=== PATIENT | female | born 1965 | race Caucasian/White ===

== ENCOUNTER 2021-08-14 08:08 | Outpatient (CLI) | payer BC, SELFPAY ==
[2021-08-14 10:27] LABS: Chloride* 104 mmol/L (96-114); Sodium* 139 mmol/L (135-149)
[2021-08-14 10:28] LABS: Potassium* 4.2 mmol/L (3.6-5.1)
[2021-08-14 10:30] LABS: Alanine Aminotransferase* 24 U/L (4-35); Blood Urea Nitrogen* 32 mg/dL (7-30); Carbon Dioxide* 23 mmol/L (20-32); Cholesterol* 204 mg/dL (90-199); Estimated Glomerular Filt Rate 65.71; Glucose* 102 mg/dL (60-115)
[2021-08-14 10:31] LABS: Calcium* 9.5 mg/dL (8.4-10.6); HDL Cholesterol* 102 mg/dL (>=50); LDL Cholesterol Calculated 61 mg/dL (<100); Triglycerides* 206 mg/dL (40-149)
== END 2021-08-14 08:09 | disposition home or self-care (01) ==
PROVIDERS: PCP Family Medicine; Visit Provider Family Medicine
DX: I10 Essential (primary) hypertension (principal); E78.5 Hyperlipidemia, unspecified; E03.9 Hypothyroidism, unspecified; F41.9 Anxiety disorder, unspecified; E05.00 Thyrotoxicosis with diffuse goiter without thyrotoxic crisis or storm; Z11.3 Encounter for screening for infections with a predominantly sexual mode of transmission
CPT/HCPCS: 80048; 80061; 84443; 84460; 87624

== ENCOUNTER 2021-11-05 11:05 | Outpatient (CLI) | payer BC, SELFPAY ==
--- NOTE | 2021-11-05 11:30 | CRLHL7_ITS ---
For Patients: As a result of the Century Cures Act, medical imaging exams and procedure reports are released immediately into your electronic medical record. You may view this report before your referring provider. If you have questions, please contact your health care provider. BILATERAL SCREENING MAMMOGRAM WITH COMPUTER-AIDED DETECTION TECHNIQUE: CC and MLO views were obtained. These mammographic images have been obtained using full-field digital technique. These mammographic images were interpreted with the benefit of computer-aided detection. COMPARISON FILM: 10/24/20, 11/04/17, 06/10/16. FINDINGS: There are scattered areas of fibroglandular density IMPRESSION: There is no radiographic evidence for malignancy. ASSESSMENT: BI-RADS Category 1: Negative RECOMMENDATION: Routine screening mammogram in 1 year. A lay language report of this examination will be provided to the patient. Andres Nguyen M.D. Diagnostic Radiologist [email or web address] GARCIA/Dictated by: Andres Nguyen MD @ 11/05/2021 11:55:00 AM (Electronically Signed)
== END 2021-11-05 11:06 | disposition home or self-care (01) ==
PROVIDERS: PCP Family Medicine; Visit Provider Family Medicine
DX: Z12.31 Encounter for screening mammogram for malignant neoplasm of breast (principal)
CPT/HCPCS: 77063; 77067

== ENCOUNTER 2022-05-09 08:45 | Emergency (ER) | payer BC, SELFPAY ==
[2022-05-09 09:03] VITALS: BP 157/80; PULSE 61; RESP 18; TEMP 36.6; O2SAT 93; BMI 25.4
--- NOTE | 2022-05-09 09:47 | ED.GENADULT ---
HPI - General Adult General Time Seen by Provider: 09:47 Date Seen: 05/09/22 Chief complaint: Extremity Pain/Injury, Upper Stated complaint: numbness in r. arm Time Seen by Provider: 05/09/22 09:19 Source: patient Mode of arrival: ambulatory Limitations: no limitations History of Present Illness HPI narrative: Belkis is a 56-year-old female past medical history includes chronic lower back pain, anxiety, Graves disease, presents emerged department by private car with right arm tingling. Patient states over last few days she has had some dull ache on the right side of her neck that radiates down her right arm, she has some numbness and paresthesias to the ring and little finger, she feels like when she pours at cup of coffee he feels heavy, she denies any real weakness, denies any real pain. No recent injuries to her neck, she has seen a chiropractor in the past. He does has not been feeling well, she denies any chest pain, shortness of breath, nausea vomiting, no trouble swallowing, no trouble with speech, denies any headache. Related Data Home Medications Medication Instructions Recorded Confirmed acetaminophen 500 mg oral powder 500 mg PO Q6H PRN 04/15/22 04/15/22 packet (Tylenol Extra Strength) hydrocodone 5 mg-acetaminophen 325 1 tab PO BID PRN 04/15/22 04/15/22 mg tablet Previous Rx's Medication Instructions Recorded amlodipine 5 mg tablet 5 mg PO QDAY #90 tabs 08/14/21 levothyroxine 100 mcg tablet 100 mcg PO DAILY #90 tabs 01/23/22 atorvastatin 20 mg tablet 20 mg PO QHS #90 tabs 02/07/22 azithromycin 250 mg tablet See Rx Instructions PO .COMPLEX #6 04/15/22 (Zithromax Z-Selvin) tabs benzonatate 200 mg capsule 200 mg PO TID PRN cough #30 caps 04/15/22 methylprednisolone 4 mg tablets in 4 mg PO DAILY #21 ea 05/09/22 a dose pack (Medrol (Selvin)) Allergies Allergy/AdvReac Type Severity Reaction Status Date / Time No Known Drug Allergies Allergy Verified 04/15/22 08:44 Review of Systems Status of ROS: Reports: 10 or more systems reviewed and unremarkable except as noted in History and below [facility] Medical History Anxiety ?F41.9 - Anxiety disorder, unspecified (ICD-10) Chronic low back pain ?M54.50 - Low back pain, unspecified (ICD-10) ?G89.29 - Other chronic pain (ICD-10) Graves' disease ?E05.00 - Thyrotoxicosis with diffuse goiter without thyrotoxic crisis or storm (ICD-10) Health care directive on file (11/30/20) ?Z78.9 - Other specified health status (ICD-10) Hidradenitis suppurativa ?L73.2 - Hidradenitis suppurativa (ICD-10) Hyperlipidemia ?E78.5 - Hyperlipidemia, unspecified (ICD-10) Hypothyroidism ?E03.9 - Hypothyroidism, unspecified (ICD-10) Insomnia ?G47.00 - Insomnia, unspecified (ICD-10) Long QT syndrome (08/02/09) ?I45.81 - Long QT syndrome (ICD-10) 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 - Polyp of vocal cord and larynx (ICD-10) Surgical History (Updated 04/15/22 @ 15:46 by Andres Trimble MD) History of ankle surgery (03/2018) ?Z98.890 - Other specified postprocedural states (ICD-10) History of reduction mammoplasty (2001) ?Z98.890 - Other specified postprocedural states (ICD-10) Family History (Updated 08/14/21 @ 09:53 by Andres Trimble MD) Paternal Grandmother Breast cancer Social History 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 Muscle skeletal: Abduct to 180? the right shoulder, no pain with internal external rotation, no pain with empty can or Neer's Normal motor function to the median, ulnar, radial and anterior interosseous nerve distribution, CMS intact. Neuro: Alert awake and oriented x3, no focal deficit Heart: Normal sinus rhythm S1-S2 Lungs: Clear to auscultation bilaterally Const: Vital Signs, click to edit/add: Vital Signs - 24 hr 05/09/22 09:03 Temperature 97.9 F Pulse Rate [Right Pulse Oximeter] 61 Respiratory Rate 18 Blood Pressure [Ri ght Upper Arm] 157/80 H Pulse Oximetry 93 Oxygen Delivery Me thod Room Air Course Course Hospital Course: 9:00 AM: AIDET performed, exam seems more related to cervical pathology, atypical presentation for ACS, will obtain EKG, CBC, BMP and troponin level. IM dose Decadron 10 mg and Toradol 50 mg for her pain. Will obtain CT cervical spine without contrast. No focal deficits on exam. Differential diagnosis include but not limited to arthritis, fracture, spinal stenosis, sprain and strain, radiculopathy, atypical but considered CAD/mi, peripheral vascular disease, thrombosis. Reevaluation(s) Reevaluation #1: CT cervical spine without contrast: Impression: 1. No acute osseous abnormality. Multilevel cervical spondylosis with cervical kyphotic curvature. 2. Mild spinal canal stenosis at C5-6 and C6-7. 3. Severe right neural foramen stenosis at C4-5, moderate bilateral neural foramen narrowing at C5-6, and severe bilateral neural foramen narrowing at C6-7. Labs showed mild leukocytosis, BMP within normal limits, troponin was negative, ECG showed a normal sinus rhythm with a nonspecific T-wave abnormality, bpm a 78, no acute changes compared to previous. CT did showed severe right neural foraminal stenosis at C4-5 moderate bilateral neural foramina narrowing at C5-C6 and severe bilateral neural foramina narrowing at C6-C7 which would explain her symptoms. Patient will need to follow-up with primary care provider again and then referral to [facility] orthopedic spine. She is feeling better after above care given Time: 12:09 Vital Signs Vital signs: Initial Vital Signs Temperature 97.9 F 05/09/22 09:03 Temperature Source Temporal Artery Scan 05/09/22 09:03 Pulse Rate 61 05/09/22 09:03 Respiratory Rate 18 05/09/22 09:03 Blood Pressure 157/80 H 05/09/22 09:03 Blood Pressure Mean 105 05/09/22 09:03 Blood Pressure Position Sitting 05/09/22 09:03 Pulse Oximetry 93 05/09/22 09:03 Oxygen Delivery Method Room Air 05/09/22 09:03 Vital Signs Temperature 97.9 F 05/09/22 09:03 Pulse Rate 61 05/09/22 09:03 Respiratory Rate 18 05/09/22 09:03 Blood Pressure 157/80 H 05/09/22 09:03 Pulse Oximetry 93 05/09/22 09:03 Oxygen Delivery Method Room Air 05/09/22 09:03 Temperature 97.9 F 05/09/22 09:03 Pulse Rate 61 05/09/22 09:03 Respiratory Rate 18 05/09/22 09:03 Blood Pressure 157/80 H 05/09/22 09:03 Pulse Oximetry 93 05/09/22 09:03 Oxygen Delivery Method Room Air 05/09/22 09:03 Medical Decision Making Lab Data Labs: Lab Results 05/09/22 05/09/22 Range/Units 09:46 10:05 WBC 13.26 H (4.50-11.00) K/uL RBC 4.17 (4.00-5.20) m/uL Hgb 12.5 (12.0-16.0) gm/dL Hct 37.8 (33.0-51.0) % MCV 91 (80-100) fL MCH 30 (26-34) pg MCHC 33 (32-36) gm/dL RDW Coeff of Josselyn 13.0 (11.5-15.5) % Plt Count 440 (140-440) K/uL Neut % (Auto) 83.2 H (42.0-72.0) % Lymph % (Auto) 9.2 L (20-44) % Pitkin % (Auto) 6.3 (0.0-11.0) % Eos % (Auto) 0.7 (0.0-7.0) % Baso % (Auto) 0.1 (0.0-3.0) % Neut # (Auto) 11.00 H (1.7-7.0) K/uL Lymph # (Auto) 1.20 (0.90-2.90) K/uL Pitkin # (Auto) 0.80 (0.00-0.90) K/UL Eos # (Auto) 0.10 (0.00-0.50) K/uL Baso # (Auto) 0.00 (0.00-0.30) K/uL Sodium 138 (135-149) mmol/L Potassium 4.0 (3.6-5.1) mmol/L Chloride 103 (96-114) mmol/L Carbon Dioxide 27 (20-32) mmol/L BUN 8 (7-30) mg/dL Creatinine 0.7 (0.5-1.5) mg/dL Estimated Creat Clear 85.19 Estimated GFR 100 ml/min Glucose 111 (60-115) mg/dL Calcium 8.8 (8.4-10.6) mg/dL POC Troponin I 0.00 L (0.01-0.04) ng/ml Discharge Plan Discharge Clinical Impression: Foraminal stenosis of cervical region Patient Disposition: Home, Self-Care Condition: Improved Instructions: Cervical Spinal Stenosis (ED) Additional Instructions: Continue your current medications for your chronic lower back pain, will add Medrol Dosepak and to take as prescribed. Follow-up with primary care provider in the next 7-10 days consideration for MR cervical spine, and then referral for possible spine injections, through a pain clinic. Return if worsened symptoms. Activity Level: No Restrictions Discharge Diet: Regular Prescriptions: New methylprednisolone [Medrol (Selvin)] 4 mg tablets,dose pack 4 mg PO DAILY Qty: 21 0RF No Action amlodipine 5 mg tablet 5 mg PO QDAY Qty: 90 3RF hydrocodone-acetaminophen 5-325 mg tablet 1 tab PO BID PRN Tylenol Extra Strength 500 mg powder in packet 500 mg PO Q6H PRN azithromycin [Zithromax Z-Selvin] 250 mg tablet See Rx Instructions PO .COMPLEX Qty: 6 0RF Rx Instructions: For 250 mg dose pack: take 500 mg today (day 1), then 250 mg for 4 days (days 2-5) PO benzonatate 200 mg capsule 200 mg PO TID PRN (Reason: cough) Qty: 30 0RF levothyroxine 100 mcg tablet 100 mcg PO DAILY Qty: 90 1RF atorvastatin 20 mg tablet 20 mg PO QHS Qty: 90 1RF Follow Up/Referrals: Andres Trimble MD [Primary Care Provider] - Stand Alone Forms: [employer] Info Instructions
--- NOTE | 2022-05-09 09:49 | CRLHL7_ITS ---
For Patients: As a result of the Century Cures Act, medical imaging exams and procedure reports are released immediately into your electronic medical record. You may view this report before your referring provider. If you have questions, please contact your health care provider. Indication: right radicular pain. Technique: Noncontrast axial CT of the cervical spine with coronal and sagittal reformats are provided. Comparison: No prior studies available for comparison at this institution. Findings: There is degenerative reversal of normal cervical lordosis. No fractures. No prevertebral or paraspinal edema. No aggressive osseous lesions. The craniocervical junction is unremarkable. Degenerative changes in the it anterior atlantoaxial articulation. Anterior osteophytic spurring at C3-4 through C6-7. Severe interspace narrowing at C5-6 and C6-7. Rightward deviation of the nasal septum with septal spur. Incidental bone island in the right T1 lamina C1-2: No spinal canal stenosis C2-3: Advanced left facet arthrosis. No significant spinal canal stenosis or neural foramen narrowing. C3-4: Grade 1 anterolisthesis. Moderate facet arthrosis. No significant spinal canal stenosis or neural foramen narrowing. C4-5: Grade 1 anterolisthesis. Advanced right and mild left facet arthrosis and right uncovertebral joint hypertrophy. Severe right neural foramen narrowing. No significant spinal canal stenosis or left neural foramen narrowing. C5-6: Severe interspace narrowing. Disc osteophyte complex. Mild spinal canal stenosis. Moderate bilateral neural foramen narrowing due to uncovertebral joint hypertrophy. C6-7: Severe interspace narrowing. Disc osteophyte complex results in mild spinal canal stenosis. Severe neural foramen narrowing bilaterally due to uncovertebral joint hypertrophy. C7-T1: Advanced left and mild right facet arthrosis. No significant spinal canal stenosis or neural foramen narrowing. Impression: 1. No acute osseous abnormality. Multilevel cervical spondylosis with cervical kyphotic curvature. 2. Mild spinal canal stenosis at C5-6 and C6-7. 3. Severe right neural foramen stenosis at C4-5, moderate bilateral neural foramen narrowing at C5-6, and severe bilateral neural foramen narrowing at C6-7. Please note that all CT scans at this facility use dose modulation, iterative reconstruction, and/or weight-based dosing when appropriate to reduce radiation dose to as low as reasonably achievable. Dictated by Andres Marley MD @ 05/09/2022 12:02:41 PM (Electronically Signed)
[2022-05-09] MEDS: dexAMETHasone 10 MG/ML inj IM (10:05)
[2022-05-09] MEDS: KETOROLAC 30 MG/ML inj 15 MG IM (10:05)
[2022-05-09 10:26] LABS: Basophils Percent Auto 0.1 % (0.0-3.0); Eosinophils Percent Auto 0.7 % (0.0-7.0); Hematocrit 37.8 % (33.0-51.0); Hemoglobin* 12.5 gm/dL (12.0-16.0); Immature Granulocytes Pct Auto 0.5 %; Lymphocytes Percent Auto 9.2 % (20-44); Mean Corpuscular HGB Conc 33 gm/dL (32-36); Mean Corpuscular Hemoglobin 30 pg (26-34); Mean Corpuscular Volume 91 fL (80-100); Monocytes Percent Auto 6.3 % (0.0-11.0); Neutrophils Percent Auto 83.2 % (42.0-72.0); Platelet Count* 440 K/uL (140-440); Red Blood Count 4.17 m/uL (4.00-5.20); White Blood Count* 13.26 K/uL (4.50-11.00)
[2022-05-09 10:30] LABS: Chloride* 103 mmol/L (96-114)
[2022-05-09 10:31] LABS: Sodium* 138 mmol/L (135-149)
[2022-05-09 10:33] LABS: Creatinine* 0.7 mg/dL (0.5-1.5); Est. Creatinine Clearance* 85.19; Estimated Glomerular Filt Rate 100 ml/min
[2022-05-09 10:34] LABS: Blood Urea Nitrogen* 8 mg/dL (7-30); Calcium* 8.8 mg/dL (8.4-10.6); Carbon Dioxide* 27 mmol/L (20-32); Glucose* 111 mg/dL (60-115)
[2022-05-09 10:36] LABS: Slide Review Reflex No
[2022-05-09 12:24] VITALS: BP 157/80; PULSE 61; RESP 18; TEMP 36.6
== END 2022-05-09 12:25 | disposition home or self-care (01) ==
PROVIDERS: Emergency Provider Student in an Organized Health Care Education/Training Program; PCP Family Medicine
DX: M48.02 Spinal stenosis, cervical region (principal)
CPT/HCPCS: 36415; 72125; 80048; 84484; 85025; 93005; 96372; 99283; 99284; J1100; J1885

== ENCOUNTER 2022-05-27 09:02 | Emergency (ER) | payer BC, SELFPAY ==
[2022-05-27] VITALS (17 sets, daily range): BP systolic 115–134; BP diastolic 58–69; PULSE 64–81; RESP 20; TEMP 36.3; O2SAT 88–95; BMI 25.8
--- NOTE | 2022-05-27 09:29 | ED_ITS ---
HPI - Chest Pain General Time Seen by Provider: 09:29 Date Seen: 05/27/22 Chief Complaint: Chest Pain Stated Complaint: R side pain, difficulty breathing Time Seen by Provider: 05/27/22 09:29 Source: patient, RN notes reviewed and old records reviewed Mode of arrival: ambulatory Limitations: no limitations History of Present Illness HPI narrative: Neelima is a very pleasant 56-year-old female who has a history of chronic back and neck pain, recent physical therapy for cervical issues and right upper extremity spasm and weakness who comes to the emergency room for right-sided chest pain. Patient notes that she awoke with this right-sided chest pain 1 week ago. She cannot recall any specific injury to the area but thought it might be related to her neck problems. She notes that it seems to be much worse in the morning and it hurts when she is trying to take a deep breath. She notes that hurts more to lie flat. She has had an intermittent dry nonproductive cough since being diagnosed with and treated for bronchitis approximately a month and a half ago. She was treated with Tessalon Perles as well as an antibiotic but feels that she never really fully recovered. She denies any fever or chills. She is a smoker. She has been using pain medication meant for her neck for her chest discomfort. This seems to help somewhat. Related Data Home Medications Medication Instructions Recorded Confirmed acetaminophen 500 mg oral powder 500 mg PO Q6H PRN 04/15/22 05/13/22 packet (Tylenol Extra Strength) hydrocodone 5 mg-acetaminophen 325 1 tab PO BID PRN 04/15/22 05/13/22 mg tablet Previous Rx's Medication Instructions Recorded amlodipine 5 mg tablet 5 mg PO QDAY #90 tabs 08/14/21 levothyroxine 100 mcg tablet 100 mcg PO DAILY #90 tabs 01/23/22 atorvastatin 20 mg tablet 20 mg PO QHS #90 tabs 02/07/22 methylprednisolone 4 mg tablets in 4 mg PO DAILY #21 ea 05/09/22 a dose pack (Medrol (Selvin)) tizanidine 2 mg tablet 2 mg PO Q8H PRN muscle spasticity 05/13/22 #20 tabs hydrocodone 5 mg-acetaminophen 325 1 tab PO Q6H PRN pain #30 tabs 05/27/22 mg tablet levofloxacin 500 mg tablet 500 mg PO DAILY 7 days #7 tabs 05/27/22 Allergies Allergy/AdvReac Type Severity Reaction Status Date / Time No Known Drug Allergies Allergy Verified 05/13/22 08:05 Review of Systems Status of ROS Reports: 10 or more systems reviewed and unremarkable except as noted in History and below Const Denies: fever, chills or change in weight Eyes Denies: change in vision ENMT Denies: throat pain, neck pain, throat swelling or difficulty swallowing Cardio Reports: chest pain and shortness of breath with exertion; Denies: palpitations, edema, swelling of feet/ankles or lightheadedness Resp Reports: shortness of breath and cough; Denies: wheezing GI Denies: abdominal pain, nausea, vomiting, diarrhea or difficulty swallowing Denies: painful urination or urinary frequency Musculo Denies: neck pain Integ/Breast Denies: rash Neuro Denies: headache, numbness in extremities or weakness in extremities Allergy/Immuno Denies: throat swelling or wheezing PFSH PFSH Medical History Anxiety ?F41.9 - Anxiety disorder, unspecified (ICD-10) Chronic low back pain ?M54.50 - Low back pain, unspecified (ICD-10) ?G89.29 - Other chronic pain (ICD-10) Graves' disease ?E05.00 - Thyrotoxicosis with diffuse goiter without thyrotoxic crisis or storm (ICD-10) Health care directive on file (11/30/20) ?Z78.9 - Other specified health status (ICD-10) Hidradenitis suppurativa ?L73.2 - Hidradenitis suppurativa (ICD-10) Hyperlipidemia ?E78.5 - Hyperlipidemia, unspecified (ICD-10) Hypothyroidism ?E03.9 - Hypothyroidism, unspecified (ICD-10) Insomnia ?G47.00 - Insomnia, unspecified (ICD-10) Long QT syndrome (08/02/09) ?I45.81 - Long QT syndrome (ICD-10) 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 - Polyp of vocal cord and larynx (ICD-10) Surgical History History of ankle surgery (03/2018) ?Z98.890 - Other specified postprocedural states (ICD-10) History of reduction mammoplasty (2002) ?Z98.890 - Other specified postprocedural states (ICD-10) Family History Paternal Grandmother Breast cancer Social History 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: , 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, 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, 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, 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 Smoking Status: Current every day smoker What tobacco products do you use: cigarettes Do you use any of these nicotine containing products: None Second hand tobacco smoke exposure: No How often do you have a drink containing alcohol: monthly or less How many standard drinks containing alcohol do you have on a typical day: 1 or 2 How often do you have six or more drinks on one occasion: Never AUDIT-C Alcohol total score: 1 Non-prescribed substance use: denies use Little interest or pleasure in doing things: not at all Feeling down, depressed, or hopeless: not at all service: No Exam Narrative Exam Narrative: Alert and oriented. Talkative and nontoxic in appearance. Neck is supple without lymphadenopathy. Heart with regular rate and rhythm without murmur or rub. Lungs show decreased breath sounds on the right. No crackles or wheezing. Abdomen shows tenderness in the ribcage floating ribs on the right. Really no pain over epigastrium. She has discomfort with palpation on the right CVA. Nose rashes or lesions here. Bowel sounds are present. Lower extremities without edema or calf tenderness. Const Vital Signs, click to edit/add: Vital Signs - 24 hr 05/27/22 09:16 05/27/22 09:30 05/27/22 09:32 Temperature 97.4 F L Pulse Rate 74 73 Pulse Rate [Pulse Oximeter] 81 Respiratory Rate 20 Blood Pressure 122/58 L Blood Pressure [Right Upper Arm] 134/69 Pulse Oximetry 92 92 92 Oxygen Delivery Method Room Air 05/27/22 09:45 05/27/22 10:00 05/27/22 10:02 Temperature Pulse Rate 72 71 73 Pulse Rate [Pulse Oximeter] Respiratory Rate Blood Pressure 129/62 Blood Pressure [Right Upper Arm] Pulse Oximetry 93 94 94 Oxygen Delivery Method 05/27/22 10:15 05/27/22 10:44 05/27/22 10:45 Temperature Pulse Rate 71 71 69 Pulse Rate [Pulse Oximeter] Respiratory Rate Blood Pressure Blood Pressure [Right Upper Arm] Pulse Oximetry 95 94 95 Oxygen Delivery Method 05/27/22 11:00 05/27/22 11:01 05/27/22 11:15 Temperature Pulse Rate 66 65 65 Pulse Rate [Pulse Oximeter] Respiratory Rate Blood Pressure 128/60 Blood Pressure [Right Upper Arm] Pulse Oximetry 92 93 90 Oxygen Delivery Method 05/27/22 11:30 05/27/22 11:32 05/27/22 11:45 Temperature Pulse Rate 65 65 64 Pulse Rate [Pulse Oximeter] Respiratory Rate Blood Pressure 115/59 L Blood Pressure [Right Upper Arm] Pulse Oximetry 90 91 88 Oxygen Delivery Method 05/27/22 12:00 05/27/22 12:01 Temperature Pulse Rate 73 71 Pulse Rate [Pulse Oximeter] Respiratory Rate Blood Pressure 134/68 Blood Pressure [Right Upper Arm] Pulse Oximetry 93 92 Oxygen Delivery Method Documenting provider has reviewed patient's vital signs: yes Course Course Hospital Course: Differential diagnosis includes but is not limited to acute coronary syndrome, pneumonia, pleurisy, chest wall pain/costochondritis, PE, pneumothorax. Will place IV and draw labs to include CBC, troponin, comprehensive, CRP. Will also get EKG and chest x-ray. Patient receptive to the use of Toradol at this time. Given pleuritic nature of the pain as well as he reassuring EKG, I do not think that this is acute coronary syndrome. Reevaluation(s) Reevaluation #1: Chest x-ray with pleural effusion which is consistent with decreased breath sounds on that side. Patient receptive to CT with IV contrast at this time. Vital Signs Vital signs: Initial Vital Signs Temperature 97.4 F L 05/27/22 09:16 Temperature Source Temporal Artery Scan 05/27/22 09:16 Pulse Rate 81 05/27/22 09:16 Pulse Rhythm Regular 05/27/22 09:16 Respiratory Rate 20 05/27/22 09:16 Blood Pressure 134/69 05/27/22 09:16 Blood Pressure Mean 90 05/27/22 09:16 Blood Pressure Position Supine 05/27/22 09:16 Pulse Oximetry 92 05/27/22 09:16 Oxygen Delivery Method Room Air 05/27/22 09:16 Vital Signs Temperature 97.4 F L 05/27/22 09:16 Pulse Rate 81 05/27/22 09:16 Respiratory Rate 20 05/27/22 09:16 Blood Pressure 134/69 05/27/22 09:16 Pulse Oximetry 92 05/27/22 09:16 Oxygen Delivery Method Room Air 05/27/22 09:16 Temperature 97.4 F L 05/27/22 09:16 Pulse Rate 71 05/27/22 12:01 Respiratory Rate 20 05/27/22 09:16 Blood Pressure 134/68 05/27/22 12:01 Pulse Oximetry 92 05/27/22 12:01 Oxygen Delivery Method Room Air 05/27/22 09:16 MDM - Chest Pain MDM Narrative Medical decision making narrative: 1. Lung mass-pleural effusion likely causing pleuritic chest pain in this patient. Head given elevated white count and fluid will treat with antibiotic Levaquin. Patient does have a history of prolonged QT but no evidence of that on the CT today. I think that this is likely superior treatment than Zithromax or Augmentin. I did discuss history of QT with the patient and she is not aware of this diagnosis. 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 While we are treating for infection, I did discuss with Belkis the possibility that this is lung cancer. I will contact her primary doctor Nai so that she can get a referral. His office will call her with further instructions. O2 sats appropriate at this time. Will give patient refill of her Vicodin 5/325 1- 2 tabs p.o. q.6 hours p.r.n. number 30 sent to her pharmacy. 2. History of prolonged QT-normal QT today on EKG. 3. Disposition-home at this time. Seek medical attention or return to the emergency room for worsening symptoms. Medical Records Data Attestation: I reviewed the patient's medical records. Lab Data Attestation: I reviewed the patient's lab results. Labs: Lab Results 05/27/22 05/27/22 Range/Units 09:41 09:57 WBC 19.42 H (4.50-11.00) K/uL RBC 3.50 L (4.00-5.20) m/uL Hgb 10.1 L (12.0-16.0) gm/dL Hct 30.9 L (33.0-51.0) % MCV 88 (80-100) fL MCH 29 (26-34) pg MCHC 33 (32-36) gm/dL RDW Coeff of Josselyn 13.7 (11.5-15.5) % Plt Count 473 H (140-440) K/uL Neut % (Auto) 87.3 H (42.0-72.0) % Lymph % (Auto) 6.2 L (20-44) % Dunn % (Auto) 5.3 (0.0-11.0) % Eos % (Auto) 0.4 (0.0-7.0) % Baso % (Auto) 0.1 (0.0-3.0) % Neut # (Auto) 17.00 H (1.7-7.0) K/uL Lymph # (Auto) 1.20 (0.90-2.90) K/uL Dunn # (Auto) 1.00 H (0.00-0.90) K/UL Eos # (Auto) 0.10 (0.00-0.50) K/uL Baso # (Auto) 0.00 (0.00-0.30) K/uL Sodium 131 L (135-149) mmol/L Potassium 3.2 L (3.6-5.1) mmol/L Chloride 94 L (96-114) mmol/L Carbon Dioxide 32 (20-32) mmol/L BUN 10 (7-30) mg/dL Creatinine 0.7 (0.5-1.5) mg/dL Estimated Creat Clear 85.19 Estimated GFR 100 ml/min Glucose 120 H (60-115) mg/dL Calcium 8.1 L (8.4-10.6) mg/dL Total Bilirubin 0.5 (0.1-1.5) mg/dL Direct Bilirubin 0.4 (0.0-0.5) mg/dL AST 23 (12-35) U/L ALT 16 (4-35) U/L Alkaline Phosphatase 232 H (40-150) U/L C-Reactive Protein 39.9 H (0.5-1.0) mg/dL Total Protein 6.8 (6.0-8.3) g/dL Albumin 3.3 (3.3-5.0) g/dL POC Troponin I 0.00 L (0.01-0.04) ng/ml Imaging Data Chest x-ray: Attestation: I have reviewed the pertinent imaging results. My impression: Right-sided pleural effusion Radiologist's impression: Cardiovascular and mediastinum: Heart size and vasculature are normal in caliber and appearance. Lungs and pleural space: Small right pleural effusion with consolidation in the inferior aspect of the right hemithorax consistent with atelectasis or pneumonia. Left lung clear. Bones and soft tissues: No acute findings. CT scan - chest: Attestation: I have reviewed the pertinent imaging results. My impression: Large right-sided pleural effusion Radiologist's impression: he thoracic inlet and thyroid gland are unremarkable. The thoracic aorta is nonaneurysmal. There is no central filling defect to suggest pulmonary embolism. There is bulky subcarinal and right hilar pulmonary mass lesions with encasement of the right lower lobe bronchi measuring 6.7 x 5.3 centimeters in greatest axial dimension on series 2, image 47. there are additional enlarged right paratracheal lymph nodes the most prominent seen on series 2, image 29 measuring 1.2 centimeters. There is mild to moderate central bronchial thickening. There is dense postobstructive consolidation of the right lower lobe and inferior upper lobes with associated right-sided pleural effusion. There is minimal left basilar atelectasis and demonstration of a small pneumatocele. There is no evidence of pulmonary mass or suspicious pulmonary nodule. The partially visualized upper abdominal viscera are within normal limits. The thoracic vertebral body heights remain intact alignment without significant degenerative change or acute osseous abnormality. Impression: Demonstration of a bulky subcarinal and right hilar mass measuring 6.7 centimeters in greatest dimension with encasement of the right bronchovascular structures and occlusion of the right lower lobe bronchus with dense postobstructive infiltrate and atelectasis. Moderate right-sided pleural effusion. Recommend follow-up with bronchoscopy and tissue sampling for definitive characterization of presumed bronchogenic malignancy. No evidence of pulmonary embolus. ECG Data Attestation: I personally reviewed and interpreted this ECG as follows: ECG interpretation date: 05/27/22 Interpretation: EKG by my read shows normal sinus rhythm at a rate of 76. No acute ST or T-wave changes are noted. QT is normal at 452 milliseconds. Discharge Plan Discharge Clinical Impression: Lung mass, Chest pain Patient Disposition: Home, Self-Care Condition: Unchanged Additional Instructions: Start antibiotic called Levaquin today. Hydrocodone/acetaminophen may be used for pain as needed. Await phone call from Dr. Trimble office. Return to the emergency room as needed. Prescriptions: New levofloxacin 500 mg tablet 500 mg PO DAILY 7 Days Qty: 7 0RF hydrocodone-acetaminophen 5-325 mg tablet 1 tab PO Q6H PRN (Reason: pain) Qty: 30 0RF Rx Instructions: 1-2 tabs every 6 hours as needed for discomfort. Please do not take extra acetaminophen. No Action tizanidine 2 mg tablet 2 mg PO Q8H PRN (Reason: muscle spasticity) Qty: 20 0RF amlodipine 5 mg tablet 5 mg PO QDAY Qty: 90 3RF hydrocodone-acetaminophen 5-325 mg tablet 1 tab PO BID PRN Tylenol Extra Strength 500 mg powder in packet 500 mg PO Q6H PRN methylprednisolone [Medrol (Selvin)] 4 mg tablets,dose pack 4 mg PO DAILY Qty: 21 0RF levothyroxine 100 mcg tablet 100 mcg PO DAILY Qty: 90 1RF atorvastatin 20 mg tablet 20 mg PO QHS Qty: 90 1RF Follow Up/Referrals: Andres Trimble MD [Primary Care Provider] - Stand Alone Forms: [employer] Info Instructions
--- NOTE | 2022-05-27 09:44 | CRLHL7_ITS ---
For Patients: As a result of the Century Cures Act, medical imaging exams and procedure reports are released immediately into your electronic medical record. You may view this report before your referring provider. If you have questions, please contact your health care provider. Indication: Cough and right-sided chest pain Technique: Chest 1 view Comparison: None Findings/Impression: Cardiovascular and mediastinum: Heart size and vasculature are normal in caliber and appearance. Lungs and pleural space: Small right pleural effusion with consolidation in the inferior aspect of the right hemithorax consistent with atelectasis or pneumonia. Left lung clear. Bones and soft tissues: No acute findings. Dictated by Aris Trujillo MD @ 05/27/2022 10:30:04 AM (Electronically Signed)
--- OUTSIDE RECORDS SUMMARY | 2022-05-27 09:48 | XMS_ITS | Continuity of Care Document ---
Author Name Unknown Organization [facility] Address [address] [place] [id number] Care Team Providers Care [employer] [address] [address] Name Role Phone [facility] Unavailable Unav ailable Procedures Procedure Date INJECT SACROILIAC JOINT Inj for sacroiliac jt anesth Inj for sacroiliac jt anesth INJ FORAMEN EPIDURAL L/S INJ FORAMEN EPIDURAL L/S Inj for sacroiliac jt anesth Advance Directives Directive Yes / No Effective Date File Name No Information Encounters Encounter Description Practice Location Reason(s) For Visit Diagnoses Date Provider Providers Copied on Encounter [facility], [address] [place] [address], [id number], [facility] No Information [facility]. [address] [place] [address], [id number], . tel:[phone] Referring Provider: Renetta Bush, [address] [place] [address], [id number]. tel:[phone] [facility], [address] [place] [address], [id number], [facility] No Information [facility]. [address] [place] [address], [id number], . tel:[phone] Referring Provider: Renetta Bush, [address] [place] [address], [id number]. tel:[phone] [facility], [address], [place], [id number], [facility] [place] No Information [facility]. [address], [place], [id number], . tel:[phone] Referring Provider: Beth Vick, [address] [place], [address]. tel:[phone] [facility], [address], [place], [id number], [facility] [place] No Information [facility]. [address], [place], [id number], . tel:[phone] Referring Provider: Miles Jiménez, [address] [place] [address], [id number]. tel:[phone] Family History Family Member Type Diagnosis Age At Onset No Information Payers Payer name Insurance type Covered republican ID Authoriza ticarlton(s) No Information Social History Type Description Quantity Date Captured Comments Sex Female Smoking Status No Information Chief Complaint And Reason For Visit No Information Reason For Referral Reason For Referral No Information Plan Of Treatment Date Type Action Status No Information History Of Present Illness Encounter Date Complaint History Of Prese nt Illness No Information Functional Status Date Functional Assessmen t No Information Instructions Date Instruction Additional Infor mation No Information Assessments Type Assessment Date No Information Patient Care Teams Name Effective Dates (start - stop) Status Members No Information
--- OUTSIDE RECORDS SUMMARY | 2022-05-27 09:48 | XMS_ITS | Continuity of Care Document ---
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 [address] [place] [address], [id number], [place]. tel:[phone] Referring Provider: Miles Rey, [address] [facility] [address], [place], [address]. tel:[phone] [facility], [address] [place] [address], [id number], tel:[phone] [facility] No Information 2 [facility]. [address] [place] [address], [id number], . tel:[phone] Referring Provider: Liam Blakely, [address] [place], [address]. tel:[phone] [facility], [address] [place] [address], [id number], tel:[phone] [facility] No Information 2 [facility]. [address] [place] [address], [id number], . tel:[phone] Referring Provider: Renetta Bush, [address] [place], [address]. tel:[phone] [facility], [address] [place] [address], [id number], tel:[phone] [facility] No Information 0 [facility]. [address] [place] [address], [id number], . tel:[phone] Referring Provider: Liam Blakely, [address] [place], [address]. tel:[phone] Family History Family Member Type Diagnosis Age At Onset No Information Payers Payer name Insurance type Covered alliance party ID Authordereka ticarlton(s) [employer] Ariel Garnica BL [id number] Social History Type Description Quantity Date Captured [...]
--- OUTSIDE RECORDS SUMMARY | 2022-05-27 09:49 | XMS_ITS | Continuity of Care Document ---
Author Name Unknown Organization [facility] Address [address] [facility] 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 Name Role Phone Andres Thomason Unavailable Unavailable Allergies, Adverse Reactions, Alerts Substance Reaction Status Criticality No Known Allergies Active No Inform ation Medications Medication Instructions Dosage Effective Dates (start - stop) Status Comments hydrocodone 5 mg-acetaminophen 325 mg tablet take 1 tablet by oral route every 8-12 hours as needed for chronic pain; max 3/day - Active to fill 05/15, to start 05/20 benzonatate 200 mg capsule take 1 capsule by oral route 3 times every day as needed for cough 200 MG - Active atorvastatin 20 mg tablet take 1 tablet by oral route every day 20 MG - Active Tirosint 100 mcg capsule take 1 capsule by oral route every day 100 MCG - Active Tylenol Extra Strength 500 mg tablet take 2 tablet by oral route every 4 - 6 hours as needed not to exceed 8 tablets per 24hrs 1000 MG - Active hydrocodone 5 mg-acetaminophen 325 mg tablet take 1 tablet by oral route every 8-12 hours as needed for chronic pain; max 3/day - No Longer Active Fill when able Procedures Procedure Date Foll-up eval q3mo opiod tx OFFICE VISIT, EST TELEMEDICINE Foll-up eval q3mo opiod tx OFFICE/OUTPATIENT VISIT, EST Drug Urine Toxology With Chromatography Drug test def 8-14 classes Injection Sacroiliac Left Foll-up eval q3mo opiod tx OFFICE VISIT, EST TELEMEDICINE Foll-up eval q3mo opiod tx OFFICE VISIT, EST TELEMEDICINE Drug Urine Toxology With Chromatography Drug test def 8-14 classes Foll-up eval q3mo opiod tx OFFICE/OUTPATIENT VISIT, EST Foll-up eval q3mo opiod tx OFFICE VISIT, EST TELEMEDICINE Injection Sacroiliac Left Foll-up eval q3mo opiod tx OFFICE VISIT, EST TELEMEDICINE Drug Urine Toxology With Chromatography Drug test def 8-14 classes INJ TRIGGER POINT, 1/2 MUSCL Foll-up eval q3mo opiod tx OFFICE/OUTPATIENT VISIT, EST Kenalog Triamcinolone acetonide inj Foll-up eval q3mo opiod tx OFFICE VISIT, EST TELEMEDICINE Foll-up eval q3mo opiod tx OFFICE VISIT, EST TELEMEDICINE Injection Sacroiliac Left Foll-up eval q3mo opiod tx OFFICE VISIT, EST TELEMEDICINE Foll-up eval q3mo opiod tx OFFICE VISIT, EST TELEMEDICINE Drug test def 8-14 classes Drug Urine Toxology With Chromatography INJ TRIGGER POINT, 1/2 MUSCL Kenalog Triamcinolone acetonide inj PT-FOCUSED HLTH RISK ASSMT Foll-up eval q3mo opiod tx OFFICE/OUTPATIENT VISIT, EST Foll-up eval q3mo opiod tx OFFICE VISIT, EST TELEMEDICINE Foll-up eval q3mo opiod tx OFFICE VISIT, EST TELEMEDICINE Foll-up eval q3mo opiod tx OFFICE VISIT, EST TELEMEDICINE Injection Sacroiliac Left Foll-up eval q3mo opiod tx OFFICE VISIT, EST TELEMEDICINE Foll-up eval q3mo opiod tx OFFICE VISIT, EST TELEMEDICINE Foll-up eval q3mo opiod tx OFFICE VISIT, EST TELEMEDICINE INJ TRIGGER POINT, /2 MUSCL Kenalog Triamcinolone acetonide inj Foll-up eval q3mo opiod tx OFFICE VISIT, EST TELEMEDICINE Foll-up eval q3mo opiod tx OFFICE VISIT, EST TELEMEDICINE OFFICE VISIT, EST TELEMEDICINE Foll-up eval q3mo opiod tx OFFICE VISIT, EST TELEMEDICINE Foll-up eval q3mo opiod tx OFFICE VISIT, EST TELEMEDICINE Foll-up eval q3mo opiod tx Injection Sacroiliac Left OFFICE VISIT, EST TELEMEDICINE Foll-up eval q3mo opiod tx OFFICE VISIT, EST TELEMEDICINE Foll-up eval q3mo opiod tx OFFICE VISIT, EST TELEMEDICINE Foll-up eval q3mo opiod tx Drug Urine Toxology With Chromatography Kenalog Triamcinolone acetonide inj INJ TRIGGER POINT, 1/2 MUSCL Foll-up eval q3mo opiod tx OFFICE/OUTPATIENT VISIT, EST Foll-up eval q3mo opiod tx OFFICE VISIT, EST TELEMEDICINE 20 INJ FORAMEN EPIDURAL L/S BILATERAL OFFICE VISIT, EST TELEMEDICINE Foll-up eval q3mo opiod tx OFFICE VISIT, EST TELEMEDICINE 20 Foll-up eval q3mo opiod tx OFFICE VISIT, EST TELEMEDICINE 20 Foll-up eval q3mo opiod tx INJ TRIGGER POINT, 02/18 [facility] Foll-up eval q3mo opiod tx OFFICE/OUTPATIENT VISIT, EST INJ FORAMEN EPIDURAL L/S BILATERAL OFFICE VISIT, EST TELEMEDICINE 20 Foll-up eval q3mo opiod tx Foll-up eval q3mo opiod tx OFFICE VISIT, EST TELEMEDICINE 20 Foll-up eval q3mo opiod tx OFFICE VISIT, EST TELEMEDICINE 20 Injection Sacroiliac Left Foll-up eval q3mo opiod tx OFFICE VISIT, EST TELEMEDICINE 20 Foll-up eval q3mo opiod tx OFFICE VISIT, EST TELEMEDICINE Drug Urine Toxology With Chromatography PT-FOCUSED HLTH RISK ASSAK OFFICE/OUTPATIENT VISIT, NEW Advance Directives Directive Yes / No Effective Date File Name No Information Encounters Encounter Description Practice Location Reason(s) For Visit Diagnoses Date Provider Providers Copied on Encounter OFFICE VISIT, EST TELEMEDICINE [facility], [address] [facility] [place], [id number] , [place] tel:[phone] [facility] [place] low back pain (chief complaint) Spinal stenosis, lumbar regionSacroilii tisMyalgia, other siteRadiculopat hy, lumbar regionLong term (current) use of opiate analgesicChroni c pain syndrome Apr- 3 Jenny Campos. [address] [place] [address], [id number], [place]. tel:[phone] Referring Provider: Miles Jiménez, [address] [place] [address], [id number]. tel:[phone] OFFICE/OUTPAT IENT VISIT, [facility], [address] [place] [address], [id number] , [place] [phone] [facility] low back pain (chief complaint) SacroiliitisSpi nal stenosis, lumbar regionRadiculop athy, lumbar regionMyalgia, other siteLong term (current) use of opiate analgesic Apr-0 3 Kelsey Arrington. [address] [place] [address], [id number], [place]. tel:[phone] Referring Provider: Miles Jiménez, [address] [place] [address], [id number]. tel:[phone] [facility], [address] [place] [address], [id number] , [place] [phone] [facility] No Information 3 Kelsey Arrington. [address] [place] [address], [id number], [place]. tel:[phone] [facility], [address] [place] [address], [id number] , [place] tel:[phone] [facility] Sacroiliitis, not elsewhere classified 3 Krissy Aquino. [address] [facility] [address], [place], [id number], [place]. tel:[phone] Referring Provider: Miles Jiménez, [address] [place] [address], [address]. tel:[phone] OFFICE VISIT, EST TELEMEDICINE [facility], [address] [place] [address], [id number] , [place] tel:[phone] [facility] low back pain (chief complaint) SacroiliitisSpi nal stenosis, lumbar regionRadiculop athy, lumbar regionMyalgia, other siteLong term (current) use of opiate analgesic 0 3 Colehina Arrington. [address] [place] [address], [id number], [place]. tel:[phone] OFFICE VISIT, EST TELEMEDICINE [facility], [address] [place] [address], [id number] , [place] tel:[phone] [facility] low back pain (chief complaint) SacroiliitisSpi nal stenosis, lumbar regionRadiculop athy, lumbar regionMyalgia, other siteLong term (current) use of opiate analgesic 2 Colehina Arrington. [address] [place] [address], [id number], [place]. tel:[phone] [facility], [address] [place] [address], [id number] , [place] [phone] [facility] No Information 2 Cole Murphy. [address] [place] [address], [id number], [place]. tel:[phone] Referring Provider: Miles Jiménez, [address] [place] [address], [id number]. tel:[phone] OFFICE/OUTPAT IENT VISIT, [facility], [address] [place] [address], [id number] , [place] tel:[phone] [facility] low back pain (chief complaint) SacroiliitisSpi nal stenosis, lumbar regionRadiculop athy, lumbar regionMyalgia, other siteLong term (current) use of opiate analgesicEncoun ter for therapeutic drug level monitoring 2 Cole Murphy. [address] [place] [address], [id number], [place]. tel:[phone] Referring Provider: Miles Jiménez, [address] [place] [address], [address]. tel:[phone] OFFICE VISIT, EST TELEMEDICINE [facility], [address] [place] [address], [id number] , [place] [phone] [facility] low back pain (chief complaint) SacroiliitisSpi nal stenosis, lumbar regionRadiculop athy, lumbar regionMyalgia, other siteLong term (current) use of opiate analgesic Oct-3 2 Cole Murphy. [address] [place] [address] [address], [place], [id number], [place]. tel:[phone] [facility], [address] [place] [address], [id number] , [place] tel:[phone] [facility] Sacroiliitis, not elsewhere classified Sep-3 2 Reddy Wheeler. [address] [place] [address], [id number], [place]. tel:[phone] Referring Provider: Miles Jiménez, [address] [place] [address], [address]. tel:[phone] OFFICE VISIT, EST TELEMEDICINE [facility], [address] [place] [address], [id number] , [place] [phone] [facility] low back pain (chief complaint) SacroiliitisSpi nal stenosis, lumbar regionRadiculop athy, lumbar regionMyalgia, other siteLong term (current) use of opiate analgesic Sep-2 2 Kelsey Arrington. [address] [place] [address], [id number], [place]. tel:[phone] Referring Provider: Miles Jiménez, [address] [place] [address], [address]. tel:[phone] [facility], [address] [place] [address], [id number] , [place] tel:[phone] [facility] No Information 2 Colehina Arrington. [address] [place] [address] 11 [facility] [address], [place], [id number], [place]. tel:[phone] Referring Provider: Miles Jiménez, [address] [place] [address], [id number]. [phone] OFFICE/OUTPAT IENT VISIT, EST [facility], [address] [place] [address], [id number] , [place] tel:[phone] [facility] low back pain (chief complaint) SacroiliitisSpi nal stenosis, lumbar regionRadiculop athy, lumbar regionMyalgia, other siteLong term (current) use of opiate analgesic 2 Kelsey Arrington. [address] [facility] [address], [place], [id number], [place]. [phone] Referring Provider: Miles Jiménez, [address] [place] [address], [address]. [phone] OFFICE VISIT, [facility] TELEMEDICINE [facility], [address] [place] [address], [id number] , [place] tel:[phone] [facility] Back Pain (chief complaint) SacroiliitisSpi nal stenosis, lumbar regionRadiculop athy, lumbar regionMyalgia, other siteLong term (current) use of opiate analgesic 2 Colehina Arrington. [address] [place] [address] [address], [place], [id number], [place]. tel:[phone] OFFICE VISIT, [facility] TELEMEDICINE [facility], [address] [place] [address], [id number] , [place] tel:[phone] [facility] Back Pain (chief complaint) SacroiliitisSpi nal stenosis, lumbar regionRadiculop athy, lumbar regionMyalgia, other siteLong term (current) use of opiate analgesic 2 Kelsey Arrington. [address] [place] [address] [address], [place], [id number], [place]. tel:[phone] [facility], [address] [place] [address], [id number] , [place] tel:[phone] [facility] Sacroiliitis, not elsewhere classified 2 Eleazar Jackson. [address] [place] [address], [id number], [place]. tel:[phone] Referring Provider: Miles Jiménez, [address] [place] [address], [address]. tel:[phone] OFFICE VISIT, [facility] TELEMEDICINE [facility], [address] [place] [address], [id number] , [place] tel:[phone] [facility] Back Pain (chief complaint) SacroiliitisSpi nal stenosis, lumbar regionRadiculop athy, lumbar regionMyalgia, other siteLong term (current) use of opiate analgesic James-0 2 Cole Murphy. [address] [place] [address] [address], [place], [id number], [place]. tel:[phone] Referring Provider: Miles Jiménez, [address] [place] [address], [address]. tel:[phone] OFFICE VISIT, [facility], [address] [place] [address], [id number] , [place] tel:[phone] [facility] Back Pain (chief complaint) SacroiliitisSpi nal stenosis, lumbar regionRadiculop athy, lumbar regionMyalgia, other siteLong term (current) use of opiate analgesic June-0 2 Colekayla Arrington. [address] [place] [address] [address], [place], [id number], [place]. tel:[phone] [facility], [address] [place] [address], [id number] , [place] [phone] [facility] No Information Apr- 2 Cole Murphy. [address] [place] [address] [address], [place], [id number], [place]. tel:[phone] OFFICE/OUTPAT IENT VISIT, [facility], [address] [place] [address], [id number] , [place] tel:[phone] [facility] Back Pain (chief complaint) Myalgia, other siteSacroiliiti sSpinal stenosis, lumbar regionRadiculop athy, lumbar regionLong term (current) use of opiate analgesicEncoun ter for screening for other disorderEncdaniel [facility] er for therapeutic drug level monitoring 2 Colehina Arrington. [address] [facility] [address], [id number], [place]. tel:[phone] Referring Provider: Miles Jiménez, [address] [place] [address], [address]. tel:[phone] OFFICE VISIT, EST TELEMEDICINE [facility], [address] [place] [address], [id number] , [place] [phone] [facility] [place] No Information 2 Cole Murphy. [address] [place] [address], [id number], [place]. tel:[phone] Referring Provider: Miles Jiménez, [address] [place] [address], [address]. tel:[phone] OFFICE VISIT, EST TELEMEDICINE [facility], [address] [place] [address], [id number] , [place] [phone] [facility] Back Pain (chief complaint) Radiculopathy, lumbar regionSacroilii tisSpinal stenosis, lumbar regionMyalgia, other siteLong term (current) use of opiate analgesic 2 Cole Murphy. [address] [place] [address], [id number], [place]. tel:[phone] OFFICE VISIT, EST TELEMEDICINE [facility], [address] [place] [address], [id number] , [place] [phone] [facility] Back Pain (chief complaint) Radiculopathy, lumbar regionSacroilii tisSpinal stenosis, lumbar regionMyalgia, other siteLong term (current) use of opiate analgesic 1 Cole Murphy. [address] [place] [address], [id number], [place]. tel:[phone] [facility], [address] [place] [address], [id number] , [place] tel:[phone] [facility] Sacroiliitis Dec-0 3-202 1 Eleazar Jackson. [address] [place] [address], [id number], [place]. tel:[phone] Referring Provider: Miles Jiménez, [address] [place] [address], [address]. tel:[phone] OFFICE VISIT, EST TELEMEDICINE [facility], [address] [place] [address], [id number] , [place] tel:[phone] [facility] Back Pain (chief complaint) Radiculopathy, lumbar regionSpinal stenosis, lumbar regionSacroilii tisMyalgia, other siteLong term (current) use of opiate analgesic Dec-0 2- 1 Kelsey Arrington. [address] [place] [address], [id number], [place]. tel:[phone] Referring Provider: Miles Jiménez, [address] [place] [address], [address]. tel:[phone] OFFICE VISIT, EST TELEMEDICINE [facility], [address] [place] [address], [id number] , [place] tel:[phone] [facility] Back Pain (chief complaint) Radiculopathy, lumbar regionSpinal stenosis, lumbar regionSacroilii tisMyalgia, other siteLong term (current) use of opiate analgesic Nov-0 3-202 1 Kelsey Arrington. [address] [place] [address], [id number], [place]. tel:[phone] OFFICE VISIT, EST TELEMEDICINE [facility], [address] [place] [address], [id number] , [place] tel:[phone] [facility] Back Pain (chief complaint) Myalgia, other siteSacroiliiti sRadiculopathy, lumbar regionSpinal stenosis, lumbar regionLong term (current) use of opiate analgesic Oct-0 4-202 1 Cole Murphy. [address] [place] [address], [id number], [place]. tel:[phone] Referring Provider: Miles Jiménez, [address] [place] [address], [address]. tel:[phone] [facility], [address] [place] [address], [id number] , [place] tel:[phone] [facility] Myalgia, other site Sep-1 0- 1 Cole Murphy. [address] [place] [address] [address], [place], [id number], [place]. tel:[phone] Referring Provider: Miles Jiménez, [address] [place] [address], [address]. tel:[phone] OFFICE VISIT, EST TELEMEDICINE [facility], [address] [place] [address], [id number] , [place] [phone] [facility] Back Pain (chief complaint) SacroiliitisRad iculopathy, lumbar regionSpinal stenosis, lumbar regionLong term (current) use of opiate analgesicMyalgi a, other site Sep-0 3 1 Cole Murphy. [address] [place] [address] [address], [place], [id number], [place]. tel:[phone] Referring Provider: Miles Jiménez, [address] [place] [address], [address]. tel:[phone] OFFICE VISIT, EST TELEMEDICINE [facility], [address] [place] [address], [id number] , [place] [phone] [facility] Back Pain (chief complaint) SacroiliitisRad iculopathy, lumbar regionSpinal stenosis, lumbar regionLong term (current) use of opiate analgesicMyalgi a, other site Aug-0 1 Cole Murphy. [address] [place] [address] [address], [place], [id number], [place]. tel:[phone] Referring Provider: Miles Jiménez, [address] [place] [address], [address]. tel:[phone] OFFICE VISIT, EST TELEMEDICINE [facility], [address] [place] [address], [id number] , [place] tel:[phone] [facility] Back Pain (chief complaint) SacroiliitisRad iculopathy, lumbar regionSpinal stenosis, lumbar regionLong term (current) use of opiate analgesicMyalgi a, other site 1 Kelsey Arrington. [address] [facility] [address], [place], [id number], [place]. [phone] Referring Provider: Miles Jiménez, [address] [place] [address], [address]. [phone] OFFICE VISIT, EST TELEMEDICINE [facility], [address] [place] [address], [id number] , [place] tel:[phone] [facility] Back Pain (chief complaint) SacroiliitisRad iculopathy, lumbar regionSpinal stenosis, lumbar regionLong term (current) use of opiate analgesicMyalgi a, other site 1 Kelsey Arrington. [address] [place] [address] [address], [place], [id number], [place]. [phone] Referring Provider: Miles Jiménez, [address] [place] [address], [address]. [phone] OFFICE VISIT, EST TELEMEDICINE [facility], [address] [place] [address], [id number] , [place] tel:[phone] [facility] Back Pain (chief complaint) SacroiliitisRad iculopathy, lumbar regionSpinal stenosis, lumbar regionLong term (current) use of opiate analgesicMyalgi a, other site 1 Kelsey Arrington. [address] [place] [address] [address], [place], [id number], [place]. tel:[phone] Referring Provider: Miles Jiménez, [address] [place] [address], [address]. tel:[phone] [facility], [address] [place] [address], [id number] , [place] tel:[phone] [facility] Sacroiliitis Apr-2 1 Eleazar Jackson. [address] [place] [address], [id number], [place]. tel:[phone] Referring Provider: Miles Jiménez, [address] [place] [address], [address]. tel:[phone] OFFICE VISIT, [facility] TELEMEDICINE [facility], [address] [place] [address], [id number] , [place] tel:[phone] [facility] Back Pain (chief complaint) Radiculopathy, lumbar regionSpinal stenosis, lumbar regionLong term (current) use of opiate analgesicMyalgi a, other siteSacroiliiti s 0 1 Kelsey Arrington. [address] [place] [address] [address], [place], [id number], [place]. tel:[phone] Referring Provider: Miles Jiménez, [address] [place] [address], [address]. tel:[phone] OFFICE VISIT, EST [facility], [address] [place] [address], [id number] , [place] tel:[phone] [facility] Back Pain (chief complaint) Radiculopathy, lumbar regionSpinal stenosis, lumbar regionLong term (current) use of opiate analgesicMyalgi a, other siteSacroiliiti s 1 Kelsey Arrington. [address] [place] [address] [address], [place], [id number], [place]. tel:[phone] Referring Provider: Miles Jiménez, [address] [place] [address], [address]. tel:[phone] OFFICE VISIT, EST TELEMEDICINE [facility], [address] [place] [address], [id number] , [place] tel:[phone] [facility] Back Pain (chief complaint) Radiculopathy, lumbar regionSpinal stenosis, lumbar regionLong term (current) use of opiate analgesicSacroi liitisMyalgia, other site Fe0 1 Kelsey Arrington. [address] [place] [address] [address], [place], [id number], [place]. tel:[phone] Referring Provider: Miles Jiménez, [address] [place] [address], [address]. [phone] [facility], [address] [place] [address], [id number] , [place] tel:[phone] [facility] No Information 1 Kelsey Arrington. [address] [place] [address] [address] [place], [id number], [place]. [phone] OFFICE/OUTPAT IENT VISIT, [facility], [address] [place] [address], [id number] , [place] tel:[phone] [facility] Back Pain (chief complaint) Radiculopathy, lumbar regionSpinal stenosis, lumbar regionLong term (current) use of opiate analgesicSacroi liitisMyalgia, other site 1 Cole Murphy. [address] [place] [address], [id number], [place]. [phone] Referring Provider: Miles Jiménez, [address] [place] [address], [address]. [phone] OFFICE VISIT, [facility] TELEMEDICINE [facility], [address] [place] [address], [id number] , [place] tel:[phone] [facility] Back Pain (chief complaint) Radiculopathy, lumbar regionSpinal stenosis, lumbar regionLong term (current) use of opiate analgesicSacroi liitisMyalgia, other site 0 Cole Murphy. [address] [place] [address] [address], [id number], [place]. tel:[phone] Referring Provider: Miles Jiménez, [address] [place] [address], [id number]. tel:[phone] [facility], [address] [place] [address], [id number] , [place] [phone] [facility] Radiculopathy, lumbar region 0 Reddy Wheeler. [address] [place] [address], [id number], [place]. tel:[phone] Referring Provider: Miles Jiménez, [address] [place] [address], [address]. tel:[phone] OFFICE VISIT, [facility], [address] [place] [address], [id number] , [place] tel:[phone] [facility] Back Pain (chief complaint) Radiculopathy, lumbar regionSpinal stenosis, lumbar regionLong term (current) use of opiate analgesicSacroi liitisMyalgia, other site 0 Cole Murphy. [address] [place] [address] [address], [id number], [place]. tel:[phone] Referring Provider: Miles Jiménez, [address] [place] [address], [address]. tel:[phone] OFFICE VISIT, [facility], [address] [place] [address], [id number] , [place] tel:[phone] [facility] Back Pain (chief complaint) Radiculopathy, lumbar regionSpinal stenosis, lumbar regionLong term (current) use of opiate analgesicSacroi liitisMyalgia, other site 0 Cole Murphy. [address] [place] [address] [address], [id number], [place]. tel:[phone] Referring Provider: Miles Jiménez, [address] [place] [address], [address]. tel:[phone] OFFICE VISIT, EST [facility], [address] [place] [address], [id number] , [place] tel:[phone] [facility] Back Pain (chief complaint) Radiculopathy, lumbar regionSpinal stenosis, lumbar regionLong term (current) use of opiate analgesicSacroi liitisMyalgia, other site 0 Cole Murphy. [facility] [address], [place], [id number], [place]. tel:[phone] Referring Provider: Miles Jiménez, [address] [place] [address], [id number]. tel:[phone] OFFICE/OUTPAT IENT VISIT, [facility], [address] [place] [address], [id number] , [place] [phone] [facility] Back Pain (chief complaint) Radiculopathy, lumbar regionSpinal stenosis, lumbar regionLong term (current) use of opiate analgesicSacroi liitisMyalgia, other site 0 Cole Murphy. [address] [place] [address] [address], [id number], [place]. tel:[phone] Referring Provider: Miles Jiménez, [address] [place] [address], [address]. tel:[phone] [facility], [address] [place] [address], [id number] , [place] tel:[phone] [facility] Radiculopathy, lumbar region 0 Nava Campos. [address] [place] [address], [id number], [place]. tel:[phone] Referring Provider: Miles Jiménez, [address] [place] [address], [address]. tel:[phone] OFFICE VISIT, EST TELEMEDICINE [facility], [address] [place] [address], [id number] , [place] [phone] [facility] Back Pain (chief complaint) Radiculopathy, lumbar regionSpinal stenosis, lumbar regionLong term (current) use of opiate analgesicSacroi liitis 0 Colehina Arrington. [address] [place] [address] [address], [place], [place], [id number], [place]. tel:[phone] Referring Provider: Miles Jiménez, [address] [place] [address], [address]. tel:[phone] [facility], [address] [place] [address], [id number] , [place] tel:[phone] [facility] Radiculopathy, lumbar region Jul- 0 Kelsey Arrington. [address] [place] [address] [address], [id number], [place]. tel:[phone] OFFICE VISIT, EST TELEMEDICINE [facility], [address] [place] [address], [id number] , [place] [phone] [facility] Back Pain (chief complaint) Radiculopathy, lumbar regionSpinal stenosis, lumbar regionLong term (current) use of opiate analgesicSacroi liitis Jul- 0 Kelsey Arrington. [address] [facility] [address], [id number], [place]. tel:[phone] Referring Provider: Miles Jiménez, [address] [place] [address], [address]. tel:[phone] OFFICE VISIT, EST TELEMEDICINE [facility], [address] [place] [address], [id number] , [place] tel:[phone] [facility] Back Pain (chief complaint) Low back painChronic pain syndromeRadicul opathy, lumbar regionSpinal stenosis, lumbar regionLong term (current) use of opiate analgesic 0 Colehina Arrington. [address] [place] [address] [address], [id number], [place]. tel:[phone] [facility], [address] [place] [address], [id number] , [place] [phone] [facility] Low back pain 0 Live Aquino. [address] [place] [address], [id number], [place]. tel:[phone] Referring Provider: Miles Jiménez, [address] [place] [address], [address]. tel:[phone] OFFICE VISIT, EST TELEMEDICINE [facility], [address] [place] [address], [id number] , [place] tel:[phone] [facility] Back Pain (chief complaint) Chronic pain syndromeRadicul opathy, lumbar regionSpinal stenosis, lumbar regionLong term (current) use of opiate analgesic Apr-1 0-202 0 Colehina Arrington. [address] [facility] [address], [id number], [place]. tel:[phone] Referring Provider: Miles Jiménez, [address] [place] [address], [address]. tel:[phone] OFFICE VISIT, [facility], [address] [place] [address], [id number] , [place] tel:[phone] [facility] Back Pain (chief complaint) Chronic pain syndromeRadicul opathy, lumbar regionSpinal stenosis, lumbar regionLong term (current) use of opiate analgesicLow back pain Apr-1 0 Colehina Arrington. [address] [facility] [address], [id number], [place]. tel:[phone] Referring Provider: Miles Jiménez, [address] [place] [address], [address]. tel:[phone] OFFICE/OUTPAT IENT VISIT, [facility], [address] [place] [address], [id number] , [place] tel:[phone] [facility] Back Pain (chief complaint) Chronic pain syndromeOther intervertebral disc degeneration, lumbar regionRadiculop athy, lumbar regionSpinal stenosis, lumbar regionEncounter for therapeutic drug level monitoringLong term (current) use of opiate analgesic Mar-0 6- 0 Kelsey Arrington. [address] [facility] 11 [facility] [address], [id number], [place]. tel:[phone] Referring Provider: Abdifatah Henry, [facility] [address] [place], [address]. tel:[phone] Family History Family Member Type Diagnosis Age At Onset No Information Payers Payer name Insurance type Covered democrat ID Authordereka richmond(s) Ariel Cross Ariel Garnica DALE [id number] Social History Type Description Quantity Date Captured Comments Alcohol Use Details No Caffeine Use Details Unknown Tobacco Use Status Occasional cigarette smoker Smoking Status Light tobacco smoker Sex Female Chief Complaint And Reason For Visit From encounter dated '05/15/2022 10:32'. low back pain (chief complaint). Description: Severity level is 3. Duration: chronic. The problem is stable. It occurs persistently. Location of pain is lower back. Symptoms are aggravated by daily activities and overuse. Symptoms are relieved by pain meds/drugs and rest. Reason For Referral Reason For Referral No Information Plan Of Treatment Date Type Action Status Goal STRADDLE BUGGY OPERATOR Scanned. Due on due Goal Creatinine. Due on due Goal ALT (SGPT). Due on due Goal Order Annual PT. Due on due Goal CIGARETTE AND FILTER CHIEF INSPECTOR Paperwork. Due on due Goal OARS. Due on due Goal UDT. Due on due Goal Update Social History. Due o n due Goal AST (SGOT). Due on due Goal PHQ-9. Due on du e Goal Lipid panel. Due on due Goal CT-Colonography. Due on due Goal Hepatitis C screening. Due o n due Goal Review Allergy List. Due on due Goal Medication Recon ciliation. Due on due Goal Weight. Due on d ue Goal HPV. Due on due Goal FIT. Due on due Goal Unhealthy drug u se screening. Due on due Goal Zoster vaccine (1st). Due on due Goal Height. Due on d ue Goal Tobacco Use. Due on due Goal FIT-DNA. Due on due Goal Unhealthy drug u se screening. Due on due Goal Lipid panel. Due on due Goal CT-Colonography. Due on due Goal PHQ-9. Due on du e Goal Zoster vaccine (). Due on due Goal Height. Due on d ue Goal Update Social History. Due o n due Goal Medication Recon ciliation. Due on due Goal FIT. Due on due Goal Creatinine. Due on due Goal UDT. Due on due Goal STRADDLE BUGGY OPERATOR Scanned. Due on due Goal ALT (SGPT). Due on due Goal AST (SGOT). Due on due Goal Order Annual PT. Due on due Goal OARS. Due on due Goal CIGARETTE AND FILTER CHIEF INSPECTOR Paperwork. Due on due Goal Review Allergy List. Due on due Goal FIT-DNA. Due on due Goal Weight. Due on d ue Goal HPV. Due on due Goal Tobacco Use. Due on due Goal Hepatitis C screening. Due o n due Goal STRADDLE BUGGY OPERATOR Scanned. Due on due Goal AST (SGOT). Due on due Goal UDT. Due on due Goal OARS. Due on due Goal CIGARETTE AND FILTER CHIEF INSPECTOR Paperwork. Due on due Goal Creatinine. Due on due Goal Medication Recon ciliation. Due on due Goal Review Allergy List. Due on due Goal PHQ-9. Due on du e Goal FIT. Due on due Goal FIT-DNA. Due on due Goal Hepatitis C screening. Due o n due Goal Tobacco Use. Due on due Goal Weight. Due on d ue Goal Order Annual PT. Due on due Goal ALT (SGPT). Due on due Goal CT-Colonography. Due on due Goal HPV. Due on due Goal Update Social History. Due o n due Goal Zoster vaccine (1st). Due on due Goal Lipid panel. Due on due Goal Unhealthy drug u se screening. Due on due Goal Height. Due on d ue Goal Creatinine. Due on due Goal Zoster vaccine (1st). Due on due Goal Medication Recon ciliation. Due on due Goal Order Annual PT. Due on due Goal UDT. Due on due Goal Lipid panel. Due on 023 due Goal PHQ-9. Due on du e Goal FIT. Due on due Goal HPV. Due on due Goal Height. Due on d ue Goal Weight. Due on d ue Goal CT-Colonography. Due on due Goal STRADDLE BUGGY OPERATOR Scanned. Due on 023 due Goal OARS. Due on due Goal Update Social History. Due o n due Goal Review Allergy List. Due on due Goal Unhealthy drug u se screening. Due on due Goal Tobacco Use. Due on 023 due Goal FIT-DNA. Due on due Goal Hepatitis C screening. Due o n due Goal ALT (SGPT). Due on due Goal AST (SGOT). Due on due Goal CIGARETTE AND FILTER CHIEF INSPECTOR Paperwork. Due on due Goal Lipid panel. Due on due Goal PHQ-9. Due on du e Goal Medication Recon ciliation. Due on due Goal Unhealthy drug u se screening. Due on due Goal CT-Colonography. Due on due Goal FIT. Due on due Goal CIGARETTE AND FILTER CHIEF INSPECTOR Paperwork. Due on due Goal Creatinine. Due on due Goal UDT. Due on due Goal STRADDLE BUGGY OPERATOR Scanned. Due on due Goal Order Annual PT. Due on due Goal AST (SGOT). Due on due Goal ALT (SGPT). Due on due Goal OARS. Due on due Goal Hepatitis C screening. Due o n due Goal Tobacco Use. Due on due Goal Weight. Due on d ue Goal Review Allergy List. Due on due Goal Update Social History. Due o n due Goal FIT-DNA. Due on due Goal Zoster vaccine (1st). Due on due Goal HPV. Due on due Goal Height. Due on d ue Goal OARS. Due on due Goal ALT (SGPT). Due on due Goal Unhealthy drug u se screening. Due on due Goal Zoster vaccine (1st). Due on due Goal AST (SGOT). Due on due Goal Order Annual PT. Due on due Goal STRADDLE BUGGY OPERATOR Scanned. Due on due Goal UDT. Due on due Goal Creatinine. Due on due Goal CIGARETTE AND FILTER CHIEF INSPECTOR Paperwork. Due on due Goal Weight. Due on d ue Goal FIT-DNA. Due on due Goal Lipid panel. Due on due Goal PHQ-9. Due on du e Goal Tobacco Use. Due on due Goal Review Allergy List. Due on due Goal HPV. Due on due Goal Hepatitis C screening. Due o n due Goal CT-Colonography. Due on due Goal Height. Due on d ue Goal Update Social History. Due o n due Goal FIT. Due on due Goal Medication Recon ciliation. Due on due Goal Hepatitis C screening. Due o n due Goal HPV. Due on due Goal Height. Due on d ue Goal Zoster vaccine (1st). Due on due Goal CT-Colonography. Due on due Goal PHQ-9. Due on du e Goal Tobacco Use. Due on due Goal Medication Recon ciliation. Due on due Goal Review Allergy List. Due on due Goal FIT-DNA. Due on due Goal FIT. Due on due Goal Unhealthy drug u se screening. Due on due Goal Lipid panel. Due on due Goal AST (SGOT). Due on due Goal STRADDLE BUGGY OPERATOR Scanned. Due on due Goal UDT. Due on due Goal Order Annual PT. Due on due Goal OARS. Due on due Goal Creatinine. Due on due Goal ALT (SGPT). Due on due Goal CIGARETTE AND FILTER CHIEF INSPECTOR Paperwork. Due on due Goal Weight. Due on d ue Goal Update Social History. Due o n due Goal Review Allergy List. Due on due Goal Tobacco Use. Due on due Goal Hepatitis C screening. Due o n due Goal CT-Colonography. Due on due Goal STRADDLE BUGGY OPERATOR Scanned. Due on due Goal UDT. Due on due Goal FIT-DNA. Due on due Goal Weight. Due on d ue Goal FIT. Due on due Goal HPV. Due on due Goal Lipid panel. Due on due Goal Update Social History. Due o n due Goal Creatinine. Due on due Goal CIGARETTE AND FILTER CHIEF INSPECTOR Paperwork. Due on due Goal ALT (SGPT). Due on due Goal Order Annual PT. Due on due Goal Zoster vaccine (1st). Due on due Goal PHQ-9. Due on du e Goal OARS. Due on due Goal AST (SGOT). Due on due Goal Height. Due on d ue Goal Unhealthy drug u se screening. Due on due Goal Medication Recon ciliation. Due on due Goal AST (SGOT). Due on due Goal Creatinine. Due on due Goal UDT. Due on due Goal Unhealthy drug u se screening. Due on due Goal Hepatitis C screening. Due o n due Goal Tobacco Use. Due on due Goal FIT. Due on due Goal Update Social History. Due o n due Goal PHQ-9. Due on du e Goal Medication Recon ciliation. Due on due Goal ALT (SGPT). Due on due Goal Order Annual PT. Due on due Goal CIGARETTE AND FILTER CHIEF INSPECTOR Paperwork. Due on due Goal STRADDLE BUGGY OPERATOR Scanned. Due on due Goal OARS. Due on due Goal HPV. Due on due Goal Height. Due on d ue Goal Zoster vaccine (1st). Due on due Goal Review Allergy List. Due on due Goal Lipid panel. Due on due Goal FIT-DNA. Due on due Goal CT-Colonography. Due on due Goal Weight. Due on d ue Goal STRADDLE BUGGY OPERATOR Scanned. Due on due Goal Order Annual PT. Due on due Goal AST (SGOT). Due on due Goal CIGARETTE AND FILTER CHIEF INSPECTOR Paperwork. Due on due Goal Creatinine. Due on due Goal ALT (SGPT). Due on due Goal UDT. Due on due Goal OARS. Due on due Goal FIT-DNA. Due on due Goal Lipid panel. Due on due Goal Unhealthy drug u se screening. Due on due Goal HPV. Due on due Goal Hepatitis C screening. Due o n due Goal Zoster vaccine (1st). Due on due Goal Medication Recon ciliation. Due on due Goal PHQ-9. Due on du e Goal Update Social History. Due o n due Goal CT-Colonography. Due on due Goal Review Allergy List. Due on due Goal Tobacco Use. Due on due Goal Height. Due on d ue Goal FIT. Due on due Goal Weight. Due on d ue Goal STRADDLE BUGGY OPERATOR Scanned. Due on due Goal AST (SGOT). Due on due Goal Weight. Due on d ue Goal Medication Recon ciliation. Due on due Goal FIT. Due on due Goal PHQ-9. Due on du e Goal Unhealthy drug u se screening. Due on due Goal Review Allergy List. Due on due Goal Lipid panel. Due on due Goal FIT-DNA. Due on due Goal Update Social History. Due o n due Goal Tobacco Use. Due on due Goal Zoster vaccine (1st). Due on due Goal HPV. Due on due Goal Hepatitis C screening. Due o n due Goal Height. Due on d ue Goal CT-Colonography. Due on due Goal OARS. Due on due Goal ALT (SGPT). Due on due Goal CIGARETTE AND FILTER CHIEF INSPECTOR Paperwork. Due on due Goal Order Annual PT. Due on due Goal UDT. Due on due Goal Creatinine. Due on due Goal OARS. Due on due Goal AST (SGOT). Due on due Goal UDT. Due on due Goal ALT (SGPT). Due on due Goal Creatinine. Due on due Goal STRADDLE BUGGY OPERATOR Scanned. Due on due Goal Order Annual PT. Due on due Goal CIGARETTE AND FILTER CHIEF INSPECTOR Paperwork. Due on due Goal Review Allergy List. Due on due Goal Unhealthy drug u se screening. Due on due Goal Medication Recon ciliation. Due on due Goal Tobacco Use. Due on due Goal HPV. Due on due Goal PHQ-9. Due on du e Goal Height. Due on d ue Goal Weight. Due on d ue Goal Hepatitis C screening. Due o n due Goal Zoster vaccine (). Due on due Goal Lipid panel. Due on due Goal FIT. Due on due Goal FIT-DNA. Due on due Goal CT-Colonography. Due on due Goal Update Social History. Due o n due Goal AST (SGOT). Due on due Goal PHQ-9. Due on du e Goal FIT-DNA. Due on due Goal Height. Due on d ue Goal Weight. Due on d ue Goal CIGARETTE AND FILTER CHIEF INSPECTOR Paperwork. Due on due Goal Order Annual PT. Due on due Goal OARS. Due on due Goal STRADDLE BUGGY OPERATOR Scanned. Due on due Goal UDT. Due on due Goal Creatinine. Due on due Goal ALT (SGPT). Due on due Goal Zoster vaccine (). Due on due Goal Unhealthy drug u se screening. Due on due Goal Lipid panel. Due on due Goal CT-Colonography. Due on due Goal FIT. Due on due Goal HPV. Due on due Goal Review Allergy List. Due on due Goal Update Social History. Due o n due Goal Tobacco Use. Due on 022 due Goal Medication Recon ciliation. Due on due Goal Hepatitis C screening. Due o n due Goal Hepatitis C screening. Due o n due Goal FIT-DNA. Due on due Goal HPV. Due on due Goal Zoster vaccine (1st). Due on due Goal AST (SGOT). Due on due Goal Order Annual PT. Due on due Goal STRADDLE BUGGY OPERATOR Scanned. Due on 022 due Goal ALT (SGPT). Due on due Goal Creatinine. Due on due Goal UDT. Due on due Goal CIGARETTE AND FILTER CHIEF INSPECTOR Paperwork. Due on due Goal OARS. Due on due Goal Update Social History. Due o n due Goal Review Allergy List. Due on due Goal Unhealthy drug u se screening. Due on due Goal FIT. Due on due Goal Height. Due on d ue Goal Lipid panel. Due on due Goal Weight. Due on d ue Goal PHQ-9. Due on du e Goal CT-Colonography. Due on due Goal Medication Recon ciliation. Due on due Goal Tobacco Use. Due on due Goal CIGARETTE AND FILTER CHIEF INSPECTOR Paperwork. Due on due Goal Hepatitis C screening. Due o n due Goal Weight. Due on d ue Goal Lipid panel. Due on due Goal Update Social History. Due o n due Goal Review Allergy List. Due on due Goal Creatinine. Due on due Goal STRADDLE BUGGY OPERATOR Scanned. Due on due Goal UDT. Due on due Goal Order Annual PT. Due on due Goal ALT (SGPT). Due on due Goal AST (SGOT). Due on due Goal OARS. Due on due Goal CT-Colonography. Due on due Goal Zoster vaccine (1st). Due on due Goal Unhealthy drug u se screening. Due on due Goal FIT-DNA. Due on due Goal PHQ-9. Due on du e Goal Tobacco Use. Due on due Goal Height. Due on d ue Goal HPV. Due on due Goal FIT. Due on due Goal Medication Recon ciliation. Due on due Goal Creatinine. Due on due Goal CIGARETTE AND FILTER CHIEF INSPECTOR Paperwork. Due on due Goal STRADDLE BUGGY OPERATOR Scanned. Due on due Goal Order Annual PT. Due on due Goal OARS. Due on due Goal AST (SGOT). Due on due Goal ALT (SGPT). Due on due Goal UDT. Due on due Goal Update Social History. Due o n due Goal Tobacco Use. Due on due Goal Medication Recon ciliation. Due on due Goal Weight. Due on d ue Goal Review Allergy List. Due on due Goal Height. Due on d ue Goal PHQ-9. Due on du e Goal Order Annual PT. Due on due Goal Medication Recon ciliation. Due on due Goal Weight. Due on d ue Goal Review Allergy List. Due on due Goal Height. Due on d ue Goal PHQ-9. Due on du e Goal OARS. Due on due Goal AST (SGOT). Due on due Goal ALT (SGPT). Due on due Goal UDT. Due on due Goal Update Social History. Due o n due Goal Tobacco Use. Due on due Goal Creatinine. Due on due Goal CIGARETTE AND FILTER CHIEF INSPECTOR Paperwork. Due on due Goal STRADDLE BUGGY OPERATOR Scanned. Due on due Goal ALT (SGPT). Due on due Goal UDT. Due on due Goal Update Social History. Due o n due Goal Tobacco Use. Due on due Goal Medication Recon ciliation. Due on due Goal Weight. Due on d ue Goal Review Allergy List. Due on due Goal Height. Due on d ue Goal PHQ-9. Due on du e Goal Creatinine. Due on due Goal CIGARETTE AND FILTER CHIEF INSPECTOR Paperwork. Due on due Goal STRADDLE BUGGY OPERATOR Scanned. Due on due Goal Order Annual PT. Due on due Goal OARS. Due on due Goal AST (SGOT). Due on due Goal ALT (SGPT). Due on due Goal UDT. Due on due Goal Update Social History. Due o n due Goal Tobacco Use. Due on due Goal Medication Recon ciliation. Due on due Goal Weight. Due on d ue Goal Review Allergy List. Due on due Goal Height. Due on d ue Goal PHQ-9. Due on du e Goal Creatinine. Due on due Goal CIGARETTE AND FILTER CHIEF INSPECTOR Paperwork. Due on due Goal STRADDLE BUGGY OPERATOR Scanned. Due on due Goal Order Annual PT. Due on due Goal OARS. Due on due Goal AST (SGOT). Due on due Goal Creatinine. Due on due Goal CIGARETTE AND FILTER CHIEF INSPECTOR Paperwork. Due on due Goal STRADDLE BUGGY OPERATOR Scanned. Due on due Goal Order Annual PT. Due on due Goal OARS. Due on due Goal AST (SGOT). Due on due Goal ALT (SGPT). Due on due Goal UDT. Due on due Goal Update Social History. Due o n due Goal Tobacco Use. Due on due Goal Medication Recon ciliation. Due on due Goal Weight. Due on d ue Goal Review Allergy List. Due on due Goal Height. Due on d ue Goal PHQ-9. Due on du e Goal ALT (SGPT). Due on due Goal UDT. Due on due Goal Update Social History. Due o n due Goal Tobacco Use. Due on due Goal Medication Recon ciliation. Due on due Goal Weight. Due on d ue Goal Review Allergy List. Due on due Goal Height. Due on d ue Goal PHQ-9. Due on du e Goal OARS. Due on due Goal AST (SGOT). Due on due Goal Creatinine. Due on due Goal CIGARETTE AND FILTER CHIEF INSPECTOR Paperwork. Due on due Goal STRADDLE BUGGY OPERATOR Scanned. Due on due Goal Order Annual PT. Due on due Goal Creatinine. Due on due Goal CIGARETTE AND FILTER CHIEF INSPECTOR Paperwork. Due on due Goal STRADDLE BUGGY OPERATOR Scanned. Due on due Goal Order Annual PT. Due on due Goal OARS. Due on due Goal AST (SGOT). Due on due Goal ALT (SGPT). Due on due Goal UDT. Due on due Goal Update Social History. Due o n due Goal Tobacco Use. Due on due Goal Medication Recon ciliation. Due on due Goal Weight. Due on d ue Goal Review Allergy List. Due on due Goal Height. Due on d ue Goal PHQ-9. Due on du e Goal AST (SGOT). Due on due Goal ALT (SGPT). Due on due Goal UDT. Due on due Goal Update Social History. Due o n due Goal Tobacco Use. Due on due Goal Medication Recon ciliation. Due on due Goal Weight. Due on d ue Goal Review Allergy List. Due on due Goal Height. Due on d ue Goal PHQ-9. Due on du e Goal OARS. Due on due Goal Order Annual PT. Due on due Goal STRADDLE BUGGY OPERATOR Scanned. Due on due Goal CIGARETTE AND FILTER CHIEF INSPECTOR Paperwork. Due on due Goal Creatinine. Due on due Goal Order Annual PT. Due on due Goal OARS. Due on due Goal AST (SGOT). Due on due Goal ALT (SGPT). Due on due Goal UDT. Due on due Goal Update Social History. Due o n due Goal Tobacco Use. Due on due Goal Medication Recon ciliation. Due on due Goal Weight. Due on d ue Goal Creatinine. Due on due Goal CIGARETTE AND FILTER CHIEF INSPECTOR Paperwork. Due on due Goal STRADDLE BUGGY OPERATOR Scanned. Due on due Goal Review Allergy List. Due on due Goal Height. Due on d ue Goal PHQ-9. Due on du e Goal ALT (SGPT). Due on due Goal UDT. Due on due Goal Update Social History. Due o n due Goal Tobacco Use. Due on due Goal Medication Recon ciliation. Due on due Goal Weight. Due on d ue Goal Review Allergy List. Due on due Goal Height. Due on d ue Goal PHQ-9. Due on du e Goal Order Annual PT. Due on due Goal OARS. Due on due Goal AST (SGOT). Due on due Goal Creatinine. Due on due Goal CIGARETTE AND FILTER CHIEF INSPECTOR Paperwork. Due on due Goal STRADDLE BUGGY OPERATOR Scanned. Due on due Goal ALT (SGPT). Due on due Goal UDT. Due on due Goal Update Social History. Due o n due Goal Tobacco Use. Due on due Goal Medication Recon ciliation. Due on due Goal Weight. Due on d ue Goal Review Allergy List. Due on due Goal Height. Due on d ue Goal PHQ-9. Due on du e Goal Creatinine. Due on due Goal CIGARETTE AND FILTER CHIEF INSPECTOR Paperwork. Due on due Goal STRADDLE BUGGY OPERATOR Scanned. Due on due Goal Order Annual PT. Due on due Goal OARS. Due on due Goal AST (SGOT). Due on due Goal Creatinine. Due on due Goal CIGARETTE AND FILTER CHIEF INSPECTOR Paperwork. Due on due Goal STRADDLE BUGGY OPERATOR Scanned. Due on due Goal Order Annual PT. Due on due Goal OARS. Due on due Goal AST (SGOT). Due on due Goal ALT (SGPT). Due on due Goal UDT. Due on due Goal Update Social History. Due o n due Goal Tobacco Use. Due on due Goal Medication Recon ciliation. Due on due Goal Weight. Due on d ue Goal Review Allergy List. Due on due Goal Height. Due on d ue Goal PHQ-9. Due on du e Goal PHQ-9. Due on du e Goal Height. Due on d ue Goal Review Allergy List. Due on due Goal Weight. Due on d ue Goal Medication Recon ciliation. Due on due Goal Tobacco Use. Due on due Goal Update Social History. Due o n due Goal UDT. Due on due Goal ALT (SGPT). Due on due Goal AST (SGOT). Due on due Goal OARS. Due on due Goal Order Annual PT. Due on due Goal STRADDLE BUGGY OPERATOR Scanned. Due on due Goal CIGARETTE AND FILTER CHIEF INSPECTOR Paperwork. Due on due Goal Creatinine. Due on due Goal PHQ-9. Due on du e Goal ALT (SGPT). Due on due Goal UDT. Due on due Goal Creatinine. Due on due Goal CIGARETTE AND FILTER CHIEF INSPECTOR Paperwork. Due on due Goal STRADDLE BUGGY OPERATOR Scanned. Due on due Goal Order Annual PT. Due on due Goal OARS. Due on due Goal AST (SGOT). Due on due Goal Update Social History. Due o n due Goal Tobacco Use. Due on due Goal Medication Recon ciliation. Due on due Goal Weight. Due on d ue Goal Review Allergy List. Due on due Goal Height. Due on d ue Appointment Belkis Manjarrez BOOKED Future Order: Lab Order Drug Tara t Def 22+ Classes (G0483), Ordered on: Ordered History Of Present Illness Encounter Date Complaint History Of Prese nt Illness Comments: Belkis i s present here today for follow up and medication refill for ongoing low back pain. States pain has been stable since last OV. S/p repeat LEFT SI joint injections 04/05/[address] Rey which has provided about 70% pain relief. Interested in a repeat injection in the future. States her right SI joint occasional flares, about 3-4 times per years. She would like to hold off on a right sided SI joint injection for now. Reports current medication regimen provides 50-60% pain relief. Denies any side effects with current medication. Medications continue to provide pain relief and allows the patient to do everyday tasks. No other concerns today. low back pain Severity level i s 3. Duration: chronic. The problem is stable. It occurs persistently. Location of pain is lower back. Symptoms are aggravated by daily activities and overuse. Symptoms are relieved by pain meds/drugs and rest. low back pain Severity level i s 5. Duration: chronic. The problem is stable. It occurs persistently. The client describes the pain as an ache. Symptoms are aggravated by ascending stairs, bending, descending stairs, lifting, twisting and housework. Symptoms are relieved by massage, pain meds/drugs, physical therapy, stretching and rest. Comments: Belkis richardson resents for follow up and medication refill. Patient c/o chronic low back pain. Pain has been stable overall since last visit. Denies recent flares or new concerns.S/p repeat LEFT SI joint injections 04/05/[address] Rey. Currently reports greater than 70% pain relief. States she feels the medication soak in more and is gaining more relief.Notes she is currently recovering from bronchitis.Of note, work continues to be busy with travel.Medication provides 60% relief and allows for increased functionality per patient intake. Presents with surplus of prescribed medication. Denies side effects from current medication regimen. No other concerns today. Comments: Belkis richardson resents for a virtual follow up and medication refill. Patient c/o chronic low back pain. Pain has been stable overall since last visit. Repeat LEFT SI joint injections ordered on 01/14/2022. She plans to schedule soon. States she has been busy traveling for work and does not currently have time to complete the injection. Hopes to complete when she comes in for her next follow up.Medication provides 50-60% relief and allows for increased functionality per patient intake. Presents on track with prescribed medication. Denies side effects from current medication regimen. Inquires about a slight increase for when she is traveling. No other concerns today. low back pain Severity level i s 3. Duration: chronic. The problem is stable. It occurs persistently. Location of pain is lower back. low back pain Severity level i s 3. Duration: chronic. The problem is stable. It occurs persistently. Location of pain is lower back. Comments: Belkis richardson resents for a virtual follow up and medication refill. Patient c/o chronic low back pain. Pain has been stable since last visit. Repeat LEFT SI joint injections ordered on 01/14/2022. She plans to schedule soon. Medication provides 50-60% relief and allows for increased functionality per patient intake. Denies side effects from current medication regimen. No other concerns today. low back pain Severity level i s 8. Duration: chronic. The problem is stable. It occurs persistently. The client describes the pain as an ache and sharp. Symptoms are aggravated by ascending stairs, bending, descending stairs, lifting and prolonged positioning. Symptoms are relieved by heat, ice, pain meds/drugs, stretching and changing positions. Comments: Belkis bee s a 56 y/o woman here for follow up consult and medication refill regarding chronic low back pain. S/p SI joint injection 11/16/[address] Blakely provided >75% relief; plans to repeat procedure as needed. Pain has been stable since M[place] and pain level averages 8/10.Reports that she will have to travel to [place] in January for work; notes that she will also have to travel back to [place] for work as well.Current medication regimen of Kiowa 5-325mg provides 50-60% pain relief for increased functionality. Denies side effects from current medication regimen. No other concerns today. low back pain Severity level i s 4. Duration: chronic. The problem is stable. It occurs persistently. Location of pain is lower back. The client describes the pain as an ache. Comments: Belkis bee s here for a virtual follow-up and medication management. States her pain has been stable since her M[place]. Notes her pain has been more bothersome with her recent travel. Continues to find benefit with medication regimen.S/p SI joint injection 11/16/[address] Blakely provided >75% relief, though she still experienced discomfort on her recent long flight.Continues to use her Kiowa sparingly which she notices an appreciable benefit. Denies SE. No other concerns. low back pain Severity level i s 4. Duration: chronic. The problem is stable. It occurs persistently. Location of pain is lower back. The client describes the pain as an ache. Comments: Belkis bee s here for a virtual follow-up and medication management. States her pain has been fluctuating since her M[place]. Notes her pain has been more bothersome with her recent travel. Continues to find benefit with medication regimen. She is hopeful to complete her SI joint injections prior to her 12 hours flight on 11/17. Found mild benefit with TPI at previous OV. Continues to use her Kiowa sparingly which she notices an appreciable benefit. Denies SE. No other concerns. low back pain Severity level i s 8. Duration: chronic. The problem is changing in character. It occurs intermittently. Location of pain is lower back. Pain is radiated to the back. The client describes the pain as burning and diffuse. Symptoms are aggravated by ascending stairs, descending stairs and walking. Symptoms are relieved by pain meds/drugs and rest. Comments: Belkis bee s here for follow-up, medication management and trigger point injections. 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 These have darryl her good relief in the past. Notes that her SI joint relief is still ongoing from injections completed on August 02, 2021 at the [facility]. She is requesting to repeat injections late October as she is nervous for her 10 hour flight for a work related trip to [place]. Continues to use her Kiowa sparingly which she notices an appreciable benefit.Patient is not accompanied today. No other concerns. Comments: Belkis richardson resents for virtual follow-up and medication management. Presents with chronic back pain. She reports that her pain today is stable. Previous TPI's and SI joint injection provided greater than 70% relief for over three months. Continues to report functional improvements with the injections. S/p SI joint injection scheduled 08/01/[address] Bush. Reports significantly less relief than previous injections. Would like to repeat with Dr. Jose next time. States she is feeling tired this morning d/t recently returning from a trip. Reports traveling aggravates her pain. Requests to repeat TPIs next week.She reports greater than 50% relief with her medication regimen. Denies any side effects. Presents on track with prescribed medication. Continues to take her Kiowa sparingly. This helps her maintain her lowest effective dose. Request a refill. Patient is not accompanied today. No other concerns. Back Pain Severity level i s 4. Duration: chronic. The problem is stable. It occurs persistently. The client describes the pain as an ache, numbness and sharp. Symptoms are aggravated by ascending stairs, bending, descending stairs, lifting, prolonged positioning and housework. Symptoms are relieved by heat, ice, pain meds/drugs, stretching and changing positions. Back Pain Severity level i s 4. Duration: chronic. The problem is stable. It occurs persistently. Location of pain is left lower back and left leg. The client describes the pain as an ache and sharp. Symptoms are aggravated by ascending stairs, bending, descending stairs, lifting and prolonged positioning. Symptoms are relieved by heat, ice, pain meds/drugs, stretching and changing positions. Comments: Belkis richardson resents for virtual follow-up and medication management. Presents with chronic back pain. She reports that her pain today is stable. Previous TPI's and SI joint injection provided greater than 70% relief for over three months. She also notices functional improvements with the injections. S/p SI joint injection scheduled 08/01/[address] Bush. Reports significantly less relief than previous injections. Expresses disappointment. Would like to repeat with Dr. Jose next time. Reports she has been more active recently.Of note, she is traveling to [place] soon.She reports greater than 50% relief with her medication regimen. Denies any side effects. Presents on track with prescribed medication. Continues to take her Kiowa sparingly. This helps her maintain her lowest effective dose. Request a refill. Patient is not accompanied today. No other concerns. Comments: Belkis bee s here for follow-up, trigger point injections and medication management. Presents with chronic back pain. She reports that her pain today is stable. Previous TPI's and SI joint injection provided greater than 70% relief for over three months. She also notices functional improvements with the injections. SI joint injection scheduled 08/01/[address] Bush. Reports she is excited for the procedure.She reports greater than 50% relief with her medication regimen. Denies any side effects. Presents on track with prescribed medication. Continues to take her Kiowa sparingly. This helps her maintain her lowest effective dose. This also explains her surplus today. Request a refill. Patient is not accompanied today. No other concerns. Back Pain Severity level i s 4. Duration: chronic. The problem is stable. It occurs persistently. The client describes the pain as an ache, numbness and sharp. Symptoms are aggravated by bending, lifting and prolonged positioning. Symptoms are relieved by heat, ice and stretching. Comments: Belkis i s here for follow-up, trigger point injections and medication management. She reports greater than 50% relief with her medication regimen. Denies any side effects.She reports that her pain today is stable. Previous TPI's and SI joint injection provided greater than 70% relief for over three months. She also notices functional improvements with the injections. SI joint injection pending scheduling; ordered at previous OV.Continues to take her Kiowa sparingly. This helps her maintain her lowest effective dose. This also explains her surplus today. Request a refill. Patient is not accompanied today. No other concerns. Back Pain Severity level i s 4. Duration: chronic. The problem is stable. It occurs persistently. Location of pain is lower back and legs. The client describes the pain as an ache and sharp. Symptoms are aggravated by ascending stairs, bending, descending stairs, lifting and prolonged positioning. Symptoms are relieved by heat, ice, pain meds/drugs, stretching and changing positions. Back Pain Severity level i s 2. Duration: chronic. The problem is fluctuating. It occurs persistently. The patient describes the pain as an ache and sharp. Symptoms are aggravated by bending, lifting and prolonged positioning. Symptoms are relieved by heat, pain meds/drugs, stretching and changing positions. Back Pain (comments) Belkis is her e for follow-up, trigger point injections and medication management.she reports greater than 50% relief with her medication regimen. Denies any side effects.She reports that her pain today is worsening. Note that this is due to recently traveling back from [place] to [place]. She spent the winter in [place]. Her worst complaint is her left side pain. She requests repeat TPI's as well as a repeat left SI joint injection. Previous TPI's and SI joint injection provided greater than 70% relief for over three months. She also notices functional improvements with the injections.Continues to take her Kiowa sparingly. This helps her maintain her lowest effective dose. This also explains her surplus today. Request a refill.Patient is not accompanied today. No other concerns. Back Pain Severity level i s 5. Duration: chronic. The problem is stable. It occurs persistently. Location of pain is lower back, left leg and.The patient describes the pain as an ache and sharp. Symptoms are aggravated by ascending stairs, bending, descending stairs, lifting and prolonged positioning. Symptoms are relieved by heat, ice, pain meds/drugs, stretching and changing positions. Back Pain (comments) Belkis is charla mooney with us today via [employer] Virtual Visit for follow up and medication refill. She is followed for lower back and SI joint pain. Reports overall pain has been stable since last OV. Notes she continues to benefit from Kiowa and requests a refill. Of note, she has been able to enjoy her time in [place]. Reports current medication regimen provides 50-60% pain relief and allows for increased functionality. Denies side effects from current medication regimen. No other concerns today. Back Pain Severity level i s 4. Duration: chronic. The problem is stable. It occurs persistently. Location of pain is lower back.The patient describes the pain as an ache and sharp. Symptoms are aggravated by ascending stairs, bending, descending stairs, lifting and prolonged positioning. Symptoms are relieved by heat, pain meds/drugs, stretching and changing positions. Back Pain (comments) Belkis is charla mooney with us today via [facility] for follow up and medication refill. Low back pain has persisted. Details improved pain following 01/19/21 SI joint injection. States pain has been aggravated d/t prolonged positioning during her car ride to [place]. Pain has slowly been returning to baseline. Notes she continues to benefit from Kiowa and requests a refill. Reports current medication regimen provides 50-60% pain relief and allows for increased functionality. Denies side effects from current medication regimen. No other concerns today. Back Pain (comments) Belkis is charla jesica with us today via [facility] Visit for follow up and medication refill. Low back pain persists this month, but medication does help to some extent. She looks forward to lumbar EVELIN scheduled for later today. Of note, patient plans to travel to [place] for 3 months starting on 02/02. She looks forward to being in the warm weather so she can be more active. She inquires about how to fill her medications while she is in [place]. Reports current medication regimen provides 50-60% pain relief and allows for increased functionality. Denies side effects from current medication regimen. No other concerns today. Back Pain Severity level i s 4. Duration: chronic. The problem is stable. It occurs persistently. Location of pain is lower back and left leg.The patient describes the pain as an ache and sharp. Symptoms are aggravated by bending, lifting and prolonged positioning. Symptoms are relieved by pain meds/drugs, stretching and changing positions. Back Pain (comments) Belkis is charla mooney with us today via [facility] Visit for follow up and medication refill. Low back pain persists this month, but medication does help to some extent. Notes low back pain has been controlled. Pain has been overall stable and denies new chronic pain concerns. Most of today's OV was spent discussing insurance denial of L SI joint injection. Discussed appeal process. Patient plans to go down south in January for 3 months and would like to have to injection before she leaves.Reports current medication regimen provides 50-60% pain relief and allows for increased functionality. Denies side effects from current medication regimen. No other concerns today. Back Pain Severity level i s 4. Duration: chronic. The problem is stable. It occurs persistently. Location of pain is lower back and L leg.The patient describes the pain as an ache, numbness and sharp. Symptoms are aggravated by prolonged positioning. Symptoms are relieved by heat, ice, pain meds/drugs, stretching and changing positions. Back Pain Duration: chroni c. The problem is stable. It occurs persistently. Location of pain is lower back and legs.The patient describes the pain as an ache, burning, numbness and sharp. Symptoms are aggravated by bending, lifting, standing, twisting and walking. Symptoms are relieved by pain meds/drugs and rest. Back Pain (comments) Belkis is charla mooney with us today via [facility] Visit for follow up and medication refill. Low back pain persists this month, but medication does help to some extent. Notes low back pain has been controlled. States the TPIs performed at last OV provided significant relief. Details increased numbness in her legs, but states it is not painful. Patient would like to hold off on an EMG. Of note, patient [place] 3 [place]. Reports current medication regimen provides 50-60% pain relief and allows for increased functionality. Denies side effects from current medication regimen. No other concerns today. Back Pain (comments) Belkis is charla mooney with us today via [facility] Virtual Visit for follow up and medication refill. Low back pain persists this month, but medication does help to some extent. Reports SI joint pain has been flaring again. She plans to come to clinic next week for repeat TPIs. Reports current medication regimen provides 50-60% pain relief and allows for increased functionality. Denies side effects from current medication regimen.No other concerns today. Back Pain Duration: chroni c. The problem is stable. It occurs persistently. Location of pain is lower back.The patient describes the pain as an ache, burning and sharp. Symptoms are aggravated by ascending stairs, bending, descending stairs, lifting, standing, twisting and walking. Symptoms are relieved by pain meds/drugs and rest. Back Pain (comments) Belkis is charla mooney with us today via [facility] Virtual Visit for follow up and medication refill. Low back pain persists this month, but medication does help to some extent. Reports stable SI joint pain with less flare ups since SI joint injection in May.Reports current medication regimen provides 50-60% pain relief and allows for increased functionality. Denies side effects from current medication regimen.No other concerns today. Back Pain Severity level i s 4. Duration: chronic. The problem is stable. It occurs persistently. Location of pain is lower back.The patient describes the pain as an ache and sharp. Symptoms are aggravated by bending, lifting and prolonged positioning. Symptoms are relieved by heat, ice, pain meds/drugs and changing positions. Back Pain (comments) Belkis is her e for follow-up and medication refills. Ongoing back pain persists, tolerable with medication. Pain has been relatively stable with occasional flares. Notes her SI joint pain remains stable since SI joint injection on 06/09/20. The current medication regimen continues to provide significant relief and she requests a refill. Reports current medication regimen provides at least 50% pain relief. Denies side effects from current medication regimen. No other concerns today. Back Pain Duration: chroni c. Symptoms are aggravated by ascending stairs, bending, changing positions, descending stairs, lifting, standing and walking. Symptoms are relieved by heat, ice, lying down, pain meds/drugs and rest. Back Pain Severity level i s 5. Duration: chronic. The problem is stable. It occurs persistently. Location of pain is lower back and legs.The patient describes the pain as an ache and sharp. Symptoms are aggravated by ascending stairs, bending, changing positions, descending stairs, lifting, standing and walking. Symptoms are relieved by heat, ice, lying down, pain meds/drugs and rest. Back Pain (comments) Belkis is her e for follow-up and medication refills. Ongoing low back pain persists, tolerable with medication. Pain has been relatively stable. Notes her Left Leg is bothersome at some times. She is interested in TPIs next month. She requests a refill of her current medication regimen as it allows her to complete her ADLs. Reports current medication regimen provides at least 50% pain relief. Denies side effects from current medication regimen. No other concerns today. Back Pain Severity level i s 7. Duration: chronic. The problem is stable. It occurs persistently. Location of pain is lower back and legs.The patient describes the pain as an ache, burning and sharp. Symptoms are aggravated by ascending stairs, bending, changing positions, descending stairs, lifting, standing and walking. Symptoms are relieved by heat, ice, lying down, pain meds/drugs and rest. Back Pain (comments) Belkis is her e for follow-up and medication refills. She returns with L sided low back pain which has been slightly worse. She just started experiencing relief from L SI joint injection with Dr. Bush. She notes since the injections she has severe burning pain down her left leg. She would like to continue with the current medication regimen as it allows her to complete her ADLs. Reports current medication regimen provides at least 50% pain relief. Denies side effects from current medication regimen. No other concerns today. Back Pain Duration: chroni c. The problem is stable. It occurs persistently. Location of pain is lower back and legs.The patient describes the pain as an ache, burning and sharp. Symptoms are aggravated by ascending stairs, bending, changing positions, lifting, standing, twisting and walking. Symptoms are relieved by heat, ice, lying down, pain meds/drugs and rest. Back Pain (comments) Belkis is her e for virtual follow-up and medication refills. Ongoing low back pain persists, tolerable with medication. Pain today is worsening. States her low back pain is intolerable on most days. The slight increase in her medications has been helpful, however, she knows she is ready for her cortisone injections. Repeat SI joint injections is scheduled for 06/09/[address] Bush. Reports current medication regimen provides >50% pain relief. Denies side effects from current medication regimen. Patient is not accompanied on the virtual visit. No other concerns today. Back Pain (comments) Belkis is her e for follow-up and medication refills. Ongoing low back pain persists, tolerable with medication. Pain has been stable. She notes her low back pain will occasionally radiate down her leg. She inquires about repeating L SI joint injection. She requests a refill of her current medication regimen as it allows her to complete her ADLs. Reports current medication regimen provides at least 50% pain relief. Denies side effects from current medication regimen. No other concerns today. Back Pain Severity level i s 6. Duration: chronic. The problem is stable. It occurs persistently. Location of pain is lower back.The patient describes the pain as an ache, burning and sharp. Symptoms are aggravated by bending, lifting and housework. Symptoms are relieved by heat and changing positions. Back Pain Duration: chroni c. The problem is stable. It occurs persistently. Location of pain is lower back and legs.The patient describes the pain as an ache, burning and sharp. Symptoms are relieved by heat, ice, lying down, pain meds/drugs, rest and changing positions. Back Pain (comments) Belkis is her e for follow-up and medication refills. She presents with low back pain, which is worse on her L side. Pain has been stable. TPIs administered last OV continue to provide significant relief. She will take her medication sparingly depending on her work schedule. Requests a small increase in her medication dose as she is in more pain while at work.Reports current medication regimen provides at least 50% pain relief. Denies side effects from current medication regimen. No other concerns today. Back Pain Duration: chroni c. The problem is stable. It occurs persistently. The patient describes the pain as an ache, burning and sharp. Symptoms are aggravated by ascending stairs, changing positions, descending stairs, lifting and standing. Symptoms are relieved by heat, ice, lying down, pain meds/drugs and rest. Back Pain (comments) Belkis is her e for follow-up and medication refills. Ongoing low back pain persists, tolerable with medication. Pain has been fluctuating Requests repeat TPIs today as they provide significant relief in the past. L5-S1 EVELIN completed on 01/18 continues to provide relief. She would like to continue with the current medication regimen as it allows her to complete her ADLs. Reports current medication regimen provides at least 50% pain relief. Denies side effects from current medication regimen. No other concerns today. Back Pain Severity level i s 4. Duration: chronic. The problem is stable. It occurs persistently. Location of pain is lower back.The patient describes the pain as an ache. Symptoms are aggravated by ascending stairs, bending, descending stairs, lifting, lying/rest, sitting, standing, twisting, walking, housework and prolonged positioning. Symptoms are relieved by heat, ice, lying down, massage, pain meds/drugs, stretching, rest, sitting, chiropractic, standing and walking. Back Pain (comments) Belkis is charla ting with us today via [facility] Virtual Visit for following up and medication refill. Low back pain persists this month but tolerable with medication. She reports significant relief from L5 - S1 EVELIN on 01/19/20. However she continues to have muscle tightness and requests TPI.Reports current medication regimen provides 60-70% pain relief and allows for increased functionality. Denies side effects from current medication regimen.No other concerns today. Back Pain Severity level i s 6. Duration: chronic. The problem is stable. It occurs persistently. Location of pain is lower back.The patient describes the pain as an ache and sharp. Symptoms are aggravated by bending, lifting, running, standing, twisting and walking. Symptoms are relieved by heat, ice, lying down, pain meds/drugs, rest and changing positions. Back Pain (comments) Belkis is her e for follow-up and medication refills. Ongoing back pain persists, tolerable with medication. Pain has been fluctuating. She would like to move forward with an insurance appeal for an LESI as it was recently denied. She would like to continue with the current medication regimen as it allows her to complete her ADLs and work without limitations. Reports current medication regimen provides 50% pain relief. Denies side effects from current medication regimen. No other concerns today. Back Pain Severity level i s 3. Duration: chronic. The problem is stable. It occurs persistently. Location of pain is lower back and left greater than right.The patient describes the pain as an ache, numbness and sharp. Symptoms are aggravated by bending, running, standing, twisting, walking, prolonged positioning and housework. Symptoms are relieved by heat, ice, lying down, pain meds/drugs, rest and changing positions. Back Pain (comments) Belkis is her e for follow-up and medication refills. She presents with low back pain which is worse on the L side. Notes her low back pain will occasionally repeat down L leg. She inquires about repeat LESI as this gave her 50% pain relief in the past. She would like to continue with current medication regimen as it allows her to complete her ADLS and work without limitations.Reports current medication regimen provides 50% pain relief. Denies side effects from current medication regimen. No other concerns today. Back Pain Severity level i s 4. Duration: chronic. The problem is stable. It occurs persistently. Location of pain is lower back, left greater than right and L leg. Symptoms are aggravated by ascending stairs, bending, descending stairs, lifting, lying/rest, sitting, twisting, walking and prolonged positioning. Symptoms are relieved by pain meds/drugs, stretching, rest, sitting and changing positions. Back Pain (comments) Belkis is her e for virtual follow-up and medication refills. She presents with low back pain which is worse on the on L side. Previous SI joint injection was very beneficial. Her pain has remained stable with occasional flares. The current medication regimen allows her to complete her ADLs and work. Of note, she had a recent dental procedure. Reports current medication regimen provides 70% pain relief. Denies side effects from current medication regimen. No other concerns today. Back Pain Duration: chroni c. The problem is stable. It occurs persistently. Location of pain is lower back.The patient describes the pain as an ache and sharp. Symptoms are aggravated by bending, lifting and housework. Symptoms are relieved by pain meds/drugs, stretching, sitting and changing positions. Back Pain (comments) Belkis is her e for follow-up and medication refills. She presents with low back and lower extremity pain. S/p BL L5-S1 EVELIN on 09/05 was more beneficial than previous SI joint injection and is still providing relief. She is interested in TPIs today.Reports current medication regimen provides 75% pain relief. Denies side effects from current medication regimen. No other concerns today. Back Pain (comments) Patient is here for follow-up and medication refills. Patient c/o L lower back pain and occasional L leg and R lower back pain. Her pain is stable and tolerable with medication. She is excited for the BL LESI injection on 09/07.Reports current medication regimen provides >50% pain relief. Denies side effects from current medication regimen. No other concerns today. Back Pain Severity level i s 5. Duration: chronic. The problem is stable. It occurs persistently. Location of pain is lower back, L leg and.The patient describes the pain as an ache and sharp. Symptoms are aggravated by bending, standing, twisting, walking, prolonged positioning and housework. Symptoms are relieved by heat, ice, lying down, pain meds/drugs, stretching, rest, sitting and changing positions. Back Pain (comments) Belkis is her e today for follow up and medication management. Reports >50% relief with their current regimen and denies any side effects.Reports lumbar pain has improved since last month. She attributes this to receiving her routine left SI injection on 07/02/[address] Mancini. These always provide significant relief for approximately 90 days. Notes that she continues to have issues with walking long distances and prolonged standing. States her left side is going out on her. She remains open to all options to help reduce her pain.Patient is not accompanied today and has no other questions or concerns. Back Pain Severity level i s 5. Duration: chronic. The problem is stable. It occurs persistently. Location of pain is lower back. Pain is radiated to the LLE.The patient describes the pain as an ache and sharp. Symptoms are aggravated by bending, lifting and housework. Symptoms are relieved by heat, ice, pain meds/drugs, rest and changing positions. Back Pain Severity level i s 10. Duration: chronic. The problem is worsening. It occurs persistently. Location of pain is lower back. Pain is radiated to the left leg.The patient describes the pain as an ache. Symptoms are aggravated by ascending stairs, bending, descending stairs, lifting, lying/rest, sitting, standing, twisting, walking, prolonged positioning and housework. Symptoms are relieved by lying down, pain meds/drugs, stretching, rest and sitting. Back Pain (comments) Belkis is charla ting with us today via [facility] Virtual Visit for following up and medication refill. Low back and left leg pain persists this month, tolerable with medication. Reports no complications with Left Sacroiliac Joint Injection performed this morning. She will monitor pain levels for residential relief.Reports current medication regimen provides 50% pain relief and allows for increased functionality. Denies side effects from current medication regimen.No other concerns today. Back Pain (comments) Belkis return s for follow up regarding back pain. Prescribed medications offer 60-70% pain relief. Denies SE.Reports her pain continues to worsen without being able to pursue repeat L SI injection. She wishes to schedule this as soon as possible.No further questions or concerns. Back Pain Severity level i s 7. Duration: chronic. The problem is worsening. It occurs persistently. The patient describes the pain as an ache. Symptoms are aggravated by bending, lifting, lying/rest, sitting, standing, twisting, housework and prolonged positioning. Symptoms are relieved by heat, ice, pain meds/drugs, stretching, sitting, changing positions, standing and walking. Back Pain Severity level i s 5. Duration: chronic. The problem is stable. It occurs persistently. Location of pain is lower back. Symptoms are aggravated by ascending stairs, bending, descending stairs, lifting, lying/rest, sitting, standing, twisting, walking and prolonged positioning. Symptoms are relieved by heat, ice, lying down, physical therapy, sitting, changing positions, standing, stretching and walking. Back Pain (comments) Belkis is her e today for a followup after initial consult for persistent back pain. She reports her pain today is stable managed with medications and intermittent SI joint injections. Dr. Henry is requesting [facility] takeover patient's pain management regimen. She would like order placed for L SI joint injection today.Patient is not accompanied today and has no further questions or other concerns. Back Pain (comments) Belkis is her e for an initial consult, referred by Dr. Henry for pain specialist review of patient's current treatment plan. Her pain began gradually several years ago without inciting event or injury. Pain occurs in left low back radiating down her left posterior thigh. 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 She carries a backpack about 50lbs and a suitcase during travel days which exacerbates her symptoms. Underwent PT several times over the years with benefit. Continues home exercises which are helpful. Also receives regular SI joint injections with Dr. Henry with significant relief. For medications, she takes hydrocodone twice daily which allows her to work and partake in ADLS. Back Pain Onset: gradual w ithout injury. Severity level is 6. Duration: chronic. It occurs persistently. Location of pain is lower back and left greater than right. Pain is radiated to the left thigh.The patient describes the pain as an ache and numbness. Symptoms are aggravated by ascending stairs, bending, descending stairs, lifting, lying/rest, sitting, standing and twisting. Symptoms are relieved by heat, ice, lying down, pain meds/drugs, stretching, sitting and walking. Functional Status Date Functional Assessmen t No Information Instructions Date Instruction Additional Infor evan No Information Assessments Type Assessment Date assessment Spinal stenosis, lumbar region M impression Chronic low back rosangela n, stable since last OV. Lumbar MRI report 04/05/2019 from [facility] reviewed and showed:1. L5-S1 advanced disc degeneration with severe left foraminal stenosis.2. L4-5 2mm spondylolisthesis with mild central canal stenosis, facet arthopathy and moderate denerative disc disease.3. L3-4 moderate degenerative disc disease assessment Sacroiliitis impression Chronic bilateral SI joint pain (L>R), stable since last OV. Reports 80% relief. S/p repeat LEFT SI joint injections 04/05/[address] Rey. Currently reports greater than 70% pain relief. assessment Myalgia, other site impression Ongoing muscle spasms. TPIs have been beneficial in the past. assessment Radiculopathy, lumbar region Apr impression Chronic low back rosangela n, stable since last OV. Notes cold weather aggravates her pain. Notes of occasional radiating sx down LLE. Underwent PT in the past and continues home exercises with benefit. Denies recent flares or new concerns.BL L5-S1 TFESI on 01/19/[address] Jose provided more than 50% relief assessment raftsman (current) use of opiat e analgesic impression Patient presents wit h low back and L>R LE pain. Current regimen relieves 60% of the pain, does not cause significant side effects, and increases the patient's daily activity level. Patient is currently prescribed 15 MME per day. Patient has been managing medications appropriately, and is not confused or oversedated during our office visit. Most recent UDT was appropriate. Appropriate to continue with opioid therapy assessment Chronic pain syndrome impression This is my first [facility] luation of this patient, whose care is routinely managed by my colleague Jason SOLANO. Previous clinic notes reviewed.Belkis is a 56yo female that presents to the clinic for chronic low back and bilateral SI joint pain. Mental Status Date Cognitive Assessment Orientation - [place] ed to time, place, person, situation. Patient Care Teams Name Effective Dates (start - stop) Status Members No Information
--- NOTE | 2022-05-27 10:06 | CRLHL7_ITS ---
For Patients: As a result of the Century Cures Act, medical imaging exams and procedure reports are released immediately into your electronic medical record. You may view this report before your referring provider. If you have questions, please contact your health care provider. Indication: Right-sided pleural effusion Technique: Volumetric multidetector CT images of the chest were obtained after the administration of IV contrast. 75 cc Isovue 370 low osmolar intravenous contrast Comparison: None available. Findings: The thoracic inlet and thyroid gland are unremarkable. The thoracic aorta is nonaneurysmal. There is no central filling defect to suggest pulmonary embolism. There is bulky subcarinal and right hilar pulmonary mass lesions with encasement of the right lower lobe bronchi measuring 6.7 x 5.3 centimeters in greatest axial dimension on series 2, image 47. there are additional enlarged right paratracheal lymph nodes the most prominent seen on series 2, image 29 measuring 1.2 centimeters. There is mild to moderate central bronchial thickening. There is dense postobstructive consolidation of the right lower lobe and inferior upper lobes with associated right-sided pleural effusion. There is minimal left basilar atelectasis and demonstration of a small pneumatocele. There is no evidence of pulmonary mass or suspicious pulmonary nodule. The partially visualized upper abdominal viscera are within normal limits. The thoracic vertebral body heights remain intact alignment without significant degenerative change or acute osseous abnormality. Impression: Demonstration of a bulky subcarinal and right hilar mass measuring 6.7 centimeters in greatest dimension with encasement of the right bronchovascular structures and occlusion of the right lower lobe bronchus with dense postobstructive infiltrate and atelectasis. Moderate right-sided pleural effusion. Recommend follow-up with bronchoscopy and tissue sampling for definitive characterization of presumed bronchogenic malignancy. No evidence of pulmonary embolus. Please note that all CT scans at this facility use dose modulation, iterative reconstruction, and/or weight-based dosing when appropriate to reduce radiation dose to as low as reasonably achievable. Dictated by Keith Campos MD @ 05/27/2022 11:36:27 AM (Electronically Signed)
[2022-05-27 10:20] LABS: Basophils Percent Auto 0.1 % (0.0-3.0); Eosinophils Percent Auto 0.4 % (0.0-7.0); Hematocrit 30.9 % (33.0-51.0); Hemoglobin* 10.1 gm/dL (12.0-16.0); Immature Granulocytes Pct Auto 0.7 %; Lymphocytes Percent Auto 6.2 % (20-44); Mean Corpuscular HGB Conc 33 gm/dL (32-36); Mean Corpuscular Hemoglobin 29 pg (26-34); Mean Corpuscular Volume 88 fL (80-100); Monocytes Percent Auto 5.3 % (0.0-11.0); Neutrophils Percent Auto 87.3 % (42.0-72.0); Platelet Count* 473 K/uL (140-440); RDW Coefficient of Variation % 13.7 % (11.5-15.5); White Blood Count* 19.42 K/uL (4.50-11.00)
[2022-05-27 10:22] LABS: Slide Review Reflex No
[2022-05-27 10:27] LABS: Albumin* 3.3 g/dL (3.3-5.0); Chloride* 94 mmol/L (96-114)
[2022-05-27 10:28] LABS: Potassium* 3.2 mmol/L (3.6-5.1); Sodium* 131 mmol/L (135-149)
[2022-05-27 10:30] LABS: Creatinine* 0.7 mg/dL (0.5-1.5); Est. Creatinine Clearance* 85.19; Estimated Glomerular Filt Rate 100 ml/min
[2022-05-27 10:31] LABS: Alanine Aminotransferase* 16 U/L (4-35); Alkaline Phosphatase* 232 U/L (40-150); Aspartate Amino Transferase* 23 U/L (12-35); Bilirubin Direct* 0.4 mg/dL (0.0-0.5); Bilirubin Total* 0.5 mg/dL (0.1-1.5); Blood Urea Nitrogen* 10 mg/dL (7-30); Calcium* 8.1 mg/dL (8.4-10.6); Carbon Dioxide* 32 mmol/L (20-32); Glucose* 120 mg/dL (60-115); Total Protein* 6.8 g/dL (6.0-8.3)
[2022-05-27 11:01] LABS: C Reactive Protein* 39.9 mg/dL (0.5-1.0)
== END 2022-05-27 12:16 | disposition home or self-care (01) ==
PROVIDERS: Emergency Provider Family Medicine; PCP Family Medicine
DX: R07.9 Chest pain, unspecified (principal); J98.4 Other disorders of lung
CPT/HCPCS: 36415; 71045; 71260; 80048; 80076; 84484; 85025; 86140; 93005; 99284; 99285; Q9967

== ENCOUNTER 2022-05-31 08:45 | Outpatient (RCR) | payer BC, SELFPAY | END 2022-08-05 09:28 | disposition home or self-care (01) | PROVIDERS: PCP Family Medicine; Visit Provider Internal Medicine | DX: M48.02 Spinal stenosis, cervical region (principal); M79.601 Pain in right arm; Z74.09 Other reduced mobility; R53.1 Weakness; Z51.89 Encounter for other specified aftercare | CPT/HCPCS: 97012; 97110; 97112; 97162; 97530 ==

== ENCOUNTER 2022-06-13 15:41 | Outpatient (CLI) | payer BC, SELFPAY ==
--- OUTSIDE RECORDS SUMMARY | 2022-06-13 15:43 | XMS_ITS | Continuity of Care Document ---
Author Name Unknown Organization [facility] enter Address [address] [place] [phone] Phone Care Team Providers Care Blast Setter Name Role Phone [facility] Unavailable Unava ilable Procedures Procedure Date INJECT SACROILIAC JOINT Inj for sacroiliac jt anesth Inj for sacroiliac jt anesth INJ FORAMEN EPIDURAL L/S INJ FORAMEN EPIDURAL L/S Advance Directives Directive Yes / No Effective Date File Name No Information Encounters Encounter Description Practice Location Reason(s) For Visit Diagnoses Date Provider Providers Copied on Encounter [facility], [address] [place] [address], [id number], tel:[phone] [facility] No Information 3 [facility]. [address] [place] [address], [id number], [place]. tel:[phone] Referring Provider: Miles Rey, [address] [facility] [address], [place], [address]. tel:[phone] [facility], [address] [place] [address], [id number], tel:[phone] [facility] No Information 2 [facility]. [address] [place] [address], [id number], . tel:[phone] Referring Provider: Liam Blakely [address], [place], [address]. tel:[phone] [facility], [address] [place] [address], [id number], tel:[phone] [facility] No Information - 2 [facility]. [address] [place] [address], [id number], . tel:[phone] Referring Provider: Renetta Bush, [address] [place], [address]. tel:[phone] [facility], [address] [place] [address], [id number], tel:[phone] [facility] No Information 0 [facility]. [address] [place] [address], [id number], . tel:[phone] Referring Provider: Liam Blakely [address], [place], [address]. tel:[phone] Family History Family Member Type Diagnosis Age At Onset No Information Payers Payer name Insurance type Covered democrat ID Authordereka ticarlton(s) [employer] Ariel Garnica [id number] Social History Type Description Quantity Date [...]
--- OUTSIDE RECORDS SUMMARY | 2022-06-13 15:43 | XMS_ITS | Continuity of Care Document ---
Author Name Unknown Organization [facility] Address [address] [place] [id number] Care Team Providers Care Home Economics Expert Name Role Phone [facility] Unavailable Unav ailable Procedures Procedure Date INJECT SACROILIAC JOINT Inj for sacroiliac jt anesth Inj for sacroiliac jt anesth INJ FORAMEN EPIDURAL L/S INJ FORAMEN EPIDURAL L/S Inj for sacroiliac jt anesth Advance Directives Directive Yes / No Effective Date File Name No Information Encounters Encounter Description Practice Location Reason(s) For Visit Diagnoses Date Provider Providers Copied on Encounter [facility], [address] [place] [address], [id number], [facility] No Information [facility]. [address] [place] [address], [id number], . tel:[phone] Referring Provider: Renetta Bush, [address] [place] [address], [id number]. tel:[phone] [facility], [address] [place] [address], [id number], [facility] No Information [facility]. [address] [place] [address], [id number], . tel:[phone] Referring Provider: Renetta Bush, [address] [place] [address], [id number]. tel:[phone] [facility], [address] [place], [place], [id number], [facility] No Information [facility]. [address] [place], [place], [id number], . tel:[phone] Referring Provider: Beth Vick, [address] [place], [address]. tel:[phone] [facility], [address] [place], [place], [id number], [facility] No Information [facility]. [address] [place], [place], [id number], . tel:[phone] Referring Provider: Miles Jiménez, [address] [place] [address], [id number]. tel:[phone] Family History Family Member Type Diagnosis Age At Onset No Information Payers Payer name Insurance type Covered libertarian ID Authoriza ticarlton(s) No Information Social History [...]
--- OUTSIDE RECORDS SUMMARY | 2022-06-13 15:44 | XMS_ITS | Continuity of Care Document ---
Author Name Unknown Organization [facility] Address [address] [facility] [place] [address] Phone Care Team Providers Care Strip Catcher Name Role Phone Andres Thomason Unavailable Unavailable [...] q3mo opiod tx OFFICE/OUTPATIENT VISIT, EST Drug test def 8-14 classes Drug Urine Toxology With Chromatography Injection Sacroiliac Left Foll-up eval q3mo opiod [...] 8-14 classes INJ TRIGGER POINT, 1/2 MUSCL Kenalog Triamcinolone [...] q3mo opiod tx INJ TRIGGER POINT, 02/18 [facility] Foll-up eval q3mo opiod tx OFFICE/OUTPATIENT VISIT, [...] Urine Toxology With Chromatography PT-FOCUSED HLTH RISK ASSOR OFFICE/OUTPATIENT VISIT, NEW Advance Directives Directive Yes / No Effective Date File Name No Information Encounters Encounter Description Practice Location Reason(s) For Visit Diagnoses Date Provider Providers Copied on Encounter OFFICE VISIT, EST TELEMEDICINE [facility], [address] [facility] [place], [id number] , [place] tel:[phone] [facility] [place] low back pain (chief complaint) Spinal stenosis, lumbar regionSacroilii tisMyalgia, other siteRadiculopat hy, lumbar regionLong term (current) use of opiate analgesicChroni c pain syndrome Apr- 3 Jenny Campos. [address] [place] [address], [id number], [place]. tel:[phone] Referring Provider: Miles Jiménez, [address] [place] [address], [address]. tel:[phone] OFFICE/OUTPAT IENT VISIT, [facility], [address] [place] [address], [id number] , [place] [phone] [facility] low back pain (chief complaint) SacroiliitisSpi nal stenosis, lumbar regionRadiculop athy, lumbar regionMyalgia, other siteLong term (current) use of opiate analgesic Apr-0 3 Kelsey Arrington. [address] [place] [address], [id number], [place]. tel:[phone] Referring Provider: Miles Jiménez, [address] [place] [address], [id number]. tel:[phone] [facility], [address] [place] [address], [id number] , [place] [phone] [facility] No Information 3 Kelsey Arrington. [address] [place] [address], [id number], [place]. tel:[phone] [facility], [address] [place] [address], [id number] , [place] tel:[phone] [facility] Sacroiliitis, not elsewhere classified 3 Krissy Aquino. [address] [facility], [facility] [address], [place], [id number], [place]. tel:[phone] Referring Provider: Miles Jiménez, [address] [place] [address], [address]. tel:[phone] OFFICE VISIT, EST TELEMEDICINE [facility], [address] [place] [address], [id number] , [place] tel:[phone] [facility] low back pain (chief complaint) SacroiliitisSpi nal stenosis, lumbar regionRadiculop athy, lumbar regionMyalgia, other siteLong term (current) use of opiate analgesic 0 3 Colehina Arrington. [address] [place] [address], [id number], [place]. tel:[phone] OFFICE VISIT, EST TELEMEDICINE [facility], [address] [place] [address], [id number] , [place] tel:[phone] [facility] low back pain (chief complaint) SacroiliitisSpi nal stenosis, lumbar regionRadiculop athy, lumbar regionMyalgia, other siteLong term (current) use of opiate analgesic 2 Colehina Arrington. [address] [place] [address], [id number], [place]. tel:[phone] [facility], [address] [place] [address], [id number] , [place] [phone] [facility] No Information 2 Cole Murphy. [address] [place] [address], [id number], [place]. tel:[phone] Referring Provider: Miles Jiménez, [address] [place] [address], [id number]. tel:[phone] OFFICE/OUTPAT IENT VISIT, [facility], [address] [place] [address], [id number] , [place] tel:[phone] [facility] low back pain (chief complaint) SacroiliitisSpi nal stenosis, lumbar regionRadiculop athy, lumbar regionMyalgia, other siteLong term (current) use of opiate analgesicEncoun ter for therapeutic drug level monitoring 2 Cole Murphy. [address] [place] [address], [id number], [place]. tel:[phone] Referring Provider: Miles Jiménez, [address] [place] [address], [id number]. tel:[phone] OFFICE VISIT, EST TELEMEDICINE [facility], [address] [place] [address], [id number] , [place] [phone] [facility] low back pain (chief complaint) SacroiliitisSpi nal stenosis, lumbar regionRadiculop athy, lumbar regionMyalgia, other siteLong term (current) use of opiate analgesic Oct-3 2 Cole Murphy. [address] [facility] [address], [place], [id number], [place]. tel:[phone] [facility], [address] [place] [address], [id number] , [place] [phone] [facility] Sacroiliitis, not elsewhere classified Sep-3 2 Reddy Martinis. [facility], [address] [facility] [address], [place], [address], [place]. tel:[phone] Referring Provider: Miles Jiménez, [address] [place] [address], [id number]. tel:[phone] OFFICE VISIT, EST TELEMEDICINE [facility], [address] [place] [address], [id number] , [place] [phone] [facility] low back pain (chief complaint) SacroiliitisSpi nal stenosis, lumbar regionRadiculop athy, lumbar regionMyalgia, other siteLong term (current) use of opiate analgesic Sep-2 2 Kelsey Arrington. [address] [place] [address] [address], [place], [id number], [place]. tel:[phone] Referring Provider: Miles Jiménez, [address] [place] [address], [id number]. tel:[phone] [facility], [address] [place] [address], [id number] , [place] tel:[phone] [facility] No Information 2 Colehina Arrington. [address] [facility] [address], [place], [id number], [place]. tel:[phone] Referring Provider: Miles Jiménez, [address] [place] [address], [address]. [phone] OFFICE/OUTPAT IENT VISIT, EST [facility], [address] [place] [address], [id number] , [place] tel:[phone] [facility] low back pain (chief complaint) SacroiliitisSpi nal stenosis, lumbar regionRadiculop athy, lumbar regionMyalgia, other siteLong term (current) use of opiate analgesic 2 Colehina Arrington. [address] [place] [address] Rd [address], [place], [id number], [place]. [phone] Referring Provider: Miles Jiménez, [address] [place] [address], [id number]. [phone] OFFICE VISIT, [facility] TELEMEDICINE [facility], [address] [place] [address], [id number] , [place] tel:[phone] [facility] Back Pain (chief complaint) SacroiliitisSpi nal stenosis, lumbar regionRadiculop athy, lumbar regionMyalgia, other siteLong term (current) use of opiate analgesic 2 Colekayla Arrington. [address] [place] [address] [address], [place], [id number], [place]. [phone] OFFICE VISIT, [facility] TELEMEDICINE [facility], [address] [place] [address], [id number] , [place] tel:[phone] [facility] Back Pain (chief complaint) SacroiliitisSpi nal stenosis, lumbar regionRadiculop athy, lumbar regionMyalgia, other siteLong term (current) use of opiate analgesic 2 Colekayla Arrington. [address] [place] [address] [address], [place], [id number], [place]. tel:[phone] [facility], [address] [place] [address], [id number] , [place] tel:[phone] [facility] Sacroiliitis, not elsewhere classified 2 Eleazar Jackson. [address] [place] [address], [id number], [place]. tel:[phone] Referring Provider: Miles Jiménez, [address] [place] [address], [id number]. tel:[phone] OFFICE VISIT, [facility] TELEMEDICINE [facility], [address] [place] [address], [id number] , [place] tel:[phone] [facility] Back Pain (chief complaint) SacroiliitisSpi nal stenosis, lumbar regionRadiculop athy, lumbar regionMyalgia, other siteLong term (current) use of opiate analgesic James-0 2 Cole Murphy. [address] [place] [address], [id number], [place]. tel:[phone] Referring Provider: Miles Jiménez, [address] [place] [address], [id number]. tel:[phone] OFFICE VISIT, [facility], [address] [place] [address], [id number] , [place] tel:[phone] [facility] Back Pain (chief complaint) SacroiliitisSpi nal stenosis, lumbar regionRadiculop athy, lumbar regionMyalgia, other siteLong term (current) use of opiate analgesic June-0 2 Cole Murphy. [address] [place] [address] [address], [place], [id number], [place]. tel:[phone] [facility], [address] [place] [address], [id number] , [place] [phone] [facility] No Information 2 Cole Murphy. [address] [place] [address] [address], [place], [id number], [place]. tel:[phone] OFFICE/OUTPAT IENT VISIT, [facility], [address] [place] [address], [id number] , [place] tel:[phone] [facility] Back Pain (chief complaint) Myalgia, other siteSacroiliiti sSpinal stenosis, lumbar regionRadiculop athy, lumbar regionLong term (current) use of opiate analgesicEncoun ter for screening for other disorderEncount er for therapeutic drug level monitoring 2 Colehina Arrington. [address] [facility] [address], [id number], [place]. tel:[phone] Referring Provider: Miles Jiménez, [address] [place] [address], [id number]. tel:[phone] OFFICE VISIT, EST TELEMEDICINE [facility], [address] [place] [address], [id number] , [place] [phone] [facility] [place] No Information 2 Colehina Arrington. [address] [place] [address], [id number], [place]. tel:[phone] Referring Provider: Miles Jiménez, [address] [place] [address], [address]. tel:[phone] OFFICE VISIT, EST TELEMEDICINE [facility], [address] [place] [address], [id number] , [place] [phone] [facility] Back Pain (chief complaint) Radiculopathy, lumbar regionSacroilii tisSpinal stenosis, lumbar regionMyalgia, other siteLong term (current) use of opiate analgesic 2 Coleihna Arrington. [address] [facility] [address], [id number], [place]. tel:[phone] OFFICE VISIT, EST TELEMEDICINE [facility], [address] [place] [address], [id number] , [place] tel:[phone] [facility] Back Pain (chief complaint) Radiculopathy, lumbar regionSacroilii tisSpinal stenosis, lumbar regionMyalgia, other siteLong term (current) use of opiate analgesic 1 Colehina Arrington. [address] [place] [address] [facility] [address], [place], [id number], [place]. tel:[phone] [facility], [address] [place] [address], [id number] , [place] tel:[phone] [facility] Sacroiliitis Dec-0 3-202 1 Eleazar Jackson. [address] [place] [address], [id number], [place]. tel:[phone] Referring Provider: Miles Jiménez, [address] [place] [address], [address]. tel:[phone] OFFICE VISIT, EST TELEMEDICINE [facility], [address] [place] [address], [id number] , [place] tel:[phone] [facility] Back Pain (chief complaint) Radiculopathy, lumbar regionSpinal stenosis, lumbar regionSacroilii tisMyalgia, other siteLong term (current) use of opiate analgesic Dec-0 2-202 1 Kelsey Arrington. [address] [place] [address], [id number], [place]. tel:[phone] Referring Provider: Miles Jiménez, [address] [place] [address], [address]. tel:[phone] OFFICE VISIT, EST TELEMEDICINE [facility], [address] [place] [address], [id number] , [place] tel:[phone] [facility] Back Pain (chief complaint) Radiculopathy, lumbar regionSpinal stenosis, lumbar regionSacroilii tisMyalgia, other siteLong term (current) use of opiate analgesic Nov-0 3-202 1 Kelsey Arrington. [address] [place] [address] [address], [place], [id number], [place]. tel:[phone] OFFICE VISIT, EST TELEMEDICINE [facility], [address] [place] [address], [id number] , [place] [phone] [facility] Back Pain (chief complaint) Myalgia, other siteSacroiliiti sRadiculopathy, lumbar regionSpinal stenosis, lumbar regionLong term (current) use of opiate analgesic Oct-0 4-202 1 Kelsey Arrington. [address] [place] [address] [address], [place], [id number], [place]. tel:[phone] Referring Provider: Miles Jiménez, [address] [place] [address], [address]. tel:[phone] [facility], [address] [place] [address], [id number] , [place] [phone] [facility] Myalgia, other site Sep-1 0-202 1 Colekayla Arrington. [address] [place] [address], [id number], [place]. tel:[phone] Referring Provider: Miles Jiménez, [address] [place] [address], [address]. tel:[phone] OFFICE VISIT, EST TELEMEDICINE [facility], [address] [place] [address], [id number] , [place] tel:[phone] [facility] Back Pain (chief complaint) SacroiliitisRad iculopathy, lumbar regionSpinal stenosis, lumbar regionLong term (current) use of opiate analgesicMyalgi a, other site Sep-0 3- 1 Cole Murphy. [address] [place] [address], [id number], [place]. tel:[phone] Referring Provider: Miles Jiménez, [address] [place] [address], [address]. tel:[phone] OFFICE VISIT, EST TELEMEDICINE [facility], [address] [place] [address], [id number] , [place] [phone] [facility] Back Pain (chief complaint) SacroiliitisRad iculopathy, lumbar regionSpinal stenosis, lumbar regionLong term (current) use of opiate analgesicMyalgi a, other site Aug-0 1 Cole Murphy. [address] [place] [address], [id number], [place]. tel:[phone] Referring Provider: Miles Jiménez, [address] [place] [address], [address]. tel:[phone] OFFICE VISIT, EST TELEMEDICINE [facility], [address] [place] [address], [id number] , [place] tel:[phone] [facility] Back Pain (chief complaint) SacroiliitisRad iculopathy, lumbar regionSpinal stenosis, lumbar regionLong term (current) use of opiate analgesicMyalgi a, other site 1 Colekayla Arrington. [address] [facility] [address], [place], [id number], [place]. tel:[phone] Referring Provider: Miles Jiménez, [address] [place] [address], [address]. [phone] OFFICE VISIT, EST TELEMEDICINE [facility], [address] [place] [address], [id number] , [place] [phone] [facility] Back Pain (chief complaint) SacroiliitisRad iculopathy, lumbar regionSpinal stenosis, lumbar regionLong term (current) use of opiate analgesicMyalgi a, other site 1 Kelsey Arrington. [address] [place] [address], [id number], [place]. tel:[phone] Referring Provider: Miles Jiménez, [address] [place] [address], [address]. tel:[phone] OFFICE VISIT, EST TELEMEDICINE [facility], [address] [place] [address], [id number] , [place] [phone] [facility] Back Pain (chief complaint) SacroiliitisRad iculopathy, lumbar regionSpinal stenosis, lumbar regionLong term (current) use of opiate analgesicMyalgi a, other site 1 Kelsey Arrington. [address] [place] [address] [address], [place], [id number], [place]. tel:[phone] Referring Provider: Miles Jiménez, [address] [place] [address], [address]. tel:[phone] [facility], [address] [place] [address], [id number] , [place] [phone] [facility] Sacroiliitis Apr-2 1 Eleazar Jackson. [address] [place] [address], [id number], [place]. tel:[phone] Referring Provider: Miles Jiménez, [address] [place] [address], [address]. tel:[phone] OFFICE VISIT, EST TELEMEDICINE [facility], [address] [place] [address], [id number] , [place] [phone] [facility] Back Pain (chief complaint) Radiculopathy, lumbar regionSpinal stenosis, lumbar regionLong term (current) use of opiate analgesicMyalgi a, other siteSacroiliiti s 1 Kelsey Arrington. [address] [place] [address] [address], [place], [id number], [place]. tel:[phone] Referring Provider: Miles Jiménez, [address] [place] [address], [address]. tel:[phone] OFFICE VISIT, EST [facility], [address] [place] [address], [id number] , [place] tel:[phone] [facility] Back Pain (chief complaint) Radiculopathy, lumbar regionSpinal stenosis, lumbar regionLong term (current) use of opiate analgesicMyalgi a, other siteSacroiliiti s 1 Kelsey Arrington. [address] [place] [address] [address], [place], [id number], [place]. tel:[phone] Referring Provider: Miles Jiménez, [address] [place] [address], [id number]. tel:[phone] OFFICE VISIT, EST TELEMEDICINE [facility], [address] [place] [address], [id number] , [place] tel:[phone] [facility] Back Pain (chief complaint) Radiculopathy, lumbar regionSpinal stenosis, lumbar regionLong term (current) use of opiate analgesicSacroi liitisMyalgia, other site Fe 1 Kelsey Arrington. [address] [place] [address] [address], [place], [id number], [place]. tel:[phone] Referring Provider: Miles Jiménez, [address] [place] [address], [address]. [phone] [facility], [address] [place] [address], [id number] , [place] tel:[phone] [facility] [place] No Information 1 Kelsey Arrington. [address] [place] [address], [place], [id number], [place]. [phone] OFFICE/OUTPAT IENT VISIT, [facility], [address] [place] [address], [id number] , [place] tel:[phone] [facility] Back Pain (chief complaint) Radiculopathy, lumbar regionSpinal stenosis, lumbar regionLong term (current) use of opiate analgesicSacroi liitisMyalgia, other site 1 Kelsey Arrington. [address] [place] [address], [id number], [place]. [phone] Referring Provider: Miles Jiménez, [address] [place] [address], [address]. [phone] OFFICE VISIT, [facility] TELEMEDICINE [facility], [address] [place] [address], [id number] , [place] tel:[phone] [facility] Back Pain (chief complaint) Radiculopathy, lumbar regionSpinal stenosis, lumbar regionLong term (current) use of opiate analgesicSacroi liitisMyalgia, other site 0 Cole Murphy. [address] [place] [address] [address], [place], [id number], [place]. tel:[phone] Referring Provider: Miles Jiménez, [address] [place] [address], [address]. tel:[phone] [facility], [address] [place] [address], [id number] , [place] [phone] [facility] Radiculopathy, lumbar region 0 Reddy Wheeler. [facility], [address], [place], [address], [place]. tel:[phone] Referring Provider: Miles Jiménez, [address] [place] [address], [address]. tel:[phone] OFFICE VISIT, EST TELEMEDICINE [facility], [address] [place] [address], [id number] , [place] [phone] [facility] Back Pain (chief complaint) Radiculopathy, lumbar regionSpinal stenosis, lumbar regionLong term (current) use of opiate analgesicSacroi liitisMyalgia, other site 0 Cole Murphy. [address] [place] [address] 11 [address], [place], [id number], [place]. tel:[phone] Referring Provider: Miles Jiménez, [address] [place] [address], [address]. tel:[phone] OFFICE VISIT, EST TELEMEDICINE [facility], [address] [place] [address], [id number] , [place] [phone] [facility] Back Pain (chief complaint) Radiculopathy, lumbar regionSpinal stenosis, lumbar regionLong term (current) use of opiate analgesicSacroi liitisMyalgia, other site 0 Cole Murphy. [address] [place] [address] [address], [place], [id number], [place]. tel:[phone] Referring Provider: Miles Jiménez, [address] [place] [address], [address]. tel:[phone] OFFICE VISIT, EST TELEMEDICINE [facility], [address] [place] [address], [id number] , [place] tel:[phone] [facility] Back Pain (chief complaint) Radiculopathy, lumbar regionSpinal stenosis, lumbar regionLong term (current) use of opiate analgesicSacroi liitisMyalgia, other site 0 Cole Murphy. [address] [facility] [address], [place], [place], [id number], [place]. tel:[phone] Referring Provider: Miles Jiménez, [address] [place] [address], [address]. tel:[phone] OFFICE/OUTPAT IENT VISIT, [facility], [address] [place] [address], [id number] , [place] [phone] [facility] Back Pain (chief complaint) Radiculopathy, lumbar regionSpinal stenosis, lumbar regionLong term (current) use of opiate analgesicSacroi liitisMyalgia, other site 0 Cole Murphy. [address] [place] [address] [address], [place], [id number], [place]. tel:[phone] Referring Provider: Miles Jiménez, [address] [place] [address], [id number]. tel:[phone] [facility], [address] [place] [address], [id number] , [place] [phone] [facility] Radiculopathy, lumbar region 0 Vick Beth. [address] [place] [address], [id number], [place]. tel:[phone] Referring Provider: Miles Jiménez, [address] [place] [address], [id number]. tel:[phone] OFFICE VISIT, EST TELEMEDICINE [facility], [address] [place] [address], [id number] , [place] [phone] [facility] Back Pain (chief complaint) Radiculopathy, lumbar regionSpinal stenosis, lumbar regionLong term (current) use of opiate analgesicSacroi liitis 0 Cole Murphy. [address] [place] [address] [address], [place], [id number], [place]. tel:[phone] Referring Provider: Miles Jiménez, [address] [place] [address], [id number]. tel:[phone] [facility], [address] [place] [address], [id number] , [place] tel:[phone] [facility] Radiculopathy, lumbar region 0 Kelsey Arrington. [address], [place], [id number], [place]. tel:[phone] OFFICE VISIT, EST TELEMEDICINE [facility], [address] [place] [address], [id number] , [place] tel:[phone] [facility] Back Pain (chief complaint) Radiculopathy, lumbar regionSpinal stenosis, lumbar regionLong term (current) use of opiate analgesicSacroi liitis Jul- 0 Kelsey Arrington. [address], [place], [place], [id number], [place]. tel:[phone] Referring Provider: Miles Jiménez, [address] [place] [address], [id number]. tel:[phone] OFFICE VISIT, EST TELEMEDICINE [facility], [address] [place] [address], [id number] , [place] tel:[phone] [facility] Back Pain (chief complaint) Low back painChronic pain syndromeRadicul opathy, lumbar regionSpinal stenosis, lumbar regionLong term (current) use of opiate analgesic 0 Kelsey Arrington. [address], [place], [id number], [place]. tel:[phone] [facility], [address] [place] [address], [id number] , [place] tel:[phone] [facility] Low back pain 0 Live Aquino. [address] [place] [address], [id number], [place]. tel:[phone] Referring Provider: Miles Jiménez, [address] [place] [address], [id number]. tel:[phone] OFFICE VISIT, EST TELEMEDICINE [facility], [address] [place] [address], [id number] , [place] tel:[phone] [facility] Back Pain (chief complaint) Chronic pain syndromeRadicul opathy, lumbar regionSpinal stenosis, lumbar regionLong term (current) use of opiate analgesic Apr-1 0-202 0 Cole Murphy. [address] [facility] [address], [id number], [place]. tel:[phone] Referring Provider: Miles Jiménez, [address] [place] [address], [id number]. tel:[phone] OFFICE VISIT, [facility], [address] [place] [address], [id number] , [place] tel:[phone] [facility] Back Pain (chief complaint) Chronic pain syndromeRadicul opathy, lumbar regionSpinal stenosis, lumbar regionLong term (current) use of opiate analgesicLow back pain Apr-02 25- 0 Kelsey Arrington. [address] [facility] [address], [id number], [place]. tel:[phone] Referring Provider: Miles Jiménez, [address] [place] [address], [id number]. tel:[phone] OFFICE/OUTPAT IENT VISIT, [facility], [address] [place] [address], [id number] , [place] tel:[phone] [facility] Back Pain (chief complaint) Chronic pain syndromeOther intervertebral disc degeneration, lumbar regionRadiculop athy, lumbar regionSpinal stenosis, lumbar regionEncounter for therapeutic drug level monitoringLong term (current) use of opiate analgesic Apr-0 6- 0 Colehina Arrington. [address] [facility] [address], [id number], [place]. tel:[phone] Referring Provider: Abdifatah Henry, [facility] [address] [place], [address]. tel:[phone] Family History Family Member Type Diagnosis Age At Onset No Information Payers Payer name Insurance type Covered green party ID Authordereka ticarlton(s) [employer] Ariel Garnica DALE [id number] Social History Type Description Quantity Date [...] Of Treatment Date Type Action Status Goal Creatinine. Due on due Goal ALT (SGPT). Due on due Goal Order Annual PT. Due on due Goal IMAGING ASSISTANT Paperwork. Due on due Goal OARS. Due on due Goal UDT. Due on due Goal ENTRY LEVEL ASSISTANT MANAGER Scanned. Due on due Goal AST (SGOT). Due on due Goal PHQ-9. Due on du e Goal Update Social History. Due o n due Goal HPV. Due on due Goal Lipid panel. Due on [address]-Colonography. Due on due Goal Hepatitis C screening. Due o n due Goal Review Allergy List. Due on due Goal Medication Recon ciliation. Due on due Goal Weight. Due on d ue Goal FIT. Due on due Goal Unhealthy drug u se screening. Due on due Goal Zoster vaccine (1st). Due on due Goal Height. Due on d ue Goal Tobacco Use. Due on due Goal FIT-DNA. Due on due Goal Medication Recon ciliation. Due on due Goal Height. Due on d ue Goal Update Social History. Due o n due Goal FIT. Due on due Goal Creatinine. Due on due Goal UDT. Due on due Goal ENTRY LEVEL ASSISTANT MANAGER Scanned. Due on due Goal ALT (SGPT). Due on due Goal AST (SGOT). Due on due Goal Order Annual PT. Due on due Goal OARS. Due on due Goal IMAGING ASSISTANT Paperwork. Due on due Goal Review Allergy List. Due on due Goal FIT-DNA. Due on due Goal Weight. Due on d ue Goal HPV. Due on due Goal Tobacco Use. Due on due Goal Hepatitis C screening. Due o n due Goal Unhealthy drug u se screening. Due on due Goal Lipid panel. Due on due Goal CT-Colonography. Due on due Goal PHQ-9. Due on du e Goal Zoster vaccine (1st). Due on due Goal ENTRY LEVEL ASSISTANT MANAGER Scanned. Due on due Goal AST (SGOT). Due on due Goal UDT. Due on due Goal OARS. Due on due Goal Order Annual PT. Due on due Goal ALT (SGPT). Due on due Goal IMAGING ASSISTANT Paperwork. Due on due Goal Creatinine. Due [...] ue Goal CT-Colonography. Due on due Goal HPV. Due on due Goal Update Social History. Due o n due Goal Zoster vaccine (1st). Due on due Goal Lipid panel. Due on due Goal Unhealthy drug u se screening. Due on due Goal Height. Due on d ue Goal ALT (SGPT). Due on due Goal AST (SGOT). Due on due Goal IMAGING ASSISTANT Paperwork. Due on due Goal ENTRY LEVEL ASSISTANT MANAGER Scanned. Due on due Goal OARS. Due [...] ue Goal CT-Colonography. Due on due Goal Update Social History. Due o n due Goal Review Allergy List. Due on due Goal Unhealthy drug u se screening. Due on due Goal Tobacco Use. Due on due Goal FIT-DNA. Due on due Goal Hepatitis C screening. Due o n due Goal Zoster vaccine (1st). Due on due Goal Medication Recon ciliation. Due on due Goal IMAGING ASSISTANT Paperwork. Due on due Goal PHQ-9. Due on du e Goal Medication Recon ciliation. Due on due Goal Creatinine. Due on due Goal UDT. Due on due Goal ENTRY LEVEL ASSISTANT MANAGER Scanned. Due on due Goal Order Annual [...] due Goal FIT. Due on due Goal OARS. Due on due Goal PHQ-9. Due on du e Goal Tobacco Use. Due on due Goal ALT (SGPT). Due on due Goal AST (SGOT). Due on due Goal Order Annual PT. Due on due Goal ENTRY LEVEL ASSISTANT MANAGER Scanned. Due on due Goal UDT. Due on due Goal Creatinine. Due on due Goal IMAGING ASSISTANT Paperwork. Due on due Goal Weight. Due [...] Goal AST (SGOT). Due on due Goal HPV. Due on due Goal Height. Due on d ue Goal ENTRY LEVEL ASSISTANT MANAGER Scanned. Due on due Goal UDT. Due on due Goal Order Annual PT. Due on due Goal OARS. Due on due Goal Creatinine. Due on due Goal ALT (SGPT). Due on due Goal IMAGING ASSISTANT Paperwork. Due on due Goal Weight. Due on d ue Goal Update Social History. Due o n due Goal Review Allergy List. Due on due Goal FIT-DNA. Due on due Goal FIT. Due on due Goal Hepatitis C screening. Due o n due Goal Zoster vaccine (). Due on due Goal CT-Colonography. Due on due Goal PHQ-9. Due on du e Goal Tobacco Use. Due on due Goal Medication Recon ciliation. Due on due Goal Unhealthy drug u se screening. Due on due Goal Lipid panel. Due on due Goal ENTRY LEVEL ASSISTANT MANAGER Scanned. Due on due Goal Tobacco Use. Due on due Goal Hepatitis C screening. Due o n due Goal UDT. Due on due Goal Creatinine. Due on due Goal IMAGING ASSISTANT Paperwork. Due on due Goal ALT (SGPT). Due on due Goal Order Annual PT. Due on due Goal OARS. Due on due Goal AST (SGOT). Due on due Goal Height. Due on d ue Goal Unhealthy drug u se screening. Due on due Goal Medication Recon ciliation. Due on due Goal Review Allergy List. Due on due Goal CT-Colonography. Due on due Goal FIT-DNA. Due on due Goal Weight. Due on d ue Goal FIT. Due on due Goal HPV. Due on due Goal Lipid panel. Due on due Goal Update Social History. Due o n due Goal Zoster vaccine (1st). Due on due Goal PHQ-9. Due on du e Goal ALT (SGPT). Due on due Goal HPV. Due on due Goal Height. Due on d ue Goal Order Annual PT. Due on due Goal IMAGING ASSISTANT Paperwork. Due on due Goal ENTRY LEVEL ASSISTANT MANAGER Scanned. Due on due Goal OARS. Due [...] Medication Recon ciliation. Due on due Goal Zoster vaccine (). Due on due Goal Review Allergy List. Due on due Goal Lipid panel. Due on due Goal FIT-DNA. Due on due Goal CT-Colonography. Due on due Goal Weight. Due on d ue Goal Height. Due on d ue Goal CT-Colonography. Due on due Goal Review Allergy List. Due on due Goal FIT. Due on due Goal Weight. Due on d ue Goal Unhealthy drug u se screening. Due on due Goal ENTRY LEVEL ASSISTANT MANAGER Scanned. Due on due Goal Order Annual PT. Due on due Goal AST (SGOT). Due on due Goal IMAGING ASSISTANT Paperwork. Due on due Goal Creatinine. Due on due Goal ALT (SGPT). Due on due Goal UDT. Due on due Goal OARS. Due on due Goal FIT-DNA. Due on due Goal Lipid panel. Due on due Goal Tobacco Use. Due on due Goal HPV. Due on due Goal Hepatitis C screening. Due o n due Goal Zoster vaccine (). Due on due Goal Medication Recon ciliation. [...] Use. Due on due Goal Zoster vaccine (). Due on due Goal HPV. Due on due Goal Hepatitis C screening. Due o n due Goal Height. Due on d ue Goal CT-Colonography. Due on due Goal ENTRY LEVEL ASSISTANT MANAGER Scanned. Due on due Goal AST (SGOT). Due on due Goal Weight. Due on d ue Goal Medication Recon ciliation. Due on due Goal OARS. Due on due Goal ALT (SGPT). Due on due Goal IMAGING ASSISTANT Paperwork. Due on due Goal Order Annual PT. Due on due Goal UDT. Due on due Goal Creatinine. Due on due Goal OARS. Due on due Goal FIT. Due on due Goal FIT-DNA. Due on due Goal AST (SGOT). Due on due Goal UDT. Due on due Goal ALT (SGPT). Due on due Goal Creatinine. Due on due Goal ENTRY LEVEL ASSISTANT MANAGER Scanned. Due on due Goal Order Annual PT. Due on due Goal IMAGING ASSISTANT Paperwork. Due on due Goal Review Allergy [...] due Goal UDT. Due on due Goal AST (SGOT). Due on due Goal PHQ-9. Due on du e Goal FIT-DNA. Due on due Goal Height. Due on d ue Goal Weight. Due on d ue Goal Creatinine. Due on due Goal ALT (SGPT). Due on due Goal IMAGING ASSISTANT Paperwork. Due on due Goal Order Annual PT. Due on due Goal OARS. Due on due Goal ENTRY LEVEL ASSISTANT MANAGER Scanned. Due on due Goal Zoster vaccine (). [...] C screening. Due o n due Goal AST (SGOT). Due on due Goal Order Annual PT. Due on due Goal ENTRY LEVEL ASSISTANT MANAGER Scanned. Due on due Goal ALT (SGPT). Due on due Goal Creatinine. Due on due Goal UDT. Due on due Goal IMAGING ASSISTANT Paperwork. Due on due Goal OARS. Due on due Goal Update Social History. Due o n due Goal Review Allergy List. Due on due Goal FIT-DNA. Due on due Goal HPV. Due on due Goal Unhealthy drug u se screening. Due on due Goal FIT. Due on due Goal Height. Due on d ue Goal Lipid panel. Due on due Goal Weight. Due on d ue Goal PHQ-9. Due on du e Goal CT-Colonography. Due on due Goal Hepatitis C screening. Due o n due Goal Zoster vaccine (1st). Due on due Goal Medication Recon ciliation. Due on due Goal Tobacco Use. Due on due Goal OARS. Due on due Goal Update Social History. Due o n due Goal Review Allergy List. Due on due Goal CT-Colonography. Due on due Goal IMAGING ASSISTANT Paperwork. Due on due Goal Creatinine. Due on due Goal ENTRY LEVEL ASSISTANT MANAGER Scanned. Due on due Goal UDT. Due on due Goal Order Annual PT. Due on due Goal ALT (SGPT). Due on due Goal AST (SGOT). Due on due Goal Zoster vaccine (). [...] Goal Lipid panel. Due on due Goal ALT (SGPT). Due on due Goal UDT. Due on due Goal Update Social History. Due o n due Goal Tobacco Use. Due on due Goal Medication Recon ciliation. Due on due Goal Creatinine. Due on due Goal IMAGING ASSISTANT Paperwork. Due on due Goal ENTRY LEVEL ASSISTANT MANAGER Scanned. Due on due Goal Order Annual [...] e Goal Creatinine. Due on due Goal IMAGING ASSISTANT Paperwork. Due on due Goal ENTRY LEVEL ASSISTANT MANAGER Scanned. Due on due Goal Order Annual PT. Due on due Goal OARS. Due on due Goal AST (SGOT). Due on due Goal ALT (SGPT). Due on due Goal UDT. Due on due Goal Update Social History. Due o n due Goal Tobacco Use. Due on due Goal ALT (SGPT). Due [...] e Goal Creatinine. Due on due Goal IMAGING ASSISTANT Paperwork. Due on due Goal ENTRY LEVEL ASSISTANT MANAGER Scanned. Due on due Goal Order Annual PT. Due on due Goal OARS. Due on due Goal AST (SGOT). Due on due Goal Medication Recon ciliation. Due on due Goal Weight. Due on d ue Goal Review Allergy List. Due on due Goal Height. Due on d ue Goal PHQ-9. Due on du e Goal Creatinine. Due on due Goal IMAGING ASSISTANT Paperwork. Due on due Goal ENTRY LEVEL ASSISTANT MANAGER Scanned. Due on due Goal Order Annual PT. Due on due Goal OARS. Due on due Goal AST (SGOT). Due on due Goal ALT (SGPT). Due on due Goal UDT. Due on due Goal Update Social History. Due o n due Goal Tobacco Use. Due on due Goal Creatinine. Due on due Goal IMAGING ASSISTANT Paperwork. Due on due Goal ENTRY LEVEL ASSISTANT MANAGER Scanned. Due on due Goal Order Annual [...] e Goal Creatinine. Due on due Goal IMAGING ASSISTANT Paperwork. Due on due Goal ENTRY LEVEL ASSISTANT MANAGER Scanned. Due on due Goal Order Annual [...] ue Goal Creatinine. Due on due Goal IMAGING ASSISTANT Paperwork. Due on due Goal ENTRY LEVEL ASSISTANT MANAGER Scanned. Due on due Goal Order Annual PT. Due on due Goal OARS. Due on due Goal AST (SGOT). Due on due Goal AST (SGOT). Due [...] Order Annual PT. Due on due Goal ENTRY LEVEL ASSISTANT MANAGER Scanned. Due on due Goal IMAGING ASSISTANT Paperwork. Due on due Goal Creatinine. Due [...] due Goal Creatinine. Due on due Goal IMAGING ASSISTANT Paperwork. Due on due Goal ENTRY LEVEL ASSISTANT MANAGER Scanned. Due on due Goal Order Annual PT. Due on due Goal OARS. Due on due Goal AST (SGOT). Due on due Goal PHQ-9. Due on du e Goal Creatinine. Due on due Goal IMAGING ASSISTANT Paperwork. Due on due Goal ENTRY LEVEL ASSISTANT MANAGER Scanned. Due on due Goal Order Annual [...] e Goal Creatinine. Due on due Goal IMAGING ASSISTANT Paperwork. Due on due Goal ENTRY LEVEL ASSISTANT MANAGER Scanned. Due on due Goal Order Annual PT. Due on due Goal OARS. Due on due Goal AST (SGOT). Due on due Goal ALT (SGPT). Due on due Goal UDT. Due on due Goal Update Social History. Due o n due Goal Update Social History. Due o n due Goal Tobacco Use. Due on due Goal Creatinine. Due on due Goal IMAGING ASSISTANT Paperwork. Due on due Goal ENTRY LEVEL ASSISTANT MANAGER Scanned. Due on due Goal Order Annual PT. Due on due Goal OARS. Due on due Goal AST (SGOT). Due on due Goal ALT (SGPT). Due on due Goal UDT. Due on due Goal Medication Recon ciliation. [...] Order Annual PT. Due on due Goal ENTRY LEVEL ASSISTANT MANAGER Scanned. Due on due Goal IMAGING ASSISTANT Paperwork. Due on due Goal Creatinine. Due on due Goal PHQ-9. Due on du e Goal Creatinine. Due on due Goal IMAGING ASSISTANT Paperwork. Due on due Goal ENTRY LEVEL ASSISTANT MANAGER Scanned. Due on due Goal Order Annual [...] she is traveling. No other concerns today. Comments: Belkis richardson [...] that she will have to travel to [place] in January for work; notes that she will also have to travel back to [place] for work as well.Current medication regimen of [place] 5-325mg provides 50-60% pain relief for increased [...] her recent long flight.Continues to use her [place] sparingly which she notices an appreciable benefit. Denies SE. No other concerns. Comments: Belkis bee s here for a [...] at previous OV. Continues to use her [place] sparingly which she notices an appreciable benefit. Denies SE. No other concerns. low back pain Severity level i s 4. Duration: chronic. The problem is stable. It occurs persistently. Location of pain is lower back. The client describes the pain as an ache. Comments: Belkis bee s here for follow-up, medication management and trigger point injections. 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 These have darryl her good relief in the past. Notes that her SI joint relief is still ongoing from injections completed on August 02, 2021 at the [facility]. She is requesting to repeat injections late October as she is nervous for her 10 hour flight for a work related trip to [place]. Continues to use her [place] sparingly which she notices an appreciable benefit.Patient is not accompanied today. No other concerns. low back pain Severity level i s 8. Duration: chronic. The problem is changing in character. It occurs intermittently. Location of pain is lower back. Pain is radiated to the back. The client describes the pain as burning and diffuse. Symptoms are aggravated by ascending stairs, descending stairs and walking. Symptoms are relieved by pain meds/drugs and rest. Comments: Belkis richardson resents for virtual follow-up [...] with prescribed medication. Continues to take her [place] sparingly. This helps her maintain her lowest [...] active recently.Of note, she is traveling to [place] soon.She reports greater than 50% relief with her medication regimen. Denies any side effects. Presents on track with prescribed medication. Continues to take her [place] sparingly. This helps her maintain her lowest [...] with prescribed medication. Continues to take her [place] sparingly. This helps her maintain her lowest effective dose. This also explains her surplus today. Request a refill. Patient is not accompanied today. No other concerns. Comments: Belkis i s here for follow-up, [...] ordered at previous OV.Continues to take her [place] sparingly. This helps her maintain her lowest [...] is due to recently traveling back from [place] to [place]. She spent the winter in [place]. Her worst complaint is her left side pain. She requests repeat TPI's as well as a repeat left SI joint injection. Previous TPI's and SI joint injection provided greater than 70% relief for over three months. She also notices functional improvements with the injections.Continues to take her [place] sparingly. This helps her maintain her lowest effective dose. This also explains her surplus today. Request a refill.Patient is not accompanied today. No other concerns. Back Pain Severity level i s 2. Duration: chronic. The problem is fluctuating. It occurs persistently. The patient describes the pain as an ache and sharp. Symptoms are aggravated by bending, lifting and prolonged positioning. Symptoms are relieved by heat, pain meds/drugs, stretching and changing positions. Back Pain Severity level i s 5. [...] positions. Back Pain (comments) Belkis is charla ting with us today via [facility] for follow up and medication refill. She is followed for lower back and SI joint pain. Reports overall pain has been stable since last OV. Notes she continues to benefit from [place] and requests a refill. Of note, she has been able to enjoy her time in [place]. Reports current medication regimen provides 50-60% pain [...] prolonged positioning during her car ride to [place]. Pain has slowly been returning to baseline. Notes she continues to benefit from [place] and requests a refill. Reports current medication [...] positions. Back Pain (comments) Belkis is charla jesica with us today via [facility] for follow up and medication refill. Low back pain persists this month, but medication does help to some extent. She looks forward to lumbar EVELIN scheduled for later today. Of note, patient plans to travel to [place] for 3 months starting on 02/02. She looks forward to being in the warm weather so she can be more active. She inquires about how to fill her medications while she is in [place]. Reports current medication regimen provides 50-60% pain [...] visit. No other concerns today. Back Pain Duration: [...] by heat and changing positions. Back Pain (comments) Belkis [...] meds/drugs, rest and changing positions. Back Pain Duration: chroni [...] positions. Back Pain Severity level i s 3. [...] rest, sitting and changing positions. Back Pain Duration: chroni [...] morning. She will monitor pain levels for mcfp relief.Reports current medication regimen provides 50% pain [...] changing positions, standing and walking. Back Pain (comments) Belkis is her e today for a followup after initial consult for persistent back pain. She reports her pain today is stable managed with medications and intermittent SI joint injections. Dr. Henry is requesting [facility] takeover patient's pain management regimen. She would like order placed for L SI joint injection today.Patient is not accompanied today and has no further questions or other concerns. Back Pain Severity level i s 5. Duration: chronic. The problem is stable. It occurs persistently. Location of pain is lower back. Symptoms are aggravated by ascending stairs, bending, descending stairs, lifting, lying/rest, sitting, standing, twisting, walking and prolonged positioning. Symptoms are relieved by heat, ice, lying down, physical therapy, sitting, changing positions, standing, stretching and walking. Back Pain Onset: gradual w ithout injury. [...] down, pain meds/drugs, stretching, sitting and walking. Back Pain (comments) Belkis is [...] her to work and partake in [employer]. Functional Status Date Functional Assessmen t No [...] Jose provided more than 50% relief assessment assisted (current) use of opiat e analgesic impression [...] Mental Status Date Cognitive Assessment Orientation - [place] ed to time, place, person, situation. Patient Care Teams Name Effective Dates (start - stop) Status Members No Information
--- NOTE | 2022-06-13 16:00 | CRLHL7_ITS ---
For Patients: As a result of the Century Cures Act, medical imaging exams and procedure reports are released immediately into your electronic medical record. You may view this report before your referring provider. If you have questions, please contact your health care provider. INDICATION: Loss of function of right hand. History of lung cancer. TECHNIQUE: Multiplanar multisequence MR imaging acquired through the brain prior to and following intravenous contrast. COMPARISON: None. FINDINGS: Numerous (greater than 20) heterogeneously enhancing lesions in the cerebral and cerebellar hemispheres, compatible with widespread metastatic disease. The largest lesions demonstrate heterogeneous internal susceptibility likely secondary to blood products. Several lesions demonstrate diffusion restriction. Dominant lesion centered within the left postcentral gyrus measuring 3.2 x 3.0 cm (TR/AP) associated with moderately extensive perilesional edema. Additional notable lesions measuring 2.6 x 2.5 mm (AP/TR) within the anterior left occipital lobe and 1.4 cm within the anterolateral left frontal lobe associated with [id number] parenchymal edema. Mass effect results in local sulcal effacement as well as 2 mm rightward midline shift. The ventricles are not enlarged for patient age. No hydrocephalus. Scattered FLAIR hyperintensities in the supratentorial white matter, typical for mild chronic microvascular ischemic changes. The major arterial flow voids of the skullbase are preserved. The globes are symmetric. The paranasal sinuses are well aerated. Trace bilateral mastoid effusions. IMPRESSION: Numerous (greater than 20) heterogeneously enhancing metastatic lesions within the cerebral and cerebellar hemispheres. Dominant 3.2 cm lesion centered within the left postcentral gyrus is associated with moderately extensive perilesional edema and trace rightward midline shift. Several lesions demonstrate diffusion restriction as well as internal blood products. Dictated by Eusebio Torres MD @ 06/14/2022 2:49:16 PM (Electronically Signed)
--- NOTE | 2022-06-13 17:00 | CRLHL7_ITS ---
For Patients: As a result of the Century Cures Act, medical imaging exams and procedure reports are released immediately into your electronic medical record. You may view this report before your referring provider. If you have questions, please contact your health care provider. INDICATION: Malignant neoplasm of lung TECHNIQUE: Following IV injection of FDG with uptake of 54 minutes, noncontrast CT scan followed by a PET scan were acquired along the length of body from the head to the upper thighs. Noncontrast CT was used for anatomic localization and photon attenuation correction of the PET-CT scan. - Blood glucose level: 110. - FDG dose (mCi): 12.8. COMPARISON: CT 05/27/2022. FINDINGS: Head/Neck: Small cervical lymph nodes without significant tracer uptake, nonspecific. - Chest: Confluent subcarinal and right hilar mass which surrounds the right lower lobe bronchus associated postobstructive atelectasis. This mass measures approximately 6 x 7 cm with SUV max 28.7. There is a small right pleural effusion with areas of hypermetabolic activity, SUV max 11.9. - Background liver parenchyma with SUV mean of 3.2. 1 cm hypermetabolic right adrenal nodule with SUV max 11.5. Portacaval 1.7 cm lymph node with SUV max 23.2. There is a 1 cm left para-aortic/leslie-renal lymph node on image 156 with SUV max 25.0. There is a 5 cm left lower pole mass with intense tracer uptake, SUV max 26.6. Exophytic 1.5 cm mass in the right kidney with SUV max 18.3 and a similar mass posterior medially in the right kidney with SUV max 8.7. Additional inferolateral right exophytic mass with SUV max 28.8. - Musculoskeletal: No abnormal tracer uptake. - CT findings: Right perihilar mass, atelectasis, and small right pleural effusion as described above. Mild atherosclerotic calcification of the aorta. Colonic diverticulosis without evidence of acute diverticulitis. IMPRESSION : 1. Confluent mass in the right hilum and subcarinal region surrounding and occluding the right lower lobe bronchus concerning for malignancy. There is associated small right pleural effusion with hypermetabolic activity. 2. Large left lower pole hypermetabolic mass is concerning for malignancy, either additional primary or metastasis. Alternatively this may be the primary tumor with lung and mediastinal metastasis. 3. Left periaortic and portacaval lymph nodes concerning for metastasis. 4. Right adrenal hypermetabolic nodule concerning for metastasis. 5. Additional exophytic masses in bilateral kidneys are indeterminate, though suspicious for additional sites of metastatic disease. Dictated by Haseeb Aragon MD @ 06/14/2022 2:04:14 PM (Electronically Signed)
== END 2022-06-13 15:42 | disposition home or self-care (01) ==
LOC: MRI 15:42
PROVIDERS: PCP Family Medicine; Visit Provider Family Medicine
DX: C34.90 Malignant neoplasm of unspecified part of unspecified bronchus or lung (principal); E27.9 Disorder of adrenal gland, unspecified; J90 Pleural effusion, not elsewhere classified; N28.89 Other specified disorders of kidney and ureter; M54.12 Radiculopathy, cervical region; R29.898 Other symptoms and signs involving the musculoskeletal system; G93.9 Disorder of brain, unspecified
CPT/HCPCS: 70553; 78815; A9552; A9575

== ENCOUNTER 2022-09-30 09:24 | Outpatient (CLI) | payer BC, SELFPAY ==
--- OUTSIDE RECORDS SUMMARY | 2022-09-30 09:28 | XMS_ITS | Continuity of Care Document ---
Author Name Unknown Organization [facility] Address [address] [facility] [place] [address] Phone Care Team Providers Care Court Administrator Name Role Phone Murphy Chi Unavailable Unavailable Allergies, Adverse Reactions, Alerts Substance Reaction Status Criticality No Known Allergies Active No Inform ation Medications Medication Instructions Dosage Effective Dates (start - stop) Status Comments hydrocodone 5 mg-acetaminophen 325 mg tablet take 1 tablet by oral route every 8-12 hours as needed for chronic pain; max 6/day - Active amlodipine 5 mg tablet take 1 tablet by oral route every day 5 MG - Active atorvastatin 20 mg tablet take 1 tablet by oral route every day 20 MG - Active dexamethasone 6 mg tablet take 1 tablet by oral route every day 6 MG - Active levetiracetam 500 mg tablet take 1 tablet by oral route 2 times every day 500 MG - Active memantine 10 mg tablet take 1 tablet by oral route 2 times every day 10 MG - Active ondansetron 4 mg disintegrating tablet take 1 tablet by oral route every [address] on top of the tongue where they will dissolve, then swallow 4 MG - Active prochlorperazine maleate 10 mg tablet take 1 tablet by oral route 3 times every day 10 MG - Active levothyroxine 100 mcg capsule take 1 capsule by oral route every day 100 MCG - Active benzonatate 200 mg capsule take 1 capsule [...] hours as needed for chronic pain; max 6/day - No Longer Active Procedures Procedure Date OFFICE VISIT, EST TELEMEDICINE OFFICE VISIT, EST TELEMEDICINE OFFICE/OUTPATIENT VISIT, EST Drug Urine Toxology With Chromatography Drug test def 22+ classes OFFICE VISIT, EST TELEMEDICINE Foll-up eval q3mo opiod tx Foll-up eval [...] Urine Toxology With Chromatography INJ TRIGGER POINT, /2 MUSCL Kenalog Triamcinolone acetonide inj PT-FOCUSED HLTH [...] q3mo opiod tx OFFICE VISIT, EST TELEMEDICINE Oct-04-20 21 INJ TRIGGER POINT, 1/2 MUSCL Kenalog Triamcinolone acetonide inj Foll-up eval [...] Kenalog Triamcinolone acetonide inj INJ TRIGGER POINT, 02/18 MUSCL Foll-up eval q3mo opiod tx OFFICE/OUTPATIENT VISIT, EST Foll-up eval q3mo opiod tx OFFICE VISIT, EST TELEMEDICINE INJ FORAMEN EPIDURAL L/S BILATERAL OFFICE VISIT, EST TELEMEDICINE Foll-up eval q3mo opiod tx OFFICE VISIT, EST TELEMEDICINE Foll-up eval q3mo opiod tx OFFICE VISIT, EST TELEMEDICINE Foll-up eval q3mo opiod tx INJ TRIGGER POINT, 02/18 MUSCL Foll-up eval q3mo opiod tx OFFICE/OUTPATIENT VISIT, EST INJ FORAMEN EPIDURAL L/S BILATERAL OFFICE VISIT, EST TELEMEDICINE Foll-up eval q3mo opiod tx Foll-up eval q3mo opiod tx OFFICE VISIT, EST TELEMEDICINE Foll-up eval q3mo opiod tx OFFICE VISIT, EST TELEMEDICINE Injection Sacroiliac Left Foll-up eval q3mo opiod tx OFFICE VISIT, EST TELEMEDICINE Foll-up eval q3mo opiod tx OFFICE VISIT, EST TELEMEDICINE Drug Urine Toxology With Chromatography PT-FOCUSED HLTH RISK ASSMT OFFICE/OUTPATIENT VISIT, NEW Advance Directives Directive Yes / No Effective Date File Name No Information Encounters Encounter Description Practice Location Reason(s) For Visit Diagnoses Date Provider Providers Copied on Encounter OFFICE VISIT, EST TELEMEDICINE [facility], [address] [place], [place], [id number] , [place] tel: [phone] [facility] Neck Pain (chief complaint) Malignant neoplasm of pleuraChronic pain syndromeSacroilii tisSpinal stenosis, lumbar regionRadiculopat hy, lumbar regionMyalgia, other siteLong term (current) use of opiate analgesic 3 Kelsey Arrington. [address] [place] [address] 11 [facility] 100, [place], [id number] , [place]. tel:[phone] Referring Provider: Miles Jiménez, [address] [place], [address]. tel:[phone] OFFICE VISIT, EST TELEMEDICINE [facility], [address] [place], [place], [id number] , [place] [phone] [facility] Neck Pain (chief complaint) Chronic pain syndromeSacroilii tisSpinal stenosis, lumbar regionRadiculopat hy, lumbar regionMyalgia, other siteLong term (current) use of opiate analgesicMalignan t neoplasm of pleura 3 Kelsey Arrington. [address] [facility] [address], [place], [id number] , [place]. [phone] Referring Provider: Miles Jiménez, [address] [place] [address], [address]. tel:[phone] OFFICE/OUTPAT IENT VISIT, EST [facility], [address] [place] [address], [id number] , [place] tel:[phone] [facility] low back pain (chief complaint) Chronic pain syndromeSacroilii tisSpinal stenosis, lumbar regionRadiculopat hy, lumbar regionMyalgia, other siteLong term (current) use of opiate analgesicMalignan t neoplasm of pleuraEncounter for therapeutic drug level monitoring 3 Kelsey Arrington. [address] [place] [address] 100, [place], [place], [id number] , [place]. tel:[phone] Referring Provider: Miles Jiménez, [address] [place] [address], [address]. [phone] [facility], [address] [place] [address], [id number] , [place] tel:[phone] [facility] No Information 3 Colehina Arrington. [address] [place] [address] 100, [place], [place], [id number] , [place]. tel:[phone] OFFICE VISIT, EST TELEMEDICINE [facility], [address] [place] [address], [id number] , [place] tel:[phone] [facility] low back pain (chief complaint) Chronic pain syndromeSacroilii tisSpinal stenosis, lumbar regionRadiculopat hy, lumbar regionMyalgia, other siteLong term (current) use of opiate analgesic Apr-2 3 Kelsey Arrington. [address] [place] [address] 100, [place], [place], [id number] , [place]. tel:[phone] Referring Provider: Miles Jiménez, [address] [place] [address], [address]. tel:[phone] OFFICE VISIT, EST TELEMEDICINE [facility], [address] [place] [address], [id number] , [place] tel:[phone] [facility] low back pain (chief complaint) Spinal stenosis, lumbar regionSacroiliiti sMyalgia, other siteRadiculopathy , lumbar regionLong term (current) use of opiate analgesicChronic pain syndrome Apr- 3 Jenny Campos. [address] [place] [address], [id number] , [place]. tel:[phone] Referring Provider: Miles Jiménez, [address] [place] [address], [address]. tel:[phone] OFFICE/OUTPAT IENT VISIT, EST [facility], [address] [place] [address], [id number] , [place] tel:[phone] [facility] low back pain (chief complaint) SacroiliitisSpina l stenosis, lumbar regionRadiculopat hy, lumbar regionMyalgia, other siteLong term (current) use of opiate analgesic Apr-0 3 Kelsey Arrington. [address] [place] [address] [address], [place], [place], [id number] , [place]. tel: [phone] Referring Provider: Miles Jiménez, [address] [place] [address], [address]. tel:[phone] [facility], [address] [place] [address], [id number] , [place] tel: [phone] [facility] No Information 3 Kelsey Arrington. [address] [place] [address] [address], [place], [place], [id number] , [place]. tel:[phone] [facility], [address] [place] [address], [id number] , [place] tel:[phone] [facility] Sacroiliitis, not elsewhere classified 3 Krissy Aquino. [address] [place] [address], [id number] , [place]. tel:[phone] Referring Provider: Miles Jiménez, [address] [place] [address], [address]. tel:[phone] OFFICE VISIT, EST TELEMEDICINE [facility], [address] [place], [place], [id number] , [place] [phone] [facility] low back pain (chief complaint) SacroiliitisSpina l stenosis, lumbar regionRadiculopat hy, lumbar regionMyalgia, other siteLong term (current) use of opiate analgesic 0 3 Colehina Arrington. [address] [place] [address] 100, [place], [place], [id number] , [place]. tel:[phone] OFFICE VISIT, [facility], [address] [place], [place], [id number] , [place] tel:[phone] [facility] low back pain (chief complaint) SacroiliitisSpina l stenosis, lumbar regionRadiculopat hy, lumbar regionMyalgia, other siteLong term (current) use of opiate analgesic 2 Kelsey Arrington. [address] [place] [address] 100, [place], [id number] , [place]. [phone] [facility], [address] [place] [address], [id number] , [place] tel:[phone] [facility] No Information 2 Kelsey Arrington. [address] [place] [address] 11 [facility] 100, [place], [place], [id number] , [place]. [phone] Referring Provider: Miles Jiménez, [address] [place], [address]. tel:[phone] OFFICE/OUTPAT IENT VISIT, [facility], [address] [place] [address], [id number] , [place] tel:[phone] [facility] low back pain (chief complaint) SacroiliitisSpina l stenosis, lumbar regionRadiculopat hy, lumbar regionMyalgia, other siteLong term (current) use of opiate analgesicEncounte r for therapeutic drug level monitoring 2 Kelsey Arrington. [address] [place] [address] [address], [place], [id number] , [place]. tel:[phone] Referring Provider: Miles Jiménez, [address] [place] [address], [address]. [phone] OFFICE VISIT, EST TELEMEDICINE [facility], [address] [place] [address], [id number] , [place] tel: [phone] [facility] low back pain (chief complaint) SacroiliitisSpina l stenosis, lumbar regionRadiculopat hy, lumbar regionMyalgia, other siteLong term (current) use of opiate analgesic Oct-3 2 Kelsey Arrington. [address] [place] [address] [address], [place], [place], [id number] , [place]. tel:[phone] [facility], [address] [place] [address], [id number] , [place] tel:[phone] [facility] Sacroiliitis, not elsewhere classified Sep-3 0- 2 Blakely Liam. [facility], [address] [facility] [address], [place], [address], [place]. tel: [phone] Referring Provider: Miles Jiménez, [address] [place] [address], [address]. tel:[phone] OFFICE VISIT, EST TELEMEDICINE [facility], [address] [place] [address], [id number] , [place] tel:[phone] [facility] low back pain (chief complaint) SacroiliitisSpina l stenosis, lumbar regionRadiculopat hy, lumbar regionMyalgia, other siteLong term (current) use of opiate analgesic Sep-2 2 Kelsey Arrington. [address] [place] [address] [address], [place], [id number] , [place]. tel:[phone] Referring Provider: Miles Jiménez, [address] [place] [address], [address]. [phone] [facility], [address] [place] [address], [id number] , [place] tel:[phone] [facility] No Information 2 Kelsey Arrington. [address] [place] [address] [address], [place], [place], [id number] , [place]. tel:[phone] Referring Provider: Miles Jiménez, [address] [place] [address], [address]. [phone] OFFICE/OUTPAT IENT VISIT, [facility], [address] [place] [address], [id number] , [place] tel:[phone] [facility] low back pain (chief complaint) SacroiliitisSpina l stenosis, lumbar regionRadiculopat hy, lumbar regionMyalgia, other siteLong term (current) use of opiate analgesic 2 Kelsey Arrington. [address] [place] [address] [address], [place], [place], [id number] , [place]. tel:[phone] Referring Provider: Miles Jiménez, [address] [place] [address], [address]. [phone] OFFICE VISIT, [facility] TELEMEDICINE [facility], [address] [place] [address], [id number] , [place] tel:[phone] [facility] Back Pain (chief complaint) SacroiliitisSpina l stenosis, lumbar regionRadiculopat hy, lumbar regionMyalgia, other siteLong term (current) use of opiate analgesic 2 Kelsey Arrington. [address] [place] [address] [address], [place], [place], [id number] , [place]. tel: [phone] OFFICE VISIT, [facility] TELEMEDICINE [facility], [address] [place] [address], [id number] , [place] tel:[phone] [facility] Back Pain (chief complaint) SacroiliitisSpina l stenosis, lumbar regionRadiculopat hy, lumbar regionMyalgia, other siteLong term (current) use of opiate analgesic 2 Kelsey Arrington. [address] [place] [address] [address], [place], [id number] , [place]. tel:[phone] [facility], [address] [place] [address], [id number] , [place] tel:[phone] [facility] Sacroiliitis, not elsewhere classified 2 Eleazar Jackson. [address] [place], [place], [id number] , [place]. tel:[phone] Referring Provider: Miles Jiménez, [address] [place] [address], [address]. [phone] OFFICE VISIT, EST TELEMEDICINE [facility], [address] [place] [address], [id number] , [place] tel:[phone] [facility] Back Pain (chief complaint) SacroiliitisSpina l stenosis, lumbar regionRadiculopat hy, lumbar regionMyalgia, other siteLong term (current) use of opiate analgesic 2 Kelsey Arrington. [address] [place] [address] [address], [place], [id number] , [place]. tel:[phone] Referring Provider: Miles Jiménez, [address] [place] [address], [address]. [phone] OFFICE VISIT, EST TELEMEDICINE [facility], [address] [place] [address], [id number] , [place] tel:[phone] [facility] Back Pain (chief complaint) SacroiliitisSpina l stenosis, lumbar regionRadiculopat hy, lumbar regionMyalgia, other siteLong term (current) use of opiate analgesic 2 Kelsey Arrington. [address] [place] [address] [address], [place], [id number] , [place]. tel: [phone] [facility], [address] [place] [address], [id number] , [place] tel: [phone] [facility] No Information 2 Kelsey Arrington. [address] [facility] [address], [place], [id number] , [place]. tel: [phone] OFFICE/OUTPAT IENT VISIT, [facility], [address] [place] [address], [id number] , [place] tel: [phone] [facility] Back Pain (chief complaint) Myalgia, other siteSacroiliitisS lester stenosis, lumbar regionRadiculopat hy, lumbar regionLong term (current) use of opiate analgesicEncounte r for screening for other disorderEncounter for therapeutic drug level monitoring 2 Colehina Arrington. [address] [place] [address] [address], [place], [place], [id number] , [place]. tel: [phone] Referring Provider: Miles Jiménez, [address] [place] [address], [address]. [phone] OFFICE VISIT, [facility], [address] [place] [address], [id number] , [place] tel: [phone] [facility] No Information 2 Cole Murphy. [address] [place] [address] [address], [place], [place], [id number] , [place]. tel:[phone] Referring Provider: Miles Jiménez, [address] [place] [address], [address]. [phone] OFFICE VISIT, [facility], [address] [place] [address], [id number] , [place] tel: [phone] [facility] Back Pain (chief complaint) Radiculopathy, lumbar regionSacroiliiti sSpinal stenosis, lumbar regionMyalgia, other siteLong term (current) use of opiate analgesic 2 Cole Murphy. [address] [place] [address] [address], [facility] [place], [id number] , [place]. tel: [phone] OFFICE VISIT, EST TELEMEDICINE [facility], [address] [place] [address], [id number] , [place] tel: [phone] [facility] Back Pain (chief complaint) Radiculopathy, lumbar regionSacroiliiti sSpinal stenosis, lumbar regionMyalgia, other siteLong term (current) use of opiate analgesic Dec-2 1 Colehina Arrington. [address] [place] [address] [address], [place], [place], [id number] , [place]. tel: [phone] [facility], [address] [place] [address], [id number] , [place] tel: [phone] [facility] Sacroiliitis Dec-0 1 Eleazar Jackson. [address] [place] [address], [id number] , [place]. tel: [phone] Referring Provider: Miles Jiménez, [address] [place] [address], [address]. tel:[phone] OFFICE VISIT, EST TELEMEDICINE [facility], [address] [place] [address], [id number] , [place] tel: [phone] [facility] Back Pain (chief complaint) Radiculopathy, lumbar regionSpinal stenosis, lumbar regionSacroiliiti sMyalgia, other siteLong term (current) use of opiate analgesic Dec-0 1 Cole Murphy. [address] [place] [address] 11 [facility] 100, [place], [place], [id number] , [place]. tel: [phone] Referring Provider: Miles Jiménez, [address] [place] [address], [address]. tel:[phone] OFFICE VISIT, EST TELEMEDICINE [facility], [address] [place] [address], [id number] , [place] tel: [phone] [facility] Back Pain (chief complaint) Radiculopathy, lumbar regionSpinal stenosis, lumbar regionSacroiliiti sMyalgia, other siteLong term (current) use of opiate analgesic Nov-0 1 Colehina Arrington. [address] [place] [address] [address], [place], [place], [id number] , [place]. tel: [phone] OFFICE VISIT, EST TELEMEDICINE [facility], [address] [place] [address], [id number] , [place] tel:[phone] [facility] Back Pain (chief complaint) Myalgia, other siteSacroiliitisR adiculopathy, lumbar regionSpinal stenosis, lumbar regionLong term (current) use of opiate analgesic Oct-0 1 Kelsey Arrington. [address] [place] [address] [address], [place], [place], [id number] , [place]. tel:[phone] Referring Provider: Miles Jiménez, [address] [place] [address], [address]. [phone] [facility], [address] [place] [address], [id number] , [place] tel:[phone] [facility] Myalgia, other site Sep-1 1 Kelsey Arrington. [address] [place] [address] [address], [place], [place], [id number] , [place]. tel:[phone] Referring Provider: Miles Jiménez, [address] [place] [address], [address]. tel:[phone] OFFICE VISIT, EST TELEMEDICINE [facility], [address] [place] [address], [id number] , [place] tel:[phone] [facility] Back Pain (chief complaint) SacroiliitisRadic ulopathy, lumbar regionSpinal stenosis, lumbar regionLong term (current) use of opiate analgesicMyalgia, other site Sep-0 1 Cole Murphy. [address] [place] [address] [address], [place], [place], [id number] , [place]. tel:[phone] Referring Provider: Miles Jiménez, [address] [place] [address], [address]. tel:[phone] OFFICE VISIT, EST TELEMEDICINE [facility], [address] [place] [address], [id number] , [place] tel:[phone] [facility] Back Pain (chief complaint) SacroiliitisRadic ulopathy, lumbar regionSpinal stenosis, lumbar regionLong term (current) use of opiate analgesicMyalgia, other site 1 Kelsey Arrington. [address] [place] [address] [address], [place], [place], [id number] , [place]. tel:[phone] Referring Provider: Miles Jiménez, [address] [place] [address], [address]. [phone] OFFICE VISIT, EST TELEMEDICINE [facility], [address] [place] [address], [id number] , [place] tel:[phone] [facility] Back Pain (chief complaint) SacroiliitisRadic ulopathy, lumbar regionSpinal stenosis, lumbar regionLong term (current) use of opiate analgesicMyalgia, other site 1 Kelsey Arrington. [address] [place] [address] [address], [place], [place], [id number] , [place]. tel:[phone] Referring Provider: Miles Jiménez, [address] [place] [address], [address]. [phone] OFFICE VISIT, EST TELEMEDICINE [facility], [address] [place] [address], [id number] , [place] tel:[phone] [facility] Back Pain (chief complaint) SacroiliitisRadic ulopathy, lumbar regionSpinal stenosis, lumbar regionLong term (current) use of opiate analgesicMyalgia, other site 1 Kelsey Arrington. [address] [place] [address] [address], [place], [place], [id number] , [place]. tel:[phone] Referring Provider: Miles Jiménez, [address] [place] [address], [address]. [phone] OFFICE VISIT, EST TELEMEDICINE [facility], [address] [place] [address], [id number] , [place] tel:[phone] [facility] Back Pain (chief complaint) SacroiliitisRadic ulopathy, lumbar regionSpinal stenosis, lumbar regionLong term (current) use of opiate analgesicMyalgia, other site 1 Kelsey Arrington. [address] [place] [address] [address], [place], [place], [id number] , [place]. [phone] Referring Provider: Miles Jiménez, [address] [place] [address], [address]. tel:[phone] [facility], [address] [place] [address], [id number] , [place] [phone] [facility] Sacroiliitis Apr-2 1 Eleazar Jackson. [address] [place] [address], [id number] , [place]. [phone] Referring Provider: Miles Jimnéez, [address] [place] [address], [address]. tel:[phone] OFFICE VISIT, EST TELEMEDICINE [facility], [address] [place] [address], [id number] , [place] tel:[phone] [facility] Back Pain (chief complaint) Radiculopathy, lumbar regionSpinal stenosis, lumbar regionLong term (current) use of opiate analgesicMyalgia, other siteSacroiliitis Apr-0 1 Kelsey Arrington. [address] [place] [address] [address], [place], [place], [id number] , [place]. tel:[phone] Referring Provider: Miles Jiménez, [address] [place] [address], [address]. tel:[phone] OFFICE VISIT, EST TELEMEDICINE [facility], [address] [place] [address], [id number] , [place] [phone] [facility] Back Pain (chief complaint) Radiculopathy, lumbar regionSpinal stenosis, lumbar regionLong term (current) use of opiate analgesicMyalgia, other siteSacroiliitis Apr-0 1 Kelsey Arrington. [address] [place] [address] [address], [place], [place], [id number] , [place]. [phone] Referring Provider: Miles Jiménez, [address] [place] [address], [address]. tel:[phone] OFFICE VISIT, EST TELEMEDICINE [facility], [address] [place], [place], [id number] , [place] tel: [phone] [facility] Back Pain (chief complaint) Radiculopathy, lumbar regionSpinal stenosis, lumbar regionLong term (current) use of opiate analgesicSacroili itisMyalgia, other site 1 Kelsey Arrington. [address] [facility] [address], [place], [place], [id number] , [place]. tel: [phone] Referring Provider: Miles Jiménez, [address] [place] [address], [address]. tel:[phone] [facility], [address] [place] [address], [id number] , [place] tel: [phone] [facility] No Information 1 Kelsey Arrington. [facility] [address], [place], [place], [id number] , [place]. tel: [phone] OFFICE/OUTPAT IENT VISIT, EST [facility], [address] [place] [address], [id number] , [place] tel: [phone] [facility] Back Pain (chief complaint) Radiculopathy, lumbar regionSpinal stenosis, lumbar regionLong term (current) use of opiate analgesicSacroili itisMyalgia, other site 1 Kelsey Arrington. [facility] [address], [place], [place], [id number] , [place]. tel: [phone] Referring Provider: Miles Jiménez, [address] [place] [address], [address]. tel:[phone] OFFICE VISIT, EST TELEMEDICINE [facility], [address] [place] [address], [id number] , [place] tel: [phone] [facility] Back Pain (chief complaint) Radiculopathy, lumbar regionSpinal stenosis, lumbar regionLong term (current) use of opiate analgesicSacroili itisMyalgia, other site 0 Cole Murphy. [address] [place] [address] [address], [place], [place], [id number] , [place]. [phone] Referring Provider: Miles Jiménez, [address] [place] [address], [address]. tel:[phone] [facility], [address] [place] [address], [id number] , [place] tel:[phone] [facility] Radiculopathy, lumbar region 0 Reddy Wheeler. [facility], [address], [place], [address], [place]. tel:[phone] Referring Provider: Miles Jiménez, [address] [place] [address], [address]. tel:[phone] OFFICE VISIT, EST TELEMEDICINE [facility], [address] [place] [address], [id number] , [place] [phone] [facility] Back Pain (chief complaint) Radiculopathy, lumbar regionSpinal stenosis, lumbar regionLong term (current) use of opiate analgesicSacroili itisMyalgia, other site 0 Kelsey Arrington. [address] [place] [address] [address], [place], [place], [id number] , [place]. [phone] Referring Provider: Miles Jiménez, [address] [place] [address], [address]. tel:[phone] OFFICE VISIT, EST TELEMEDICINE [facility], [address] [place] [address], [id number] , [place] [phone] [facility] Back Pain (chief complaint) Radiculopathy, lumbar regionSpinal stenosis, lumbar regionLong term (current) use of opiate analgesicSacroili itisMyalgia, other site 0 Kelsey Arrington. [address] [place] [address] [address], [place], [place], [id number] , [place]. tel:[phone] Referring Provider: Miles Jiménez, [address] [place] [address], [address]. tel:[phone] OFFICE VISIT, EST TELEMEDICINE [facility], [address] [place] [address], [id number] , [place] tel:[phone] [facility] Back Pain (chief complaint) Radiculopathy, lumbar regionSpinal stenosis, lumbar regionLong term (current) use of opiate analgesicSacroili itisMyalgia, other site Oct- 0 Kelsey Arrington. [address] [place] [address] [address], [place], [place], [id number] , [place]. tel:[phone] Referring Provider: Miles Jiménez, [address] [place] [address], [address]. [phone] OFFICE/OUTPAT IENT VISIT, [facility], [address] [place] [address], [id number] , [place] tel:[phone] [facility] Back Pain (chief complaint) Radiculopathy, lumbar regionSpinal stenosis, lumbar regionLong term (current) use of opiate analgesicSacroili itisMyalgia, other site 0 Kelsey Hayesel. [address] [place] [address] [address], [place], [place], [id number] , [place]. [phone] Referring Provider: Miles Jiménez, [address] [place] [address], [address]. [phone] [facility], [address] [place] [address], [id number] , [place] tel:[phone] [facility] Radiculopathy, lumbar region Aug- 0 Nava Campos. [address] [place] [address], [id number] , [place]. [phone] Referring Provider: Miles Jiménez, [address] [place] [address], [address]. [phone] OFFICE VISIT, EST TELEMEDICINE [facility], [address] [place] [address], [id number] , [place] [phone] [facility] Back Pain (chief complaint) Radiculopathy, lumbar regionSpinal stenosis, lumbar regionLong term (current) use of opiate analgesicSacroili itis 0 Cole Murphy. [address] [place] [address] [address], [place], [place], [id number] , [place]. tel: [phone] Referring Provider: Miles Jiménez, [address] [place] [address], [address]. tel:[phone] [facility], [address] [place] [address], [id number] , [place] tel: [phone] [facility] Radiculopathy, lumbar region 0 Cole Murphy. [address] [place] [address] [address], [place], [place], [id number] , [place]. tel: [phone] OFFICE VISIT, EST TELEMEDICINE [facility], [address] [place] [address], [id number] , [place] tel: [phone] [facility] Back Pain (chief complaint) Radiculopathy, lumbar regionSpinal stenosis, lumbar regionLong term (current) use of opiate analgesicSacroili itis 0 Cole Murphy. [address] [place] [address] [address], [place], [place], [id number] , [place]. tel: [phone] Referring Provider: Miles Jiménez, [address] [place] [address], [address]. tel:[phone] OFFICE VISIT, EST TELEMEDICINE [facility], [address] [place] [address], [id number] , [place] tel: [phone] [facility] Back Pain (chief complaint) Low back painChronic pain syndromeRadiculop athy, lumbar regionSpinal stenosis, lumbar regionLong term (current) use of opiate analgesic 0 Colehina Arrington. [address] [place] [address] [address], [place], [place], [id number] , [place]. tel: [phone] [facility], [address] [place] [address], [id number] , [place] tel:[phone] [facility] Low back pain June- 0 Will Miles. [address] [place] [address], [id number] , [place]. [phone] Referring Provider: Miles Jiménez, [address] [place] [address], [address]. tel:[phone] OFFICE VISIT, EST TELEMEDICINE [facility], [address] [place] [address], [id number] , [place] [phone] [facility] Back Pain (chief complaint) Chronic pain syndromeRadiculop athy, lumbar regionSpinal stenosis, lumbar regionLong term (current) use of opiate analgesic Apr- 0- 0 Kelsey Arrington. [address] [place] [address] [address], [place], [place], [id number] , [place]. [phone] Referring Provider: Miles Jiménez, [address] [place] [address], [address]. tel:[phone] OFFICE VISIT, EST [facility], [address] [place] [address], [id number] , [place] [phone] [facility] Back Pain (chief complaint) Chronic pain syndromeRadiculop athy, lumbar regionSpinal stenosis, lumbar regionLong term (current) use of opiate analgesicLow back pain Apr- 0 Kelsey Arrington. [address] [place] [address] [address], [place], [place], [id number] , [place]. [phone] Referring Provider: Miles Jiménez, [address] [place] [address], [address]. tel:[phone] OFFICE/OUTPAT IENT VISIT, [facility], [address] [place] [address], [id number] , [place] [phone] [facility] Back Pain (chief complaint) Chronic pain syndromeOther intervertebral disc degeneration, lumbar regionRadiculopat hy, lumbar regionSpinal stenosis, lumbar regionEncounter for therapeutic drug level monitoringLong term (current) use of opiate analgesic Apr-0 - 0 Colekayla Arrington. [address], [place], [id number] , [place]. [phone] Referring Provider: Abdifatah Henry, [facility] [address], [place], [address]. tel:[phone] Family History Family Member Type Diagnosis Age At Onset No Information Payers Payer name Insurance type Covered republican ID Authoriza tion(s) Ariel Garnica [id number] Social History Type Description Quantity Date Captured Comments Alcohol Use Details No Caffeine Use Details Unknown Tobacco Use Status Occasional cigarette smoker Smoking Status Light tobacco smoker Sex Female Chief Complaint And Reason For Visit From encounter dated '09/13/2022 10:45'. Neck Pain (chief complaint). Description: The severity of the problem is 6/10. Duration: chronic. The problem has not changed. The frequency of pain is constant. Reason For Referral Reason For Referral No Information Plan Of Treatment Date Type Action Status Goal Tobacco Use. Due on 023 due Goal Zoster vaccine (1st). Due on due Goal Update Social History. Due o n due Goal Order Annual PT. Due on due Goal HPV. Due on due Goal CT-Colonography. Due on due Goal Lipid panel. Due on 023 due Goal Review Allergy List. Due on due Goal Hepatitis C screening. Due o n due Goal Medication Recon ciliation. Due on due Goal PHQ-9. Due on du e Goal Unhealthy drug u se screening. Due on due Goal ALT (SGPT). Due on due Goal FIT. Due on due Goal Creatinine. Due on due Goal SPECIAL PROCEDURES NURSE Scanned. 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 Due on due Goal OARS. Due on due Goal AST (SGOT). Due on due Goal UDT. Due on due Goal Weight. Due on d ue Goal FIT-DNA. Due on due Goal Height. Due on d ue Goal UDT. Due on due Goal AST (SGOT). Due on due Goal Unhealthy drug u se screening. Due on due Goal Update Social History. Due o n due Goal Review Allergy List. Due on due Goal Creatinine. Due on due Goal PHQ-9. Due on du e Goal Zoster vaccine (1st). Due on due Goal Medication Recon ciliation. Due on due Goal FIT-DNA. 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 Due on due Goal SPECIAL PROCEDURES NURSE Scanned. Due on due Goal OARS. Due on due Goal HPV. Due on due Goal Height. Due on d ue Goal ALT (SGPT). Due on due Goal Hepatitis C screening. Due o n due Goal Lipid panel. Due on due Goal Order Annual PT. Due on due Goal Tobacco Use. Due on due Goal FIT. Due on due Goal CT-Colonography. Due on due Goal Weight. Due on d ue Goal PHQ-9. Due on du e Goal Lipid panel. Due on due Goal FIT. Due on due Goal Height. Due on d ue Goal SPECIAL PROCEDURES NURSE Scanned. Due on due Goal Medication Recon ciliation. Due on due Goal Unhealthy drug u se screening. Due on due Goal Weight. Due on d ue Goal Creatinine. Due on due Goal AST (SGOT). Due on due Goal Order Annual PT. Due on due Goal Zoster vaccine (1st). Due on due Goal Review Allergy List. Due on due Goal Tobacco Use. Due on due Goal HPV. Due on due Goal Update Social History. Due o n due Goal CT-Colonography. Due on due Goal UDT. Due on due Goal OARS. Due on due Goal ALT (SGPT). Due on due Goal Hepatitis C screening. Due o n due Goal KNITTED GARMENT FINISHER Paperwork. Due on due Goal FIT-DNA. Due on due Goal Order Annual PT. Due on due Goal OARS. Due on due Goal ALT (SGPT). Due on due Goal Lipid panel. Due on 023 due Goal Zoster vaccine (1st). 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 Due on due Goal HPV. Due on due Goal UDT. Due on due Goal AST (SGOT). Due on due Goal Creatinine. Due on due Goal Medication Recon ciliation. Due on due Goal SPECIAL PROCEDURES NURSE Scanned. Due on 023 due Goal Height. Due on d ue Goal FIT. Due on due Goal Weight. Due on d ue Goal Update Social History. Due o n due Goal Hepatitis C screening. Due o n due Goal FIT-DNA. Due on due Goal Tobacco Use. Due on due Goal Unhealthy drug u se screening. Due on due Goal PHQ-9. Due on du e Goal CT-Colonography. Due on due Goal Review Allergy List. Due on due Goal Review Allergy List. Due on due Goal FIT. Due on due Goal Weight. Due on d ue Goal Creatinine. Due on due Goal PHQ-9. Due on du e Goal Medication Recon ciliation. Due on due Goal Unhealthy drug u se screening. Due on due Goal OARS. Due on due Goal FIT-DNA. 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 Due on due Goal Update Social History. Due o n due Goal ALT (SGPT). Due on due Goal AST (SGOT). Due on due Goal UDT. Due on due Goal Hepatitis C screening. Due o n due Goal CT-Colonography. Due on due Goal Order Annual PT. Due on due Goal HPV. Due on due Goal Tobacco Use. Due on due Goal Height. Due on d ue Goal Zoster vaccine (1st). Due on due Goal Lipid panel. Due on due Goal SPECIAL PROCEDURES NURSE Scanned. Due on due Goal UDT. Due on due Goal Order Annual PT. Due on due Goal ALT (SGPT). Due on due Goal OARS. Due on due Goal SPECIAL PROCEDURES NURSE Scanned. Due on due Goal Creatinine. 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 Due on due Goal Weight. Due on d ue Goal FIT. Due on due Goal PHQ-9. Due on du e Goal AST (SGOT). Due on due Goal Review Allergy List. Due on due Goal Hepatitis C screening. Due o n due Goal Height. Due on d ue Goal Update Social History. Due o n due Goal Medication Recon ciliation. Due on due Goal FIT-DNA. Due on due Goal Zoster vaccine (1st). Due on due Goal Tobacco Use. Due on due Goal CT-Colonography. Due on due Goal Lipid panel. Due on due Goal HPV. Due on due Goal Unhealthy drug u se screening. Due on due Goal Order Annual PT. Due on due Goal Height. Due on d ue Goal Tobacco Use. Due on due Goal Medication Recon ciliation. Due on due Goal UDT. Due on due Goal ALT (SGPT). Due on due Goal Creatinine. Due on due Goal SPECIAL PROCEDURES NURSE Scanned. Due on due Goal AST (SGOT). Due on due Goal Zoster vaccine (1st). Due on due Goal PHQ-9. Due on du e Goal Lipid panel. Due on due Goal CT-Colonography. Due on due Goal Hepatitis C screening. Due o n due Goal Review Allergy List. Due on due Goal FIT. Due on due Goal OARS. Due on due Goal Unhealthy drug u se screening. Due on due Goal Weight. Due on d ue Goal KNITTED GARMENT FINISHER Paperwork. Due on due Goal FIT-DNA. Due on due Goal Update Social History. Due o n due Goal HPV. Due on due Goal FIT-DNA. Due on due Goal UDT. Due on due Goal Weight. Due on d ue Goal Tobacco Use. Due on due Goal Review Allergy List. Due on due Goal Creatinine. Due on due Goal Hepatitis C screening. Due o n due Goal SPECIAL PROCEDURES NURSE Scanned. Due on due Goal Medication Recon ciliation. Due on due Goal FIT. Due on due Goal PHQ-9. Due on du e Goal ALT (SGPT). Due on due Goal AST (SGOT). Due on due Goal Order Annual PT. Due on due Goal OARS. 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 Due on due Goal HPV. Due on due Goal CT-Colonography. Due on due Goal Zoster vaccine (1st). Due on due Goal Height. Due on d ue Goal Update Social History. Due o n due Goal Unhealthy drug u se screening. Due on due Goal Lipid panel. Due on due Goal ALT (SGPT). 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 Due on due Goal AST (SGOT). Due on due Goal UDT. Due on due Goal Medication Recon ciliation. Due on due Goal Review Allergy List. Due on due Goal PHQ-9. Due on du e Goal FIT. Due on due Goal FIT-DNA. Due on due Goal OARS. Due on due Goal Hepatitis C screening. Due o n due Goal Tobacco Use. Due on 023 due Goal Weight. Due on d ue Goal Order Annual PT. Due on due Goal Update Social History. Due o n due Goal Creatinine. Due on due Goal HPV. Due on due Goal Zoster vaccine (1st). Due on due Goal Lipid panel. Due on 023 due Goal Unhealthy drug u se screening. Due on due Goal Height. Due on d ue Goal CT-Colonography. Due on due Goal SPECIAL PROCEDURES NURSE Scanned. Due on 023 due Goal HPV. Due on due Goal Height. Due on d ue Goal Weight. Due on d ue Goal Creatinine. Due on due Goal CT-Colonography. Due on due Goal Update Social History. Due o n due Goal Order Annual PT. Due on due Goal Review Allergy List. Due on due Goal Unhealthy drug u se screening. Due on due Goal Tobacco Use. Due on due Goal FIT-DNA. Due on due Goal Hepatitis C screening. Due o n due Goal Medication Recon ciliation. Due on due Goal Zoster vaccine (1st). Due on due Goal UDT. Due on due Goal Lipid panel. Due on due Goal ALT (SGPT). Due on due Goal AST (SGOT). 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 Due on due Goal PHQ-9. Due on du e Goal SPECIAL PROCEDURES NURSE Scanned. Due on due Goal OARS. Due on due Goal FIT. Due on due Goal FIT-DNA. Due on due Goal AST (SGOT). Due on due Goal ALT (SGPT). Due on due Goal Creatinine. Due on due Goal OARS. 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 Due on due Goal Weight. Due on d ue Goal UDT. Due on due Goal Zoster vaccine (1st). Due on due Goal SPECIAL PROCEDURES NURSE Scanned. Due on due Goal Lipid panel. Due on due Goal Unhealthy drug u se screening. Due on due Goal Order Annual PT. Due on due Goal FIT. Due on due Goal PHQ-9. Due on du e Goal Medication Recon ciliation. Due on due Goal HPV. Due on due Goal Review Allergy List. Due on due Goal Update Social History. Due o n due Goal Height. Due on d ue Goal CT-Colonography. Due on due Goal Hepatitis C screening. Due o n due Goal Tobacco Use. Due on due Goal Medication Recon ciliation. Due on due Goal PHQ-9. Due on du e Goal Tobacco Use. Due on due Goal Hepatitis C screening. Due o n due Goal CT-Colonography. Due on due Goal Height. Due on d ue Goal FIT. Due on due Goal Review Allergy List. Due on due Goal HPV. Due on due Goal FIT-DNA. Due on due Goal Lipid panel. Due on due Goal Unhealthy drug u se screening. Due on due Goal Zoster vaccine (1st). Due on due Goal Weight. Due on d ue Goal OARS. Due on due Goal AST (SGOT). Due on due Goal ALT (SGPT). Due on due Goal Order Annual PT. Due on due Goal SPECIAL PROCEDURES NURSE Scanned. Due on due Goal UDT. Due on due Goal Creatinine. Due on due Goal Update Social History. Due o n due Goal KNITTED GARMENT FINISHER Paperwork. Due on due Goal OARS. Due on due Goal Order Annual PT. Due on due Goal Tobacco Use. Due on due Goal Unhealthy drug u se screening. Due on due Goal FIT. Due on due Goal Medication Recon ciliation. Due on due Goal Hepatitis C screening. Due o n due Goal CT-Colonography. Due on due Goal HPV. Due on due Goal Review Allergy List. Due on due Goal Zoster vaccine (1st). Due on due Goal FIT-DNA. Due on due Goal PHQ-9. Due on du e Goal UDT. Due on due Goal Lipid panel. Due on due Goal AST (SGOT). Due on due Goal Update Social History. Due o n due Goal Height. Due on d ue Goal SPECIAL PROCEDURES NURSE Scanned. Due on due Goal Weight. Due on d ue Goal ALT (SGPT). Due on due Goal Creatinine. 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 Due on due Goal Medication Recon ciliation. Due on due Goal Update Social History. Due o n due Goal Unhealthy drug u se screening. Due on due Goal SPECIAL PROCEDURES NURSE Scanned. Due on due Goal OARS. Due on due Goal ALT (SGPT). Due on due Goal Order Annual PT. Due on due Goal PHQ-9. Due on du e Goal Tobacco Use. Due on due Goal Creatinine. Due on due Goal FIT. Due on due Goal Hepatitis C screening. Due o n due Goal UDT. 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 Due on due Goal AST (SGOT). Due on due Goal HPV. Due on due Goal Lipid panel. Due on due Goal Height. Due on d ue Goal Zoster vaccine (1st). Due on due Goal Weight. Due on d ue Goal CT-Colonography. Due on due Goal Review Allergy List. Due on due Goal FIT-DNA. Due on due Goal Creatinine. Due on due Goal FIT-DNA. Due on due Goal UDT. Due on due Goal ALT (SGPT). Due on due Goal Order Annual PT. 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 Due on due Goal SPECIAL PROCEDURES NURSE Scanned. Due on due Goal OARS. Due on due Goal Lipid panel. Due on due Goal AST (SGOT). Due on due Goal HPV. Due on due Goal Height. Due on d ue Goal Medication Recon ciliation. Due on due Goal Zoster vaccine (1st). Due on due Goal Review Allergy List. Due on due Goal Hepatitis C screening. Due o n due Goal CT-Colonography. Due on due Goal Tobacco Use. Due on due Goal Update Social History. Due o n due Goal PHQ-9. Due on du e Goal Unhealthy drug u se screening. Due on due Goal FIT. Due on due Goal Weight. Due on d ue Goal Zoster vaccine (). 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 Due on due Goal Medication Recon ciliation. Due on due Goal Creatinine. Due on due Goal PHQ-9. Due on du e Goal Update Social History. Due o n due Goal ALT (SGPT). Due on due Goal UDT. Due on due Goal OARS. Due on due Goal CT-Colonography. Due on due Goal Review Allergy List. Due on due Goal Order Annual PT. Due on due Goal Weight. Due on d ue Goal Unhealthy drug u se screening. Due on due Goal HPV. Due on due Goal AST (SGOT). Due on due Goal Hepatitis C screening. Due o n due Goal FIT-DNA. Due on due Goal Lipid panel. Due on due Goal SPECIAL PROCEDURES NURSE Scanned. Due on due Goal Tobacco Use. Due on due Goal Height. Due on d ue Goal FIT. Due on due Goal OARS. Due on due Goal Weight. Due on d ue Goal ALT (SGPT). Due on due Goal Medication Recon ciliation. Due on due Goal Hepatitis C screening. Due o n due Goal HPV. Due on due Goal AST (SGOT). 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 Due on due Goal PHQ-9. Due on du e Goal Unhealthy drug u se screening. Due on due Goal Review Allergy List. Due on due Goal Order Annual PT. Due on due Goal Lipid panel. Due on due Goal Tobacco Use. Due on due Goal UDT. Due on due Goal Creatinine. Due on due Goal Zoster vaccine (). Due on due Goal SPECIAL PROCEDURES NURSE Scanned. Due on due Goal Height. Due on d ue Goal Update Social History. Due o n due Goal FIT. Due on due Goal CT-Colonography. Due on due Goal FIT-DNA. Due on due Goal Creatinine. Due on due Goal SPECIAL PROCEDURES NURSE Scanned. Due on due Goal OARS. Due on due Goal Order Annual PT. Due on due Goal FIT-DNA. 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 Due on due Goal AST (SGOT). Due on due Goal UDT. Due on due Goal PHQ-9. Due on du e Goal ALT (SGPT). Due on due Goal Height. Due on d ue Goal Weight. Due on d ue Goal Update Social History. Due o n due Goal Hepatitis C screening. Due o n due Goal Zoster vaccine (). Due on due Goal HPV. Due on due Goal FIT. Due on due Goal Lipid panel. Due [...] due Goal HPV. Due on due Goal OARS. Due on due Goal Update Social History. Due o n due Goal SPECIAL PROCEDURES NURSE Scanned. Due on due Goal UDT. Due on due Goal Order Annual PT. Due on due Goal Review Allergy List. Due on due Goal Creatinine. Due on due Goal ALT (SGPT). 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 Due on due Goal AST (SGOT). Due on due Goal Hepatitis C screening. Due o n due Goal PHQ-9. Due on du e Goal FIT-DNA. Due on due Goal Height. Due on d ue Goal Unhealthy drug u se screening. Due on due Goal Lipid panel. Due on due Goal CT-Colonography. Due on due Goal Weight. Due on d ue Goal Zoster vaccine (1st). Due on due Goal Update Social History. Due o n due Goal Review Allergy List. Due on due Goal Unhealthy drug u se screening. Due on due Goal FIT. Due on due Goal Height. Due on d ue Goal AST (SGOT). Due on due Goal Lipid panel. Due on due Goal Order Annual PT. Due on due Goal Weight. Due on d ue Goal SPECIAL PROCEDURES NURSE Scanned. Due on due Goal ALT (SGPT). Due on due Goal PHQ-9. Due on du e Goal CT-Colonography. Due on due Goal Creatinine. Due on due Goal Hepatitis C screening. Due o n due Goal UDT. 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 Due on due Goal Zoster vaccine (1st). Due on due Goal Medication Recon ciliation. Due on due Goal Tobacco Use. Due on due Goal FIT-DNA. Due on due Goal HPV. Due on due Goal OARS. Due on due Goal Medication Recon ciliation. Due on due Goal SPECIAL PROCEDURES NURSE Scanned. Due on due Goal PHQ-9. Due on du e Goal Update Social History. Due o n due Goal Weight. Due on d ue Goal ALT (SGPT). Due on due Goal OARS. Due on due Goal UDT. Due on due Goal AST (SGOT). Due on due Goal Order Annual PT. Due on due Goal Height. Due on d ue Goal Review Allergy List. Due on due Goal Tobacco Use. Due on due Goal Creatinine. 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 Due on due Goal AST (SGOT). Due on due Goal OARS. Due on due Goal Tobacco Use. Due on due Goal Medication Recon ciliation. Due on due Goal Height. Due on d ue Goal SPECIAL PROCEDURES NURSE Scanned. Due on due Goal Weight. Due on d ue Goal PHQ-9. Due on du e Goal Update Social History. Due o n due Goal Creatinine. Due on due Goal UDT. Due on due Goal ALT (SGPT). Due on due Goal Review Allergy List. 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 Due on due Goal Order Annual PT. Due on due Goal SPECIAL PROCEDURES NURSE Scanned. 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 Due on due Goal Height. Due on d ue Goal OARS. Due on due Goal Tobacco Use. Due on due Goal Update Social History. Due o n due Goal AST (SGOT). Due on due Goal Weight. Due on d ue Goal UDT. Due on due Goal Creatinine. Due on due Goal Medication Recon ciliation. Due on due Goal PHQ-9. Due on du e Goal Review Allergy List. Due on due Goal Order Annual PT. Due on due Goal ALT (SGPT). Due on due Goal Weight. Due on d ue Goal Creatinine. Due on due Goal AST (SGOT). 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 Due on due Goal UDT. Due on due Goal Review Allergy List. Due on due Goal Update Social History. Due o n due Goal Order Annual PT. Due on due Goal Tobacco Use. Due on due Goal Medication Recon ciliation. Due on due Goal ALT (SGPT). Due on due Goal PHQ-9. Due on du e Goal Height. Due on d ue Goal SPECIAL PROCEDURES NURSE Scanned. Due on due Goal OARS. Due on due Goal Height. Due on d ue Goal PHQ-9. Due on du e Goal KNITTED GARMENT FINISHER Paperwork. Due on due Goal Order Annual PT. Due on due Goal Tobacco Use. Due on due Goal Update Social History. Due o n due Goal OARS. Due on due Goal Weight. Due on d ue Goal SPECIAL PROCEDURES NURSE Scanned. Due on due Goal Medication Recon ciliation. Due on due Goal UDT. Due on due Goal ALT (SGPT). Due on due Goal Review Allergy List. Due on due Goal Creatinine. Due on due Goal AST (SGOT). Due on due Goal OARS. Due on due Goal UDT. 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 Due on due Goal Order Annual PT. Due on due Goal SPECIAL PROCEDURES NURSE Scanned. Due on due Goal Medication Recon ciliation. Due on due Goal Height. Due on d ue Goal Weight. Due on d ue Goal Tobacco Use. Due on due Goal Update Social History. Due o n due Goal PHQ-9. Due on du e Goal Review Allergy List. Due on due Goal Creatinine. Due on due Goal AST (SGOT). Due on due Goal ALT (SGPT). Due on due Goal Tobacco Use. Due on due Goal ALT (SGPT). Due on due Goal Creatinine. Due on due Goal OARS. Due on due Goal AST (SGOT). Due on due Goal Medication Recon ciliation. Due on due Goal UDT. Due on due Goal Order Annual PT. Due on due Goal SPECIAL PROCEDURES NURSE Scanned. Due on due Goal Weight. Due on d ue Goal Update Social History. Due o n due Goal KNITTED GARMENT FINISHER Paperwork. Due on due Goal PHQ-9. Due on du e Goal Height. Due on d ue Goal Review Allergy List. Due on due Goal Height. Due on d ue Goal Tobacco Use. Due on due Goal Update Social History. Due o n due Goal PHQ-9. Due on du e Goal AST (SGOT). Due on due Goal Review Allergy List. Due on due Goal OARS. Due on due Goal UDT. Due on due Goal Medication Recon ciliation. Due on due Goal Order Annual PT. Due on due Goal ALT (SGPT). Due on due Goal Weight. Due on d ue Goal SPECIAL PROCEDURES NURSE Scanned. 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 Due on due Goal Creatinine. 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 Due on due Goal Update Social History. Due o n due Goal UDT. Due on due Goal ALT (SGPT). Due on due Goal Medication Recon ciliation. Due on due Goal PHQ-9. Due on du e Goal Review Allergy List. Due on due Goal Creatinine. Due on due Goal Height. Due on d ue Goal Tobacco Use. Due on due Goal AST (SGOT). Due on due Goal SPECIAL PROCEDURES NURSE Scanned. Due on due Goal Order Annual PT. Due on due Goal Weight. Due on d ue Goal OARS. Due on due Goal ALT (SGPT). Due on due Goal Tobacco Use. Due on due Goal OARS. Due on due Goal Order Annual PT. Due on due Goal SPECIAL PROCEDURES NURSE Scanned. Due on due Goal Creatinine. 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 Due on due Goal Height. Due on d ue Goal UDT. Due on due Goal Weight. Due on d ue Goal Review Allergy List. Due on due Goal AST (SGOT). Due on due Goal PHQ-9. Due on du e Goal Medication Recon ciliation. Due on due Goal Update Social History. Due o n due Goal Weight. Due on d ue Goal Order Annual PT. Due on due Goal OARS. Due on due Goal Update Social History. Due o n due Goal ALT (SGPT). Due on due Goal PHQ-9. Due on du e Goal UDT. Due on due Goal Review Allergy List. 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 Due on due Goal SPECIAL PROCEDURES NURSE Scanned. Due on due Goal Medication Recon ciliation. Due on due Goal Creatinine. Due on due Goal Tobacco Use. Due on due Goal Height. Due on d ue Goal AST (SGOT). Due on due Goal AST (SGOT). Due on due Goal Creatinine. 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 Due on due Goal OARS. Due on due Goal Order Annual PT. Due on due Goal ALT (SGPT). Due on due Goal SPECIAL PROCEDURES NURSE Scanned. Due on due Goal Weight. Due on d ue Goal Medication Recon ciliation. Due on due Goal UDT. Due on due Goal Tobacco Use. Due on due Goal Update Social History. Due o n due Goal Height. Due on d ue Goal PHQ-9. Due on du e Goal Review Allergy List. Due on due Goal OARS. Due on due Goal UDT. Due on due Goal PHQ-9. Due on du e Goal Update Social History. Due o n due Goal Height. Due on d ue Goal ALT (SGPT). Due on due Goal Medication Recon ciliation. Due on due Goal Weight. Due on d ue Goal SPECIAL PROCEDURES NURSE Scanned. Due on due Goal AST (SGOT). 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 Due on due Goal Creatinine. Due on due Goal Tobacco Use. Due on due Goal Review Allergy List. Due on due Goal Order Annual PT. Due on due Goal OARS. Due on due Goal Height. Due on d ue Goal PHQ-9. Due on du e Goal AST (SGOT). Due on due Goal ALT (SGPT). Due on due Goal Medication Recon ciliation. Due on due Goal UDT. Due on due Goal Weight. Due on d ue Goal Review Allergy List. Due on due Goal Update Social History. Due o n due Goal Creatinine. Due on due Goal Tobacco Use. 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 Due on due Goal SPECIAL PROCEDURES NURSE Scanned. Due on due Goal Order Annual PT. Due on due Appointment Belkis Manjarrez BOOKED Future Order: Lab Order Drug Tara t Def 22+ Classes (G0483), Ordered on: Ordered History Of Present Illness Encounter Date Complaint History Of Prese nt Illness Comments: Belkis richardson resents virtually today for follow up and medication refill for ongoing low back pain. States lower back pain has been stable since her MADONNA. The patient's most recent symptom is that over the course of the past few days her hearing has greatly diminished. She is hopeful to receive TPIs in the near future and resume her SI joint injections. This will be on hold until she finishes her chemotherapy. She continues with chemotherapy treatment for her lung cancer, but reports she is struggling with brain fog r/t this. Last treatment completed 2 days ago. Despite this she has remained active and goes on daily walks. Reports current medication regimen provides 50-60% pain relief. Denies any side effects with current medication. Medications continue to provide pain relief and allows the patient to do everyday tasks. No other concerns today. Neck Pain The severity of the problem is 6/10. Duration: chronic. The problem has not changed. The frequency of pain is constant. Neck Pain The severity of the problem is moderate. Duration: chronic. The problem has not changed. Location of pain is lower back. Pertinent negatives include bladder incontinence. Comments: Belkis richardson resents virtually today for follow up and medication refill for ongoing low back pain. States lower back pain has been stable since her MADONNA. She continues with chemotherapy treatment for her lung cancer, but reports she is struggling with brain fog r/t this. Last treatment completed 2 days ago. Despite this she has remained active and goes on daily walks. Reports current medication regimen provides 50-60% pain relief. Denies any side effects with current medication. Medications continue to provide pain relief and allows the patient to do everyday tasks. No other concerns today. low back pain Severity level i s 5. Duration: chronic. The problem is fluctuating. It occurs persistently. The client describes the pain as an ache and sharp. Symptoms are aggravated by lifting and prolonged positioning. Symptoms are relieved by heat, ice, pain meds/drugs, stretching, walking and changing positions. Comments: Belkis bee s present today for follow up and medication refill for ongoing low back pain. States pain has been fluctuating since her MADONNA. She had a biopsy done and it revealed that she has stage 4 lung and brain cancer. She has finished a round of radiation therapy and has recently started her chemotherapy. Despite this she has remained active but has subsequently required increased pain medications, noting she has been taking about 6 tablets per day.She was previously getting TPI and SI joint injections with benefit but she is no longer able to pursue injections based on her risk of infection while on chemotherapy.Reports current medication regimen provides 50-60% pain relief. Denies any side effects with current medication. Medications continue to provide pain relief and allows the patient to do everyday tasks. No other concerns today. low back pain Severity level i s 4. Duration: chronic. The problem is stable. It occurs persistently. Location of pain is lower back. Comments: nic is present today for a virtual follow up and medication refill for ongoing low back pain. States pain has been stable since last.Primary concern today of possible lung cancer. She will be having biopsy in the near future. Reports current medication regimen provides 50-60% pain relief. Denies any side effects with current medication. Medications continue to provide pain relief and allows the patient to do everyday tasks. No other concerns today. Comments: Belkis cristal s present here today for follow up [...] of pain is lower back. Comments: Belkis p resents for a virtual follow up and [...] that she will have to travel to [place] in January for work; notes that she will also have to travel back to [place] for work as well.Current medication regimen of Riverton 5-325mg provides 50-60% pain relief for increased [...] her recent long flight.Continues to use her [place] sparingly which she notices an appreciable benefit. [...] at previous OV. Continues to use her [place] sparingly which she notices an appreciable benefit. [...] completed on August 02, 2021 at the [facility]. She is requesting to repeat injections late October as she is nervous for her 10 hour flight for a work related trip to [place]. Continues to use her [place] sparingly which she notices an appreciable benefit.Patient [...] with prescribed medication. Continues to take her River[place] sparingly. This helps her maintain her lowest [...] active recently.Of note, she is traveling to [place] soon.She reports greater than 50% relief with her medication regimen. Denies any side effects. Presents on track with prescribed medication. Continues to take her [place] sparingly. This helps her maintain her lowest [...] by heat, ice and stretching. Comments: Belkis bee s here for follow-up, [...] with prescribed medication. Continues to take her River[place] sparingly. This helps her maintain her lowest [...] ordered at previous OV.Continues to take her River[place] sparingly. This helps her maintain her lowest [...] is due to recently traveling back from [place] to [place]. She spent the winter in [place]. Her worst complaint is her left side pain. She requests repeat TPI's as well as a repeat left SI joint injection. Previous TPI's and SI joint injection provided greater than 70% relief for over three months. She also notices functional improvements with the injections.Continues to take her River[place] sparingly. This helps her maintain her lowest [...] OV. Notes she continues to benefit from Riverton and requests a refill. Of note, she has been able to enjoy her time in [place]. Reports current medication regimen provides 50-60% pain [...] prolonged positioning during her car ride to [place]. Pain has slowly been returning to baseline. Notes she continues to benefit from River[place] and requests a refill. Reports current medication [...] Of note, patient plans to travel to [place] for 3 months starting on 02/02. She looks forward to being in the warm weather so she can be more active. She inquires about how to fill her medications while she is in [place]. Reports current medication regimen provides 50-60% pain [...] and rest. Back Pain (comments) Belkis is charlaemma mooney with us today via [facility] Virtual Visit for follow up and medication [...] concerns today. Back Pain (comments) Belkis is charlaemma mooney with us today via [facility] Virtual [...] rest. Back Pain (comments) Belkis is charla alvarog with us today via [facility] Virtual Visit [...] visit. No other concerns today. Back Pain Severity [...] morning. She will monitor pain levels for usp relief.Reports current medication regimen provides 50% pain [...] SI joint injections. Dr. Henry is requesting [facility] takeover patient's pain management regimen. She would [...] mation No Information Assessments Type Assessment Date assessment Malignant neoplasm of pleura Aug impression Patient was recently diagnosed with stage 4 lung cancer. She has completed a course of radiation therapy and continues with chemotherapy. Last treatment completed 08/14/22. Currently established with [facility] and [facility]. assessment Chronic pain syndrome 3 impression Belkis is a 56yo femal e that presents to the clinic for chronic low back and bilateral SI joint pain assessment Sacroiliitis impression Chronic bilateral SI joint pain (L>R), stable since last OV. Reports 80% relief. S/p repeat LEFT SI joint injections 04/05/[address] Rey. Currently reports greater than 70% pain relief assessment Spinal stenosis, lumbar region J impression Chronic low back rosangela n, stable since last OV. Lumbar MRI report 04/05/2019 from [facility] reviewed and showed:1. L5-S1 advanced disc degeneration with severe left foraminal stenosis.2. L4-5 2mm spondylolisthesis with mild central canal stenosis, facet arthopathy and moderate denerative disc disease.3. L3-4 moderate degenerative disc disease assessment Radiculopathy, lumbar region Aug impression Chronic low back rosangela n, stable since last OV. Notes cold weather aggravates her pain. Notes of occasional radiating sx down LLE. Underwent PT in the past and continues home exercises with benefit. Denies recent flares or new concerns.BL L5-S1 TFESI on 01/19/[address] Jose provided more than 50% relief assessment Myalgia, other site impression Ongoing muscle spasms. TPIs have been beneficial in the past. 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 Current regimen relieves 50-60% of the pain, does not cause significant side effects, and increases the patient's daily activity level. Patient is currently prescribed 30 MME per day. Patient has been managing medications appropriately, and is not confused or oversedated during our office visit. Most recent UDT 07/18/22 returned (+) for oxycodone metabolites but this was prescribed by her oncologist and is appropriate. Appropriate to continue with opioid therapy Mental Status Date Cognitive Assessment Orientation - [place] ed to time, place, person, situation. Patient Care Teams Name Effective Dates (start - stop) Status Members No Information
--- OUTSIDE RECORDS SUMMARY | 2022-09-30 09:28 | XMS_ITS | Continuity of Care Document ---
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 Professor Of Art Name Role Phone [facility] Unavailable Unava ilable Procedures Procedure Date INJECT SACROILIAC JOINT Inj for sacroiliac jt anesth Inj for sacroiliac jt anesth INJ FORAMEN EPIDURAL L/S INJ FORAMEN EPIDURAL L/S Advance Directives Directive Yes / No Effective Date File Name No Information Encounters Encounter Description Practice Location Reason(s) For Visit Diagnoses Date Provider Providers Copied on Encounter [facility], [address] [place] [address], [id number], tel:[phone] [place] [address] No Information 3 [facility]. [address] [place] [address], [id number], [place]. tel:[phone] Referring Provider: Miles Rey, [address] [place], [address] . tel:[phone] [facility], [address] [place] [address], [id number], tel:[phone] [place] [address] No Information 2 [facility]. [address] [place] [address], [id number], . tel:[phone] Referring Provider: Liam Blakely [employer] [address] [facility] [address], [place], [address]. tel:[phone] [facility], [address] [place] [address], [id number], tel:[phone] [facility] No Information 2 [facility]. [address] [place] [address], [id number], . tel:[phone] Referring Provider: Renetta Bush, [address] [facility], [place], [address] . tel:[phone] [facility], [address] [place] [address], [id number], tel:[phone] [facility] No Information 0 [facility]. [address] [place] [address], [id number], . tel:[phone] Referring Provider: Liam Blakely [employer] [address] [employer] [facility] [address], [place], [address]. tel:[phone] Family History Family Member Type Diagnosis Age At Onset No Information Payers Payer name Insurance type Covered libertarian ID Authordereka ticarlton(s) [employer] Ariel Garnica BL [id number] Social History Type Description Quantity Date Captured Comments Sex Female Smoking Status No Information Chief Complaint And Reason For Visit No Information Reason For Referral Reason For Referral No Information History Of Present Illness Encounter Date Complaint History Of Prese nt Illness No Information Functional Status Date Functional Assessmen t No Information Instructions Date Instruction Additional Infor mation No Information Assessments Type Assessment Date No Information Patient Care Teams Name Effective Dates (start - stop) Status Members No Information
--- OUTSIDE RECORDS SUMMARY | 2022-09-30 09:28 | XMS_ITS | Continuity of Care Document ---
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 Name Role Phone [facility] Unavailable Unav ailable Procedures Procedure Date INJECT SACROILIAC JOINT Inj for sacroiliac jt anesth Inj for sacroiliac jt anesth INJ FORAMEN EPIDURAL L/S INJ FORAMEN EPIDURAL L/S Inj for sacroiliac jt anesth Advance Directives Directive Yes / No Effective Date File Name No Information Encounters Encounter Description Practice Location Reason(s) For Visit Diagnoses Date Provider Providers Copied on Encounter [facility], [address] [place] [address], [id number], [facility] No Information [facility]. [address] [place] [address], [id number], . tel:[phone] Referring Provider: Renetta Bush, [address] [place] [address], [id number]. tel:[phone] [facility], [address] [place] [address], [id number], [facility] No Information [facility]. [address] [place] [address], [id number], . tel:[phone] Referring Provider: Renetta Bush, [address] [place] [address], [id number]. tel:[phone] [facility], [address] [place], [place], [id number], [facility] No Information [facility]. [address] [place], [place], [id number], . tel:[phone] Referring Provider: Beth Vick, [address] [place], [address]. tel:[phone] [facility], [address] [place], [place], [id number], [facility] No Information [facility]. [address] [place], [place], [id number], . tel:[phone] Referring Provider: iMles Jiménez, [address] [place], [address]. tel:[phone] Family History Family Member Type Diagnosis Age At Onset No Information Payers Payer name Insurance type Covered green party ID Authoriza ticarlton(s) No Information Social History [...]
--- NOTE | 2022-09-30 10:00 | CRLHL7_ITS ---
For Patients: As a result of the 21st Century Cures Act, medical imaging exams and procedure reports are released immediately into your electronic medical record. You may view this report before your referring provider. If you have questions, please contact your health care provider. Indication: Lung cancer Technique: Postcontrast CT chest, abdomen and pelvis. 74 cc Isovue 370 intravenous contrast. Please note that all CT scans at this facility use dose modulation, iterative reconstruction, and/or weight-based dosing when appropriate to reduce radiation dose to as low as reasonably achievable. Comparison: CT 05/27/2022. CT PET 06/13/2022 Findings: In the chest, decreased size of the adenopathy in the subcarinal space, now measuring 3.3 x 1.6 cm compared to 3.4 x 2.5 cm. Decreased size of the right infrahilar mass posteriorly, now measuring 1.8 x 1.6 cm, previously measuring approximately 4.3 cm. Improved aeration of the right lower lobe with residual soft tissue fullness along the right lower lobe bronchovascular tree. Decreased size of right paratracheal lymph node now measuring 12 millimeters compared to 14 millimeters on the prior study. Other mediastinal lymph nodes have also decreased in size along the right paratracheal region. Left hilum appears normal. No axillary adenopathy. Right pleural effusion has resolved. Residual reticular densities throughout the aerated right lower lobe extending to the pleura. A small area of air bronchograms noted at the right posterior lateral lung base. Linear subsegmental atelectasis or scar is present within the left lower lobe. No fracture is present. There is no destructive osseous lesion. In the abdomen, there is a subtle focus of decreased attenuation within the inferior liver measuring 8 millimeters, series 11, image 58. A small focus of fat deposition is present adjacent to the falciform ligament. The gallbladder is nondistended. No calcified gallstones. No biliary obstruction. The pancreas is normal. Normal spleen. Left adrenal gland is unremarkable. Decreased size of the right adrenal nodule which is barely perceptible on the current study. Decreased size of the suspicious mass within the lower pole of the left kidney now measuring approximately 2 cm compared to approximately 4.5 cm on the prior exam. Right kidney normal. Decreased size and conspicuity of portal caval lymph node which is now barely perceptible. Atherosclerotic changes. No aneurysm. No hiatal hernia. The stomach appears normal. Normal small bowel. No bowel obstruction. Decreased size of the previously noted lymph node in the left periaortic space. In the pelvis, the bladder is normal. Normal uterus and adnexa. Sigmoid diverticulosis. No diverticulitis. No bowel obstruction or free air. No free fluid or abscess. Appendix is normal. No enlarged pelvic or inguinal lymph nodes. Decreased density beneath the skin within the vulvar region. Stable adjacent sebaceous cyst. Degenerative disc disease L5-S1. Facet degeneration lower lumbar spine with grade 1 degenerative spondylolisthesis of L4 on L5. Impression: Decreased right lower lobe/right posterior perihilar mass and decreased subcarinal conglomerate adenopathy. Marked improved aeration of the right lower lobe with residual areas of atelectasis. Persistent soft tissue thickening along the bronchovascular tree at the right lower lobe. Decreased adenopathy in the mediastinum and resolution of previously noted right pleural effusion. Decreased size/conspicuity of lymph nodes in the portacaval space and left periaortic space. Decreased size of a suspicious mass within the lower pole of the left kidney. Also decreased size of suspicious right adrenal nodule. Subtle 8 millimeter low-density focus within the inferior liver not definitively present on the prior exam and suspicious for metastatic focus. MRI of the liver with and without contrast may be useful for further evaluation. Please note that all CT scans at this facility use dose modulation, iterative reconstruction, and/or weight-based dosing when appropriate to reduce radiation dose to as low as reasonably achievable. Dictated by Andres Nguyen MD @ 10/02/2022 9:50:04 AM (Electronically Signed)
--- NOTE | 2022-09-30 10:15 | CRLHL7_ITS ---
For Patients: As a result of the Century Cures Act, medical imaging exams and procedure reports are released immediately into your electronic medical record. You may view this report before your referring provider. If you have questions, please contact your health care provider. Indication: History of lung cancer and intracranial metastases. Technique: Noncontrast sagittal T1, axial FLAIR, T2 turbo spine echo, and diffusion weighted images. Supplemental post contrast T1 weighted axial and coronal sequences are provided after administration of 15 mL gadolinium-based IV contrast. Comparison: MRI brain dated 06/13/2022. Findings: The large majority of the previously described numerous enhancing intracranial metastases are no longer seen and the discernible lesions demonstrate significant interval decrease in size. For reference: - Significant interval decrease in size of the dominant lesion centered on the left post central gyrus, which measures 1.0 x 1.7 cm (series 13, image 176), previously 3.2 x 3.0 cm. - Significant interval decrease in size of the anterior left occipital lobe lesion which measures approximately 1.0 cm (series 13, image 127), previously 2.6 x 2.5 cm. Corresponding decrease in surrounding edema with minimal residual T2/FLAIR signal about the above lesions. Resolution of previously described midline shift. T1 hyperintensity and blooming associated with residual metastases consistent with subacute blood products. No suspicious calvarial lesion. Scattered paranasal sinus mucosal thickening and new bilateral mastoid effusions. Impression: 1. Numerous enhancing previously described metastatic lesions are no longer seen on this exam consistent with treatment response. 2. Residual lesions in the left postcentral gyrus and left anterior occipital lobe significantly decreased in size as above. 3. Corresponding interval decrease in edema and mass effect. 4. Scattered paranasal sinus mucosal thickening and bilateral mastoid effusions. Dictated by Miles Marie MD @ 09/30/2022 3:39:46 PM (Electronically Signed)
== END 2022-09-30 09:25 | disposition home or self-care (01) ==
LOC: CT 09:25
PROVIDERS: PCP Family Medicine; Visit Provider Clinical Nurse Specialist
DX: C34.90 Malignant neoplasm of unspecified part of unspecified bronchus or lung (principal); I50.9 Heart failure, unspecified; Z51.11 Encounter for antineoplastic chemotherapy; Z51.12 Encounter for antineoplastic immunotherapy
CPT/HCPCS: 70553; 71260; 74177; A9575; Q9967

== ENCOUNTER 2022-10-30 11:16 | Outpatient (CLI) | payer BC, SELFPAY ==
--- OUTSIDE RECORDS SUMMARY | 2022-10-30 11:20 | XMS_ITS | Continuity of Care Document ---
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 Name Role Phone [facility] Unavailable Unav ailable Procedures Procedure Date INJECT SACROILIAC JOINT Inj for sacroiliac jt anesth Inj for sacroiliac jt anesth INJ FORAMEN EPIDURAL L/S INJ FORAMEN EPIDURAL L/S Inj for sacroiliac jt anesth Advance Directives Directive Yes / No Effective Date File Name No Information Encounters Encounter Description Practice Location Reason(s) For Visit Diagnoses Date Provider Providers Copied on Encounter [facility], [address] [place] [address], [id number], [facility] No Information [facility]. [address] [place] [address], [id number], . tel:[phone] Referring Provider: Renetta Bush, [address] [place] [address], [id number]. tel:[phone] [facility], [address] [place] [address], [id number], [facility] No Information [facility]. [address] [place] [address], [id number], . tel:[phone] Referring Provider: Renetta Bush, [address] [place] [address], [id number]. tel:[phone] [facility], [address] [place], [place], [id number], [facility] [place] No Information [facility]. [address] [place], [place], [id number], . tel:[phone] Referring Provider: Beth Vick, [address] [place], [address]. tel:[phone] [facility], [address] [place], [place], [id number], [facility] No Information [facility]. [address] [place], [place], [id number], . tel:[phone] Referring Provider: Miles Jiménez, [address] [place], [address]. tel:[phone] Family History Family Member Type Diagnosis Age At Onset No Information Payers Payer name Insurance type Covered alliance party ID Authoriza ticarlton(s) No Information Social [...]
--- OUTSIDE RECORDS SUMMARY | 2022-10-30 11:20 | XMS_ITS | Continuity of Care Document ---
Author Name Unknown Organization [facility] enter Address [address] [place] [address] Phone Care Team Providers Care Director Workers Compensation Name Role Phone [facility] Unavailable Unava ilable Procedures Procedure Date INJECT SACROILIAC JOINT Inj for sacroiliac jt anesth Inj for sacroiliac jt anesth INJ FORAMEN EPIDURAL L/S INJ FORAMEN EPIDURAL L/S Advance Directives Directive Yes / No Effective Date File Name No Information Encounters Encounter Description Practice Location Reason(s) For Visit Diagnoses Date Provider Providers Copied on Encounter [facility], [address] [place] [address], [id number], tel:[phone] [place] [address] No Information 3 [facility]. [address] [place] [address], [id number], [place]. tel:[phone] Referring Provider: Miles Rey, [address] [place], [address] . tel:[phone] [facility], [address] [place] [address], [id number], tel:[phone] [place] [address] No Information 2 [facility]. [address] [place] [address], [id number], . tel:[phone] Referring Provider: Liam Blakely [address] [facility] [address], [place], [address]. tel:[phone] [facility], [address] [place] [address], [id number], tel:[phone] [facility] No Information 2 [facility]. [address] [place] [address], [id number], . tel:[phone] Referring Provider: Renetta Bush, [address] [facility], [place], [address] . tel:[phone] [facility], [address] [place] [address], [id number], tel:[phone] [facility] No Information 0 [facility]. [address] [place] [address], [id number], . tel:[phone] Referring Provider: Liam Blakely Triggit [address] [employer] [address] [facility] [address], [place], [address]. tel:[phone] Family History Family Member Type Diagnosis Age At Onset No Information Payers Payer name Insurance type Covered constitution party ID Authordereka ticarlton(s) [employer] Ariel Garnica BL [id number] Social History Type Description Quantity Date [...]
--- OUTSIDE RECORDS SUMMARY | 2022-10-30 11:21 | XMS_ITS | Continuity of Care Document ---
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 Name Role Phone Murphy Chi Unavailable Unavailable Allergies, Adverse Reactions, Alerts Substance Reaction Status Criticality No Known Allergies Active No Inform ation Medications Medication Instructions Dosage Effective Dates (start - stop) Status Comments oxycodone 5 mg tablet take 1 - 2 Tablet by ORAL route three times daily as needed, max 3/day - Active levothyroxine 100 mcg capsule take 1 capsule by oral route every day 100 MCG - Active prochlorperazine maleate 10 mg tablet take 1 tablet by oral route 3 times every day 10 MG - Active ondansetron 4 mg disintegrating tablet take 1 tablet by oral route every [address] on top of the tongue where they will dissolve, then swallow 4 MG - Active memantine 10 mg tablet take 1 tablet by oral route 2 times every day 10 MG - Active levetiracetam 500 mg tablet take 1 tablet by oral route 2 times every day 500 MG - Active dexamethasone 6 mg tablet take 1 tablet by oral route every day 6 MG - Active atorvastatin 20 mg tablet take 1 tablet by oral route every day 20 MG - Active amlodipine 5 mg tablet take 1 tablet by oral route every day 5 MG - Active clonazepam 0.5 mg disintegrating tablet Dissolve 1 tablet (0.5 mg total) in the mouth 2 (two) times a day as needed for seizures (Please take for seizure lasting greater than 1 minute). - Active ibuprofen 200 mg tablet Take 200 mg by m outh 4 (four) times a day as needed. - Active prochlorperazine 25 mg rectal suppository Insert 10 mg into the rectum every 12 (twelve) hours as needed for nausea or vomiting. - Active benzonatate 200 mg capsule take [...] tablets per 24hrs 1000 MG - Active Procedures Procedure Date OFFICE/OUTPATIENT VISIT, EST Drug Urine Toxology With Chromatography Drug test def 8-14 classes OFFICE VISIT, EST TELEMEDICINE OFFICE VISIT, EST [...] test def 8-14 classes INJ TRIGGER POINT, /2 MUSCL Kenalog Triamcinolone [...] eval q3mo opiod tx INJ TRIGGER POINT, 1/2 MUSCL Foll-up eval [...] Diagnoses Date Provider Providers Copied on Encounter OFFICE/OUTPAT IENT VISIT, EST [facility], [address], [place], [id number] , [place] tel:[phone] [facility] [place] Neck Pain (chief complaint) Malignant neoplasm of pleuraChronic pain syndromeSacroilii tisSpinal stenosis, lumbar regionRadiculopat hy, lumbar regionMyalgia, other siteLong term (current) use of opiate analgesicEncounte r for therapeutic drug level monitoring 3 Kelsey Arrington. [facility], [place], [id number] , [place]. [phone] Referring Provider: Miles Jiménez, [address] [place], [address]. tel:[phone] [facility], [address], [place], [id number] , [place] tel:[phone] [facility] No Information 3 Kelsey Arrington. [address] [place] [address] 100, [place], [place], [id number] , [place]. tel:[phone] OFFICE VISIT, EST TELEMEDICINE [facility], [address] [place] [address], [id number] , [place] tel:[phone] [facility] Neck Pain (chief complaint) Malignant neoplasm of pleuraChronic pain syndromeSacroilii tisSpinal stenosis, lumbar regionRadiculopat hy, lumbar regionMyalgia, other siteLong term (current) use of opiate analgesic 3 Kelsey Arrington. [address] [place] [address] [address], [place], [place], [id number] , [place]. [phone] Referring Provider: Miles Jiménez, [address] [place] [address], [address]. tel:[phone] OFFICE VISIT, [facility], [address] [place] [address], [id number] , [place] [phone] [facility] Neck Pain (chief complaint) Chronic pain syndromeSacroilii tisSpinal stenosis, lumbar regionRadiculopat hy, lumbar regionMyalgia, other siteLong term (current) use of opiate analgesicMalignan t neoplasm of pleura 3 Colehina Arrington. [address] [place] [address] 100, [place], [place], [id number] , [place]. [phone] Referring Provider: Miles Jiménez, [address] [place] [address], [address]. tel:[phone] OFFICE/OUTPAT IENT VISIT, [facility], [address] [place] [address], [id number] , [place] [phone] [facility] low back pain (chief complaint) Chronic pain syndromeSacroilii tisSpinal stenosis, lumbar regionRadiculopat hy, lumbar regionMyalgia, other siteLong term (current) use of opiate analgesicMalignan t neoplasm of pleuraEncounter for therapeutic drug level monitoring 3 Kelsye Arrington. [address] [place] [address] [address], [place], [place], [id number] , [place]. tel:[phone] Referring Provider: Miles Jiménez, [address] [place] [address], [address]. tel:[phone] [facility], [address] [place] [address], [id number] , [place] tel:[phone] [facility] [place] No Information 3 Kelsey Arrington. [address] [place] [address] [address], [place], [place], [id number] , [place]. tel:[phone] OFFICE VISIT, EST TELEMEDICINE [facility], [address] [place] [address], [id number] , [place] tel: [phone] [facility] low back pain (chief complaint) Chronic pain syndromeSacroilii tisSpinal stenosis, lumbar regionRadiculopat hy, lumbar regionMyalgia, other siteLong term (current) use of opiate analgesic May- 3 Kelsey Arrington. [address] [place] [address] [address], [place], [place], [id number] , [place]. tel: [phone] Referring Provider: Miles Jiménez, [address] [place] [address], [address]. tel:[phone] OFFICE VISIT, EST TELEMEDICINE [facility], [address] [place] [address], [id number] , [place] tel: [phone] [facility] low back pain (chief complaint) Spinal stenosis, lumbar regionSacroiliiti sMyalgia, other siteRadiculopathy , lumbar regionLong term (current) use of opiate analgesicChronic pain syndrome Apr- 3 Jenny Campos. [address] [place] [address], [id number] , [place]. tel:[phone] Referring Provider: Miles Jiménez, [address] [place] [address], [address]. tel:[phone] OFFICE/OUTPAT IENT VISIT, EST [facility], [address] [place] [address], [id number] , [place] tel:[phone] [facility] low back pain (chief complaint) SacroiliitisSpina l stenosis, lumbar regionRadiculopat hy, lumbar regionMyalgia, other siteLong term (current) use of opiate analgesic 3 Cole Murphy. [address] [place] [address] [address], [facility], [place], [id number] , [place]. tel:[phone] Referring Provider: Miles Jiménez, [address] [place] [address], [address]. tel:[phone] [facility], [address] [place] [address], [id number] , [place] tel:[phone] [facility] No Information 3 Kelsey Arrington. [address] [place] [address] [address], [place], [id number] , [place]. tel:[phone] [facility], [address] [place] [address], [id number] , [place] tel:[phone] [facility] [place] Sacroiliitis, not elsewhere classified 3 Krissy Aquino. [address] [place] [address], [id number] , [place]. tel:[phone] Referring Provider: Miles Jiménez, [address] [place] [address], [address]. tel:[phone] OFFICE VISIT, EST TELEMEDICINE [facility], [address] [place] [address], [id number] , [place] tel:[phone] [facility] low back pain (chief complaint) SacroiliitisSpina l stenosis, lumbar regionRadiculopat hy, lumbar regionMyalgia, other siteLong term (current) use of opiate analgesic 3 Cole Murphy. [address] [place] [address] [address], [facility], [place], [id number] , [place]. tel:[phone] OFFICE VISIT, [facility] TELEMEDICINE [facility], [address] [place] [address], [id number] , [place] tel: [phone] [facility] low back pain (chief complaint) SacroiliitisSpina l stenosis, lumbar regionRadiculopat hy, lumbar regionMyalgia, other siteLong term (current) use of opiate analgesic 2 Kelsey Arrington. [address] [place] [address] [address], [place], [id number] , [place]. tel: [phone] [facility], [address] [place] [address], [id number] , [place] tel: [phone] [facility] No Information 2 Kelsey Arrington. [address] [place] [address] [address], [place], [id number] , [place]. tel: [phone] Referring Provider: Miles Jiménez, [address] [place] [address], [address]. [phone] OFFICE/OUTPAT IENT VISIT, [facility], [address] [place] [address], [id number] , [place] tel:[phone] [facility] low back pain (chief complaint) SacroiliitisSpina l stenosis, lumbar regionRadiculopat hy, lumbar regionMyalgia, other siteLong term (current) use of opiate analgesicEncounte r for therapeutic drug level monitoring 2 Colehina Arrington. [address] [place] [address] [address], [place], [place], [id number] , [place]. tel:[phone] Referring Provider: Miles Jiménez, [address] [place] [address], [address]. tel:[phone] OFFICE VISIT, [facility], [address] [place] [address], [id number] , [place] [phone] [facility] low back pain (chief complaint) SacroiliitisSpina l stenosis, lumbar regionRadiculopat hy, lumbar regionMyalgia, other siteLong term (current) use of opiate analgesic Nov-3 2 Cole Murphy. [address] [place] [address] [address], [place], [id number] , [place]. tel:[phone] [facility], [address] [place] [address], [id number] , [place] tel:[phone] [facility] [place] Sacroiliitis, not elsewhere classified Sep-3 2 Reddy Wheeler. [facility], [address], [place], [address], [place]. tel:[phone] Referring Provider: Miles Jiménez, [address] [place] [address], [address]. [phone] OFFICE VISIT, EST TELEMEDICINE [facility], [address] [place] [address], [id number] , [place] tel:[phone] [facility] low back pain (chief complaint) SacroiliitisSpina l stenosis, lumbar regionRadiculopat hy, lumbar regionMyalgia, other siteLong term (current) use of opiate analgesic Sep-2 2 Cole Murphy. [address] [place] [address] [address], [place], [id number] , [place]. tel:[phone] Referring Provider: Miles Jiménez, [address] [place] [address], [address]. [phone] [facility], [address] [place] [address], [id number] , [place] tel:[phone] [facility] No Information 2 Cole Murphy. [address] [place] [address] [address], [place], [id number] , [place]. [phone] Referring Provider: Miles Jiménez, [address] [place] [address], [address]. [phone] OFFICE/OUTPAT IENT VISIT, EST [facility], [address] [place] [address], [id number] , [place] tel: [phone] [facility] [place] low back pain (chief complaint) SacroiliitisSpina l stenosis, lumbar regionRadiculopat hy, lumbar regionMyalgia, other siteLong term (current) use of opiate analgesic 2 Kelsey Arrington. [address] [place] [address] [address], [place], [place], [id number] , [place]. tel: [phone] Referring Provider: Miles Jiménez, [address] [place] [address], [address]. tel:[phone] OFFICE VISIT, EST TELEMEDICINE [facility], [address] [place] [address], [id number] , [place] tel: [phone] [facility] Back Pain (chief complaint) SacroiliitisSpina l stenosis, lumbar regionRadiculopat hy, lumbar regionMyalgia, other siteLong term (current) use of opiate analgesic 2 Kelsey Arrington. [address] [place] [address] [address], [place], [place], [id number] , [place]. tel: [phone] OFFICE VISIT, EST TELEMEDICINE [facility], [address] [place] [address], [id number] , [place] tel: [phone] [facility] Back Pain (chief complaint) SacroiliitisSpina l stenosis, lumbar regionRadiculopat hy, lumbar regionMyalgia, other siteLong term (current) use of opiate analgesic 2 Kelsey Arrington. [address] [place] [address] [address], [place], [id number] , [place]. tel: [phone] [facility], [address] [place] [address], [id number] , [place] tel: [phone] [facility] [place] Sacroiliitis, not elsewhere classified 2 Eleazar Jackson. [address] [place], [place], [id number] , [place]. tel: [phone] Referring Provider: Miles Jiménez, [address] [place] [address], [address]. tel:[phone] OFFICE VISIT, EST TELEMEDICINE [facility], [address], [place], [id number] , [place] tel:[phone] [facility] Back Pain (chief complaint) SacroiliitisSpina l stenosis, lumbar regionRadiculopat hy, lumbar regionMyalgia, other siteLong term (current) use of opiate analgesic 2 Colehina Arrington. [address] [place] [address] [address], [place], [id number] , [place]. tel:[phone] Referring Provider: Miles Jiménez, [address] [place] [address], [address]. tel:[phone] OFFICE VISIT, [facility] TELEMEDICINE [facility], [address] [place] [address], [id number] , [place] [phone] [facility] Back Pain (chief complaint) SacroiliitisSpina l stenosis, lumbar regionRadiculopat hy, lumbar regionMyalgia, other siteLong term (current) use of opiate analgesic 0 2 Cole Murphy. [address] [place] [address] [address], [place], [id number] , [place]. tel:[phone] [facility], [address] [place] [address], [id number] , [place] tel:[phone] [facility] No Information 2 Cole Murphy. [address] [place] [address] [address], [place], [id number] , [place]. tel:[phone] OFFICE/OUTPAT IENT VISIT, EST [facility], [address] [place] [address], [id number] , [place] tel:[phone] [facility] Back Pain (chief complaint) Myalgia, other siteSacroiliitisS lester stenosis, lumbar regionRadiculopat hy, lumbar regionLong term (current) use of opiate analgesicEncounte r for screening for other disorderEncounter for therapeutic drug level monitoring 2 Colehina Arrington. [address] [place] [address] [address], [place], [place], [id number] , [place]. tel: [phone] Referring Provider: Miles Jiménez, [address] [place] [address], [address]. tel:[phone] OFFICE VISIT, EST TELEMEDICINE [facility], [address] [place] [address], [id number] , [place] tel: [phone] [facility] [place] No Information 2 Kelsey Arrington. [address] [place] [address] [address], [place], [id number] , [place]. tel: [phone] Referring Provider: Miles Jiménez, [address] [place] [address], [address]. tel:[phone] OFFICE VISIT, EST TELEMEDICINE [facility], [address] [place] [address], [id number] , [place] tel: [phone] [facility] Back Pain (chief complaint) Radiculopathy, lumbar regionSacroiliiti sSpinal stenosis, lumbar regionMyalgia, other siteLong term (current) use of opiate analgesic 2 Cole Murphy. [address] [place] [address] [address], [place], [place], [id number] , [place]. tel: [phone] OFFICE VISIT, EST TELEMEDICINE [facility], [address] [place] [address], [id number] , [place] tel: [phone] [facility] Back Pain (chief complaint) Radiculopathy, lumbar regionSacroiliiti sSpinal stenosis, lumbar regionMyalgia, other siteLong term (current) use of opiate analgesic Jan- 1 Kelsey Arrington. [address] [place] [address] [address], [place], [place], [id number] , [place]. tel: [phone] [facility], [address] [place] [address], [id number] , [place] tel: [phone] [facility] Sacroiliitis Jan- 1 Eleazar Jackson. [address] [place] [address], [id number] , [place]. [phone] Referring Provider: Miles Jiménez, [address] [place] [address], [address]. tel:[phone] OFFICE VISIT, [facility] TELEMEDICINE [facility], [address] [place] [address], [id number] , [place] [phone] [facility] Back Pain (chief complaint) Radiculopathy, lumbar regionSpinal stenosis, lumbar regionSacroiliiti sMyalgia, other siteLong term (current) use of opiate analgesic Dec-0 2-202 1 Kelsey Arrington. [address] [place] [address] [address], [place], [place], [id number] , [place]. [phone] Referring Provider: Miles Jiménez, [address] [place] [address], [address]. tel:[phone] OFFICE VISIT, [facility], [address] [place] [address], [id number] , [place] tel:[phone] [facility] Back Pain (chief complaint) Radiculopathy, lumbar regionSpinal stenosis, lumbar regionSacroiliiti sMyalgia, other siteLong term (current) use of opiate analgesic Nov-0 3- 1 Colekayla Arrington. [address] [place] [address] [address], [place], [place], [id number] , [place]. tel:[phone] OFFICE VISIT, [facility], [address] [place] [address], [id number] , [place] tel:[phone] [facility] Back Pain (chief complaint) Myalgia, other siteSacroiliitisR adiculopathy, lumbar regionSpinal stenosis, lumbar regionLong term (current) use of opiate analgesic Oct-0 - 1 Cole Murphy. [address] [place] [address] [address], [place], [place], [id number] , [place]. [phone] Referring Provider: Miles Jiménez, [address] [place] [address], [address]. tel:[phone] [facility], [address] [place] [address], [id number] , [place] tel: [phone] [facility] [place] Myalgia, other site Sep-1 0- 1 Cole Murphy. [address] [place] [address] [address], [place], [place], [id number] , [place]. tel: [phone] Referring Provider: Miles Jiménez, [address] [place] [address], [address]. tel:[phone] OFFICE VISIT, EST TELEMEDICINE [facility], [address] [place] [address], [id number] , [place] tel: [phone] [facility] [place] Back Pain (chief complaint) SacroiliitisRadic ulopathy, lumbar regionSpinal stenosis, lumbar regionLong term (current) use of opiate analgesicMyalgia, other site Sep-0 1 Kelsey Arrington. [address] [place] [address] [address], [place], [id number] , [place]. tel: [phone] Referring Provider: Miles Jiménez, [address] [place] [address], [address]. tel:[phone] OFFICE VISIT, EST TELEMEDICINE [facility], [address] [place] [address], [id number] , [place] tel: [phone] [facility] Back Pain (chief complaint) SacroiliitisRadic ulopathy, lumbar regionSpinal stenosis, lumbar regionLong term (current) use of opiate analgesicMyalgia, other site Aug-0 1 Kelsey Arrington. [address] [place] [address] [address], [place], [place], [id number] , [place]. tel:[phone] Referring Provider: Miles Jiménez, [address] [place] [address], [address]. tel:[phone] OFFICE VISIT, EST TELEMEDICINE [facility], [address] [place] [address], [id number] , [place] tel: [phone] [facility] [place] Back Pain (chief complaint) SacroiliitisRadic ulopathy, lumbar regionSpinal stenosis, lumbar regionLong term (current) use of opiate analgesicMyalgia, other site 1 Kelsey Arrington. [address] [place] [address] [address], [place], [place], [id number] , [place]. tel:[phone] Referring Provider: Miles Jiménez, [address] [place] [address], [address]. [phone] OFFICE VISIT, EST TELEMEDICINE [facility], [address] [place] [address], [id number] , [place] tel:[phone] [facility] Back Pain (chief complaint) SacroiliitisRadic ulopathy, lumbar regionSpinal stenosis, lumbar regionLong term (current) use of opiate analgesicMyalgia, other site 1 Colehina Arrington. [address] [place] [address] [address], [place], [place], [id number] , [place]. tel:[phone] Referring Provider: Miles Jiménez, [address] [place] [address], [address]. tel:[phone] OFFICE VISIT, EST TELEMEDICINE [facility], [address] [place] [address], [id number] , [place] tel:[phone] [facility] Back Pain (chief complaint) SacroiliitisRadic ulopathy, lumbar regionSpinal stenosis, lumbar regionLong term (current) use of opiate analgesicMyalgia, other site 1 Colehina Arrington. [address] [place] [address] [address], [place], [place], [id number] , [place]. tel:[phone] Referring Provider: Miles Jiménez, [address] [place] [address], [address]. [phone] [facility], [address] [place] [address], [id number] , [place] tel:[phone] [facility] Sacroiliitis Apr-2 1 Eleazar Jackson. [address] [place] [address], [id number] , [place]. tel:[phone] Referring Provider: Miles Jiménez, [address] [place] [address], [address]. [phone] OFFICE VISIT, EST TELEMEDICINE [facility], [address] [place] [address], [id number] , [place] tel:[phone] [facility] Back Pain (chief complaint) Radiculopathy, lumbar regionSpinal stenosis, lumbar regionLong term (current) use of opiate analgesicMyalgia, other siteSacroiliitis 1 Cole Murphy. [address] [place] [address] [address], [place], [place], [id number] , [place]. [phone] Referring Provider: Miles Jiménez, [address] [place] [address], [address]. [phone] OFFICE VISIT, EST [facility], [address] [place] [address], [id number] , [place] tel:[phone] [facility] Back Pain (chief complaint) Radiculopathy, lumbar regionSpinal stenosis, lumbar regionLong term (current) use of opiate analgesicMyalgia, other siteSacroiliitis 1 Cole Murphy. [address] [place] [address] [address], [place], [place], [id number] , [place]. tel:[phone] Referring Provider: Miles Jiménez, [address] [place] [address], [address]. [phone] OFFICE VISIT, [facility], [address] [place] [address], [id number] , [place] [phone] [facility] Back Pain (chief complaint) Radiculopathy, lumbar regionSpinal stenosis, lumbar regionLong term (current) use of opiate analgesicSacroili itisMyalgia, other site Fe 1 Cole Murphy. [address] [place] [address] [address], [place], [place], [id number] , [place]. tel:[phone] Referring Provider: Miles Jiménez, [address] [place] [address], [address]. tel:[phone] [facility] [facility], [address] [place] [address], [id number] , [place] tel: [phone] [facility] [place] No Information 1 Colehina Arrington. [address] [place] [address] [address], [place], [place], [id number] , [place]. tel: [phone] OFFICE/OUTPAT IENT VISIT, [facility], [address] [place] [address], [id number] , [place] tel: [phone] [facility] Back Pain (chief complaint) Radiculopathy, lumbar regionSpinal stenosis, lumbar regionLong term (current) use of opiate analgesicSacroili itisMyalgia, other site 1 Cole Murphy. [address] [place] [address] [address], [place], [place], [id number] , [place]. tel: [phone] Referring Provider: Miles Jiménez, [address] [place] [address], [address]. tel:[phone] OFFICE VISIT, [facility] TELEMEDICINE [facility], [address] [place] [address], [id number] , [place] tel: [phone] [facility] Back Pain (chief complaint) Radiculopathy, lumbar regionSpinal stenosis, lumbar regionLong term (current) use of opiate analgesicSacroili itisMyalgia, other site 0 Cole Murphy. [address] [place] [address] [address], [place], [place], [id number] , [place]. tel: [phone] Referring Provider: Miles Jiménez, [address] [place] [address], [address]. [phone] [facility], [address] [place] [address], [id number] , [place] tel:[phone] [facility] Radiculopathy, lumbar region 0 Reddy Wheeler. [facility], [address], [place], [address], [place]. tel:[phone] Referring Provider: Miles Jiménez, [address] [place] [address], [address]. [phone] OFFICE VISIT, [facility], [address] [place] [address], [id number] , [place] tel:[phone] [facility] Back Pain (chief complaint) Radiculopathy, lumbar regionSpinal stenosis, lumbar regionLong term (current) use of opiate analgesicSacroili itisMyalgia, other site 0 Colehina Arrington. [address] [place] [address] [address], [place], [place], [id number] , [place]. tel:[phone] Referring Provider: Miles Jiménez, [address] [place] [address], [address]. [phone] OFFICE VISIT, [facility], [address] [place] [address], [id number] , [place] tel:[phone] [facility] Back Pain (chief complaint) Radiculopathy, lumbar regionSpinal stenosis, lumbar regionLong term (current) use of opiate analgesicSacroili itisMyalgia, other site 0 Cole Murphy. [address] [place] [address] [address], [place], [place], [id number] , [place]. tel:[phone] Referring Provider: Miles Jiménez, [address] [place] [address], [address]. [phone] OFFICE VISIT, [facility], [address] [place] [address], [id number] , [place] [phone] [facility] Back Pain (chief complaint) Radiculopathy, lumbar regionSpinal stenosis, lumbar regionLong term (current) use of opiate analgesicSacroili itisMyalgia, other site 0 Cole Murphy. [address] [place] [address] [address], [place], [place], [id number] , [place]. [phone] Referring Provider: Miles Jiménez, [address] [place] [address], [address]. tel:[phone] OFFICE/OUTPAT IENT VISIT, [facility], [address] [place] [address], [id number] , [place] tel:[phone] [facility] Back Pain (chief complaint) Radiculopathy, lumbar regionSpinal stenosis, lumbar regionLong term (current) use of opiate analgesicSacroili itisMyalgia, other site 0 Colehina Arrington. [address] [place] [address] [address], [place], [place], [id number] , [place]. [phone] Referring Provider: Miles Jiménez, [address] [place] [address], [address]. tel:[phone] [facility], [address] [place] [address], [id number] , [place] tel:[phone] [facility] Radiculopathy, lumbar region 0 Nava Campos. [address] [place] [address], [id number] , [place]. [phone] Referring Provider: Miles Jiménez, [address] [place] [address], [address]. tel:[phone] OFFICE VISIT, [facility] TELEMEDICINE [facility], [address] [place] [address], [id number] , [place] [phone] [facility] Back Pain (chief complaint) Radiculopathy, lumbar regionSpinal stenosis, lumbar regionLong term (current) use of opiate analgesicSacroili itis 0 Kelsey Arrington. [address] [place] [address] [address], [place], [place], [id number] , [place]. [phone] Referring Provider: Miles Jiménez, [address] [place] [address], [address]. tel:[phone] [facility], [address] [place] [address], [id number] , [place] tel: [phone] [facility] [place] Radiculopathy, lumbar region 0 Kelsey Arrington. [address] [place] [address] [address], [place], [place], [id number] , [place]. tel: [phone] OFFICE VISIT, EST TELEMEDICINE [facility], [address] [place] [address], [id number] , [place] tel: [phone] [facility] [place] Back Pain (chief complaint) Radiculopathy, lumbar regionSpinal stenosis, lumbar regionLong term (current) use of opiate analgesicSacroili itis 0 Kelsey Arrington. [facility] [facility] [address], [place], [place], [id number] , [place]. tel: [phone] Referring Provider: Miles Jiménez, [address] [place] [address], [address]. tel:[phone] OFFICE VISIT, EST TELEMEDICINE [facility], [address] [place] [address], [id number] , [place] tel: [phone] [facility] Back Pain (chief complaint) Low back painChronic pain syndromeRadiculop athy, lumbar regionSpinal stenosis, lumbar regionLong term (current) use of opiate analgesic 0 Kelsey Arrington. [address] [place] [address] [address], [facility] [place] [place], [id number] , [place]. tel: [phone] [facility], [address] [place] [address], [id number] , [place] tel: [phone] [facility] Low back pain 0 Live Aquino. [address] [place] [address], [id number] , [place]. tel: [phone] Referring Provider: Miles Jiménez, [address] [place] [address], [address]. [phone] OFFICE VISIT, EST TELEMEDICINE [facility], [address] [place] [address], [id number] , [place] tel: [phone] [facility] [place] Back Pain (chief complaint) Chronic pain syndromeRadiculop athy, lumbar regionSpinal stenosis, lumbar regionLong term (current) use of opiate analgesic Apr-1 0-202 0 Kelsey Arrington. [address] [place] [address] [address], [place], [place], [id number] , [place]. tel:[phone] Referring Provider: Miles Jiménez, [address] [place] [address], [address]. tel:[phone] OFFICE VISIT, [facility], [address] [place] [address], [id number] , [place] [phone] [facility] Back Pain (chief complaint) Chronic pain syndromeRadiculop athy, lumbar regionSpinal stenosis, lumbar regionLong term (current) use of opiate analgesicLow back pain Mar-1 - 0 Kelsey Arrington. [address] [place] [address] [address], [place], [place], [id number] , [place]. tel:[phone] Referring Provider: Miles Jiménez, [address] [place] [address], [address]. tel:[phone] OFFICE/OUTPAT IENT VISIT, [facility], [address] [place] [address], [id number] , [place] tel:[phone] [facility] Back Pain (chief complaint) Chronic pain syndromeOther intervertebral disc degeneration, lumbar regionRadiculopat hy, lumbar regionSpinal stenosis, lumbar regionEncounter for therapeutic drug level monitoringLong term (current) use of opiate analgesic Apr-0 - 0 Kelsey Arrington. [address] [place] [address] [address], [place], [place], [id number] , [place]. tel:[phone] Referring Provider: Abdifatah Henry, [facility] [address] , [place], [address]. tel:[phone] Family History Family Member Type Diagnosis Age At Onset No Information Payers Payer name Insurance type Covered democrat ID Authoriza ticarlton(s) [employer] Cross Ariel Garnica BL [id number] Social History Type Description Quantity Date Captured Comments Alcohol Use Details Unknown Caffeine Use Details Unknown Tobacco Use Status Smoking Status No Information Sex Female Chief Complaint And Reason For Visit From encounter dated 10/16/2022 09:00'. Neck Pain (chief complaint). Description: The severity of the problem is moderate. Duration: chronic. The status of the symptoms are fluctuating. The frequency of pain is intermittent. Aggravating factors include climbing stairs, lifting, prolonged sitting and walking. Relieving factors include heating pad, ice, narcotic analgesics, stretching and changing positions. Pertinent negatives include bladder incontinence. Reason For Referral Reason For Referral No Information Plan Of Treatment Date Type Action Status Goal OARS. Due on due Goal Order Annual PT. Due on due Goal BOAT CREW DECK HAND Paperwork. Due on due Goal PHQ-9. Due on du e Goal UDT. Due on due Goal Height. Due on d ue Goal Zoster vaccine (1st). Due on due Goal FIT. Due on due Goal Creatinine. Due on [address]-Colonography. Due on due Goal Tobacco Use. Due on 023 due Goal Weight. Due on d ue Goal Medication Recon ciliation. Due on due Goal Hepatitis C screening. Due o n due Goal ALT (SGPT). Due on due Goal FIT-DNA. Due on due Goal Unhealthy drug u se screening. Due on due Goal Update Social History. Due o n due Goal PLATER HELPER Scanned. Due on due Goal Review Allergy List. Due on due Goal HPV. Due on due Goal AST (SGOT). Due on due Goal Lipid panel. Due on due Goal OARS. Due on due Goal Hepatitis C screening. Due o n due Goal Unhealthy drug u se screening. Due on due Goal Creatinine. Due on due Goal Height. Due on d ue Goal Tobacco Use. Due on due Goal Review Allergy List. Due on due Goal CT-Colonography. Due on due Goal BOAT CREW DECK HAND Paperwork. Due on due Goal AST (SGOT). [...] Goal Lipid panel. Due on due Goal PLATER HELPER Scanned. Due on due Goal UDT. Due on due Goal Weight. Due on d ue Goal Medication Recon ciliation. Due on due Goal Creatinine. Due on due Goal PLATER HELPER Scanned. Due on due Goal BOAT CREW DECK HAND Paperwork. Due on due Goal OARS. Due on due Goal AST (SGOT). Due on due Goal UDT. Due on due Goal Tobacco Use. Due on due Goal Order Annual PT. Due on due Goal HPV. Due on due Goal CT-Colonography. Due on due Goal Lipid panel. Due on due Goal Review Allergy List. [...] Zoster vaccine (). Due on due Goal Update Social History. [...] due Goal FIT-DNA. Due on due Goal BOAT CREW DECK HAND Paperwork. Due on due Goal PLATER HELPER Scanned. Due on due Goal OARS. Due on due Goal HPV. Due on due Goal Height. Due on d ue Goal ALT (SGPT). Due on due Goal Hepatitis C screening. Due o n due Goal Lipid panel. Due on 023 due Goal Order Annual PT. Due on due Goal Tobacco Use. Due on 023 due Goal FIT. Due on due Goal CT-Colonography. Due on due Goal Weight. Due on d ue Goal OARS. Due on due Goal ALT (SGPT). Due on due Goal Hepatitis C screening. Due o n due Goal BOAT CREW DECK HAND Paperwork. Due on due Goal FIT-DNA. Due on due Goal PHQ-9. Due on du e Goal Tobacco Use. Due on due Goal HPV. Due on due Goal Update Social History. Due o n due Goal CT-Colonography. Due on due Goal UDT. Due on due Goal Lipid panel. Due on due Goal FIT. Due on due Goal Height. Due on d ue Goal PLATER HELPER Scanned. Due on due Goal Medication Recon ciliation. Due on due Goal Unhealthy drug u se screening. Due on due Goal Weight. Due on d ue Goal Creatinine. Due on due Goal AST (SGOT). Due on due Goal Order Annual PT. Due on due Goal Zoster vaccine (). Due on due Goal Review Allergy List. Due on due Goal Lipid panel. Due on due Goal Zoster vaccine (1st). Due on due Goal Creatinine. Due on due Goal Medication Recon ciliation. Due on due Goal PLATER HELPER Scanned. Due on due Goal Height. Due on d ue Goal UDT. Due on due Goal Order Annual PT. Due on due Goal BOAT CREW DECK HAND Paperwork. Due on due Goal HPV. Due [...] Goal Tobacco Use. Due on due Goal PLATER HELPER Scanned. Due on due Goal Review Allergy List. Due on due Goal FIT. Due on due Goal Weight. Due on d ue Goal Creatinine. Due on due Goal PHQ-9. Due on du e Goal Medication Recon ciliation. Due on due Goal Unhealthy drug u se screening. Due on due Goal OARS. Due on due Goal FIT-DNA. Due on due Goal BOAT CREW DECK HAND Paperwork. Due on due Goal Update Social [...] Goal Lipid panel. Due on due Goal PLATER HELPER Scanned. Due on due Goal UDT. Due on due Goal OARS. Due on due Goal Order Annual PT. Due on due Goal ALT (SGPT). Due on due Goal Creatinine. Due on due Goal BOAT CREW DECK HAND Paperwork. Due on due Goal PHQ-9. Due [...] ue Goal FIT-DNA. Due on due Goal Zoster vaccine (1st). Due on due Goal FIT. Due on due Goal UDT. Due on due Goal ALT (SGPT). Due on due Goal PLATER HELPER Scanned. Due on due Goal AST (SGOT). [...] Zoster vaccine (1st). Due on due Goal Order Annual PT. Due on due Goal Medication Recon ciliation. Due on due Goal Weight. Due on d ue Goal BOAT CREW DECK HAND Paperwork. Due on due Goal FIT-DNA. Due [...] C screening. Due o n due Goal PLATER HELPER Scanned. Due on due Goal Medication Recon ciliation. Due on due Goal FIT. Due on due Goal PHQ-9. Due on du e Goal ALT (SGPT). Due on due Goal AST (SGOT). Due on due Goal Order Annual PT. Due on due Goal OARS. Due on due Goal BOAT CREW DECK HAND Paperwork. Due on due Goal Zoster vaccine (1st). Due on due Goal Height. Due on d ue Goal Update Social History. Due o n due Goal Unhealthy drug u se screening. Due on due Goal Lipid panel. Due on 023 due Goal HPV. Due on due Goal CT-Colonography. Due on due Goal ALT (SGPT). Due on due Goal BOAT CREW DECK HAND Paperwork. Due on due Goal AST (SGOT). [...] ue Goal CT-Colonography. Due on due Goal PLATER HELPER Scanned. Due on due Goal Lipid panel. Due on due Goal ALT (SGPT). Due on due Goal AST (SGOT). Due on due Goal BOAT CREW DECK HAND Paperwork. Due on due Goal PHQ-9. Due on du e Goal PLATER HELPER Scanned. Due on due Goal OARS. Due [...] Zoster vaccine (). Due on due Goal UDT. Due on due Goal OARS. Due on due Goal BOAT CREW DECK HAND Paperwork. Due on due Goal Weight. Due on d ue Goal FIT-DNA. Due on due Goal Creatinine. Due on due Goal UDT. Due on due Goal Zoster vaccine (). Due on due Goal PLATER HELPER Scanned. Due on due Goal Lipid panel. [...] Order Annual PT. Due on due Goal PLATER HELPER Scanned. Due on due Goal UDT. Due on due Goal Creatinine. Due on due Goal Update Social History. Due o n due Goal BOAT CREW DECK HAND Paperwork. Due on due Goal Medication Recon [...] screening. Due on due Goal Zoster vaccine (). Due on due Goal OARS. Due on due Goal Unhealthy drug u se screening. Due on due Goal FIT. Due on due Goal Medication Recon ciliation. Due on due Goal Hepatitis C screening. Due o n due Goal CT-Colonography. Due on due Goal HPV. Due on due Goal Review Allergy List. Due on due Goal Zoster vaccine (). Due on due Goal FIT-DNA. Due on due Goal PHQ-9. Due on du e Goal UDT. Due on due Goal Lipid panel. Due on due Goal AST (SGOT). Due on due Goal Update Social History. Due o n due Goal Height. Due on d ue Goal PLATER HELPER Scanned. Due on due Goal Weight. Due on d ue Goal ALT (SGPT). Due on due Goal Creatinine. Due on due Goal BOAT CREW DECK HAND Paperwork. Due on due Goal Order Annual PT. Due on due Goal Tobacco Use. Due on due Goal Medication Recon ciliation. Due on due Goal Update Social History. Due o n due Goal Unhealthy drug u se screening. Due on due Goal PLATER HELPER Scanned. Due on due Goal OARS. Due on due Goal PHQ-9. Due on du e Goal Tobacco Use. Due on due Goal Creatinine. Due on due Goal FIT. Due on due Goal Hepatitis C screening. Due o n due Goal UDT. Due on due Goal BOAT CREW DECK HAND Paperwork. Due on due Goal ALT (SGPT). [...] Order Annual PT. Due on due Goal BOAT CREW DECK HAND Paperwork. Due on due Goal PLATER HELPER Scanned. Due on due Goal OARS. Due [...] ue Goal HPV. Due on due Goal CT-Colonography. Due on due Goal FIT-DNA. Due on due Goal Lipid panel. Due on due Goal PLATER HELPER Scanned. Due on due Goal Tobacco Use. Due on due Goal Height. Due on d ue Goal FIT. Due on due Goal Order Annual PT. Due on due Goal Weight. Due on d ue Goal Unhealthy drug u se screening. Due on due Goal HPV. Due on due Goal AST (SGOT). Due on due Goal Hepatitis C screening. Due o n due Goal Zoster vaccine (). Due on due Goal BOAT CREW DECK HAND Paperwork. Due on due Goal Medication Recon [...] Zoster vaccine (1st). Due on due Goal PLATER HELPER Scanned. Due on due Goal Height. Due on d ue Goal OARS. Due on due Goal Weight. Due on d ue Goal ALT (SGPT). Due on due Goal Medication Recon ciliation. Due on due Goal BOAT CREW DECK HAND Paperwork. Due on due Goal PHQ-9. Due on du e Goal Unhealthy drug u se screening. Due on due Goal FIT-DNA. Due on due Goal Update Social History. Due o n due Goal FIT. Due on due Goal CT-Colonography. Due on due Goal AST (SGOT). Due on due Goal UDT. Due on due Goal PHQ-9. Due on du e Goal ALT (SGPT). Due on due Goal Height. Due on d ue Goal Weight. Due on d ue Goal Creatinine. Due on due Goal PLATER HELPER Scanned. Due on due Goal OARS. Due on due Goal Order Annual PT. Due on due Goal FIT-DNA. Due on due Goal BOAT CREW DECK HAND Paperwork. Due on due Goal Zoster vaccine [...] Goal ALT (SGPT). Due on due Goal BOAT CREW DECK HAND Paperwork. Due on due Goal OARS. Due on due Goal Update Social History. Due o n due Goal PLATER HELPER Scanned. Due on due Goal UDT. Due [...] due Goal HPV. Due on due Goal Weight. Due on [...] Goal Weight. Due on d ue Goal PLATER HELPER Scanned. Due on due Goal ALT (SGPT). Due on due Goal PHQ-9. Due on du e Goal CT-Colonography. Due on due Goal Creatinine. Due on due Goal Hepatitis C screening. Due o n due Goal UDT. Due on due Goal BOAT CREW DECK HAND Paperwork. Due on due Goal Zoster vaccine [...] due Goal Creatinine. Due on due Goal BOAT CREW DECK HAND Paperwork. Due on due Goal Medication Recon ciliation. Due on due Goal PLATER HELPER Scanned. Due on due Goal PHQ-9. Due on du e Goal Update Social History. Due o n due Goal Weight. Due on d ue Goal ALT (SGPT). Due on due Goal OARS. Due on due Goal UDT. Due on due Goal AST (SGOT). Due on due Goal Tobacco Use. Due on due Goal Medication Recon ciliation. Due on due Goal Height. Due on d ue Goal PLATER HELPER Scanned. Due on due Goal Creatinine. Due on due Goal UDT. Due on due Goal ALT (SGPT). Due on due Goal Review Allergy List. Due on due Goal BOAT CREW DECK HAND Paperwork. Due on due Goal Order Annual [...] Goal ALT (SGPT). Due on due Goal PLATER HELPER Scanned. Due on due Goal BOAT CREW DECK HAND Paperwork. Due on due Goal Height. Due on d ue Goal OARS. Due on due Goal Tobacco Use. Due on due Goal Update Social History. Due o n due Goal AST (SGOT). Due on due Goal Weight. Due on d ue Goal UDT. Due on due Goal Medication Recon ciliation. Due on due Goal ALT (SGPT). Due on due Goal PHQ-9. Due on du e Goal Height. Due on d ue Goal PLATER HELPER Scanned. Due on due Goal OARS. Due on due Goal Weight. Due on d ue Goal Creatinine. Due on due Goal AST (SGOT). Due on due Goal BOAT CREW DECK HAND Paperwork. Due on due Goal UDT. Due on due Goal Review Allergy List. Due on due Goal Update Social History. Due o n due Goal Order Annual PT. Due on due Goal Tobacco Use. Due on due Goal Height. Due on d ue Goal PHQ-9. Due on du e Goal BOAT CREW DECK HAND Paperwork. Due on due Goal Order Annual PT. Due on due Goal Tobacco Use. Due on due Goal Update Social History. Due o n due Goal OARS. Due on due Goal Weight. Due on d ue Goal PLATER HELPER Scanned. Due on due Goal Medication Recon ciliation. Due on due Goal UDT. Due on due Goal ALT (SGPT). Due on due Goal Review Allergy List. Due on due Goal Creatinine. Due on due Goal AST (SGOT). Due on due Goal BOAT CREW DECK HAND Paperwork. Due on due Goal Order Annual PT. Due on due Goal PLATER HELPER Scanned. Due on due Goal Creatinine. Due [...] Order Annual PT. Due on due Goal PLATER HELPER Scanned. Due on due Goal Weight. Due on d ue Goal Update Social History. Due o n due Goal BOAT CREW DECK HAND Paperwork. Due on due Goal Tobacco Use. Due on due Goal ALT (SGPT). Due on due Goal Creatinine. Due on due Goal Height. Due on d ue Goal Review Allergy List. Due on due Goal PHQ-9. Due on du e Goal BOAT CREW DECK HAND Paperwork. Due on due Goal Creatinine. Due on due Goal Weight. Due on [...] Order Annual PT. Due on due Goal PLATER HELPER Scanned. Due on due Goal Order Annual PT. Due on due Goal Weight. Due on d ue Goal OARS. Due on due Goal Creatinine. Due on due Goal Height. Due on d ue Goal Tobacco Use. Due on due Goal AST (SGOT). Due on due Goal PLATER HELPER Scanned. Due on due Goal BOAT CREW DECK HAND Paperwork. Due on due Goal Update Social History. Due o n due Goal UDT. Due on due Goal ALT (SGPT). Due on due Goal Medication Recon ciliation. Due on due Goal PHQ-9. Due on du e Goal Review Allergy List. Due on due Goal Order Annual PT. Due on due Goal PLATER HELPER Scanned. Due on due Goal Creatinine. Due on due Goal BOAT CREW DECK HAND Paperwork. Due on due Goal OARS. Due [...] Review Allergy List. Due on due Goal BOAT CREW DECK HAND Paperwork. Due on due Goal PLATER HELPER Scanned. Due on due Goal Medication Recon ciliation. Due on due Goal Creatinine. Due on due Goal Tobacco Use. Due on due Goal Height. Due on d ue Goal AST (SGOT). Due on due Goal ALT (SGPT). Due on due Goal PLATER HELPER Scanned. Due on due Goal AST (SGOT). Due on due Goal Creatinine. Due on due Goal BOAT CREW DECK HAND Paperwork. Due on due Goal OARS. Due [...] Goal Tobacco Use. Due on due Goal Order Annual PT. Due on due Goal Review Allergy List. Due on due Goal Tobacco Use. Due on due Goal Creatinine. Due on due Goal BOAT CREW DECK HAND Paperwork. Due on due Goal AST (SGOT). Due on due Goal PLATER HELPER Scanned. Due on due Goal Weight. Due on d ue Goal Medication Recon ciliation. Due on due Goal ALT (SGPT). Due on due Goal Height. Due on d ue Goal Update Social History. Due o n due Goal PHQ-9. Due on du e Goal UDT. Due on due Goal OARS. Due on due Goal Update Social History. Due o n due Goal Creatinine. Due on due Goal Tobacco Use. Due on due Goal BOAT CREW DECK HAND Paperwork. Due on due Goal PLATER HELPER Scanned. Due on due Goal Order Annual [...] d ue Goal PHQ-9. Due on du emma Appointment Belkis Manjarrez BOOKED Future Order: Lab Order Drug Tara t Def 22+ Classes (G0483), Ordered on: Ordered History Of Present Illness Encounter Date Complaint History Of Prese nt Illness Neck Pain The severity of the problem is moderate. Duration: chronic. The status of the symptoms are fluctuating. The frequency of pain is intermittent. Aggravating factors include climbing stairs, lifting, prolonged sitting and walking. Relieving factors include heating pad, ice, narcotic analgesics, stretching and changing positions. Pertinent negatives include bladder incontinence. Comments: Belkis richardson resents in clinic today for follow up and medication refill for ongoing low back pain. States lower back pain has been fluctuating since her MADONNA, level is 8/10.The patient's most recent symptom is that over the course of the past few weeks her hearing has greatly diminished. She believes it's related to her cancer because of how quickly it's deteriotating. Completed a course of antibiotics for this with no benefit. Notes she has an ENT appointment tomorrow.She is hopeful to receive TPIs in the near future and resume her SI joint injections. This will be on hold until she finishes her chemotherapy. She continues with chemotherapy treatment for her lung cancer and completed a full body and brain scan last week. Results showed her tumors have shrunk ~50% which she is happy about. Continues to complete infusions every 15 days. Through all of this she has remained active and goes on daily walks. Reports current medication regimen provides 50-60% pain relief. Inquires if she can start a different medication for the pain. Denies any side effects with current medication. No other concerns today. Comments: Belkis dylan resents virtually today for follow up and [...] tasks. No other concerns today. Comments: Belkis i s present here today [...] of pain is lower back. Comments: Belkis cristal s a 56 y/o woman here for follow up consult and medication refill regarding chronic low back pain. S/p SI joint injection 11/16/[address] Blakely provided >75% relief; plans to repeat procedure as needed. Pain has been stable since MADONNA and pain level averages 8/10.Reports that she will have to travel to [place] in January for work; notes that she will also have to travel back to [place] for work as well.Current medication regimen of Mandeville 5-325mg provides 50-60% pain relief for increased [...] ice, pain meds/drugs, stretching and changing positions. low back pain Severity level i s 4. Duration: chronic. The problem is stable. It occurs persistently. Location of pain is lower back. The client describes the pain as an ache. Comments: Belkis i s here for a virtual follow-up and medication management. States her pain has been stable since her MADONNA. Notes her pain has been more bothersome with her recent travel. Continues to find benefit with medication regimen.S/p SI joint injection 11/16/[address] Blakely provided >75% relief, though she still experienced discomfort on her recent long flight.Continues to use her Mandeville sparingly which she notices an appreciable benefit. Denies SE. No other concerns. low back pain Severity level i s 4. Duration: chronic. The problem is stable. It occurs persistently. Location of pain is lower back. The client describes the pain as an ache. Comments: Belkis i s here for a virtual follow-up and [...] at previous OV. Continues to use her Mandeville sparingly which she notices an appreciable benefit. [...] completed on August 02, 2021 at the [facility]. She is requesting to repeat injections late October as she is nervous for her 10 hour flight for a work related trip to [place]. Continues to use her Mandeville sparingly which she notices an appreciable benefit.Patient [...] with prescribed medication. Continues to take her Mandeville sparingly. This helps her maintain her lowest [...] active recently.Of note, she is traveling to [place] soon.She reports greater than 50% relief with her medication regimen. Denies any side effects. Presents on track with prescribed medication. Continues to take her Mandeville sparingly. This helps her maintain her lowest [...] with prescribed medication. Continues to take her Mandeville sparingly. This helps her maintain her lowest [...] ordered at previous OV.Continues to take her Mandeville sparingly. This helps her maintain her lowest [...] is due to recently traveling back from [place] to [place]. She spent the winter in [place]. Her worst complaint is her left side pain. She requests repeat TPI's as well as a repeat left SI joint injection. Previous TPI's and SI joint injection provided greater than 70% relief for over three months. She also notices functional improvements with the injections.Continues to take her Mandeville sparingly. This helps her maintain her lowest [...] OV. Notes she continues to benefit from Mandeville and requests a refill. Of note, she has been able to enjoy her time in [place]. Reports current medication regimen provides 50-60% pain [...] prolonged positioning during her car ride to [place]. Pain has slowly been returning to baseline. Notes she continues to benefit from Mandeville and requests a refill. Reports current medication [...] changing positions. Back Pain (comments) Belkis is charlaemma mooney with us today via [facility] Visit for follow up and medication refill. Low back pain persists this month, but medication does help to some extent. She looks forward to lumbar EVELIN scheduled for later today. Of note, patient plans to travel to [place] for 3 months starting on 02/02. She looks forward to being in the warm weather so she can be more active. She inquires about how to fill her medications while she is in [place]. Reports current medication regimen provides 50-60% pain [...] is charla mooney with us today via [employer] Virtual Visit for follow up and medication [...] is charla mooney with us today via [employer] Virtual Visit for follow up and medication [...] sitting and changing positions. Back Pain (comments) Patient is here for [...] morning. She will monitor pain levels for prison relief.Reports current medication regimen provides 50% pain relief and allows for increased functionality. Denies side effects from current medication regimen.No other concerns today. Back Pain Severity level i s 10. [...] meds/drugs, stretching, rest and sitting. Back Pain Severity level i s 7. Duration: chronic. The problem is worsening. It occurs persistently. The patient describes the pain as an ache. Symptoms are aggravated by bending, lifting, lying/rest, sitting, standing, twisting, housework and prolonged positioning. Symptoms are relieved by heat, ice, pain meds/drugs, stretching, sitting, changing positions, standing and walking. Back Pain (comments) Belkis return s for [...] SI joint injections. Dr. Henry is requesting [facility] takeover patient's pain management regimen. She would like order placed for L SI joint injection today.Patient is not accompanied today and has no further questions or other concerns. Back Pain Onset: gradual w ithout injury. [...] Assessment Date assessment Malignant neoplasm of pleura Sep impression Patient was recently diagnosed with stage 4 lung cancer. She has completed a course of radiation therapy and continues with chemotherapy. Last treatment completed 08/14/22. Last body scan showed ~50% reduction of her tumors. Currently established with [facility] and Mike assessment Chronic pain syndrome impression Belkis is a 56yo femal e that presents to the clinic for chronic low back and bilateral SI joint pain assessment Sacroiliitis impression Chronic bilateral SI joint pain (L>R), fluctuating since last OV. Reports 80% relief. S/p repeat LEFT SI joint injections 04/05/[address] Rey. Currently reports greater than 70% pain relief assessment Spinal stenosis, lumbar region A impression Chronic low back rosangela n, fluctuating since last OV. Lumbar MRI report 04/05/2019 from [facility] reviewed and showed:1. L5-S1 advanced disc degeneration with severe left foraminal stenosis.2. L4-5 2mm spondylolisthesis with mild central canal stenosis, facet arthopathy and moderate denerative disc disease.3. L3-4 moderate degenerative disc disease assessment Radiculopathy, lumbar region Sep impression Chronic low back rosangela n, fluctuating since last OV. Notes cold weather aggravates her pain. Notes of occasional radiating sx down LLE. Underwent PT in the past and continues home exercises with benefit. Denies recent flares or new concerns.BL L5-S1 TFESI on 01/19/[address] Jose provided more than 50% relief assessment Myalgia, other site impression Ongoing muscle spasms. TPIs have been beneficial in the past. assessment penitentiary (current) use of opiat e analgesic impression Patient presents wit h low back and L>R LE pain. Current regimen relieves 50-60% of the pain, does not cause significant side effects, and increases the patient's daily activity level. Requests to trial oxycodone today.Patient is currently prescribed 22.5 MME per day. Patient has been managing medications appropriately, and is not confused or oversedated during our office visit. Most recent UDT 07/18/22 returned (+) for oxycodone metabolites but this was prescribed by her oncologist and is appropriate. Appropriate to continue with opioid therapy assessment Encounter for therapeutic drug l evel monitoring Mental Status Date Cognitive Assessment Orientation - [place] ed to time, place, person, situation.Normal Orientation Patient Care Teams Name Effective Dates (start - stop) Status Members No Information
== END 2022-10-30 11:17 | disposition home or self-care (01) ==
PROVIDERS: PCP Family Medicine; Visit Provider Family Medicine
DX: I10 Essential (primary) hypertension (principal); E78.2 Mixed hyperlipidemia; E03.9 Hypothyroidism, unspecified
CPT/HCPCS: 80048; 80061

== ENCOUNTER 2022-11-27 08:55 | Outpatient (CLI) | payer BC, SELFPAY ==
--- OUTSIDE RECORDS SUMMARY | 2022-11-27 08:58 | XMS_ITS | Continuity of Care Document ---
Author Name Unknown Organization [facility] Address [address] [place] [id number] Care Team Providers Care Bedspread Seamer Name Role Phone [facility] Unavailable Unav ailable Procedures Procedure Date INJECT SACROILIAC JOINT Inj for sacroiliac jt anesth Inj for sacroiliac jt anesth INJ FORAMEN EPIDURAL L/S INJ FORAMEN EPIDURAL L/S Inj for sacroiliac jt anesth Advance Directives Directive Yes / No Effective Date File Name No Information Encounters Encounter Description Practice Location Reason(s) For Visit Diagnoses Date Provider Providers Copied on Encounter [facility], [address] [place] [address], [id number], [facility] No Information [facility]. [address] [place] [address], [id number], . tel:[phone] Referring Provider: Renetta Bush, [address] [place] [address], [id number]. tel:[phone] [facility], [address] [place] [address], [id number], [facility] No Information [facility]. [address] [place] [address], [id number], . tel:[phone] Referring Provider: Renetta Bush, [address] [place] [address], [id number]. tel:[phone] [facility], [address] [place], [place], [id number], [facility] No Information [facility]. [address] [place], [place], [id number], . tel:[phone] Referring Provider: Beth Vick, [address] [place], [address]. tel:[phone] [facility], [address], [place], [id number], [facility] No Information [facility]. [address] [place], [place], [id number], . tel:[phone] Referring Provider: Miles Jiménez, [address] [place], [address]. tel:[phone] Family History Family Member Type Diagnosis Age At Onset No Information Payers Payer name Insurance type Covered constitution party ID Authoriza ticarlton(s) No Information Social [...]
--- OUTSIDE RECORDS SUMMARY | 2022-11-27 08:58 | XMS_ITS | Continuity of Care Document ---
Author Name Unknown Organization [facility] enter Address [address] [place] [id number] Phone Care Team Providers Care Neck Band Operator Name Role Phone [facility] Unavailable Unava ilable Procedures Procedure Date INJECT SACROILIAC JOINT Inj for sacroiliac jt anesth Inj for sacroiliac jt anesth INJ FORAMEN EPIDURAL L/S INJ FORAMEN EPIDURAL L/S Advance Directives Directive Yes / No Effective Date File Name No Information Encounters Encounter Description Practice Location Reason(s) For Visit Diagnoses Date Provider Providers Copied on Encounter [facility], [address] [place] [address], [id number], tel:[phone] [place] [address] No Information 3 [facility]. [address] [place] [address], [id number], [place]. tel:[phone] Referring Provider: Miles Rey, [address] [place], [address] . tel:[phone] [facility], [address] [place] [address], [id number], tel:[phone] [place] [address] No Information 2 [facility]. [address] [place] [address], [id number], . tel:[phone] Referring Provider: Liam Blakely [employer] [address] [employer] [facility] [address], [place], [address]. tel:[phone] [facility], [address] [place] [address], [id number], tel:[phone] [facility] No Information 2 [facility]. [address] [place] [address], [id number], . tel:[phone] Referring Provider: Renetta Bush, [address] [facility], [place], [address] . tel:[phone] [facility], [address] [place] [address], [id number], tel:[phone] [facility] No Information 0 [facility]. [address] [place] [address], [id number], . tel:[phone] Referring Provider: Liam Blakely [employer] [address] [facility] [address], [place], [address]. tel:[phone] Family History Family Member Type Diagnosis Age At Onset No Information Payers Payer name Insurance type Covered republican ID Authordereka ticarlton(s) [employer] Ariel Garnica BL [id number] Social History Type Description Quantity Date [...]
--- OUTSIDE RECORDS SUMMARY | 2022-11-27 08:59 | XMS_ITS | Continuity of Care Document ---
Author Name Unknown Organization [facility] Address [address] [facility] [place] [address] Phone Care Team Providers Care Director Smb Sales Name Role Phone Murphy Chi Unavailable Unavailable [...] 1000 MG - Active Procedures Procedure Date OFFICE VISIT, EST TELEMEDICINE OFFICE/OUTPATIENT VISIT, EST [...] q3mo opiod tx OFFICE VISIT, EST TELEMEDICINE 21 Injection Sacroiliac Left Foll-up eval q3mo opiod tx OFFICE VISIT, EST TELEMEDICINE Foll-up eval q3mo opiod tx OFFICE VISIT, EST TELEMEDICINE 21 Foll-up eval q3mo opiod tx OFFICE VISIT, EST TELEMEDICINE INJ TRIGGER POINT, 1/ MUSCL Kenalog Triamcinolone acetonide inj Foll-up eval [...] Kenalog Triamcinolone acetonide inj INJ TRIGGER POINT, / MUSCL Foll-up eval q3mo opiod tx OFFICE/OUTPATIENT [...] Provider Providers Copied on Encounter OFFICE VISIT, [facility], [address] [place] [address], [id number] , [place] tel:[phone] [facility] [place] Neck Pain (chief complaint) Malignant neoplasm of pleuraChronic pain syndromeSacroilii tisSpinal stenosis, lumbar regionRadiculopat hy, lumbar regionMyalgia, other siteLong term (current) use of opiate analgesic 3 Kelsey Arrington. [address], [facility] [place], [id number] , [place]. tel:[phone] Referring Provider: Miles Jiménze, [address] [place], [address]. tel:[phone] OFFICE/OUTPAT IENT VISIT, [facility], [address] [place] [address], [id number] , [place] tel:[phone] [facility] Neck Pain (chief complaint) Malignant neoplasm of pleuraChronic pain syndromeSacroilii tisSpinal stenosis, lumbar regionRadiculopat hy, lumbar regionMyalgia, other siteLong term (current) use of opiate analgesicEncounte r for therapeutic drug level monitoring 3 Kelsey Arrington. [address] [place] [address] 100, [place], [place], [id number] , [place]. tel:[phone] Referring Provider: Miles Jiménez, [address] [place] [address], [address]. [phone] [facility], [address] [place] [address], [id number] , [place] tel:[phone] [facility] No Information 3 Kelsey Arrington. [address] [place] [address] 100, [place], [place], [id number] , [place]. tel:[phone] OFFICE VISIT, EST TELEMEDICINE [facility], [address] [place] [address], [id number] , [place] tel:[phone] [facility] Neck Pain (chief complaint) Malignant neoplasm of pleuraChronic pain syndromeSacroilii tisSpinal stenosis, lumbar regionRadiculopat hy, lumbar regionMyalgia, other siteLong term (current) use of opiate analgesic 3 Kelsey Arrington. [address] [place] [address] 100, [place], [place], [id number] , [place]. tel:[phone] Referring Provider: Miles Jiménez, [address] [place] [address], [address]. [phone] OFFICE VISIT, EST TELEMEDICINE [facility], [address] [place] [address], [id number] , [place] [phone] [facility] Neck Pain (chief complaint) Chronic pain syndromeSacroilii tisSpinal stenosis, lumbar regionRadiculopat hy, lumbar regionMyalgia, other siteLong term (current) use of opiate analgesicMalignan t neoplasm of pleura 3 Colekayla Arrington. [address] [facility] [address], [place], [id number] , [place]. tel:[phone] Referring Provider: Miles Jiménez, [address] [place] [address], [address]. tel:[phone] OFFICE/OUTPAT IENT VISIT, EST [facility], [address] [place] [address], [id number] , [place] tel:[phone] [facility] low back pain (chief complaint) Chronic pain syndromeSacroilii tisSpinal stenosis, lumbar regionRadiculopat hy, lumbar regionMyalgia, other siteLong term (current) use of opiate analgesicMalignan t neoplasm of pleuraEncounter for therapeutic drug level monitoring 0 3 Kelsey Arrington. [address] [place] [address] [address], [place], [id number] , [place]. [phone] Referring Provider: Miles Jiménez, [address] [place] [address], [address]. tel:[phone] [facility], [address] [place] [address], [id number] , [place] tel:[phone] [facility] No Information 3 Colehina Arrington. [address] [place] [address] [address], [place], [id number] , [place]. tel:[phone] OFFICE VISIT, EST TELEMEDICINE [facility], [address] [place] [address], [id number] , [place] tel:[phone] [facility] low back pain (chief complaint) Chronic pain syndromeSacroilii tisSpinal stenosis, lumbar regionRadiculopat hy, lumbar regionMyalgia, other siteLong term (current) use of opiate analgesic Apr-2 3 Kelsey Arrington. [address] [place] [address] [address], [place], [id number] , [place]. tel:[phone] Referring Provider: Miles Jiménez, [address] [place] [address], [address]. [phone] OFFICE VISIT, [facility] TELEMEDICINE [facility], [address] [place] [address], [id number] , [place] tel: [phone] [facility] low back pain (chief complaint) Spinal stenosis, lumbar regionSacroiliiti sMyalgia, other siteRadiculopathy , lumbar regionLong term (current) use of opiate analgesicChronic pain syndrome Apr-2 3 Jenny Campos. [address] [place] [address], [id number] , [place]. tel:[phone] Referring Provider: Miles Jiménez, [address] [place] [address], [address]. [phone] OFFICE/OUTPAT IENT VISIT, [facility], [address] [place] [address], [id number] , [place] tel:[phone] [facility] low back pain (chief complaint) SacroiliitisSpina l stenosis, lumbar regionRadiculopat hy, lumbar regionMyalgia, other siteLong term (current) use of opiate analgesic Apr-0 3 Kelsey Arrington. [address] [place] [address] [address], [place], [place], [id number] , [place]. tel:[phone] Referring Provider: Miles Jiménez, [address] [place] [address], [address]. tel:[phone] [facility], [address] [place] [address], [id number] , [place] tel:[phone] [facility] No Information Apr-0 3 Kelsey Arrington. [address] [place] [address] [address], [place], [place], [id number] , [place]. tel:[phone] [facility], [address] [place] [address], [id number] , [place] tel:[phone] [facility] Sacroiliitis, not elsewhere classified 3 Krissy Aquino. [address] [place] [address], [id number] , [place]. tel:[phone] Referring Provider: Miles Jiménez, [address] [place] [address], [address]. [phone] OFFICE VISIT, [facility] TELEMEDICINE [facility], [address] [place] [address], [id number] , [place] tel: [phone] [facility] low back pain (chief complaint) SacroiliitisSpina l stenosis, lumbar regionRadiculopat hy, lumbar regionMyalgia, other siteLong term (current) use of opiate analgesic 3 Kelsye Arrington. [address] [place] [address] [address], [place], [place], [id number] , [place]. tel:[phone] OFFICE VISIT, [facility] TELEMEDICINE [facility], [address] [place] [address], [id number] , [place] tel:[phone] [facility] low back pain (chief complaint) SacroiliitisSpina l stenosis, lumbar regionRadiculopat hy, lumbar regionMyalgia, other siteLong term (current) use of opiate analgesic 2 Colekayla Arrington. [address] [place] [address] [address], [place], [place], [id number] , [place]. tel:[phone] [facility], [address] [place] [address], [id number] , [place] tel:[phone] [facility] No Information 2 Colehina Arrington. [address] [place] [address] [address], [place], [place], [id number] , [place]. tel:[phone] Referring Provider: Miles Jiménez, [address] [place] [address], [address]. tel:[phone] OFFICE/OUTPAT IENT VISIT, [facility], [address] [place] [address], [id number] , [place] tel:[phone] [facility] low back pain (chief complaint) SacroiliitisSpina l stenosis, lumbar regionRadiculopat hy, lumbar regionMyalgia, other siteLong term (current) use of opiate analgesicOhiohealth Doctors Hospitale for therapeutic drug level monitoring Dec- 2 Kelsey Arrington. [address] [place] [address] [address], [place], [place], [id number] , [place]. [phone] Referring Provider: Miles Jiménez, [address] [place] [address], [address]. tel:[phone] OFFICE VISIT, EST TELEMEDICINE [facility], [address] [place] [address], [id number] , [place] [phone] [facility] low back pain (chief complaint) SacroiliitisSpina l stenosis, lumbar regionRadiculopat hy, lumbar regionMyalgia, other siteLong term (current) use of opiate analgesic Oct-3 2 Kelsey Arrington. [address] [place] [address] [address], [place], [place], [id number] , [place]. [phone] [facility], [address] [place] [address], [id number] , [place] [phone] [facility] Sacroiliitis, not elsewhere classified Sep-3 2 Reddy Wheeler. [facility], [address], [place], [address], [place]. [phone] Referring Provider: Miles Jiménez, [address] [place] [address], [address]. tel:[phone] OFFICE VISIT, EST TELEMEDICINE [facility], [address] [place] [address], [id number] , [place] [phone] [facility] low back pain (chief complaint) SacroiliitisSpina l stenosis, lumbar regionRadiculopat hy, lumbar regionMyalgia, other siteLong term (current) use of opiate analgesic Sep-2 2 Kelsey Arrington. [address] [place] [address] [address], [place], [place], [id number] , [place]. tel:[phone] Referring Provider: Miles Jiménez, [address] [place] [address], [address]. tel:[phone] [facility], [address] [place] [address], [id number] , [place] tel: [phone] [facility] No Information 2 Kelsey Arrington. [address] [place] [address] [address], [place], [place], [id number] , [place]. tel: [phone] Referring Provider: Miles Jiménez, [address] [place] [address], [address]. tel:[phone] OFFICE/OUTPAT IENT VISIT, [facility], [address] [place] [address], [id number] , [place] tel: [phone] [facility] low back pain (chief complaint) SacroiliitisSpina l stenosis, lumbar regionRadiculopat hy, lumbar regionMyalgia, other siteLong term (current) use of opiate analgesic 2 Kelsey Arrington. [address] [place] [address] [address], [place], [place], [id number] , [place]. tel: [phone] Referring Provider: Miles Jiménez, [address] [place] [address], [address]. tel:[phone] OFFICE VISIT, [facility] TELEMEDICINE [facility], [address] [place] [address], [id number] , [place] tel: [phone] [facility] Back Pain (chief complaint) SacroiliitisSpina l stenosis, lumbar regionRadiculopat hy, lumbar regionMyalgia, other siteLong term (current) use of opiate analgesic 2 Colehina Arrington. [address] [place] [address] [address], [place], [place], [id number] , [place]. tel: [phone] OFFICE VISIT, EST TELEMEDICINE [facility], [address] [place] [address], [id number] , [place] tel: [phone] [facility] Back Pain (chief complaint) SacroiliitisSpina l stenosis, lumbar regionRadiculopat hy, lumbar regionMyalgia, other siteLong term (current) use of opiate analgesic 2 Kelsey Arrington. [address] [place] [address] [address], [place] , [place], [id number] , [place]. tel: [phone] [facility], [address] [place] [address], [id number] , [place] tel: [phone] [facility] Sacroiliitis, not elsewhere classified 2 Eleazar aJckson. [address] [place] [address], [id number] , [place]. tel: [phone] Referring Provider: Miles Jiménez, [address] [place] [address], [address]. tel:[phone] OFFICE VISIT, EST TELEMEDICINE [facility], [address] [place] [address], [id number] , [place] tel: [phone] [facility] Back Pain (chief complaint) SacroiliitisSpina l stenosis, lumbar regionRadiculopat hy, lumbar regionMyalgia, other siteLong term (current) use of opiate analgesic 2 Kelsey Arrington. [address] [place] [address] [address] [address], [place], [place], [id number] , [place]. tel: [phone] Referring Provider: Miles Jiménez, [address] [place] [address], [address]. tel:[phone] OFFICE VISIT, EST TELEMEDICINE [facility], [address] [place] [address], [id number] , [place] tel: [phone] [facility] Back Pain (chief complaint) SacroiliitisSpina l stenosis, lumbar regionRadiculopat hy, lumbar regionMyalgia, other siteLong term (current) use of opiate analgesic 2 Kelsey Arrington. [address] [place] [address] [address], [place], [place], [id number] , [place]. tel: [phone] [facility], [address] [place] [address], [id number] , [place] tel:[phone] [facility] [place] No Information 2 Kelsey Arrington. [address] [facility] [address], [place], [id number] , [place]. tel:[phone] OFFICE/OUTPAT IENT VISIT, [facility], [address] [place] [address], [id number] , [place] tel: [phone] [facility] Back Pain (chief complaint) Myalgia, other siteSacroiliitisS lester stenosis, lumbar regionRadiculopat hy, lumbar regionLong term (current) use of opiate analgesicEncounte r for screening for other disorderEncounter for therapeutic drug level monitoring 2 Colehina Arrington. [address] [place] [address], [place], [id number] , [place]. tel: [phone] Referring Provider: Miles Jiménez, [address] [place] [address], [address]. [phone] OFFICE VISIT, [facility], [address] [place] [address], [id number] , [place] tel:[phone] [facility] [place] No Information 2 Kelsey Arrington. [address] [place] [address] 100, [place], [id number] , [place]. tel:[phone] Referring Provider: Miles Jiménez, [address] [place] [address], [address]. [phone] OFFICE VISIT, [facility], [address] [place] [address], [id number] , [place] tel:[phone] [facility] [place] Back Pain (chief complaint) Radiculopathy, lumbar regionSacroiliiti sSpinal stenosis, lumbar regionMyalgia, other siteLong term (current) use of opiate analgesic 2 Colehina Arrington. [address] [place] [address] [address] [facility] [address], [place], [id number] , [place]. tel: [phone] OFFICE VISIT, EST TELEMEDICINE [facility], [address] [place] [address], [id number] , [place] tel:[phone] [facility] [place] Back Pain (chief complaint) Radiculopathy, lumbar regionSacroiliiti sSpinal stenosis, lumbar regionMyalgia, other siteLong term (current) use of opiate analgesic Dec-2 - 1 Kelsey Arrington. [address] [facility] [address], [place], [place], [id number] , [place]. tel:[phone] [facility], [address] [place] [address], [id number] , [place] tel:[phone] [facility] [place] Sacroiliitis Dec-0 1 Eleazar Jackson. [address] [place] [address], [id number] , [place]. tel:[phone] Referring Provider: Miles Jiménez, [address] [place] [address], [address]. [phone] OFFICE VISIT, EST TELEMEDICINE [facility], [address] [place] [address], [id number] , [place] tel:[phone] [facility] Back Pain (chief complaint) Radiculopathy, lumbar regionSpinal stenosis, lumbar regionSacroiliiti sMyalgia, other siteLong term (current) use of opiate analgesic Dec-0 2- 1 Kelsey Arrington. [address] [place] [address] [address], [place], [place], [id number] , [place]. tel:[phone] Referring Provider: Miles Jiménez, [address] [place] [address], [address]. tel:[phone] OFFICE VISIT, EST TELEMEDICINE [facility], [address] [place] [address], [id number] , [place] [phone] [facility] Back Pain (chief complaint) Radiculopathy, lumbar regionSpinal stenosis, lumbar regionSacroiliiti sMyalgia, other siteLong term (current) use of opiate analgesic Nov-0 3- 1 Kelsey Arrington. [address], [place], [place], [id number] , [place]. tel:[phone] OFFICE VISIT, EST TELEMEDICINE [facility], [address] [place] [address], [id number] , [place] tel: [phone] [facility] Back Pain (chief complaint) Myalgia, other siteSacroiliitisR adiculopathy, lumbar regionSpinal stenosis, lumbar regionLong term (current) use of opiate analgesic Oct-0 - 1 Cole Murphy. [address] [place] [address] [address], [place], [place], [id number] , [place]. tel:[phone] Referring Provider: Miles Jiménez, [address] [place] [address], [address]. tel:[phone] [facility], [address] [place] [address], [id number] , [place] tel: [phone] [facility] Myalgia, other site Sep-1 0- 1 Cole Murphy. [address] [place] [address] [address], [place], [place], [id number] , [place]. tel:[phone] Referring Provider: Miles Jiménez, [address] [place] [address], [address]. [phone] OFFICE VISIT, EST TELEMEDICINE [facility], [address] [place] [address], [id number] , [place] tel:[phone] [facility] Back Pain (chief complaint) SacroiliitisRadic ulopathy, lumbar regionSpinal stenosis, lumbar regionLong term (current) use of opiate analgesicMyalgia, other site Sep-0 3- 1 Cole Murphy. [address] [place] [address] [address], [place], [place], [id number] , [place]. tel:[phone] Referring Provider: Miles Jiménez, [address] [place] [address], [address]. [phone] OFFICE VISIT, EST TELEMEDICINE [facility], [address] [place] [address], [id number] , [place] tel: [phone] [facility] Back Pain (chief complaint) SacroiliitisRadic ulopathy, lumbar regionSpinal stenosis, lumbar regionLong term (current) use of opiate analgesicMyalgia, other site 1 Colehina Arrington. [address] [place] [address] [address], [place], [place], [id number] , [place]. tel: [phone] Referring Provider: Miles Jiménez, [address] [place] [address], [address]. tel:[phone] OFFICE VISIT, EST TELEMEDICINE [facility], [address] [place] [address], [id number] , [place] tel: [phone] [facility] Back Pain (chief complaint) SacroiliitisRadic ulopathy, lumbar regionSpinal stenosis, lumbar regionLong term (current) use of opiate analgesicMyalgia, other site 1 Kelsey Arrington. [address] [place] [address] [address], [place], [place], [id number] , [place]. tel: [phone] Referring Provider: Miles Jiménez, [address] [place] [address], [address]. tel:[phone] OFFICE VISIT, EST TELEMEDICINE [facility], [address] [place] [address], [id number] , [place] tel: [phone] [facility] Back Pain (chief complaint) SacroiliitisRadic ulopathy, lumbar regionSpinal stenosis, lumbar regionLong term (current) use of opiate analgesicMyalgia, other site 1 Cole Murphy. [address] [place] [address] [address], [place], [place], [id number] , [place]. tel: [phone] Referring Provider: Miles Jiménez, [address] [place] [address], [address]. tel:[phone] OFFICE VISIT, EST TELEMEDICINE [facility], [address] [place] [address], [id number] , [place] tel:[phone] [facility] Back Pain (chief complaint) SacroiliitisRadic ulopathy, lumbar regionSpinal stenosis, lumbar regionLong term (current) use of opiate analgesicMyalgia, other site June-0 1 Kelsey Arrington. [address] [place] [address] [address], [place], [place], [id number] , [place]. tel:[phone] Referring Provider: Miles Jiménez, [address] [place] [address], [address]. [phone] [facility], [address] [place] [address], [id number] , [place] tel:[phone] [facility] Sacroiliitis Apr-2 1 Eleazar Jackson. [address] [place] [address], [id number] , [place]. tel:[phone] Referring Provider: Miles Jiménez, [address] [place] [address], [address]. [phone] OFFICE VISIT, EST TELEMEDICINE [facility], [address] [place] [address], [id number] , [place] tel:[phone] [facility] Back Pain (chief complaint) Radiculopathy, lumbar regionSpinal stenosis, lumbar regionLong term (current) use of opiate analgesicMyalgia, other siteSacroiliitis May-0 1 Kelsey Arrington. [address] [place] [address] [address], [place], [place], [id number] , [place]. tel:[phone] Referring Provider: Miles Jiménez, [address] [place] [address], [address]. tel:[phone] OFFICE VISIT, EST TELEMEDICINE [facility], [address] [place] [address], [id number] , [place] tel:[phone] [facility] Back Pain (chief complaint) Radiculopathy, lumbar regionSpinal stenosis, lumbar regionLong term (current) use of opiate analgesicMyalgia, other siteSacroiliitis Apr-0 1 Kelsey Arrington. [address] [place] [address] [address], [place], [place], [id number] , [place]. tel:[phone] Referring Provider: Miles Jiménez, [address] [place] [address], [address]. [phone] OFFICE VISIT, EST TELEMEDICINE [facility] [facility], [address] [place] [address], [id number] , [place] tel: [phone] [facility] Back Pain (chief complaint) Radiculopathy, lumbar regionSpinal stenosis, lumbar regionLong term (current) use of opiate analgesicSacroili itisMyalgia, other site 1 Kelsey Arrington. [address] [place] [address] [address], [place], [place], [id number] , [place]. tel:[phone] Referring Provider: Miles Jiménez, [address] [place] [address], [address]. [phone] [facility], [address] [place] [address], [id number] , [place] tel:[phone] [facility] No Information 1 Kelsey Arrington. [address] [place] [address] [address], [place], [place], [id number] , [place]. tel:[phone] OFFICE/OUTPAT IENT VISIT, [facility], [address] [place] [address], [id number] , [place] tel: [phone] [facility] Back Pain (chief complaint) Radiculopathy, lumbar regionSpinal stenosis, lumbar regionLong term (current) use of opiate analgesicSacroili itisMyalgia, other site 1 Kelsey Arrington. [address] [place] [address] [address], [place], [place], [id number] , [place]. tel:[phone] Referring Provider: Miles Jiménez, [address] [place] [address], [address]. [phone] OFFICE VISIT, EST TELEMEDICINE [facility], [address] [place] [address], [id number] , [place] tel:[phone] [facility] Back Pain (chief complaint) Radiculopathy, lumbar regionSpinal stenosis, lumbar regionLong term (current) use of opiate analgesicSacroili itisMyalgia, other site 0 Cole Murphy. [address] [place] [address] [address], [place], [id number] , [place]. [phone] Referring Provider: Miles Jiménez, [address] [place] [address], [address]. tel:[phone] [facility], [address] [place] [address], [id number] , [place] [phone] [facility] Radiculopathy, lumbar region 0 Reddy Wheeler. [facility], [address] [facility] [address], [place], [address], [place]. [phone] Referring Provider: Miles Jiménez, [address] [place] [address], [address]. tel:[phone] OFFICE VISIT, EST TELEMEDICINE [facility], [address] [place] [address], [id number] , [place] [phone] [facility] Back Pain (chief complaint) Radiculopathy, lumbar regionSpinal stenosis, lumbar regionLong term (current) use of opiate analgesicSacroili itisMyalgia, other site 0 Kelsey Arrington. [address] [place] [address] [address], [place], [id number] , [place]. [phone] Referring Provider: Miles Jiménez, [address] [place] [address], [address]. tel:[phone] OFFICE VISIT, EST TELEMEDICINE [facility], [address] [place] [address], [id number] , [place] [phone] [facility] Back Pain (chief complaint) Radiculopathy, lumbar regionSpinal stenosis, lumbar regionLong term (current) use of opiate analgesicSacroili itisMyalgia, other site 0 Kelsey Arrington. [address] [place] [address] [address], [place], [place], [id number] , [place]. tel:[phone] Referring Provider: Miles Jiménez, [address] [place] [address], [address]. [phone] OFFICE VISIT, [facility] TELEMEDICINE [facility], [address] [place] [address], [id number] , [place] tel:[phone] [facility] Back Pain (chief complaint) Radiculopathy, lumbar regionSpinal stenosis, lumbar regionLong term (current) use of opiate analgesicSacroili itisMyalgia, other site Sep- 0 Cole Murphy. [address] [place] [address] [address], [place], [place], [id number] , [place]. tel:[phone] Referring Provider: Miles Jiménez, [address] [place] [address], [address]. [phone] OFFICE/OUTPAT IENT VISIT, [facility], [address] [place] [address], [id number] , [place] tel:[phone] [facility] Back Pain (chief complaint) Radiculopathy, lumbar regionSpinal stenosis, lumbar regionLong term (current) use of opiate analgesicSacroili itisMyalgia, other site Sep- 0 Cole Murphy. [address] [place] [address] [address], [place], [place], [id number] , [place]. tel:[phone] Referring Provider: Miles Jiménez, [address] [place] [address], [address]. tel:[phone] [facility], [address] [place] [address], [id number] , [place] [phone] [facility] [place] Radiculopathy, lumbar region Aug- 0 Nava Campos. [address] [place] [address], [id number] , [place]. tel:[phone] Referring Provider: Miles Jiménez, [address] [place] [address], [address]. [phone] OFFICE VISIT, EST TELEMEDICINE [facility], [address] [place] [address], [id number] , [place] tel: [phone] [facility] [place] Back Pain (chief complaint) Radiculopathy, lumbar regionSpinal stenosis, lumbar regionLong term (current) use of opiate analgesicSacroili itis 0 Kelsey Arrington. [address] [place] [address] [address], [place], [place], [id number] , [place]. tel:[phone] Referring Provider: Miles Jiménez, [address] [place] [address], [address]. tel:[phone] [facility], [address] [place] [address], [id number] , [place] tel:[phone] [facility] [place] Radiculopathy, lumbar region James- 0 Kelsey Arrington. [address] [place] [address] [address], [place], [place], [id number] , [place]. tel: [phone] OFFICE VISIT, EST TELEMEDICINE [facility], [address] [place] [address], [id number] , [place] tel: [phone] [facility] [place] Back Pain (chief complaint) Radiculopathy, lumbar regionSpinal stenosis, lumbar regionLong term (current) use of opiate analgesicSacroili itis 0 Kelsey Arrington. [address] [place] [address] [address], [place], [place], [id number] , [place]. tel:[phone] Referring Provider: Miles Jiménez, [address] [place] [address], [address]. tel:[phone] OFFICE VISIT, EST TELEMEDICINE [facility], [address] [place] [address], [id number] , [place] tel:[phone] [facility] Back Pain (chief complaint) Low back painChronic pain syndromeRadiculop athy, lumbar regionSpinal stenosis, lumbar regionLong term (current) use of opiate analgesic 0 Kelsey Arrington. [address] [place] [address] [address], [place], [place], [id number] , [place]. tel:[phone] [facility], [address] [place] [address], [id number] , [place] tel: [phone] [facility] Low back pain 0 Will Miles. [address] [place] [address], [id number] , [place]. tel:[phone] Referring Provider: Miles Jiménez, [address] [place] [address], [address]. tel:[phone] OFFICE VISIT, EST TELEMEDICINE [facility], [address] [place] [address], [id number] , [place] tel:[phone] [facility] Back Pain (chief complaint) Chronic pain syndromeRadiculop athy, lumbar regionSpinal stenosis, lumbar regionLong term (current) use of opiate analgesic May- 0- 0 Kelsey Arrington. [address] [place] [address] [address], [place], [place], [id number] , [place]. tel:[phone] Referring Provider: Miles Jiménez, [address] [place] [address], [address]. [phone] OFFICE VISIT, [facility], [address] [place] [address], [id number] , [place] tel:[phone] [facility] Back Pain (chief complaint) Chronic pain syndromeRadiculop athy, lumbar regionSpinal stenosis, lumbar regionLong term (current) use of opiate analgesicLow back pain 0 Kelsey Arrington. [facility], [place], [place], [id number] , [place]. tel:[phone] Referring Provider: Miles Jiménez, [address] [place] [address], [address]. tel:[phone] OFFICE/OUTPAT IENT VISIT, [facility], [address] [place] [address], [id number] , [place] tel:[phone] [facility] Back Pain (chief complaint) Chronic pain syndromeOther intervertebral disc degeneration, lumbar regionRadiculopat hy, lumbar regionSpinal stenosis, lumbar regionEncounter for therapeutic drug level monitoringLong term (current) use of opiate analgesic Apr-0 0 Kelsey Arrington. [address], [place], [id number] , [place]. tel:[phone] Referring Provider: Abdifatah Henry, [facility] [address], [place], [address]. tel:[phone] Family History Family Member Type Diagnosis Age At Onset No Information Payers Payer name Insurance type Covered republican ID Authoriza ticarlton(s) Blue Cross Ariel Garnica BL [id number] Social History Type Description Quantity Date Captured Comments Alcohol Use Details Unknown Caffeine Use Details Unknown Tobacco Use Status Smoking Status No Information Sex Female Chief Complaint And Reason For Visit From encounter dated 11/15/2022 08:26'. Neck Pain (chief complaint). Description: The severity of the problem is mild. Duration: chronic. The problem has not changed. The frequency of pain is constant. Location of pain is lower left back. Pertinent negatives include bladder incontinence. Reason For Referral Reason For Referral No Information Plan Of Treatment Date Type Action Status Goal Review Allergy List. Due on due Goal HPV. Due on due Goal Lipid panel. Due on due Goal Creatinine. Due on due Goal ALT (SGPT). Due on due Goal OARS. Due on due Goal Order Annual PT. Due on due Goal HEAVY TRUCK DRIVER Paperwork. Due on due Goal UDT. Due on due Goal SPRING ASSEMBLER SUPERVISOR Scanned. Due on due Goal AST (SGOT). [...] e Goal OARS. Due on due Goal Weight. Due on d ue Goal Medication Recon ciliation. Due on due Goal Creatinine. Due on due Goal HEAVY TRUCK DRIVER Paperwork. Due on due Goal AST (SGOT). Due on due Goal ALT (SGPT). Due on due Goal Order Annual PT. Due on due Goal SPRING ASSEMBLER SUPERVISOR Scanned. Due on due Goal UDT. Due on due Goal Hepatitis C screening. Due o n due Goal Unhealthy drug u se screening. Due on due Goal Height. Due on d ue Goal Tobacco Use. Due on due Goal Review Allergy List. Due on due Goal CT-Colonography. Due on due Goal PHQ-9. Due on du e Goal FIT-DNA. Due on due Goal Zoster vaccine (1st). Due on due Goal Update Social History. Due o n due Goal HPV. Due on due Goal FIT. Due on due Goal Lipid panel. Due on due Goal SPRING ASSEMBLER SUPERVISOR Scanned. Due on due Goal HPV. Due on due Goal HEAVY TRUCK DRIVER Paperwork. Due on due Goal OARS. Due on due Goal AST (SGOT). Due on due Goal ALT (SGPT). Due on due Goal UDT. Due on due Goal Creatinine. Due on due Goal Order Annual PT. Due on due Goal Weight. Due on d ue Goal FIT-DNA. Due on due Goal PHQ-9. Due on du e Goal CT-Colonography. Due on due Goal Lipid [...] Order Annual PT. Due on due Goal Unhealthy drug u [...] Goal Height. Due on d ue Goal Hepatitis C screening. Due o n due Goal Lipid panel. Due on due Goal Tobacco Use. Due on due Goal FIT. Due on due Goal UDT. Due on due Goal AST (SGOT). Due on due Goal Creatinine. Due on due Goal HEAVY TRUCK DRIVER Paperwork. Due on due Goal SPRING ASSEMBLER SUPERVISOR Scanned. Due on due Goal OARS. Due on due Goal OARS. Due on due Goal Unhealthy drug u se screening. Due on due Goal Weight. Due on d ue Goal ALT (SGPT). Due on due Goal AST (SGOT). Due on due Goal Order Annual PT. Due on due Goal HEAVY TRUCK DRIVER Paperwork. Due on due Goal UDT. Due on due Goal SPRING ASSEMBLER SUPERVISOR Scanned. Due on due Goal Creatinine. Due on due Goal Review Allergy List. Due on due Goal Zoster vaccine (1st). Due on due Goal Hepatitis C screening. Due o n due Goal FIT-DNA. Due on due Goal PHQ-9. Due on du e Goal Tobacco Use. Due on due Goal HPV. Due on due Goal Update Social History. Due o n due Goal CT-Colonography. Due on due Goal Lipid panel. Due on 023 due Goal FIT. Due on due Goal Height. Due on d ue Goal Medication Recon ciliation. Due on due Goal Unhealthy drug u se screening. Due on due Goal Update Social History. Due o n due Goal PHQ-9. Due on du e Goal Zoster vaccine (1st). Due on due Goal OARS. Due on due Goal ALT (SGPT). Due on due Goal Creatinine. Due on due Goal SPRING ASSEMBLER SUPERVISOR Scanned. Due on due Goal UDT. Due on due Goal Order Annual PT. Due on due Goal HEAVY TRUCK DRIVER Paperwork. Due on due Goal AST (SGOT). Due on due Goal Lipid panel. Due on due Goal FIT-DNA. Due on due Goal Tobacco Use. Due on due Goal Medication Recon ciliation. Due on due Goal CT-Colonography. Due on due Goal Review Allergy List. Due on due Goal Hepatitis C screening. Due o n due Goal Height. Due on d ue Goal HPV. Due on due Goal FIT. Due on due Goal Weight. Due on d ue Goal HEAVY TRUCK DRIVER Paperwork. Due on due Goal Creatinine. Due on due Goal Order Annual PT. Due on due Goal ALT (SGPT). Due on due Goal UDT. Due on due Goal SPRING ASSEMBLER SUPERVISOR Scanned. Due on 023 due Goal OARS. [...] ue Goal FIT. Due on due Goal FIT-DNA. Due on due Goal CT-Colonography. Due on due Goal Hepatitis C screening. Due o n due Goal Update Social History. Due o n due Goal Review Allergy List. Due on due Goal Tobacco Use. Due on due Goal SPRING ASSEMBLER SUPERVISOR Scanned. Due on due Goal Review Allergy List. Due on due Goal Zoster vaccine (1st). Due on due Goal Creatinine. Due on due Goal HEAVY TRUCK DRIVER Paperwork. Due on due Goal Order Annual PT. Due on due Goal ALT (SGPT). Due on due Goal OARS. Due on due Goal UDT. Due on due Goal AST (SGOT). Due on due Goal FIT. Due on due Goal Tobacco Use. Due on due Goal CT-Colonography. Due on due Goal FIT-DNA. Due on due Goal Lipid panel. Due on due Goal HPV. Due on due Goal Unhealthy drug u se screening. Due on due Goal Weight. Due on d ue Goal PHQ-9. Due on du e Goal Hepatitis C screening. Due o n due Goal Height. Due on d ue Goal Update Social History. Due o n due Goal Medication Recon ciliation. Due on due Goal Creatinine. Due on due Goal ALT (SGPT). Due on due Goal Order Annual PT. Due on due Goal HEAVY TRUCK DRIVER Paperwork. Due on due Goal OARS. Due on due Goal UDT. Due on due Goal SPRING ASSEMBLER SUPERVISOR Scanned. Due on due Goal Update Social History. [...] due Goal UDT. Due on due Goal SPRING ASSEMBLER SUPERVISOR Scanned. Due on due Goal ALT (SGPT). Due on due Goal AST (SGOT). Due on due Goal Order Annual PT. Due on due Goal OARS. Due on due Goal HEAVY TRUCK DRIVER Paperwork. Due on due Goal Review Allergy [...] Zoster vaccine (1st). Due on due Goal SPRING ASSEMBLER SUPERVISOR Scanned. Due on due Goal AST (SGOT). Due on due Goal UDT. Due on due Goal OARS. Due on due Goal Order Annual PT. Due on due Goal ALT (SGPT). Due on due Goal HEAVY TRUCK DRIVER Paperwork. Due on due Goal Creatinine. Due [...] (SGPT). Due on due Goal Zoster vaccine (1st). Due on due Goal Medication Recon ciliation. Due on due Goal AST (SGOT). Due on due Goal HEAVY TRUCK DRIVER Paperwork. Due on due Goal SPRING ASSEMBLER SUPERVISOR Scanned. Due on due Goal OARS. Due [...] on due Goal Tobacco Use. Due on 022 due Goal HEAVY TRUCK DRIVER Paperwork. Due on due Goal Creatinine. Due on due Goal UDT. Due on due Goal SPRING ASSEMBLER SUPERVISOR Scanned. Due on due Goal Order Annual [...] Order Annual PT. Due on due Goal SPRING ASSEMBLER SUPERVISOR Scanned. Due on due Goal UDT. Due on due Goal Creatinine. Due on due Goal HEAVY TRUCK DRIVER Paperwork. Due on due Goal Weight. Due [...] Goal AST (SGOT). Due on due Goal SPRING ASSEMBLER SUPERVISOR Scanned. Due on due Goal Height. Due on d ue Goal UDT. Due on due Goal Order Annual PT. Due on due Goal OARS. Due on due Goal Creatinine. Due on due Goal ALT (SGPT). Due on due Goal HEAVY TRUCK DRIVER Paperwork. Due on due Goal Weight. Due [...] Goal Lipid panel. Due on due Goal SPRING ASSEMBLER SUPERVISOR Scanned. Due on due Goal Tobacco Use. Due on due Goal Hepatitis C screening. Due o n due Goal UDT. Due on due Goal Creatinine. Due on due Goal HEAVY TRUCK DRIVER Paperwork. Due on due Goal ALT (SGPT). [...] Order Annual PT. Due on due Goal HEAVY TRUCK DRIVER Paperwork. Due on due Goal SPRING ASSEMBLER SUPERVISOR Scanned. Due on due Goal OARS. Due [...] Goal Weight. Due on d ue Goal SPRING ASSEMBLER SUPERVISOR Scanned. Due on due Goal Order Annual PT. Due on due Goal AST (SGOT). Due on due Goal HEAVY TRUCK DRIVER Paperwork. Due on due Goal Creatinine. Due [...] Social History. Due o n due Goal SPRING ASSEMBLER SUPERVISOR Scanned. Due on due Goal AST (SGOT). [...] Goal ALT (SGPT). Due on due Goal HEAVY TRUCK DRIVER Paperwork. Due on due Goal Order Annual PT. Due on due Goal UDT. Due on due Goal Creatinine. Due on due Goal OARS. Due on due Goal AST (SGOT). Due on due Goal FIT-DNA. Due on due Goal UDT. Due on due Goal ALT (SGPT). Due on due Goal Creatinine. Due on due Goal SPRING ASSEMBLER SUPERVISOR Scanned. Due on due Goal Order Annual PT. Due on due Goal HEAVY TRUCK DRIVER Paperwork. Due on due Goal Review Allergy [...] Goal ALT (SGPT). Due on due Goal HEAVY TRUCK DRIVER Paperwork. Due on due Goal Order Annual PT. Due on due Goal OARS. Due on due Goal SPRING ASSEMBLER SUPERVISOR Scanned. Due on due Goal Medication Recon [...] Order Annual PT. Due on due Goal SPRING ASSEMBLER SUPERVISOR Scanned. Due on due Goal ALT (SGPT). Due on due Goal Creatinine. Due on due Goal UDT. Due on due Goal HEAVY TRUCK DRIVER Paperwork. Due on due Goal OARS. Due on due Goal Update Social History. Due o n due Goal Review Allergy List. Due on due Goal HEAVY TRUCK DRIVER Paperwork. Due on due Goal Update Social History. Due o n due Goal Review Allergy List. Due on due Goal Creatinine. Due on due Goal SPRING ASSEMBLER SUPERVISOR Scanned. Due on due Goal UDT. Due [...] e Goal Creatinine. Due on due Goal HEAVY TRUCK DRIVER Paperwork. Due on due Goal SPRING ASSEMBLER SUPERVISOR Scanned. Due on due Goal Order Annual PT. Due on due Goal OARS. Due on due Goal AST (SGOT). Due on due Goal Medication Recon ciliation. Due on due Goal Weight. Due on d ue Goal Creatinine. Due on due Goal HEAVY TRUCK DRIVER Paperwork. Due on due Goal SPRING ASSEMBLER SUPERVISOR Scanned. Due on due Goal Order Annual [...] e Goal Creatinine. Due on due Goal HEAVY TRUCK DRIVER Paperwork. Due on due Goal SPRING ASSEMBLER SUPERVISOR Scanned. Due on due Goal Order Annual [...] e Goal Creatinine. Due on due Goal HEAVY TRUCK DRIVER Paperwork. Due on due Goal SPRING ASSEMBLER SUPERVISOR Scanned. Due on due Goal Order Annual PT. Due on due Goal OARS. Due on due Goal AST (SGOT). Due on due Goal Creatinine. Due on due Goal HEAVY TRUCK DRIVER Paperwork. Due on due Goal SPRING ASSEMBLER SUPERVISOR Scanned. Due on due Goal Order Annual [...] e Goal Creatinine. Due on due Goal HEAVY TRUCK DRIVER Paperwork. Due on due Goal SPRING ASSEMBLER SUPERVISOR Scanned. Due on due Goal Order Annual PT. Due on due Goal OARS. Due on due Goal AST (SGOT). Due on due Goal Creatinine. Due on due Goal HEAVY TRUCK DRIVER Paperwork. Due on due Goal SPRING ASSEMBLER SUPERVISOR Scanned. Due on due Goal Order Annual [...] Order Annual PT. Due on due Goal SPRING ASSEMBLER SUPERVISOR Scanned. Due on due Goal HEAVY TRUCK DRIVER Paperwork. Due on due Goal Creatinine. Due [...] e Goal Creatinine. Due on due Goal HEAVY TRUCK DRIVER Paperwork. Due on due Goal SPRING ASSEMBLER SUPERVISOR Scanned. Due on due Goal Order Annual [...] e Goal Creatinine. Due on due Goal HEAVY TRUCK DRIVER Paperwork. Due on due Goal SPRING ASSEMBLER SUPERVISOR Scanned. Due on due Goal Order Annual [...] e Goal Creatinine. Due on due Goal HEAVY TRUCK DRIVER Paperwork. Due on due Goal SPRING ASSEMBLER SUPERVISOR Scanned. Due on due Goal Order Annual PT. Due on due Goal OARS. Due on due Goal AST (SGOT). Due on due Goal Creatinine. Due on due Goal HEAVY TRUCK DRIVER Paperwork. Due on due Goal SPRING ASSEMBLER SUPERVISOR Scanned. Due on due Goal Order Annual PT. Due on due Goal OARS. Due on due Goal AST (SGOT). Due on due Goal ALT (SGPT). Due on due Goal Weight. Due on d ue Goal Review Allergy List. Due on due Goal Height. Due on d ue Goal PHQ-9. Due on du e Goal UDT. Due on due Goal Update [...] Order Annual PT. Due on due Goal SPRING ASSEMBLER SUPERVISOR Scanned. Due on due Goal HEAVY TRUCK DRIVER Paperwork. Due on due Goal Creatinine. Due [...] ue Goal Creatinine. Due on due Goal HEAVY TRUCK DRIVER Paperwork. Due on due Goal SPRING ASSEMBLER SUPERVISOR Scanned. Due on due Goal Order Annual PT. Due on due Goal OARS. Due on due Goal AST (SGOT). Due on due Appointment Belkis Manjarrez BOOKED Appointment Belkis Manjarrez #2 1522 Left Repeat Repeat Sacroiliac Join BOOKED Future Order: Lab Order Drug Tara t Def 22+ Classes (G0483), Ordered on: Ordered History Of Present Illness Encounter Date Complaint History Of Prese nt Illness Neck Pain The severity of the problem is mild. Duration: chronic. The problem has not changed. The frequency of pain is constant. Location of pain is lower left back. Pertinent negatives include bladder incontinence. Comments: Belkis richardson resents virtually today for follow up and medication refill for ongoing low back pain. States lower back pain has been stable overall and at a level 4/10.She followed up with an ENT yesterday and had tubes put in her ear to hopefully help with her hearing loss. Also completed an infusion and blood draw which went well. Her current plan is to continue with infusions every 21 days and complete scans on her brain and lungs in 6 weeks to monitor the size of her tumors. May need to start another round of chemotherapy if they have not shrunk.Patient requests to repeat her SI joint injections before she may need to start chemotherapy again. Approved with oncologist since off chemotherapy for now. Would like to schedule for the same day as her next IOV.Reports current medication regimen provides 50-60% pain relief. Denies any side effects with current medication. No other concerns today. Neck Pain The [...] medication. No other concerns today. Comments: Belkis richardson resents virtually today for [...] changed. The frequency of pain is constant. Comments: Belkis richardson resents virtually today for [...] lower back. Pertinent negatives include bladder incontinence. low back pain Severity level i s [...] that she will have to travel to [place] in January for work; notes that she will also have to travel back to [place] for work as well.Current medication regimen of [place] 5-325mg provides 50-60% pain relief for increased [...] her pain has been stable since her AMDONNA. Notes her pain has been more bothersome with her recent travel. Continues to find benefit with medication regimen.S/p SI joint injection 11/16/[address] Blakely provided >75% relief, though she still experienced discomfort on her recent long flight.Continues to use her [place] sparingly which she notices an appreciable benefit. [...] at previous OV. Continues to use her [place] sparingly which she notices an appreciable benefit. [...] completed on August 02, 2021 at the [facility]. She is requesting to repeat injections late October as she is nervous for her 10 hour flight for a work related trip to [place]. Continues to use her [place] sparingly which she notices an appreciable benefit.Patient [...] with prescribed medication. Continues to take her [place] sparingly. This helps her maintain her lowest [...] active recently.Of note, she is traveling to [place] soon.She reports greater than 50% relief with her medication regimen. Denies any side effects. Presents on track with prescribed medication. Continues to take her [place] sparingly. This helps her maintain her lowest [...] with prescribed medication. Continues to take her [place] sparingly. This helps her maintain her lowest [...] and changing positions. Comments: Belkis bee s here for follow-up, [...] ordered at previous OV.Continues to take her [place] sparingly. This helps her maintain her lowest [...] is due to recently traveling back from [place] to [place]. She spent the winter in [place]. Her worst complaint is her left side pain. She requests repeat TPI's as well as a repeat left SI joint injection. Previous TPI's and SI joint injection provided greater than 70% relief for over three months. She also notices functional improvements with the injections.Continues to take her [place] sparingly. This helps her maintain her lowest [...] stretching and changing positions. Back Pain (comments) Blekis is charla ting with us today via [employer] [facility] for follow up and medication refill. She is followed for lower back and SI joint pain. Reports overall pain has been stable since last OV. Notes she continues to benefit from [place] and requests a refill. Of note, she has been able to enjoy her time in [place]. Reports current medication regimen provides 50-60% pain [...] prolonged positioning during her car ride to [place]. Pain has slowly been returning to baseline. Notes she continues to benefit from [place] and requests a refill. Reports current medication [...] Of note, patient plans to travel to [place] for 3 months starting on 02/02. She looks forward to being in the warm weather so she can be more active. She inquires about how to fill her medications while she is in [place]. Reports current medication regimen provides 50-60% pain [...] is charlaemma mooney with us today via [employer] [facility] Visit for follow up and medication [...] today. Back Pain (comments) Belkis is charla alvarog with us today via [employer] [facility] Visit for follow up and medication [...] today. Back Pain (comments) Belkis is charla ting [...] sitting, chiropractic, standing and walking. Back Pain Severity level i s 6. [...] extremity pain. S/p BL L5-S1 EVELIN on 7/20 was more beneficial than previous SI joint [...] morning. She will monitor pain levels for supervisor intermediates relief.Reports current medication regimen provides 50% pain [...] rest and sitting. Back Pain (comments) Belkis return s for [...] SI joint injections. Dr. Henry is requesting [facility] takeover patient's pain management regimen. 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 She has completed a course of radiation therapy and continues with chemotherapy. Last treatment completed 08/14/22. Last body scan showed ~50% reduction of her tumors. Current regimen includes infusions every 21 days and brain/lung scans every 6 weeks. Currently established with [facility] and Mike assessment Chronic pain syndrome impression Belkis is a 57yo femal e that presents for chronic low back and bilateral SI joint pain assessment Sacroiliitis impression Chronic bilateral SI joint pain (L>R), stable since last OV. requests to repeat her SI joint injections before she may need to start chemotherapy again. Approved with oncologist since off chemotherapy for now.Forwarded/Pertinent History: S/p repeat LEFT SI joint injections 04/05/[address] Rey. assessment Spinal stenosis, lumbar region S impression Chronic low back rosangela n, stable since last OV. Forwarded/Pertinent History:Lumbar MRI report 04/05/2019 from [facility] reviewed and showed:1. L5-S1 advanced disc degeneration with severe left foraminal stenosis.2. L4-5 2mm spondylolisthesis with mild central canal stenosis, facet arthopathy and moderate denerative disc disease.3. L3-4 moderate degenerative disc disease assessment Radiculopathy, lumbar region Oct impression Chronic low back rosangela n, stable [...] have been beneficial in the past. assessment supervisor intermediates (current) use of opiat e analgesic impression Patient presents wit h low back and L>R LE pain. Current regimen relieves 50-60% of the pain, does not cause significant side effects, and increases the patient's daily activity level. Presents on track.Patient is currently prescribed 22.5 MME per day. Patient has been managing medications appropriately, and is not confused or oversedated during our office visit. Most recent UDT 10/16/22 reviewed and consistent with current medication regimen. Appropriate to continue with opioid therapy Mental Status Date Cognitive Assessment Orientation - [place] ed to time, place, person, situation. Patient Care Teams Name Effective Dates (start - stop) Status Members No Information
--- NOTE | 2022-11-27 09:15 | CRLHL7_ITS ---
For Patients: As a result of the Cures Act, medical imaging exams and procedure reports are released immediately into your electronic medical record. You may view this report before your referring provider. If you have questions, please contact your health care provider. BILATERAL SCREENING MAMMOGRAM WITH COMPUTER-AIDED DETECTION AND TOMOSYNTHESIS TECHNIQUE: CC and MLO views were obtained. These mammographic images have been obtained using full-field digital technique. These mammographic images were interpreted with the benefit of computer-aided detection. Breast tomosynthesis was used in this interpretation. COMPARISON FILM: 11/05/21, 10/24/20, 11/04/17. FINDINGS: There are scattered areas of fibroglandular density. IMPRESSION: There is no radiographic evidence for malignancy. ASSESSMENT: BI-RADS Category 1: Negative RECOMMENDATION: Routine screening mammogram in 1 year. A lay language report of this examination will be provided to the patient. ANDRES PAULA M.D. Diagnostic Radiologist [email or web address] MARTHA/iris Transcribed: 11/28/2022, 6:[address]/Dictated by: Andres Paula MD @ 11/28/2022 1:20:00 PM (Electronically Signed)
== END 2022-11-27 08:56 | disposition home or self-care (01) ==
LOC: MAMMO 08:56
PROVIDERS: PCP Family Medicine; Visit Provider Family Medicine
DX: Z12.31 Encounter for screening mammogram for malignant neoplasm of breast (principal)
CPT/HCPCS: 77063; 77067

== ENCOUNTER 2022-12-04 09:00 | Outpatient (RCR) | payer BC, SELFPAY ==
--- NOTE | 2022-06-26 15:08 | URNOTE ---
Request received for authorization for Carboplatin (J9045), Etoposide (J9181), Fosaprepitant (J1453), Aloxi (Palonosetron (J2469), Neulasta (J2506), Atezolizumab (J9022). Prior authorization is approved from 07/08/2022 to 11/11/22 by Maggie WHITING as pt carries [facility]. Ref# [id number]: Carboplatin (J9045) 750mg every 21 days, 6 treatments/ 90 units Etoposide (J9181) 180mg every 21days on day 1,2,3, 18 treatments/ 324 units. Fosaprepitant (J1453) PA not required Aloxi (Palonosetron) (J2469) PA not required Neulasta (J2506) 6mg every 21days, 6 treatments/ 72 units. Atezolizumab (J9022) 1200mg every 21 days, 6 treatments/ 720 units.
--- NOTE | 2022-07-02 09:04 | ONC.NURNOTE ---
Tobacco Cessation: Belkis has been actiively decreasing # ciagarettes per day- currently reports 3-4 cigarettes/ day Seeking resources for tobacco cessation [facility] handouts given patient to review and plans to contact Dr Trimble for discussion of additional prescription to support OTC nicotine replacement options- aware of oral options
--- NOTE | 2022-07-02 09:07 | ONC.NURNOTE ---
Discussed referrals to dietitian and [employer] teacher social service referral placed will follow up on MNT at time of cycle 2 curently appetite is impacted by taste changes from XRT to brain, and has questions about supporting self with diet during chemotherapy directed to handout in binder and will review again after C#1
--- NOTE | 2022-07-02 09:10 | ONC.NURNOTE ---
New Chemo teaching with Belkis and - greater than 60 minutes Reviewed possible side effects of carbo, etoposide and atezulizamab discussed option of OnPro- which patient Belkis prefers reviewed after hours ph#'s changes that require a call to [facility] or ER visit if after hours- including fever, change in breathing, diarrhea, rash, change in activity tolerance, uncontrolled N/V reviewed handouts in patient binder questions addressed from and Belkis questions about port addressed, and they were able to examine the port a cath model Belkis has concerns about diet and nutrition- to continue to discuss and may place referral after 1 st cycle Belkis with questions about support for tobacco cessation- see NN consents and ELIA reviewed and signed
[2022-07-08 09:06] LABS: Eosinophils Absolute Auto 0.01 K/uL (0.00-0.50); Eosinophils Percent Auto 0.1 % (0.0-7.0); Hematocrit 34.5 % (33.0-51.0); Hemoglobin* 11.2 gm/dL (12.0-16.0); Immature Granulocytes Abs Auto 0.09 K/uL (0.00-0.30); Immature Granulocytes Pct Auto 1.1 %; Lymphocytes Percent Auto 3.7 % (20-44); Mean Corpuscular HGB Conc 33 gm/dL (32-36); Mean Corpuscular Hemoglobin 29 pg (26-34); Mean Corpuscular Volume 89 fL (80-100); Monocytes Percent Auto 4.4 % (0.0-11.0); Neutrophils Percent Auto 90.7 % (42.0-72.0); Platelet Count* 171 K/uL (140-440); RDW Coefficient of Variation % 17.5 % (11.5-15.5); Red Blood Count 3.88 m/uL (4.00-5.20); White Blood Count* 8.38 K/uL (4.50-11.00)
[2022-07-08 09:08] LABS: Slide Review Reflex No
[2022-07-08 09:23] LABS: Albumin* 3.9 g/dL (3.3-5.0); Chloride* 103 mmol/L (96-114); Potassium* 4.2 mmol/L (3.6-5.1); Sodium* 136 mmol/L (135-149)
[2022-07-08 09:26] LABS: Alanine Aminotransferase* 24 U/L (4-35); Alkaline Phosphatase* 76 U/L (40-150); Aspartate Amino Transferase* 22 U/L (12-35); Bilirubin Total* 0.4 mg/dL (0.1-1.5); Blood Urea Nitrogen* 32 mg/dL (7-30); Carbon Dioxide* 26 mmol/L (20-32); Creatinine* 0.6 mg/dL (0.5-1.5); Est. Creatinine Clearance* 99.39; Estimated Glomerular Filt Rate 104 ml/min; Glucose* 113 mg/dL (60-115); Total Protein* 6.1 g/dL (6.0-8.3)
[2022-07-08 09:27] LABS: Calcium* 8.6 mg/dL (8.4-10.6)
[2022-07-08 10:01] LABS: Thyroid Stimulating Hormone* < 0.015 uIU/mL (0.270-4.20)
--- NOTE | 2022-07-08 10:46 | ONC.PROVNOTE ---
[facility] Provider Note Clinic Note Narrative: QT/QTc prolongation Ms. Manjarrez follows at our clinic for medical management of metastatic lung cancer. Today she is receiving cycle 1 day 1 of carboplatin and etoposide. Her antiemetic regimen for home is to include olanzapine and ondansetron, as well as prochlorperazine. Infusion day antiemetics for day 1 include emend, aloxi and dexamethasone. Ms. Manjarrez is noted to have a hx of QT prolongation. EKG 05/27/22 QT/QTc 404/454 ms. Normal sinus rhythm. Plan - olanzapine 2.5-5mg q hs x 4 days, starting with evening after chemotherapy. Hold for sedation. DO not take with other sedating medications. - aloxi has less risk for QT prolongation. 1st home going drug is prochlorperazine for breakthrough nausea. Ondansetron is 2nd choice if prochlorperazine ineffective. Dose is 4mg, not 8. Discussed with Ms. Manjarrez and her .
[2022-07-08] MEDS: dexAMETHasone 10 MG in 0.9 % SODIUM CHLORIDE 100 ml 100 ML 420 MG IVPB (10:58)
[2022-07-08] MEDS: PALONOSETRON 0.25 MG/5 ML inj IV (10:58)
[2022-07-08] MEDS: FOSAPREPITANT 150 MG inj 150 MG in 0.9 % SODIUM CHLORIDE 250 ml 250 ML 780 MG IVPB (11:16)
[2022-07-09 08:07] VITALS: BP 159/79; PULSE 70; RESP 16; TEMP 37; O2SAT 95
[2022-07-09] MEDS: SODIUM CHLORIDE 0.9 % (FLUSH) 10 ML SYRINGE IVF (09:42)
[2022-07-09] MEDS: HEPARIN 500 UNIT/5 ML SYRINGE IVF (09:42)
[2022-07-10 08:22] VITALS: BP 125/69; PULSE 61; RESP 16; TEMP 36.6; O2SAT 95
[2022-07-10] MEDS: HEPARIN 500 UNIT/5 ML SYRINGE IVF (11:42)
[2022-07-10] MEDS: SODIUM CHLORIDE 0.9 % (FLUSH) 10 ML SYRINGE IVF (11:42)
[2022-07-10 11:52] LABS: Cortisol, Serum 3.6 ug/dL
[2022-07-10 12:15] LABS: Total T3 79 ng/dL (80-200)
[2022-07-10 23:10] LABS: Total T4, Thyroxine 9.05 ug/dL (4.50-11.70)
[2022-07-11 08:27] VITALS: BP 137/56; PULSE 60; RESP 16; TEMP 35.7; O2SAT 96
[2022-07-11] MEDS: PEGFILGRASTIM 6 MG/0.6 ML SYRINGE SUBCUT (09:03)
[2022-07-11] MEDS: SODIUM CHLORIDE 0.9 % (FLUSH) 10 ML SYRINGE IVF (09:07)
[2022-07-11] MEDS: HEPARIN 500 UNIT/5 ML SYRINGE IVF (09:07)
--- NOTE | 2022-07-11 15:43 | ONC.NURNOTE ---
Thyroid labs reviewed by Dr. Driver, per Dr. Driver she would like to hold the Tecentriq for cycle [address] Trimble review pt's thyroid labs and advise pt regarding thyroid medication. Pt will consult with Neisha prior to cycle 2, to determine if labs are improved. Labs faxed to Dr. Trimble and message left for him to review and help manage pt's care.
--- NOTE | 2022-07-12 09:49 | PC.NURSE ---
Addendum entered by Alanis Acosta RN 07/12/22 09:57: Also of note, Dr. Trimble is planning to repeat labs in 6-8 weeks. Original Note: Received a call from Dr. Trimble's nurse stating that MD reviewed labs and will instruct pt to decrease her Synthroid to 75 mcg daily. PCP RN will call pt directly with instructions.
--- NOTE | 2022-07-23 11:35 | ONC.NURNOTE ---
Addendum entered by Marci Castro RN 07/26/22 10:20: Patient in office today, and rash is improved per patient. She has not been using eugenia hose, and what remains of the rash is just present where the socks would lie. She was at a shoe shop and they suggested using different socks that have cotton in them and are for sensitive skin. Patient informed that this would be good to use, better this than nothing. Ankles about 2+ and shins to knees are 1+. Patient has an appointment with Dr. hutson on Friday for more recommendations or suggestion to see PCP. Original Note: Patient called and states that she has a rash present under where her eugenia hose are on her bilateral legs. She has been wearing them from about 5pm-8am, and washing them daily. Swelling is roughly the same as it has been, and does not seem to fluxuate throughout the day. The rash is not painful or itchy and is just where the socks are positioned. Patient instructed to continue doing as she has and to possibly try some powder on her legs prior to putting the socks on tonight to see if that helps. Patient will call if becomes painful/itchy, or increase in swelling.
[2022-07-26 10:14] LABS: Basophils Percent Auto 1.3 % (0.0-3.0); Hematocrit 24.6 % (33.0-51.0); Immature Granulocytes Pct Auto 26.8 %; Lymphocytes Percent Auto 9.1 % (20-44); Mean Corpuscular HGB Conc 33 gm/dL (32-36); Mean Corpuscular Hemoglobin 29 pg (26-34); Mean Corpuscular Volume 90 fL (80-100); Monocytes Percent Auto 7.3 % (0.0-11.0); Neutrophils Percent Auto 55.5 % (42.0-72.0); Platelet Count* 163 K/uL (140-440); RDW Coefficient of Variation % 18.7 % (11.5-15.5); Red Blood Count 2.74 m/uL (4.00-5.20)
[2022-07-26] MEDS: HEPARIN 500 UNIT/5 ML SYRINGE IVF (10:23)
[2022-07-26] MEDS: SODIUM CHLORIDE 0.9 % (FLUSH) 10 ML SYRINGE IVF (10:23)
[2022-07-26 10:27] LABS: Albumin* 3.7 g/dL (3.3-5.0); Chloride* 104 mmol/L (96-114)
[2022-07-26 10:28] LABS: Potassium* 3.2 mmol/L (3.6-5.1); Sodium* 140 mmol/L (135-149)
[2022-07-26 10:30] LABS: Alkaline Phosphatase* 98 U/L (40-150); Aspartate Amino Transferase* 34 U/L (12-35); Bilirubin Total* 0.2 mg/dL (0.1-1.5); Blood Urea Nitrogen* 15 mg/dL (7-30); Carbon Dioxide* 31 mmol/L (20-32); Creatinine* 0.6 mg/dL (0.5-1.5); Est. Creatinine Clearance* 99.39; Estimated Glomerular Filt Rate 104 ml/min; Total Protein* 6.1 g/dL (6.0-8.3)
[2022-07-26 10:31] LABS: Alanine Aminotransferase* 24 U/L (4-35); Calcium* 8.1 mg/dL (8.4-10.6); Glucose* 113 mg/dL (60-115)
[2022-07-26 10:44] LABS: Slide Review Reflex Yes; White Blood Count* 28.31 K/uL (4.50-11.00)
[2022-07-26 10:45] LABS: Slide Review Acceptable Review (Acceptable)
--- NOTE | 2022-07-26 14:18 | ONC.NURNOTE ---
Noted hg reviewed with Tootie Mccurdy APRN and called to Belkis Belkis reports walking 5 miles/day \denies palpitations or SOB when asked she does report some constipation and has noticed some bright red blood with stool approx every other day instructed to stay well hydrated and to be careful with activity come to ER if starts to feel symptomatic or notes increase in blood with BM's
[2022-07-28 11:47] LABS: Cortisol, Serum 11.2 ug/dL
[2022-07-29] MEDS: PALONOSETRON 0.25 MG/5 ML inj IV (10:29)
[2022-07-29] MEDS: dexAMETHasone 10 MG in 0.9 % SODIUM CHLORIDE 100 ml 100 ML 420 MG IVPB (10:29)
[2022-07-29] MEDS: FOSAPREPITANT 150 MG inj 150 MG in 0.9 % SODIUM CHLORIDE 250 ml 250 ML 780 MG IVPB (10:49)
[2022-07-29] MEDS: SODIUM CHLORIDE 0.9 % (FLUSH) 10 ML SYRINGE IVF (13:30)
[2022-07-29] MEDS: HEPARIN 500 UNIT/5 ML SYRINGE IVF (13:30)
[2022-07-30 08:46] VITALS: BP 154/69; PULSE 71; RESP 16; TEMP 36.6; O2SAT 98
[2022-07-30] MEDS: SODIUM CHLORIDE 0.9 % (FLUSH) 10 ML SYRINGE IVF (10:37)
[2022-07-30] MEDS: HEPARIN 500 UNIT/5 ML SYRINGE IVF (10:37)
[2022-07-30 16:23] LABS: Free T3 2.3 pg/mL (2.5-4.3)
[2022-07-31 08:15] VITALS: BP 122/70; PULSE 70; RESP 16; TEMP 36.7; O2SAT 96
--- NOTE | 2022-08-01 15:05 | ONC.NURNOTE ---
Dr. Driver reviewed T4 and T3 results that were drawn on 07/29/22.
[2022-08-02 08:25] LABS: Basophils Absolute Auto 0.05 K/uL (0.00-0.30); Basophils Percent Auto 0.8 % (0.0-3.0); Eosinophils Absolute Auto 0.02 K/uL (0.00-0.50); Eosinophils Percent Auto 0.3 % (0.0-7.0); Hematocrit 26.5 % (33.0-51.0); Hemoglobin* 8.6 gm/dL (12.0-16.0); Immature Granulocytes Abs Auto 0.02 K/uL (0.00-0.30); Immature Granulocytes Pct Auto 0.3 %; Mean Corpuscular HGB Conc 33 gm/dL (32-36); Mean Corpuscular Hemoglobin 29 pg (26-34); Mean Corpuscular Volume 90 fL (80-100); Monocytes Percent Auto 0.8 % (0.0-11.0); Neutrophils Percent Auto 88.8 % (42.0-72.0); Platelet Count* 590 K/uL (140-440); RDW Coefficient of Variation % 20.1 % (11.5-15.5); Red Blood Count 2.93 m/uL (4.00-5.20); White Blood Count* 6.46 K/uL (4.50-11.00)
[2022-08-02 08:29] LABS: Slide Review Reflex No
[2022-08-02 08:30] VITALS: BP 124/70; PULSE 66; RESP 18; TEMP 36.2; O2SAT 99
[2022-08-02 08:37] LABS: Chloride* 104 mmol/L (96-114); Potassium* 4.4 mmol/L (3.6-5.1); Sodium* 136 mmol/L (135-149)
[2022-08-02 08:40] LABS: Blood Urea Nitrogen* 12 mg/dL (7-30); Carbon Dioxide* 26 mmol/L (20-32); Creatinine* 0.5 mg/dL (0.5-1.5); Est. Creatinine Clearance* 114.81; Estimated Glomerular Filt Rate 109 ml/min
[2022-08-02 08:41] LABS: Calcium* 9.1 mg/dL (8.4-10.6); Glucose* 89 mg/dL (60-115); Magnesium* 1.9 mg/dL (1.5-2.6)
[2022-08-02] MEDS: PEGFILGRASTIM 6 MG/0.6 ML SYRINGE SUBCUT (09:26)
[2022-08-02] MEDS: SODIUM CHLORIDE 0.9 % (FLUSH) 10 ML SYRINGE IVF (09:27)
[2022-08-02] MEDS: HEPARIN 500 UNIT/5 ML SYRINGE IVF (09:27)
--- NOTE | 2022-08-15 08:28 | PC.NURSE ---
Pt called with concerns of having bilateral ear pressure, feels her hearing is worse. The ear pressure is uncomfortable and makes her not feel well. Also, c/o head fogginess. Child Adolescent Psychiatrist will update Tootie Toribio APRN. Did recommend pt be seen by a primary care provider to be evaluated. Pt will keep [facility] updated and verbalized understanding of plan of care.
[2022-08-19 10:21] LABS: Basophils Percent Auto 0.3 % (0.0-3.0); Hematocrit 27.3 % (33.0-51.0); Hemoglobin* 8.7 gm/dL (12.0-16.0); Immature Granulocytes Pct Auto 6.5 %; Lymphocytes Percent Auto 7.9 % (20-44); Mean Corpuscular HGB Conc 32 gm/dL (32-36); Mean Corpuscular Hemoglobin 30 pg (26-34); Mean Corpuscular Volume 95 fL (80-100); Monocytes Percent Auto 5.6 % (0.0-11.0); Neutrophils Percent Auto 79.7 % (42.0-72.0); Platelet Count* 348 K/uL (140-440); Red Blood Count 2.88 m/uL (4.00-5.20); White Blood Count* 23.36 K/uL (4.50-11.00)
[2022-08-19 10:37] LABS: Albumin* 4.6 g/dL (3.3-5.0); Chloride* 104 mmol/L (96-114)
[2022-08-19 10:38] LABS: Potassium* 3.8 mmol/L (3.6-5.1); Sodium* 135 mmol/L (135-149)
[2022-08-19 10:40] LABS: Bilirubin Total* 0.3 mg/dL (0.1-1.5); Carbon Dioxide* 24 mmol/L (20-32); Creatinine* 0.6 mg/dL (0.5-1.5); Est. Creatinine Clearance* 95.68; Estimated Glomerular Filt Rate 104 ml/min; Total Protein* 7.2 g/dL (6.0-8.3)
[2022-08-19 10:41] LABS: Alanine Aminotransferase* 15 U/L (4-35); Alkaline Phosphatase* 86 U/L (40-150); Aspartate Amino Transferase* 22 U/L (12-35); Blood Urea Nitrogen* 20 mg/dL (7-30); Calcium* 9.1 mg/dL (8.4-10.6); Glucose* 89 mg/dL (60-115)
[2022-08-19 10:51] LABS: Slide Review Reflex Yes
[2022-08-19 10:53] LABS: Slide Review Acceptable Review (Acceptable)
[2022-08-21 08:37] VITALS: BP 120/71; PULSE 67; RESP 16; TEMP 36.3; O2SAT 93
[2022-08-21] MEDS: PALONOSETRON 0.25 MG/5 ML inj IV (10:01)
[2022-08-21] MEDS: dexAMETHasone 10 MG in 0.9 % SODIUM CHLORIDE 100 ml 100 ML 420 MG IVPB (10:01)
[2022-08-21] MEDS: FOSAPREPITANT 150 MG inj 150 MG in 0.9 % SODIUM CHLORIDE 250 ml 250 ML 780 MG IVPB (10:21)
[2022-08-22 08:03] VITALS: BP 132/62; PULSE 64; RESP 16; TEMP 36.1; O2SAT 98
[2022-08-22 13:50] LABS: Free T3 2.4 pg/mL (2.5-4.3)
[2022-08-22 14:07] LABS: Cortisol, Serum 9.2 ug/dL
[2022-08-23 07:54] VITALS: BP 107/59; PULSE 72; RESP 16; TEMP 35.7; O2SAT 99
--- NOTE | 2022-09-02 08:43 | ONC.NURNOTE ---
Belkis called today stating she was very tired after walking this weekend. note the weather quality was very poor. enc her to stay in the air condition if quality of air is poor. also enc her to continue walking and pacing herself. states occ rib pain with deep breathing. Belkis also mentioned that her ear feels more crackle/popping sound,states tough time hearing. refered her to her primary. whom has seen her in the past for ear fluid build up. enc her to call if symptoms worsen or questions. Belkis has apt with Oncologist 09/05. will have labs drawn at that time. She has a Hgb normally in the 8.
[2022-09-05 15:22] LABS: Basophils Absolute Auto 0.03 K/uL (0.00-0.30); Basophils Percent Auto 0.4 % (0.0-3.0); Eosinophils Absolute Auto 0.08 K/uL (0.00-0.50); Hematocrit 23.4 % (33.0-51.0); Immature Granulocytes Abs Auto 0.07 K/uL (0.00-0.30); Immature Granulocytes Pct Auto 0.9 %; Lymphocytes Percent Auto 15.4 % (20-44); Mean Corpuscular HGB Conc 33 gm/dL (32-36); Mean Corpuscular Hemoglobin 32 pg (26-34); Mean Corpuscular Volume 100 fL (80-100); Monocytes Percent Auto 6.2 % (0.0-11.0); Neutrophils Percent Auto 76.1 % (42.0-72.0); Platelet Count* 51 K/uL (140-440); Red Blood Count 2.35 m/uL (4.00-5.20); White Blood Count* 7.86 K/uL (4.50-11.00)
[2022-09-05 15:29] LABS: Hemoglobin* 7.6 gm/dL (12.0-16.0); Slide Review Reflex No
[2022-09-05 15:43] LABS: Albumin* 4.5 g/dL (3.3-5.0)
[2022-09-05 15:44] LABS: Chloride* 104 mmol/L (96-114); Sodium* 140 mmol/L (135-149)
[2022-09-05 15:46] LABS: Bilirubin Total* 0.1 mg/dL (0.1-1.5); Creatinine* 0.6 mg/dL (0.5-1.5); Est. Creatinine Clearance* 95.68; Estimated Glomerular Filt Rate 104 ml/min
[2022-09-05 15:47] LABS: Alanine Aminotransferase* 15 U/L (4-35); Alkaline Phosphatase* 66 U/L (40-150); Aspartate Amino Transferase* 19 U/L (12-35); Blood Urea Nitrogen* 13 mg/dL (7-30); Calcium* 8.9 mg/dL (8.4-10.6); Carbon Dioxide* 26 mmol/L (20-32); Glucose* 108 mg/dL (60-115); Total Protein* 6.9 g/dL (6.0-8.3)
[2022-09-05 15:49] LABS: Potassium* 2.9 mmol/L (3.6-5.1)
[2022-09-05] MEDS: POTASSIUM CHLORIDE 10 MEQ CAPSULE ER 60 MEQ PO (16:17)
[2022-09-05 16:25] LABS: Magnesium* 1.9 mg/dL (1.5-2.6)
[2022-09-06 08:30] VITALS: BP 137/57; PULSE 57; RESP 18; TEMP 36.2; O2SAT 99
[2022-09-06] MEDS: 0.9 % SODIUM CHLORIDE 250 ml IV (08:53)
[2022-09-06] MEDS: POTASSIUM CHLORIDE 10 MEQ/100 ML PIGGYBACK 100 MEQ IVPB ×4 (08:53→12:12)
[2022-09-06] MEDS: HEPARIN 500 UNIT/5 ML SYRINGE IVF (08:54)
[2022-09-06] MEDS: SODIUM CHLORIDE 0.9 % (FLUSH) 10 ML SYRINGE IVF (08:54)
[2022-09-06 10:08] VITALS: BP 108/67; PULSE 58; RESP 18; TEMP 36.5; O2SAT 100
[2022-09-06 10:23] VITALS: BP 119/55; PULSE 59; RESP 16; TEMP 36.6; O2SAT 99
[2022-09-06 11:19] VITALS: BP 104/68; PULSE 57; RESP 16; TEMP 36.9; O2SAT 98
[2022-09-06 12:14] VITALS: BP 119/72; PULSE 56; RESP 16; TEMP 36.6
[2022-09-06 12:50] VITALS: BP 113/69; PULSE 59; RESP 16; TEMP 36.4; O2SAT 97
[2022-09-11 08:13] VITALS: BP 130/76; PULSE 60; RESP 16; TEMP 36.7; O2SAT 96
[2022-09-11 08:15] LABS: Basophils Absolute Auto 0.03 K/uL (0.00-0.30); Basophils Percent Auto 0.4 % (0.0-3.0); Eosinophils Absolute Auto 0.07 K/uL (0.00-0.50); Hematocrit 31.7 % (33.0-51.0); Hemoglobin* 10.4 gm/dL (12.0-16.0); Immature Granulocytes Abs Auto 0.05 K/uL (0.00-0.30); Immature Granulocytes Pct Auto 0.7 %; Lymphocytes Percent Auto 16.5 % (20-44); Mean Corpuscular HGB Conc 33 gm/dL (32-36); Mean Corpuscular Hemoglobin 33 pg (26-34); Mean Corpuscular Volume 100 fL (80-100); Monocytes Percent Auto 8.5 % (0.0-11.0); Neutrophils Percent Auto 72.9 % (42.0-72.0); Platelet Count* 305 K/uL (140-440); RDW Coefficient of Variation % 18.9 % (11.5-15.5); Red Blood Count 3.18 m/uL (4.00-5.20); White Blood Count* 7.07 K/uL (4.50-11.00)
[2022-09-11 08:19] LABS: Slide Review Reflex No
[2022-09-11 08:45] LABS: Albumin* 4.7 g/dL (3.3-5.0)
[2022-09-11 08:46] LABS: Chloride* 103 mmol/L (96-114); Potassium* 3.9 mmol/L (3.6-5.1); Sodium* 139 mmol/L (135-149)
[2022-09-11 08:48] LABS: Alkaline Phosphatase* 61 U/L (40-150); Aspartate Amino Transferase* 20 U/L (12-35); Bilirubin Total* 0.2 mg/dL (0.1-1.5); Blood Urea Nitrogen* 13 mg/dL (7-30); Carbon Dioxide* 25 mmol/L (20-32); Creatinine* 0.7 mg/dL (0.5-1.5); Est. Creatinine Clearance* 82.01; Estimated Glomerular Filt Rate 100 ml/min; Total Protein* 7.3 g/dL (6.0-8.3)
[2022-09-11 08:49] LABS: Alanine Aminotransferase* 16 U/L (4-35); Calcium* 9.3 mg/dL (8.4-10.6); Glucose* 89 mg/dL (60-115)
[2022-09-11] MEDS: dexAMETHasone 10 MG in 0.9 % SODIUM CHLORIDE 100 ml 100 ML 404 MG IVPB (10:50)
[2022-09-11] MEDS: FOSAPREPITANT 150 MG inj 150 MG in 0.9 % SODIUM CHLORIDE 250 ml 250 ML 510 MG IVPB (11:14)
[2022-09-11] MEDS: PALONOSETRON 0.25 MG/5 ML inj IV (11:48)
[2022-09-11] MEDS: OLANZapine 5 MG TAB.RAPDIS PO (12:51)
[2022-09-11] MEDS: HEPARIN 500 UNIT/5 ML SYRINGE IVF (13:06)
[2022-09-11] MEDS: SODIUM CHLORIDE 0.9 % (FLUSH) 10 ML SYRINGE IVF (13:06)
[2022-09-12] MEDS: 0.9 % SODIUM CHLORIDE 250 ml IV (10:30)
[2022-09-12 10:44] VITALS: BP 105/48; PULSE 58; RESP 16; TEMP 36.3; O2SAT 100
[2022-09-12] MEDS: SODIUM CHLORIDE 0.9 % (FLUSH) 10 ML SYRINGE IVF (12:31)
[2022-09-12] MEDS: HEPARIN 500 UNIT/5 ML SYRINGE IVF (12:42)
[2022-09-12 20:16] LABS: Cortisol, Serum 10.2 ug/dL
[2022-09-13 08:07] VITALS: BP 112/66; PULSE 50; RESP 16; TEMP 36.2; O2SAT 99
--- NOTE | 2022-09-13 10:12 | ONC.NURNOTE ---
Belkis expressed her concern and frustration with her hearing loss. She is unable to get in to see Dr. Cox until . She is asking if her CT of her head could be done sooner than . She is concerned that maybe something is there blocking her hearing. Note left for Dr. Driver to address fridaySeptember 16.
[2022-09-13] MEDS: 0.9 % SODIUM CHLORIDE 250 ml IV (10:32)
[2022-09-13] MEDS: SODIUM CHLORIDE 0.9 % (FLUSH) 10 ML SYRINGE IVF (10:32)
[2022-09-13] MEDS: HEPARIN 500 UNIT/5 ML SYRINGE IVF (10:33)
--- NOTE | 2022-09-19 13:17 | ONC.NURNOTE ---
Late entry: Received call from [facility] on 09/18/22 stating pt's insurance declined PET scheduled for 09/19/22. [employer] informed Tootie Toribio APRN of this, she called [facility] to see if peer to peer needed. Tootie also contacted Dr. Driver and decision was made to have pt have a CT done instead. Order received for CT and scheduled. Pt aware.
[2022-09-30] MEDS: SODIUM CHLORIDE 0.9 % (FLUSH) 10 ML SYRINGE IVF (11:04)
[2022-09-30] MEDS: HEPARIN 500 UNIT/5 ML SYRINGE IVF (11:04)
[2022-10-01 13:18] LABS: Basophils Percent Auto 0.3 % (0.0-3.0); Eosinophils Percent Auto 0.7 % (0.0-7.0); Hematocrit 27.7 % (33.0-51.0); Hemoglobin* 8.9 gm/dL (12.0-16.0); Immature Granulocytes Pct Auto 3.6 %; Lymphocytes Percent Auto 14.2 % (20-44); Mean Corpuscular HGB Conc 32 gm/dL (32-36); Mean Corpuscular Hemoglobin 33 pg (26-34); Mean Corpuscular Volume 102 fL (80-100); Monocytes Percent Auto 7.7 % (0.0-11.0); Neutrophils Percent Auto 73.5 % (42.0-72.0); Platelet Count* 69 K/uL (140-440); RDW Coefficient of Variation % 17.6 % (11.5-15.5); Red Blood Count 2.72 m/uL (4.00-5.20); White Blood Count* 12.28 K/uL (4.50-11.00)
[2022-10-01 13:21] LABS: Slide Review Reflex No
[2022-10-01 13:30] LABS: Albumin* 4.6 g/dL (3.3-5.0); Chloride* 104 mmol/L (96-114)
[2022-10-01 13:31] LABS: Potassium* 4.2 mmol/L (3.6-5.1); Sodium* 138 mmol/L (135-149)
[2022-10-01 13:33] LABS: Alanine Aminotransferase* 19 U/L (4-35); Alkaline Phosphatase* 76 U/L (40-150); Aspartate Amino Transferase* 20 U/L (12-35); Bilirubin Total* 0.2 mg/dL (0.1-1.5); Blood Urea Nitrogen* 23 mg/dL (7-30); Carbon Dioxide* 24 mmol/L (20-32); Creatinine* 0.6 mg/dL (0.5-1.5); Est. Creatinine Clearance* 95.68; Estimated Glomerular Filt Rate 104 ml/min; Total Protein* 6.9 g/dL (6.0-8.3)
[2022-10-01 13:34] LABS: Calcium* 8.8 mg/dL (8.4-10.6); Glucose* 92 mg/dL (60-115)
[2022-10-02] MEDS: HEPARIN 500 UNIT/5 ML SYRINGE IVF (13:05)
[2022-10-02] MEDS: SODIUM CHLORIDE 0.9 % (FLUSH) 10 ML SYRINGE IVF (13:06)
[2022-10-03 05:55] LABS: Cortisol, Serum 4.6 ug/dL
[2022-10-04 00:12] LABS: Total T3 118 ng/dL (80-200)
--- NOTE | 2022-10-11 13:51 | PC.NURSE ---
Pt present at [facility] today for help with her [place] paperwork. RN sat by Belkis's side and completed an online form and paperwork for her employer. Support offered. [facility] RN's also spoke with Tootie Mccurdy APRN regarding Belkis's labs. TSH was elevated and MD requested additional labs only half of which were done. Belkis will come to [facility] on 10/16/2022 for these additional thyroid work up labs along with pre-treatment labs in anticipation for treatment on 10/23/2022. Belkis and her , Serge, verbalize understanding.
[2022-10-16 10:00] VITALS: BP 145/67; PULSE 60; RESP 16; TEMP 36.1; O2SAT 99
[2022-10-16 10:36] LABS: Basophils Absolute Auto 0.02 K/uL (0.00-0.30); Basophils Percent Auto 0.3 % (0.0-3.0); Eosinophils Absolute Auto 0.11 K/uL (0.00-0.50); Eosinophils Percent Auto 1.5 % (0.0-7.0); Hemoglobin* 10.2 gm/dL (12.0-16.0); Immature Granulocytes Abs Auto 0.02 K/uL (0.00-0.30); Immature Granulocytes Pct Auto 0.3 %; Lymphocytes Percent Auto 12.7 % (20-44); Mean Corpuscular HGB Conc 32 gm/dL (32-36); Mean Corpuscular Hemoglobin 34 pg (26-34); Mean Corpuscular Volume 106 fL (80-100); Monocytes Percent Auto 7.8 % (0.0-11.0); Neutrophils Percent Auto 77.4 % (42.0-72.0); Platelet Count* 285 K/uL (140-440); RDW Coefficient of Variation % 16.2 % (11.5-15.5); Red Blood Count 3.03 m/uL (4.00-5.20); White Blood Count* 7.47 K/uL (4.50-11.00)
[2022-10-16 10:40] LABS: Slide Review Reflex No
[2022-10-16 10:58] LABS: Albumin* 4.5 g/dL (3.3-5.0)
[2022-10-16 10:59] LABS: Chloride* 105 mmol/L (96-114); Sodium* 139 mmol/L (135-149)
[2022-10-16 11:01] LABS: Anion Gap 8 mEq/L (7-15); Aspartate Amino Transferase* 22 U/L (12-35); Bilirubin Total* 0.2 mg/dL (0.1-1.5); Carbon Dioxide* 26 mmol/L (20-32); Creatinine* 0.6 mg/dL (0.5-1.5); Est. Creatinine Clearance* 95.68; Estimated Glomerular Filt Rate 104 ml/min
[2022-10-16 11:02] LABS: Alanine Aminotransferase* 17 U/L (4-35); Alkaline Phosphatase* 69 U/L (40-150); Blood Urea Nitrogen* 22 mg/dL (7-30); Calcium* 8.9 mg/dL (8.4-10.6); Glucose* 95 mg/dL (60-115)
[2022-10-16 11:28] LABS: Free T4 Free Thyroxine* 1.27 ng/dL (0.70-1.85)
[2022-10-16] MEDS: HEPARIN 500 UNIT/5 ML SYRINGE IVF (12:12)
[2022-10-16] MEDS: SODIUM CHLORIDE 0.9 % (FLUSH) 10 ML SYRINGE IVF (12:12)
--- NOTE | 2022-10-16 13:55 | ONC.NURNOTE ---
seeing Dr. Cox tomorrow re hearing loss.
[2022-10-18 02:24] LABS: Free T3 2.9 pg/mL (2.5-4.3)
[2022-10-18 03:04] LABS: Cortisol, Serum 11.1 ug/dL
[2022-10-23 08:08] VITALS: BP 155/75; PULSE 66; RESP 16; TEMP 36.9; O2SAT 98
[2022-10-23] MEDS: HEPARIN 500 UNIT/5 ML SYRINGE IVF (09:53)
[2022-10-23] MEDS: 0.9 % SODIUM CHLORIDE 250 ml IV (09:53)
[2022-10-23] MEDS: SODIUM CHLORIDE 0.9 % (FLUSH) 10 ML SYRINGE IVF (09:53)
--- NOTE | 2022-10-23 11:22 | ONC.NURNOTE ---
Belkis arrived angry and tearful. Stating shes frustrated with the bouchra. eye discomfort and puffyness below eyes. states wakens with crusty eyes. eyes both look watery and clear drainage is scant. Pt has a eye apt in [place] tomorrow. Tootie Cleveland APRN saw pt and per pts request treatment was given today. Pt also states her hearing is 15 percent better . but the head noise is coming back. She states seeing Dr. Isbell at ent of month. is using ear drops BID. not perscribed TID due to discomfort .
[2022-11-06 10:52] LABS: Basophils Absolute Auto 0.03 K/uL (0.00-0.30); Basophils Percent Auto 0.4 % (0.0-3.0); Eosinophils Absolute Auto 0.28 K/uL (0.00-0.50); Eosinophils Percent Auto 3.4 % (0.0-7.0); Hemoglobin* 12.2 gm/dL (12.0-16.0); Immature Granulocytes Abs Auto 0.01 K/uL (0.00-0.30); Immature Granulocytes Pct Auto 0.1 %; Lymphocytes Percent Auto 16.6 % (20-44); Mean Corpuscular HGB Conc 33 gm/dL (32-36); Mean Corpuscular Hemoglobin 33 pg (26-34); Mean Corpuscular Volume 100 fL (80-100); Monocytes Percent Auto 6.3 % (0.0-11.0); Neutrophils Percent Auto 73.2 % (42.0-72.0); Platelet Count* 250 K/uL (140-440); RDW Coefficient of Variation % 12.7 % (11.5-15.5); White Blood Count* 8.24 K/uL (4.50-11.00)
[2022-11-06 11:02] LABS: Slide Review Reflex No
[2022-11-06 11:22] LABS: Albumin* 4.5 g/dL (3.3-5.0)
[2022-11-06 11:23] LABS: Chloride* 104 mmol/L (96-114); Sodium* 140 mmol/L (135-149)
[2022-11-06 11:25] LABS: Anion Gap 9 mEq/L (7-15); Aspartate Amino Transferase* 34 U/L (12-35); Bilirubin Total* 0.2 mg/dL (0.1-1.5); Carbon Dioxide* 27 mmol/L (20-32); Creatinine* 0.7 mg/dL (0.5-1.5); Est. Creatinine Clearance* 81.01; Estimated Glomerular Filt Rate 100 ml/min
[2022-11-06 11:26] LABS: Alanine Aminotransferase* 28 U/L (4-35); Alkaline Phosphatase* 81 U/L (40-150); Blood Urea Nitrogen* 25 mg/dL (7-30); Calcium* 9.6 mg/dL (8.4-10.6); Glucose* 113 mg/dL (60-115); Total Protein* 7.3 g/dL (6.0-8.3)
--- NOTE | 2022-11-06 11:34 | ONC.NURNOTE ---
Addendum entered by Tanya Reo RN 11/06/22 16:35: LMOM for pt reviewing that CBC and CMP are WNL. T3 and Cortisol still pending. Pt to call [facility] following appt with Dr. Trimble tomorrow at 1115. Original Note: Pt called noting she has her last day of Amoxicillin tomorrow and is continuing to have very runny nose and cough. She saw Dr. Tribmle last week. Pt concerned about low Hgb as she feels so tired and run down like previously when she needed a transfusion. Reviewed with Tootie Cleveland APRN. Plan for pt to do next week's chemo labs today; scheduled pt to see Dr. Trimble tomorrow at 11:15 in [place] to reassess respiratory symptoms. Pt's port gave scant blood return; unable to draw port labs. Labs drawn peripherally. Will reassess on return to clinic for treatment next week and reviewed with pt she may need CathFlo at that time. Pt agreeable to this plan.
[2022-11-06 12:03] LABS: Free T4 Free Thyroxine* 1.77 ng/dL (0.70-1.85)
[2022-11-06 12:16] LABS: Thyroid Stimulating Hormone* 0.817 uIU/mL (0.270-4.20)
--- NOTE | 2022-11-07 13:26 | URNOTE ---
REceived request for Tencentriq (Atezolizumab) (J9022). This has been approved by [facility], 1200mg every 21 days for 18 visits. 11/13/2022-11/13/2023. Order ID [id number]
--- NOTE | 2022-11-07 13:59 | ONC.NURNOTE ---
Belkis called stating she saw Dr. Trimble and prescribed Zyrtec daily and Pema NICOLASI bid prn for poss sinus, allergies. She was also prescribed Flonase daily. Left a message on Oziel phone that her normal labs done 11/06 are good for her infusion next week.
[2022-11-08 02:13] LABS: Free T3 3.2 pg/mL (2.5-4.3)
[2022-11-08 02:33] LABS: Cortisol, Serum 10.6 ug/dL
[2022-11-13] MEDS: SODIUM CHLORIDE 0.9 % (FLUSH) 10 ML SYRINGE IVF (15:39)
[2022-11-13] MEDS: HEPARIN 500 UNIT/5 ML SYRINGE IVF (15:39)
[2022-11-13] MEDS: 0.9 % SODIUM CHLORIDE 250 ml IV (15:39)
[2022-12-03 10:36] LABS: Basophils Absolute Auto 0.01 K/uL (0.00-0.30); Basophils Percent Auto 0.1 % (0.0-3.0); Eosinophils Absolute Auto 0.06 K/uL (0.00-0.50); Eosinophils Percent Auto 0.8 % (0.0-7.0); Hematocrit 35.1 % (33.0-51.0); Hemoglobin* 11.4 gm/dL (12.0-16.0); Immature Granulocytes Abs Auto 0.01 K/uL (0.00-0.30); Immature Granulocytes Pct Auto 0.1 %; Lymphocytes Percent Auto 7.1 % (20-44); Mean Corpuscular HGB Conc 33 gm/dL (32-36); Mean Corpuscular Hemoglobin 32 pg (26-34); Mean Corpuscular Volume 97 fL (80-100); Monocytes Percent Auto 6.2 % (0.0-11.0); Neutrophils Percent Auto 85.7 % (42.0-72.0); Platelet Count* 196 K/uL (140-440); Red Blood Count 3.61 m/uL (4.00-5.20)
--- NOTE | 2022-12-03 10:36 | PC.NURSE ---
Addendum entered by Alanis Acosta RN 12/03/22 11:03: Discussed pt's port symptoms with [facility] RN's, Marci & Carmen after pt left our dept. It was recommended that the port be evaluated by surgery. RN called Rand Hull RN who reported there are no availabilities until tomorrow at 10:30 AM in [place]. This is not possible given pt's schedule at [facility] tomorrow. Will have Tootie Mccurdy APRN evaluate the port site tomorrow and call on surgery at that time if necessary. This teletypewriter installer then called Belkis with this update. Belkis states that the port has been tender for about a month. She noticed it at her last infusion 21 days ago and she states she mentioned it. She will monitor for s/s of infection and go to ER if she decompensates. Pt also shares that she had her shingles shot yesterday so she is feeling tired and having fevers from that. Original Note: Pt present to [facility] for labs today. Port left accessed for treatment tomorrow. RN noted reddened, puffy, tender area just above the RIGHT/lateral upper edge of the port; near the lateral edge of the incision. Will assess again tomorrow when port de-accessed.
[2022-12-03 10:37] LABS: Slide Review Reflex No
[2022-12-03 11:06] LABS: Albumin* 4.1 g/dL (3.3-5.0); Chloride* 102 mmol/L (96-114); Potassium* 3.4 mmol/L (3.6-5.1); Sodium* 136 mmol/L (135-149)
[2022-12-03 11:09] LABS: Alanine Aminotransferase* 19 U/L (4-35); Alkaline Phosphatase* 63 U/L (40-150); Anion Gap 10 mEq/L (7-15); Aspartate Amino Transferase* 31 U/L (12-35); Bilirubin Total* 0.3 mg/dL (0.1-1.5); Blood Urea Nitrogen* 12 mg/dL (7-30); Carbon Dioxide* 24 mmol/L (20-32); Creatinine* 0.6 mg/dL (0.5-1.5); Est. Creatinine Clearance* 94.51; Estimated Glomerular Filt Rate 103 ml/min; Glucose* 124 mg/dL (60-115); Total Protein* 6.9 g/dL (6.0-8.3)
[2022-12-03 11:10] LABS: Calcium* 8.8 mg/dL (8.4-10.6)
[2022-12-03 11:41] LABS: Thyroid Stimulating Hormone* 0.372 uIU/mL (0.270-4.20)
[2022-12-04 09:03] VITALS: BP 115/73; PULSE 67; RESP 16; TEMP 36.2; O2SAT 97
[2022-12-04] MEDS: 0.9 % SODIUM CHLORIDE 250 ml IV (09:38)
[2022-12-04] MEDS: HEPARIN 500 UNIT/5 ML SYRINGE IVF (10:16)
[2022-12-04] MEDS: SODIUM CHLORIDE 0.9 % (FLUSH) 10 ML SYRINGE IVF (10:16)
[2022-12-04 21:22] LABS: Cortisol, Serum 18.9 ug/dL
--- NOTE | 2022-12-05 10:27 | ONC.NURNOTE ---
Port site assessment from yesterday follow up dime size area raised with a slight amount of redness noted on the right upper side of old healed incision reports this sight as nontender, yet tenderness for port access assessed by Tootie Mccurdy APRN detailed discussion with and patient about signs of infection and any noted changes with increase in redness or swelling needs to be reported immediately to surgeon, [facility] or go to ER patient/ state understanding excellent blood return from port
== END 2022-12-17 23:59 | disposition home or self-care (01) ==
LOC: CCIC 09:00
PROVIDERS: Clinical Nurse Specialist; PCP Family Medicine; Referring Provider Family Medicine; Visit Provider Internal Medicine Hematology & Oncology
DX: C34.91 Malignant neoplasm of unspecified part of right bronchus or lung (principal)
CPT/HCPCS: 36415; 36430; 36591; 80048; 80053; 82533; 83735; 84436; 84439; 84443; 84480; 84481; 85025; 86850; 86900; 86901; 86922; 96365; 96366; 96372; 96376; 96377; 96413; 96415; 96417; 99202; 99205; 99211; 99212; 99213; 99214; 99215; J2506; A9270; J1100; J1453; J1642; J2469; J3480; J7050; J9022; J9045; J9181; P9016

== ENCOUNTER 2023-01-07 07:31 | Outpatient (CLI) | payer BC, SELFPAY ==
--- NOTE | 2023-01-07 08:00 | CRLHL7_ITS ---
For Patients: As a result of the Century Cures Act, medical imaging exams and procedure reports are released immediately into your electronic medical record. You may view this report before your referring provider. If you have questions, please contact your health care provider. Indication: SMALL CELL LUNG CANCER, FOLLOW UP Technique: CT Chest/Abd/Pelvis 75CC ISOVUE 370 AND WATER PREP Please note that all CT scans at this facility use dose modulation, iterative reconstruction, and/or weight-based dosing when appropriate to reduce radiation dose to as low as reasonably achievable. Comparison: 09/30/2022 CT, 06/13/2022 CT-PET Findings: In the chest, increased size of subcarinal lymph node now measuring 2.8 x 3.5 cm compared to 1.6 x 3.3 cm. Increased size of right paratracheal lymph node now measuring up to 3.1 cm, previously measuring 1.2 cm. Decreased size of soft tissue nodular density adjacent to the right lower lobe bronchovascular bundle, now measuring 1.1 cm compared to 1.8 cm on the prior exam. Similar linear densities within the right lower lobe. Left lung clear. No acute infiltrate or CHF. No pleural effusion or pneumothorax. Stable bleb within the left lower lobe. There is no fracture. Stable chronic incidental changes at the coracoclavicular relationship left shoulder. In the abdomen, the liver appears similar with a subtle area of decreased attenuation within the inferior liver measuring less than 1 cm. Focal fat deposition is present adjacent to the falciform ligament. The gallbladder is incompletely distended. No biliary dilation. Decreased conspicuity and size of small hypodense structure within the inferior pole of the left kidney. The right kidney is unremarkable. Normal spleen. Normal pancreas. Atherosclerotic changes. Right adrenal nodule measuring 1.7 cm. Left adrenal gland normal. A few scattered subcentimeter retroperitoneal lymph nodes are present. In the pelvis, a few scattered subcentimeter pelvic sidewall lymph nodes are present. There is mild sigmoid diverticulosis. No acute inflammation or bowel obstruction. The bladder is normal. No pelvic soft tissue mass. Grade 1 degenerative spondylolisthesis of L4 on L5. Facet degeneration lower lumbar spine. Vacuum disc phenomenon at L5-S1. Impression: Increased size of lymph nodes in the right paratracheal and subcarinal spaces. Increased size of right adrenal nodule. Decreased size of the nodular density adjacent to the right lower lobe bronchovascular bundle. Numerous subcentimeter retroperitoneal lymph nodes are probably similar. Similar appearance of the liver with small indeterminate area of decreased attenuation within the inferior liver. Decrease conspicuity and size of small hypoechoic structure within the inferior pole of the left kidney. Please note that all CT scans at this facility use dose modulation, iterative reconstruction, and/or weight-based dosing when appropriate to reduce radiation dose to as low as reasonably achievable. Dictated by Andres Nguyen MD @ 01/10/2023 2:24:53 PM (Electronically Signed)
--- NOTE | 2023-01-07 09:15 | CRLHL7_ITS ---
For Patients: As a result of the Century Cures Act, medical imaging exams and procedure reports are released immediately into your electronic medical record. You may view this report before your referring provider. If you have questions, please contact your health care provider. INDICATION: Lung cancer, monitor intracranial metastases. TECHNIQUE : Multisequence multiplanar MRI of the head before and following administration of 20 mL of gadolinium-based intravenous contrast. COMPARISON: MRI brain studies dated June 13, 2022 and September 30, 2022. FINDINGS: No new focus of suspicious nodular or leptomeningeal enhancement. Slight further decrease in size of the residual enhancing lesions in the left postcentral gyrus measuring 1.4 x 0.9 x 1.5 cm (series 13, image 45) and left occipital lobe measuring 7 millimeters (series 13, image 100). Similar minimal residual enhancement in the right cerebellum (Series 13, image 122). Similar scattered T2/FLAIR hyperintensities, some of which correspond to enhancing metastases on pretreatment exam and others which likely reflect small vessel ischemic changes. As before, scattered foci of blooming on susceptibility weighted imaging in keeping with prior hemorrhage associated with metastases. No new focus of susceptibility. No evidence of acute ischemia. The ventricles are normal in size. Flow voids in the larger intracranial arteries are preserved. No suspicious calvarial lesion is identified. The orbits are unremarkable in appearance. There is similar scattered paranasal sinus mucosal thickening and opacification of the bilateral mastoid air cells. IMPRESSION: 1. No new focus of intracranial metastasis. 2. Slight further interval decrease in size of the residual enhancing lesions in the left postcentral gyrus and left occipital lobe. 3. As before, multiple scattered foci of susceptibility artifact in keeping with hemosiderin staining from prior hemorrhage associated with metastases. 4. Redemonstrated diffuse paranasal sinus mucosal thickening and bilateral mastoid effusions. Dictated by Miles Marie MD @ 01/07/2023 12:46:41 PM (Electronically Signed)
== END 2023-01-07 07:32 | disposition home or self-care (01) ==
LOC: CT 07:31
PROVIDERS: PCP Family Medicine; Visit Provider Physician Assistant
DX: C34.90 Malignant neoplasm of unspecified part of unspecified bronchus or lung (principal); C79.31 Secondary malignant neoplasm of brain
CPT/HCPCS: 70553; 71260; 74177; A9575; Q9967

== ENCOUNTER 2023-04-10 07:18 | Outpatient (CLI) | payer BC, SELFPAY ==
--- NOTE | 2023-04-10 08:00 | CT_ITS ---
Patient: OMID RIOS Facility:?[facility] Patient ID:?[id number] Site Patient ID:?[id number]. Site :?[id number] Study:?CT-Chest/Abd/Pelvis W/ 74CC [id number]/22/2024 8:13:34 AM Ordering Physician:Pallavi Remy Final Report: INDICATION: Assess treatment response of metastatic small-cell lung cancer TECHNIQUE: Volumetric helical scanning of the chest, abdomen and pelvis was performed with 100cc of Omnipaque 350 contrast material IV. Coronal and sagittal reconstructions were obtained. COMPARISON: Chest/abdomen/pelvis CT of 01/07/2023 FINDINGS: CHEST: The perihilar right lower lobe mass, today demonstrated on image 51 of series 3, is measured 1.4 x 1.0 cm and on the previous examination appears to have measured 1.4 x 1.1 cm. Unchanged associated atelectasis/scarring in the right lower lobe is noted. No new pulmonary nodule is demonstrated. No acute infiltrate, airway abnormality or pleural effusion is demonstrated. Previously demonstrated mediastinal lymphadenopathy has resolved. No axillary adenopathy is noted. The heart is normal in size. ABDOMEN/PELVIS: The liver is normal in size, shape and attenuation. The bile ducts are within normal limits. No lymphadenopathy is evident. No free fluid is demonstrated. The spleen and pancreas are negative. An 8 mm right adrenal nodule is demonstrated. This was previously measured at 1.7 cm. The left adrenal is normal. The kidneys are unremarkable. The bowel is unremarkable except for sigmoid diverticulosis No lytic or blastic bone lesion is identified. IMPRESSION: 1. Stable right lower lobe perihilar mass measuring 1.4 x 1.0 cm as opposed to 1.4 x 1.1 cm previously. 2. Resolution of previously demonstrated mediastinal lymphadenopathy. 3. Previously demonstrated 1.7 cm right adrenal metastasis now measured at 8 mm. 4. No new metastatic lesion evident. Please note that all CT scans at this facility use dose modulation, iterative reconstruction, and/or weight-based dosing when appropriate to reduce radiation dose to as low as reasonably achievable. Dictated by Wai Solo MD @ 04/11/2023 6:01:56 AM Signed by:?Wai Solo MD @04/11/2023 6:01:56 AM (Electronic Signature)
== END 2023-04-10 07:19 | disposition home or self-care (01) ==
PROVIDERS: PCP Family Medicine; Visit Provider Physician Assistant
DX: C34.90 Malignant neoplasm of unspecified part of unspecified bronchus or lung (principal); C79.31 Secondary malignant neoplasm of brain; R91.8 Other nonspecific abnormal finding of lung field; E27.9 Disorder of adrenal gland, unspecified
CPT/HCPCS: 71260; 74177; Q9967

== ENCOUNTER 2023-04-29 08:57 | Emergency (ER) | payer BC, SELFPAY ==
[2023-04-29] VITALS (28 sets, daily range): BP systolic 109–141; BP diastolic 46–77; PULSE 48–66; RESP 16; TEMP 36.8–37.2; O2SAT 94–99; BMI 22.1
--- NOTE | 2023-04-29 10:07 | ED_ITS ---
HPI - General Adult General Date Seen: 04/29/23 Chief complaint: Neuro Symptoms/Altered Deficit Stated complaint: body tremors-cancer patient Time Seen by Provider: 04/29/23 10:05 History of Present Illness HPI narrative: 57-year-old female with a history of small cell lung cancer and brain metastasis, COPD, anemia from chemo, hypertension, hyperlipidemia, decreased hearing, Graves disease, hypothyroidism. She is currently on chemo (every 3 weeks) palliative for her metastatic lung cancer. She has had episodes of ?spasms? 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 They had been well controlled since she has been on Keppra 500 b.i.d. for the past several months. She had an episode that occurred 2 days ago on Friday when she was in her kitchen where she had a ?spasm? that affected her right leg in her vision and lasted a few seconds and made her fall to the floor. She does not lose consciousness and did not have a generalized seizure. Also since yesterday she has noted a little bit more numbness and clumsiness affecting her right hand. She was trying not to worry her about the symptoms but told him this morning so they decided to come in. She has not had any further spasms of her legs or any other recent seizures of her hand. No other neurologic symptoms. No left-sided symptoms. No headache. No fever. No known head injury. She does not take any blood thinners. Most recent oncology visit was 04/[address] Driver, per notes Belkis is a 56-year-old very pleasant lady with 40 pack-year smoking history who has been recently diagnosed with extensive stage small cell lung cancer with multiple brain metastases. Belkis started experiencing right hand spasms/tremors/pain approximately 3 months ago. ?She underwent physical therapy without any significant improvement. ?Persistence of symptoms prompted an MRI brain on 06/13/2022 which was consistent with > 20 brain metastases that prompted further workup with PET scan and a biopsy which was consistent with malignant metastatic small cell cancer. Small-cell lung cancer 05/27/2022 CT scan chest with contrast consistent with right-sided pleural effusion, bulky subcarinal and right hilar pulmonary mass lesions with encasement of the right lower lobe bronchi measuring 6.7-5.3 cm in greatest axial dimension.? Additional enlarged right paratracheal lymph nodes the most prominent seen on series 2. 06/13/2022 PET scan consistent with Right adrenal hypermetabolic nodule concerning for metastases Additional exophytic masses in bilateral kidneys indeterminate.? Could be additional sites for metastatic disease 06/13/2022 MRI brain consistent with numerous greater than 20 heterogenously enhancing lesions in the cerebral and cerebellar hemispheres compatible with widespread metastatic disease.? Largest lesions demonstrate heterogeneous internal susceptibility likely secondary to blood products.? Several lesions demonstrate diffusion restriction.? Dominant lesion centered within the left post central gyrus measures 3.3-3.0 cm associated with moderately extensive perilesional edema.? Additional notable lesions measuring 2.6 mm to 2.5 mm within the anterior left occipital lobe and 1.4 cm within the anterolateral left frontal lobe associated with mild to moderate parenchymal edema.? Mass effect results in local sulcal effacement as well as 2 mm rightward midline shift. 06/17/2022 lymph node station 7 subcarinal mass endobronchial ultrasound guided FNA positive for malignant for metastatic small-cell carcinoma 06/20/[address] [facility] for consultation and commencement of treatment: She endorses approximately 8 lb weight loss. Denies any nausea vomiting. Denies any chest pain shortness of breath. She has been experiencing low back pain however attributes it to a different reason. She does take steroid shots once every 3 monthly for low back pain. Most recently she has been started on dexamethasone 4 mg twice daily for brain metastases. She reports that her right hand tremor have lasted as long as 10 minutes and sometimes have resolved in 30-60 seconds. 06/20/2022 seen by radiation oncology Dr. Leonardo Garcia 06/21/2022-07/02/2022 received whole-brain XRT, 30 Gy in 10 fractions 06/22/[address] Soham Ariza/neurology at [place] for focal seizures and was started on Keppra 500 mg b.i.d. 07/02/2022 last seen by radiation oncology and placed on taper dexamethasone 2 mg twice daily for 1 week followed by 2 mg daily for 1 week-?plan to pursue Keppra for at least 6 months 07/08/2022 cycle 1 day 1 of carboplatin etoposide--> did not receive atezol izumab due to low TSH levels 07/09/22 cycle 1 day 2 of treatment 07/10/2022 cycle 1 day [address] Andres Trimble adjusted her Synthroid from 100 mcg to 75 mcg. 07/29/2022 received Carboplatinum etoposide and Tecentriq 07/30/2022 and 07/31/2022 etoposide 08/21/2022, 08/22/2022, 08/23/2022 cycle 3. Of Carboplatinum etoposide and Tecentriq 09/11/2022 cycle 4 Carboplatinum etoposide and Tecentriq 09/30/2022 MRI brain - Significant interval decrease in size of the dominant lesion centered on the left post central gyrus, which measures 1.0 x 1.7 cm (series 13, image 176), previously 3.2 x 3.0 cm. - Significant interval decrease in size of the anterior left occipital lobe lesion which measures approximately 1.0 cm (series 13, image 127), previously 2.6 x 2.5 cm. 09/30/2022 CT chest abdomen pelvis Impression Decreased right lower lobe/right posterior perihilar mass and decreased subcarinal conglomerate adenopathy. Marked improved aeration of the right lower lobe with residual areas of atelectasis. Persistent soft tissue thickening along the bronchovascular tree at the right lower lobe. Decreased adenopathy in the mediastinum and resolution of previously noted right pleural effusion. Decreased size/conspicuity of lymph nodes in the portacaval space and left periaortic space. Decreased size of a suspicious mass within the lower pole of the left kidney. Also decreased size of suspicious right adrenal nodule. Subtle 8 millimeter low-density focus within the inferior liver not definitively present on the prior exam and suspicious for metastatic focus. MRI of the liver with and without contrast may be useful for further evaluation. Please note that all CT scans at this facility use dose modulation, iterative reconstruction, and/or weight-based dosing when appropriate to reduce radiation dose to as low as reasonably achievable. 10/02/2022: Reviewed scans and maintenance Tecentriq started 10/23/22 Tecentriq She was able to visit with ENT on 10/29/2022 and was found to have left serous otitis media. She also had right-sided acute otitis media. She was started on antibiotics and drops. She is status post bilateral myringotomies and will be having tube placement tomorrow on 11/14/2022. 11/13/22: Tecentriq 01/07/2023: MRI brain no evidence of metastases. Further interval decrease in size of residual enhancing lesions in the left postcentral gyrus and left occipital lobe. Multiple scattered foci of susceptibility artifact in keeping with hemosiderin staining from prior hemorrhage associated with metastases. 01/07/2023 CT chest abdomen pelvis consistent with increase in the size of subcarinal lymph node now measuring 2.8 in 23.5 cm compared to previously 1.6 into 3.3 cm. Increased size of right paratracheal lymph node now measuring 3.1 cm previously measuring 1.2 cm. Decrease in the size of nodular density in the right lower lobe now measuring 1.1 cm compared to 1.8 cm previously. Increase in the size of the right adrenal nodule, now 1.7 cm. 01/13/2023 discussed lurbinectedin addition to Tecentriq. 01/21/23-02/03/23: # Radiation therapy to subcarinal and paratracheal metastasis initiated on January 21, 2023; anticipated date of completion is on February 03, 2023 #Radiation therapy to tumor in right adrenal initiated on January 21, 2023; anticipated date of completion is on February 03, 2023 02/18/2023 cycle 1 day 1 palliative Lurbinectidin 03/10/23: C#2 Lurbinectidin 03/31/2023 cycle 3 day 1 palliative Lurbinectidin Interval Hx: Belkis is here for routine follow up with her supportive . She was recently in [place] for 4 days and had a good time. She is having hard time consuming food, and is loosing weight. denies any branden N/V/C; does indicate she had loose stool for 2 days in row that spontaneously re solved. Labs: Sodium 137, potassium 3.4, bicarb 22, glucose 101, BUN 19, creatinine 0.6 AST 18, ALT 13, alk-phos 81, bilirubin 0.3, Mag 1.9 WBC 10.6, hemoglobin 12.7, but count 245 Plan Belkis Manjarrez is a 57 yo?woman?with extensive stage SCLC with multiple brain metastases. She started carbo/etoposide 07/08/2022. Added atezolizumab with cycle 2 (held for cycle 1 due to thyroid abnormalities). Completed 4 cycles before transitioning to maintenance atezolizumab 09/2022. Restaging scans 12/2022 demonstrated progressive disease; [facility] one liquid bx showed 16mut/mb. She then completed XRT to subcarinal/paratracheal LNs + adrenal glands 02/03/2023 before starting lurbinectidin 02/18/2023.? -continue with cycle 3 palliative lurbinectidin + neulasta support as scheduled. return to clinic in 3 weeks prior to next cycle with restaging prior -brain mets: s/p whole brain RT 07/2022 + started keppra for focal seizures 500mg BID. ENT following hearing. She has MRI brain 04/09/2023 with neurology visit at [facility] -hypothyroidism and Graves disease: on synthroid. chronic low back pain on oxycodone. hx long qtc. continues smoking daily. PCP to manage anxiety, COPD stage: extensive stage SCLC with multiple treated brain metastases. Intent of treatment: palliative plans to change treatment: no ECO # advance care planning, previously discussed with medical oncologist -prognosis: dismal -patient's understanding of disease: Good -lines of treatment 2+ -living will or power of trommel tender: Not done yet -patient is understanding of overall management: Good Related Data Home Medications Medication Instructions Recorded Confirmed acetaminophen 500 mg capsule 500 - 1,000 mg PO Q6H PRN 07/30/22 04/21/23 oxycodone 5 mg tablet 5 mg PO TID 11/07/22 04/21/23 cetirizine 10 mg capsule (Zyrtec) 10 mg PO QDAY PRN 11/13/22 04/21/23 polyethylene glycol 3350 17 17 g PO DAILY PRN 12/24/22 04/21/23 gram/dose oral powder (ClearLax) ondansetron 4 mg disintegrating 4 mg PO Q8H 02/18/23 04/21/23 tablet levetiracetam 100 mg/mL oral 500 mg PO BID 04/04/23 04/21/23 solution Previous Rx's Medication Instructions Recorded amlodipine 5 mg tablet 5 mg PO QDAY #90 tabs 07/17/22 calcium carbonate 600 mg calcium 600 mg PO QDAY #10 tabs 07/29/22 (1,500 mg) tablet (Calcium) atorvastatin 20 mg tablet 20 mg PO QPM #90 tabs 02/15/23 buspirone 10 mg tablet 10 mg PO TID #40 tabs 04/04/23 escitalopram oxalate 10 mg tablet 10 mg PO QDAY #30 tabs 04/04/23 (Lexapro) potassium chloride 20 mEq 20 meq PO QDAY #10 tabs 04/21/23 tablet,extended release prochlorperazine maleate 5 mg 5 mg PO 3XD PRN nausea/vomiting 04/23/23 tablet #100 tabs levothyroxine 100 mcg tablet 100 mcg PO DAILY #90 tabs 04/24/23 Allergies Allergy/AdvReac Type Severity Reaction Status Date / Time No Known Drug Allergies Allergy Verified 04/29/23 09:06 [facility] Medical History (Updated 04/29/23 @ 20:26 by Darion Curtis MD) Eustachian tube dysfunction ?H69.90 - Unspecified Eustachian tube disorder, unspecified ear (ICD-10) COPD (chronic obstructive pulmonary disease) ?J44.9 - Chronic obstructive pulmonary disease, unspecified (ICD-10) Rash in adult ?R21 - Rash and other nonspecific skin eruption (ICD-10) Primary hypertension ?I10 - Essential (primary) hypertension (ICD-10) Mixed hyperlipidemia ?E78.2 - Mixed hyperlipidemia (ICD-10) 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 - Polyp of vocal cord and larynx (ICD-10) Nicotine dependence ?F17.200 - Nicotine dependence, unspecified, uncomplicated (ICD-10) Metastatic lung cancer (metastasis from lung to other site) ?C34.90 - Malignant neoplasm of unspecified part of unspecified bronchus or lung (ICD-10) Pleural effusion ?J90 - Pleural effusion, not elsewhere classified (ICD-10) Long QT syndrome (08/02/09) ?I45.81 - Long QT syndrome (ICD-10) Insomnia ?G47.00 - Insomnia, unspecified (ICD-10) Hypothyroidism ?E03.9 - Hypothyroidism, unspecified (ICD-10) Hidradenitis suppurativa ?L73.2 - Hidradenitis suppurativa (ICD-10) Health care directive on file (11/30/20) ?Z78.9 - Other specified health status (ICD-10) Graves' disease ?E05.00 - Thyrotoxicosis with diffuse goiter without thyrotoxic crisis or storm (ICD-10) Chronic low back pain ?M54.50 - Low back pain, unspecified (ICD-10) ?G89.29 - Other chronic pain (ICD-10) Anxiety ?F41.9 - Anxiety disorder, unspecified (ICD-10) Surgical History History of ankle surgery (03/2018) ?Z98.890 - Other specified postprocedural states (ICD-10) History of reduction mammoplasty (2001) ?Z98.890 - Other specified postprocedural states (ICD-10) Family History Paternal Grandmother Breast cancer Social History Narrative: - 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, 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, 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, 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, social ETOH Smoking Status: Current every day smoker What tobacco products do you use: cigarettes Smoking packs per day: 1 Smoking cigarettes per day: 20.0 Smoking quit date/years: <= 15 years ago Do you use any of these nicotine containing products: None Second hand tobacco smoke exposure: No How often do you have a drink containing alcohol: monthly or less Alcohol type: hard liquor How many standard drinks containing alcohol do you have on a typical day: 1 or 2 How often do you have six or more drinks on one occasion: Never AUDIT-C Alcohol total score: 1 Non-prescribed substance use: denies use Caffeine: Yes Little interest or pleasure in doing things: not at all Feeling down, depressed, or hopeless: not at all Are you using contraception or practicing any form of control: No service: No Exam Narrative: Exam Narrative: Constitutional: Appears well-developed and well-nourished. Alert. Conversant. Non toxic. HENT: Head: Atraumatic. Nose: Nose normal. Mouth/Throat: Oral mucosa is clear and moist. no trismus. Pharynx normal. Tonsils symmetric. No tonsillar enlargement, erythema, or exudate. Eyes: Conjunctivae normal. EOM normal. Pupils equal, round, and reactive to light. No scleral icterus. Neck: Normal range of motion. Neck supple. No tracheal deviation present. Cardiovascular: Port in left upper chest. Normal rate, regular rhythm. No gallop. No friction rub. No murmur heard. Symmetric radial artery pulses Pulmonary/Chest: Effort normal. No stridor. No respiratory distress. No wheezes. No rales. No rhonchi . No tenderness. Abdominal: Soft. Bowel sounds normal. No distension. No mass. No tenderness. No rebound. No guarding. Musculoskeletal: RUE: Normal range of motion. No tenderness. No deformity LUE: Normal range of motion. No tenderness. No deformity RLE: Normal range of motion. No edema. No tenderness. No deformity LLE: Normal range of motion. No edema. No tenderness. No deformity Lymph: No cervical adenopathy. Neurological: Mental status normal. Attention normal. Alert and oriented x3. GCS 15. Memory normal. Speech fluent. Cognition normal. Cranial Nerves intact II-XII except I did not formally test gag or visual acuity. EOMI. Palate elevates symmetrically and tongue protrudes in the midline. 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 She has intact finger abduction but is somewhat clumsy with finger movements and showing me the okay sign with the right hand. Normal on the left. 5/5 left upper extremity triceps, deltoi d, biceps, popcorn machine operator, thumb opposition, finger abduction. 5/5 hip flexors (L3) on the right and le ft 5/5 quadriceps (L4) on the right and lef t 5/5 tibialis anterior on the right and l eft 5/5 EHL (L5) on the right and left 5/5 gastrocnemius (S1) on the right and left 5/5 hamstring on the right and left Sensation intact to light touch in both upper extremities (C4-T1) Sensation intact to light touch in Both lower extremities (L4-S1). Finger to nose and coordination normal. Gait normal. Skin: Skin is warm and dry. No rash noted. No pallor. Normal capillary refill. Psychiatric: Normal mood. Normal affect. Const: Vital Signs, click to edit/add: Vital Signs - 24 hr 04/29/23 09:08 04/29/23 09:56 04/29/23 10:00 Temperature 99.0 F Pulse Rate 52 L 51 L Pulse Rate [Pulse Oximeter] 66 Respiratory Rate 16 Blood Pressure Blood Pressure [Ri ght Upper Arm] 125/77 Pulse Oximetry 95 96 94 Oxygen Delivery Me thod Room Air 04/29/23 10:02 04/29/23 10:15 04/29/23 10:30 Temperature Pulse Rate 51 L 51 L 56 L Pulse Rate [Pulse Oximeter] Respiratory Rate 16 Blood Pressure 113/51 L Blood Pressure [Ri ght Upper Arm] Pulse Oximetry 94 95 96 Oxygen Delivery Me thod 04/29/23 10:32 04/29/23 10:33 04/29/23 10:45 Temperature Pulse Rate 55 L 54 L 48 L Pulse Rate [Pulse Oximeter] Respiratory Rate 16 Blood Pressure 141/63 H Blood Pressure [Ri ght Upper Arm] Pulse Oximetry 97 98 96 Oxygen Delivery Me thod 04/29/23 11:03 04/29/23 11:15 04/29/23 11:30 Temperature Pulse Rate 56 L 50 L 49 L Pulse Rate [Pulse Oximeter] Respiratory Rate Blood Pressure Blood Pressure [Ri ght Upper Arm] Pulse Oximetry 95 96 96 Oxygen Delivery Me thod 04/29/23 11:32 04/29/23 11:45 04/29/23 12:00 Temperature Pulse Rate 49 L 48 L 50 L Pulse Rate [Pulse Oximeter] Respiratory Rate 16 Blood Pressure 113/48 L Blood Pressure [Ri ght Upper Arm] Pulse Oximetry 96 97 96 Oxygen Delivery Me thod 04/29/23 12:02 04/29/23 12:03 04/29/23 13:11 Temperature Pulse Rate 49 L 50 L 57 L Pulse Rate [Pulse Oximeter] Respiratory Rate 16 Blood Pressure 117/54 L Blood Pressure [Ri ght Upper Arm] Pulse Oximetry 97 96 98 Oxygen Delivery Me thod 04/29/23 13:15 04/29/23 13:30 04/29/23 13:32 Temperature 98.2 F Pulse Rate 49 L 51 L 49 L Pulse Rate [Pulse Oximeter] Respiratory Rate 16 Blood Pressure 117/46 L Blood Pressure [Ri ght Upper Arm] Pulse Oximetry 97 97 97 Oxygen Delivery Me thod 04/29/23 13:45 04/29/23 14:00 04/29/23 14:02 Temperature 98.2 F Pulse Rate 51 L 53 L 50 L Pulse Rate [Pulse Oximeter] Respiratory Rate 16 Blood Pressure 109/52 L Blood Pressure [Ri ght Upper Arm] Pulse Oximetry 97 99 97 Oxygen Delivery Me thod 04/29/23 14:15 04/29/23 14:30 04/29/23 14:32 Temperature Pulse Rate 52 L 59 L 57 L Pulse Rate [Pulse Oximeter] Respiratory Rate 16 Blood Pressure 128/58 L Blood Pressure [Ri ght Upper Arm] Pulse Oximetry 97 99 99 Oxygen Delivery Me thod 04/29/23 14:45 Temperature Pulse Rate 53 L Pulse Rate [Pulse Oximeter] Respiratory Rate Blood Pressure Blood Pressure [Ri ght Upper Arm] Pulse Oximetry 99 Oxygen Delivery Me thod Course Vital Signs Vital signs: Initial Vital Signs Temperature 99.0 F 04/29/23 09:08 Temperature Source Temporal Artery Scan 04/29/23 09:08 Pulse Rate 66 04/29/23 09:08 Pulse Rhythm Regular 04/29/23 09:08 Pulse Strength 3+ Normal 04/29/23 09:08 Respiratory Rate 16 04/29/23 09:08 Blood Pressure 125/77 04/29/23 09:08 Blood Pressure Mean 93 04/29/23 09:08 Blood Pressure Position Sitting 04/29/23 09:08 Pulse Oximetry 95 04/29/23 09:08 Oxygen Delivery Method Room Air 04/29/23 09:08 Vital Signs Temperature 99.0 F 04/29/23 09:08 Pulse Rate 66 04/29/23 09:08 Respiratory Rate 16 04/29/23 09:08 Blood Pressure 125/77 04/29/23 09:08 Pulse Oximetry 95 04/29/23 09:08 Oxygen Delivery Method Room Air 04/29/23 09:08 Temperature 98.2 F 04/29/23 14:02 Pulse Rate 53 L 04/29/23 14:45 Respiratory Rate 16 04/29/23 14:32 Blood Pressure 128/58 L 04/29/23 14:32 Pulse Oximetry 99 04/29/23 14:45 Oxygen Delivery Method Room Air 04/29/23 09:08 Medical Decision Making MDM Narrative Medical decision making narrative: 57-year-old female with known metastatic lung cancer and previous brain Mets causing right upper extremity seizures presents to the ER today with a self- limited right lower extremity seizure that occurred 2 days ago and now some numbness in climb in his affecting her right hand ongoing since yesterday. Concern here is for possible recurrent or expanding Mets, hemorrhage into a met, new acute stroke, no acute seizures, metabolic disturbance causing seizures, among others. She did lose her vision did and fall to the floor during her right lower extremity seizure on Friday but this does not sound like a syncopal event. EKG shows sinus rhythm. Laboratory workup shows a white count of 15.4, mild anemia with a hemoglobin 10.6. She is not having any fever or any other clear symptoms of infection. Sodium normal. Kidney function and liver function normal. She is on Keppra to suppress the seizures affecting her right hand. Keppra level is currently pending. CT imaging does show a possible infarct affecting the patient's right occipital lobe which was previously known. Unclear if is any acute hemorrhage into the infarct or not. We made efforts to contact the patient's oncologist, unfortunately Dr. Shrestha is on vacation this week. We did contact the patient's radiation oncology team through the [facility]. Discussed with the PAJane. She recommends that we get MRI with and without contrast. If there are new or expanding Mets, they may be treatable by radiation therapy MRI was obtained and does confirm the presence of 3 new Mets, 1 in the left postcentral gyrus which would anatomically correlate with the patient's right sided symptoms. Discussed again with [facility] providers. They will set the patient up start radiation therapy for that lesion within 2 days. They will contact the patient and with an appointment in [place] on . Patient and her are disc ridge to hear that there is new Mets but are please that they were able to get a rapid plan of care. They are eager for discharge from the ER. At this point there is not much sign of surrounding vasogenic edema so will hold off on any steroids. Since she has now been 48 hours from any seizure, will hold off on any adjustments of her Keppra level, pending the Keppra result or if the patient has more seizures. She will follow up by with her radiation oncologist. Precautions for return to the ER reviewed. Lab Data Labs: Lab Results 04/29/23 Range/Units 09:50 WBC 15.45 H (4.50-11.00) K/uL RBC 3.17 L (4.00-5.20) m/uL Hgb 10.6 L (12.0-16.0) gm/dL Hct 31.9 L (33.0-51.0) % MCV 101 H (80-100) fL MCH 33 (26-34) pg MCHC 33 (32-36) gm/dL RDW Coeff of Josselyn 14.8 (11.5-15.5) % Plt Count 157 (140-440) K/uL Neut % (Auto) 85.4 H (42.0-72.0) % Lymph % (Auto) 4.5 L (20-44) % Jerauld % (Auto) 8.0 (0.0-11.0) % Eos % (Auto) 0.6 (0.0-7.0) % Baso % (Auto) 0.5 (0.0-3.0) % Neut # (Auto) 13.20 H (1.7-7.0) K/uL Lymph # (Auto) 0.70 L (0.90-2.90) K/uL Jerauld # (Auto) 1.20 H (0.00-0.90) K/UL Eos # (Auto) 0.10 (0.00-0.50) K/uL Baso # (Auto) 0.10 (0.00-0.30) K/uL Abs Immat Gran (auto) 0.20 (0.00-0.30) K/uL Imm/Tot Granulo (auto) 1.0 % INR 0.84 L (0.91-1.10) Sodium 136 (135-149) mmol/L Potassium 3.9 (3.6-5.1) mmol/L Chloride 103 (96-114) mmol/L Carbon Dioxide 28 (20-32) mmol/L Anion Gap 5 L (7-15) mEq/L BUN 15 (7-30) mg/dL Creatinine 0.6 (0.5-1.5) mg/dL Estimated Creat Clear 98.18 Estimated GFR 103 ml/min Glucose 93 (60-115) mg/dL Calcium 8.7 (8.4-10.6) mg/dL Total Bilirubin 0.2 (0.1-1.5) mg/dL AST 16 (12-35) U/L ALT 14 (4-35) U/L Alkaline Phosphatase 95 (40-150) U/L Total Protein 6.4 (6.0-8.3) g/dL Albumin 4.0 (3.3-5.0) g/dL Imaging Data MRI brain with and without contrast: Attestation: I have reviewed the pertinent imaging results. Radiologist's impression: IMPRESSION: 1. Three new intracranial metastases as detailed above. Lesion within the left high postcentral gyrus may contribute to the patient`s symptoms. 2. No acute ischemia. 3. Extensive chronic microvascular ischemic/posttreatment sequela within the supratentorial white matter. 4. Enlargement of the bilateral extraocular muscles, similar compared to prior. Correlate for any clinical symptoms of thyroid ophthalmopathy. CT scan - head: Attestation: I have reviewed the pertinent imaging results. Radiologist's impression: IMPRESSION: 1. A 6 mm focus of dense blood products at the left occipital lobe corresponds to the previously noted hemorrhagic metastatic focus in this region on the 01/07/2023 exam. No significant perilesional edema. No other intracranial blood products identified. 2. Encephalomalacia and gliosis at the lateral left precentral gyrus, corresponding to previously noted metastatic lesion. 3. No evidence of new intracranial metastases on this noncontrast exam. ECG Data Attestation: I personally reviewed and interpreted this ECG as follows: Interpretation: Sinus bradycardia Rate 51 MI 134 QRS axis normal axis. No pathologic Q-waves. ST segment/T wave: No ST segment elevation or depression QTc: 464 Discharge Plan Discharge Clinical Impression: Seizure, Metastasis to brain, Right arm weakness Patient Disposition: Home, Self-Care Condition: Stable Instructions: Brain Tumors (DC) Additional Instructions: We suspect for the numbness in your right arm and the seizure that affected your right leg a couple of days ago are due to the new metastasis spots in your brain. You should receive a phone call or message from [facility] radiation to start on radiation therapy for these new spots on . Be sure to follow-up with your oncologist within 1-2 weeks as well. Continue on your current medications, especially Keppra. Return to the ER right away if you have any worsening symptoms such as worsening numbness or weakness in your arm, more seizures, headache, confusion, vomiting, or if you have any other concerns. Prescriptions: No Action oxycodone 5 mg tablet 5 mg PO TID potassium chloride 20 mEq tablet extended release 20 meq PO QDAY Qty: 10 0RF escitalopram oxalate [Lexapro] 10 mg tablet 10 mg PO QDAY Qty: 30 1RF Rx Instructions: 1/2 QD x 6 days then 1 QD buspirone 10 mg tablet 10 mg PO TID Qty: 40 1RF levetiracetam 100 mg/mL solution 500 mg PO BID calcium carbonate [Calcium 600] 600 mg calcium (1,500 mg) tablet 600 mg PO QDAY Qty: 10 0RF Zyrtec 10 mg capsule 10 mg PO QDAY PRN polyethylene glycol 3350 [ClearLax] 17 gram/dose powder 17 g PO DAILY PRN ondansetron 4 mg tablet,disintegrating 4 mg PO Q8H acetaminophen 500 mg capsule 500 - 1,000 mg PO Q6H PRN amlodipine 5 mg tablet 5 mg PO QDAY Qty: 90 3RF atorvastatin 20 mg tablet 20 mg PO QPM Qty: 90 0RF prochlorperazine maleate 5 mg tablet 5 mg PO 3XD PRN (Reason: nausea/vomiting) Qty: 100 0RF levothyroxine 100 mcg tablet 100 mcg PO DAILY Qty: 90 2RF Patient Comments: started 10/11/2022 Follow Up/Referrals: Andres Trimble MD [Primary Care Provider] - Stand Alone Forms: [facility] Info Instructions
--- NOTE | 2023-04-29 10:31 | CT_ITS ---
Patient: OMID RIOS Facility:?[facility] Patient ID:?[id number] Site Patient ID:?[id number]. Site :?1965 Study:?CT-Head WITHOUT-04/29/2023 10:59:24 AM Ordering Physician:DANITZA Final Report: INDICATION: Right-sided leg and arm tremors, brain metastases, on chemotherapy TECHNIQUE: Noncontrast axial CT of the head. Coronal and sagittal reformats. Bone and soft tissue algorithms. COMPARISON: MRI brain 01/07/2023 FINDINGS: There is a 6 mm focus of dense blood products at the left occipital lobe, corresponding to the previously noted hemorrhagic metastatic focus in this region on the 2022 MRI brain. Encephalomalacia/gliosis and punctate hyperdensity/mineralization at the lateral left precentral gyrus, corresponding to the previously noted metastatic lesion on prior MRI. Poole-white matter differentiation is grossly maintained. No midline shift, hydrocephalus or herniation. Scattered hypoattenuation throughout the supratentorial white matter. Mild generalized cerebral volume loss. Partially empty sella configuration. Minor calcific plaquing at the carotid siphons. Bony calvarium appears grossly intact. No paranasal sinus air-fluid level or mastoid effusion. Unremarkable orbits. IMPRESSION: 1. A 6 mm focus of dense blood products at the left occipital lobe corresponds to the previously noted hemorrhagic metastatic focus in this region on the 01/07/2023 exam. No significant perilesional edema. No other intracranial blood products identified. 2. Encephalomalacia and gliosis at the lateral left precentral gyrus, corresponding to previously noted metastatic lesion. 3. No evidence of new intracranial metastases on this noncontrast exam. Please note that all CT scans at this facility use dose modulation, iterative reconstruction, and/or weight-based dosing when appropriate to reduce radiation dose to as low as reasonably achievable. Dictated by Priya Flower MD @ 04/29/2023 11:19:23 AM Signed by:?Priya Flower MD @04/29/2023 11:19:23 AM (Electronic Signature)
[2023-04-29 10:45] LABS: Basophils Percent Auto 0.5 % (0.0-3.0); Eosinophils Percent Auto 0.6 % (0.0-7.0); Hematocrit 31.9 % (33.0-51.0); Hemoglobin* 10.6 gm/dL (12.0-16.0); Lymphocytes Percent Auto 4.5 % (20-44); Mean Corpuscular HGB Conc 33 gm/dL (32-36); Mean Corpuscular Hemoglobin 33 pg (26-34); Mean Corpuscular Volume 101 fL (80-100); Neutrophils Percent Auto 85.4 % (42.0-72.0); Platelet Count* 157 K/uL (140-440); RDW Coefficient of Variation % 14.8 % (11.5-15.5); Red Blood Count 3.17 m/uL (4.00-5.20); White Blood Count* 15.45 K/uL (4.50-11.00)
[2023-04-29 10:56] LABS: Chloride* 103 mmol/L (96-114); Potassium* 3.9 mmol/L (3.6-5.1); Sodium* 136 mmol/L (135-149)
[2023-04-29 10:58] LABS: Alkaline Phosphatase* 95 U/L (40-150); Anion Gap 5 mEq/L (7-15); Aspartate Amino Transferase* 16 U/L (12-35); Bilirubin Total* 0.2 mg/dL (0.1-1.5); Carbon Dioxide* 28 mmol/L (20-32); Creatinine* 0.6 mg/dL (0.5-1.5); Est. Creatinine Clearance* 98.18; Estimated Glomerular Filt Rate 103 ml/min; INR 0.84 (0.91-1.10); Total Protein* 6.4 g/dL (6.0-8.3)
[2023-04-29 10:59] LABS: Alanine Aminotransferase* 14 U/L (4-35); Blood Urea Nitrogen* 15 mg/dL (7-30); Calcium* 8.7 mg/dL (8.4-10.6); Glucose* 93 mg/dL (60-115)
[2023-04-29 11:13] LABS: Slide Review Reflex No
--- NOTE | 2023-04-29 11:56 | MR_ITS ---
Patient: OMID RIOS Facility:?[facility] Patient ID:?[id number] Site Patient ID:?[id number]. Site :?1965 Study:?MRI-Head WO/W DOTAREM 15ML-04/29/2023 2:27:17 PM Ordering Physician:DANITZA Final Report: INDICATION: History of right arm weakness. History of intracranial metastatic disease. TECHNIQUE: Brain MRI with contrast. The following sequences were obtained: Sagittal T1 weighted sequence. DWI and ADC mapping sequences. Axial FLAIR and HERLINDA T2 weighted sequences. Susceptibility weighted or GRE sequence. T1 weighted post-contrast sequence(s). 15 cc of Dotarem gadolinium based contrast agent was used. COMPARISON: Brain MRI from 01/07/2023. FINDINGS: Multiple enhancing metastases indexed upon series 15 as follows: 6 millimeter left superior postcentral gyrus lesion, image 38. Minimal associated vasogenic edema. 10 millimeter ring-enhancing lesion right superior cerebellar hemisphere, image 112. Mild associated vasogenic edema. 6 millimeter lesion left medial cerebellar hemisphere, image 124. Stable intrinsically T1 hyperintense and variably enhancing metastases within the mid left parietal postcentral gyrus, the left posterior temporal lobe, and right lateral cerebellar hemisphere. Mild encephalomalacia associated with the left postcentral gyrus lesion. Variable susceptibility artifact associated with many of these lesions, compatible with mineralization/degraded blood products. No evidence of acute ischemia. No evidence of acute or chronic intracranial blood products. Patchy and confluent T2/FLAIR hyperintensity within the deep/periventricular supratentorial white matter, typical for chronic microvascular ischemic/posttreatment change. A tiny chronic right cerebellar infarct. No hydrocephalus or extra-axial collections. The pituitary gland, parasellar structures and optic chiasm are normal. All the major intracranial vascular structures demonstrate normal flow-related signal. Enlargement and abnormal T2 hyperintense signal within the extraocular muscles bilaterally. No calvarial or skull base marrow signal abnormality. No obstructive sinus disease. Bilateral partial mastoid effusions. No extracranial soft tissue findings. IMPRESSION: 1. Three new intracranial metastases as detailed above. Lesion within the left high postcentral gyrus may contribute to the patient`s symptoms. 2. No acute ischemia. 3. Extensive chronic microvascular ischemic/posttreatment sequela within the supratentorial white matter. 4. Enlargement of the bilateral extraocular muscles, similar compared to prior. Correlate for any clinical symptoms of thyroid ophthalmopathy. Dictated by Simon Lara MD @ 04/29/2023 3:10:13 PM Signed by:?Simon Lara MD @04/29/2023 3:10:13 PM (Electronic Signature)
[2023-04-30 22:03] LABS: Keppra (Levetiracetam) 20 ug/mL (10-40)
== END 2023-04-29 16:36 | disposition home or self-care (01) ==
PROVIDERS: Emergency Provider Emergency Medicine; PCP Family Medicine
DX: R56.9 Unspecified convulsions (principal); C34.90 Malignant neoplasm of unspecified part of unspecified bronchus or lung; C79.31 Secondary malignant neoplasm of brain; R53.1 Weakness
CPT/HCPCS: 36415; 70450; 70553; 80053; 80177; 85025; 85610; 93005; 99284; 99285; A9575

== ENCOUNTER 2023-05-20 14:51 | Emergency (ER) | payer BC, SELFPAY ==
[2023-05-20 14:57] VITALS: BP 125/70; PULSE 59; RESP 18; TEMP 37.1; O2SAT 96; BMI 22.1
--- NOTE | 2023-05-20 15:22 | CT_ITS ---
Patient: OMID RIOS Facility:?[facility] Patient ID:?[id number] Site Patient ID:?[id number]. Site :?1965 Study:?CT-Head W/O-05/20/2023 3:42:10 PM Ordering Physician:TAMARA Final Report: INDICATION: Seizures, known lung metastases. TECHNIQUE: CT head without contrast. COMPARISON: Head CT and brain MRI both dated 04/29/2023 FINDINGS: CSF spaces: Within normal limits for age. Brain parenchyma: Mild cerebral atrophy with mild low-density within the deep white matter. Hyperdense focus within the left occipital lobe redemonstrated measuring 6 millimeters. Stable encephalomalacia within the left parietal lobe. Skull base and calvarium: The visualized paranasal sinuses and mastoid air cells demonstrate no acute or significant findings. The visualized orbits are grossly unremarkable. No skull fractures. IMPRESSION: 1. No new mass effect or new intracranial bleed compared to the prior exam. 2. Known hemorrhagic metastasis within the left occipital lobe is stable. 3. Left parietal encephalomalacia and nonspecific white matter disease, similar to the prior exam. Please note that all CT scans at this facility use dose modulation, iterative reconstruction, and/or weight-based dosing when appropriate to reduce radiation dose to as low as reasonably achievable. Dictated by Aris Trujillo MD @ 05/20/2023 3:48:15 PM Signed by:?Aris Trujillo MD @05/20/2023 3:48:15 PM (Electronic Signature)
--- NOTE | 2023-05-20 15:22 | ED_ITS ---
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 She has had seizures, maintained on Keppra, had been having more difficulty and her neurologist at [place] increased her dose of dexamethasone last week for 5 days. She is back on 4 mg b.i.d. rather than 8 mg b.i.d. but says she did not notice a significant change in seizure frequency while on the higher dose of steroid. She has seizures most days, some partial she says some are generalized. She did have a seizure earlier today, focal. She has been in contact with her neurologist at [place], the nurse they were advised that if she had more seizure she should be seen in an ER and have a CT scan and EEG. They noted that she did not need further lab work done today. She does not have any acute complaints. Minimal trouble with headaches, no vomiting, no focal neurologic complaints. No fevers, chest pain, shortness of breath, or other complaints. Related Data Home Medications Medication Instructions Recorded Confirmed acetaminophen 500 mg capsule 500 - 1,000 mg PO Q6H PRN 07/30/22 05/20/23 oxycodone 5 mg tablet 5 mg PO TID 11/07/22 05/20/23 cetirizine 10 mg capsule (Zyrtec) 10 mg PO QDAY PRN 11/13/22 05/20/23 polyethylene glycol 3350 17 17 g PO DAILY PRN 12/24/22 05/20/23 gram/dose oral powder (ClearLax) ondansetron 4 mg disintegrating 4 mg PO Q8H 02/18/23 05/20/23 tablet dexamethasone 2 mg tablet 2 mg PO BID 05/20/23 05/20/23 omeprazole 20 mg capsule,delayed 20 mg PO QAM 05/20/23 05/20/23 release Previous Rx's Medication Instructions Recorded amlodipine 5 mg tablet 5 mg PO QDAY #90 tabs 07/17/22 calcium carbonate 600 mg calcium 600 mg PO QDAY #10 tabs 07/29/22 (1,500 mg) tablet (Calcium) buspirone 10 mg tablet 10 mg PO TID #40 tabs 04/04/23 escitalopram oxalate 10 mg tablet 10 mg PO QDAY #30 tabs 04/04/23 (Lexapro) potassium chloride 20 mEq 20 meq PO QDAY #10 tabs 04/21/23 tablet,extended release prochlorperazine maleate 5 mg 5 mg PO 3XD PRN nausea/vomiting 04/23/23 tablet #100 tabs levothyroxine 100 mcg tablet 100 mcg PO DAILY #90 tabs 04/24/23 atorvastatin 20 mg tablet 20 mg PO QPM #90 tabs 05/14/23 Allergies Allergy/AdvReac Type Severity Reaction Status Date / Time No Known Drug Allergies Allergy Verified 05/20/23 15:06 Review of Systems Status of ROS: Reports: 10 or more systems reviewed and unremarkable except as noted in History and below [facility] Medical History Eustachian tube dysfunction ?H69.90 - Unspecified Eustachian tube disorder, unspecified ear (ICD-10) COPD (chronic obstructive pulmonary disease) ?J44.9 - Chronic obstructive pulmonary disease, unspecified (ICD-10) Rash in adult ?R21 - Rash and other nonspecific skin eruption (ICD-10) Primary hypertension ?I10 - Essential (primary) hypertension (ICD-10) Mixed hyperlipidemia ?E78.2 - Mixed hyperlipidemia (ICD-10) 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 - Polyp of vocal cord and larynx (ICD-10) Nicotine dependence ?F17.200 - Nicotine dependence, unspecified, uncomplicated (ICD-10) Metastatic lung cancer (metastasis from lung to other site) ?C34.90 - Malignant neoplasm of unspecified part of unspecified bronchus or lung (ICD-10) Pleural effusion ?J90 - Pleural effusion, not elsewhere classified (ICD-10) Long QT syndrome (08/02/09) ?I45.81 - Long QT syndrome (ICD-10) Insomnia ?G47.00 - Insomnia, unspecified (ICD-10) Hypothyroidism ?E03.9 - Hypothyroidism, unspecified (ICD-10) Hidradenitis suppurativa ?L73.2 - Hidradenitis suppurativa (ICD-10) Health care directive on file (11/30/20) ?Z78.9 - Other specified health status (ICD-10) Graves' disease ?E05.00 - Thyrotoxicosis with diffuse goiter without thyrotoxic crisis or storm (ICD-10) Chronic low back pain ?M54.50 - Low back pain, unspecified (ICD-10) ?G89.29 - Other chronic pain (ICD-10) Anxiety ?F41.9 - Anxiety disorder, unspecified (ICD-10) Surgical History History of ankle surgery (03/2018) ?Z98.890 - Other specified postprocedural states (ICD-10) History of reduction mammoplasty (2001) ?Z98.890 - Other specified postprocedural states (ICD-10) Family History Paternal Grandmother Breast cancer Social History Narrative: - 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, 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, 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, 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, 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 Smoking Status: Current every day smoker What tobacco products do you use: c igarettes Smoking packs per day: 1 Smoking cigarettes per day: 20.0 Smoking quit date/years: <= 15 years ago Do you use any of these nicotine containing products: None Second hand tobacco smoke exposure: No How often do you have a drink containing alcohol: monthly or less Alcohol type: hard liquor How many standard drinks containing alcohol do you have on a typical day: 1 or 2 How often do you have six or more drinks on one occasion: Never AUDIT-C Alcohol total score: 1 Non-prescribed substance use: denies use Caffeine: Yes Little interest or pleasure in doing things: not at all Feeling down, depressed, or hopeless: not at all Are you using contraception or practicing any form of control: No service: No Exam Narrative: Exam Narrative: Vital signs as noted above. In general, an alert, well-appearing patient. Head: Normocephalic, atraumatic. Eyes: Pupils are equal reactive. Extraocular movements are full. Conjunctivae are normal. ENT: Mucous membranes are moist. Throat is normal. Neck: Supple without lymphadenopathy. Heart: Regular rate and rhythm. No murmur or rub. Lungs: Clear bilaterally. No increased work of breathing, crackles or wheezes. Abdomen: Soft and nontender. No organomegaly. Extremities: Well perfused. No edema. No calf tenderness. Pulses intact. Neurologic: Patient is alert and oriented to person and place. Speech is fluent. Face is symmetric. Moves all extremities equally. Affect: Normal. Skin: Warm and dry. Well perfused. Const: Vital Signs, click to edit/add: Vital Signs - 24 hr 05/20/23 14:57 Temperature 98.8 F Pulse Rate [Pulse Oximeter] 59 L Respiratory Rate 18 Blood Pressure [Ri ght Upper Arm] 125/70 Pulse Oximetry 96 Oxygen Delivery Me thod Room Air Documenting provider has reviewed patient's vital signs: yes Course Course ED Course: I reviewed the letter she has from [facility]. Discussed with her we do not have the ability to do EEG here but I can certainly do a CT scan. She says that the neurology clinic in [place] said that they will review the films and call her tomorrow with recommendations. CT head pending. CT read as stable by Radiology, she has a known hemorrhagic metastases in the left occipital lobe which is unchanged. There is no new mass effect or intracranial bleeding. I have relayed this to her, she will talk with [facility] tomorrow, images were pushed down to [facility]. Return at any time for acute worsening. Vital Signs Vital signs: Initial Vital Signs Temperature 98.8 F 05/20/23 14:57 Temperature Source Temporal Artery Scan 05/20/23 14:57 Pulse Rate 59 L 05/20/23 14:57 Respiratory Rate 18 05/20/23 14:57 Blood Pressure 125/70 05/20/23 14:57 Blood Pressure Mean 88 05/20/23 14:57 Blood Pressure Position Sitting 05/20/23 14:57 Pulse Oximetry 96 05/20/23 14:57 Oxygen Delivery Method Room Air 05/20/23 14:57 Vital Signs Temperature 98.8 F 05/20/23 14:57 Pulse Rate 59 L 05/20/23 14:57 Respiratory Rate 18 05/20/23 14:57 Blood Pressure 125/70 05/20/23 14:57 Pulse Oximetry 96 05/20/23 14:57 Oxygen Delivery Method Room Air 05/20/23 14:57 Temperature 98.8 F 05/20/23 14:57 Pulse Rate 59 L 05/20/23 14:57 Respiratory Rate 18 05/20/23 14:57 Blood Pressure 125/70 05/20/23 14:57 Pulse Oximetry 96 05/20/23 14:57 Oxygen Delivery Method Room Air 05/20/23 14:57 Discharge Plan Discharge Clinical Impression: Metastatic lung cancer (metastasis from lung to other site), Metastasis to brain Patient Disposition: Home, Self-Care Condition: Stable Additional Instructions: CT of the head is read as stable compared to previous. This was sent down to [facility]. Please discuss further with them as planned. Return as needed if you are having more difficulties. Prescriptions: No Action oxycodone 5 mg tablet 5 mg PO TID potassium chloride 20 mEq tablet extended release 20 meq PO QDAY Qty: 10 0RF escitalopram oxalate [Lexapro] 10 mg tablet 10 mg PO QDAY Qty: 30 1RF Rx Instructions: 1/2 QD x 6 days then 1 QD buspirone 10 mg tablet 10 mg PO TID Qty: 40 1RF calcium carbonate [Calcium 600] 600 mg calcium (1,500 mg) tablet 600 mg PO QDAY Qty: 10 0RF Zyrtec 10 mg capsule 10 mg PO QDAY PRN polyethylene glycol 3350 [ClearLax] 17 gram/dose powder 17 g PO DAILY PRN ondansetron 4 mg tablet,disintegrating 4 mg PO Q8H acetaminophen 500 mg capsule 500 - 1,000 mg PO Q6H PRN dexamethasone 2 mg tablet 2 mg PO BID omeprazole 20 mg capsule,delayed release(DR/EC) 20 mg PO QAM amlodipine 5 mg tablet 5 mg PO QDAY Qty: 90 3RF prochlorperazine maleate 5 mg tablet 5 mg PO 3XD PRN (Reason: nausea/vomiting) Qty: 100 0RF levothyroxine 100 mcg tablet 100 mcg PO DAILY Qty: 90 2RF Patient Comments: started 10/11/2022 atorvastatin 20 mg tablet 20 mg PO QPM Qty: 90 1RF Follow Up/Referrals: Andres Trimble MD [Primary Care Provider] - Stand Alone Forms: [facility] Info Instructions
== END 2023-05-20 16:07 | disposition home or self-care (01) ==
PROVIDERS: Emergency Provider Emergency Medicine; PCP Family Medicine
DX: C34.92 Malignant neoplasm of unspecified part of left bronchus or lung (principal); C79.31 Secondary malignant neoplasm of brain
CPT/HCPCS: 70450; 99284

== ENCOUNTER 2023-05-28 07:00 | Outpatient (CLI) | payer BC, SELFPAY ==
--- OUTSIDE RECORDS SUMMARY | 2023-05-28 07:03 | XMS_ITS | Referral Summary ---
Author Name Unknown Organization [facility] Address [address] [place] [id number] Care Team Providers Care National Service Officer Name Role Phone Unavailable Primary Care Provider Unavailabl e Source Comments Patient records contain information from all sites at [facility]. For routine questions regarding patient records, call [phone] during business hours, M-F 8:00 AM - 5:00 PM Central Time. Record requests for emergency care only can be directed to [phone] at any time.[facility] Encounters Date Type Department Care Team Description 05/23/2023 Orders Only Department of Neurology in [place], [place] [address] [place] [address] Darion Heaton M.D. Secondary Malignant Neoplasm Brain (HCC) (Primary Dx); Seizure (HCC) 05/22/2023 Orders Only Department of Neurology in [place], [place] [address] [place] [address] Darion Heaton M.D. 05/20/2023 Clinical Communication Department of Neurology in [place], [place] [address] [place] [phone] Lucy Bueno R.N. Update on Seizure/Episodes 05/12/2023 Refill Department of Neurology in [place], [place] [address] [place] [phone] Mohinder Ariza M.D. Med Refill 05/12/2023 Orders Only Department of Neurology in [place], [place] [address] [place] [phone] Mohinder Ariza M.D. 05/12/2023 Refill Department of Neurology in [place], [place] [address] [place] [address] Mohinder Ariza M.D. Med Refill 05/09/2023 9:00 AM CDT - 05/09/2023 12:56 PM CDT Hospital Encounter Department of Radiation Oncology in [address] [address] Marnie Schultz APRN, C.N.P., D.N.P. Geraldine Chang R.N. 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 05/08/2023 Orders Only Department of Neurology in [place], [place] [address] [place] [address] Mohinder Ariza M.D. 05/08/2023 Documentation Department of Neurology in [place], [place] [address] [place] [address] Mohinder Ariza M.D. 05/08/2023 Clinical Communication Department of Neurology in [place], [place] [address] [place] [address] Mohinder Ariza M.D. 05/08/2023 9:00 AM CDT - 05/08/2023 3:06 PM CDT Hospital Encounter Department of Radiation Oncology in [address] [address] Angel Luis Esquivel M.D. Secondary Malignant Neoplasm Brain (HCC) 05/08/2023 8:05 AM CDT Hospital Encounter Department of Radiation Oncology in [address] [address] Radha Patterson M.D. 05/07/2023 11:53 AM CDT - 05/07/2023 4:36 PM CDT Hospital Encounter Department of Radiation Oncology in [place], [place] [address] [place] [phone] Radha Patterson M.D. Secondary Malignant Neoplasm Brain (HCC) 05/07/2023 11:53 AM CDT Hospital Encounter Department of Radiation Oncology in [address] [address] Radha Patterson M.D. 05/06/2023 Refill Department of Neurology in [place], [place] [address] [place] [address] Mohinder Ariza M.D. Med Refill 05/06/2023 Clinical Communication Department of Neurology in [place], [place] [address] [place] [phone] Mohinder Ariza M.D. Prescription change and directions 05/06/2023 Clinical Communication Department of Radiation Oncology in [address] [address] Jane Tobar P.A.-C., M.S. 05/06/2023 4:00 PM CDT Hospital Encounter Department of Radiation Oncology in [address] [address] Radha Patterson M.D. 05/02/2023 Clinical Communication Department of Neurology in [place], [place] [address] [place] [address] Mohinder Ariza M.D. levetiracetam 05/02/2023 11:40 AM CDT Telemedicine Department of Oncology in [place], [place] [address] [place] [phone] Mohinder Ariza M.D. Secondary Malignant Neoplasm Brain (HCC) (Primary Dx); Seizure (HCC) 05/01/2023 Orders Only Department of Neurology in [place], [place] [address] [place] [address] Mohinder Ariza M.D. 05/01/2023 Orders Only Department of Neurology in [place], [place] [address] [place] [address] Mohinder Ariza M.D. 05/01/2023 8:30 AM CDT - 05/01/2023 3:46 PM CDT Hospital Encounter Department of Radiation Oncology in [place], [place] [address] [place] [phone] Radha Patterson M.D. Secondary Malignant Neoplasm Brain (HCC) 05/01/2023 7:41 AM CDT - 05/01/2023 8:29 AM CDT Hospital Encounter Department of Radiation Oncology in [address] [address] Radha Patterson M.D. 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 Secondary Malignant Neoplasm Brain (HCC) 04/30/2023 Orders Only Department of Radiation Oncology in [address] [address] Radha Patterson M.D. Secondary Malignant Neoplasm Brain (HCC) (Primary Dx) 04/29/2023 Clinical Communication Department of Radiation Oncology in [address] [address] Jane Tobar P.A.-C., M.S. 04/29/2023 Orders Only Department of Radiation Oncology in [address] [address] Jane Tobar P.A.-C., M.S. 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 03/31/2023 Refill Department of Neurology in [place], [place] [address] [place] [address] Mohinder Ariza M.D. Med Refill 02/27/2023 Refill Department of Radiation Oncology in [place], [place] [address] [place] [address] Marnie Schultz APRN, C.N.P., D.N.P. Med Change Request from Last 3 Months Allergies No known active allergies Medications Medication Sig Dispensed Refills Start Date End Date Status memantine (NAMENDA) 10 mg tablet Take 1 tablet (10 mg total) by mouth as directed. Week 1: 5 mg (1/2 tablet) in AM; Week 2: 5 mg (1/2 tablet) in AM and 5 mg in PM; Week 3: 10mg in AM and 5 mg in PM; Week 4: 10mg in AM and 10 mg in PM 35 tablet 0 3 Active amLODIPine (NORVASC) 5 mg tablet Take 5 mg by mouth daily. 0 3 Active acetaminophen (TYLENOL) 500 mg tablet Twice A Day as needed 0 Active ibuprofen (ADVIL,MOTRIN) 200 mg tablet Take 200 mg by mouth 4 (four) times a day as needed. 0 0 Active levothyroxine (SYNTHROID, LEVOTHROID) 100 mcg tablet Take 100 mcg by mouth daily. 0 3 Active atorvastatin (LIPITOR) 20 mg tablet 20 MG ORALLY EVERY DAY AT BEDTIME 0 3 Active prochlorperazine (COMPAZINE) 25 mg suppository Insert 10 mg into the rectum every 12 (twelve) hours as needed for nausea or vomiting. 0 Active memantine (NAMENDA) 10 mg tablet Take 1 tablet (10 mg total) by mouth 2 (two) times a day. 60 tablet 0 3 Active Advair Diskus 250-50 mcg/act diskus inhaler Inhale 1 puff 2 (two) times a day. 0 3 Active oxyCODONE (ROXICODONE) 5 mg immediate release tablet TAKE 1 - 2 TABLET BY ORAL ROUTE THREE TIMES DAILY NEEDED, MAX 3/DAY 0 3 Active lidocaine viscous (lidocaine) 2 % mucosal solution Apply 5 mL to the mouth or throat 4 (four) times a day. TAKE 5-10 ML BY MOUTH 4 TIMES A DAY AFTER MEALS AND BEDTIME. HOLD IN MOUTH FOR 1 MINUTE. DO NOT EAT OR DRINK FOR 15-30 MINUTES AFTER USE. 100 mL 1 4 Active dexAMETHasone (DECADRON) 2 mg tablet Take 1 tablet (2 mg total) by mouth 2 (two) times a day. 20 tablet 0 4 Active Additional Information Patient not taking.Reported on 05/07/2023 levETIRAcetam (KEPPRA) 100 mg/mL solutionIndication s:Secondary Malignant Neoplasm Brain (HCC) Take 15 mL (1,500 mg total) by mouth 2 (two) times a day. 1000 mL 10 4 Active dexAMETHasone (DECADRON) 4 mg tablet Take 2 tablets (8 mg total) by mouth 2 (two) times a day for 5 days, THEN 1 tablet (4 mg total) 2 (two) times a day for 14 days. Then call MD for additional instructions.. 60 tablet 0 4 024 Active omeprazole (PriLOSEC) [address] capsule Take 1 capsule (20 mg total) by mouth every morning before breakfast. 30 capsule 1 4 Active dexAMETHasone (DECADRON) 6 mg tablet Take 6 mg by mouth 2 (two) times a day. 0 3 024 Discontinued HYDROcodone-acetam inophen (NORCO) 5-325 mg per tablet TAKE 1 TABLET BY ORAL ROUTE EVERY 8-12 HOURS NEEDED FOR CHRONIC PAIN MAX 3/DAY 0 3 024 Discontinued levETIRAcetam (KEPPRA) 500 mg tablet Take 1 tablet (500 mg total) by mouth 2 (two) times a day. 180 tablet 3 3 024 Discontinued clonazePAM (KlonoPIN) 0.5 mg disintegrating tablet Dissolve 1 tablet (0.5 mg total) in the mouth 2 (two) times a day as needed for seizures (Please take for seizure lasting greater than 1 minute). 30 tablet 0 3 024 Discontinued memantine (NAMENDA) 10 mg tablet Take 10 mg by mouth 2 (two) times a day. 0 Discontinued dexAMETHasone (DECADRON) 2 mg tablet Take 1 tablet (2 mg total) by mouth as directed. 1 tablet twice a day for 7 days; then 2 tablet daily for 7 days then stop 21 tablet 0 3 024 Discontinued levETIRAcetam (KEPPRA) 100 mg/mL solution TAKE 5 ML BY MOUTH 2 TIMES A DAY. SENT ALTERNATIVE PATIENT IS HAVING TROUBLE TOLERATING PILLS. 300 mL 11 3 024 Discontinued(Re order) levETIRAcetam (KEPPRA) 750 mg tablet Take 1 tablet (750 mg total) by mouth 2 (two) times a day. 60 tablet 11 4 024 Discontinued levETIRAcetam (KEPPRA) 100 mg/mL solution Take 7.5 mL (750 mg total) by mouth 2 (two) times a day. 300 mL 11 4 024 Discontinued(Re order) dexAMETHasone (DECADRON) 4 mg tablet Take 1 tablet (4 mg total) by mouth 2 (two) times a day. 10 tablet 0 4 024 Discontinued(Re order) levETIRAcetam (KEPPRA) 100 mg/mL solution Take 10 mL (1,000 mg total) by mouth 2 (two) times a day. 600 mL 4 024 Discontinued(Re order) dexAMETHasone (DECADRON) 4 mg tablet Take 1 tablet (4 mg total) by mouth 2 (two) times a day. 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 No 05/07/2023 Exercise Vital Sign Answer Date Recorde d On average, how many days pe r week do you engage in moderate to strenuous exercise (like a brisk walk)? 2 days 05/07/2023 On average, how many minutes do you engage in exercise at this level? 30 min 05/07/2023 Hunger Vital Sign Answer Date Recorded Within the past 12 months, y ou worried that your food would run out before you got the money to buy more. Never true 05/07/19 Within the past 12 months, t he food you bought just didn't last and you didn't have money to get more. Never true 05/07/2023 PRAPARE - Transportation Answer Date Re corded In the past 12 months, has l ack of transportation kept you from medical appointments or from getting medications? No 04/18 In the past 12 months, has l ack of transportation kept you from meetings, work, or from getting things needed for daily living? No 05/07/2023 Nutrition Answer Date Recorded Nutrition: EVOO Fat Source Unknown 05/06 On average, how many serving s of fruits and vegetables do you eat per day (serving size is equal to 1 cup or approximately the size of a tennis ball)? 0-2 05/07/2023 Dental Answer Date Recorded Dental: Regular Dentist Yes 05/07/19 Employment Answer Date Recorded Employment status Working with temporary restric tions 05/07/2023 Housing Stability Answer Date Recorded What is your living situation today? I have a [facility] place to live 05/07/2023 Sex and Gender Information Value Date Recorded Sex Assigned at Female 05/07/2023 9:41 AM CDT Gender Identity Female 05/07/2023 9:41 AM CDT Sexual Orientation Straight 05/07/2023 9: 41 AM CDT Last Filed Vital Signs Vital Sign Reading Time Taken Comments Blood Pressure 121/41 05/01/2023 7:54 AM CDT Pulse 65 05/01/2023 7:54 AM CDT Temperature 37 ??C (98.6 ??F) 01/31/2023 8:01 AM COLLECTIONS PROFESSIONAL Respiratory Rate - - Oxygen Saturation - - Inhaled Oxygen Concentration - - Weight 64.9 kg (143 lb 1.3 oz) 05/01/2023 7:54 A M CDT Height 170 cm (5' 6.93) 06/21/2022 8:47 AM CDT Body Mass Index 22.46 06/21/2022 8:47 AM CDT Plan of Treatment Upcoming Encounters Date Type Department Care Team (Latest Contact Info) Description 05/28/2023 9:00 AM CDT Clinical Communication Virtual Review in [place], [place] [address] [place] [address] 05/30/2023 8:00 AM CDT Telemedicine Department of Oncology in [address] [address] Mohinder Ariza M.D. [address] [place] [phone] 06/19/2023 2:00 PM CDT Appointment Department of Neurology in [address] [address] Darion Heaton M.D. [address] [place] [phone] Discharge Disposition: Home or Self Care 06/20/2023 10:00 AM CDT Comprehensive Visit Department of Neurology in [address] [address] Ej Senior M.B.B.S. [address] [place] [phone] 07/07/2023 1:15 PM CDT Clinical Communication Virtual Review in [address] [address] 07/09/2023 11:15 AM CDT Appointment Department of Radiology, [facility] in [place], [place] [address] [place] [phone] Mohinder Ariza M.D. [address] [place] [phone] 07/09/2023 4:00 PM CDT Office Visit Department of Neurology in [place], [place] [address] [place] [address] Mohinder Ariza M.D. [address] [place] [address] Medical Devices Implanted Type Area [employer] Device Identifier Shelf Expiration Date Model / Serial / Lot Ankle Implant Ankle Implant Right: Ankle Description:hardware Procedures Procedure Name Priority Date/Time Associated Diagnosis Comments OUTSIDE CT NEURO Routine 05/20/2023 3:35 PM CDT ARIA COURSE COMPLETE TREATMENT INFORMATION Routine 05/08/2023 8:51 AM CDT ARIA DAILY TREATMENT INFORMATION Routine 05/08/2023 8:51 AM CDT ARIA DAILY TREATMENT INFORMATION Routine 05/07/2023 12:21 PM CDT ARIA COURSE COMPLETE TREATMENT INFORMATION Routine 05/06/2023 5:10 PM CDT ARIA COURSE COMPLETE TREATMENT INFORMATION Routine 05/06/2023 5:09 PM CDT ARIA DAILY TREATMENT INFORMATION Routine 05/06/2023 4:36 PM CDT INITIAL RAD ONC TREATMENT PLANNING CT SIMULATION Routine 05/01/2023 8:30 AM CDT Secondary Malignant Neoplasm Brain (HCC) INTERPRETATION OF OUTSIDE MR HEAD RAD - Routine (most inpatients and all outpatients) 04/30/2023 9:50 PM CDT Secondary Malignant Neoplasm Brain (HCC) OUTSIDE MR NEURO Routine 04/29/2023 12:[address] NEURO Routine 04/29/2023 10:[address] BODY Routine 04/10/2023 7:45 AM COLLECTIONS PROFESSIONAL from Last 3 Months Results * CT HEAD/BRAIN WO CON-Outside CT Neuro (05/20/2023 3:35 PM CDT) Only the most recent of2 resultswithin the time period is included. 05/20/2023 3:32 PM CDT Narrative [facility] - 05/20/2023 4:00 PM CDT This order has been created and auto-finalized to support the import of outside images. If available, original interpretation can be found on the Media Tab in Chart Review, in Document Viewer, or as an image in QREADS. If a re-interpretation or overread is required please follow defined workflow. ?? Provider Not In System IMG CT PROCEDURES [facility] NA * Aria Course Complete Treatment Information (05/08/2023 8:51 AM CDT) Only the most recent of3 resultswithin the time period is included. Course ID [id number] sSRT BRUNO ARIA Course Start Date 4 12:50 CDT BRUNO ARIA Course End Date 4 15:24 CDT BRUNO ARIA First Treatment Date 4 16:26 CDT BRUNO ARIA Last Treatment Date 4 08:51 CDT BRUNO ARIA Treatment Elapsed Days 2 BRUNO ARIA Reference Point [id number] BRUNO ARIA Dosage Given to Date cGy 2700 BRUNO ARIA Plan ID [id number] BRUNO ARIA Fractions Treated to Date 3 BRUNO ARIA Planned Total Fractions 3 BRUNO ARIA Prescribed Dose Per Fraction 900 BRUNO ARIA Prescription Dose in cGy 2700 BRUNO ARIA Plan Primary Reference Point [id number] BRUNO ARIA 05/08/2023 8:51 AM CDT Provider Not In System RADIATION ONCOLOG Y ORDERABLES BRUNO GLADIS na * Aria Daily Treatment Information (05/08/2023 8:51 AM CDT) Only the most recent of3 resultswithin the time period is included. Course ID [id number] sSRT BRUNO ARIA Course Start Date 4 12:50 CDT BRUNO ARIA First Treatment Date 4 16:26 CDT BRUNO ARIA Last Treatment Date 4 08:51 CDT BRUNO ARIA Treatment Elapsed Days 2 BRUNO ARIA Reference Point [id number] BRUNO ARIA Dosage Given to Date cGy 2700 BRUNO ARIA Session Dosage Given 900 BRUNO ARIA Plan ID [id number] BRUNO ARIA Fractions Treated to Date 3 BRUNO ARIA Planned Total Fractions 3 BRUNO ARIA Prescribed Dose Per Fraction 900 BRUNO ARIA Prescription Dose in cGy 2700 BRUNO ARIA Plan Primary Reference Point [id number] BRUNO ARIA 05/08/2023 8:51 AM CDT Provider Not In System RADIATION ONCOLOG Y ORDERABLES DAMION GOLDSTEIN na * Initial Rad Onc Treatment Planning CT Simulation (05/01/2023 8:30 AM CDT) Narrative [facility] - 05/01/2023 8:30 AM CDT Code, Kay A, RTT ? 05/01/2023 ??9:39 AM Initial Rad Onc Treatment Planning CT Simulation Performed by: Radha Patterson M.D. Authorized by: Radha Patterson M.D. ?? Radha Patterson M.D. RADIATION ONCOLOG Y ORDERABLES DAMION GOLDSTEIN na * Interpretation of Outside MR Head (04/30/2023 9:50 PM CDT) Anatomical Region Laterality Modality Neuroradiology RST LOS, Neur oradiology ARZ LOS, Neuroradiology FLA LOS, Head, Other N/A Magnetic Resonance Impressions 05/01/2023 10:22 AM CDT Interval development of 3 and possibly 4 intracranial metastasis as detailed above. Narrative 05/01/2023 10:22 AM CDT EXAM: ??INTERPRETATION OF OUTSIDE MR HEAD COMPARISON: ??CT head 04/29/2023, MR head 01/07/2023, 09/30/2022, 06/13/2022 FINDINGS: ??Interpretation of outside MR head with and without IV contrast 04/28/2013 Interval new 8 mm peripherally enhancing lesion in the left superior posterior post central gyrus, 9 mm peripherally enhancing lesion in the right cerebellar hemisphere, and 6 mm enhancing lesion in the left medial cerebellar hemisphere. New probable subtle enhancement in the left temporal lobe (15/). Stable residual enhancement in the right lateral cerebellar hemisphere, left parietal postcentral gyrus with associated encephalomalacia, and left posterior temporal lobe. Scattered T2/flair hyperintensities compatible with chronic microvascular disease. No acute infarct. Preserved flow voids. Unchanged enlargement of the extraocular muscles. Partial opacification of bilateral mastoids. Radha Patterson M.D. [facility] [place] MRI PROCEDURE S * MR head/brain wo/w con-Outside MR Neuro (04/29/2023 12:20 PM CDT) 04/29/2023 12:1 8 PM CDT Narrative [facility] - 04/29/2023 4:05 PM CDT This order has been created and auto-finalized to support the import of outside images. If available, original interpretation can be found on the Media Tab in Chart Review, in Document Viewer, or as an image in QREADS. If a re-interpretation or overread is required please follow defined workflow. ?? Provider Not In System [facility] [place] MRI PROCEDURE S [facility] NA * CT chest abdomen pelv w con-Outside CT Body (04/10/2023 7:45 AM COLLECTIONS PROFESSIONAL) Narrative [facility] - 05/01/2023 9:10 AM CDT This order has been created and auto-finalized to support the import of outside images. If available, original interpretation can be found on the Media Tab in Chart Review, in Document Viewer, or as an image in QREADS. If a re-interpretation or overread is required please follow defined workflow. ?? Provider Not In System IMG CT PROCEDURES [facility] NA from Last 3 Months
--- OUTSIDE RECORDS SUMMARY | 2023-05-28 07:03 | XMS_ITS | Encounter Summary ---
Author Name Unknown Organization [facility] Address [address] [place] [address] Care Team Providers Care Extruding Press Operator Name Role Phone Unavailable Primary Care Provider Unavailabl e Reason for Referral * Outpatient (Routine) - Authorized Specialty Diagnoses / Procedures Referred By Contac t Referred To Contact Radiation Oncology Marnie Schultz APRN, C.N.P., D.N.P. [address] [place] [phone] [facility] Region Referral ID Status Reason Start Date Expiration Date V isits Requested Visits Authorized [id number] Authorized 05/08/2023 11/06/2024 10 10 Scheduling Instructions Phone visit on please Reason for Visit * Outpatient (Routine) - Authorized Specialty Diagnoses / Procedures Referred By Contac t Referred To Contact Radiation Oncology Marnie Schultz APRN, C.N.P., D.N.P. [address] [place] [phone] [facility] Region Referral ID Status Reason Start Date Expiration Date V isits Requested Visits Authorized [id number] Authorized 05/08/2023 11/06/2024 10 10 Encounter Details Date Type Department Care Team ([facility] st Contact Info) Description 05/09/2023 9:00 AM CDT - 05/09/2023 12:56 PM CDT Hospital Encounter Department of Radiation Oncology in [place], [place] [address] [place] [phone] Marnie Schultz APRN, C.N.P., D.N.P. [address] [place] [phone] Geraldine Chang R.N. 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 Never true 05/07/19 24 Within the past 12 months, t he [...] your living situation today? I have a [facility] place to live 05/07/2023 Sex and Gender Information Value Date Recorded Sex Assigned at Female 05/07/2023 9:41 AM CDT Gender Identity Female 05/07/2023 9:41 AM CDT Sexual Orientation Straight 05/07/2023 9: 41 AM CDT documented as of this encounter Medications at Time of Discharge Medication Sig Dispensed Refills Start Date End Date acetaminophen (TYLENOL) 500 mg tablet Twice A Day as needed 0 Advair Diskus 250-50 mcg/act diskus inhaler Inhale 1 puff 2 (two) times a day. 0 12/13/2022 amLODIPine (NORVASC) 5 mg tablet Take 5 mg by mouth daily. 0 04/18/2022 atorvastatin (LIPITOR) 20 mg tablet 20 MG ORALLY EVERY DAY AT BEDTIME 0 05/12/2022 dexAMETHasone (DECADRON) 2 mg tablet Take 1 tablet (2 mg total) by mouth 2 (two) times a day. 20 tablet 0 05/01/2023 ibuprofen (ADVIL,MOTRIN) 200 mg tablet Take 200 mg by mouth 4 (four) times a day as needed. 0 08/11/2009 levETIRAcetam (KEPPRA) 100 mg/mL solutionIndications:Seco ndary Malignant Neoplasm Brain (HCC) Take 15 mL (1,500 mg total) by mouth 2 (two) times a day. 1000 mL 10 05/08/2023 levothyroxine (SYNTHROID, LEVOTHROID) 100 mcg tablet Take 100 mcg by mouth daily. 0 04/18/2022 memantine (NAMENDA) 10 mg tablet Take 1 tablet (10 mg total) by mouth as directed. Week 1: 5 mg (1/2 tablet) in AM; Week 2: 5 mg (1/2 tablet) in AM and 5 mg in PM; Week 3: 10mg in AM and 5 mg in PM; Week 4: 10mg in AM and 10 mg in PM 35 tablet 0 06/20/2022 memantine (NAMENDA) 10 mg tablet Take 1 tablet (10 mg total) by mouth 2 (two) times a day. 60 tablet 0 10/07/2022 oxyCODONE (ROXICODONE) 5 mg immediate release tablet TAKE 1 - 2 TABLET BY ORAL ROUTE THREE TIMES DAILY NEEDED, MAX 3/DAY 0 12/14/2022 prochlorperazine (COMPAZINE) 25 mg suppository Insert 10 mg into the rectum every 12 (twelve) hours as needed for nausea or vomiting. 0 dexAMETHasone (DECADRON) 4 mg tablet Take 1 tablet (4 mg total) by mouth 2 (two) times a day. 60 tablet 0 05/08/2023 05/12/2023 documented as of this encounter Progress Notes * Geraldine Chang R.N. - 05/09/2023 9:00 AM CDT ASSESSMENT Patient reports that this morning her vision went dark and this lasted for 5 seconds and then resolved. Patient denies experiencing any other symptoms during this episode and did not loose conscious.Patient reports that she is overall feeling well with no other new symptoms or concerns. Patient states she has 6 tablets of Dexamethasone. Patient is asking for refill to be sent to [facility] in [place]. PLAN I discussed with patient that Dr. Ariza's care team will follow up with patient on May 30, 2023 to further discuss Dexamethasone taper. Patient will be receiving chemotherapy with Dr. Driver this coming Friday and will continue to follow up with Dr. Driver. We will keep Radiation Oncology follow up to an as needed basis. I will discuss refill with our care team today. Disposition/Recommendation: self-care - appropriate at this time, patient encouraged to call back with questions. Information/Education: patient/caller able to teach back. Caller agreeable to plan of care: yes. The following references were used: nursing clinical judgement. Addendum: I called patient back this afternoon. Dr. Ariza sent in refill for Dexamethasone yesterday to patient's preferred pharmacy in [place]. I provided patient with our after hours contact number. documented in this encounter Plan of Treatment Upcoming Encounters Date Type Department Care Team (Latest Contact Info) Description 05/28/2023 9:00 AM CDT Clinical Communication Virtual Review in [place], [place] 200 [place] [address] 05/30/2023 8:00 AM CDT Telemedicine Department of Oncology in [place], [place] [address] [place] [phone] Mohinder Ariza M.D. [address] [place] [phone] 06/19/2023 2:00 PM CDT Appointment Department of Neurology in [address] [phone] Darion Heaton M.D. [address] [place] [phone] Discharge Disposition: Home or Self Care 06/20/2023 10:00 AM CDT Comprehensive Visit Department of Neurology in [place], [place] [address] [place] [phone] Ej Senior M.B.B.S. [address] [place] [phone] 07/07/2023 1:15 PM CDT Clinical Communication Virtual Review in [address] [address] 07/09/2023 11:15 AM CDT Appointment Department of Radiology, [facility] in [place], [place] [address] [place] [phone] Mohinder Ariza M.D. [address] [place] [phone] 07/09/2023 4:00 PM CDT Office Visit Department of Neurology in [place], [place] [address] [place] [phone] Mohinder Ariza M.D. 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
--- OUTSIDE RECORDS SUMMARY | 2023-05-28 07:03 | XMS_ITS | Encounter Summary ---
Author Name Unknown Organization [facility] Address [address] [place] [address] Care Team Providers Care Test Engine Mechanic Name Role Phone Unavailable Primary Care Provider Unavailabl e Reason for Referral * Outpatient (Routine) - Authorized Specialty Diagnoses / Procedures Referred By Contac t Referred To Contact Diagnoses Secondary Malignant Neoplasm Brain (HCC) Seizure (HCC) Procedures EEG routine - awake and sleep Darion Heaton M.D. 200 [place] [phone] [facility] Referral ID Status Reason Start Date Expiration Date V isits Requested Visits Authorized [id number] Authorized 05/23/2023 05/22/2024 1 1 * Outpatient (Routine) - Authorized Specialty Diagnoses / Procedures Referred By Randy christiansen Referred To Contact Neurology Diagnoses Secondary Malignant Neoplasm Brain (HCC) Seizure (HCC) Darion Heaton M.D. 200 [place] [address] [facility] Referral ID Status Reason Start Date Expiration Date V isits Requested Visits Authorized [id number] Authorized 05/23/2023 11/21/2024 1 1 Encounter Details Date Type Department Care Team (Late st Contact Info) Description 05/23/2023 Orders Only Department of Neurology in [place], [place] [address] [place] [phone] Darion Heaton M.D. 200 [place] [phone] Secondary Malignant Neoplasm Brain (HCC) (Primary Dx); Seizure (HCC) Social History Tobacco Use Types Packs/Day Years Used Date Smoking Tobacco: Every Day Cigarettes 0.5 Smokeless Tobacco: Never Alcohol Use Standard Drinks/Week Comments Not Currently 0 (1 standard drink = 0.6 oz pur e alcohol) [facility] Utilities Answer Date Recorded In the past 12 months has e [employer], gas, oil, or water [employer] threatened to shut off services in your [...] your living situation today? I have a [facility] place to live 05/07/2023 Sex and Gender Information Value Date Recorded Sex Assigned at Female 05/07/2023 9:41 AM CDT Gender Identity Female 05/07/2023 9:41 AM CDT Sexual Orientation Straight 05/07/2023 9: 41 AM CDT documented as of this encounter Plan of Treatment Upcoming Encounters Date Type Department Care Team (Latest Contact Info) Description 05/28/2023 9:00 AM CDT Clinical Communication Virtual Review in [address] [address] 05/30/2023 8:00 AM CDT Telemedicine Department of Oncology in [address] [phone] Mohinder Ariza M.D. [address] [place] [phone] 06/19/2023 2:00 PM CDT Appointment Department of Neurology in [address] [phone] Darion Heaton M.D. [address] [place] [phone] Discharge Disposition: Home or Self Care 06/20/2023 10:00 AM CDT Comprehensive Visit Department of Neurology in [address] [phone] Ej Senior M.B.B.S. [address] [place] [phone] 07/07/2023 1:15 PM CDT Clinical Communication Virtual Review in [address] [address] 07/09/2023 11:15 AM CDT Appointment Department of Radiology, [facility] in [address] [phone] Mohinder Ariza M.D. [address] [place] [phone] 07/09/2023 4:00 PM CDT Office Visit Department of Neurology in [address] [place] [phone] Mohinder Ariza M.D. 200 [place] [phone] Scheduled Orders Name Type Priority Associated Diagnoses Orde r Schedule EEG routine - awake and sleep Neurology Routine Secondary Malignant Neoplasm Brain (HCC) Seizure (HCC) 1 Occurrences starting 05/23/2023 until 08/21/2024 Scheduled Referrals Name Type Priority Associated Diagnoses Orde r Schedule Neurology - Epilepsy consult (clinic) Outpatient Referral Routine Secondary Malignant Neoplasm Brain (HCC) Seizure (HCC) Expected: 05/23/2023 (Approximate), Expires: 08/21/2024 documented as of this encounter Visit Diagnoses Diagnosis Secondary Malignant Neoplasm Brain (HCC)- Primary Seizure (HCC) documented in this encounter
--- OUTSIDE RECORDS SUMMARY | 2023-05-28 07:03 | XMS_ITS | Encounter Summary ---
Author Name Unknown Organization [facility] Address [address] [place] [address] Care Team Providers Care Reporting Consultant Name Role Phone Unavailable Primary Care Provider Unavailabl e Encounter Details Date Type Department Care Team (Late st Contact Info) Description 05/22/2023 Orders Only Department of Neurology in [place], [place] [address] [place] [address] Darion Heaton M.D. [address] [place] [address] Social History Tobacco Use Types Packs/Day Years Used Date Smoking Tobacco: Every Day Cigarettes 0.5 Smokeless Tobacco: Never Alcohol Use Standard Drinks/Week Comments Not Currently 0 (1 standard drink = 0.6 oz pur e alcohol) [facility] Utilities Answer Date Recorded In the past 12 months has [facility] [employer], gas, oil, or water company threatened [...] your living situation today? I have a [facility] place to live 05/07/2023 Sex and Gender Information Value Date Recorded Sex Assigned at Female 05/07/2023 9:41 AM CDT Gender Identity Female 05/07/2023 9:41 AM CDT Sexual Orientation Straight 05/07/2023 9: 41 AM CDT documented as of this encounter Plan of Treatment Upcoming Encounters Date Type Department Care Team (Latest Contact Info) Description 05/28/2023 9:00 AM CDT Clinical Communication Virtual Review in [place], [place] 200 [place] [address] 05/30/2023 8:00 AM CDT Telemedicine Department of Oncology in [address] [phone] Mohinder Ariza M.D. [address] [place] [phone] 06/19/2023 2:00 PM CDT Appointment Department of Neurology in [address] [phone] Darion Heaton M.D. [address] [place] [phone] Discharge Disposition: Home or Self Care 06/20/2023 10:00 AM CDT Comprehensive Visit Department of Neurology in [place], [place] [address] [place] [phone] Ej Senior M.B.B.S. [address] [place] [phone] 07/07/2023 1:15 PM CDT Clinical Communication Virtual Review in [place], [place] 200 [place] [address] 07/09/2023 11:15 AM CDT Appointment Department of Radiology, [facility] in [place], [place] [address] [place] [phone] Mohinder Ariza M.D. [address] [place] [phone] 07/09/2023 4:00 PM CDT Office Visit Department of Neurology in [place], [place] [address] [place] [phone] Mohinder Ariza M.D. [address] [place] [phone] documented as of this encounter Visit Diagnoses Not on filedocumented in this encounter
--- OUTSIDE RECORDS SUMMARY | 2023-05-28 07:03 | XMS_ITS | Encounter Summary ---
Author Name Unknown Organization [facility] Address [address] [place] [address] Care Team Providers Care Inspector Automatic Typewriter Name Role Phone Unavailable Primary Care Provider Unavailabl e Encounter Details Date Type Department Care Team (Late st Contact Info) Description 05/08/2023 Documentation Department of Neurology in [place], [place] [address] [place] [phone] oMhinder Ariza M.D. [address] [place] [phone] Social History Tobacco Use Types Packs/Day Years Used Date Smoking Tobacco: Every Day Cigarettes 0.5 Smokeless Tobacco: Never Alcohol Use Standard Drinks/Week Comments Not Currently 0 (1 standard drink = 0.6 oz pur e alcohol) [facility] Utilities Answer Date Recorded In the past 12 months has [facility] [place], gas, oil, or water [employer] threatened to shut off services in your [...] your living situation today? I have a [facility] place to live 05/07/2023 Sex and Gender Information Value Date Recorded Sex Assigned at Female 05/07/2023 9:41 AM CDT Gender Identity Female 05/07/2023 9:41 AM CDT Sexual Orientation Straight 05/07/2023 9: 41 AM CDT documented as of this encounter Progress Notes * Mohinder Ariza M.D. - 05/08/2023 11:48 AM CDT Our clinic was contacted due to concern for additional seizure events that have occurred. The description of the events is similar to what was outlined during my recent telehealth visit with the patient, no new symptomatology was described. These indeed might be breakthrough seizures as patient is actively undergoing RT. For management, we made the following interventions: 1- Increase Keppra to 1500 mg BID, liquid formulation. 2- Dexamethasone 4 mg BID until end of RT and 2 additional weeks, then decrease to 2 mg BID. It is possible additional events will occur despite the above. If this happens, we'll need to add asecond agent & consider ambulatory EEG monitoring strongly to ensure these brief spells are indeed epileptic in nature as we are suspecting. documented in this encounter Plan of Treatment Upcoming Encounters Date Type Department Care Team (Latest Contact Info) Description 05/28/2023 9:00 AM CDT Clinical Communication Virtual Review in [place], [place] 200 [place] [address] 05/30/2023 8:00 AM CDT Telemedicine Department of Oncology in [place], [place] [address] [place] [phone] Mohinder Ariza M.D. [address] [place] [phone] 06/19/2023 2:00 PM CDT Appointment Department of Neurology in [address] [phone] Darion Heaton M.D. [address] [place] [phone] Discharge Disposition: Home or Self Care 06/20/2023 10:00 AM CDT Comprehensive Visit Department of Neurology in [address] [phone] Ej Senior M.B.B.S. [address] [place] [phone] 07/07/2023 1:15 PM CDT Clinical Communication Virtual Review in [address] [address] 07/09/2023 11:15 AM CDT Appointment Department of Radiology, [facility] in [place], [place] [address] [place] [phone] Mohinder Ariza M.D. [address] [place] [phone] 07/09/2023 4:00 PM CDT Office Visit Department of Neurology in [address] [phone] Mohinder Ariza M.D. [address] [place] [phone] documented as of this encounter Visit Diagnoses Not on filedocumented in this encounter
--- OUTSIDE RECORDS SUMMARY | 2023-05-28 07:03 | XMS_ITS | Encounter Summary ---
Author Name Unknown Organization [facility] Address [address] [place] [address] Care Team Providers Care Air Drill Operator Name Role Phone Unavailable Primary Care Provider Unavailabl e Reason for Referral * Outpatient (Routine) - Authorized Specialty Diagnoses / Procedures Referred By Randy christiansen Referred To Contact Neurology Mohinder Ariza M.D. [address] [place] [phone] [facility] Referral ID Status Reason Start Date Expiration Date V isits Requested Visits Authorized [id number] Authorized 05/08/2023 11/06/2024 1 1 Scheduling Instructions Please add on for me at 8 AM. Encounter Details Date Type Department Care Team (Late st Contact Info) Description 05/08/2023 Orders Only Department of Neurology in [place], [place] [address] [place] [phone] Mohinder Ariza M.D. [address] [place] [phone] Social History Tobacco Use Types Packs/Day Years Used Date Smoking Tobacco: Every Day Cigarettes 0.5 Smokeless Tobacco: Never Alcohol Use Standard Drinks/Week Comments Not Currently 0 (1 standard drink = 0.6 oz pur e alcohol) [facility] Utilities Answer Date Recorded In the past 12 months has e electric, gas, oil, or water company [...] your living situation today? I have a [facility] place to live 05/07/2023 Sex and Gender Information Value Date Recorded Sex Assigned at Female 05/07/2023 9:41 AM CDT Gender Identity Female 05/07/2023 9:41 AM CDT Sexual Orientation Straight 05/07/2023 9: 41 AM CDT documented as of this encounter Plan of Treatment Upcoming Encounters Date Type Department Care Team (Latest Contact Info) Description 05/28/2023 9:00 AM CDT Clinical Communication Virtual Review in [place], [place] 200 [place] [address] 05/30/2023 8:00 AM CDT Telemedicine Department of Oncology in [place], [place] [address] [place] [phone] Mohinder Ariza M.D. [address] [place] [phone] 06/19/2023 2:00 PM CDT Appointment Department of Neurology in [place], [place] [address] [place] [phone] Darion Heaton M.D. [address] [place] [phone] Discharge Disposition: Home or Self Care 06/20/2023 10:00 AM CDT Comprehensive Visit Department of Neurology in [place], [place] [address] [place] [phone] Ej Senior M.B.B.S. [address] [place] [phone] 07/07/2023 1:15 PM CDT Clinical Communication Virtual Review in [place], [place] 200 [place] [address] 07/09/2023 11:15 AM CDT Appointment Department of Radiology, [facility] in [place], [place] [address] [place] [phone] Mohinder Ariza M.D. [address] [place] [phone] 07/09/2023 4:00 PM CDT Office Visit Department of Neurology in [place], [place] [address] [place] [phone] Mohinder Ariza M.D. [address] [place] [phone] Scheduled Referrals Name Type Priority Associated Diagnoses Orde r Schedule Neurology office visit (clinic) Outpatient Referral Routine Expected: 05/30/2023, Expires: 08/07/2024 documented as of this encounter Visit Diagnoses Not on filedocumented in this encounter
--- OUTSIDE RECORDS SUMMARY | 2023-05-28 07:03 | XMS_ITS ---
Author Name Unknown Organization [facility] Address [address] [place] [address] Care Team Providers Care Sand Mixer Name Role Phone Unavailable Primary Care Provider Unavailabl e Active Problems Problem Noted Date Diagnosed Date Secondary Malignant Neoplasm Brain 06/20/2022 Malignant Neoplasm Of Lung Small Cell Right 05/2022 Current Oncology Plans No current plan information found. Past Plans No past plan information found. Radiation Treatments * Plan Last Treated On Elapsed Days Fractions Treated Prescribed Fraction Dose Prescribed Total Dose [id number] 05/08/2023 2 3 of 3 900 cGy 2,700 cGy [id number] 02/03/2023 13 10 of 10 300 cGy 3,000 cG y [id number] 01/27/2023 6 5 of 5 400 cGy 2,000 cG y [id number] 07/02/2022 11 10 of 10 300 cGy 3,000 cGy Reference Point Last Treated On Elapsed Days Session Dose Total Dose [id number] 05/08/2023 2 900 cGy 2,700 cGy [id number] 02/03/2023 13 300 cGy 3,000 cG y [id number] 01/27/2023 6 400 cGy 2,000 cGy [id number] 07/02/2022 11 300 cGy 3,000 cGy
--- OUTSIDE RECORDS SUMMARY | 2023-05-28 07:03 | XMS_ITS | Clinical Summary ---
Author Name Unknown Organization [facility] Address [address] [place] [address] Care Team Providers Care Night Supervisor Name Role Phone Unavailable Primary Care Provider Unavailabl e Source Comments Patient records contain information from all sites at [facility]. For routine questions regarding patient records, call [phone] during business hours, M-F 8:00 AM - 5:00 PM Central Time. Record requests for emergency care only can be directed to [phone] at any time.[facility] Allergies No known active allergies Medications Medication [...] IS HAVING TROUBLE TOLERATING PILLS. 300 mL 3 024 Discontinued(Re order) levETIRAcetam (KEPPRA) 750 mg tablet Take 1 tablet (750 mg total) by mouth 2 (two) times a day. 60 tablet 4 024 Discontinued levETIRAcetam (KEPPRA) 100 mg/mL solution Take 7.5 mL (750 mg total) by mouth 2 (two) times a day. 300 mL 4 024 Discontinued(Re order) dexAMETHasone (DECADRON) [...] (two) times a day. 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 Secondary Malignant Neoplasm Brain (HCC) (Primary Dx); Seizure (HCC) 05/22/2023 Orders Only Department of Neurology in [place], [place] [address] [place] [address] Darion Heaton M.D. 05/20/2023 Clinical Communication Department of Neurology in [place], [place] [address] [place] [phone] Lucy Bueno R.N. Update on Seizure/Episodes 05/12/2023 Refill Department of Neurology in [place], [place] [address] [place] [address] Mohinder Ariza M.D. Med Refill 05/12/2023 Orders Only Department of Neurology in [place], [place] [address] [place] [address] Mohinder Ariza M.D. 05/12/2023 Refill Department of Neurology in [place], [place] [address] [place] [phone] Mohinder Ariza M.D. Med Refill 05/09/2023 9:00 AM CDT - 05/09/2023 12:56 PM CDT Hospital Encounter Department of Radiation Oncology in [place], [place] [address] [place] [phone] Marnie Schultz APRN, C.N.P., D.N.P. Geraldine Chang, R.N. 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 Secondary Malignant Neoplasm Brain (HCC) 05/08/2023 8:05 AM CDT Hospital Encounter Department of Radiation Oncology in [address] [address] Radha Patterson M.D. 05/08/2023 Documentation Department of Radiation Oncology in [address] [address] Radha Patterson M.D. 05/08/2023 Orders Only Department of Neurology in [place], [place] [address] [place] [address] Mohinder Ariza M.D. 05/08/2023 Documentation Department of Neurology in [place], [place] [address] [place] [address] Mohinder Ariza M.D. 05/08/2023 Clinical Communication Department of Neurology in [place], [place] [address] [place] [address] Mohinder Ariza M.D. 05/07/2023 11:53 AM CDT - 05/07/2023 4:36 PM CDT Hospital Encounter Department of Radiation Oncology in [address] [address] Radha Patterson M.D. Secondary Malignant Neoplasm Brain (HCC) 05/07/2023 11:53 AM CDT Hospital Encounter Department of Radiation Oncology in [address] [address] Radha Patterson M.D. 05/06/2023 4:00 PM CDT Hospital Encounter Department of Radiation Oncology in [address] [address] Radha Patterson M.D. 05/06/2023 Refill Department of Neurology in [place], [place] [address] [place] [phone] Mohinder Ariza M.D. Med Refill 05/06/2023 Clinical Communication Department of Neurology in [place], [place] [address] [place] [phone] Mohinder Ariza M.D. Prescription change and directions 05/06/2023 Clinical Communication Department of Radiation Oncology in [address] [address] Jane Tobar P.A.-C., M.S. 05/02/2023 11:40 AM CDT Telemedicine Department of Oncology in [place], [place] [address] [place] [phone] Mohinder Ariza M.D. Secondary Malignant Neoplasm Brain (HCC) (Primary Dx); Seizure (HCC) 05/02/2023 Clinical Communication Department of Neurology in [place], [place] [address] [place] [phone] Mohinder Ariza M.D. levetiracetam 05/01/2023 8:30 AM CDT - 05/01/2023 3:46 PM CDT Hospital Encounter Department of Radiation Oncology in [address] [address] Radha Patterson M.D. Secondary Malignant Neoplasm Brain (HCC) 05/01/2023 7:41 AM CDT - 05/01/2023 8:29 AM CDT Hospital Encounter Department of Radiation Oncology in [address] [address] Radha Patterson M.D. 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 05/01/2023 Orders Only Department of Neurology in [place], [place] [address] [place] [phone] Mohinder Ariza M.D. 04/30/2023 9:50 PM CDT Ancillary Procedure Department of Radiology in [place], [place] [address] [place] [address] Radha Patterson M.D. Secondary Malignant Neoplasm Brain (HCC) 04/30/2023 Orders Only Department of Radiation Oncology in [place], [place] [address] [place] [address] Radha Patterson M.D. Secondary Malignant Neoplasm Brain (HCC) (Primary Dx) 04/29/2023 Clinical Communication Department of Radiation Oncology in [place], [place] [address] [place] [address] Jane Tobar P.A.-C., M.S. 04/29/2023 Orders Only Department of Radiation Oncology in [place], [place] [address] [place] [address] Jane Tobar P.A.-C., M.S. 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 03/31/2023 Refill Department of Neurology in [place], [place] [address] [place] [phone] Mohinder Ariza M.D. Med Refill 02/27/2023 Refill Department of Radiation Oncology in [place], [place] [address] [place] [address] Marnie Schultz APRN, C.N.P., D.N.P. Med Change Request from Last 3 Months Family History Medical History Relation Name Comments Leukemia Brother Breast cancer Paternal Grandmother Relation Name Status Comments Brother Paternal Grandmother Social History Tobacco Use Types Packs/Day Years Used Date Smoking Tobacco: Every Day Cigarettes 0.5 Smokeless Tobacco: Never Tobacco Cessation:Ready to Q uit: Not Asked; Counseling Given: Not Answered Alcohol Use Standard Drinks/Week Comments Not Currently 0 (1 standard drink = 0.6 oz pur e alcohol) [facility] Utilities Answer Date Recorded In the [...] Date Recorded Employment status Working with temporary [employer] 05/07/2023 Housing Stability Answer Date Recorded What is your living situation today? 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 [address] [place] [phone] 06/19/2023 2:00 PM CDT Appointment Department of Neurology in [address] [phone] Darion Heaton M.D. [address] [place] [phone] Discharge Disposition: Home or Self Care 06/20/2023 10:00 AM CDT Comprehensive Visit Department of Neurology in [address] [phone] Ej Senior M.B.B.S. [address] [place] [phone] 07/07/2023 1:15 PM CDT Clinical Communication Virtual Review in [address] [address] 07/09/2023 11:15 AM CDT Appointment Department of Radiology, [facility] in [place], [place] [address] [place] [phone] Mohinder Ariza M.D. [address] [place] [address] 07/09/2023 4:00 PM CDT Office Visit Department of Neurology in [place], [place] [address] [place] [address] Mohinder Ariza M.D. [address] [place] [address] Health Maintenance Due Date Last Done Comments CT Colonography 1963 Cervical Cancer Screening 1963 Cologuard 1963 Colonoscopy 1963 Colorectal Cancer Screening 1963 FIT 1963 Fasting Glucose for Diabetes Screening 1963 HIV Screening 1963 Hepatitis C Screening 1963 Lipid (Cholesterol) Screening 1963 Mammogram 1963 Thyroid Stimulating Hormone (TSH) test for thyroid function 1963 Tobacco Cessation counseling 1963 Hepatitis B Vaccines (1 of 3 - 19+ 3-dose series) 10/31/1982 Pneumococcal vaccine (0-64 years) (2 of 2 - PCV) 02/22/2011 02/22/2010 DTaP,Tdap,and Td Vaccines (2 - Td or Tdap) 06/15/2022 06/15/2012, 12/14/2003 Office Visit for Blood Pressure Check / Re-check 09/21/2022 06/21/2022 Depression Screening (Annual PHQ-2) 02/17/2023 Influenza Vaccine Completed 11/22/2022, , 02/08/2009, Additional history exists COVID-19 Vaccine Completed 11/25/2022, 07/2021, 12/28/2020, Additional history exists Zoster Vaccines Completed 12/02/2022, 05/31/2022 HPV Vaccines Aged Out No longer eligi ble based on patient's age to complete this topic Medical Devices Implanted Type Area Hopper Feeder Device Identifier Shelf Expiration Date Model / [...] OUTSIDE CT BODY Routine 04/10/2023 7:45 AM SPLITTER OPERATOR from Last 3 Months Results * CT [...] Provider Not In System IMG CT PROCEDURES IIDE NA * Aria Course Complete Treatment Information [...] Elapsed Days 2 BRUNO ARIA Reference Point [id number] BRUNO ARIA Dosage Given to Date cGy 2700 BRUNO ARIA Plan ID [id number] BRUNO ARIA Fractions Treated to Date 3 BRUNO ARIA Planned Total Fractions 3 BRUNO ARIA Prescribed Dose Per Fraction 900 BRUNO ARIA Prescription Dose in cGy 2700 BRUNO ARIA Plan Primary Reference Point [id number] BRUNO ARIA 05/08/2023 8:51 AM CDT Provider Not In System RADIATION ONCOLOG Y ORDERABLES Performing Organization Address City/[facility] Co de Phone Number BRUNO TRISTON na * Aria Daily Treatment Information (05/08/2023 8:51 AM CDT) Only the most recent of3 resultswithin the time period is included. Course ID [id number] sSRT BRUNO ARIA Course Start Date 4 12:50 CDT BRUNO ARIA First Treatment Date 4 16:26 CDT BRUNO ARIA Last Treatment Date 4 08:51 CDT BRUNO ARIA Treatment Elapsed Days 2 BRUNO ARIA Reference Point [id number] BRUNO ARIA Dosage Given to Date cGy 2700 BRUNO ARIA Session Dosage Given 900 BRUNO ARIA Plan ID [id number] BRUNO ARIA Fractions Treated to Date 3 BRUNO ARIA Planned Total Fractions 3 BRUNO ARIA Prescribed Dose Per Fraction 900 BRUNO ARIA Prescription Dose in cGy 2700 BRUNO ARIA Plan Primary Reference Point [id number] [facility] 05/08/2023 8:51 AM CDT Provider Not In System RADIATION ONCOLOG Y ORDERABLES Performing Organization Address [facility] Co de Phone Number DAMION GOLDSTEIN na * Initial Rad Onc Treatment Planning CT Simulation (05/01/2023 8:30 AM CDT) Narrative [facility] - 05/01/2023 8:30 AM CDT Code, Kay A, RTT ? 05/01/2023 ??9:39 AM Initial Rad Onc Treatment Planning CT Simulation Performed by: Radha Patterson M.D. Authorized by: Radha Patterson M.D. ?? Radha Patterson M.D. RADIATION ONCOLOG Y ORDERABLES Performing Organization Address [facility] Co de Phone Number DAMION GOLDSTEIN na * Interpretation of Outside [...] subtle enhancement in the left temporal lobe (15). Stable residual enhancement in the right lateral cerebellar hemisphere, left parietal postcentral gyrus with associated encephalomalacia, and left posterior temporal lobe. Scattered T2/flair hyperintensities compatible with chronic microvascular disease. No acute infarct. Preserved flow voids. Unchanged enlargement of the extraocular muscles. Partial opacification of bilateral mastoids. Radha Patterson M.D. IMG MRI PROCEDURE S * MR head/brain wo/w con-Outside MR Neuro (04/29/2023 12:20 PM CDT) 04/29/2023 12:1 8 PM CDT Narrative IIDE - 04/29/2023 4:05 PM CDT This order has been created and auto-finalized to support the import of outside images. If available, original interpretation can be found on the Media Tab in Chart Review, in Document Viewer, or as an image in QREADS. If a re-interpretation or overread is required please follow defined workflow. ?? Provider Not In System IMG MRI PROCEDURE S Performing Organization Address 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 If available, original interpretation can be found on the Media Tab in Chart Review, in Document Viewer, or as an image in QREADS. If a re-interpretation or overread is required please follow defined workflow. ?? Provider Not In System IMG CT PROCEDURES Performing Organization Address City/[facility] Co de Phone Number IIMS NA from Last 3 Months
--- OUTSIDE RECORDS SUMMARY | 2023-05-28 07:03 | XMS_ITS | Encounter Summary ---
Author Name Unknown Organization [facility] Address [address] [place] [address] Care Team Providers Care Disk Sharpener Name Role Phone Unavailable Primary Care Provider Unavailabl e Reason for Visit * Reason Comments Med Refill Encounter Details Date Type Department Care Team ([facility] st Contact Info) Description 05/12/2023 Refill Department of Neurology in [place], [place] [address] [place] [phone] Mohinder Ariza M.D. [address] [place] [phone] Med Refill Social History Tobacco Use Types Packs/Day Years Used Date Smoking Tobacco: Every Day Cigarettes 0.5 Smokeless Tobacco: Never Alcohol Use Standard Drinks/Week Comments Not Currently 0 (1 standard drink = 0.6 oz pur e alcohol) [facility] Utilities Answer Date Recorded In the past 12 months has [facility] [employer], gas, oil, or water [employer] threatened to shut off services in your [...] your living situation today? I have a [facility] place to live 05/07/2023 Sex and Gender Information Value Date Recorded Sex Assigned at Female 05/07/2023 9:41 AM CDT Gender Identity Female 05/07/2023 9:41 AM CDT Sexual Orientation Straight 05/07/2023 9: 41 AM CDT documented as of this encounter Plan of Treatment Upcoming Encounters Date Type Department Care Team (Latest Contact Info) Description 05/28/2023 9:00 AM CDT Clinical Communication Virtual Review in [place], [place] 200 [place] [address] 05/30/2023 8:00 AM CDT Telemedicine Department of Oncology in [place], [place] [address] [place] [phone] Mohinder Ariza M.D. [address] [place] [phone] 06/19/2023 2:00 PM CDT Appointment Department of Neurology in [address] [phone] Darion Heaton M.D. [address] [place] [phone] Discharge Disposition: Home or Self Care 06/20/2023 10:00 AM CDT Comprehensive Visit Department of Neurology in [place], [place] [address] [place] [phone] Ej Senior M.B.B.S. [address] [place] [phone] 07/07/2023 1:15 PM CDT Clinical Communication Virtual Review in [place], [place] 200 [place] [address] 07/09/2023 11:15 AM CDT Appointment Department of Radiology, [facility] in [place], [place] [address] [place] [phone] Mohinder Ariza M.D. [address] [place] [phone] 07/09/2023 4:00 PM CDT Office Visit Department of Neurology in [place], [place] [address] [place] [phone] Mohinder Ariza M.D. [address] [place] [phone] documented as of this encounter Visit Diagnoses Not on filedocumented in this encounter
--- OUTSIDE RECORDS SUMMARY | 2023-05-28 07:03 | XMS_ITS ---
Author Name Unknown Organization [facility] Address [address] [place] [address] Care Team Providers Care Messenger Copy Name Role Phone Unavailable Unavailable Unavailable Surgery Details Not on file Complications Check Surgery Details section. Procedure Estimated Blood Loss Check Surgery Details section. Procedure Findings Check Surgery Details section. Procedure Specimens Taken Check Surgery Details section.
--- OUTSIDE RECORDS SUMMARY | 2023-05-28 07:03 | XMS_ITS | Encounter Summary ---
Author Name Unknown Organization [facility] Address [address] [place] [address] Care Team Providers Care Wastewater Project Engineer Name Role Phone Unavailable Primary Care Provider Unavailabl e Encounter Details Date Type Department Care Team (Late st Contact Info) Description 05/12/2023 Orders Only Department of Neurology in [place], [place] [address] [place] [phone] Mohinder Ariza M.D. [address] [place] [address] Social History Tobacco Use Types Packs/Day Years Used Date Smoking Tobacco: Every Day Cigarettes 0.5 Smokeless Tobacco: Never Alcohol Use Standard Drinks/Week Comments Not Currently 0 (1 standard drink = 0.6 oz pur e alcohol) [facility] Utilities Answer Date Recorded In the past 12 months has [facility] [employer], gas, oil, or water [employer] threatened to shut off services in your [...] Date Recorded Employment status Working with temporary [employer] tions 05/07/2023 Housing Stability Answer Date Recorded What is your living situation today? I have a [facility] place to live 05/07/2023 Sex and Gender Information Value Date Recorded Sex Assigned at Female 05/07/2023 9:41 AM CDT Gender Identity Female 05/07/2023 9:41 AM CDT Sexual Orientation Straight 05/07/2023 9: 41 AM CDT documented as of this encounter Plan of Treatment Upcoming Encounters Date Type Department Care Team (Latest Contact Info) Description 05/28/2023 9:00 AM CDT Clinical Communication Virtual Review in [place], [place] 200 [place] [address] 05/30/2023 8:00 AM CDT Telemedicine Department of Oncology in [address] [phone] Mohinder Ariza M.D. [address] [place] [phone] 06/19/2023 2:00 PM CDT Appointment Department of Neurology in [address] [phone] Darion Heaton M.D. [address] [place] [phone] Discharge Disposition: Home or Self Care 06/20/2023 10:00 AM CDT Comprehensive Visit Department of Neurology [place] [address] [place] [phone] Ej Senior M.B.B.S. [address] [place] [phone] 07/07/2023 1:15 PM CDT Clinical Communication Virtual Review in [place], [place] [address] [place] [address] 07/09/2023 11:15 AM CDT Appointment Department of Radiology, [facility] in [place], [place] [address] [place] [phone] Mohinder Ariza M.D. [address] [place] [phone] 07/09/2023 4:00 PM CDT Office Visit Department of Neurology in [place], [place] [address] [place] [phone] Mohinder Ariza M.D. [address] [place] [phone] documented as of this encounter Visit Diagnoses Not on filedocumented in this encounter
--- OUTSIDE RECORDS SUMMARY | 2023-05-28 07:03 | XMS_ITS | Encounter Summary ---
Author Name Unknown Organization [facility] Address [address] [place] [address] Care Team Providers Care Pick Pack Worker Name Role Phone Unavailable Primary Care Provider Unavailabl e Encounter Details Date Type Department Care Team (Late st Contact Info) Description 05/08/2023 Documentation Department of Radiation Oncology in [place], [place] [address] [place] [phone] Radha Patterson M.D. [address] [place] [phone] Social History Tobacco Use Types Packs/Day Years Used Date Smoking Tobacco: Every Day Cigarettes 0.5 Smokeless Tobacco: Never Alcohol Use Standard Drinks/Week Comments Not Currently 0 (1 standard drink = 0.6 oz pur e alcohol) [place] Utilities Answer Date Recorded In the past 12 months has [facility] [employer], gas, oil, or water [employer] threatened to shut off services in your [...] your living situation today? I have a [facility] place to live 05/07/2023 Sex and Gender Information Value Date Recorded Sex Assigned at Female 05/07/2023 9:41 AM CDT Gender Identity Female 05/07/2023 9:41 AM CDT Sexual Orientation Straight 05/07/2023 9: 41 AM CDT documented as of this encounter Miscellaneous Notes * Radiation Completion Notes - Belkis Gibson R.N. - 05/08/2023 11:59 PM CDT DIAGNOSIS: 1. 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 Secondary Malignant Neoplasm Brain (HCC) Attending Physician: Radha Patterson M.D. Treatment Intent: Palliative Concomitant Therapy: None Single Plan Treatment Course: [id number] Plan ID Fractions Dose / Fraction (cGy) Dose Treated (cGy) Dose Planned (cGy) First Treatment Last Treatment Elapsed Days [id number] 900 2700 2700 05/06/2023 05/08/2023 2 Course Summary 05/06/2023 05/08/2023 2 Radiation Modality: Photons CLINICAL SUMMARY Belkis Manjarrez completed radiation treatment as planned without interruptions. The course of treatment was tolerated moderately well and with anticipated side effects. The patient experienced toxicities of grade 2 seizures during radiation treatment. TREATMENT RESPONSE: Response to treatment will be determined by post-treatment imaging and/or laboratory work. RECOMMENDED FOLLOW UP: Primary Medical Oncologist. Dr. Ariza Signed by: Belkis Gibson R.N., 05/22/2023 11:22 AM CDT [facility] [address] [place] [address] documented in this encounter Plan of Treatment Upcoming Encounters Date Type Department Care Team (Latest Contact Info) Description 05/28/2023 9:00 AM CDT Clinical Communication Virtual Review in [address] [address] 05/30/2023 8:00 AM CDT Telemedicine Department of Oncology in [address] [phone] Mohinder Ariza M.D. [address] [place] [phone] 06/19/2023 2:00 PM CDT Appointment Department of Neurology in [address] [phone] Darion Heaton M.D. [address] [place] [phone] Discharge Disposition: Home or Self Care 06/20/2023 10:00 AM CDT Comprehensive Visit Department of Neurology in [address] [phone] Ej Senior M.B.BDanielSDaniel [address] [place] [phone] 07/07/2023 1:15 PM CDT Clinical Communication Virtual Review in [address] [address] 07/09/2023 11:15 AM CDT Appointment Department of Radiology, [facility] in [place], [place] [address] [place] [phone] Mohinder Ariza M.D. [address] [place] [address] 07/09/2023 4:00 PM CDT Office Visit Department of Neurology in [place], [place] [address] [place] [address] Mohinder Ariza M.D. 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
--- OUTSIDE RECORDS SUMMARY | 2023-05-28 07:03 | XMS_ITS | Encounter Summary ---
Author Name Unknown Organization [facility] Address [address] [place] [address] Care Team Providers Care Boiler Washer Name Role Phone Unavailable Primary Care Provider Unavailabl e Reason for Visit * Reason Comments Med Refill Encounter Details Date Type Department Care Team ([facility] Contact Info) Description 05/12/2023 Refill Department of Neurology in [place], [place] [address] [place] [phone] Mohinder Ariza M.D. [address] [place] [phone] Med Refill Social History Tobacco Use Types Packs/Day Years Used Date Smoking Tobacco: Every Day Cigarettes 0.5 Smokeless Tobacco: Never Alcohol Use Standard Drinks/Week Comments Not Currently 0 (1 standard drink = 0.6 oz pur e alcohol) [facility] Utilities Answer Date Recorded In the past 12 months has [facility] [employer], gas, oil, or water [employer] threatened to shut off services in your [...] your living situation today? I have a [facility] place to live 05/07/2023 Sex and Gender Information Value Date Recorded Sex Assigned at Female 05/07/2023 9:41 AM CDT Gender Identity Female 05/07/2023 9:41 AM CDT Sexual Orientation Straight 05/07/2023 9: 41 AM CDT documented as of this encounter Plan of Treatment Upcoming Encounters Date Type Department Care Team (Latest Contact Info) Description 05/28/2023 9:00 AM CDT Clinical Communication Virtual Review in [place], [place] 200 [place] [address] 05/30/2023 8:00 AM CDT Telemedicine Department of Oncology in [place], [place] [address] [place] [phone] Mohinder Ariza M.D. [address] [place] [phone] 06/19/2023 2:00 PM CDT Appointment Department of Neurology in [address] [phone] Darion Heaton M.D. [address] [place] [phone] Discharge Disposition: Home or Self Care 06/20/2023 10:00 AM CDT Comprehensive Visit Department of Neurology in [place], [place] [address] [place] [phone] Ej Senior M.B.B.S. [address] [place] [phone] 07/07/2023 1:15 PM CDT Clinical Communication Virtual Review in [place], [place] 200 [place] [address] 07/09/2023 11:15 AM CDT Appointment Department of Radiology, [facility] in [place], [place] [address] [place] [phone] Mohinder Ariza M.D. [address] [place] [phone] 07/09/2023 4:00 PM CDT Office Visit Department of Neurology in [place], [place] [address] [place] [phone] Mohinder Ariza M.D. [address] [place] [phone] documented as of this encounter Visit Diagnoses Not on filedocumented in this encounter
--- OUTSIDE RECORDS SUMMARY | 2023-05-28 07:03 | XMS_ITS | Encounter Summary ---
Author Name Unknown Organization [facility] Address [address] [place] [address] Care Team Providers Care Telephone Messenger Name Role Phone Unavailable Primary Care Provider Unavailabl e Reason for Visit * Reason Onset Date Comments Update on Seizure/Episodes 05/20/2023 Encounter Details Date Type Department Care Team (Latest Contact Info) Description 05/20/2023 Clinical Communication Department of Neurology in [place], [place] [address] [place] [phone] Lucy Bueno, RDanielNDaniel [address] [place] [phone] Update on Seizure/Episodes Social History Tobacco Use Types Packs/Day Years Used Date Smoking Tobacco: Every Day Cigarettes 0.5 Smokeless Tobacco: Never Alcohol Use Standard Drinks/Week Comments Not Currently 0 (1 standard drink = 0.6 oz pur e alcohol) [facility] Utilities Answer Date Recorded In the past 12 months has [facility] [employer], gas, oil, or water [employer] threatened to shut off services in your [...] your living situation today? I have a [facility] place to live 05/07/2023 Sex and Gender Information Value Date Recorded Sex Assigned at Female 05/07/2023 9:41 AM CDT Gender Identity Female 05/07/2023 9:41 AM CDT Sexual Orientation Straight 05/07/2023 9: 41 AM CDT documented as of this encounter Miscellaneous Notes * Telephone Encounter - Lucy Bueno R.N. - 05/23/2023 9:58 AM CDT SUBJECTIVE CHIEF COMPLAINT / REASON FOR CALL Update on Seizure/Episodes Information Discussed I called and spoke with Mr and Mrs. Manjarrez. Dr. Heaton had reviewed the ER note and CT scan from 4/2pm. He stated; no swelling on the CT head so further steroid increase is unlikely to be of benefit.He would like her to go up on Keppra to 1750 mg twice daily. She takes the liquid formulation of Keppra so this would be 17.5 ml. She will take an additional 2.5 ml this morning. Belkis reports no episodes yesterday or today so far. I did also explain that Dr. Heaton and I reviewed Dr. Ariza's note of 05/07 in which he mentioned ordering Ambulatory EEG. Dr. Heaton stated he would prefer to place order for Epilepsy consult. He placed order. We will have this scheduled. In addition, patient explains she would not be able to do the Ambulatory EEG next week as she has appointments everyday including MRI brain on 05/27 and PET on 05/28. I will forward all of this information to Dr. Ariza for his review. He does have a Video Visit withpt on 05/29. Patient and verbalized understanding and thanked me for the call. PLAN Disposition/Recommendation: notified provider and awaiting recommendations Information/Education: patient/caller able to teach back Caller agreeable to plan of care: yes The following references were used: nursing clinical judgement, previous plan of care date: 05/[address] Ariza and recent encounters from nursing , and provider Dr. Ariza and Dr. Heaton. * Telephone Encounter - Lucy Bueno R.N. - 05/20/2023 2:32 PM CDT SUBJECTIVE CHIEF COMPLAINT / REASON FOR CALL Update on Seizure/Episodes ASSESSMENT I returned a call to and Mrs. Manjarrez. Recall Mrs. 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 at diagnosis #2 Whole brain radiotherapy, completed on July 02, 2022 #3 Chemotherapy/immunotherapy followed by maintenance immunotherapy, June through December 2022 #4 Increased right paratracheal and subcarinal lymph nodes and increased right adrenal nodule on CTscan from January 07, 2023 #5 Radiation therapy to subcarinal and paratracheal metastasis initiated on January 21, 2023; completed on February 03, 2023 #6 Radiation therapy to tumor in the right adrenal initiated on January 21, 2023; completed on February 03, 2023 #7 Multiple new intracranial metastases identified on MRI brain from May 01, 2023 #8 Stereotactic radiation therapy to the intracranial metastases initiated on May 06, 2023; anticipated date of completion is on May 08, 2023 On 05/11, after review of patient's update on her seizures/episodes, she was advised to continue theKeppra 1500 mg twice daily and increase Dexamethasone to 8 mg twice daily for 5 days and then on Saturday 05/13, decrease back to 4 mg twice daily. The plan was if she would have any additional seizures or episodes, Dr. Ariza would like her to go to the local ER to be evaluated and have a CT withoutcontrast and EEG to get clarify on what is going on. She provided the following update: 05/12: Seizure with both legs shaking lasting 30 seconds in early am . She also fell. ENT appointment to drain wax in her ear. Much drainage over 2 days. 05/13: small episode of right hand, just lasting seconds, no fall in early am. She decreased steroid in pm to 4 mg BID. 05/14 and 05/15: no episode 05/16: Small episode from butt down both knees at 7 am and 12:30 pm. 05/17: 6:40 am left leg shaking. 05/18: no episode 05/19: 7:20 am small bilateral leg shaking from butt to knees. No fall. She shares she has MRI scheduled for 05/27 and PET on 05/28 both in [place]. She has a video visitwith Dr. Ariza on 05/29. She has another appointment for wax removal from ear with local ENT on 05/28. I did review with Dr. Heaton in Dr. Ariza's absence. He agreed with the plan to have CT without contrast locally and have the images electronically pushed to us and the report faxed to [phone] Ariza. The EEG results should be faxed to us as well. No change in medication at this time. I will have Dr. Ariza's director of graduate medical education watch for the results and then review with Dr. Heaton when they arrive. We will be in contact with patient again in the morning if we do not get the information this evening. Belkis and her verbalized understanding and agreed with the plan. I will also forward to Dr. Ariza once this has all been reviewed so he is aware. PLAN Watch for ER note and results. Disposition/Recommendation: Alert Genny to watch for faxed information to be sent in and let nursing know. . Information/Education: patient/caller able to teach back. Caller agreeable to plan of care: yes. The following references were used: nursing clinical judgement, previous plan of care date: Dr. Ariza's note of 05/01, Rad onc note of 05/06, encounter from 05/11., and provider Dr Ariza and Dr. Heaton . documented in this encounter Plan of Treatment Upcoming Encounters Date Type Department Care Team (Latest Contact Info) Description 05/28/2023 9:00 AM CDT Clinical Communication Virtual Review in [place], [place] 200 [place] [address] 05/30/2023 8:00 AM CDT Telemedicine Department of Oncology in [place], [place] [address] [place] [phone] Mohinder Ariza M.D. [address] [place] [phone] 06/19/2023 2:00 PM CDT Appointment Department of Neurology in [place], [place] [address] [place] [phone] Darion Heaton M.D. [address] [place] [phone] Discharge Disposition: Home or Self Care 06/20/2023 10:00 AM CDT Comprehensive Visit Department of Neurology in [place], [place] [address] [place] [phone] Ej Senior M.B.B.S. [address] [place] [phone] 07/07/2023 1:15 PM CDT Clinical Communication Virtual Review in [place], [place] 200 [place] [address] 07/09/2023 11:15 AM CDT Appointment Department of Radiology, [facility] in [place], [place] [address] [place] [phone] Mohinder Ariza M.D. [address] [place] [phone] 07/09/2023 4:00 PM CDT Office Visit Department of Neurology in [place], [place] [address] [place] [phone] Mohinder Ariza M.D. [address] [place] [phone] documented as of this encounter Visit Diagnoses Not on filedocumented in this encounter
--- OUTSIDE RECORDS SUMMARY | 2023-05-28 07:04 | XMS_ITS | Encounter Summary ---
Author Name Unknown Organization [facility] Address [address] [place] [address] Care Team Providers Care Service Order Dispatcher Chief Name Role Phone Unavailable Primary Care Provider Unavailabl e Reason for Referral * Outpatient (Routine) - Authorized Specialty Diagnoses / Procedures Referred By Contac t Referred To Contact Radiation Oncology Marnie Schultz APRN, C.N.PDaniel, D.N.P. [address] [place] [phone] [facility] Region Referral ID Status Reason Start Date Expiration Date V isits Requested Visits Authorized [id number] Authorized 05/08/2023 11/06/2024 10 10 Scheduling Instructions Phone visit on please * Radiation Therapy (Routine) - Authorized Specialty Diagnoses / Procedures Referred By Contac t Referred To Contact Diagnoses Secondary Malignant Neoplasm Brain (HCC) Procedures Management Visit Radha Patterson M.D. [address] [place] [phone] [facility] Region Referral ID Status Reason Start Date Expiration Date V isits Requested Visits Authorized [id number] Authorized 04/29/2023 04/28/2024 10 10 Reason for Visit * Radiation Therapy (Routine) - Authorized Specialty Diagnoses / Procedures Referred By Contac t Referred To Contact Diagnoses Secondary Malignant Neoplasm Brain (HCC) Procedures Management Visit Radha Patterson M.D. 200 [place] [phone] [facility] Region Referral ID Status Reason Start Date Expiration Date V isits Requested Visits Authorized [id number] Authorized 04/29/2023 04/28/2024 10 10 Encounter Details Date Type Department Care Team (Latest Contact Info) Description 05/08/2023 9:00 AM CDT - 05/08/2023 3:06 PM CDT Hospital Encounter Department of Radiation Oncology in [place], [place] [address] [place] [phone] Angel Luis Esquivel M.D. 200 [place] [phone] Secondary Malignant Neoplasm Brain (HCC) Social History Tobacco Use Types Packs/Day Years Used Date Smoking Tobacco: Every Day Cigarettes 0.5 Smokeless Tobacco: Never Alcohol Use Standard Drinks/Week Comments Not Currently 0 (1 standard drink = 0.6 oz pur e alcohol) [facility] Utilities Answer Date Recorded In the past 12 months has [employer], gas, oil, or water [employer] threatened to shut off services in your [...] your living situation today? I have a [facility] place to live 05/07/2023 Sex and [...] as of this encounter Progress Notes * Marnie Schultz APRN, C.N.P., D.N.P. - 05/08/2023 9:00 AM CDT SUBJECTIVE REASON FOR VISIT Evaluation for side effects while receiving radiation treatment for 1. Secondary Malignant Neoplasm Brain (HCC) SUPERVISED BY: Angel Luis Esquivel M.D. ([id number]) HISTORY OF PRESENT ILLNESS Belkis Manjarrez is a 57 y.o. female with metastatic small cell lung cancer. Patient completed SRS to the lesions in the left anterior frontal today, May 07. Treatment Course: [id number] Plan ID Fractions Dose / Fraction (cGy) Dose Treated (cGy) Dose Planned (cGy) First Treatment Last Treatment Elapsed Days [id number] 05/06/2023 05/08/2023 2 Course Summary 05/06/2023 05/08/2023 2 The patient was seen and examined today with Dr. Esquivel. Around 8:25 am, while in our clinic today, the patient experienced a seizure. She was walking back to our treatment rooms and radiation therapists reported she had a blank stare suddenly and wasn't responding to them. Prior to this incidence she was talking with the therapists. After a few seconds the patient came to and stated I feel like I'm having a seizure. One therapist bear hugged her to prevent her from falling and the other therapist did an overhead page throughout the clinic asking for immediate assistance. By the time I responded, the patient was walking (with a therapist by her side guiding her), talking, but her right arm had a gentle tremor. This lasted for another 7-10 seconds in my presence, then slowly faded and her arm was still. She reports she was conscious and aware during the entire situation and she felt it start in her thighs and transition up to her right arm. The therapist feel total time of seizure was roughly 30 seconds. We sat her down on a chair to let her rest. She was conversing throughout that entire time and was able to tell us Dr. Ariza recently increased her Keppra, was alert and oriented, and wanted to proceed with treatment. After resting for5 minutes she was able to stand and walk another 7 feet to the treatment table and tolerated treatment well. OBJECTIVE There were no vitals taken for this visit. PHYSICAL EXAM General: Alert and oriented in no apparent distress. ASSESSMENT / PLAN #1 Metastatic small-cell lung cancer with multiple [...] intracranial metastases initiated on May 06, 2023; completed May 08, 2023 The patient tolerated today's radiation treatment well. She continues on 1000 mg Keppra BID and 4 mg Dex BID. I sent an urgent staff message to Dr. Ariza, Neuro Oncology, to provide an update. I alsoinformed the patients of what happened and that I reached out to Dr. Ariza in case he triesto get a hold of them. The patient's stated the seizure that happened today is much later than it has been happening over the last week. Typically it is happening in the 5-6 am hour. We discussed they should also reach out to Dr. Ariza's office as he has been managing her Keppra. We will contact the patient tomorrow to see how she's doing. Dr. Patterson will see patient in follow up in 1 week to discuss starting Dexamethasone taper. She is encouraged to contact the team with any questions or concerns. Signed by: Marnie Schultz APRN, C.N.P., D.N.P. 05/08/2023 10:04 AM CDT Associated attestation - Angel Luis Esquivel M.D. - 05/08/2023 3:06 PM CDT I saw and evaluated the patient and participated in the rincon portions of the service. I reviewed thedocumentation of Marnie Schultz C.N.P. and agree with the findings and plan. I was called to thetreatment machine after the patient had a brief episode of seizure activity as described in Ms. Schultz's note. Her thinking cleared quite quickly and she proceeded with her last treatment of stereotactic radiotherapy to her brain. She remains on Keppra 1000 mg b.i.d. and dexamethasone 4 mg b.i.d. she will follow-up with Dr. Ariza in Neuro-Oncology. A nursing staff will contact her tomorrow to check on her progress. She and her feel verbalized satisfaction with this plan. Signed by: Angel Luis Esquivel M.D. 05/08/23 3:06 PM CDT [facility] [place] documented in this encounter Plan of Treatment Upcoming Encounters Date Type Department Care Team (Latest Contact Info) Description 05/28/2023 9:00 AM CDT Clinical Communication Virtual Review in [place], [place] 200 [place] [address] 05/30/2023 8:00 AM CDT Telemedicine Department of Oncology in [address] [phone] Mohinder Ariza M.D. [address] [place] [phone] 06/19/2023 2:00 PM CDT Appointment Department of Neurology in [address] [phone] Darion Heaton M.D. [address] [place] [phone] Discharge Disposition: Home or Self Care 06/20/2023 10:00 AM CDT Comprehensive Visit Department of Neurology in [address] [phone] Ej Senior M.B.B.S. [address] [place] [phone] 07/07/2023 1:15 PM CDT Clinical Communication Virtual Review in [place], [place] 200 [place] [address] 07/09/2023 11:15 AM CDT Appointment Department of Radiology, [facility] in [address] [phone] Mohinder Ariza M.D. [address] [place] [phone] 07/09/2023 4:00 PM CDT Office Visit Department of Neurology in [address] [phone] Mohinder Ariza M.D. [address] [place] [phone] Scheduled Orders Name Type Priority Associated Diagnoses Orde r Schedule Management Visit Radiation Oncology Routine Secondary Malignant Neoplasm Brain (HCC) Once for 1 Occurrences starting 05/08/2023 until 05/08/2023 Scheduled Referrals Name Type Priority Associated Diagnoses Orde r Schedule Radiation Oncology nurse visit (clinic) Outpatient Referral Routine Expected: 05/09/2023, Expires: 08/07/2024 documented as of this encounter Visit Diagnoses Diagnosis Secondary Malignant Neoplasm Brain (HCC) documented in this encounter
--- OUTSIDE RECORDS SUMMARY | 2023-05-28 07:04 | XMS_ITS | Encounter Summary ---
Author Name Unknown Organization [facility] Address [address] [place] [address] Care Team Providers Care Bonding And Composite Fabricator Name Role Phone Unavailable Primary Care Provider Unavailabl e Reason for Visit * Radiation Therapy (Routine) - Closed Specialty Diagnoses / Procedures Referred By Contac t Referred To Contact Diagnoses Secondary Malignant Neoplasm Brain (HCC) Procedures Prior Auth Rad Tx [place] [facility] Radha Patterson M.D. [address] [place] [phone] [facility] Referral ID Status Reason Start Date Expiration Date Visits Re quested Visits Authorized [id number] Closed 04/30/2023 02/17/2024 3 3 Encounter Details Date Type Department Care Team (Late st Contact Info) Description 05/07/2023 11:53 AM CDT Hospital Encounter Department of Radiation Oncology in [place], [place] [address] [place] [phone] Radha Patterson M.D. [address] [place] [phone] Social History Tobacco Use Types Packs/Day Years Used Date Smoking Tobacco: Every Day Cigarettes 0.5 Smokeless Tobacco: Never Alcohol Use Standard Drinks/Week Comments Not Currently 0 (1 standard drink = 0.6 oz pur e alcohol) [facility] Utilities Answer Date Recorded In [...] your living situation today? I have a [facility] place to live 05/07/2023 Sex and Gender Information Value Date Recorded Sex Assigned at Female 05/07/2023 9:41 AM CDT Gender Identity Female 05/07/2023 9:41 AM CDT Sexual Orientation Straight 05/07/2023 9: 41 AM CDT documented as of this encounter Plan of Treatment Upcoming Encounters Date Type Department Care Team (Latest Contact Info) Description 05/28/2023 9:00 AM CDT Clinical Communication Virtual Review in [place], [place] 200 [place] [address] 05/30/2023 8:00 AM CDT Telemedicine Department of Oncology in [place], [place] [address] [place] [phone] Mohinder Ariza M.D. [address] [place] [phone] 06/19/2023 2:00 PM CDT Appointment Department of Neurology in [place], [place] [address] [place] [phone] Darion Heaton M.D. [address] [place] [phone] Discharge Disposition: Home or Self Care 06/20/2023 10:00 AM CDT Comprehensive Visit Department of Neurology in [place], [place] [address] [place] [phone] Ej Senior M.B.B.S. [address] [place] [phone] 07/07/2023 1:15 PM CDT Clinical Communication Virtual Review in [place], [place] 200 [place] [address] 07/09/2023 11:15 AM CDT Appointment Department of Radiology, [facility] in [place], [place] [address] [place] [phone] Mohinder Ariza M.D. [address] [place] [phone] 07/09/2023 4:00 PM CDT Office Visit Department of Neurology in [place], [place] [address] [place] [phone] Mohinder Ariza M.D. [address] [place] [phone] documented as of this encounter Visit Diagnoses Not on filedocumented in this encounter
--- OUTSIDE RECORDS SUMMARY | 2023-05-28 07:04 | XMS_ITS | Encounter Summary ---
Author Name Unknown Organization [facility] Address [address] [place] [address] Care Team Providers Care Fatback Trimmer Name Role Phone Unavailable Primary Care Provider Unavailabl e Reason for Referral * Outpatient (Routine) - Authorized Specialty Diagnoses / Procedures Referred By Contac t Referred To Contact Radiation Oncology Radha Patterson M.D. [address] [place] [phone] [facility] Region Referral ID Status Reason Start Date Expiration Date V isits Requested Visits Authorized [id number] Authorized 05/07/2023 11/05/2024 1 1 Scheduling Instructions In 1 week with YIG * Radiation Therapy (Routine) - Authorized Specialty Diagnoses / Procedures Referred By Yoletteac t Referred To Contact Diagnoses Secondary Malignant Neoplasm Brain (HCC) Procedures Management Visit Radha Patterson M.D. [address] [place] [phone] [facility] Region Referral ID Status Reason Start Date Expiration Date V isits Requested Visits Authorized [id number] Authorized 04/29/2023 04/28/2024 10 10 Reason for Visit * Radiation Therapy (Routine) - Authorized Specialty Diagnoses / Procedures Referred By Contac t Referred To Contact Diagnoses Secondary Malignant Neoplasm Brain (HCC) Procedures Management Visit Radha Patterson M.D. 200 [place] [address] [facility] Region Referral ID Status Reason Start Date Expiration Date V isits Requested Visits Authorized [id number] Authorized 04/29/2023 04/28/2024 10 10 Encounter Details Date Type Department Care Team (Latest Contact Info) Description 05/07/2023 11:53 AM CDT - 05/07/2023 4:36 PM CDT Hospital Encounter Department of Radiation Oncology in [place], [place] [address] [place] [phone] Radha Patterson M.D. 200 [place] [address] Secondary Malignant Neoplasm Brain (HCC) Social History Tobacco Use Types Packs/Day Years Used Date Smoking Tobacco: Every Day Cigarettes 0.5 Smokeless Tobacco: Never Alcohol Use Standard Drinks/Week Comments Not Currently 0 (1 standard drink = 0.6 oz pur e alcohol) [facility] Utilities Answer Date Recorded In the past 12 months has e electric, gas, oil, or water [employer] threatened to shut off services in your [...] your living situation today? I have a [facility] place to live 05/07/2023 Sex [...] times a day as needed. 0 08/11/2009 levothyroxine (SYNTHROID, LEVOTHROID) 100 mcg tablet Take [...] (two) times a day. 10 tablet 0 05/06/2023 05/08/2023 levETIRAcetam (KEPPRA) 100 mg/mL solution Take 10 mL (1,000 mg total) by mouth 2 (two) times a day. 600 mL 11 05/06/2023 05/08/2023 documented as of this encounter Progress Notes * Radha Patterson M.D. - 05/07/2023 12:45 PM CDT ATTESTATION FOR MANAGEMENT VISIT I saw and evaluated the patient and participated in the rincon portions of the service as noted below.I reviewed the documentation of Ms. Geraldine Chang RN and agree with the findings and plan. The patient appears well on exam. We will continue with radiation as planned and we anticipate that she willcomplete treatments this week. We anticipate that Belkis Manjarrez will complete radiation treatment as planned without interruptions. The course of treatment was tolerated well. She did have a strange episode this morning, but it was bilateral, not followed by a post- ictal period. We will continue to watch her for now. I would favor keeping at her steroid dosage that she is at now. I will see her back in 1 week and see about tapering next week. Follow-up will be with me in 1 week. Radha Patterson M.D., 05/07/2023 SUBJECTIVE REASON FOR VISIT Evaluation for side effects while receiving radiation treatment for 1. Secondary Malignant Neoplasm Brain (HCC) SUPERVISED BY: Radha Patterson M.D. HISTORY OF PRESENT ILLNESS Belkis Manjarrez is a 57 y.o. female with metastatic small cell lung cancer. Patient is now undergoing SRS to the lesions in the left anterior frontal. Treatment Course: [id number] Plan ID Fractions Dose / Fraction (cGy) Dose Treated (cGy) Dose Planned (cGy) First Treatment Last Treatment Elapsed Days [id number] 05/06/2023 05/07/2023 1 Course Summary 05/06/2023 05/07/2023 1 The patient was seen and examined today with Dr. Patterson. The patient reports that this morning both knees locked, she bent down to brace herself. As she bent down, she felt that her lower legs were wobbly/shaky and this symptoms all resolved after about 15seconds. Patient rates her back pain at a 3 out of 10. Patient takes 3 Oxycodone tablets a day. Patient reports that her pain medications are [facility] [place]. Patient denies heada ches, nausea, vomiting or dizziness. Patient reports that she has ear wax removal appointment this coming Friday. Vision for the past few months has not been as sharp. Patient reports some numbness and tingling to right hand. PATIENT REPORTED SYMPTOM SCREEN FATIGUE (Scale: 0 = no fatigue; 10 = worst fatigue you can imagine): 4 PAIN (Scale: 0 = no pain; 10 = worst pain you can imagine): 7 OVERALL QUALITY OF LIFE (Scale: 0 = as bad as can be; 10 = as good as can be): 8 OBJECTIVE There were no vitals taken for [...] of completion is on May 08, 2023 The patient is tolerating radiation treatment well overall. We confirmed with patient that today she is indeed taking 1000 mg of Keppra twice a day and 4 mg of Dexamethasone twice a day. If patient would to have another seizure as she did yesterday then she or her will contact Dr. Ariza's office immediately. Patient is scheduled to receive chemotherapy this coming Friday. Patient will be in communication with Dr. Driver regarding upcoming scans scheduled at [facility] since brain MR is scheduled now for July 07, 2023. Dr. Ariza will see patient in follow up on July 07, 2023. Dr. Patterson will see patient in follow up in 1 week to discuss starting Dexamethasone taper. She will contact us with any questions or concerns. We will continue with radiation treatment as planned. Signed by: Geraldine Chang R.N. 05/07/2023 2:15 PM CDT documented in this encounter Plan of Treatment Upcoming Encounters Date Type Department Care Team (Latest Contact Info) Description 05/28/2023 9:00 AM CDT Clinical Communication Virtual Review in [place], [place] 200 [place] [address] 05/30/2023 8:00 AM CDT Telemedicine Department of Oncology in [address] [phone] Mohinder Ariza M.D. [address] [place] [phone] 06/19/2023 2:00 PM CDT Appointment Department of Neurology in [address] [phone] Darion Heaton M.D. [address] [place] [phone] Discharge Disposition: Home or Self Care 06/20/2023 10:00 AM CDT Comprehensive Visit Department of Neurology in [place], [place] [address] [place] [phone] Ej Senior M.B.B.S. [address] [place] [phone] 07/07/2023 1:15 PM CDT Clinical Communication Virtual Review in [place], [place] 200 [place] [address] 07/09/2023 11:15 AM CDT Appointment Department of Radiology, [facility] in [place], [place] [address] [place] [phone] Mohinder Ariza M.D. [address] [place] [phone] 07/09/2023 4:00 PM CDT Office Visit Department of Neurology in [place], [place] [address] [place] [phone] Mohinder Ariza M.D. [address] [place] [phone] Scheduled Orders Name Type Priority Associated Diagnoses Orde r Schedule Management Visit Radiation Oncology Routine Secondary Malignant Neoplasm Brain (HCC) Once for 1 Occurrences starting 05/07/2023 until 05/07/2023 Scheduled Referrals Name Type Priority Associated Diagnoses Orde r Schedule Radiation Oncology office visit (clinic) Outpatient Referral Routine Expected: 05/14/2023 (Approximate), Expires: 05/06/2024 documented as of this encounter Visit Diagnoses Diagnosis Secondary Malignant Neoplasm Brain (HCC) documented in this encounter
--- OUTSIDE RECORDS SUMMARY | 2023-05-28 07:04 | XMS_ITS | Encounter Summary ---
Author Name Unknown Organization [facility] Address [address] [place] [address] Care Team Providers Care Second Baker Name Role Phone Unavailable Primary Care Provider Unavailabl e Encounter Details Date Type Department Care Team ( Contact Info) Description 04/30/2023 Orders Only Department of Radiation Oncology in [place], [place] [address] [place] [phone] Radha Patterson M.D. [address] [place] [phone] Secondary Malignant Neoplasm Brain (HCC) (Primary Dx) Social History Tobacco Use Types Packs/Day Years Used Date Smoking Tobacco: Every Day Cigarettes 0.5 Smokeless Tobacco: Never Alcohol Use Standard Drinks/Week Comments Not Currently 0 (1 standard drink = 0.6 oz pur e alcohol) Nutrition Answer Date Recorded Nutrition: EVOO Fat Source Unknown 06/20 Nutrition: Servings of Fruits/Vegetables per Day Not on file 06/20/2022 Dental Answer Date Recorded Dental: Regular Dentist Unknown 06/21/19 Sex and Gender Information Value Date Recorded Sex Assigned at Female 05/07/2023 9:41 AM CDT Gender Identity Female 05/07/2023 9:41 AM CDT Sexual Orientation Straight 05/07/2023 9: 41 AM CDT documented as of this encounter Plan of Treatment Upcoming Encounters Date Type Department Care Team (Latest Contact Info) Description 05/28/2023 9:00 AM CDT Clinical Communication Virtual Review in [place], [place] 200 [place] [address] 05/30/2023 8:00 AM CDT Telemedicine Department of Oncology in [place], [place] [address] [place] [phone] Mohinder Ariza M.D. [address] [place] [phone] 06/19/2023 2:00 PM CDT Appointment Department of Neurology in [address] [phone] Darion Heaton M.D. [address] [place] [phone] Discharge Disposition: Home or Self Care 06/20/2023 10:00 AM CDT Comprehensive Visit Department of Neurology in [address] [address] Ej Senior M.B.B.SDaniel [address] [place] [phone] 07/07/2023 1:15 PM CDT Clinical Communication Virtual Review in [place], [place] 200 [place] [address] 07/09/2023 11:15 AM CDT Appointment Department of Radiology, [facility] in [address] [phone] Mohinder Ariza M.D. [address] [place] [phone] 07/09/2023 4:00 PM CDT Office Visit Department of Neurology in [address] [phone] Mohinder Ariza M.D. [address] [place] [phone] documented as of this encounter Results * Interpretation of Outside MR Head (04/30/2023 [...] subtle enhancement in the left temporal lobe (15/102). Stable residual enhancement in the right lateral cerebellar hemisphere, left parietal postcentral gyrus with associated encephalomalacia, and left posterior temporal lobe. Scattered T2/flair hyperintensities compatible with chronic microvascular disease. No acute infarct. Preserved flow voids. Unchanged enlargement of the extraocular muscles. Partial opacification of bilateral mastoids. Radha EVANS MRI PROCEDURE S documented in this encounter Visit Diagnoses Diagnosis Secondary Malignant Neoplasm Brain (HCC)- Primary Secondary Malignant Neoplasm Brain (HCC) documented in this encounter
--- OUTSIDE RECORDS SUMMARY | 2023-05-28 07:04 | XMS_ITS | Encounter Summary ---
Author Name Unknown Organization [facility] Address [address] [place] [address] Care Team Providers Care Options Advisor Name Role Phone Unavailable Primary Care Provider Unavailabl e Encounter Details Date Type Department Care Team (Late st Contact Info) Description 05/06/2023 Clinical Communication Department of Radiation Oncology in [place], [place] [address] [place] [phone] Jane Tobar P.A.-C., M.S. [address] [place] [phone] Social History Tobacco Use Types Packs/Day Years Used Date Smoking Tobacco: Every Day Cigarettes 0.5 Smokeless Tobacco: Never Alcohol Use Standard Drinks/Week Comments Not Currently 0 (1 standard drink = 0.6 oz pur e alcohol) [facility] Utilities Answer Date Recorded In the past 12 months has e [employer], gas, oil, or water [employer] threatened to shut off services in your [...] your living situation today? I have a [facility] place to live 05/07/2023 Sex and Gender Information Value Date Recorded Sex Assigned at Female 05/07/2023 9:41 AM CDT Gender Identity Female 05/07/2023 9:41 AM CDT Sexual Orientation Straight 05/07/2023 9: 41 AM CDT documented as of this encounter Miscellaneous Notes * Telephone Encounter - Jane Tobar P.A.-C., M.S. - 05/06/2023 8:29 AM CDT The patient called this morning and I spoke to her directly. She reports having a seizure again this morning. She reports that the seizure was in the left leg from the knee up. She is taking dexamethasone 2 mg bid and her Keppra was increased last week to 750 mg bid. I reviewed the patient's case with Dr. Patterson. Her SRT start was planned for tomorrow, but after discussion with physics, they were able to move up her start to this afternoon. Dr. Patterson also recommended increasing her dexamethasone to 4 mg bid. I contacted the patient back with this information and she was agreeable. I will send in a new dexamethasone prescription for her today. In addition, I will reach out to Dr. Ariza again to discuss the patient's Keppra dosage. The patient will be scheduled for a management visit tomorrow with Dr. Leonardo. She will contact us sooner with questions or concerns. She verbally expressed her understanding of the plan. Jane Tobar P.A.-C., M.S. documented in this encounter Plan of Treatment Upcoming Encounters Date Type Department Care Team (Latest Contact Info) Description 05/28/2023 9:00 AM CDT Clinical Communication Virtual Review in [address] [address] 05/30/2023 8:00 AM CDT Telemedicine Department of Oncology in [address] [phone] Mohinder Ariza M.D. [address] [place] [phone] 06/19/2023 2:00 PM CDT Appointment Department of Neurology in [address] [phone] Darion Heaton M.D. [address] [place] [phone] Discharge Disposition: Home or Self Care 06/20/2023 10:00 AM CDT Comprehensive Visit Department of Neurology in [address] [phone] Ej Senior M.B.B.S. [address] [place] [phone] 07/07/2023 1:15 PM CDT Clinical Communication Virtual Review in [address] [address] 07/09/2023 11:15 AM CDT Appointment Department of Radiology, [facility] in [address] [phone] Mohinder Ariza M.D. [address] [place] [phone] 07/09/2023 4:00 PM CDT Office Visit Department of Neurology in [place], [place] [address] [place] [phone] Mohinder Ariza M.D. [address] [place] [address] documented as of this encounter Visit Diagnoses Not on filedocumented in this encounter
--- OUTSIDE RECORDS SUMMARY | 2023-05-28 07:04 | XMS_ITS | Encounter Summary ---
Author Name Unknown Organization [facility] Address [address] [place] [address] Care Team Providers Care Marketing Project Lead Name Role Phone Unavailable Primary Care Provider Unavailabl e Reason for Referral * Outpatient (Routine) - Closed Specialty Diagnoses / Procedures Referred By Randy christiansen Referred To Contact Neurology Mohinder Ariza M.D. [address] [place] [phone] [facility] Referral ID Status Reason Start Date Expiration Date Visits Re quested Visits Authorized [id number] Closed 05/01/2023 10/30/2024 1 1 Encounter Details Date Type Department Care Team (Late st Contact Info) Description 05/01/2023 Orders Only Department of Neurology in [place], [place] [address] [place] [phone] Mohinder Ariza M.D. [address] [place] [phone] Social History Tobacco Use Types Packs/Day Years [...] Date Recorded Dental: Regular Dentist Unknown 06/21/19 23 Sex and Gender Information Value Date Recorded Sex Assigned at Female 05/07/2023 9:41 AM CDT Gender Identity Female 05/07/2023 9:41 AM CDT Sexual Orientation Straight 05/07/2023 9: 41 AM CDT documented as of this encounter Plan of Treatment Upcoming Encounters Date Type Department Care Team (Latest Contact Info) Description 05/28/2023 9:00 AM CDT Clinical Communication Virtual Review in [address] [address] 05/30/2023 8:00 AM CDT Telemedicine Department of Oncology in [address] [phone] Mohinder Ariza M.D. [address] [place] [phone] 06/19/2023 2:00 PM CDT Appointment Department of Neurology in [address] [phone] Darion Heaton M.D. [address] [place] [phone] Discharge Disposition: Home or Self Care 06/20/2023 10:00 AM CDT Comprehensive Visit Department of Neurology in [address] [phone] Ej Senior M.B.B.S. [address] [place] [phone] 07/07/2023 1:15 PM CDT Clinical Communication Virtual Review in [address] [address] 07/09/2023 11:15 AM CDT Appointment Department of Radiology, [facility] in [address] [phone] Mohinder Arzia M.D. [address] [place] [phone] 07/09/2023 4:00 PM CDT Office Visit Department of Neurology in [place], [place] [address] [place] [address] Mohinder Ariza M.D. 200 [place] [address] Scheduled Referrals Name Type Priority Associated Diagnoses Orde r Schedule Neurology office visit (clinic) Outpatient Referral Routine Expected: 05/01/2023 (Approximate), Expires: 07/31/2024 documented as of this encounter Visit Diagnoses Not on filedocumented in this encounter
--- OUTSIDE RECORDS SUMMARY | 2023-05-28 07:04 | XMS_ITS | Encounter Summary ---
Author Name Unknown Organization [facility] Address [address] [place] [address] Care Team Providers Care Bulb Inspector Name Role Phone Unavailable Primary Care Provider Unavailabl e Encounter Details Date Type Department Care Team (Latest Contact Info) Description 04/30/2023 9:50 PM CDT Ancillary Procedure Department of Radiology in [place], [place] [address] [place] [phone] Radha Patterson M.D. [address] [place] [phone] Secondary Malignant Neoplasm Brain (HCC) Social History [...] AM CDT Clinical Communication Virtual Review in [place], [place] 200 [place] [address] 05/30/2023 8:00 AM CDT Telemedicine Department of Oncology in [address] [phone] Mohinder Ariza M.D. [address] [place] [phone] 06/19/2023 2:00 PM CDT Appointment Department of Neurology in [address] [phone] Darion Heaton M.D. [address] [place] [phone] Discharge Disposition: Home or Self Care 06/20/2023 10:00 AM CDT Comprehensive Visit Department of Neurology in [address] [phone] Ej Senior M.B.B.SDaniel [address] [place] [phone] 07/07/2023 1:15 PM CDT Clinical Communication Virtual Review in [address] [address] 07/09/2023 11:15 AM CDT Appointment Department of Radiology, [facility] in [address] [phone] Mohinder Ariza M.D. [address] [place] [phone] 07/09/2023 4:00 PM CDT Office Visit Department of Neurology in [address] [phone] Mohinder Ariza M.D. [address] [place] [phone] documented as of this encounter Procedures Procedure Name Priority Date/Time Associated Diagnosis Comments INTERPRETATION OF OUTSIDE MR HEAD RAD - Routine (most inpatients and all outpatients) 04/30/2023 9:50 PM CDT Secondary Malignant Neoplasm Brain (HCC) documented in this encounter Results * Interpretation of Outside [...]
--- OUTSIDE RECORDS SUMMARY | 2023-05-28 07:04 | XMS_ITS | Encounter Summary ---
Author Name Unknown Organization [facility] Address [address] [place] [address] Care Team Providers Care Vegetable Grader Name Role Phone Unavailable Primary Care Provider Unavailabl e Reason for Visit * Radiation Therapy (Routine) - Closed Specialty Diagnoses / Procedures Referred By Contac t Referred To Contact Diagnoses Secondary Malignant Neoplasm Brain (HCC) Procedures Prior Auth Rad Tx MS STEREOTACTIC BODY RADTN [facility] Radha Patterson M.D. [address] [place] [phone] [facility] Referral ID Status Reason Start Date Expiration Date Visits Re quested Visits Authorized [id number] Closed 04/30/2023 02/17/2024 3 3 Encounter Details Date Type Department Care Team (Late st Contact Info) Description 05/08/2023 8:05 AM CDT Hospital Encounter Department of Radiation Oncology in [place], [place] [address] [place] [phone] Radha Patterson M.D. [address] [place] [phone] Social History Tobacco Use Types Packs/Day Years Used Date Smoking Tobacco: Every Day Cigarettes 0.5 Smokeless Tobacco: Never Alcohol Use Standard Drinks/Week Comments Not Currently 0 (1 standard drink = 0.6 oz pur e alcohol) [facility] Utilities Answer Date Recorded In the [...] your living situation today? I have a [facility] place to live 05/07/2023 Sex and Gender Information Value Date Recorded Sex Assigned at Female 05/07/2023 9:41 AM CDT Gender Identity Female 05/07/2023 9:41 AM CDT Sexual Orientation Straight 05/07/2023 9: 41 AM CDT documented as of this encounter Plan of Treatment Upcoming Encounters Date Type Department Care Team (Latest Contact Info) Description 05/28/2023 9:00 AM CDT Clinical Communication Virtual Review in [place], [place] 200 [place] [address] 05/30/2023 8:00 AM CDT Telemedicine Department of Oncology in [place], [place] [address] [place] [phone] Mohinder Ariza M.D. [address] [place] [phone] 06/19/2023 2:00 PM CDT Appointment Department of Neurology in [place], [place] [address] [place] [phone] Darion Heaton M.D. [address] [place] [phone] Discharge Disposition: Home or Self Care 06/20/2023 10:00 AM CDT Comprehensive Visit Department of Neurology in [place], [place] [address] [place] [phone] Ej Senior M.B.B.S. [address] [place] [phone] 07/07/2023 1:15 PM CDT Clinical Communication Virtual Review in [place], [place] 200 [place] [address] 07/09/2023 11:15 AM CDT Appointment Department of Radiology, [facility] in [place], [place] [address] [place] [phone] Mohinder Ariza M.D. [address] [place] [phone] 07/09/2023 4:00 PM CDT Office Visit Department of Neurology in [place], [place] [address] [place] [phone] Mohinder Ariza M.D. [address] [place] [phone] documented as of this encounter Visit Diagnoses Not on filedocumented in this encounter
--- OUTSIDE RECORDS SUMMARY | 2023-05-28 07:04 | XMS_ITS | Encounter Summary ---
Author Name Unknown Organization [facility] Address [address] [place] [address] Care Team Providers Care Plumber Maintenance Name Role Phone Unavailable Primary Care Provider Unavailabl e Reason for Visit * Outpatient (Routine) - Closed Specialty Diagnoses / Procedures Referred By Randy christiansen Referred To Contact Neurology Mohinder Ariza M.D. [address] [place] [phone] [facility] Referral ID Status Reason Start Date Expiration Date Visits Re quested Visits Authorized [id number] Closed 05/01/2023 10/30/2024 1 1 Encounter Details Date Type Department Care Team (Late st Contact Info) Description 05/02/2023 11:40 AM CDT Telemedicine Department of Oncology in [place], [place] [address] [place] [phone] Mohinder Ariza M.D. [address] [place] [phone] Secondary Malignant Neoplasm Brain (HCC) (Primary Dx); [...] Progress Notes * Mohinder Ariza M.D. - 05/02/2023 11:40 AM CDT SUBJECTIVE CHIEF COMPLAINT / REASON FOR VISIT Belkis Manjarrez is a 57 y.o. female who presents for evaluation of brain metastases and associated suspected seizures. 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 She felt objects were heavier than previous. They diagnosed her with cervical spinal stenosis, provided her with a Medrol Dosepak, and recommended follow up with PCP for possible consideration of MRDaniel 05/09/[address] cervical spine without contrast Impression: 1. No acute osseous abnormality. Multilevel cervical spondylosis with cervical kyphotic curvature 2. Mild spinal canal stenosis at C5-6 and C6-7 3. Severe right neuroforaminal stenosis at C4-5, moderate bilateral neural foramen narrowing at C5-6, and severe bilateral neural foramen narrowing at C6-7 05/27/2022 Other Patient presented to ED at [facility] for right-sided chest pain. Recommended follow up with mill platform supervisor for bronchoscopy based on imaging. 05/27/2022 Critical Imaging Chest Xray Findings/Impression: Cardiovascular and mediastinum: Heart size and vasculature are normal in caliber and appearance. Lungs and pleural space: Small right pleural effusion with consolidation in the inferior aspect of the right hemithorax consistent with atelectasis or pneumonia. Left lung clear. Bones and soft tissues: No acute findings. CT chest with contrast Impression: Demonstration of a bulky subcarinal and right hilar mass measuring 6.7 cm in greatest dimension with encasement of the right bronchovascular structures and occlusion of the right lower lobe bronchus with dense postobstructive infiltrate and atelectasis. Moderate right-sided pleural effusion. Recommend follow-up with bronchoscopy and tissue sampling for definitive characterization of presumed bronchogenic malignancy. No evidence of pulmonary embolus. 06/13/2022 Critical Imaging MR brain head IMPRESSION: Numerous (greater than 20) heterogeneously enhancing metastatic lesions within the cerebral and cerebellar hemispheres. Dominant 3.2 cm lesion centered within the left postcentral gyrus is associatedwith moderately extensive perilesional edema and trace rightward midline shift. Several lesions demonstrate diffusion restriction as well as internal blood products. PET-CT IMPRESSION : 1. Confluent 6 x 7 cm mass in the right hilum and subcarinal region surrounding and occluding the right lower lobe bronchus concerning for malignancy. There is associated small right pleural effusionwith hypermetabolic activity. 2. Large 5 cm left lower pole hypermetabolic mass is concerning for malignancy, either additional primary or metastasis. Alternatively this may be the primary tumor with lung and mediastinal metastasis. 3. Left periaortic (1 cm) and portacaval lymph nodes concerning for metastasis. 4. Right 1 cm adrenal hypermetabolic nodule concerning for metastasis. 5. Additional exophytic masses in bilateral kidneys are indeterminate, though suspicious for additional sites of metastatic disease. 06/17/2022 Surgery and Procedures Bronchoscopy: Impression/Post-Op Diagonsis: - Sub-flavio mass. - The airway examination was significant for malignant airway obstruction of RBI and RLL. - EBUS was performed. - TBNA were performed. 06/17/2022 Biopsy/Pathology Final Diagnosis A) LYMPH NODE, STATION 7 (SUBCARINAL), MASS, ENDOBRONCHIAL ULTRASOUND-GUIDED FINE-NEEDLE ASPIRATION: 1. Positive for malignancy, metastatic small cell carcinoma 2. Lymphocytes present, consistent with lymph node sampling 06/20/[address] Tita Driver, Medical Oncology [facility]. Recommended immediate radiation referral for brain metastases. Discussed chemotherapy options once brain radiation therapy was completed. 06/21/2022 - 07/02/2022 Radiation Therapy Whole brain radiotherapy to a total dose of 3000 cGy in 10 fractions. 07/08/2022 - 09/11/2022 Chemotherapy Carboplatin and etoposide x 4 cycles. Atezolizumab was added with cycle 2. 09/30/2022 Critical Imaging MRI brain demonstrated significant interval decrease in size of the dominant lesion centered on theleft postcentral gyrus, measuring 1.0 x 1.7 cm. Significant interval decrease in size of the anterior left occipital lobe lesion, measuring 1.[address] chest abdomen pelvis demonstrated decreased right lower lobe/right posterior perihilar mass and decreased subcarinal conglomerate adenopathy. Marked improved aeration of the right lower lobe with residual areas of atelectasis. Persistent soft tissue thickening along the bronchovascular tree at the right lower lobe. Decreased adenopathy in the mediastinum and resolution of previously noted right pleural effusion. Decreased size/conspicuity of lymph nodes in the portacaval space and left periaortic space. Decreased size of a suspicious mass within the lower pole of the left kidney. Decreasedsize of suspicious right adrenal nodule. Subtle 8 mm low-density focus within the inferior liver, not definitely present on the prior exam and suspicious for metastatic focus. 10/02/2022 - Biological/Targeted/Hormone Therapy Maintenance atezolizumab initiated. 01/07/2023 Critical Imaging MRI brain demonstrated node focus of suspicious nodular or leptomeningeal enhancement. Slight further decrease in size of the residual enhancing lesions in the left postcentral gyrus measuring 1.4 x 0.9 x 1.5 cm and left occipital lobe measuring 7 mm. Similar minimal residual enhancement in the right cerebellum. CT chest, abdomen, pelvis demonstrated increased size of a subcarinal lymph node measuring 2.8 x 3.5 cm. Increased size of a right paratracheal lymph node measuring up to 3.1 cm. Decreased size of soft tissue nodular density adjacent to the right lower lobe bronchovascular bundle measuring 1.1 cm. The liver appeared similar with a subtle area of decreased attenuation within the inferior liver measuring less than 1 cm. Right adrenal nodule measuring 1.7 cm. Numerous subcentimeter retroperitoneallymph nodes, probably similar. 01/21/2023 - 02/03/2023 Radiation Therapy Radiation Therapy Treatment Details (01/21/2023 - 02/03/2023) Sites: Midline Lung, Right Adrenal gland Technique: IMRT Goal: Palliative Planned Treatment Start Date: 01/21/2023 01/21/2023 - 01/27/2023 Radiation Therapy Radiation therapy to tumor in right adrenal to a total dose of 2000 cGy in 5 fractions. 02/18/2023 - Chemotherapy Lurbinectedin 04/10/[address] chest, abdomen, pelvis demonstrated a stable right lower lobe perihilar mass measuring 1.4 x 1.0cm. Resolution of previously demonstrated mediastinal lymphadenopathy. Previously demonstrated 1.7 cm right adrenal metastasis now measured 8 mm. No new metastatic lesion evident. 04/29/2023 Critical Imaging The patient presented to the [facility] ER after experiencing a focal seizure in the rightleg. She has reported progressive weakness and numbness of her right hand. CT head demonstrated a 6 mm focus of dense blood products at the left occipital lobe corresponding to the previously noted hemorrhagic metastatic focus in this region. No significant perilesional edema. No other intracranial blood products. Encephalomalacia and gliosis at the lateral left precentral gyrus, corresponding to previously noted metastatic lesion. No evidence of new intracranial metasta ses. MRI brain demonstrated three new intracranial metastases. There was a 6 mm left superior postcentral gyrus lesion with minimal associated vasogenic edema, a 10 mm ring-enhancing lesion right superiorcerebellar hemisphere with mild associated vasogenic edema, and a 6 mm lesion left medial cerebellar hemisphere. It was reported that the lesion within the left high postcentral gyrus may contribute to the patient's symptoms. We met urgently today to discuss recent imaging and symptoms concerning for breakthrough seizures. Please see discussion below. The following portions of the patient's history were reviewed and updated as appropriate: allergies, current medications, family history, medical history, social history, surgical history, and problem list. REVIEW OF SYSTEMS Neurological: Positive for seizures, headaches and weakness in arms or legs. - Short term memory difficulty. OBJECTIVE PHYSICAL EXAM On limited examination, patient is alert and awake, able to answer questions readily. Extraocular movements were intact. Face was symmetric. No dysarthria was noted. No aphasia noted. No motor deficit evident. No incoordination evident. DATA: MRI brain 04/30/2023 progression of intracranial disease. I have reviewed the radiology report, imaging, and the extremely thorough and thoughtful interpretation Dr. Patterson and Ms. Tobar outlined regarding the imaging. ASSESSMENT / PLAN #1 Secondary Malignant Neoplasm Brain (HCC) #2 Seizure (HCC) Belkis Manjarrez is a 57 y.o. female who presents for evaluation of brain metastases and associated suspected seizures. Patient has continued excellent care under direction of my colleagues Dr. Patterson and Ms. Tobar sinceour previous visit in June 2022. Most recent MRI brain dated 04/30/2023 has identified multifocal enhancement consistent with progressive intracranial disease. In discussion today, patient very clearly articulated an episode consistent with a focal motor seizure involving the leg. More recently, she had an additional event where she had a seizure aura. Ahead of visit, we increased Keppra dose to 750 mg BID and patient started dexamethasone. Summary of Plan: - I agree entirely with plan from my colleagues to proceed with additional radiation therapy, I think this represents our best option for achieving intracranial disease control. - We increased Keppra to 750 mg BID ahead of visit. I sent a prescription for liquid preparation today as the Keppra tablets are too large for patient to swallow. This plus dexamethasone that was already started should hopefully improve our seizure control. In the event additional episodes occur, Iwould recommend increasing dose to 1000 mg BID. Patient is going to keep us informed and we can send additional prescription as needed. - We had intended on repeating MRI and conducting a visit here later in April, but this must be rescheduled. Patient will proceed with RT as planned and we will postpone the repeat MRI and visit withme accordingly. Happy to see patient sooner if needed in event of worsening symptoms/new issues. documented in this encounter Plan of Treatment Upcoming Encounters Date Type Department Care Team (Latest Contact Info) Description 05/28/2023 9:00 AM CDT Clinical Communication Virtual Review in [address] [address] 05/30/2023 8:00 AM CDT Telemedicine Department of Oncology in [address] [phone] Mohinder Ariza M.D. [address] [place] [phone] 06/19/2023 2:00 PM CDT Appointment Department of Neurology in [address] [phone] Darion Heaton M.D. [address] [place] [phone] Discharge Disposition: Home or Self Care 06/20/2023 10:00 AM CDT Comprehensive Visit Department of Neurology in [address] [phone] Ej Senior M.B.B.S. [address] [place] [phone] 07/07/2023 1:15 PM CDT Clinical Communication Virtual Review in [place], [place] 200 [place] [address] 07/09/2023 11:15 AM CDT Appointment Department of Radiology, [facility] in [place], [place] [address] [place] [phone] Mohinder Ariza M.D. [address] [place] [phone] 07/09/2023 4:00 PM CDT Office Visit Department of Neurology in [place], [place] [address] [place] [phone] Mohinder Ariza M.D. [address] [place] [phone] documented as of this encounter Visit Diagnoses Diagnosis Secondary Malignant Neoplasm Brain (HCC)- Primary Seizure (HCC) documented in this encounter
--- OUTSIDE RECORDS SUMMARY | 2023-05-28 07:04 | XMS_ITS | Encounter Summary ---
Author Name Unknown Organization [facility] Address [address] [place] [address] Care Team Providers Care Linux Server Engineer Name Role Phone Unavailable Primary Care Provider Unavailabl e Reason for Referral * Outpatient (Routine) - Closed Specialty Diagnoses / Procedures Referred By Randy christiansen Referred To Contact Radiation Oncology Jane Tobar P.A.-C., M.S. [address] [place] [phone] Radha Patterson M.D. [address] [place] [phone] Referral ID Status Reason Start Date Expiration Date Visits Re quested Visits Authorized [id number] Closed 04/29/2023 10/28/2024 1 1 Scheduling Instructions MRI brain at [facility] - ordered by ER physician; please get images and report; please wait to schedule - pending imaging review by ananya SHAH and kit on 05/01/23 Encounter Details Date Type Department Care Team (Late st Contact Info) Description 04/29/2023 Orders Only Department of Radiation Oncology in [place], [place] [address] [place] [phone] Jane Tobar P.A.-C., M.S. 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 [address] [place] [phone] 06/19/2023 2:00 PM CDT Appointment Department of Neurology in [address] [phone] Darion Heaton M.D. [address] [place] [phone] Discharge Disposition: Home or Self Care 06/20/2023 10:00 AM CDT Comprehensive Visit Department of Neurology in [address] [phone] Ej Senior M.B.B.S. [address] [place] [phone] 07/07/2023 1:15 PM CDT Clinical Communication Virtual Review in [place], [place] 200 [place] [address] 07/09/2023 11:15 AM CDT Appointment Department of Radiology, [facility] in [place], [place] [address] [place] [phone] Mohinder Ariza M.D. [address] [place] [phone] 07/09/2023 4:00 PM CDT Office Visit Department of Neurology in [address] [phone] Mohinder Ariza M.D. 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
--- OUTSIDE RECORDS SUMMARY | 2023-05-28 07:04 | XMS_ITS | Encounter Summary ---
Author Name Unknown Organization [facility] Address [address] [place] [address] Care Team Providers Care Gas Flow Regulator Name Role Phone Unavailable Primary Care Provider Unavailabl e Reason for Visit * Reason Onset Date Comments Prescription change and directions 05/06/2023 Encounter Details Date Type Department Care Team (Latest Contact Info) Description 05/06/2023 Clinical Communication Department of Neurology in [place], [place] [address] [place] [phone] Mohinder Ariza M.D. [address] [place] [phone] Prescription change and directions Social History Tobacco Use Types Packs/Day Years Used Date Smoking Tobacco: Every Day Cigarettes 0.5 Smokeless Tobacco: Never Alcohol Use Standard Drinks/Week Comments Not Currently 0 (1 standard drink = 0.6 oz pur e alcohol) [facility] Utilities Answer Date Recorded In the past 12 months has [facility] [employer], gas, oil, or water [employer] threatened to shut off services in your [...] your living situation today? I have a [facility] place to live 05/07/2023 Sex and Gender Information Value Date Recorded Sex Assigned at Female 05/07/2023 9:41 AM CDT Gender Identity Female 05/07/2023 9:41 AM CDT Sexual Orientation Straight 05/07/2023 9: 41 AM CDT documented as of this encounter Miscellaneous Notes * Telephone Encounter - Lucy Bueno RDanielNDaniel - 05/06/2023 10:07 AM CDT SUBJECTIVE CHIEF COMPLAINT / REASON FOR CALL Prescription change and directions ASSESSMENT I spoke with Ms. Manjarrez this morning. I shared that Jane from Radiation oncology had reached out to Dr. Ariza and informed him that she had a seizure this morning. She explained that at 6:30 this morning, she experienced a 10-20 second seizure of her left knee traveling up her left thigh. It was very intense, causing her to fall. She did scratch herself but no injury. She tells me this is the first time she has had a seizure on the left side. Typically it is in her right hand or right leg. Sheshares that this causes her much anxiety. Per Dr. Ariza, I instructed her to increase her Keppra to 1000 mg twice daily. She does take the liquid form. She will take an additional 2.5 ml to equal 1000 mg this morning and starting gerald hennessy take 10 ml and then twice daily moving forward. She will call and let us know if she has any breakthrough seizures. I explained that if she would have additional seizure on the 1000 mg twice daily after five days, Dr. Ariza would then like to increase to 1250 mg twice daily and then we would go up to 1500 mg BID. If she cannot tolerate these doses of Keppra or it proves insufficient, we can start a second anticonvulsant. I also called her pharmacy to let them know that a new prescription will be sent to them today. This is to replace the 750 mg BID script that they have filed. Patient will continue with radiation and has also increased Dexamethasone to 4 mg daily. She will call with any questions or concerns. I provided our number. She thanked me for the call. PLAN We will call patient on Thursday 05/11 for an update. Disposition/Recommendation: See plan above . Information/Education: patient/caller able to teach back. Caller agreeable to plan of care: yes. The following references were used: nursing clinical judgement and provider Dr. Ariza and his note of 05/02/23 . documented in this encounter Plan of Treatment Upcoming Encounters Date Type Department Care Team (Latest Contact Info) Description 05/28/2023 9:00 AM CDT Clinical Communication Virtual Review in [address] [address] 05/30/2023 8:00 AM CDT Telemedicine Department of Oncology in [address] [phone] Mohinder Ariza M.D. [address] [place] [phone] 06/19/2023 2:00 PM CDT Appointment Department of Neurology in [address] [phone] Darion Heaton M.D. [address] [place] [phone] Discharge Disposition: Home or Self Care 06/20/2023 10:00 AM CDT Comprehensive Visit Department of Neurology in [place], [place] [address] [place] [phone] Ej Senior M.B.B.S. [address] [place] [phone] 07/07/2023 1:15 PM CDT Clinical Communication Virtual Review in [place], [place] 200 [place] [address] 07/09/2023 11:15 AM CDT Appointment Department of Radiology, [facility] in [place], [place] [address] [place] [phone] Mohinder Ariza M.D. [address] [place] [phone] 07/09/2023 4:00 PM CDT Office Visit Department of Neurology in [place], [place] [address] [place] [phone] Mohinder Ariza M.D. [address] [place] [phone] documented as of this encounter Visit Diagnoses Not on filedocumented in this encounter
--- OUTSIDE RECORDS SUMMARY | 2023-05-28 07:04 | XMS_ITS | Encounter Summary ---
Author Name Unknown Organization [facility] Address [address] [place] [address] Care Team Providers Care Rn Prior Authorization Name Role Phone Unavailable Primary Care Provider Unavailabl e Reason for Visit * Reason Comments Med Refill Encounter Details Date Type Department Care Team ([facility] st Contact Info) Description 05/06/2023 Refill Department of Neurology in [place], [place] [address] [place] [place] [phone] Mohinder Ariza M.D. [address] [place] [phone] Med Refill Social History Tobacco Use Types Packs/Day Years Used Date Smoking Tobacco: Every Day Cigarettes 0.5 Smokeless Tobacco: Never Alcohol Use Standard Drinks/Week Comments Not Currently 0 (1 standard drink = 0.6 oz pur e alcohol) [facility] Utilities Answer Date Recorded In the past 12 months has [facility] [employer], gas, oil, or water [employer] threatened to shut off services in your [...] your living situation today? I have a [facility] place to live 05/07/2023 Sex and Gender Information Value Date Recorded Sex Assigned at Female 05/07/2023 9:41 AM CDT Gender Identity Female 05/07/2023 9:41 AM CDT Sexual Orientation Straight 05/07/2023 9: 41 AM CDT documented as of this encounter Plan of Treatment Upcoming Encounters Date Type Department Care Team (Latest Contact Info) Description 05/28/2023 9:00 AM CDT Clinical Communication Virtual Review in [place], [place] 200 [place] [address] 05/30/2023 8:00 AM CDT Telemedicine Department of Oncology in [place], [place] [address] [place] [phone] Mohinder Ariza M.D. [address] [place] [phone] 06/19/2023 2:00 PM CDT Appointment Department of Neurology in [address] [phone] Darion Heaton M.D. [address] [place] [phone] Discharge Disposition: Home or Self Care 06/20/2023 10:00 AM CDT Comprehensive Visit Department of Neurology in [place], [place] [address] [place] [phone] Ej Senior M.B.B.S. [address] [place] [phone] 07/07/2023 1:15 PM CDT Clinical Communication Virtual Review in [place], [place] 200 [place] [address] 07/09/2023 11:15 AM CDT Appointment Department of Radiology, [facility] in [place], [place] [address] [place] [place] [phone] Mohinder Ariza M.D. [address] [place] [phone] 07/09/2023 4:00 PM CDT Office Visit Department of Neurology in [place], [place] [address] [place] [place] [phone] Mohinder Ariza M.D. [address] [place] [phone] documented as of this encounter Visit Diagnoses Not on filedocumented in this encounter
--- OUTSIDE RECORDS SUMMARY | 2023-05-28 07:04 | XMS_ITS | Encounter Summary ---
Author Name Unknown Organization [facility] Address [address] [place] [address] Care Team Providers Care Admissions Manager Name Role Phone Unavailable Primary Care Provider Unavailabl e Reason for Referral * Outpatient (Routine) - Closed Specialty Diagnoses / Procedures Referred By Randy christiansen Referred To Contact Radiation Oncology Jane Tobar P.A.-C., M.SDaniel [address] [place] [phone] Radha Patterson M.D. [address] [place] [phone] Referral ID Status Reason Start Date Expiration Date Visits Re quested Visits Authorized [id number] Closed 04/29/2023 10/28/2024 1 1 Scheduling Instructions MRI brain at [facility] - ordered by ER physician; please get images and report; please wait to schedule - pending imaging review by ananya SHAH and kit on 05/01/23 Reason for Visit * Outpatient (Routine) - Closed Specialty Diagnoses / Procedures Referred By Contac t Referred To Contact Radiation Oncology Jane Tobar P.A.-C., M.SDaniel [address] [place] [phone] Radha Patterson M.D. [address] [place] [phone] Referral ID Status Reason Start Date Expiration Date Visits Re quested Visits Authorized [id number] Closed 04/29/2023 10/28/2024 1 1 Encounter Details Date Type Department Care Team (Latest Contact Info) Description 05/01/2023 7:41 AM CDT - 05/01/2023 8:29 AM CDT Hospital Encounter Department of Radiation Oncology in [place], [place] [address] [place] [address] Radha Patterson M.D. [address] [place] [phone] Malignant Neoplasm Of Lung Small Cell Right [...] AM CDT documented as of this encounter Last Filed Vital Signs Vital Sign Reading Time Taken Comments Blood Pressure 121/41 05/01/2023 7:54 AM CDT Pulse 65 05/01/2023 7:54 AM CDT Temperature - - Respiratory Rate - - Oxygen Saturation - - Inhaled Oxygen Concentration - - Weight 64.9 kg (143 lb 1.3 oz) 05/01/2023 7:54 A M CDT Height - - Body Mass Index 22.46 06/21/2022 8:47 AM CDT documented in this encounter Medications at Time of Discharge [...] ORALLY EVERY DAY AT BEDTIME 0 05/12/2022 ibuprofen (ADVIL,MOTRIN) 200 mg tablet Take 200 [...] as needed for nausea or vomiting. 0 clonazePAM (KlonoPIN) 0.5 mg disintegrating tablet Dissolve 1 tablet (0.5 mg total) in the mouth 2 (two) times a day as needed for seizures (Please take for seizure lasting greater than 1 minute). 30 tablet 0 06/21/2022 05/02/2023 HYDROcodone-acetaminoph en (NORCO) 5-325 mg per tablet TAKE 1 TABLET BY ORAL ROUTE EVERY 8-12 HOURS NEEDED FOR CHRONIC PAIN MAX 3/DAY 0 06/17/2022 05/02/2023 levETIRAcetam (KEPPRA) 100 mg/mL solution TAKE 5 ML BY MOUTH 2 TIMES A DAY. SENT ALTERNATIVE PATIENT IS HAVING TROUBLE TOLERATING PILLS. 300 mL 11 07/16/2022 05/02/2023 levETIRAcetam (KEPPRA) 500 mg tablet Take 1 tablet (500 mg total) by mouth 2 (two) times a day. 180 tablet 3 06/21/2022 05/02/2023 memantine (NAMENDA) 10 mg tablet Take 10 mg by mouth 2 (two) times a day. 0 05/02/2023 documented as of this encounter Progress Notes * Jane Tobar P.A.-C., M.S. - 05/01/2023 8:00 AM CDT SUBJECTIVE DIAGNOSIS 1. 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 Secondary Malignant Neoplasm Brain (HCC) SUPERVISED BY: Radha Patterson M.D. HISTORY OF PRESENT ILLNESS Belkis Manjarrez is a 57-year-old female with metastatic small cell lung cancer. Her oncologic history is as follows: Oncology History Malignant Neoplasm Of Lung Small [...] up with PCP for possible consideration of 05/09/[address] cervical spine without contrast Impression: 1. No acute osseous abnormality. Multilevel cervical spondylosis with cervical kyphotic curvature 2. Mild spinal canal stenosis at C5-6 and C6-7 3. Severe right neuroforaminal stenosis at C4-5, moderate bilateral neural foramen narrowing at C5-6, and severe bilateral neural foramen narrowing at C6-7 05/27/2022 Other Patient presented to ED at [facility] for right-sided chest pain. Recommended follow up with assistant press operator offset for bronchoscopy based on imaging. 05/27/2022 Critical [...] Evaluated by Dr. Tita Driver, Medical Oncology [facility]. Recommended immediate radiation referral for brain [...] Critical Imaging The patient presented to the [facility] ER after experiencing a focal seizure [...] gyrus may contribute to the patient's symptoms. INTERVAL HISTORY: The patient was seen and examined today with Dr. Patterson. The patient reports doing well overall. She rates her fatigue as 5-6/10 in severity. She reports that on Friday when she stood up her vision went black and she then experienced a seizure in her rightleg. She was close to the chair, but was unable to fully support herself and she did fall. She denies any injuries from the fall. She estimates that the seizure lasted 15-30 seconds. She has not experienced other seizures since Friday. She does report progressive decreased function of her right hand since her initial diagnosis last year. She is continuing to take Keppra 500 mg BID. She denies concerning headaches. She does report increased blurry vision in the eyes bilaterally. She denies double vision. She also reports a progressive worsening of hearing. She reports increased forgetfulness and occasional trouble with articulation. She reports decreased appetite and weight loss. She is trying to increase her caloric and protein intake. She denies nausea or vomiting. She denies bowel or bladder incontinence. Besides her right hand, she denies other areas of weakness, numbness, or tingling. She reports good breathing. She has noticed increased fatigue and anxiety since starting the new systemic treatment in February. She states that she was not started on dexamethasone when she presented to the ER this week. REVIEW OF SYSTEMS Review of systems was negative except as documented above. PATIENT REPORTED SYMPTOM SCREEN: FATIGUE (Scale: 0 = no fatigue; 10 = worst fatigue you can imagine): 5-6 PAIN (Scale: 0 = no pain; 10 = worst pain you can imagine): 4 OVERALL QUALITY OF LIFE (Scale: 0 = as bad as can be; 10 = as good as can be): 9 OBJECTIVE BP (!) 121/41 (BP Location: Right arm, Patient Position: Sitting, Cuff Size: Regular) Pulse 65 Wt 64.9 kg BMI 22.46 kg/m?? PHYSICAL EXAMINATION General: Patient is alert and oriented and in no apparent distress. The patient is here today with her . Heart: Regular rate and rhythm. Lungs: Clear to auscultation bilaterally. Neuro: CN II-XII grossly intact bilaterally. Sensation to light touch intact. Strength of the upperand lower extremities is normal bilaterally. Slight delay of movement/response with the right hand.Patient was able to complete rutvkp-rc-dbue, turf-zm-pqil, and rapid alternating movements, but didneed qobo-ir-zxtu instructions for pblgav-lq-khdy. Recall 3/3 words. Gait is normal. ASSESSMENT / PLAN #1 Metastatic small-cell lung [...] on MRI brain from May 01, 2023 The patient was seen today after she presented to the ER earlier this week following experiencing aseizure of the right leg. MRI of the brain was performed and demonstrated multiple new intracranialmetastases. Dr. Patterson' review of the MRI scan revealed at least seven brain lesions. [facility] also [facility]. We discussed the risks, benefits, and alternatives of radiotherapy in this setting. Dr. Patterson offered stereotactic radiation therapy to the intracranial metastases in 3 fractions. I discussed the logistics as well as the acute and chronic side effects of treatment in detail. The acute side effectsare common and include, but are not limited to, hair loss, scalp irritation, fatigue, and if there is swelling of the brain there could be new or worsening seizures, nausea/vomiting, and headaches. Long-term side effects could include, but are not limited to, prolonged hair loss, hearing loss, vision changes/loss, short term memory deficits, changes in cognition, pituitary hormone deficiencies, ra diation necrosis, and secondary malignancy. We discussed the risks of re- irradiation. The patient was provided with a written summary of recommendations. Her questions were answered to her verbalizedsatisfaction. The patient was not initiated on dexamethasone while in the ER. Dr. Patterson recommends initiating dexamethasone 2 mg BID and a prescription will be sent to the patient's pharmacy. The patient continues to take Keppra 500 mg BID. I did send communication to Dr. Ariza regarding the patient's recent symptoms and imaging findings and will await his response regarding recommendations for Keppra. I offered a social work referral for the patient, but she declined at this time. In addition, we discussed assistive devices for ambulation, but she declined the need for any at this time. After discussion, the patient verbally stated that she would like to proceed with radiation treatment. She signed consent. She is scheduled for CT simulation today. Dr. Patterson also met with the patient today, please see her attestation for details. The patient was provided with our contact information. She will contact us with questions or concerns. She verbally expressed her understanding of theplan. EDUCATION: Ready to learn, no apparent learning barriers were identified; learning preferences include listening. Explained diagnosis and treatment plan; patient expressed understanding of the content. CONSENT: Discussed the risks, benefits, alternatives, and the necessity of other members of the healthcare team participating in the procedure. All questions answered and consent given. I personally spent 45 minutes in care of the patient today. Time includes both non face to face andface to face patient care. Signed by: Jane Tobar P.A.-C., M.S. 05/01/2023 1:10 PM CDT [facility] [address] [place] [address] ADDENDUM: I received a reply from Dr. Ariza. He is prescribing Keppra 750 mg BID for the patient that she can start immediately. He also ordered for a video return visit with him that is scheduled for tomorrow. I did call the patient and share this information with her. Associated attestation - Radha Patterson M.D. - 05/01/2023 3:44 PM CDT RADIATION ONCOLOGY CONSULT I saw and evaluated the patient and participated in the rincon portions of the service. I reviewed thedocumentation of Ms. Jane Tobar PA-C, and agree with the findings and plan. Please see Ms. Tobar's detailed note for the patient's initial presentation and work-up. Briefly, Ms. Manjarrez is a very pleasant 57 year old current smoker who is well known to me from her two last courses of radiation (brain & right adrenal gland and mediastinum). She was diagnosed extensive stage small cell lung cancer in June of 2022. She was initially treated with hippocampal avoidant wholebrain radiation therapy in June of 2022 and then received Carbo/etoposide and Atezolizumab for 4 cycles. Maintenance atezolizumab was started in September of 2022. Her brain has responded well initially but now presents with progressive disease in the brain. I count at least 8 lesions in the brain on her recent MRI (Left anterior frontal, L posterior frontal, L parietal, L occipital, R superior cerebellar, L posterior cerebellar and R lateral cerebellar, left temporal (Se 15, Images 37, 38, 45, 103, 110, 125, 125, 102 respectively). I am not sure if there is a tiny left parietal calvarial lesion on Se 15, Images 36-39. I will get this over read by our radiologists. I have independently reviewedher imaging, operative and pathology reports. On exam, she appears well. Detailed neuro exam as per Ms. Tobar. We discussed the findings as outlined above and below in this note. We discussed the treatment alternatives including supportive care vs SRS to the 8 lesions. I will get an over-read on her MRI. I will follow the calvarial lesion and the subtle area of enhancement on the left temporal lobe (noted on the over-read). We discussed the rationale, risks, side effects and goals of radiation therapy. 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 They understood andtheir questions were answered. She wished to proceed with treatment. We tentatively plan on delivering 2700 cGy in 3 daily fractions starting Friday, May 07, 2023. If we have things ready for Friday we will call her. We started her on steroids and we also did reach out to Dr. Ariza about whether or not she should increase her Keppra dosage. He kindly told us to increase and he will do a video visit with her tomorrow. ADDENDUM: Later, I reviewed our outside report review on her MRI imaging. I now understand why theyare saying 3-4 new lesions as they are comparing to the last study. These lesions were on her initial scan from May 2022. My plan will be to treat all of the lesions I can see as I am concerned that she will eventually progress in these areas and they are all small and treatable. Ms. Tobar will call and explain this to her. My thanks to Neisha Hurts and Bassem for the opportunity to participate in this patient'scare. EDUCATION Ready to learn, no apparent learning barriers were identified; learning preferences include listening. Explained diagnosis and treatment plan; patient expressed understanding of the content. CONSENT Discussed the risks, benefits, alternatives, and the necessity of other members of the healthcare team participating in the procedure. All questions answered and consent given. DIAGNOSIS #1 Metastatic small-cell lung cancer with multiple [...] on MRI brain from May 01, 2023 Signed by: Radha Patterson M.D., 05/01/2023 documented in this encounter Plan of Treatment Upcoming Encounters Date Type Department Care Team (Latest Contact Info) Description 05/28/2023 9:00 AM CDT Clinical Communication Virtual Review in [place], [place] [address] [place] [address] 05/30/2023 8:00 AM CDT Telemedicine Department of Oncology in [address] [phone] Mohinder Ariza M.D. [address] [place] [phone] 06/19/2023 2:00 PM CDT Appointment Department of Neurology in [address] [phone] Darion Heaton M.D. [address] [place] [phone] Discharge Disposition: Home or Self Care 06/20/2023 10:00 AM CDT Comprehensive Visit Department of Neurology in [address] [phone] Ej Senior M.B.B.S. [address] [place] [phone] 07/07/2023 1:15 PM CDT Clinical Communication Virtual Review in [address] [address] 07/09/2023 11:15 AM CDT Appointment Department of Radiology, [facility] in [address] [phone] Mohinder Ariza M.D. [address] [place] [phone] 07/09/2023 4:00 PM CDT Office Visit Department of Neurology in [place], [place] [address] [place] [address] Mohinder Ariza M.D. [address] [place] [address] Scheduled Referrals Name Type Priority Associated Diagnoses Order Schedule Radiation Oncology office visit (clinic) Outpatient Referral Routine Once for 1 Occurrences starting 05/01/2023 until 05/01/2023 documented as of this encounter Visit Diagnoses Diagnosis 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
--- OUTSIDE RECORDS SUMMARY | 2023-05-28 07:04 | XMS_ITS | Encounter Summary ---
Author Name Unknown Organization [facility] Address [address] [place] [address] Care Team Providers Care 3Rd Mate Name Role Phone Unavailable Primary Care Provider Unavailabl e Encounter Details Date Type Department Care Team ([facility] st Contact Info) Description 05/08/2023 Clinical Communication Department of Neurology in [place], [place] [address] [place] [phone] Mohinder Ariza M.D. [address] [place] [phone] Social History Tobacco Use Types Packs/Day Years Used Date Smoking Tobacco: Every Day Cigarettes 0.5 Smokeless Tobacco: Never Alcohol Use Standard Drinks/Week Comments Not Currently 0 (1 standard drink = 0.6 oz pur e alcohol) [facility] Utilities Answer Date Recorded In the past 12 months has [facility] [employer], gas, oil, or water [employer] threatened to shut off services in your [...] your living situation today? I have a [facility] place to live 05/07/2023 Sex and Gender Information Value Date Recorded Sex Assigned at Female 05/07/2023 9:41 AM CDT Gender Identity Female 05/07/2023 9:41 AM CDT Sexual Orientation Straight 05/07/2023 9: 41 AM CDT documented as of this encounter Miscellaneous Notes * Telephone Encounter - Lucy Bueno R.N. - 05/12/2023 10:07 AM CDT SUBJECTIVE CHIEF COMPLAINT / REASON FOR CALL Seizure update after increasing Keppra Dose on 05/07. Information Discussed I was able to speak with Ms. Manjarrez this morning. She increased her Keppra to 1500 mg twice daily on 05/07 and increased Dexamethasone to 4 mg twice daily on 05/07 as well (She is waiting to here if her local pharmacy will receive the supply of Dexamethasone today. If not, we will need to send a newprescription to a different pharmacy.). She reports the following events: 05/09: At 7:05 she had the same focal seizure she experienced on in the Radiation Department. Both of her legs shook and her arms also shook at that time. She does remember falling and her picked up her. It was short lasting only 20-30 seconds. She is not sure if she lost consciousness or not, but she remembers falling and her picking her up. 05/10: She had the following episode. She is not sure it is a seizure. She felt dark in her eyes. She did not loose vision, everything was just dark. This lasted about 5-10 seconds. She stoppedand did not move and then she returned to baseline. She tells me this has happened 2-3 times the past couple of weeks. She does make sure she gets up slow and stands still to make sure she is okay. She is also having trouble with her ears. About one year ago she lost hearing during her chemo/radiation. She had a lot of wax removed and tubes places. The past 1-2 months, she feels like she is losing her hearing again. She went to see if she could be fitted for hearing aids, but was told she wasfull of wax and they could not see anything in her ear. She does have an ENT appointment Friday 05/12. I will forward her update to Dr. Ariza. Patient will also call me after she checks with her pharmacy later this morning/early afternoon in regards to the Dexamethasone status. She thanked me for calling her. I will let her know if Dr. Ariza has any other comments. PLAN Disposition/Recommendation: notified provider and awaiting recommendations Information/Education: patient/caller able to teach back Caller agreeable to plan of care: yes The following references were used: nursing clinical judgement, previous plan of care date: Communication messages, and provider Dr. Ariza. Addendum: Per Dr. Ariza, I called Ms Manjarrez and relayed the following: Let's give her dex 8 mg BID for 5 days and then reduce to 4 mg BID. Please be sure she gets a CBC and CMP, make sure there are no major issues with electrolytes of counts. If blood work is fine and she keeps having issues despite this, she really should go to local ED and get assessed. I'd want a CT head without contrast and an EEG to make sure we get clarity on what is going on here. I would like to avoid a second anticonvulsant. Do provide some reassurance to the patient please, while difficult to treat and very unpleasant, focal seizures are not dangerous in the same way generalized seizures are. We do expect her to stabilize after she is done with RT. Mrs. Manjarrez verbalized understanding. She shared she had all her blood work done Monday 05/08 at [facility] and the records should be at the [facility]. We will call and request the labs. I did call the [facility] who stated they will not know until later this afternoon if they will have the Dexamethasone today. Patient asked me to call the [facility]. I will update her once we have found records and a pharmacy. She thanked me for the assistance. * Telephone Encounter - Karla Salas M.S.N., Fuad, Chyna - 05/08/2023 11:23 AM CDT SUBJECTIVE CHIEF COMPLAINT / REASON FOR CALL No chief complaint on file. Information Discussed Patient was contacted regarding Dr. Ariza's message: Can we reach out to the patient and instruct her to go ahead and increase her Keppra to 1500 mg BID? It seems like this is going to be an active time for her. We may yet see even more seizures and need a second agent. Let's also please increase dexamethasone to 4 mg BID. She should stay on this dose until end of RT and 2 weeks later, we can then attempt return to 2 mg BID. Hopefully things will cool off once we complete RT and she has a little time to recover, but sometimes these focal events get very tough to treat. If she keeps experiencing minor episodes, we may also need ambulatory EEG tomake sure these are actually epileptic as we are assuming, but we'll cross that bridge once we try the aforementioned interventions. Patient was appreciative of the call and for checking in. She would like an updated prescription for Keppra sent to her [facility] pharmacy. Patient's states that the went to pharmacy yesterday and the oral pills were still profiled. She has already taken her morning dose of Keppra and will start the increase dose tonight. Patient has already started taking dexamethasone 4 mg BID. PLAN Will pend updated Rx to provider. Can follow-up with patient on 05/11. Instructed her to call back sooner if she has any issues. Disposition/Recommendation: recommended continue engagement in self-management activities Information/Education: patient/caller able to teach back Caller agreeable to plan of care: yes The following references were used: nursing clinical judgement documented in this encounter Plan of Treatment Upcoming Encounters Date Type Department Care Team (Latest Contact Info) Description 05/28/2023 9:00 AM CDT Clinical Communication Virtual Review in [address] [address] 05/30/2023 8:00 AM CDT Telemedicine Department of Oncology in [address] [phone] Mohinder Ariza M.D. [address] [place] [phone] 06/19/2023 2:00 PM CDT Appointment Department of Neurology in [address] [phone] Darion Heaton M.D. [address] [place] [phone] Discharge Disposition: Home or Self Care 06/20/2023 10:00 AM CDT Comprehensive Visit Department of Neurology in [address] [address] Ej Senior M.B.B.SDaniel [address] [place] [phone] 07/07/2023 1:15 PM CDT Clinical Communication Virtual Review in [address] [address] 07/09/2023 11:15 AM CDT Appointment Department of Radiology, [facility] in [address] [phone] Mohinder Ariza M.D. [address] [place] [phone] 07/09/2023 4:00 PM CDT Office Visit Department of Neurology in [place], [place] [address] [place] [phone] Mohinder Ariza M.D. [address] [place] [address] documented as of this encounter Visit Diagnoses Diagnosis Secondary Malignant Neoplasm Brain (HCC)- Primary documented in this encounter
--- OUTSIDE RECORDS SUMMARY | 2023-05-28 07:04 | XMS_ITS | Encounter Summary ---
Author Name Unknown Organization [facility] Address [address] [place] [address] Care Team Providers Care Roving Court Reporter Name Role Phone Unavailable Primary Care Provider Unavailabl e Reason for Referral * Radiation Therapy (Routine) - Closed Specialty Diagnoses / Procedures Referred By Randy christiansen Referred To Contact Diagnoses Secondary Malignant Neoplasm Brain (HCC) Procedures Initial Rad Onc Treatment Planning CT Simulation Radha Patterson M.D. [address] [place] [phone] [facility] Region Referral ID Status Reason Start Date Expiration Date Visits Re quested Visits Authorized [id number] Closed 04/29/2023 04/28/2024 1 1 Reason for Visit * Radiation Therapy (Routine) - Closed Specialty Diagnoses / Procedures Referred By Randy christiansen Referred To Contact Diagnoses Secondary Malignant Neoplasm Brain (HCC) Procedures Initial Rad Onc Treatment Planning CT Simulation Radha Patterson M.D. 200 [place] [address] [facility] Region Referral ID Status Reason Start Date Expiration Date Visits Re quested Visits Authorized [id number] Closed 04/29/2023 04/28/2024 1 1 Encounter Details Date Type Department Care Team (Latest Contact Info) Description 05/01/2023 8:30 AM CDT - 05/01/2023 3:46 PM CDT Hospital Encounter Department of Radiation Oncology in [address] [address] Radha Patterson M.D. [address] [place] [address] Secondary Malignant Neoplasm Brain (HCC) Social History [...] a day. 180 tablet 3 06/21/2022 05/02/2023 levETIRAcetam (KEPPRA) 750 mg tablet Take 1 tablet (750 mg total) by mouth 2 (two) times a day. 60 tablet 11 05/01/2023 05/02/2023 memantine (NAMENDA) 10 mg tablet Take 10 mg by mouth 2 (two) times a day. 0 05/02/2023 documented as of this encounter Procedure Notes * Code, Kay A RTT - 05/01/2023 8:30 AM CDTAssociated Order(s): Initial Rad Onc Treatment Planning CT Simulation Pre-Procedure Diagnose(s): Secondary Malignant Neoplasm Brain (HCC) Post-Procedure Diagnose(s): Secondary Malignant Neoplasm Brain (HCC) Initial Rad Onc Treatment Planning CT Simulation Performed by: Radha Patterson M.D. Authorized by: Radha Patterson M.D. Simulation was performed under physician supervision based on physician order in preparation for radiation therapy. Physician was immediately available to provide assistance and direction throughout the procedure. Written consent for treatment was completed or confirmed. The patient was appropriately identified and placed in the treatment position using the necessary immobilization to ensure a reproducible treatment position. Reference gay were placed to facilitate marking of isocenter. Area scanned:Head and Neck Contrast used for the simulation procedure: None Patient position:head first supine Custom immobilization: Brainlab mask (2 part mask) Motion management: None Bolus: No CT guidance: Following positioning of the patient, a series of slices was obtained to be utilized in treatment planning. CT images were transferred to the i[employer] treatment planning system, after a reference isocenter was determined and marked. Segmentation and treatment planning will take place prior to treatment delivery. Patient set up and imaging was appropriate and completed without incident. Health Actuary use:No Associated attestation - Radha Patterson M.D. - 05/01/2023 3:45 PM CDT I was present during all critical and rincon portions of the procedure(s) and [facility]. See note for details. documented in this encounter Plan of Treatment Upcoming Encounters Date Type Department Care Team (Latest Contact Info) Description 05/28/2023 9:00 AM CDT Clinical Communication Virtual Review in [place], [place] 200 [place] [address] 05/30/2023 8:00 AM CDT Telemedicine Department of Oncology in [address] [phone] Mohinder Ariza M.D. [address] [place] [phone] 06/19/2023 2:00 PM CDT Appointment Department of Neurology in [address] [phone] Darion Heaton M.D. [address] [place] [phone] Discharge Disposition: Home or Self Care 06/20/2023 10:00 AM CDT Comprehensive Visit Department of Neurology in [address] [phone] Ej Senior M.B.B.S. [address] [place] [phone] 07/07/2023 1:15 PM CDT Clinical Communication Virtual Review in [address] [address] 07/09/2023 11:15 AM CDT Appointment Department of Radiology, [facility] in [address] [address] Mohinder Ariza M.D. [address] [place] [phone] 07/09/2023 4:00 PM CDT Office Visit Department of Neurology in [address] [phone] Mohinder Ariza M.D. [address] [place] [phone] documented as of this encounter Procedures Procedure Name Priority Date/Time Associated Diagnosis Comments INITIAL RAD ONC TREATMENT PLANNING CT SIMULATION Routine 05/01/2023 8:30 AM CDT Secondary Malignant Neoplasm Brain (HCC) documented in this encounter Results * Initial Rad Onc Treatment Planning CT Simulation (05/01/2023 8:30 AM CDT) Narrative DAMION GOLDSTEIN - 05/01/2023 8:30 AM CDT Iglesia, Kay Castro, RTT ? 05/01/2023 ??9:39 AM Initial Rad Onc Treatment Planning CT Simulation Performed by: Radha Patterson M.D. Authorized by: Radha Patterson M.D. ?? Radha Patterson M.D. RADIATION ONCOLOG Y ORDERABLES BRUNO TRISTON na documented in this encounter Visit Diagnoses Diagnosis Secondary Malignant Neoplasm Brain (HCC) documented in this encounter
--- OUTSIDE RECORDS SUMMARY | 2023-05-28 07:04 | XMS_ITS | Encounter Summary ---
Author Name Unknown Organization [facility] Address [address] [place] [address] Care Team Providers Care Wrister Name Role Phone Unavailable Primary Care Provider Unavailabl e Reason for Visit * Radiation Therapy (Routine) - Closed Specialty Diagnoses / Procedures Referred By Contac t Referred To Contact Diagnoses Secondary Malignant Neoplasm Brain (HCC) Procedures Prior Auth Rad Tx [place] STEREOTACTIC BODY RADTN DEL [facility] Radha Patterson M.D. [address] [place] [phone] [facility] Referral ID Status Reason Start Date Expiration Date Visits Re quested Visits Authorized [id number] Closed 04/30/2023 02/17/2024 3 3 Encounter Details Date Type Department Care Team (Late st Contact Info) Description 05/06/2023 4:00 PM CDT Hospital Encounter Department of Radiation Oncology in [place], [place] [address] [place] [phone] Radha Patterson M.D. [address] [place] [phone] Social History Tobacco Use Types Packs/Day Years Used Date Smoking Tobacco: Every Day Cigarettes 0.5 Smokeless Tobacco: Never Alcohol Use Standard Drinks/Week Comments Not Currently 0 (1 standard drink = 0.6 oz pur e alcohol) [facility] Utilities Answer Date Recorded In the [...] AM CDT Clinical Communication Virtual Review in [place], [place] 200 [place] [address] 05/30/2023 8:00 AM CDT Telemedicine Department of Oncology in [place], [place] [address] [place] [phone] Mohinder Ariza M.D. [address] [place] [phone] 06/19/2023 2:00 PM CDT Appointment Department of Neurology in [place], [place] [address] [place] [phone] Darion Heaton M.D. [address] [place] [phone] Discharge Disposition: Home or Self Care 06/20/2023 10:00 AM CDT Comprehensive Visit Department of Neurology in [place], [place] [address] [place] [phone] Ej Senior M.B.B.S. [address] [place] [phone] 07/07/2023 1:15 PM CDT Clinical Communication Virtual Review in [place], [place] 200 [place] [address] 07/09/2023 11:15 AM CDT Appointment Department of Radiology, [facility] in [place], [place] [address] [place] [phone] Mohinder Ariza M.D. [address] [place] [phone] 07/09/2023 4:00 PM CDT Office Visit Department of Neurology in [place], [place] [address] [place] [phone] Mohinder Ariza M.D. [address] [place] [phone] documented as of this encounter Visit Diagnoses Not on filedocumented in this encounter
--- OUTSIDE RECORDS SUMMARY | 2023-05-28 07:04 | XMS_ITS | Encounter Summary ---
Author Name Unknown Organization [facility] Address [address] [place] [address] Care Team Providers Care International Account Representative Name Role Phone Unavailable Primary Care Provider Unavailabl e Encounter Details Date Type Department Care Team ( Contact Info) Description 05/01/2023 Orders Only Department of Neurology in [place], [place] [address] [place] [phone] Mohinder Ariza M.D. [address] [place] [phone] Social History Tobacco Use Types Packs/Day Years [...] AM CDT Clinical Communication Virtual Review in [place], [place] 200 [place] [address] 05/30/2023 8:00 AM CDT Telemedicine Department of Oncology in [place], [place] [address] [place] [phone] Mhoinder Ariza M.D. [address] [place] [phone] 06/19/2023 2:00 PM CDT Appointment Department of Neurology in [place], [place] [address] [place] [phone] Darion Heaton M.D. [address] [place] [phone] Discharge Disposition: Home or Self Care 06/20/2023 10:00 AM CDT Comprehensive Visit Department of Neurology in [place], [place] [address] [place] [phone] Ej Senior M.B.B.S. [address] [place] [phone] 07/07/2023 1:15 PM CDT Clinical Communication Virtual Review in [place], [place] 200 [place] [address] 07/09/2023 11:15 AM CDT Appointment Department of Radiology, [facility] in [place], [place] [address] [place] [phone] Mohinder Ariza M.D. [address] [place] [phone] 07/09/2023 4:00 PM CDT Office Visit Department of Neurology in [place], [place] [address] [place] [phone] Mohinder Ariza M.D. [address] [place] [phone] documented as of this encounter Visit Diagnoses Not on filedocumented in this encounter
--- OUTSIDE RECORDS SUMMARY | 2023-05-28 07:04 | XMS_ITS | Encounter Summary ---
Author Name Unknown Organization [facility] Address [address] [place] [address] Care Team Providers Care Concrete Stone Finishing Supervisor Name Role Phone Unavailable Primary Care Provider Unavailabl e Reason for Referral * Outpatient (Routine) - Authorized Specialty Diagnoses / Procedures Referred By Contac t Referred To Contact Radiation Oncology Radha Patterson M.D. [address] [place] [phone] [facility] Region Referral ID Status Reason Start Date Expiration Date V isits Requested Visits Authorized [id number] Authorized 04/29/2023 10/28/2024 10 10 * Radiation Therapy (Routine) - Authorized Specialty Diagnoses / Procedures Referred By Contac t Referred To Contact Diagnoses Secondary Malignant Neoplasm Brain (HCC) Procedures Management Visit Radha Patterson M.D. [address] [place] [phone] [facility] Region Referral ID Status Reason Start Date Expiration Date V isits Requested Visits Authorized [id number] Authorized 04/29/2023 04/28/2024 10 10 * Radiation Therapy (Routine) - Closed Specialty Diagnoses / Procedures Referred By Contac t Referred To Contact Diagnoses Secondary Malignant Neoplasm Brain (HCC) Procedures Prior Auth Rad Tx CT STEREOTACTIC BODY RADTN DEL [facility] Radha Patterson M.D. [address] [place] [phone] [facility] Referral ID Status Reason Start Date Expiration Date Visits Re quested Visits Authorized [id number] Closed 04/30/2023 02/17/2024 3 3 * Radiation Therapy (Routine) - Closed Specialty Diagnoses / Procedures Referred By Randy christiansen Referred To Contact Diagnoses Secondary Malignant Neoplasm Brain (HCC) Procedures Initial Rad Onc Treatment Planning CT Simulation Radha Patterson M.D. [address] [place] [phone] [facility] Referral ID Status Reason Start Date Expiration Date Visits Re quested Visits Authorized [id number] Closed 04/29/2023 04/28/2024 1 1 Encounter Details Date Type Department Care Team (Late st Contact Info) Description 04/29/2023 Clinical Communication Department of Radiation Oncology in [place], [place] [address] [place] [address] Jane Tobar P.A.-C., M.S. [address] [place] [phone] Social History Tobacco Use Types Packs/Day Years [...] Encounter - Jane Tobar P.A.-C., M.S. - 04/29/2023 3:54 PM CDT We received a phone from Dr. Curtis at the [facility] ER today regarding this patient. The patient was in the ER after experiencing a focal seizure in the right leg on Friday and then progressive weakness and numbness of her right hand that led to her presentation. The patient had already had a head CT without contrast performed, but the images or report were not yet available. We were able to obtain the CT report and the patient's case was reviewed with Dr. Patterson. The CT report demonstrated a 6 mm focus of dense blood products at the left occipital lobe corresponding to the previously noted hemorrhagic metastatic focus in this region. No significant perilesional edema. No other intracranial blood products. Encephalomalacia and gliosis at the lateral left precentral gyrus, corresponding to previously noted metastatic lesion. No evidence of new intracranial metastases. Dr. Patterson recommended obtaining a MRI brain, including straight axials, for potential radiation treatment planning. Dr. Curtis was going to try and do this through the ER. In addition, he was considering starting her on dexamethasone. Later in the day, the patient was able to proceed with a MRI brain. 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 There was a 6 mm left superior postcentral gyrus lesion with minimalassociated vasogenic edema, a 10 mm ring-enhancing lesion right superior cerebellar hemisphere withmild associated vasogenic edema, and a 6 mm lesion left medial cerebellar hemisphere. It was reported that the lesion within the left high postcentral gyrus may contribute to the patient's symptoms. The patient's MRI scan report was reviewed with Dr. Patterson who recommended scheduling the patient for a return visit here with planned CT simulation on . Orders will be placed. Jane Tobar P.A.-C., M.S. documented in this encounter Plan of Treatment Upcoming Encounters Date Type Department Care Team (Latest Contact Info) Description 05/28/2023 9:00 AM CDT Clinical Communication Virtual Review in [place], [place] 200 [place] [address] 05/30/2023 8:00 AM CDT Telemedicine Department of Oncology in [place], [place] [address] [place] [phone] Mohinder Ariza M.D. [address] [place] [phone] 06/19/2023 2:00 PM CDT Appointment Department of Neurology in [address] [phone] Darion Heaton M.D. [address] [place] [phone] Discharge Disposition: Home or Self Care 06/20/2023 10:00 AM CDT Comprehensive Visit Department of Neurology in [address] [phone] Ej Senior M.B.B.S. [address] [place] [phone] 07/07/2023 1:15 PM CDT Clinical Communication Virtual Review in [address] [address] 07/09/2023 11:15 AM CDT Appointment Department of Radiology, [facility] in [address] [address] Mohinder Ariza M.D. [address] [place] [phone] 07/09/2023 4:00 PM CDT Office Visit Department of Neurology in [address] [phone] Mohinder Ariza M.D. [address] [place] [phone] Scheduled Orders Name Type Priority Associated Diagnoses Order Schedule Prior Auth Rad Tx Radiation Oncology Routine Secondary Malignant Neoplasm Brain (HCC) Ordered: 04/29/2023 Management Visit Radiation Oncology Routine Secondary Malignant Neoplasm Brain (HCC) 10 Occurrences starting 04/29/2023 until 04/28/2024 Scheduled Referrals Name Type Priority Associated Diagnoses Order Schedule Radiation Oncology nurse visit (clinic) Outpatient Referral Routine 10 Occurrenc es starting 04/29/2023 until 04/28/2024 documented as of this encounter Results * Initial Rad Onc Treatment Planning CT Simulation (05/01/2023 8:30 AM CDT) Narrative DAMION GOLDSTEIN - 05/01/2023 8:30 AM CDT Code, Kay Castro, RTT ? 05/01/2023 ??9:39 AM Initial Rad Onc Treatment Planning CT Simulation Performed by: Radha Patterson M.D. Authorized by: Radha Patterson M.D. ?? Radha Patterson M.D. RADIATION ONCOLOG Y ORDERABLES DAMION GOLDSTEIN na documented in this encounter Visit Diagnoses Diagnosis Secondary Malignant Neoplasm Brain (HCC)- Primary Secondary Malignant Neoplasm Brain (HCC) documented in this encounter
--- OUTSIDE RECORDS SUMMARY | 2023-05-28 07:04 | XMS_ITS | Encounter Summary ---
Author Name Unknown Organization [facility] Address [address] [place] [address] Care Team Providers Care Hotel Assistant General Manager Name Role Phone Unavailable Primary Care Provider Unavailabl e Reason for Visit * Reason Onset Date Comments levetiracetam 05/02/2023 Encounter Details Date Type Department Care Team (Late st Contact Info) Description 05/02/2023 Clinical Communication Department of Neurology in [place], [place] [address] [place] [phone] Mohinder Ariza M.D. [address] [place] [phone] levetiracetam Social History Tobacco Use Types Packs/Day Years [...] AM CDT Clinical Communication Virtual Review in [place], [place] 200 [place] [address] 05/30/2023 8:00 AM CDT Telemedicine Department of Oncology in [place], [place] [address] [place] [phone] Mohinder Ariza M.D. [address] [place] [phone] 06/19/2023 2:00 PM CDT Appointment Department of Neurology in [place], [place] [address] [place] [phone] Darion Heaton M.D. [address] [place] [phone] Discharge Disposition: Home or Self Care 06/20/2023 10:00 AM CDT Comprehensive Visit Department of Neurology in [address] [phone] Ej Senior M.B.B.S. [address] [place] [phone] 07/07/2023 1:15 PM CDT Clinical Communication Virtual Review in [place], [place] 200 [place] [address] 07/09/2023 11:15 AM CDT Appointment Department of Radiology, [facility] in [address] [phone] Mohinder Ariza M.D. [address] [place] [phone] 07/09/2023 4:00 PM CDT Office Visit Department of Neurology in [address] [phone] Mohinder Ariza M.D. [address] [place] [phone] documented as of this encounter Visit Diagnoses Not on filedocumented in this encounter
--- OUTSIDE RECORDS SUMMARY | 2023-05-28 07:05 | XMS_ITS | Continuity of Care Document ---
Author Name Unknown Organization [facility] enter Address [address] [place] [phone] Phone Care Team Providers Care Ict Support And Test Engineers Name Role Phone [facility] Unavailable Unava ilable Procedures Procedure Date INJECT SACROILIAC JOINT INJECT SACROILIAC JOINT INJECT SACROILIAC JOINT Inj for sacroiliac jt anesth Inj for sacroiliac jt anesth INJ FORAMEN EPIDURAL L/S INJ FORAMEN EPIDURAL L/S Advance Directives Directive Yes / No Effective Date File Name No Information Encounters Encounter Description Practice Location Reason(s) For Visit Diagnoses Date Provider Providers Copied on Encounter [facility], [address] [place] [address], [id number], tel:[phone] [place] [address] No Information 3 [facility]. [address] [place] [address], [id number], [place]. tel:[phone] Referring Provider: Renetta Bush, [address] [facility] [place], [address] . tel:[phone] [facility], [address] [place] [address], [id number], tel:[phone] [place] [address] No Information 3 [facility]. [address] [place] [address], [id number], . tel:[phone] Referring Provider: Miles Rey, [address] [place], [address] . tel:[phone] [facility], [address] [place] [address], [id number], tel:[phone] [facility] No Information 3 2 [facility]. [address] [place] [address], [id number], . tel:[phone] Referring Provider: Liam Blakely [employer] [address] [facility] [place] [address], [place], [address]. tel:[phone] [facility], [address] [place] [address], [id number], tel:[phone] [place] [address] No Information 2 [facility]. [address] [place] [address], [id number], . tel:[phone] Referring Provider: Renetta Bush, [address] [place], [address] . tel:[phone] [facility], [address] [place] [address], [id number], tel:[phone] [place] [address] No Information 0 [facility]. [address] [place] [address], [id number], . tel:[phone] Referring Provider: Liam Blakely [employer] [address] [facility] [place] [address], [place], [address]. tel:[phone] Family History Family Member Type Diagnosis Age At Onset No Information Payers Payer name Insurance type Covered republican ID Christian fragoso(s) Ariel Cross Ariel Garnica BL [id number] Social History Type Description Quantity Date [...]
--- OUTSIDE RECORDS SUMMARY | 2023-05-28 07:05 | XMS_ITS | Encounter Summary ---
Author Name Unknown Organization [facility] Address [address] [place] [address] Care Team Providers Care Therapist'S Assistant Name Role Phone Unavailable Primary Care Provider Unavailabl e Reason for Visit * Reason Comments Med Refill Encounter Details Date Type Department Care Team ( Contact Info) Description 03/31/2023 Refill Department of Neurology in [place], [place] [address] [place] [phone] Mohinder Ariza M.D. [address] [place] [phone] Med Refill Social History Tobacco Use Types [...] AM CDT Clinical Communication Virtual Review in [place], [place] 200 [place] [address] 05/30/2023 8:00 AM CDT Telemedicine Department of Oncology in [place], [place] [address] [place] [phone] Mohinder Ariza M.D. [address] [place] [phone] 06/19/2023 2:00 PM CDT Appointment Department of Neurology in [place], [place] [address] [place] [phone] Darion Heaton M.D. [address] [place] [phone] Discharge Disposition: Home or Self Care 06/20/2023 10:00 AM CDT Comprehensive Visit Department of Neurology in [address] [phone] Ej Senior M.B.B.SDaniel [address] [place] [phone] 07/07/2023 1:15 PM CDT Clinical Communication Virtual Review in [place], [place] 200 [place] [address] 07/09/2023 11:15 AM CDT Appointment Department of Radiology, [facility] in [address] [phone] Mohinder Ariza M.D. [address] [place] [phone] 07/09/2023 4:00 PM CDT Office Visit Department of Neurology in [address] [phone] Mohinder Ariza M.D. [address] [place] [phone] documented as of this encounter Visit Diagnoses Not on filedocumented in this encounter
--- OUTSIDE RECORDS SUMMARY | 2023-05-28 07:05 | XMS_ITS | Continuity of Care Document ---
Author Name Unknown Organization [facility] Address [address] [place] [phone] Care Team Providers Care Payroll Lead Name Role Phone [facility] Unavailable Unav ailable Procedures Procedure Date INJECT SACROILIAC JOINT Inj for sacroiliac jt anesth Inj for sacroiliac jt anesth INJ FORAMEN EPIDURAL L/S INJ FORAMEN EPIDURAL L/S Inj for sacroiliac jt anesth Advance Directives Directive Yes / No Effective Date File Name No Information Encounters Encounter Description Practice Location Reason(s) For Visit Diagnoses Date Provider Providers Copied on Encounter [facility], [address] [place] [address], [id number], [facility] No Information [facility]. [address] [place] [address], [id number], . tel:[phone] Referring Provider: Renetta Bush, [address] [place] [address], [phone]. tel:[phone] [facility], [address] [place] [address], [id number], [facility] No Information [facility]. [address] [place] [address], [id number], . tel:[phone] Referring Provider: Renetta Bush, [address] [place] [address], [id number]. tel:[phone] [facility], [address] [place], [place], [id number], [facility] [place] No Information [facility]. [address] [place], [place], [id number], . tel:[phone] Referring Provider: Beth Vick, [address] [place], [address]. tel:[phone] [facility], [address] [place], [place], [id number], [facility] No Information [facility]. [address] [place], [place], [id number], . tel:[phone] Referring Provider: Miles Jiménez, [address] [place], [address]. tel:[phone] Family History Family Member Type Diagnosis Age At Onset No Information Payers Payer name Insurance type Covered democrat ID Authoriza [email or web address](s) No Information Social History [...]
--- OUTSIDE RECORDS SUMMARY | 2023-05-28 07:05 | XMS_ITS | Encounter Summary ---
Author Name Unknown Organization [facility] Address [address] [place] [address] Care Team Providers Care Intervention Manager Name Role Phone Unavailable Primary Care Provider Unavailabl e Encounter Details Date Type Department Care Team (Late st Contact Info) Description 02/03/2023 Documentation Department of Radiation Oncology in [place], [place] [address] [place] [phone] Radha Patterson M.D. [address] [place] [phone] Social History Tobacco Use Types Packs/Day Years [...] Miscellaneous Notes * Radiation Completion Notes - Geraldine Chang R.N. - 02/03/2023 11:59 PM CARD GRINDER HELPER DIAGNOSIS: 1. 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 Treatment Intent: Palliative Concomitant Therapy: None Single Plan Treatment Course: 2xMultiSite Plan ID Fractions Dose / Fraction (cGy) Dose Treated (cGy) Dose Planned (cGy) First Treatment Last Treatment Elapsed Days [id number] 400 2000 2000 01/21/2023 01/27/2023 6 [id number] 300 3000 3000 01/21/2023 02/03/2023 13 Course Summary 01/21/2023 02/03/2023 13 Radiation Modality: Photons CLINICAL SUMMARY Belkis Manjarrez completed radiation treatment as planned without interruptions. The course of treatment was tolerated well. The patient experienced toxicities of grade 1 esophagitis during radiation treatment. TREATMENT RESPONSE: Response to treatment will be determined by post-treatment imaging and/or laboratory work. RECOMMENDED FOLLOW UP: Primary Medical Oncologist. Follow up will be with Dr. Driver. Signed by: Geraldine Chang R.N., 03/04/2023 12:57 PM CARD GRINDER HELPER [facility] [address] [place] [address] GRINDER HELPER documented in this encounter Plan of Treatment Upcoming Encounters Date Type Department Care Team (Latest Contact Info) Description 05/28/2023 9:00 AM CDT Clinical Communication Virtual Review in [address] [address] 05/30/2023 8:00 AM CDT Telemedicine Department of Oncology in [address] [phone] Mohinder Ariza M.D. [address] [place] [phone] 06/19/2023 2:00 PM CDT Appointment Department of Neurology in [address] [phone] Darion Heaton M.D. [address] [place] [phone] Discharge Disposition: Home or Self Care 06/20/2023 10:00 AM CDT Comprehensive Visit Department of Neurology in [place], [place] [address] [place] [phone] Ej Senior M.B.B.S. [address] [place] [phone] 07/07/2023 1:15 PM CDT Clinical Communication Virtual Review in [place], [place] 200 [place] [address] 07/09/2023 11:15 AM CDT Appointment Department of Radiology, [facility] in [address] [phone] Mohinder Ariza M.D. [address] [place] [phone] 07/09/2023 4:00 PM CDT Office Visit Department of Neurology in [address] [phone] Mohinder Ariza M.D. 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
--- OUTSIDE RECORDS SUMMARY | 2023-05-28 07:05 | XMS_ITS | Encounter Summary ---
Author Name Unknown Organization [facility] Address [address] [place] [address] Care Team Providers Care Survey Questionnaire Designer Name Role Phone Unavailable Primary Care Provider Unavailabl e Reason for Visit * Reason Comments Med Change Request Encounter Details Date Type Department Care Team ( Contact Info) Description 02/27/2023 Refill Department of Radiation Oncology in [place], [place] [address] [place] [phone] Marnie Schultz APRN, C.N.P., D.N.P. [address] [place] [phone] Med Change Request Social History Tobacco Use Types Packs/Day Years [...] AM CDT Clinical Communication Virtual Review in [place], [place] 200 [place] [address] 05/30/2023 8:00 AM CDT Telemedicine Department of Oncology in [place], [place] [address] [place] [phone] Mohinder Ariza M.D. [address] [place] [phone] 06/19/2023 2:00 PM CDT Appointment Department of Neurology in [place], [place] [address] [place] [phone] Darion Heaton M.D. [address] [place] [phone] Discharge Disposition: Home or Self Care 06/20/2023 10:00 AM CDT Comprehensive Visit Department of Neurology in [address] [phone] Ej Senior M.B.B.S. [address] [place] [phone] 07/07/2023 1:15 PM CDT Clinical Communication Virtual Review in [place], [place] 200 [place] [address] 07/09/2023 11:15 AM CDT Appointment Department of Radiology, [facility] in [address] [phone] Mohinder Ariza M.D. [address] [place] [phone] 07/09/2023 4:00 PM CDT Office Visit Department of Neurology in [address] [phone] Mohinder Ariza M.D. [address] [place] [phone] documented as of this encounter Visit Diagnoses Not on filedocumented in this encounter
--- OUTSIDE RECORDS SUMMARY | 2023-05-28 07:05 | XMS_ITS | Encounter Summary ---
Author Name Unknown Organization [facility] Address [address] [place] [address] Care Team Providers Care Harness And Bag Inspector Name Role Phone Unavailable Primary Care Provider Unavailabl e Encounter Details Date Type Department Care Team ( Contact Info) Description 03/31/2023 Orders Only Department of Oncology in [place], [place] [address] [place] [phone] Mohinder Ariza M.D. [address] [place] [phone] Social History Tobacco Use Types Packs/Day Years [...] AM CDT Clinical Communication Virtual Review in [place], [place] 200 [place] [address] 05/30/2023 8:00 AM CDT Telemedicine Department of Oncology in [place], [place] [address] [place] [phone] Mohinder Airza M.D. [address] [place] [phone] 06/19/2023 2:00 PM CDT Appointment Department of Neurology in [place], [place] [address] [place] [phone] Darion Heaton M.D. [address] [place] [phone] Discharge Disposition: Home or Self Care 06/20/2023 10:00 AM CDT Comprehensive Visit Department of Neurology in [place], [place] [address] [place] [phone] Ej Senior M.B.B.S. [address] [place] [phone] 07/07/2023 1:15 PM CDT Clinical Communication Virtual Review in [place], [place] 200 [place] [address] 07/09/2023 11:15 AM CDT Appointment Department of Radiology, [facility] in [place], [place] [address] [place] [phone] Mohinder Ariza M.D. [address] [place] [phone] 07/09/2023 4:00 PM CDT Office Visit Department of Neurology in [place], [place] [address] [place] [phone] Mohinder Ariza M.D. [address] [place] [phone] documented as of this encounter Visit Diagnoses Not on filedocumented in this encounter
--- OUTSIDE RECORDS SUMMARY | 2023-05-28 07:06 | XMS_ITS | Continuity of Care Document ---
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 Name Role Phone Murphy Chi Unavailable Unavailable Allergies, Adverse Reactions, Alerts Substance Reaction Status Criticality No Known Allergies Active No Inform ation Medications Medication Instructions Dosage Effective Dates (start - stop) Status Comments oxycodone 10 mg tablet take 1 tablet by oral route every 6 hours as needed for chronic pain; max 4/day - Active amlodipine 5 mg tablet take 1 tablet by oral route every day 5 MG - Active atorvastatin 20 mg tablet take 1 tablet by oral route every day 20 MG - Active levothyroxine 100 mcg capsule take 1 capsule by oral route every day 100 MCG - Active ibuprofen 200 mg tablet Take 200 mg by mouth 4 (four) times a day as needed. - Active LEVETIRACETAM (unknown strength) take 1 tablet by oral route 2 times every day Not Available - Active atorvastatin 20 mg tablet take 1 tablet by oral route every day 20 MG - Active Tylenol Extra Strength 500 mg tablet take 2 tablet by oral route every 4 - 6 hours as needed not to exceed 8 tablets per 24hrs 1000 MG - Active oxycodone 10 mg tablet take 1 tablet by oral route every 6 hours as needed for chronic pain; max 3/day - No Longer Active Procedures Procedure Date OFFICE VISIT, EST TELEMEDICINE OFFICE VISIT, EST TELEMEDICINE OFFICE/OUTPATIENT VISIT, EST Drug test def 8-14 classes Drug Urine Toxology With Chromatography OFFICE VISIT, EST TELEMEDICINE OFFICE VISIT, EST TELEMEDICINE Injection Sacroiliac Left OFFICE/OUTPATIENT VISIT, EST INJ TRIGGER POINT, 1/2 MUSCL Drug Urine Toxology With Chromatography Drug test def 8-14 classes OFFICE VISIT, EST TELEMEDICINE OFFICE/OUTPATIENT VISIT, EST [...] OFFICE VISIT, EST TELEMEDICINE INJ TRIGGER POINT, 1/2 MUSCL Kenalog Triamcinolone [...] Copied on Encounter OFFICE VISIT, EST TELEMEDICINE [facility], [address], [place], [id number] , [place] tel:[phone] [facility] low back pain (chief complaint) Malignant neoplasm of pleuraChronic pain syndromeSacroilii tisSpinal stenosis, lumbar regionRadiculopat hy, lumbar regionMyalgia, other siteLong term (current) use of opiate analgesic Apr- 4 Kelsey Arrington. [address], [place], [place], [id number] , [place]. tel:[phone] OFFICE VISIT, EST TELEMEDICINE [facility], [address], [place], [id number] , [place] tel: [phone] [facility] low back pain (chief complaint) Malignant neoplasm of pleuraChronic pain syndromeSacroilii tisSpinal stenosis, lumbar regionRadiculopat hy, lumbar regionMyalgia, other siteLong term (current) use of opiate analgesic Apr- 4 Kelsey Arrington. [address] [place] [address] [address], [place], [id number] , [place]. tel: [phone] OFFICE/OUTPAT IENT VISIT, [facility], [address] [place] [address], [id number] , [place] tel: [phone] [facility] Low back pain (chief complaint) Malignant neoplasm of pleuraChronic pain syndromeSacroilii tisSpinal stenosis, lumbar regionRadiculopat hy, lumbar regionMyalgia, other siteLong term (current) use of opiate analgesicEncounte r for therapeutic drug level monitoring 4 Kelsey Arrington. [address] [place] [address] [address], [place], [id number] , [place]. tel: [phone] Referring Provider: Miles Jiménez, [address] [place] [address], [address]. tel:[phone] OFFICE VISIT, [facility] TELEMEDICINE [facility], [address] [place] [address], [id number] , [place] tel: [phone] [facility] Neck Pain (chief complaint) Malignant neoplasm of pleuraChronic pain syndromeSacroilii tisSpinal stenosis, lumbar regionRadiculopat hy, lumbar regionMyalgia, other siteLong term (current) use of opiate analgesic 4 Kelsey Arrington. [address] [place] [address] [address], [facility] [place], [id number] , [place]. tel: [phone] OFFICE VISIT, [facility], [address] [place] [address], [id number] , [place] tel: [phone] [facility] Neck Pain (chief complaint) Malignant neoplasm of pleuraChronic pain syndromeSacroilii tisSpinal stenosis, lumbar regionRadiculopat hy, lumbar regionMyalgia, other siteLong term (current) use of opiate analgesic 3 Kelsey Arrington. [address] [place] [address] [address], [place], [id number] , [place]. tel: [phone] [facility], [address] [place] [address], [id number] , [place] tel:[phone] [facility] Sacroiliitis, not elsewhere classified 3 Eleazar Jackson. [address] [place], [place], [id number] , [place]. tel:[phone] Referring Provider: Renetta Bush, [address] [place], [address]. tel:[phone] OFFICE/OUTPAT IENT VISIT, EST [facility], [address] [place] [address], [id number] , [place] [phone] [facility] Neck Pain (chief complaint) Malignant neoplasm of pleuraChronic pain syndromeSacroilii tisSpinal stenosis, lumbar regionRadiculopat hy, lumbar regionMyalgia, other siteLong term (current) use of opiate analgesicEncounte r for therapeutic drug level monitoring 3 Kelsey Arrington. [address] [place] [address] [address], [place], [place], [id number] , [place]. tel:[phone] Referring Provider: Murphy Cole, [address] [place] [address] [address], [place], [address]. tel:[phone] [facility], [address] [place] [address], [id number] , [place] [phone] [facility] No Information 3 Kelsey Arrington. [address] [place] [address] [address], [place], [place], [id number] , [place]. [phone] Referring Provider: Murphy Cole, [address] [place] [address] [address], [place], [address]. tel:[phone] OFFICE VISIT, EST TELEMEDICINE [facility], [address] [place] [address], [id number] , [place] tel:[phone] [facility] Neck Pain (chief complaint) Malignant neoplasm of pleuraChronic pain syndromeSacroilii tisSpinal stenosis, lumbar regionRadiculopat hy, lumbar regionMyalgia, other siteLong term (current) use of opiate analgesic Oct- 3 Kelsey Arrington. [address] [place] [address] [address], [place], [place], [id number] , [place]. tel:[phone] Referring Provider: Miles Jiménez, [address] [place] [address], [address]. tel:[phone] OFFICE/OUTPAT IENT VISIT, EST [facility], [address] [place] [address], [id number] , [place] tel:[phone] [facility] Neck Pain (chief complaint) Malignant neoplasm of pleuraChronic pain syndromeSacroilii tisSpinal stenosis, lumbar regionRadiculopat hy, lumbar regionMyalgia, other siteLong term (current) use of opiate analgesicEncounte r for therapeutic drug level monitoring 3 Kelsey Arrington. [address] [place] [address] [address], [place], [place], [id number] , [place]. tel:[phone] Referring Provider: Miles Jiménez, [address] [place] [address], [address]. tel:[phone] [facility], [address] [place] [address], [id number] , [place] tel:[phone] [facility] No Information 3 Kelsey Arrington. [address] [place] [address] [address], [place], [place], [id number] , [place]. tel:[phone] Referring Provider: Miles Jiménez, [address] [place] [address], [address]. tel:[phone] OFFICE VISIT, EST TELEMEDICINE [facility], [address] [place] [address], [id number] , [place] tel:[phone] [facility] Neck Pain (chief complaint) Malignant neoplasm of pleuraChronic pain syndromeSacroilii tisSpinal stenosis, lumbar regionRadiculopat hy, lumbar regionMyalgia, other siteLong term (current) use of opiate analgesic Aug- 3 Colekayla Arrington. [address] [place] [address] [address], [place], [place], [id number] , [place]. tel:[phone] Referring Provider: Miles Jiménez, [address] [place] [address], [address]. tel:[phone] OFFICE VISIT, EST TELEMEDICINE [facility], [address] [place] [address], [id number] , [place] tel: [phone] [facility] Neck Pain (chief complaint) Chronic pain syndromeSacroilii tisSpinal stenosis, lumbar regionRadiculopat hy, lumbar regionMyalgia, other siteLong term (current) use of opiate analgesicMalignan t neoplasm of pleura 3 Kelsey Arrington. [address] [place] [address] [address], [place], [place], [id number] , [place]. tel: [phone] Referring Provider: Miles Jiménez, [address] [place] [address], [address]. tel:[phone] OFFICE/OUTPAT IENT VISIT, [facility], [address] [place] [address], [id number] , [place] tel: [phone] [facility] low back pain (chief complaint) Chronic pain syndromeSacroilii tisSpinal stenosis, lumbar regionRadiculopat hy, lumbar regionMyalgia, other siteLong term (current) use of opiate analgesicMalignan t neoplasm of pleuraEncounter for therapeutic drug level monitoring 3 Colehina Arrington. [address] [place] [address] [address], [place], [place], [id number] , [place]. tel: [phone] Referring Provider: Miles Jiménez, [address] [place] [address], [address]. tel:[phone] [facility], [address] [place] [address], [id number] , [place] tel: [phone] [facility] No Information 3 Colehina Arrington. [address] [place] [address] [address], [place], [place], [id number] , [place]. tel:[phone] OFFICE VISIT, [facility], [address] [place] [address], [id number] , [place] tel:[phone] [facility] low back pain (chief complaint) Chronic pain syndromeSacroilii tisSpinal stenosis, lumbar regionRadiculopat hy, lumbar regionMyalgia, other siteLong term (current) use of opiate analgesic Apr-2 - 3 Kelsey Arrington. [address] [facility] [address], [place], [place], [id number] , [place]. [phone] Referring Provider: Miles Jiménez, [address] [place] [address], [address]. tel:[phone] OFFICE VISIT, [facility], [address] [place] [address], [id number] , [place] [phone] [facility] low back pain (chief complaint) Spinal stenosis, lumbar regionSacroiliiti sMyalgia, other siteRadiculopathy , lumbar regionLong term (current) use of opiate analgesicChronic pain syndrome Mar-2 3 Jenny Campos. [address] [place] [address], [id number] , [place]. [phone] Referring Provider: Miles Jiménez, [address] [place] [address], [address]. tel:[phone] OFFICE/OUTPAT IENT VISIT, [facility], [address] [place] [address], [id number] , [place] [phone] [facility] low back pain (chief complaint) SacroiliitisSpina l stenosis, lumbar regionRadiculopat hy, lumbar regionMyalgia, other siteLong term (current) use of opiate analgesic Apr-0 - 3 Kelsey Arrington. [address] [facility] [address], [place], [place], [id number] , [place]. tel:[phone] Referring Provider: Miles Jiménez, [address] [place] [address], [address]. tel:[phone] [facility], [address] [place] [address], [id number] , [place] tel: [phone] [facility] No Information 3 Kelsey Arrington. [address] [place] [address] [address], [place], [place], [id number] , [place]. tel: [phone] [facility], [address] [place] [address], [id number] , [place] tel: [phone] [facility] Sacroiliitis, not elsewhere classified 3 Krissy Aquino. [address] [place] [address], [id number] , [place]. tel: [phone] Referring Provider: Miles Jiménez, [address] [place] [address], [address]. tel:[phone] OFFICE VISIT, EST TELEMEDICINE [facility], [address] [place] [address], [id number] , [place] tel: [phone] [facility] low back pain (chief complaint) SacroiliitisSpina l stenosis, lumbar regionRadiculopat hy, lumbar regionMyalgia, other siteLong term (current) use of opiate analgesic 3 Kelsey Arrington. [address] [place] [address] [address], [place], [place], [id number] , [place]. tel: [phone] OFFICE VISIT, EST TELEMEDICINE [facility], [address] [place] [address], [id number] , [place] tel: [phone] [facility] low back pain (chief complaint) SacroiliitisSpina l stenosis, lumbar regionRadiculopat hy, lumbar regionMyalgia, other siteLong term (current) use of opiate analgesic 2 Kelsey Arrington. [address] [place] [address] [address], [place], [place], [id number] , [place]. tel: [phone] [facility], [address] [place] [address], [id number] , [place] tel: [phone] [facility] No Information 2 Kelsey Arrington. [address] [place] [address] [address], [place], [place], [id number] , [place]. tel:[phone] Referring Provider: Miles Jiménez, [address] [place] [address], [address]. tel:[phone] OFFICE/OUTPAT IENT VISIT, [facility], [address] [place] [address], [id number] , [place] [phone] [facility] low back pain (chief complaint) SacroiliitisSpina l stenosis, lumbar regionRadiculopat hy, lumbar regionMyalgia, other siteLong term (current) use of opiate analgesicEncounte r for therapeutic drug level monitoring 2 Kelsey Arrington. [address] [place] [address] [address], [place], [place], [id number] , [place]. [phone] Referring Provider: Miles Jiménez, [address] [place] [address], [address]. tel:[phone] OFFICE VISIT, [facility] TELEMEDICINE [facility], [address] [place] [address], [id number] , [place] [phone] [facility] low back pain (chief complaint) SacroiliitisSpina l stenosis, lumbar regionRadiculopat hy, lumbar regionMyalgia, other siteLong term (current) use of opiate analgesic 2 Kelsey Arrington. [address] [place] [address] [address], [place], [place], [id number] , [place]. [phone] [facility], [address] [place] [address], [id number] , [place] [phone] [facility] Sacroiliitis, not elsewhere classified Sep- 2 Reddy Wheeler. [employer] [facility], [address], [place], [address], [place]. [phone] Referring Provider: Miles Jiménez, [address] [place] [address], [address]. tel:[phone] OFFICE VISIT, EST TELEMEDICINE [facility], [address] [place] [address], [id number] , [place] [phone] [facility] low back pain (chief complaint) SacroiliitisSpina l stenosis, lumbar regionRadiculopat hy, lumbar regionMyalgia, other siteLong term (current) use of opiate analgesic Sep-2 2 Colehina Arrington. [address] [place] [address] [address], [place], [place], [id number] , [place]. [phone] Referring Provider: Miles Jiménez, [address] [place] [address], [address]. tel:[phone] [facility], [address] [place] [address], [id number] , [place] [phone] [facility] No Information 2 Kelsey Arrington. [address] [place] [address] [address], [place], [place], [id number] , [place]. [phone] Referring Provider: Miles Jiménez, [address] [place] [address], [address]. tel:[phone] OFFICE/OUTPAT IENT VISIT, [facility], [address] [place] [address], [id number] , [place] [phone] [facility] low back pain (chief complaint) SacroiliitisSpina l stenosis, lumbar regionRadiculopat hy, lumbar regionMyalgia, other siteLong term (current) use of opiate analgesic 2 Kelsey Arrington. [address] [place] [address] [address], [place], [place], [id number] , [place]. tel:[phone] Referring Provider: Miles Jiménez, [address] [place] [address], [address]. tel:[phone] OFFICE VISIT, EST TELEMEDICINE [facility], [address] [place] [address], [id number] , [place] [phone] [facility] Back Pain (chief complaint) SacroiliitisSpina l stenosis, lumbar regionRadiculopat hy, lumbar regionMyalgia, other siteLong term (current) use of opiate analgesic 2 Kelsey Arrington. [address] [place] [address], [id number] , [place]. tel: [phone] OFFICE VISIT, EST TELEMEDICINE [facility], [address] [place] [address], [id number] , [place] tel: [phone] [facility] Back Pain (chief complaint) SacroiliitisSpina l stenosis, lumbar regionRadiculopat hy, lumbar regionMyalgia, other siteLong term (current) use of opiate analgesic 2 Kelsey Arrington. [address] [place] [address], [id number] , [place]. tel: [phone] [facility], [address] [place] [address], [id number] , [place] tel: [phone] [facility] Sacroiliitis, not elsewhere classified 2 Eleazar Jackson. [address] [place] [address], [id number] , [place]. tel: [phone] Referring Provider: Miles Jiménez, [address] [place] [address], [address]. [phone] OFFICE VISIT, EST TELEMEDICINE [facility], [address] [place] [address], [id number] , [place] tel: [phone] [facility] Back Pain (chief complaint) SacroiliitisSpina l stenosis, lumbar regionRadiculopat hy, lumbar regionMyalgia, other siteLong term (current) use of opiate analgesic 2 Colehina Arrington. [address] [place] [address], [place], [place], [id number] , [place]. tel:[phone] Referring Provider: Miles Jiménez, [address] [place] [address], [address]. tel:[phone] OFFICE VISIT, EST TELEMEDICINE [facility], [address] [place] [address], [id number] , [place] tel: [phone] [facility] Back Pain (chief complaint) SacroiliitisSpina l stenosis, lumbar regionRadiculopat hy, lumbar regionMyalgia, other siteLong term (current) use of opiate analgesic June- 2 Kelsey Arrington. [facility] [address], [facility] [place], [id number] , [place]. tel: [phone] [facility], [address] [place] [address], [id number] , [place] tel: [phone] [facility] No Information 2 Kelsey Arrington. [address] [place] [address] [address], [place], [place], [id number] , [place]. tel: [phone] OFFICE/OUTPAT IENT VISIT, EST [facility], [address] [place] [address], [id number] , [place] tel: [phone] [facility] Back Pain (chief complaint) Myalgia, other siteSacroiliitisS lester stenosis, lumbar regionRadiculopat hy, lumbar regionLong term (current) use of opiate analgesicEncounte r for screening for other disorderEncounter for therapeutic drug level monitoring 2 Colehina Arrington. [address] [place] [address] [address], [place], [place], [id number] , [place]. tel: [phone] Referring Provider: Miles Jiménez, [address] [place] [address], [address]. tel:[phone] OFFICE VISIT, EST TELEMEDICINE [facility], [address] [place] [address], [id number] , [place] tel: [phone] [facility] No Information 2 Kelsey Arrington. [address] [place] [address] [address], [place], [place], [id number] , [place]. tel: [phone] Referring Provider: Miles Jiménez, [address] [place] [address], [address]. [phone] OFFICE VISIT, EST TELEMEDICINE [facility], [address], [place], [id number] , [place] tel: [phone] [facility] Back Pain (chief complaint) Radiculopathy, lumbar regionSacroiliiti sSpinal stenosis, lumbar regionMyalgia, other siteLong term (current) use of opiate analgesic 2 Kelsey Arrington. [address] [place] [address] [address], [place], [place], [id number] , [place]. tel: [phone] OFFICE VISIT, EST TELEMEDICINE [facility], [address] [place] [address], [id number] , [place] tel: [phone] [facility] Back Pain (chief complaint) Radiculopathy, lumbar regionSacroiliiti sSpinal stenosis, lumbar regionMyalgia, other siteLong term (current) use of opiate analgesic Jan- 1 Kelsey Arrington. [address] [place] [address] [address], [place], [place], [id number] , [place]. tel: [phone] [facility], [address], [place], [id number] , [place] tel: [phone] [facility] [place] Sacroiliitis Jan-0 1 Eleazar Jackson. [address] [place], [place], [id number] , [place]. tel: [phone] Referring Provider: Miles Jiménez, [address] [place] [address], [address]. [phone] OFFICE VISIT, EST TELEMEDICINE [facility], [address], [place], [id number] , [place] tel: [phone] [facility] Back Pain (chief complaint) Radiculopathy, lumbar regionSpinal stenosis, lumbar regionSacroiliiti sMyalgia, other siteLong term (current) use of opiate analgesic Jan-0 1 Kelsey Arrington. [address] [place] [address] [address], [place], [place], [id number] , [place]. tel:[phone] Referring Provider: Miles Jiménez, [address] [place] [address], [address]. tel:[phone] OFFICE VISIT, EST TELEMEDICINE [facility], [address] [place] [address], [id number] , [place] tel: [phone] [facility] Back Pain (chief complaint) Radiculopathy, lumbar regionSpinal stenosis, lumbar regionSacroiliiti sMyalgia, other siteLong term (current) use of opiate analgesic Dec-0 1 Cole Murphy. [address] [place] [address] [address], [place], [place], [id number] , [place]. tel:[phone] OFFICE VISIT, EST TELEMEDICINE [facility], [address] [place] [address], [id number] , [place] tel:[phone] [facility] Back Pain (chief complaint) Myalgia, other siteSacroiliitisR adiculopathy, lumbar regionSpinal stenosis, lumbar regionLong term (current) use of opiate analgesic Nov- 1 Cole Murphy. [address] [place] [address] [address], [place], [place], [id number] , [place]. tel:[phone] Referring Provider: Miles Jimnéez, [address] [place] [address], [address]. tel:[phone] [facility], [address] [place] [address], [id number] , [place] tel:[phone] [facility] Myalgia, other site Sep-1 1 Cole Murphy. [address] [place] [address] [address], [place], [place], [id number] , [place]. tel:[phone] Referring Provider: Miles Jiménez, [address] [place] [address], [address]. tel:[phone] OFFICE VISIT, EST TELEMEDICINE [facility], [address] [place] [address], [id number] , [place] tel:[phone] [facility] Back Pain (chief complaint) SacroiliitisRadic ulopathy, lumbar regionSpinal stenosis, lumbar regionLong term (current) use of opiate analgesicMyalgia, other site 1 Kelsey Arrington. [address] [place] [address] [address], [place], [place], [id number] , [place]. [phone] Referring Provider: Miles Jiménez, [address] [place] [address], [address]. [phone] OFFICE VISIT, EST TELEMEDICINE [facility], [address] [place] [address], [id number] , [place] tel:[phone] [facility] Back Pain (chief complaint) SacroiliitisRadic ulopathy, lumbar regionSpinal stenosis, lumbar regionLong term (current) use of opiate analgesicMyalgia, other site 1 Kelsey Arrington. [address] [place] [address] [address], [place], [place], [id number] , [place]. tel:[phone] Referring Provider: Miles Jiménez, [address] [place] [address], [address]. [phone] OFFICE VISIT, EST TELEMEDICINE [facility], [address] [place] [address], [id number] , [place] [phone] [facility] Back Pain (chief complaint) SacroiliitisRadic ulopathy, lumbar regionSpinal stenosis, lumbar regionLong term (current) use of opiate analgesicMyalgia, other site 1 Colehina Arrington. [address] [place] [address] [address], [place], [place], [id number] , [place]. [phone] Referring Provider: Miles Jiménez, [address] [place] [address], [address]. tel:[phone] OFFICE VISIT, EST TELEMEDICINE [facility], [address] [place] [address], [id number] , [place] [phone] [facility] Back Pain (chief complaint) SacroiliitisRadic ulopathy, lumbar regionSpinal stenosis, lumbar regionLong term (current) use of opiate analgesicMyalgia, other site James-0 1 Kelsey Arrington. [address] [place] [address] [address], [place], [place], [id number] , [place]. [phone] Referring Provider: Miles Jiménez, [address] [place] [address], [address]. tel:[phone] OFFICE VISIT, EST TELEMEDICINE [facility], [address] [place] [address], [id number] , [place] [phone] [facility] Back Pain (chief complaint) SacroiliitisRadic ulopathy, lumbar regionSpinal stenosis, lumbar regionLong term (current) use of opiate analgesicMyalgia, other site June- 1 Kelsey Arrington. [address] [place] [address] [address], [place], [place], [id number] , [place]. [phone] Referring Provider: Miles Jiménez, [address] [place] [address], [address]. [phone] [facility], [address] [place] [address], [id number] , [place] [phone] [facility] Sacroiliitis Apr-2 1 Eleazar Jackson. [address] [place] [address], [id number] , [place]. [phone] Referring Provider: Miles Jiménez, [address] [place] [address], [address]. tel:[phone] OFFICE VISIT, [facility] TELEMEDICINE [facility], [address] [place] [address], [id number] , [place] [phone] [facility] Back Pain (chief complaint) Radiculopathy, lumbar regionSpinal stenosis, lumbar regionLong term (current) use of opiate analgesicMyalgia, other siteSacroiliitis Apr-0 1 Kelsey Arrington. [address] [place] [address] [address], [place], [place], [id number] , [place]. tel:[phone] Referring Provider: Miles Jiménez, [address] [place] [address], [address]. tel:[phone] OFFICE VISIT, [facility] TELEMEDICINE [facility], [address] [place] [address], [id number] , [place] tel:[phone] [facility] Back Pain (chief complaint) Radiculopathy, lumbar regionSpinal stenosis, lumbar regionLong term (current) use of opiate analgesicMyalgia, other siteSacroiliitis 1 Kelsey Arrington. [address] [place] [address] [address], [place], [place], [id number] , [place]. [phone] Referring Provider: Miles Jiménez, [address] [place] [address], [address]. tel:[phone] OFFICE VISIT, [facility], [address] [place] [address], [id number] , [place] [phone] [facility] Back Pain (chief complaint) Radiculopathy, lumbar regionSpinal stenosis, lumbar regionLong term (current) use of opiate analgesicSacroili itisMyalgia, other site 1 Kelsey Arrington. [address] [place] [address] [address], [place], [place], [id number] , [place]. [phone] Referring Provider: Miles Jiménez, [address] [place] [address], [address]. tel:[phone] [facility], [address] [place] [address], [id number] , [place] tel:[phone] [facility] No Information 1 Kelsey Arrington. [address] [place] [address] [address], [place], [place], [id number] , [place]. [phone] OFFICE/OUTPAT IENT VISIT, [facility], [address] [place] [address], [id number] , [place] tel: [phone] [facility] Back Pain (chief complaint) Radiculopathy, lumbar regionSpinal stenosis, lumbar regionLong term (current) use of opiate analgesicSacroili itisMyalgia, other site 1 Colekayla Arrington. [address] [place] [address] Rd [address], [place], [place], [id number] , [place]. tel:[phone] Referring Provider: Miles Jiménez, [address] [place] [address], [address]. [phone] OFFICE VISIT, EST TELEMEDICINE [facility], [address] [place] [address], [id number] , [place] tel:[phone] [facility] Back Pain (chief complaint) Radiculopathy, lumbar regionSpinal stenosis, lumbar regionLong term (current) use of opiate analgesicSacroili itisMyalgia, other site 0 Colehina Arrington. [address] [place] [address] [address], [place], [place], [id number] , [place]. tel:[phone] Referring Provider: Miles Jiménez, [address] [place] [address], [address]. [phone] [facility], [address] [place] [address], [id number] , [place] [phone] [facility] Radiculopathy, lumbar region 0 Reddy Wheeler. [facility], [address] [facility] [address], [place], [address], [place]. [phone] Referring Provider: Miles Jiménez, [address] [place] [address], [address]. [phone] OFFICE VISIT, EST TELEMEDICINE [facility], [address] [place] [address], [id number] , [place] [phone] [facility] Back Pain (chief complaint) Radiculopathy, lumbar regionSpinal stenosis, lumbar regionLong term (current) use of opiate analgesicSacroili itisMyalgia, other site 0 Kelsey Arrington. [address] [place] [address] [address], [place], [place], [id number] , [place]. tel:[phone] Referring Provider: Miles Jiménez, [address] [place] [address], [address]. tel:[phone] OFFICE VISIT, [facility], [address] [place] [address], [id number] , [place] tel: [phone] [facility] Back Pain (chief complaint) Radiculopathy, lumbar regionSpinal stenosis, lumbar regionLong term (current) use of opiate analgesicSacroili itisMyalgia, other site 0 Cole Murphy. [address] [facility] [address], [place], [place], [id number] , [place]. tel: [phone] Referring Provider: Miles Jiménez, [address] [place] [address], [address]. tel:[phone] OFFICE VISIT, [facility], [address] [place] [address], [id number] , [place] tel: [phone] [facility] Back Pain (chief complaint) Radiculopathy, lumbar regionSpinal stenosis, lumbar regionLong term (current) use of opiate analgesicSacroili itisMyalgia, other site 0 Cole Murphy. [address] [facility] [address], [place], [place], [id number] , [place]. tel: [phone] Referring Provider: Miles Jiménez, [address] [place] [address], [address]. tel:[phone] OFFICE/OUTPAT IENT VISIT, [facility], [address] [place] [address], [id number] , [place] tel: [phone] [facility] Back Pain (chief complaint) Radiculopathy, lumbar regionSpinal stenosis, lumbar regionLong term (current) use of opiate analgesicSacroili itisMyalgia, other site 0 Cole Murphy. [address] [facility] [address], [place], [place], [id number] , [place]. tel:[phone] Referring Provider: Miles Jiménez, [address] [place] [address], [address]. [phone] [facility], [address] [place] [address], [id number] , [place] tel:[phone] [facility] Radiculopathy, lumbar region Aug- 0-202 0 Nava Morelri. [address] [place] [address], [id number] , [place]. tel:[phone] Referring Provider: Miles Jiménez, [address] [place] [address], [address]. [phone] OFFICE VISIT, EST TELEMEDICINE [facility], [address] [place] [address], [id number] , [place] tel:[phone] [facility] Back Pain (chief complaint) Radiculopathy, lumbar regionSpinal stenosis, lumbar regionLong term (current) use of opiate analgesicSacroili itis 0 Kelsey Arrington. [address] [place] [address] [address], [place], [place], [id number] , [place]. tel:[phone] Referring Provider: Miles Jiménez, [address] [place] [address], [address]. [phone] [facility], [address] [place] [address], [id number] , [place] tel:[phone] [facility] Radiculopathy, lumbar region 0 Kelsey Arrington. [address] [place] [address] [address], [facility], [place], [id number] , [place]. tel:[phone] OFFICE VISIT, EST TELEMEDICINE [facility], [address] [place] [address], [id number] , [place] tel:[phone] [facility] Back Pain (chief complaint) Radiculopathy, lumbar regionSpinal stenosis, lumbar regionLong term (current) use of opiate analgesicSacroili itis 2-202 0 Cole Murphy. [address] [facility] [address], [place], [place], [id number] , [place]. tel:[phone] Referring Provider: Miles Jiménez, [address] [place] [address], [address]. [phone] OFFICE VISIT, EST TELEMEDICINE [facility], [address] [place] [address], [id number] , [place] tel:[phone] [facility] Back Pain (chief complaint) Low back painChronic pain syndromeRadiculop athy, lumbar regionSpinal stenosis, lumbar regionLong term (current) use of opiate analgesic 0 Cole Murphy. [address] [place] [address] [address], [place], [place], [id number] , [place]. tel:[phone] [facility], [address] [place] [address], [id number] , [place] tel:[phone] [facility] Low back pain 0 Live Aquino. [address] [place] [address], [id number] , [place]. tel:[phone] Referring Provider: Miles Jiménez, [address] [place] [address], [address]. [phone] OFFICE VISIT, EST TELEMEDICINE [facility], [address] [place] [address], [id number] , [place] tel:[phone] [facility] Back Pain (chief complaint) Chronic pain syndromeRadiculop athy, lumbar regionSpinal stenosis, lumbar regionLong term (current) use of opiate analgesic May-- 0 Kelsey Arrington. [address] [place] [address] [address], [place], [place], [id number] , [place]. tel:[phone] Referring Provider: Miles Jiménez, [address] [place] [address], [address]. tel:[phone] OFFICE VISIT, EST TELEMEDICINE [facility], [address] [place] [address], [id number] , [place] [phone] [facility] Back Pain (chief complaint) Chronic pain syndromeRadiculop athy, lumbar regionSpinal stenosis, lumbar regionLong term (current) use of opiate analgesicLow back pain 0 Kelsey Arrington. [address] [facility] [address], [place], [place], [id number] , [place]. [phone] Referring Provider: Miles Jiménez, [address] [place], [address]. tel:[phone] OFFICE/OUTPAT IENT VISIT, [facility], [address] [place], [place], [id number] , [place] tel:[phone] [facility] Back Pain (chief complaint) Chronic pain syndromeOther intervertebral disc degeneration, lumbar regionRadiculopat hy, lumbar regionSpinal stenosis, lumbar regionEncounter for therapeutic drug level monitoringLong term (current) use of opiate analgesic 0 Kelsey Arrington. [address] [facility] [address], [place], [id number] , [place]. tel:[phone] Referring Provider: Abdifatah Henry, [facility] [address], [place], [address]. [phone] Family History Family Member Type Diagnosis Age At Onset No Information Payers Payer name Insurance type Covered democrat ID Authordereka richmond(s) Blue Cross Blue Omari Garnica BL [id number] Social History Type Description Quantity Date Captured Comments Alcohol Use Details Unknown Caffeine Use Details Unknown Tobacco Use Status Smoking Status No Information Sex Female Chief Complaint And Reason For Visit From encounter dated '05/13/2023 07:46'. low back pain (chief complaint). Description: Severity level is 8. Duration: chronic. The problem is worsening. It occurs persistently. Location of pain is lower back. Reason For Referral Reason For Referral No Information Plan Of Treatment Date Type Action Status Goal Hepatitis C scre ening. Due on due Goal AST (SGOT). Due on due Goal FIT-DNA. Due on due Goal CT-Colonography. Due on due Goal Review Allergy List. Due on due Goal Tobacco Use. Due on due Goal Weight. Due on d ue Goal Unhealthy drug u se screening. Due on due Goal FIT. Due on due Goal Lipid panel. Due on due Goal Update Social Hi story. Due on due Goal HPV. Due on due Goal YARN DYER Paperwork. Due on due Goal PHQ-9. Due on du e Goal Medication Recon ciliation. Due on due Goal Height. Due on d ue Goal Zoster vaccine ( 1st). Due on due Goal DRESSMAKING TEACHER Scanned. Due on due Goal Order Annual PT. Due on due Goal Creatinine. Due on due Goal UDT. Due on due Goal OARS. Due on due Goal ALT (SGPT). Due on due Goal Review Allergy List. Due on due Goal PHQ-9. Due on du e Goal Order Annual PT. Due on due Goal CT-Colonography. Due on due Goal OARS. Due on due Goal Creatinine. Due on due Goal UDT. Due on due Goal DRESSMAKING TEACHER Scanned. Due on due Goal Medication Recon ciliation. Due on due Goal Tobacco Use. Due on due Goal Height. Due on d ue Goal FIT. Due on due Goal ALT (SGPT). Due on due Goal YARN DYER Paperwork. Due on due Goal Lipid panel. Due on due Goal AST (SGOT). Due on due Goal Weight. Due on d ue Goal Update Social Hi story. Due on due Goal Zoster vaccine ( 1st). Due on due Goal FIT-DNA. Due on due Goal Unhealthy drug u se screening. Due on due Goal Hepatitis C scre ening. Due on due Goal HPV. Due on due Goal Lipid panel. Due on due Goal DRESSMAKING TEACHER Scanned. Due on due Goal UDT. Due on due Goal Review Allergy List. Due on due Goal YARN DYER Paperwork. Due on due Goal FIT. Due on due Goal HPV. Due on due Goal AST (SGOT). Due on due Goal ALT (SGPT). Due on due Goal Order Annual PT. Due on due Goal Tobacco Use. Due on due Goal CT-Colonography. Due on due Goal Height. Due on d ue Goal Update Social Hi story. Due on due Goal PHQ-9. Due on du e Goal Creatinine. Due on due Goal OARS. Due on due Goal Hepatitis C scre ening. Due on due Goal Zoster vaccine ( ). Due on due Goal FIT-DNA. Due on due Goal Weight. Due on d ue Goal Medication Recon ciliation. Due on due Goal Unhealthy drug u se screening. Due on due Goal Tobacco cessation counseling completed Goal DRESSMAKING TEACHER Scanned. Due on due Goal UDT. Due on due Goal Zoster vaccine ( ). Due on due Goal ALT (SGPT). Due on due Goal OARS. Due on due Goal PHQ-9. Due on du e Goal Order Annual PT. Due on due Goal FIT. Due on due Goal FIT-DNA. Due on due Goal Lipid panel. Due on due Goal Update Social Hi story. Due on due Goal Medication Recon ciliation. Due on due Goal HPV. Due on due Goal Height. Due on d ue Goal CT-Colonography. Due on due Goal AST (SGOT). Due on due Goal Weight. Due on d ue Goal Hepatitis C scre ening. Due on due Goal YARN DYER Paperwork. Due on due Goal Unhealthy drug u [...] Goal AST (SGOT). Due on due Goal YARN DYER Paperwork. Due on due Goal Creatinine. Due on due Goal DRESSMAKING TEACHER Scanned. Due on due Goal HPV. Due on due Goal Review Allergy List. Due on due Goal PHQ-9. Due on du e Goal Unhealthy drug u se screening. Due on due Goal Update Social Hi story. Due on due Goal Hepatitis C scre ening. Due on due Goal Height. Due on d ue Goal Tobacco Use. Due on due Goal Zoster vaccine ( 1st). Due on due Goal Lipid panel. Due on due Goal Order Annual PT. Due on due Goal Medication Recon ciliation. Due on due Goal FIT. Due on due Goal ALT (SGPT). Due on due Goal UDT. Due on due Goal OARS. Due on due Goal AST (SGOT). Due on due Goal DRESSMAKING TEACHER Scanned. Due on due Goal HPV. Due on due Goal FIT. Due on due Goal Order Annual PT. Due on due Goal YARN DYER Paperwork. Due on due Goal PHQ-9. Due on du e Goal FIT-DNA. Due on due Goal CT-Colonography. Due on due Goal Weight. Due on d ue Goal Height. Due on d ue Goal Review Allergy List. Due on due Goal Update Social Hi story. Due on due Goal Hepatitis C scre ening. Due on due Goal Unhealthy drug u se screening. Due on due Goal Medication Recon ciliation. Due on due Goal Zoster vaccine ( ). Due on due Goal Tobacco Use. Due on due Goal Lipid panel. Due on due Goal Creatinine. Due on due Goal AST (SGOT). Due on due Goal OARS. Due on due Goal YARN DYER Paperwork. Due on due Goal Update Social Hi story. Due on due Goal ALT (SGPT). Due on due Goal Zoster vaccine ( 1st). Due on due Goal Hepatitis C scre ening. Due on due Goal Tobacco Use. Due on due Goal Order Annual PT. Due on due Goal Lipid panel. Due on due Goal FIT. Due on due Goal Creatinine. Due on due Goal CT-Colonography. Due on due Goal DRESSMAKING TEACHER Scanned. Due on 023 due Goal Review Allergy List. Due on due Goal PHQ-9. Due on du e Goal Medication Recon ciliation. Due on due Goal Weight. Due on d ue Goal UDT. Due on due Goal HPV. Due on due Goal FIT-DNA. Due on due Goal Unhealthy drug u se screening. Due on due Goal Height. Due on d ue Goal HPV. Due on due Goal Unhealthy drug u se screening. Due on due Goal Zoster vaccine ( 1st). Due on due Goal CT-Colonography. Due on due Goal Medication Recon ciliation. Due on due Goal AST (SGOT). Due on due Goal YARN DYER Paperwork. Due on due Goal OARS. Due on due Goal Creatinine. Due on due Goal Update Social Hi story. Due on due Goal Height. Due on d ue Goal Weight. Due on d ue Goal FIT. Due on due Goal Hepatitis C scre ening. Due on due Goal FIT-DNA. Due on due Goal Lipid panel. Due on due Goal PHQ-9. Due on du e Goal Review Allergy List. Due on due Goal DRESSMAKING TEACHER Scanned. Due on due Goal UDT. Due on due Goal Tobacco Use. Due on due Goal ALT (SGPT). Due on due Goal Order Annual PT. Due on due Goal OARS. Due on due Goal AST (SGOT). Due on due Goal Lipid panel. Due on due Goal Order Annual PT. Due on due Goal YARN DYER Paperwork. Due on due Goal PHQ-9. Due on du e Goal UDT. Due on due Goal Height. Due on d ue Goal Zoster vaccine ( 1st). Due on due Goal FIT. Due on due Goal Creatinine. Due on due Goal CT-Colonography. Due on due Goal Tobacco Use. Due on due Goal Weight. Due on d ue Goal Medication Recon ciliation. Due on due Goal Hepatitis C scre ening. Due on due Goal ALT (SGPT). Due on due Goal FIT-DNA. Due on due Goal Unhealthy drug u se screening. Due on due Goal Update Social Hi story. Due on due Goal DRESSMAKING TEACHER Scanned. Due on due Goal Review Allergy List. Due on due Goal HPV. Due on due Goal OARS. Due on due Goal Weight. Due on d ue Goal Hepatitis C scre ening. Due on due Goal Unhealthy drug u se screening. Due on due Goal Creatinine. Due on due Goal Height. Due on d ue Goal Tobacco Use. Due on due Goal Review Allergy List. Due on due Goal CT-Colonography. Due on due Goal YARN DYER Paperwork. Due on due Goal AST (SGOT). Due on due Goal PHQ-9. Due on du e Goal ALT (SGPT). Due on due Goal Order Annual PT. Due on due Goal FIT-DNA. Due on due Goal Zoster vaccine ( 1st). Due on due Goal Update Social Hi story. Due on due Goal HPV. Due on due Goal FIT. Due on due Goal Lipid panel. Due on due Goal DRESSMAKING TEACHER Scanned. Due on due Goal UDT. Due on due Goal Medication Recon ciliation. Due on due Goal Height. Due on d ue Goal Weight. Due on d ue Goal FIT-DNA. Due on due Goal Zoster vaccine ( 1st). Due on due Goal Update Social Hi story. Due on due Goal Tobacco Use. Due on due Goal Order Annual PT. Due on due Goal HPV. Due on due Goal CT-Colonography. Due on due Goal Lipid panel. Due on due Goal Review Allergy List. Due on due Goal DRESSMAKING TEACHER Scanned. Due on due Goal YARN DYER Paperwork. Due on due Goal OARS. Due on due Goal AST (SGOT). Due on due Goal UDT. Due on due Goal Creatinine. Due on due Goal Hepatitis C scre ening. Due on due Goal Medication Recon ciliation. Due on due Goal PHQ-9. Due on du e Goal Unhealthy drug u se screening. Due on due Goal ALT (SGPT). Due on due Goal FIT. Due on due Goal UDT. Due on due Goal CT-Colonography. Due on due Goal Weight. Due on d ue Goal AST (SGOT). Due on due Goal Unhealthy drug u se screening. Due on due Goal Update Social Hi story. Due on due Goal Review Allergy List. Due on due Goal Creatinine. Due on due Goal PHQ-9. Due on du e Goal Zoster vaccine ( 1st). Due on due Goal Medication Recon ciliation. Due on due Goal FIT-DNA. Due on due Goal YARN DYER Paperwork. Due on due Goal DRESSMAKING TEACHER Scanned. Due on due Goal OARS. Due on due Goal HPV. Due on due Goal Height. Due on d ue Goal ALT (SGPT). Due on due Goal Hepatitis C scre ening. Due on due Goal Lipid panel. Due on due Goal Order Annual PT. Due on due Goal Tobacco Use. Due on due Goal FIT. Due on due Goal Lipid panel. Due on due Goal Zoster vaccine ( 1st). Due on due Goal Review Allergy List. Due on due Goal FIT. Due on due Goal OARS. Due on due Goal ALT (SGPT). Due on due Goal Hepatitis C scre ening. Due on due Goal YARN DYER Paperwork. Due on due Goal FIT-DNA. Due on due Goal PHQ-9. Due on du e Goal Tobacco Use. Due on due Goal HPV. Due on due Goal Update Social Hi story. Due on due Goal CT-Colonography. Due on due Goal UDT. Due on due Goal Height. Due on d ue Goal DRESSMAKING TEACHER Scanned. Due on due Goal Medication Recon [...] panel. Due on due Goal Zoster vaccine ( 1st). Due on due Goal YARN DYER Paperwork. Due on due Goal HPV. Due on due Goal Creatinine. Due on due Goal Medication Recon ciliation. Due on due Goal DRESSMAKING TEACHER Scanned. Due on due Goal Height. Due [...] Due on d ue Goal Update Social Hi story. Due on due Goal Hepatitis C scre ening. Due on due Goal FIT-DNA. Due on due Goal Update Social Hi story. Due on due Goal Zoster vaccine ( 1st). Due on due Goal Lipid panel. Due on due Goal ALT (SGPT). Due on due Goal DRESSMAKING TEACHER Scanned. Due on due Goal Review Allergy List. Due on due Goal FIT. Due on due Goal AST (SGOT). Due on due Goal UDT. Due on due Goal Hepatitis C scre ening. Due on due Goal CT-Colonography. Due on due Goal Order Annual PT. Due on due Goal Weight. Due on d ue Goal Creatinine. Due on due Goal HPV. Due on due Goal Tobacco Use. Due on due Goal Height. Due on d ue Goal PHQ-9. Due on du e Goal Medication Recon ciliation. Due on due Goal Unhealthy drug u se screening. Due on due Goal OARS. Due on due Goal FIT-DNA. Due on due Goal YARN DYER Paperwork. Due on due Goal DRESSMAKING TEACHER Scanned. Due on due Goal Creatinine. Due on due Goal YARN DYER Paperwork. Due on due Goal Order Annual PT. Due on due Goal ALT (SGPT). Due on due Goal OARS. Due on due Goal UDT. Due on due Goal Weight. Due on d ue Goal FIT. Due on due Goal Hepatitis C scre ening. Due on due Goal Height. Due on d ue Goal Update Social Hi story. Due on due Goal Medication Recon ciliation. Due on due Goal FIT-DNA. Due on due Goal Zoster vaccine ( 1st). Due on due Goal Review Allergy List. Due on due Goal Tobacco Use. Due on due Goal CT-Colonography. Due on due Goal Lipid panel. Due on due Goal HPV. Due on due Goal Unhealthy drug u se screening. Due on due Goal AST (SGOT). Due on due Goal PHQ-9. Due on du e Goal YARN DYER Paperwork. Due on due Goal Hepatitis C scre ening. Due on due Goal Review Allergy List. Due on due Goal FIT-DNA. Due on due Goal ALT (SGPT). Due on due Goal DRESSMAKING TEACHER Scanned. Due on due Goal AST (SGOT). Due on due Goal Creatinine. Due on due Goal UDT. Due on due Goal Height. Due on d ue Goal Tobacco Use. Due on due Goal FIT. Due on due Goal OARS. Due on due Goal Unhealthy drug u se screening. Due on due Goal Zoster vaccine ( 1st). Due on due Goal Order Annual PT. Due on due Goal Update Social Hi story. Due on due Goal HPV. Due on due Goal PHQ-9. Due on du e Goal Lipid panel. Due on due Goal CT-Colonography. Due on due Goal Medication Recon ciliation. Due on due Goal Weight. Due on d ue Goal FIT-DNA. Due on due Goal UDT. Due on due Goal Weight. Due on d ue Goal Tobacco Use. Due on due Goal Hepatitis C scre ening. Due on due Goal DRESSMAKING TEACHER Scanned. Due on due Goal Medication Recon ciliation. Due on due Goal FIT. Due on due Goal PHQ-9. Due on du e Goal ALT (SGPT). Due on due Goal AST (SGOT). Due on due Goal Order Annual PT. Due on due Goal OARS. Due on due Goal YARN DYER Paperwork. Due on due Goal Review Allergy List. Due on due Goal Creatinine. Due on due Goal HPV. Due on due Goal CT-Colonography. Due on due Goal Zoster vaccine ( 1st). Due on due Goal Height. Due on d ue Goal Update Social Hi story. Due on due Goal Unhealthy drug u se screening. Due on due Goal Lipid panel. Due on 023 due Goal ALT (SGPT). Due on due Goal YARN DYER Paperwork. Due on due Goal AST (SGOT). Due on due Goal UDT. Due on due Goal Medication Recon ciliation. Due on due Goal Review Allergy List. Due on due Goal PHQ-9. Due on du e Goal FIT. Due on due Goal FIT-DNA. Due on due Goal OARS. Due on due Goal Hepatitis C scre ening. Due on due Goal Tobacco Use. Due on due Goal Weight. Due on d ue Goal Order Annual PT. Due on due Goal Update Social Hi story. Due on due Goal Creatinine. Due on due Goal HPV. Due on due Goal Zoster vaccine ( ). Due on due Goal Lipid panel. Due on due Goal Unhealthy drug u se screening. Due on due Goal Height. Due on d ue Goal CT-Colonography. Due on due Goal DRESSMAKING TEACHER Scanned. Due on due Goal Lipid panel. Due on due Goal Zoster vaccine ( 1st). Due on due Goal UDT. Due on due Goal ALT (SGPT). Due on due Goal AST (SGOT). Due on due Goal YARN DYER Paperwork. Due on due Goal PHQ-9. Due on du e Goal DRESSMAKING TEACHER Scanned. Due on due Goal OARS. Due on due Goal FIT. Due on due Goal HPV. Due on due Goal Height. Due on d ue Goal Weight. Due on d ue Goal Creatinine. Due on due Goal CT-Colonography. Due on due Goal Update Social Hi story. Due on due Goal Order Annual PT. Due on due Goal Review Allergy List. Due on due Goal Unhealthy drug u se screening. Due on due Goal Tobacco Use. Due on due Goal FIT-DNA. Due on due Goal Hepatitis C scre ening. Due on due Goal Medication Recon ciliation. Due on due Goal Unhealthy drug u se screening. Due on due Goal Order Annual PT. Due on due Goal AST (SGOT). Due on due Goal ALT (SGPT). Due on due Goal OARS. Due on due Goal YARN DYER Paperwork. Due on due Goal Weight. Due on d ue Goal FIT-DNA. Due on due Goal Creatinine. Due on due Goal UDT. Due on due Goal Zoster vaccine ( 1st). Due on due Goal DRESSMAKING TEACHER Scanned. Due on due Goal Lipid panel. Due on due Goal Hepatitis C scre ening. Due on due Goal Tobacco Use. Due on due Goal CT-Colonography. Due on due Goal FIT. Due on due Goal PHQ-9. Due on du e Goal Medication Recon ciliation. Due on due Goal HPV. Due on due Goal Review Allergy List. Due on due Goal Update Social Hi story. Due on due Goal Height. Due on d ue Goal Weight. Due on d ue Goal OARS. Due on due Goal Order Annual PT. Due on due Goal AST (SGOT). Due on due Goal DRESSMAKING TEACHER Scanned. Due on due Goal ALT (SGPT). Due on due Goal UDT. Due on due Goal Creatinine. Due on due Goal Update Social Hi story. Due on due Goal YARN DYER Paperwork. Due on due Goal Lipid panel. Due on due Goal Unhealthy drug u se screening. Due on due Goal Zoster vaccine ( 1st). Due on due Goal Medication Recon ciliation. Due on due Goal PHQ-9. Due on du e Goal Hepatitis C scre ening. Due on due Goal CT-Colonography. Due on due Goal Height. Due on d ue Goal FIT. Due on due Goal Tobacco [...] ciliation. Due on due Goal Hepatitis C scre ening. Due on due Goal CT-Colonography. Due on due Goal HPV. Due on due Goal Review Allergy List. Due on due Goal Zoster vaccine ( 1st). Due on due Goal FIT-DNA. Due on due Goal PHQ-9. Due on du e Goal UDT. Due on due Goal Lipid panel. Due on due Goal AST (SGOT). Due on due Goal Update Social Hi story. Due on due Goal Height. Due on d ue Goal DRESSMAKING TEACHER Scanned. Due on due Goal Weight. Due on d ue Goal ALT (SGPT). Due on due Goal Creatinine. Due on due Goal YARN DYER Paperwork. Due on due Goal Medication Recon ciliation. Due on due Goal Update Social Hi story. Due on due Goal Unhealthy drug u se screening. Due on due Goal DRESSMAKING TEACHER Scanned. Due on due Goal OARS. Due on due Goal ALT (SGPT). Due on due Goal Order Annual PT. Due on due Goal PHQ-9. Due on du e Goal Tobacco Use. Due on due Goal Creatinine. Due on due Goal FIT. Due on due Goal Hepatitis C scre ening. Due on due Goal UDT. Due on due Goal YARN DYER Paperwork. Due on due Goal AST (SGOT). Due on due Goal Height. Due on d ue Goal Zoster vaccine ( 1st). Due on due Goal Weight. Due on d ue Goal CT-Colonography. Due on due Goal Review Allergy List. Due on due Goal FIT-DNA. Due on due Goal HPV. Due on due Goal Lipid panel. Due on due Goal UDT. Due on [...] Order Annual PT. Due on due Goal YARN DYER Paperwork. Due on due Goal DRESSMAKING TEACHER Scanned. Due on due Goal OARS. Due on due Goal Lipid panel. Due on due Goal AST (SGOT). Due on due Goal Creatinine. Due on due Goal FIT-DNA. Due on due Goal Zoster vaccine ( 1st). Due on due Goal Review Allergy List. Due on due Goal Hepatitis C scre ening. Due on due Goal Tobacco Use. Due on due Goal Update Social Hi story. Due on due Goal PHQ-9. Due on du e Goal Zoster vaccine ( 1st). Due on due Goal YARN DYER Paperwork. Due on due Goal Medication Recon ciliation. Due on due Goal Creatinine. Due on due Goal PHQ-9. Due on du e Goal Update Social Hi story. Due on due Goal ALT (SGPT). Due [...] (SGOT). Due on due Goal Hepatitis C scre ening. Due on due Goal FIT-DNA. Due on due Goal Lipid panel. Due on due Goal DRESSMAKING TEACHER Scanned. Due on due Goal Tobacco Use. [...] Creatinine. Due on due Goal Zoster vaccine ( 1st). Due on due Goal DRESSMAKING TEACHER Scanned. Due on due Goal Height. Due on d ue Goal YARN DYER Paperwork. Due on due Goal PHQ-9. Due on du e Goal Unhealthy drug u se screening. Due on due Goal Hepatitis C scre ening. Due on due Goal HPV. Due on due Goal AST (SGOT). Due on due Goal CT-Colonography. Due on due Goal FIT. Due on due Goal FIT-DNA. Due on due Goal Update Social Hi story. Due on due Goal Weight. Due on d ue Goal Order Annual PT. Due on due Goal FIT-DNA. Due on due Goal YARN DYER Paperwork. Due on due Goal Creatinine. Due on due Goal DRESSMAKING TEACHER Scanned. Due on due Goal OARS. Due on due Goal AST (SGOT). Due on due Goal UDT. Due on due Goal PHQ-9. Due on du e Goal ALT (SGPT). Due on due Goal Height. Due on d ue Goal Hepatitis C scre ening. Due on due Goal Update Social Hi story. Due on due Goal Zoster vaccine ( 1st). Due on due Goal FIT. Due on due Goal HPV. Due on due Goal Lipid panel. Due on due Goal CT-Colonography. Due on due Goal Review Allergy List. Due on due Goal Unhealthy drug u se screening. Due on due Goal Medication Recon ciliation. Due on due Goal Tobacco Use. Due on due Goal Lipid panel. Due on due Goal Weight. Due on d ue Goal Zoster vaccine ( 1st). Due on due Goal CT-Colonography. Due on due Goal AST (SGOT). Due on due Goal Review Allergy List. Due on due Goal Creatinine. Due on due Goal ALT (SGPT). Due on due Goal YARN DYER Paperwork. Due on due Goal Order Annual PT. Due on due Goal OARS. Due on due Goal Update Social [employer] story. Due on due Goal DRESSMAKING TEACHER Scanned. Due on due Goal UDT. Due on due Goal Tobacco Use. Due on due Goal Medication Recon ciliation. Due on due Goal Hepatitis C scre ening. Due on due Goal PHQ-9. Due on du e Goal FIT-DNA. Due on due Goal Height. Due on d ue Goal Unhealthy drug u se screening. Due on due Goal FIT. Due on due Goal HPV. Due on due Goal Update Social Hi story. Due on due Goal HPV. Due on due Goal OARS. Due on due Goal Review Allergy List. Due on due Goal Unhealthy drug u se screening. Due on due Goal FIT. Due on due Goal Height. Due on d ue Goal AST (SGOT). Due on due Goal Lipid panel. Due on due Goal Order Annual PT. Due on due Goal Weight. Due on d ue Goal DRESSMAKING TEACHER Scanned. Due on due Goal ALT (SGPT). Due on due Goal PHQ-9. Due on du e Goal CT-Colonography. Due on due Goal Creatinine. Due on due Goal Hepatitis C scre ening. Due on due Goal UDT. Due on due Goal YARN DYER Paperwork. Due on due Goal Zoster vaccine ( 1st). Due on due Goal Medication Recon ciliation. Due on due Goal Tobacco Use. Due on due Goal FIT-DNA. Due on due Goal Medication Recon ciliation. Due on due Goal DRESSMAKING TEACHER Scanned. Due on due Goal PHQ-9. Due on du e Goal Update Social Hi story. Due on due Goal Weight. Due on d ue Goal ALT (SGPT). Due on due Goal OARS. Due on due Goal UDT. Due on due Goal AST (SGOT). Due on due Goal Order Annual PT. Due on due Goal Height. Due on d ue Goal Review Allergy List. Due on due Goal Tobacco Use. Due on due Goal Creatinine. Due on due Goal YARN DYER Paperwork. Due on due Goal AST (SGOT). Due on due Goal OARS. Due on due Goal Tobacco Use. Due on due Goal Medication Recon ciliation. Due on due Goal Height. Due on d ue Goal DRESSMAKING TEACHER Scanned. Due on due Goal Weight. Due on d ue Goal PHQ-9. Due on du e Goal Update Social Hi story. Due on due Goal Creatinine. Due on due Goal UDT. Due on due Goal ALT (SGPT). Due on due Goal Review Allergy List. Due on due Goal YARN DYER Paperwork. Due on due Goal Order Annual PT. Due on due Goal DRESSMAKING TEACHER Scanned. Due on due Goal YARN DYER Paperwork. Due on due Goal Height. Due on d ue Goal OARS. Due on due Goal Tobacco Use. Due on due Goal Update Social Hi story. Due on due Goal AST (SGOT). Due [...] Goal Height. Due on d ue Goal DRESSMAKING TEACHER Scanned. Due on due Goal OARS. Due on due Goal Weight. Due on d ue Goal Creatinine. Due on due Goal AST (SGOT). Due on due Goal YARN DYER Paperwork. Due on due Goal UDT. Due on due Goal Review Allergy List. Due on due Goal Update Social Hi story. Due on due Goal Order Annual PT. Due on due Goal Tobacco Use. Due on due Goal Height. Due on d ue Goal PHQ-9. Due on du e Goal YARN DYER Paperwork. Due on due Goal Order Annual PT. Due on due Goal Tobacco Use. Due on due Goal Update Social Hi story. Due on due Goal OARS. Due on due Goal Weight. Due on d ue Goal DRESSMAKING TEACHER Scanned. Due on due Goal Medication Recon ciliation. Due on due Goal UDT. Due on due Goal ALT (SGPT). Due on due Goal Review Allergy List. Due on due Goal Creatinine. Due on due Goal AST (SGOT). Due on due Goal YARN DYER Paperwork. Due on due Goal Order Annual PT. Due on due Goal DRESSMAKING TEACHER Scanned. Due on due Goal Creatinine. Due on due Goal AST (SGOT). Due on due Goal ALT (SGPT). Due on due Goal OARS. Due on due Goal UDT. Due on due Goal Medication Recon ciliation. Due on due Goal Height. Due on d ue Goal Weight. Due on d ue Goal Tobacco Use. Due on due Goal Update Social Hi story. Due on due Goal PHQ-9. Due on du e Goal Review Allergy List. Due on due Goal OARS. Due on due Goal AST (SGOT). Due on due Goal Medication Recon ciliation. Due on due Goal UDT. Due on due Goal Order Annual PT. Due on due Goal DRESSMAKING TEACHER Scanned. Due on due Goal Weight. Due on d ue Goal Update Social Hi story. Due on due Goal YARN DYER Paperwork. Due on due Goal Tobacco Use. Due on due Goal ALT (SGPT). Due on due Goal Creatinine. Due on due Goal Height. Due on d ue Goal Review Allergy List. Due on due Goal PHQ-9. Due on du e Goal Tobacco Use. Due on due Goal Update Social Hi story. Due on due Goal PHQ-9. Due on du e Goal AST (SGOT). Due on due Goal DRESSMAKING TEACHER Scanned. Due on due Goal Review Allergy List. Due on due Goal OARS. Due on due Goal UDT. Due on due Goal Medication Recon ciliation. Due on due Goal Order Annual PT. Due on due Goal Height. Due on d ue Goal ALT (SGPT). Due on due Goal Weight. Due on d ue Goal Creatinine. Due on due Goal YARN DYER Paperwork. Due on due Goal Creatinine. Due on due Goal Height. Due on d ue Goal Tobacco Use. Due on due Goal AST (SGOT). Due on due Goal DRESSMAKING TEACHER Scanned. Due on due Goal YARN DYER Paperwork. Due on due Goal Update Social Hi story. Due on due Goal UDT. Due on due Goal ALT (SGPT). Due on due Goal Order Annual PT. Due on due Goal Weight. Due on d ue Goal OARS. Due on due Goal Medication Recon ciliation. Due on due Goal PHQ-9. Due on du e Goal Review Allergy List. Due on due Goal Weight. Due on d ue Goal Review Allergy List. Due on due Goal AST (SGOT). Due on due Goal PHQ-9. Due on du e Goal Medication Recon ciliation. Due on due Goal Update Social Hi story. Due on due Goal Height. Due on d ue Goal ALT (SGPT). Due on due Goal Tobacco Use. Due on due Goal Order Annual PT. Due on due Goal OARS. Due on due Goal UDT. Due on due Goal DRESSMAKING TEACHER Scanned. Due on due Goal Creatinine. Due on due Goal YARN DYER Paperwork. Due on due Goal UDT. Due on due Goal Review Allergy List. Due on due Goal YARN DYER Paperwork. Due on due Goal DRESSMAKING TEACHER Scanned. Due on due Goal Medication Recon ciliation. Due on due Goal Creatinine. Due on due Goal Tobacco Use. Due on due Goal Height. Due on d ue Goal AST (SGOT). Due on due Goal Weight. Due on d ue Goal Order Annual PT. Due on due Goal OARS. Due on due Goal Update Social Hi story. Due on due Goal ALT (SGPT). Due on due Goal PHQ-9. Due on du e Goal AST (SGOT). Due on due Goal Creatinine. Due on due Goal YARN DYER Paperwork. Due on due Goal OARS. Due on due Goal Order Annual PT. Due on due Goal ALT (SGPT). Due on due Goal DRESSMAKING TEACHER Scanned. Due on due Goal Weight. Due on d ue Goal Medication Recon ciliation. Due on due Goal UDT. Due on due Goal Tobacco Use. Due on due Goal Update Social Hi story. Due on due Goal Height. Due on d ue Goal PHQ-9. Due on du e Goal Review Allergy List. Due on due Goal OARS. Due on due Goal UDT. Due on due Goal PHQ-9. Due on du e Goal Update Social Hi story. Due on due Goal Height. Due on d ue Goal ALT (SGPT). Due on due Goal Medication Recon ciliation. Due on due Goal Weight. Due on d ue Goal DRESSMAKING TEACHER Scanned. Due on due Goal AST (SGOT). Due on due Goal YARN DYER Paperwork. Due on due Goal Creatinine. Due [...] List. Due on due Goal Update Social Hi story. Due on due Goal Creatinine. Due on due Goal Tobacco Use. Due on due Goal YARN DYER Paperwork. Due on due Goal DRESSMAKING TEACHER Scanned. Due on due Goal Order Annual PT. Due on due Appointment Belkis Manjarrez BOOKED Future Order: Lab Order Drug Tara t Def 22+ Classes (G0483), Ordered on: Ordered History Of Present Illness Encounter Date Complaint History Of Prese nt Illness low back pain Severity level i s 8. Duration: chronic. The problem is worsening. It occurs persistently. Location of pain is lower back. Comments: Belkis richardson resents virtually for a follow up and medication refill regarding ongoing low back pain. Patient reports her lower back pain has been significantly worse since [place].Continues with IV chemotherapy and recent scans predict she has 1 year left to live based on her stage 4 lung cancer progression. Notes she cannot get injections because of her pain and ongoing chemotherapy so her pain has been difficult to manage. Discussed considering a referral to hospice in the future if pain continues to be uncontrolled because of her dx.Reports current medication regimen provides 50-60% pain relief. Continues to have moderate relief with her Oxycodone 10mg, but requests an increase today. She presents 11.5 tabs short today and admits to self-escalation. YARN DYER violation issued. Denies any side effects with current medication. No other concerns today. Comments: Belkis richardson resents virtually for a follow up and medication refill regarding ongoing low back pain. Patient reports her lower back pain (L>R) has been worse since [place]. SIJ joint pain is more bothersome, but she believes a lot of it may be stress-induced. Continues to work.She has recently started a new round of IV chemotherapy and recent scans predict she has 1 year left to live based on her stage 4 lung cancer progression. Completed a PET scan and does not have the reults yet. She has been worried about this. Reports current medication regimen provides 50-60% pain relief. Continues to have relief with her Oxycodone 10mg. Feels her pain is overall managed at this time, but may requests an increase in the future if it continues to worsen. Denies any side effects with current medication. No other concerns today. low back pain Severity level i s 6. Duration: chronic. The problem is worsening. It occurs persistently. Location of pain is lower back. Low back pain Severity level i s 6. Duration: chronic. The problem is fluctuating. It occurs persistently. The client describes the pain as an ache and sharp. Symptoms are aggravated by lifting, housework, prolonged positioning, stairs and stretching. Symptoms are relieved by heat, pain meds/drugs, stretching, bending and changing positions. Comments: Belkis richardson resents for follow up and medication refill regarding ongoing low back pain. Patient reports her lower back pain (L>R) has been fluctuating since [place]. Continues to find relief from L SIJ injection. She has recently started a new round of IV chemotherapy and recent scans predict she has 1 year left to live based on her stage 4 lung cancer progression.Reports she has started to get her hearing back after poor hearing over the last 3 months, but intends to look into getting hearing aids. 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 Continues to have relief with her Oxycodone 10mg. Feels her pain is overall managed at this time. Presents with a small surplus today. Denies any side effects with current medication. No other concerns today. Comments: Belkis richardson resents via [employer] for a virtual follow up and medication refill for ongoing low back pain. Patient reports her lower back pain (L>R) has been stable and at a level 5/10 since [place].S/p repeat left SI joint injection on 12/13/22 reports ~70% benefit, but she believes it didn't work as well as previous ones. She wonders if this could be because of her cancer progression.She begins another round of chemotherapy today and finished radiation about a week ago. States she is unsure of her schedule with her treatment yet. Reports current medication regimen provides 50-60% pain relief. Notes better relief with her Oxycodone 10mg. Denies any side effects with current medication. No other concerns today. Neck Pain The severity of the problem is moderate. Duration: chronic. The problem has not changed. The frequency of pain is constant. Location of pain is lower left back. Comments: Belkis richardson resents via [employer] for a virtual follow up and medication refill for ongoing low back pain. Patient reports her lower back pain has been stable and at a level 5/10 since [place]. Worse on the left side. Repeat TPIs completed last month provided significant relief to her ongoing muscle spasms.S/p repeat left SI joint injection on 12/13/22 reports ~70% benefit, but she believes it didn't work as well as previous ones. She wonders if this could be because of her cancer progression.She completed scans done her brain and lungs recently. Her brain scan was clear but she reports more spots in her lungs. Plans to restart radiation and chemotherapy tomorrow.Reports current medication regimen provides 50-60% pain relief. Denies any side effects with current medication. No other concerns today. Neck Pain The severity of the problem is moderate. Duration: chronic. The problem has not changed. The frequency of pain is constant. Location of pain is lower left back. Neck Pain The severity of the problem is moderate. Duration: chronic. The status of the symptoms are fluctuating. The frequency of pain is constant. The client describes the pain as Aching and Sharp. Aggravating factors include climbing stairs, lifting, housework and prolonged positioning. Relieving factors include heating pad, stretching and changing positions. Pertinent negatives include bladder incontinence. Comments: Belkis richardson resents in clinic today for follow up and medication refill for ongoing low back pain. States lower back pain has been fluctuating and at a level 8/10. Requests repeat TPIs today.Continues with infusions. Her current plan is to complete them every 21 days and have scans done on her brain and lungs in early December to monitor the size of her tumors. May need to start another round of chemotherapy if they have not shrunk.Patient has her repeat left SI joint injections scheduled for later today which she is looking forward to. Approved with oncologist since off chemotherapy for now.Reports current medication regimen provides 50-60% pain relief. [...] stretching, walking and changing positions. Comments: Belkis i s present today for follow up and [...] of pain is lower back. Comments: Belkis bee s a 56 y/o woman here for follow up consult and medication refill regarding chronic low back pain. S/p SI joint injection 11/16/[address] Blakely provided >75% relief; plans to repeat procedure as needed. Pain has been stable since [place] and pain level averages 8/10.Reports that she will have to travel to [place] in January for work; notes that she will also have to travel back to [place] for work as well.Current medication regimen of Corning 5-325mg provides 50-60% pain relief for increased [...] her recent long flight.Continues to use her Corning sparingly which she notices an appreciable benefit. [...] at previous OV. Continues to use her Corning sparingly which she notices an appreciable benefit. [...] completed on August 02, 2021 at the [facility] [place]. She is requesting to repeat injections late October as she is nervous for her 10 hour flight for a work related trip to [place]. Continues to use her Corning sparingly which she notices an appreciable benefit.Patient [...] with prescribed medication. Continues to take her Corning sparingly. This helps her maintain her lowest [...] active recently.Of note, she is traveling to [place] soon.She reports greater than 50% relief with her medication regimen. Denies any side effects. Presents on track with prescribed medication. Continues to take her Corning sparingly. This helps her maintain her lowest [...] with prescribed medication. Continues to take her Corning sparingly. This helps her maintain her lowest [...] ordered at previous OV.Continues to take her Corning sparingly. This helps her maintain her lowest [...] is due to recently traveling back from [place] to [place]. She spent the winter in [place]. Her worst complaint is her left side pain. She requests repeat TPI's as well as a repeat left SI joint injection. Previous TPI's and SI joint injection provided greater than 70% relief for over three months. She also notices functional improvements with the injections.Continues to take her Corning sparingly. This helps her maintain her lowest [...] is charla mooney with us today via [employer] Virtual Visit for follow up and medication refill. She is followed for lower back and SI joint pain. Reports overall pain has been stable since last OV. Notes she continues to benefit from Corning and requests a refill. Of note, she has been able to enjoy her time in [place]. Reports current medication regimen provides 50-60% pain [...] prolonged positioning during her car ride to [place]. Pain has slowly been returning to baseline. Notes she continues to benefit from [employer] and requests a refill. Reports current medication [...] some extent. She looks forward to lumbar EEVLIN scheduled for later today. Of note, patient plans to travel to [place] for 3 months starting on 02/02. She looks forward to being in the warm weather so she can be more active. She inquires about how to fill her medications while she is in [place]. Reports current medication regimen provides 50-60% pain [...] pain meds/drugs and changing positions. Back Pain Duration: chroni c. Symptoms are [...] morning. She will monitor pain levels for buttermaker relief.Reports current medication regimen provides 50% pain [...] SI joint injections. Dr. Henry is requesting [facility] takeover patient's pain management regimen. [...] Assessment Date assessment Malignant neoplasm of pleura Apr impression Patient is diagnosed with stage 4 lung cancer. She has completed a course of radiation and chemotherapy. She started another round of chemotherapy in Feb 2023 and finished her second course of radiation in Jan 2023. She has recently started a new round of IV chemotherapy and recent scans predict she has 1 year left to live based on her stage 4 lung cancer progression. Currently established with [facility] and [facility] assessment Chronic pain syndrome impression Belkis is a 57 y/o fem kenan that presents for chronic low back and bilateral SI joint pain. Worse since MADONNA assessment Sacroiliitis impression Chronic bilateral SI joint pain (L>R), worse since last OV. Forwarded History: S/p repeat LEFT SI joint injections 04/05/[address] Rey with >80% relief for ~3 months. Also reported increased ability to function and complete her ADLs. S/p repeat left SI joint injection on 12/13/22 reports ~70% relief assessment Spinal stenosis, lumbar region M impression Chronic low back rosangela n, worse since last OV. Forwarded/Pertinent History:Lumbar MRI report 04/05/2019 from [facility] previously reviewed and showed:1. L5-S1 advanced disc degeneration with severe left foraminal stenosis.2. L4-5 2mm spondylolisthesis with mild central canal stenosis, facet arthopathy and moderate denerative disc disease.3. L3-4 moderate degenerative disc disease assessment Radiculopathy, lumbar region Apr impression Chronic low back rosangela n, worse since last OV. Occasional radiating sx down LLE. Forwarded History: BL L5-S1 TFESI on 01/19/[address] Jose provided more than 50% relief.Completed PT in the past and continues home exercises with benefit assessment Myalgia, other site impression Ongoing muscle spasms. TPIs have been beneficial in the past assessment FPC (current) use of opiat e analgesic impression Patient presents wit h low back and L>R LE pain. Current regimen relieves 50-60% of the pain, does not cause significant side effects, and increases the patient's daily activity level. The patient presents short with the prescribed medication today. Violation issued and documented on homepage as patient admits to self-escalation due to increased pain r/t her cancer. Reminded patient to take the medications as instructed.Patient is currently prescribed 60 MME per day. Patient has been managing medications appropriately, and is not confused or oversedated during our office visit. Most recent UDT from 03/20/23 reviewed and consistent with current medication regimen. Appropriate to continue with opioid therapy Mental Status Date Cognitive Assessment Orientation - Dow ed to time, place, person, situation. Patient Care Teams Name Effective Dates (start - stop) Status Members No Information
--- OUTSIDE RECORDS SUMMARY | 2023-05-28 07:06 | XMS_ITS | Clinical Summary ---
Author Name Unknown Organization [facility] Address [place], [place] [address] Care Team Providers Care Silk Folder Name Role Phone Andres Trimble MD Primary Care Provider + Ceci Sanders RN, BSN Unavailable [phone] Allergies No known active allergies Medications Medication Sig Dispensed Refills Start Date End Date Status MULTIVITAMIN TAB take 1 tablet by oral route once daily with food 0 12/05/2008 Active ibuprofen (ADVIL; MOTRIN) 200 mg tablet Take 1 tablet by mouth 4 times daily if needed. 0 08/11/2009 Active atorvastatin (LIPITOR) 20 mg tablet 12/23/2018 Active levothyroxine (SYNTHROID) 100 mcg tablet Take 100 mcg by mouth once daily. 01/31/2019 Active acetaminophen (TYLENOL EXTRA STRGTH) 500 mg tablet Twice A Day as needed Active HYDROcodone-acetam inophen, 5-325 mg, (NORCO) per tabletIndications: Chronic left SI joint pain Take 1 tablet by mouth every 6 hours if needed for Pain Max acetaminophen dose: 4000mg in 24 hrs. 24 tablet 04/26/2019 Active amLODIPine (NORVASC) 5 mg tablet Take 5 mg by mouth once daily. Active tiZANidine (ZANAFLEX) 2 mg tablet Take 2 mg by mouth every 6 hours. Active dexAMETHasone (DECADRON) 6 mg tablet Take 6 mg by mouth two times daily with meals. Active levETIRAcetam (KEPPRA) 100 mg/mL oral solution TAKE 5 ML BY MOUTH 2 TIMES A DAY. SENT ALTERNATIVE PATIENT IS HAVING TROUBLE TOLERATING PILLS. Active efinaconazole (Jublia) 10 % topical solutionIndication s:Dermatophytosis of nail Apply topically to affected area(s) once daily. 4 mL 2 02/04/2023 Active Active Problems Problem Noted Date Diagnosed Date Syncope and collapse 08/02/2009 Overview: Occurred 07/31/2009. 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 Tobacco abuse 08/01/2009 Immunizations Name Administration Dates Next Due Influenza A (H1N1), Inactivated (Age >=3 Years) 02/08/2009 Influenza, IIV3 (Age >=3 years) 02/08/2009 Td (Age >=7 Years) 12/14/2003 Family History Medical History Relation Name Comments Heart Disease Mother Stents Relation Name Status Comments Father (Age 70s) aneurysm Mother Alive Social History Tobacco Use Types Packs/Day Years Used Date Smoking Tobacco: Every Day Cigarettes 0.5 20 Smokeless Tobacco: Never Tobacco Cessation:Ready to Q uit: Not Asked; Counseling Given: Not Answered Alcohol Use Standard Drinks/Week Comments Yes 0 (1 standard drink = 0.6 oz pur e alcohol) rarely Social Connections Answer Date Recorded Frequency of Communication with Friends and Fami ly Not on file 02/17/2021 Financial Resource Strain Answer Date R ecorded Difficulty of Paying Living Expenses Not on file 02/17/2021 Difficulty of Paying Living Expenses Not on file 02/17/2021 Sex and Gender Information Value Date Recorded Sex Assigned at Not on file Gender Identity Not on file Sexual Orientation Not on file Obstetrics History Last Filed Vital Signs Vital Sign Reading Time Taken Comments Blood Pressure 120/74 02/04/2023 2:54 PM PROSTHETICS TECHNICIAN Pulse 60 02/04/2023 2:54 PM PROSTHETICS TECHNICIAN Temperature 36.6 ??C (97.8 ??F) 06/17/2022 1 1:40 AM CDT Respiratory Rate 18 06/17/2022 12:2 5 PM CDT Oxygen Saturation 99% 02/04/2023 2:54 PM PROSTHETICS TECHNICIAN Inhaled Oxygen Concentration - - Weight 68.4 kg (150 lb 14.4 oz) 02/04/2023 2:54 PM PROSTHETICS TECHNICIAN Height 170.2 cm (5' 7) 06/14/2022 12:0 4 PM CDT Body Mass Index 23.63 06/14/2022 12:04 PM CDT Plan of Treatment Health Maintenance Due Date Last Done Comments Tdap 10/31/1974 Depression screening for age 12+ 1975 HIV for age 15-65 10/31/1978 Hepatitis C screening for age 18-79 10/31/1981 Colonoscopy through age 75 10/31/2008 Mammogram for age 45-75 02/08/2010 02/08/2009 Zoster (shingles) series for age 50+ (1 of 2) 10/31/2013 Tetanus booster 12/13/2013 12/14/2003 Lipids for age 45-75 02/08/2014 02/08/2009 BMI (ht and wt on same day) for age 18+ 02/05/2020 02/04/2019 Influenza for age 50-64 10/19/2023 02/08/2009, 02/08 Pap test for age 21-65 08/14/2024 , 08/14/2021, 02/16/2009, Additional history exists COVID-19 vaccine series Completed 11/26/19, 10/23/2021, 12/28/2020, Additional history exists Pneumococcal series for age 6-64 Aged Out No longer eligible based on patient's age to complete this topic Procedures Procedure Name Priority Date/Time Associated Diagnosis Comments HPV THIN PREP Routine 08/14/2021 8:15 AM CDT XR MAMMO BILAT SCREEN FFDM (IA) Routine 02/08/2009 9:12 AM PROSTHETICS TECHNICIAN Other Screening Mammogram LIPID PANEL Routine 02/08/2009 8:53 AM PROSTHETICS TECHNICIAN Well [facility] Exam from Last 3 Months or Most Recently Relevant to Health Maintenance Results * HPV HIGH RISK (08/14/2021 8:15 AM CDT) TYPE 16 Negative Negative 08/16/2021 4:43 PM CDT [facility] TYPE 18 Negative Negative 08/16/2021 4:43 PM CDT [facility] OTHER HIGH RISK TYPES Negative Negative 08/16/2021 4:43 PM CDT [facility] Other (Cervical/Vagina l) 08/14/2021 8:15 AM CDT 08/15/2021 7:46 AM CDT Narrative [facility] - 08/16/2021 4:43 PM CDT HPV types 16, 18, 31, 33, 35, 39, 45, 51, 52, 56, 58, 59, 66 and 68 DNA were undetectable or below the pre-set threshold. Methodology: James José Miguel 4800 HPV Test Andres Trimble MD MICROBIOLOGY [facility] [address] [place] [address], [place] * XR MAMMO BILAT SCREEN FFDM (02/08/2009 9:12 AM PROSTHETICS TECHNICIAN) MAMMOGRAM ACR 2 Benign Finding Anatomical Region Laterality Modality BREASTS, Breast Left, Breast Right Bilateral Mammography 02/08/2009 9:12 AM PROSTHETICS TECHNICIAN Narrative 02/08/2009 3:26 PM PROSTHETICS TECHNICIAN Benign findings noted on mammogram. ??For complete description of the mammographic examination, please reference scanned document within [employer]. ?? We are mailing a results letter to the patient. ACR 2 Benign Finding Procedure Note Milo Angel W - 02/08/2009 Benign findings noted on mammogram. For complete description of themammographic examination, please reference scanned document within[facility]. We are mailing a results letter to the patient. ACR 2 Benign Finding Lexi Shirley MD MAMMO * (ABNORMAL) LIPID PANEL (02/08/2009 8:53 AM PROSTHETICS TECHNICIAN) CHOLESTEROL,TOTAL 239(H) 110 - 199 mg/dL [facility] TRIGLYCERIDES 164(H) <150 mg/dL [facility] HDL CHOLESTEROL 60 >40 mg/dL [facility] CHOL/HDL RATIO 3.98 <4.51 [facility] LDL CHOLESTEROL 146(H) <131 mg/dL [facility] PATIENT STATUS Fasting [facility] Blood specimen (specimen) BLOOD SPECIMEN / Unknown 02/08/2009 8:53 AM PROSTHETICS TECHNICIAN 02/08/2009 8:49 AM PROSTHETICS TECHNICIAN Lexi Shirley MD CHEMISTRY [facility] [address] [place] [address] from Last 3 Months or Most Recently Relevant to Health Maintenance Advance Directives * Full Code (Latest Code Status on File) Date Activated Date Inactivated Comments 06/17/2022 10:00 AM 06/17/2022 2:54 PM Question Answer Comments Code Status Discussion: Reviewed Preferences Care Teams Silk Folder Relationship Specialty Start Date End Date Andres Trimble MD [address] [place] [address] PCP - General Family Practice 02/04/19 Ceci Sanders, RN, BSN [address], [place] [address] Nurse Navigator - Oncology Registered Nurse 06/18/22
--- NOTE | 2023-05-28 07:15 | MR_ITS ---
Patient: OMID RIOS Facility:?[facility] Patient ID:?[id number] Site Patient ID:?[id number]. Site :?[id number] Study:?MRI-Head W/ and W/O Cont 15 CC DOTAREM-05/28/2023 10:11:09 AM Ordering Physician:LYN MAGUIRE Final Report: Indication: Lung cancer. Technique: T1 sagittal as well as diffusion, FLAIR and T2 axial sequences were obtained. Post gadolinium T1 sequences were obtained. Contrast: 15 cc Dotarem. Comparison: MRI head 04/29/2023. CT head 05/20/2023. Findings: The following lesions are noted from the post gadolinium series 11 volumetric sequence: 1. Punctate enhancing lesions in the left postcentral gyrus, images 33 and 42, both decreased in size from 04/29/2023. 2. A 4 mm enhancing cortical lesion in the superior aspect of the right cerebellar hemisphere, image 108, decreased in size. 3. A 5 mm lesion with increased precontrast T1 signal along the undersurface of the left occipital lobe, image 100, unchanged. The extent of the nonenhancing edema previously associated with the right cerebellar lesion and the left postcentral gyrus lesions has decreased from 04/29/2023. Signal changes elsewhere in the cerebral white matter compatible with a combination of small vessel ischemic change and treatment related leukoencephalopathy, stable. Mild generalized cerebral atrophy, stable. Grossly normal flow voids are maintained in the directly imaged intracranial vascular structures. The craniovertebral junction is unremarkable, with a patent foramen magnum. Both temporal bones are clear. There is slight membrane thickening in the ethmoid paranasal sinuses. Impression: 1. Improvement in the appearance of the intracranial metastatic disease when compared with 04/29/2023. 2. No new enhancing metastatic lesions are identified. Dictated by Tyler Rich MD @ 05/28/2023 12:58:49 PM Signed by:?Tyler Rich MD @05/28/2023 12:58:49 PM (Electronic Signature)
== END 2023-05-28 07:01 | disposition home or self-care (01) ==
LOC: MRI 07:01
PROVIDERS: PCP Family Medicine; Visit Provider Internal Medicine Hematology & Oncology
DX: C34.90 Malignant neoplasm of unspecified part of unspecified bronchus or lung (principal); G93.9 Disorder of brain, unspecified
CPT/HCPCS: 70553; A9575

== ENCOUNTER 2023-05-29 13:32 | Outpatient (CLI) | payer BC, SELFPAY ==
--- OUTSIDE RECORDS SUMMARY | 2023-05-29 13:35 | XMS_ITS | Encounter Summary ---
Author Name Unknown Organization [facility] Address [address] [place] [address] Care Team Providers Care Reservoir Engineer Name Role Phone Unavailable Primary Care Provider Unavailabl e Encounter Details Date Type Department Care Team (Late st Contact Info) Description 05/12/2023 Orders Only Department of Neurology in [place], [place] [address] [place] [phone] Mohinedr Ariza M.D. [address] [place] [phone] Social History Tobacco Use Types Packs/Day Years Used Date Smoking Tobacco: Every Day Cigarettes 0.5 Smokeless Tobacco: Never Alcohol Use Standard Drinks/Week Comments Not Currently 0 (1 standard drink = 0.6 oz pur e alcohol) [facility] Utilities Answer Date Recorded In the past 12 months has [facility] [employer], gas, oil, or water [employer] threatened to shut off services in your [...] your living situation today? I have a [facility] place to live 05/07/2023 Sex and Gender Information Value Date Recorded Sex Assigned at Female 05/07/2023 9:41 AM CDT Gender Identity Female 05/07/2023 9:41 AM CDT Sexual Orientation Straight 05/07/2023 9: 41 AM CDT documented as of this encounter Plan of Treatment Upcoming Encounters Date Type Department Care Team (Latest Contact Info) Description 05/30/2023 8:00 AM CDT Telemedicine Department of Oncology in [place], [place] [address] [place] [phone] Mohinder Arzia M.D. [address] [place] [phone] 06/19/2023 2:00 PM CDT Appointment Department of Neurology in [place], [place] [address] [place] [phone] Darion Heaton M.D. [address] [place] [phone] Discharge Disposition: Home or Self Care 06/20/2023 10:00 AM CDT Comprehensive Visit Department of Neurology in [place], [place] [address] [place] [phone] Ej Senior M.B.B.S. [address] [place] [phone] 07/07/2023 1:15 PM CDT Clinical Communication Virtual Review in [place], [place] 200 [place] [address] 07/09/2023 11:15 AM CDT Appointment Department of Radiology, [facility] in [place], [place] [address] [place] [phone] Mohinder Ariza M.D. [address] [place] [phone] 07/09/2023 4:00 PM CDT Office Visit Department of Neurology in [place], [place] [address] [place] [phone] Mohinder Ariza M.D. [address] [place] [phone] documented as of this encounter Visit Diagnoses Not on filedocumented in this encounter
--- OUTSIDE RECORDS SUMMARY | 2023-05-29 13:35 | XMS_ITS | Encounter Summary ---
Author Name Unknown Organization [facility] Address [address] [place] [address] Care Team Providers Care Director Of Financial Aid Name Role Phone Unavailable Primary Care Provider Unavailabl e Reason for Visit * Reason Onset Date Comments Update on Seizure/Episodes 05/20/2023 Encounter Details Date Type Department Care Team (Latest Contact Info) Description 05/20/2023 Clinical Communication Department of Neurology in [place], [place] [address] [place] [phone] Lucy Bueno, RDanielNDaniel [address] [place] [phone] Update on Seizure/Episodes Social History Tobacco Use Types Packs/Day Years Used Date Smoking Tobacco: Every Day Cigarettes 0.5 Smokeless Tobacco: Never Alcohol Use Standard Drinks/Week Comments Not Currently 0 (1 standard drink = 0.6 oz pur e alcohol) [facility] Utilities Answer Date Recorded In the past 12 months has [facility] [email or web address], gas, oil, or water [employer] threatened to shut off services in your [...] your living situation today? I have a [facility] place to live 05/07/2023 Sex and [...] 05/27 and PET on 05/28 both in [place]. She has a video visitwith Dr. Ariza on 05/29. She has another appointment for wax removal from ear with local ENT on 05/28. I did review with Dr. Heaton in Dr. Ariza's absence. He agreed with the plan to have CT without contrast locally and have the images electronically pushed to us and the report faxed to [phone] Ariza. The EEG results should be faxed to us as well. No change in medication at this time. I will have Dr. Ariza's medical technical writer watch for the results and then review [...] AM CDT Telemedicine Department of Oncology in [place], [place] [address] [place] [phone] Mohinder Ariza M.D. [address] [place] [phone] 06/19/2023 2:00 PM CDT Appointment Department of Neurology in [address] [phone] Darion Heaton M.D. [address] [place] [phone] Discharge Disposition: Home or Self Care 06/20/2023 10:00 AM CDT Comprehensive Visit Department of Neurology in [address] [phone] Ej Senior M.B.B.S. [address] [place] [phone] 07/07/2023 1:15 PM CDT Clinical Communication Virtual Review in [place], [place] 200 [place] [address] 07/09/2023 11:15 AM CDT Appointment Department of Radiology, [facility] in [place], [place] [address] [place] [phone] Mohinder Ariza M.D. [address] [place] [phone] 07/09/2023 4:00 PM CDT Office Visit Department of Neurology in [address] [phone] Mohinder Ariza M.D. [address] [place] [phone] documented as of this encounter Visit Diagnoses Not on filedocumented in this encounter
--- OUTSIDE RECORDS SUMMARY | 2023-05-29 13:35 | XMS_ITS | Encounter Summary ---
Author Name Unknown Organization [facility] Address [address] [place] [address] Care Team Providers Care Insurance Application Investigator Name Role Phone Unavailable Primary Care Provider Unavailabl e Encounter Details Date Type Department Care Team (Latest Contact Info) Description 05/28/2023 9:00 AM CDT Clinical Communication Virtual Review in [place], [place] [address] [place], [place] [phone] Social History Tobacco Use Types Packs/Day Years Used Date Smoking Tobacco: Every Day Cigarettes 0.5 Smokeless Tobacco: Never Tobacco Cessation:Ready to Q uit: Not Asked; Counseling Given: Not Answered Alcohol Use Standard Drinks/Week Comments Not Currently 0 (1 standard drink = 0.6 oz pur e alcohol) [facility] Utilities Answer Date Recorded In the past 12 months has th e electric, gas, oil, or water [employer] threatened to shut off services in your [...] Date Recorded Employment status Working with temporary [employer] 05/07/2023 Housing Stability Answer Date Recorded What is your living situation today? I have a [facility] place to live 05/07/2023 Sex and Gender Information Value Date Recorded Sex Assigned at Female 05/07/2023 9:41 AM CDT Gender Identity Female 05/07/2023 9:41 AM CDT Sexual Orientation Straight 05/07/2023 9: 41 AM CDT documented as of this encounter Plan of Treatment Upcoming Encounters Date Type Department Care Team (Latest Contact Info) Description 05/30/2023 8:00 AM CDT Telemedicine Department of Oncology in [place], [place] [address] [place] [phone] Mohinder Ariza M.D. [address] [place] [phone] 06/19/2023 2:00 PM CDT Appointment Department of Neurology in [place], [place] [address] [place] [phone] Darion Heaton M.D. [address] [place] [phone] Discharge Disposition: Home or Self Care 06/20/2023 10:00 AM CDT Comprehensive Visit Department of Neurology in [place], [place] [address] [place] [phone] Ej Senior M.B.B.S. [address] [place] [phone] 07/07/2023 1:15 PM CDT Clinical Communication Virtual Review in [place], [place] 200 [place] [address] 07/09/2023 11:15 AM CDT Appointment Department of Radiology, [facility] in [place], [place] [address] [place] [phone] Mohinder Ariza M.D. [address] [place] [phone] 07/09/2023 4:00 PM CDT Office Visit Department of Neurology in [address] [phone] Mohinder Ariza M.D. [address] [place] [phone] documented as of this encounter Visit Diagnoses Not on filedocumented in this encounter
--- OUTSIDE RECORDS SUMMARY | 2023-05-29 13:35 | XMS_ITS | Referral Summary ---
Author Name Unknown Organization [facility] Address [address] [place] [address] Care Team Providers Care Phosphorus Processing Supervisor Name Role Phone Unavailable Primary Care Provider Unavailabl e Source Comments Patient records contain information from all sites at [facility]. For routine questions regarding patient records, call [phone] during business hours, M-F 8:00 AM - 5:00 PM Central Time. Record requests for emergency care only can be directed to [phone] at any time.[facility] Encounters Date Type Department Care Team Description 05/28/2023 9:00 AM CDT Clinical Communication Virtual Review in [place], [place] 200 [place] [address] 05/23/2023 Orders Only Department of Neurology in [place], [place] [address] [place] [phone] Darion Heaton M.D. Secondary Malignant Neoplasm Brain (HCC) (Primary Dx); Seizure (HCC) 05/22/2023 Orders Only Department of Neurology in [place], [place] [address] [place] [phone] Darion Heaton M.D. 05/20/2023 Clinical Communication Department of Neurology in [place], [place] [address] [place] [phone] Lucy Bueno R.N. Update on Seizure/Episodes 05/12/2023 Refill Department of Neurology in [place], [place] [address] [place] [phone] Mohinder Ariza M.D. Med Refill 05/12/2023 Orders Only Department of Neurology in [place], [place] [address] [place] [address] Mohinder Ariza M.D. 05/12/2023 Refill Department of Neurology in [place], [place] [address] [place] [address] Mohinder Ariza M.D. Med Refill 05/09/2023 9:00 AM CDT - 05/09/2023 12:56 PM CDT Hospital Encounter Department of Radiation Oncology in [address] [address] Marnie Schultz APRN, C.N.P., D.N.P. Geraldine Chang, RHalima. 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 05/08/2023 Orders Only Department of Neurology in [place], [place] [address] [place] [address] Mohinder Ariza M.D. 05/08/2023 Documentation Department of Neurology in [place], [place] [address] [place] [phone] Mohinder Ariza M.D. 05/08/2023 Clinical Communication Department of Neurology in [place], [place] [address] [place] [address] Mohinder Ariza M.D. 05/08/2023 9:00 AM CDT - 05/08/2023 3:06 PM CDT Hospital Encounter Department of Radiation Oncology in [address] [address] Angel Luis Esquivel M.D. Secondary Malignant Neoplasm Brain (HCC) 05/08/2023 8:05 AM CDT Hospital Encounter Department of Radiation Oncology in [address] [address] Radha Patterson M.D. 05/07/2023 11:53 AM CDT - 05/07/2023 4:36 PM CDT Hospital Encounter Department of Radiation Oncology in [address] [address] Radha Patterson M.D. Secondary Malignant Neoplasm Brain (HCC) 05/07/2023 11:53 AM CDT Hospital Encounter Department of Radiation Oncology in [address] [address] Rdaha Patterson M.D. 05/06/2023 Refill Department of Neurology in [address] [address] Mohinder Ariza M.D. Med Refill 05/06/2023 Clinical Communication Department of Neurology in [address] [address] Mohinder Ariza M.D. Prescription change and directions 05/06/2023 Clinical Communication Department of Radiation Oncology in [address] [address] Jane Tobar P.A.-C., M.S. 05/06/2023 4:00 PM CDT Hospital Encounter Department of Radiation Oncology in [address] [address] Radha Patterson M.D. 05/02/2023 Clinical Communication Department of Neurology in [place], [place] [address] [place] [phone] Mohinder Ariza M.D. levetiracetam 05/02/2023 11:40 AM CDT Telemedicine Department of Oncology in [place], [place] [address] [place] [phone] Mohinder Ariza M.D. Secondary Malignant Neoplasm Brain (HCC) (Primary Dx); Seizure (HCC) 05/01/2023 Orders Only Department of Neurology in [address] [place] [address] Mohinder Ariza M.D. 05/01/2023 Orders Only Department of Neurology in [place], [place] [address] [place] [address] Mohinder Ariza M.D. 05/01/2023 8:30 AM CDT - 05/01/2023 3:46 PM CDT Hospital Encounter Department of Radiation Oncology in [address] [address] Radha Patterson M.D. Secondary Malignant Neoplasm Brain (HCC) 05/01/2023 7:41 AM CDT - 05/01/2023 8:29 AM CDT Hospital Encounter Department of Radiation Oncology in [address] [address] Radha Patterson M.D. 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 Secondary Malignant Neoplasm Brain (HCC) 04/30/2023 Orders Only Department of Radiation Oncology in [address] [address] Radha Patterson M.D. Secondary Malignant Neoplasm Brain (HCC) (Primary Dx) 04/29/2023 Clinical Communication Department of Radiation Oncology in [address] [address] Jane Tobar P.A.-C., M.S. 04/29/2023 Orders Only Department of Radiation Oncology in [address] [address] Jane Tobar P.A.-C., M.S. 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 03/31/2023 Refill Department of Neurology in [place], [place] [address] [place] [address] Mohinder Ariza M.D. Med Refill 02/27/2023 Refill Department of Radiation Oncology in [place], [place] [address] [place] [address] Marnie Schultz APRN, C.N.P., D.N.P. Med Change [...] in PM 35 tablet 0 3 Active Additional Information Patient not taking.Reported on 05/28/2023 amLODIPine (NORVASC) 5 mg tablet Take 5 [...] a day. 60 tablet 0 3 Active Additional Information Patient not taking.Reported on 05/28/2023 Advair Diskus 250-50 mcg/act diskus inhaler Inhale [...] AFTER USE. 100 mL 1 4 Active Additional Information Patient not taking.Reported on 05/28/2023 dexAMETHasone (DECADRON) 2 mg tablet Take 1 tablet (2 mg total) by mouth 2 (two) times a day. 20 tablet 0 4 Active Additional Information Patient not taking.Reported on 05/07/2023 levETIRAcetam (KEPPRA) 100 mg/mL solutionIndication s:Secondary Malignant Neoplasm Brain (HCC) Take 15 mL (1,500 mg total) by mouth 2 (two) times a day. 1000 mL 10 4 Active Additional Information Patient taking differently: 17.5 mLoral 2 times daily, Reported on 05/28/2023 dexAMETHasone (DECADRON) 4 mg tablet Take 2 tablets (8 mg total) by mouth 2 (two) times a day for 5 days, THEN 1 tablet (4 mg total) 2 (two) times a day for 14 days. Then call MD for additional instructions.. 60 tablet 0 4 024 Active Additional Information Patient not taking.Reported on 05/28/2023 omeprazole (PriLOSEC) [address] capsule Take 1 capsule (20 mg total) by mouth every morning before breakfast. 30 capsule 1 4 Active busPIRone (BUSPAR) 10 mg tablet Take 1 tablet by mouth 3 (three) times a day with meals. 0 4 Active dexAMETHasone (DECADRON) 6 mg tablet [...] mouth 2 (two) times a day. 0 024 Discontinued dexAMETHasone (DECADRON) 2 mg tablet Take [...] (two) times a day. 60 tablet 4 Discontinued levETIRAcetam (KEPPRA) 100 mg/mL solution Take [...] (two) times a day. 600 mL 4 03/21/2 024 Discontinued(Re order) dexAMETHasone (DECADRON) 4 mg [...] 0.6 oz pur e alcohol) [facility] Utilities Answer Date Recorded In the past 12 months has th e [employer], gas, oil, or water [employer] threatened to shut off services in your [...] Date Recorded Employment status Working with temporary [employer] 05/07/2023 Housing Stability Answer Date Recorded What is your living situation today? 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 [address] [place] [phone] 06/19/2023 2:00 PM CDT Appointment Department of Neurology in [place], [place] [address] [place] [phone] Darion Heaton M.D. [address] [place] [phone] Discharge Disposition: Home or Self Care 06/20/2023 10:00 AM CDT Comprehensive Visit Department of Neurology in [place], [place] [address] [place] [phone] Ej Senior M.B.B.S. [address] [place] [phone] 07/07/2023 1:15 PM CDT Clinical Communication Virtual Review in [place], [place] 200 [place] [address] 07/09/2023 11:15 AM CDT Appointment Department of Radiology, [facility] in [place], [place] [address] [place] [phone] Mohinder Ariza M.D. [address] [place] [phone] 07/09/2023 4:00 PM CDT Office Visit Department of Neurology in [place], [place] [address] [place] [phone] Mohinder Ariza M.D. [address] [place] [phone] Medical Devices Implanted Type Area Putty And Caulking Supervisor Device Identifier Shelf Expiration Date Model / Serial / Lot Ankle Implant Ankle Implant Right: Ankle Description:hardware Procedures Procedure Name Priority Date/Time Associated Diagnosis Comments OUTSIDE MR NEURO Routine 05/28/2023 7:[address] NEURO Routine 05/20/2023 3:35 PM [...] OUTSIDE CT BODY Routine 04/10/2023 7:45 AM ELEVATING GRADER OPERATOR from Last 3 Months Results * MR head/brain wo/w con-Outside MR Neuro (05/28/2023 7:25 AM CDT) Only the most recent of2 resultswithin the time period is included. Narrative IIIN - 05/28/2023 2:54 PM CDT This order has been created and auto-finalized to support the import of outside images. If available, original interpretation can be found on the Media Tab in Chart Review, in Document Viewer, or as an image in QREADS. If a re-interpretation or overread is required please follow defined workflow. ?? Provider Not In System IM MRI PROCEDURE S Performing Organization Address [facility] de Phone Number IIMS NA * CT HEAD/BRAIN WO CON-Outside CT Neuro [...] System IMG CT PROCEDURES Performing Organization Address [facility]/State/ZIP Co de Phone Number IIMS NA * Aria Course Complete Treatment Information [...] Elapsed Days 2 BRUNO ARIA Reference Point [id number] BRUNO ARIA Dosage Given to Date cGy 2700 BRUNO ARIA Plan ID [id number] BRUNO ARIA Fractions Treated to Date 3 BRUNO ARIA Planned Total Fractions 3 BRUNO ARIA Prescribed Dose Per Fraction 900 BRUNO ARIA Prescription Dose in cGy 2700 BRUNO ARIA Plan Primary Reference Point [id number] BRUNO ARIA 05/08/2023 8:51 AM CDT Provider Not In System RADIATION ONCOLOG Y ORDERABLES BRUNO TRISTON na * Aria Daily Treatment Information (05/08/2023 8:51 AM CDT) Only the most recent of3 resultswithin the time period is included. Course ID [id number] sSRT BRUNO ARIA Course Start Date 4 12:50 CDT BRUNO ARIA First Treatment Date 4 16:26 CDT BRUNO ARIA Last Treatment Date 4 08:51 CDT BRUNO ARIA Treatment Elapsed Days 2 BRUNO ARIA Reference Point [id number] BRUNO ARIA Dosage Given to Date cGy 2700 BRUNO ARIA Session Dosage Given 900 BRUNO ARIA Plan ID [id number] BRUNO ARIA Fractions Treated to Date 3 BRUNO ARIA Planned Total Fractions 3 BRUNO ARIA Prescribed Dose Per Fraction 900 BRUNO ARIA Prescription Dose in cGy 2700 BRUNO ARIA Plan Primary Reference Point [id number] BRUNO ARIA 05/08/2023 8:51 AM CDT Provider [...] RADIATION ONCOLOG Y ORDERABLES Performing Organization Address City/[facility]/ZIP Co de Phone Number DAMION contreras * Interpretation of Outside MR Head (04/30/2023 [...] subtle enhancement in the left temporal lobe (). Stable residual enhancement in the right lateral cerebellar hemisphere, left parietal postcentral gyrus with associated encephalomalacia, and left posterior temporal lobe. Scattered T2/flair hyperintensities compatible with chronic microvascular disease. No acute infarct. Preserved flow voids. Unchanged enlargement of the extraocular muscles. Partial opacification of bilateral mastoids. Radha Patterson M.D. IMG MRI PROCEDURE S * CT chest abdomen pelv w con-Outside CT Body (04/10/2023 7:45 AM ELEVATING GRADER OPERATOR) Narrative IIMS - 05/01/2023 9:10 AM CDT This order [...]
--- OUTSIDE RECORDS SUMMARY | 2023-05-29 13:35 | XMS_ITS | Encounter Summary ---
Author Name Unknown Organization [facility] Address [address] [place] [address] Care Team Providers Care Music Composition Teacher Name Role Phone Unavailable Primary Care Provider Unavailabl e Encounter Details Date Type Department Care Team (Late st Contact Info) Description 05/22/2023 Orders Only Department of Neurology in [place], [place] [address] [place] [address] Darion Heaton M.D. [address] [place] [address] Social History Tobacco Use Types Packs/Day Years Used Date Smoking Tobacco: Every Day Cigarettes 0.5 Smokeless Tobacco: Never Alcohol Use Standard Drinks/Week Comments Not Currently 0 (1 standard drink = 0.6 oz pur e alcohol) [facility] Utilities Answer Date Recorded In the past 12 months has [facility] [employer], gas, oil, or water company threatened [...] your living situation today? I have a [facility] place to live 05/07/2023 Sex and Gender Information Value Date Recorded Sex Assigned at Female 05/07/2023 9:41 AM CDT Gender Identity Female 05/07/2023 9:41 AM CDT Sexual Orientation Straight 05/07/2023 9: 41 AM CDT documented as of this encounter Plan of Treatment Upcoming Encounters Date Type Department Care Team (Latest Contact Info) Description 05/30/2023 8:00 AM CDT Telemedicine Department of Oncology in [place], [place] [address] [place] [phone] Mohinder Ariza M.D. [address] [place] [phone] 06/19/2023 2:00 PM CDT Appointment Department of Neurology in [place], [place] [address] [place] [phone] Darion Heaton M.D. [address] [place] [phone] Discharge Disposition: Home or Self Care 06/20/2023 10:00 AM CDT Comprehensive Visit Department of Neurology in [place], [place] 200 [place] [phone] Ej Senior M.B.B.S. [address] [place] [phone] 07/07/2023 1:15 PM CDT Clinical Communication Virtual Review in [place], [place] [address] [place] [address] 07/09/2023 11:15 AM CDT Appointment Department of Radiology, [facility] in [place], [place] [address] [place] [phone] Mohinder Ariza M.D. [address] [place] [phone] 07/09/2023 4:00 PM CDT Office Visit Department of Neurology in [place], [place] [address] [place] [phone] Mohinder Ariza M.D. [address] [place] [phone] documented as of this encounter Visit Diagnoses Not on filedocumented in this encounter
--- OUTSIDE RECORDS SUMMARY | 2023-05-29 13:35 | XMS_ITS | Encounter Summary ---
Author Name Unknown Organization [facility] Address [address] [place] [address] Care Team Providers Care Medical Services Coordinator Name Role Phone Unavailable Primary Care Provider Unavailabl e Reason for Referral * Outpatient (Routine) - Authorized Specialty Diagnoses / Procedures Referred By Contac t Referred To Contact Diagnoses Secondary Malignant Neoplasm Brain (HCC) Seizure (HCC) Procedures EEG routine - awake and sleep Darion Heaton M.D. 200 [place] [address] [facility] Referral ID Status Reason Start Date Expiration Date V isits Requested Visits Authorized [id number] Authorized 05/23/2023 05/22/2024 1 1 * Outpatient (Routine) - Authorized Specialty Diagnoses / Procedures Referred By Randy christiansen Referred To Contact Neurology Diagnoses Secondary Malignant Neoplasm Brain (HCC) Seizure (HCC) Darion Heaton M.D. 200 [place] [address] [facility] Referral ID Status Reason Start Date Expiration Date V isits Requested Visits Authorized [id number] Authorized 05/23/2023 11/21/2024 1 1 Encounter Details Date Type Department Care Team (Late st Contact Info) Description 05/23/2023 Orders Only Department of Neurology in [place], [place] [address] [place] [phone] Darion Heaton M.D. 200 [place] [address] Secondary Malignant Neoplasm Brain (HCC) (Primary Dx); Seizure (HCC) Social History Tobacco Use Types Packs/Day Years Used Date Smoking Tobacco: Every Day Cigarettes 0.5 Smokeless Tobacco: Never Alcohol Use Standard Drinks/Week Comments Not Currently 0 (1 standard drink = 0.6 oz pur e alcohol) [facility] Utilities Answer Date Recorded In the past 12 months has e [employer], gas, oil, or water [employer] threatened to shut off services in your [...] your living situation today? I have a [facility] place to live 05/07/2023 Sex [...] AM CDT Telemedicine Department of Oncology in [place], [place] [address] [place] [phone] Mohinder Ariza M.D. [address] [place] [phone] 06/19/2023 2:00 PM CDT Appointment Department of Neurology in [place], [place] [address] [place] [phone] Darion Heaton M.D. [address] [place] [phone] Discharge Disposition: Home or Self Care 06/20/2023 10:00 AM CDT Comprehensive Visit Department of Neurology in [place], [place] [address] [place] [phone] Ej Senior M.B.B.S. [address] [place] [phone] 07/07/2023 1:15 PM CDT Clinical Communication Virtual Review in [place], [place] 200 [place] [address] 07/09/2023 11:15 AM CDT Appointment Department of Radiology, [facility] in [place], [place] [address] [place] [phone] Mohinder Ariza M.D. [address] [place] [phone] 07/09/2023 4:00 PM CDT Office Visit Department of Neurology in [place], [place] [address] [place] [phone] Mohinder Ariza M.D. [address] [place] [phone] Scheduled Orders Name Type Priority Associated Diagnoses [...]
--- OUTSIDE RECORDS SUMMARY | 2023-05-29 13:35 | XMS_ITS ---
Author Name Unknown Organization [facility] Address [address] [place] [address] Care Team Providers Care Cover Creaser Name Role Phone Unavailable Primary Care Provider Unavailabl e Active Problems Problem Noted Date Diagnosed Date Secondary Malignant Neoplasm Brain 06/20/2022 Malignant Neoplasm Of Lung Small Cell Right 05/2022 Current Oncology Plans No current plan information found. Past Plans No past plan information found. Radiation Treatments * Plan Last Treated On Elapsed Days Fractions Treated Prescribed Fraction Dose Prescribed Total Dose [id number] 05/08/2023 2 3 of 3 900 cGy 2,700 cGy [id number] 02/03/2023 13 10 of 10 300 cGy 3,000 cG y [id number] 01/27/2023 6 5 of 5 400 cGy 2,000 cG y [id number] 07/02/2022 11 10 of 10 300 cGy 3,000 cGy Reference Point Last Treated On Elapsed Days Session Dose Total Dose [id number] 05/08/2023 2 900 cGy 2,700 cGy [id number] 02/03/2023 13 300 cGy 3,000 cG y [id number] 01/27/2023 6 400 cGy 2,000 cGy [id number] 07/02/2022 11 300 cGy 3,000 cGy
--- OUTSIDE RECORDS SUMMARY | 2023-05-29 13:35 | XMS_ITS ---
Author Name Unknown Organization [facility] Address [address] [place] [address] Care Team Providers Care Laster Hand Name Role Phone Unavailable Unavailable Unavailable Surgery Details Not on file Complications Check Surgery Details section. Procedure Estimated Blood Loss Check Surgery Details section. Procedure Findings Check Surgery Details section. Procedure Specimens Taken Check Surgery Details section.
--- OUTSIDE RECORDS SUMMARY | 2023-05-29 13:35 | XMS_ITS | Encounter Summary ---
Author Name Unknown Organization [facility] Address [address] [place] [address] Care Team Providers Care Inspector Eyeglass Frames Name Role Phone Unavailable Primary Care Provider Unavailabl e Reason for Visit * Reason Comments Med Refill Encounter Details Date Type Department Care Team ([facility] st Contact Info) Description 05/12/2023 Refill Department of Neurology in [place], [place] [address] [place] [phone] Mohinder Ariza M.D. [address] [place] [phone] Med Refill Social History Tobacco Use Types Packs/Day Years Used Date Smoking Tobacco: Every Day Cigarettes 0.5 Smokeless Tobacco: Never Alcohol Use Standard Drinks/Week Comments Not Currently 0 (1 standard drink = 0.6 oz pur e alcohol) [facility] Utilities Answer Date Recorded In the past 12 months has [facility] [employer], gas, oil, or water [employer] threatened to shut off services in your [...] your living situation today? I have a [facility] place to live 05/07/2023 Sex and Gender Information Value Date Recorded Sex Assigned at Female 05/07/2023 9:41 AM CDT Gender Identity Female 05/07/2023 9:41 AM CDT Sexual Orientation Straight 05/07/2023 9: 41 AM CDT documented as of this encounter Plan of Treatment Upcoming Encounters Date Type Department Care Team (Latest Contact Info) Description 05/30/2023 8:00 AM CDT Telemedicine Department of Oncology in [place], [place] [address] [place] [phone] Mohinder Ariza M.D. [address] [place] [phone] 06/19/2023 2:00 PM CDT Appointment Department of Neurology in [place], [place] [address] [place] [phone] Darion Heaton M.D. [address] [place] [phone] Discharge Disposition: Home or Self Care 06/20/2023 10:00 AM CDT Comprehensive Visit Department of Neurology in [place], [place] [address] [place] [phone] Ej Senior M.B.B.S. [address] [place] [phone] 07/07/2023 1:15 PM CDT Clinical Communication Virtual Review in [place], [place] 200 [place] [address] 07/09/2023 11:15 AM CDT Appointment Department of Radiology, [facility] in [place], [place] [address] [place] [phone] Mohinder Ariza M.D. [address] [place] [phone] 07/09/2023 4:00 PM CDT Office Visit Department of Neurology in [place], [place] [address] [place] [phone] Mohinder Ariza M.D. [address] [place] [phone] documented as of this encounter Visit Diagnoses Not on filedocumented in this encounter
--- OUTSIDE RECORDS SUMMARY | 2023-05-29 13:35 | XMS_ITS | Clinical Summary ---
Author Name Unknown Organization [facility] Address [address] [place] [address] Care Team Providers Care Linux Network Administrator Name Role Phone Unavailable Primary Care Provider Unavailabl e Source Comments Patient records contain information from all sites at [facility]. For routine questions regarding patient records, call [phone] during business hours, M-F 8:00 AM - 5:00 PM Central Time. Record requests for emergency care only can be directed to [phone] at any time.[facility] Allergies No known active allergies Medications Medication [...] (two) times a day. 600 mL 11 4 024 Discontinued(Re order) dexAMETHasone [...] AM CDT Clinical Communication Virtual Review in [place], [place] 200 [place] [address] 05/23/2023 Orders Only Department of Neurology in [address] [phone] Darion Heaton M.D. Secondary Malignant Neoplasm Brain (HCC) (Primary Dx); Seizure (HCC) 05/22/2023 Orders Only Department of Neurology in [address] [address] Darion Heaton M.D. 05/20/2023 Clinical Communication Department of Neurology in [address] [phone] Lucy Bueno R.N. Update on Seizure/Episodes 05/12/2023 Refill Department of Neurology in [place], [place] [address] [place] [phone] Mohinder Ariza M.D. Med Refill 05/12/2023 Orders Only Department of Neurology in [address] [address] Mohinder Ariza M.D. 05/12/2023 Refill Department of Neurology in [place], [place] [address] [place] [phone] Mohinder Ariza M.D. Med Refill 05/09/2023 9:00 AM CDT - 05/09/2023 12:56 PM CDT Hospital Encounter Department of Radiation Oncology in [address] [address] Marnie Schultz APRN, C.N.P., D.N.P. Geraldine Chang R.N. 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 Secondary Malignant Neoplasm Brain (HCC) 05/08/2023 8:05 AM CDT Hospital Encounter Department of Radiation Oncology in [address] [address] Radha Patterson M.D. 05/08/2023 Documentation Department of Radiation Oncology in [address] [address] Radha Patterson M.D. 05/08/2023 Orders Only Department of Neurology in [place], [place] [address] [place] [address] Mohinder Ariza M.D. 05/08/2023 Documentation Department of Neurology in [place], [place] [address] [place] [address] Mohinder Ariza M.D. 05/08/2023 Clinical Communication Department of Neurology in [place], [place] [address] [place] [address] Mohinder Ariza M.D. 05/07/2023 11:53 AM CDT - 05/07/2023 4:36 PM CDT Hospital Encounter Department of Radiation Oncology in [address] [address] Radha Patterson M.D. Secondary Malignant Neoplasm Brain (HCC) 05/07/2023 11:53 AM CDT Hospital Encounter Department of Radiation Oncology in [address] [address] Radha Patterson M.D. 05/06/2023 4:00 PM CDT Hospital Encounter Department of Radiation Oncology in [address] [address] Radha Patterson M.D. 05/06/2023 Refill Department of Neurology in [place], [place] [address] [place] [phone] Mohinder Ariza M.D. Med Refill 05/06/2023 Clinical Communication Department of Neurology in [place], [place] [address] [place] [phone] Mohinder Ariza M.D. Prescription change and directions 05/06/2023 Clinical Communication Department of Radiation Oncology in [address] [address] Jane Tobar P.A.-Eric., M.S. 05/02/2023 11:40 AM CDT Telemedicine Department of Oncology in [place], [place] [address] [place] [phone] Mohinder Ariza M.D. Secondary Malignant Neoplasm Brain (HCC) (Primary Dx); Seizure (HCC) 05/02/2023 Clinical Communication Department of Neurology in [place], [place] [address] [place] [phone] Mohinder Ariza M.D. levetiracetam 05/01/2023 8:30 AM CDT - 05/01/2023 3:46 PM CDT Hospital Encounter Department of Radiation Oncology in [address] [address] Radha Patterson M.D. Secondary Malignant Neoplasm Brain (HCC) 05/01/2023 7:41 AM CDT - 05/01/2023 8:29 AM CDT Hospital Encounter Department of Radiation Oncology in [place], [place] [address] [place] [phone] Radha Patterson M.D. 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 05/01/2023 Orders Only Department of Neurology in [place], [place] [address] [place] [address] Mohinder Ariza M.D. 04/30/2023 9:50 PM CDT Ancillary Procedure Department of Radiology in [place], [place] [address] [place] [address] Radha Patterson M.D. Secondary Malignant Neoplasm Brain (HCC) 04/30/2023 Orders Only Department of Radiation Oncology in [place], [place] [address] [place] [phone] Radha Patterson M.D. Secondary Malignant Neoplasm Brain (HCC) (Primary Dx) 04/29/2023 Clinical Communication Department of Radiation Oncology in [address] [address] Jane Tobar P.A.-C., M.S. 04/29/2023 Orders Only Department of Radiation Oncology in [address] [address] Jane Tobar P.A.-C., M.S. 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 03/31/2023 Refill Department of Neurology in [place], [place] [address] [place] [address] Mohinder Ariza M.D. Med Refill 02/27/2023 Refill Department of Radiation Oncology in [place], [place] [address] [place] [address] Marnie Schultz APRN, C.N.P., D.N.P. Med Change [...] the past 12 months has th e [employer], gas, oil, or water [employer] threatened to shut off services in your [...] your living situation today? 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 [address] [place] [phone] 06/19/2023 2:00 PM CDT Appointment Department of Neurology in [place], [place] [address] [place] [phone] Darion Heaton M.D. [address] [place] [phone] Discharge Disposition: Home or Self Care 06/20/2023 10:00 AM CDT Comprehensive Visit Department of Neurology in [place], [place] [address] [place] [phone] Ej Senior M.B.B.S. [address] [place] [phone] 07/07/2023 1:15 PM CDT Clinical Communication Virtual Review in [place], [place] 200 [place] [address] 07/09/2023 11:15 AM CDT Appointment Department of Radiology, [facility] in [place], [place] [address] [place] [phone] Mohinder Ariza M.D. [address] [place] [phone] 07/09/2023 4:00 PM CDT Office Visit Department of Neurology in [place], [place] [address] [place] [phone] Mohinder Ariza M.D. [address] [place] [phone] Health Maintenance Due Date Last Done Comments [...] this topic Medical Devices Implanted Type Area Timber Inspector Device Identifier Shelf Expiration Date Model / [...] OUTSIDE CT BODY Routine 04/10/2023 7:45 AM TILE AND MARBLE INSTALLER from Last 3 Months Results * MR head/brain wo/w con-Outside MR Neuro (05/28/2023 7:25 AM CDT) Only the most recent of2 resultswithin the time period is included. Narrative [facility] - 05/28/2023 2:54 PM CDT This order [...] IMG MRI PROCEDURE S Performing Organization Address [facility] Co de Phone Number IINY NA * CT HEAD/BRAIN WO CON-Outside CT Neuro (05/20/2023 3:35 PM CDT) Only the most recent of2 resultswithin the time period is included. 05/20/2023 3:32 PM CDT Narrative [facility] - 05/20/2023 4:00 PM CDT This order [...] System IMG CT PROCEDURES Performing Organization Address [facility] Co de Phone Number IINY NA * Aria Course Complete Treatment Information [...] Elapsed Days 2 BRUNO ARIA Reference Point [id number] BRUNO ARIA Dosage Given to Date cGy 2700 BRUNO ARIA Plan ID [id number] BRUNO ARIA Fractions Treated to Date 3 BRUNO ARIA Planned Total Fractions 3 BRUNO ARIA Prescribed Dose Per Fraction 900 BRUNO ARIA Prescription Dose in cGy 2700 BRUNO ARIA Plan Primary Reference Point [id number] BRUNO ARIA 05/08/2023 8:51 AM CDT Provider Not In System RADIATION ONCOLOG Y ORDERABLES Performing Organization Address [facility] Co de Phone Number MONTICELLO TRISTON na * Aria Daily Treatment Information (05/08/2023 8:51 AM CDT) Only the most recent of3 resultswithin the time period is included. Course ID [id number] sSRT BRUNO ARIA Course Start Date 4 12:50 CDT BRUNO ARIA First Treatment Date 4 16:26 CDT BRUNO ARIA Last Treatment Date 4 08:51 CDT BRUNO ARIA Treatment Elapsed Days 2 BRUNO ARIA Reference Point [id number] BRUNO ARIA Dosage Given to Date cGy 2700 BRUNO ARIA Session Dosage Given 900 BRUNO ARIA Plan ID [id number] BRUNO ARIA Fractions Treated to Date 3 BRUNO ARIA Planned Total Fractions 3 BRUNO ARIA Prescribed Dose Per Fraction 900 BRUNO ARIA Prescription Dose in cGy 2700 BRUNO ARIA Plan Primary Reference Point [id number] BRUNO ARIA 05/08/2023 8:51 AM CDT Provider Not In System RADIATION ONCOLOG Y ORDERABLES Performing Organization Address [facility] de Phone Number DAMION GOLDSTEIN na * Initial Rad Onc Treatment Planning CT Simulation (05/01/2023 8:30 AM CDT) Narrative BRUNO ARIA - 05/01/2023 8:30 AM CDT CodeKay, RTT ? 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
--- OUTSIDE RECORDS SUMMARY | 2023-05-29 13:36 | XMS_ITS | Encounter Summary ---
Author Name Unknown Organization [facility] Address [address] [place] [address] Care Team Providers Care Pie Crimping Machine Operator Name Role Phone Unavailable Primary Care Provider Unavailabl e Reason for Visit * Reason Onset Date Comments levetiracetam 05/02/2023 Encounter Details Date Type Department Care Team (Late st Contact Info) Description 05/02/2023 Clinical Communication Department of Neurology in [place], [place] [address] [place] [phone] Mohinder Ariza M.D. [address] [place] [phone] levetiracetam Social History Tobacco Use Types Packs/Day [...] AM CDT Telemedicine Department of Oncology in [place], [place] [address] [place] [phone] Mohinder Ariza M.D. [address] [place] [phone] 06/19/2023 2:00 PM CDT Appointment Department of Neurology in [address] [phone] Darion Heaton M.D. [address] [place] [phone] Discharge Disposition: Home or Self Care 06/20/2023 10:00 AM CDT Comprehensive Visit Department of Neurology in [address] [phone] Ej Senior M.B.B.S. [address] [place] [phone] 07/07/2023 1:15 PM CDT Clinical Communication Virtual Review in [place], [place] 200 [place] [address] 07/09/2023 11:15 AM CDT Appointment Department of Radiology, [facility] in [address] [phone] Mohinder Ariza M.D. [address] [place] [phone] 07/09/2023 4:00 PM CDT Office Visit Department of Neurology in [address] [phone] Mohinder Ariza M.D. [address] [place] [phone] documented as of this encounter Visit Diagnoses Not on filedocumented in this encounter
--- OUTSIDE RECORDS SUMMARY | 2023-05-29 13:36 | XMS_ITS | Encounter Summary ---
Author Name Unknown Organization [facility] Address [address] [place] [address] Care Team Providers Care Shank Turner Name Role Phone Unavailable Primary Care Provider Unavailabl e Encounter Details Date Type Department Care Team ([facility] st Contact Info) Description 05/08/2023 Clinical Communication Department of Neurology in [place], [place] [address] [place] [phone] Mohinder Ariza M.D. [address] [place] [phone] Social History Tobacco Use Types Packs/Day Years Used Date Smoking Tobacco: Every Day Cigarettes 0.5 Smokeless Tobacco: Never Alcohol Use Standard Drinks/Week Comments Not Currently 0 (1 standard drink = 0.6 oz pur e alcohol) [facility] Utilities Answer Date Recorded In the past 12 months has [facility] [employer], gas, oil, or water [employer] threatened to shut off services in your [...] your living situation today? I have a [facility] place to live 05/07/2023 Sex and [...] her blood work done Monday 05/[address] [facility] and the records should be at the [facility]. We will call and request the labs. I did call the [facility] who stated they will not know until later this afternoon if they will have the Dexamethasone today. Patient asked me to call the [facility] pharmacy. I will update her once we [...] updated prescription for Keppra sent to her [facility] pharmacy. Patient's states that the went to [...] AM CDT Telemedicine Department of Oncology in [address] [phone] Mohinder Ariza M.D. [address] [place] [phone] 06/19/2023 2:00 PM CDT Appointment Department of Neurology in [address] [phone] Darion Heaton M.D. [address] [place] [phone] Discharge Disposition: Home or Self Care 06/20/2023 10:00 AM CDT Comprehensive Visit Department of Neurology in [address] [phone] Ej Senior M.B.B.S. [address] [place] [phone] 07/07/2023 1:15 PM CDT Clinical Communication Virtual Review in [address] [address] 07/09/2023 11:15 AM CDT Appointment Department of Radiology, [facility] in [address] [phone] Mohinder Ariza M.D. [address] [place] [phone] 07/09/2023 4:00 PM CDT Office Visit Department of Neurology in [address] [address] Mohinder Ariza M.D. [address] [place] [phone] documented as of this encounter Visit Diagnoses Diagnosis Secondary Malignant Neoplasm Brain (HCC)- Primary documented in this encounter
--- OUTSIDE RECORDS SUMMARY | 2023-05-29 13:36 | XMS_ITS | Encounter Summary ---
Author Name Unknown Organization [facility] Address [address] [place] [address] Care Team Providers Care Rim Roller Setter Name Role Phone Unavailable Primary Care Provider Unavailabl e Encounter Details Date Type Department Care Team (Late st Contact Info) Description 05/08/2023 Documentation Department of Radiation Oncology in [place], [place] [address] [place] [phone] Radha Patterson M.D. [address] [place] [phone] Social History Tobacco Use Types Packs/Day Years Used Date Smoking Tobacco: Every Day Cigarettes 0.5 Smokeless Tobacco: Never Alcohol Use Standard Drinks/Week Comments Not Currently 0 (1 standard drink = 0.6 oz pur e alcohol) [facility] Utilities Answer Date Recorded In the past 12 months has [facility] [employer], gas, oil, or water [employer] threatened to shut off services in your [...] your living situation today? I have a [facility] place to live 05/07/2023 Sex and [...] (cGy) First Treatment Last Treatment Elapsed Days [id number] 900 2700 2700 05/06/2023 05/08/2023 2 Course [...] Belkis Gibson R.N., 05/22/2023 11:22 AM CDT [facility] [address] [place], [place] [phone] documented in this encounter Plan of Treatment Upcoming Encounters Date Type Department Care Team (Latest Contact Info) Description 05/30/2023 8:00 AM CDT Telemedicine Department of Oncology in [address] [phone] Mohinder Ariza M.D. [address] [place] [phone] 06/19/2023 2:00 PM CDT Appointment Department of Neurology in [address] [address] Darion Heaton M.D. [address] [place] [phone] Discharge Disposition: Home or Self Care 06/20/2023 10:00 AM CDT Comprehensive Visit Department of Neurology in [address] [phone] Ej Senior M.B.B.SDaniel [address] [place] [phone] 07/07/2023 1:15 PM CDT Clinical Communication Virtual Review in [address] [address] 07/09/2023 11:15 AM CDT Appointment Department of Radiology, [facility] in [address] [phone] Mohinder Ariza M.D. [address] [place] [phone] 07/09/2023 4:00 PM CDT Office Visit Department of Neurology in [place], [place] [address] [place] [address] Mohinder Ariza M.D. 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
--- OUTSIDE RECORDS SUMMARY | 2023-05-29 13:36 | XMS_ITS | Encounter Summary ---
Author Name Unknown Organization [facility] Address [address] [place] [address] Care Team Providers Care Exhibit Builder Name Role Phone Unavailable Primary Care Provider Unavailabl e Reason for Visit * Reason Comments Med Refill Encounter Details Date Type Department Care Team ([facility] st Contact Info) Description 05/06/2023 Refill Department of Neurology in [place], [place] [address] [place] [phone] Mohinder Ariza M.D. [address] [place] [phone] Med Refill Social History Tobacco Use Types Packs/Day Years Used Date Smoking Tobacco: Every Day Cigarettes 0.5 Smokeless Tobacco: Never Alcohol Use Standard Drinks/Week Comments Not Currently 0 (1 standard drink = 0.6 oz pur e alcohol) [facility] Utilities Answer Date Recorded In the past 12 months has [facility] [employer], gas, oil, or water [employer] threatened to shut off services in your [...] your living situation today? I have a [facility] place to live 05/07/2023 Sex and Gender Information Value Date Recorded Sex Assigned at Female 05/07/2023 9:41 AM CDT Gender Identity Female 05/07/2023 9:41 AM CDT Sexual Orientation Straight 05/07/2023 9: 41 AM CDT documented as of this encounter Plan of Treatment Upcoming Encounters Date Type Department Care Team (Latest Contact Info) Description 05/30/2023 8:00 AM CDT Telemedicine Department of Oncology in [place], [place] [address] [place] [address] Mohinder Ariza M.D. [address] [place] [phone] 06/19/2023 2:00 PM CDT Appointment Department of Neurology in [place], [place] [address] [place] [phone] Darion Heaton M.D. [address] [place] [phone] Discharge Disposition: Home or Self Care 06/20/2023 10:00 AM CDT Comprehensive Visit Department of Neurology in [place], [place] [address] [place] [phone] Ej Senior M.B.B.S. [address] [place] [phone] 07/07/2023 1:15 PM CDT Clinical Communication Virtual Review in [place], [place] 200 [place] [address] 07/09/2023 11:15 AM CDT Appointment Department of Radiology, [facility] in [place], [place] [address] [place] [phone] Mohinder Arzia M.D. [address] [place] [phone] 07/09/2023 4:00 PM CDT Office Visit Department of Neurology in [place], [place] [address] [place] [phone] Mohinder Ariza M.D. [address] [place] [phone] documented as of this encounter Visit Diagnoses Not on filedocumented in this encounter
--- OUTSIDE RECORDS SUMMARY | 2023-05-29 13:36 | XMS_ITS | Encounter Summary ---
Author Name Unknown Organization [facility] Address [address] [place] [address] Care Team Providers Care Server Engineer Name Role Phone Unavailable Primary Care Provider Unavailabl e Reason for Referral * Radiation Therapy (Routine) - Closed Specialty Diagnoses / Procedures Referred By Randy christiansen Referred To Contact Diagnoses Secondary Malignant Neoplasm Brain (HCC) Procedures Initial Rad Onc Treatment Planning CT Simulation Radha Patterson M.D. [address] [place] [phone] [facility] Region Referral ID Status Reason Start Date Expiration Date Visits Re quested Visits Authorized [id number] Closed 04/29/2023 04/28/2024 1 1 Reason for Visit * Radiation Therapy (Routine) - Closed Specialty Diagnoses / Procedures Referred By Randy christiansen Referred To Contact Diagnoses Secondary Malignant Neoplasm Brain (HCC) Procedures Initial Rad Onc Treatment Planning CT Simulation Radha Patterson M.D. 200 [place] [address] [facility] Region Referral ID Status Reason Start Date Expiration Date Visits Re quested Visits Authorized [id number] Closed 04/29/2023 04/28/2024 1 1 Encounter Details Date Type Department Care Team (Latest Contact Info) Description 05/01/2023 8:30 AM CDT - 05/01/2023 3:46 PM CDT Hospital Encounter Department of Radiation Oncology in [address] [phone] Radha Patterson M.D. [address] [place] [address] Secondary Malignant Neoplasm Brain (HCC) Social History [...] ORALLY EVERY DAY AT BEDTIME 0 05/12/2022 busPIRone (BUSPAR) 10 mg tablet Take 1 tablet by mouth 3 (three) times a day with meals. 0 04/24/2023 dexAMETHasone (DECADRON) 2 mg tablet Take 1 [...] of this encounter Procedure Notes * Code, DIMITRIOS Grace - 05/01/2023 8:30 AM CDTAssociated Order(s): Initial [...] planning. CT images were transferred to the [facility] treatment planning system, after a reference isocenter was determined and marked. Segmentation and treatment planning will take place prior to treatment delivery. Patient set up and imaging was appropriate and completed without incident. Liner Reroll Tender use:No Associated attestation - Radha Patterson M.D. - 05/01/2023 3:45 PM CDT I was present during all critical and rincon portions of the procedure(s) and immediately available [facility] services the entire duration. See note for details. documented in this encounter Plan of Treatment Upcoming Encounters Date Type Department Care Team (Latest Contact Info) Description 05/30/2023 8:00 AM CDT Telemedicine Department of Oncology in [place], [place] [address] [place] [phone] Mohinder Ariza M.D. [address] [place] [phone] 06/19/2023 2:00 PM CDT Appointment Department of Neurology in [place], [place] [address] [place] [phone] Darion Heaton M.D. [address] [place] [phone] Discharge Disposition: Home or Self Care 06/20/2023 10:00 AM CDT Comprehensive Visit Department of Neurology in [place], [place] [address] [place] [phone] Ej Senior M.B.B.S. [address] [place] [phone] 07/07/2023 1:15 PM CDT Clinical Communication Virtual Review in [place], [place] 200 [place] [address] 07/09/2023 11:15 AM CDT Appointment Department of Radiology, [facility] in [address] [phone] Mohinder Ariza M.D. [address] [place] [phone] 07/09/2023 4:00 PM CDT Office Visit Department of Neurology in [address] [phone] Mohinder Ariza M.D. [address] [place] [phone] documented as of this encounter Procedures Procedure [...]
--- OUTSIDE RECORDS SUMMARY | 2023-05-29 13:36 | XMS_ITS | Encounter Summary ---
Author Name Unknown Organization [facility] Address [address] [place] [address] Care Team Providers Care Teacher Emotionally Impaired Name Role Phone Unavailable Primary Care Provider Unavailabl e Reason for Referral * Outpatient (Routine) - Closed Specialty Diagnoses / Procedures Referred By Randy christiansen Referred To Contact Neurology Mohinder Ariza M.D. [address] [place] [phone] [facility] Referral ID Status Reason Start Date Expiration Date Visits Re quested Visits Authorized [id number] Closed 05/01/2023 10/30/2024 1 1 Encounter Details Date Type Department Care Team (Late st Contact Info) Description 05/01/2023 Orders Only Department of Neurology in [place], [place] [address] [place] [phone] Mohinder Ariza M.D. [address] [place] [phone] Social History Tobacco Use Types Packs/Day Years [...] AM CDT Telemedicine Department of Oncology in [place], [place] [address] [place] [phone] Mohinder Ariza M.D. [address] [place] [phone] 06/19/2023 2:00 PM CDT Appointment Department of Neurology in [address] [phone] Darion Heaton M.D. [address] [place] [phone] Discharge Disposition: Home or Self Care 06/20/2023 10:00 AM CDT Comprehensive Visit Department of Neurology in [address] [phone] Ej Senior M.B.B.S. [address] [place] [phone] 07/07/2023 1:15 PM CDT Clinical Communication Virtual Review in [place], [place] 200 [place] [address] 07/09/2023 11:15 AM CDT Appointment Department of Radiology, [facility], in [place], [place] [address] [place] [phone] Mohinder Ariza M.D. [address] [place] [phone] 07/09/2023 4:00 PM CDT Office Visit Department of Neurology in [place], [place] [address] [place] [phone] [place] [phone] Scheduled Referrals Name Type Priority Associated Diagnoses Orde r Schedule Neurology office visit (clinic) Outpatient Referral Routine Expected: 05/01/2023 (Approximate), Expires: 07/31/2024 documented as of this encounter Visit Diagnoses Not on filedocumented in this encounter
--- OUTSIDE RECORDS SUMMARY | 2023-05-29 13:36 | XMS_ITS | Encounter Summary ---
Author Name Unknown Organization [facility] Address [address] [place] [address] Care Team Providers Care Certified Nursing Attendant Name Role Phone Unavailable Primary Care Provider Unavailabl e Reason for Referral * Outpatient (Routine) - Authorized Specialty Diagnoses / Procedures Referred By Contac t Referred To Contact Radiation Oncology Marnie Schultz APRN, C.N.PDaniel, D.N.P. [address] [place] [phone] [facility] Region Referral ID Status Reason Start Date Expiration Date V isits Requested Visits Authorized [id number] Authorized 05/08/2023 11/06/2024 10 10 Scheduling Instructions Phone visit on please * Radiation Therapy (Routine) - Authorized Specialty Diagnoses / Procedures Referred By Contac t Referred To Contact Diagnoses Secondary Malignant Neoplasm Brain (HCC) Procedures Management Visit Radha Patterson M.D. [address] [place] [phone] [facility] Region Referral ID Status Reason Start Date Expiration Date V isits Requested Visits Authorized [id number] Authorized 04/29/2023 04/28/2024 10 10 Reason for Visit * Radiation Therapy (Routine) - Authorized Specialty Diagnoses / Procedures Referred By Contac t Referred To Contact Diagnoses Secondary Malignant Neoplasm Brain (HCC) Procedures Management Visit Radha Patterson M.D. 200 [place] [address] [facility] Region Referral ID Status Reason Start Date Expiration Date V isits Requested Visits Authorized [id number] Authorized 04/29/2023 04/28/2024 10 10 Encounter Details Date Type Department Care Team (Latest Contact Info) Description 05/08/2023 9:00 AM CDT - 05/08/2023 3:06 PM CDT Hospital Encounter Department of Radiation Oncology in [place], [place] [address] [place] [address] Angel Luis Esquivel M.D. 200 [place] [phone] Secondary Malignant Neoplasm Brain (HCC) Social History Tobacco Use Types Packs/Day Years Used Date Smoking Tobacco: Every Day Cigarettes 0.5 Smokeless Tobacco: Never Alcohol Use Standard Drinks/Week Comments Not Currently 0 (1 standard drink = 0.6 oz pur e alcohol) [facility] Utilities Answer Date Recorded In the past 12 months has e [employer], gas, oil, or water [employer] threatened to shut off services in your [...] your living situation today? I have a [facility] place to live 05/07/2023 Sex [...] (HCC) SUPERVISED BY: Angel Luis Esquivel M.D. ([id number]) HISTORY OF PRESENT ILLNESS Belkis Manjarrez is a 57 y.o. female with metastatic small cell lung cancer. Patient completed SRS to the lesions in the left anterior frontal today, May 07. Treatment Course: [id number] Plan ID Fractions Dose / Fraction (cGy) Dose Treated (cGy) Dose Planned (cGy) First Treatment Last Treatment Elapsed Days [id number] 900 2700 2700 05/06/2023 05/08/2023 2 Course [...] Luis Esquivel M.D. 05/08/23 3:06 PM CDT [facility] Radiation Therapy [facility] documented in this encounter Plan of Treatment Upcoming Encounters Date Type Department Care Team (Latest Contact Info) Description 05/30/2023 8:00 AM CDT Telemedicine Department of Oncology in [place], [place] [address] [place] [phone] Mohinder Ariza M.D. [address] [place] [phone] 06/19/2023 2:00 PM CDT Appointment Department of Neurology in [place], [place] [address] [place] [phone] Darion Heaton M.D. [address] [place] [phone] Discharge Disposition: Home or Self Care 06/20/2023 10:00 AM CDT Comprehensive Visit Department of Neurology in [place], [place] [address] [place] [phone] Ej Senior M.B.B.S. [address] [place] [phone] 07/07/2023 1:15 PM CDT Clinical Communication Virtual Review in [place], [place] 200 [place] [address] 07/09/2023 11:15 AM CDT Appointment Department of Radiology, [facility] in [place], [place] [address] [place] [phone] Mohinder Ariza M.D. [address] [place] [phone] 07/09/2023 4:00 PM CDT Office Visit Department of Neurology in [place], [place] [address] [place] [phone] Mohinder Ariaz M.D. [address] [place] [phone] Scheduled Orders Name Type Priority Associated Diagnoses [...]
--- OUTSIDE RECORDS SUMMARY | 2023-05-29 13:36 | XMS_ITS | Encounter Summary ---
Author Name Unknown Organization [facility] Address [address] [place] [address] Care Team Providers Care Water Pump Servicer Name Role Phone Unavailable Primary Care Provider Unavailabl e Reason for Visit * Reason Comments Med Refill Encounter Details Date Type Department Care Team ([facility] st Contact Info) Description 05/12/2023 Refill Department of Neurology in [place], [place] [address] [place] [phone] Mohinder Ariza M.D. [address] [place] [phone] Med Refill Social History Tobacco Use Types Packs/Day Years Used Date Smoking Tobacco: Every Day Cigarettes 0.5 Smokeless Tobacco: Never Alcohol Use Standard Drinks/Week Comments Not Currently 0 (1 standard drink = 0.6 oz pur e alcohol) [facility] Utilities Answer Date Recorded In the past 12 months has [facility] [employer], gas, oil, or water [employer] threatened to shut off services in your [...] your living situation today? I have a [facility] place to live 05/07/2023 Sex [...] AM CDT Telemedicine Department of Oncology in [place], [place] [address] [place] [address] Mohinder Ariza M.D. [address] [place] [phone] 06/19/2023 2:00 PM CDT Appointment Department of Neurology in [place], [place] [address] [place] [phone] Darion Heaton M.D. [address] [place] [phone] Discharge Disposition: Home or Self Care 06/20/2023 10:00 AM CDT Comprehensive Visit Department of Neurology in [place], [place] [address] [place] [phone] Ej Senior M.B.B.S. [address] [place] [phone] 07/07/2023 1:15 PM CDT Clinical Communication Virtual Review in [place], [place] 200 [place] [address] 07/09/2023 11:15 AM CDT Appointment Department of Radiology, [facility] in [place], [place] [address] [place] [phone] Mohinder Ariza M.D. [address] [place] [phone] 07/09/2023 4:00 PM CDT Office Visit Department of Neurology in [place], [place] [address] [place] [phone] Mohinder Ariza M.D. [address] [place] [phone] documented as of this encounter Visit Diagnoses Not on filedocumented in this encounter
--- OUTSIDE RECORDS SUMMARY | 2023-05-29 13:36 | XMS_ITS | Encounter Summary ---
Author Name Unknown Organization [facility] Address [address] [place] [address] Care Team Providers Care First Line Production Supervisor Name Role Phone Unavailable Primary Care Provider Unavailabl e Encounter Details Date Type Department Care Team (Late st Contact Info) Description 05/06/2023 Clinical Communication Department of Radiation Oncology in [place], [place] [address] [place] [phone] Jane Tobar P.A.-C., M.S. [address] [place] [phone] Social History Tobacco Use Types Packs/Day Years Used Date Smoking Tobacco: Every Day Cigarettes 0.5 Smokeless Tobacco: Never Alcohol Use Standard Drinks/Week Comments Not Currently 0 (1 standard drink = 0.6 oz pur e alcohol) [facility] Utilities Answer Date Recorded In the past 12 months has e [employer], gas, oil, or water [employer] threatened to shut off services in your [...] your living situation today? I have a [facility] place to live 05/07/2023 Sex [...] AM CDT Telemedicine Department of Oncology in [address] [phone] Mohinder Ariza M.D. [address] [place] [phone] 06/19/2023 2:00 PM CDT Appointment Department of Neurology in [address] [phone] Darion Heaton M.D. [address] [place] [phone] Discharge Disposition: Home or Self Care 06/20/2023 10:00 AM CDT Comprehensive Visit Department of Neurology in [address] [phone] Ej Senior M.B.B.S. [address] [place] [phone] 07/07/2023 1:15 PM CDT Clinical Communication Virtual Review in [address] [address] 07/09/2023 11:15 AM CDT Appointment Department of Radiology, [facility] in [address] [phone] Mohinder Ariaz M.D. [address] [place] [phone] 07/09/2023 4:00 PM CDT Office Visit Department of Neurology in [address] [place] [phone] Mohinder Ariza M.D. 200 [place] [phone] documented as of this encounter Visit Diagnoses Not on filedocumented in this encounter
--- OUTSIDE RECORDS SUMMARY | 2023-05-29 13:36 | XMS_ITS | Encounter Summary ---
Author Name Unknown Organization [facility] Address [address] [place] [address] Care Team Providers Care Hasher Operator Name Role Phone Unavailable Primary Care Provider Unavailabl e Reason for Referral * Outpatient (Routine) - Authorized Specialty Diagnoses / Procedures Referred By Randy christiansen Referred To Contact Neurology Mohinder Ariza M.D. [address] [place] [phone] [facility] Referral ID Status Reason Start Date Expiration Date V isits Requested Visits Authorized [id number] Authorized 05/08/2023 11/06/2024 1 1 Scheduling Instructions Please add on for me at 8 AM. Encounter Details Date Type Department Care Team (Late st Contact Info) Description 05/08/2023 Orders Only Department of Neurology in [place], [place] [address] [place] [phone] Mohinder Ariza M.D. [address] [place] [phone] Social History Tobacco Use Types Packs/Day Years Used Date Smoking Tobacco: Every Day Cigarettes 0.5 Smokeless Tobacco: Never Alcohol Use Standard Drinks/Week Comments Not Currently 0 (1 standard drink = 0.6 oz pur e alcohol) [facility] Utilities Answer Date Recorded In [...] your living situation today? I have a [facility] place to live 05/07/2023 Sex and Gender Information Value Date Recorded Sex Assigned at Female 05/07/2023 9:41 AM CDT Gender Identity Female 05/07/2023 9:41 AM CDT Sexual Orientation Straight 05/07/2023 9: 41 AM CDT documented as of this encounter Plan of Treatment Upcoming Encounters Date Type Department Care Team (Latest Contact Info) Description 05/30/2023 8:00 AM CDT Telemedicine Department of Oncology in [place], [place] 200 [place] [phone] Mohinder Ariza M.D. 200 [place] [phone] 06/19/2023 2:00 PM CDT Appointment Department of Neurology in [place], [place] [address] [place] [phone] Darion Heaton M.D. [address] [place] [phone] Discharge Disposition: Home or Self Care 06/20/2023 10:00 AM CDT Comprehensive Visit Department of Neurology in [place], [place] [address] [place] [phone] Ej Senior M.B.B.S. [address] [place] [phone] 07/07/2023 1:15 PM CDT Clinical Communication Virtual Review in [place], [place] 200 [place] [address] 07/09/2023 11:15 AM CDT Appointment Department of Radiology, [facility] in [address] [phone] Mohinder Ariza M.D. [address] [place] [phone] 07/09/2023 4:00 PM CDT Office Visit Department of Neurology in [address] [phone] Mohinder Ariza M.D. [address] [place] [phone] Scheduled Referrals Name Type Priority Associated Diagnoses Orde r Schedule Neurology office visit (clinic) Outpatient Referral Routine Expected: 05/30/2023, Expires: 08/07/2024 documented as of this encounter Visit Diagnoses Not on filedocumented in this encounter
--- OUTSIDE RECORDS SUMMARY | 2023-05-29 13:36 | XMS_ITS | Encounter Summary ---
Author Name Unknown Organization [facility] Address [address] [place] [address] Care Team Providers Care Silverware Buffer Name Role Phone Unavailable Primary Care Provider Unavailabl e Reason for Visit * Radiation Therapy (Routine) - Closed Specialty Diagnoses / Procedures Referred By Contac t Referred To Contact Diagnoses Secondary Malignant Neoplasm Brain (HCC) Procedures Prior Auth Rad Tx [place] STEREOTACTIC BODY RADTN [facility] Radha Patterson M.D. [address] [place] [phone] [facility] Referral ID Status Reason Start Date Expiration Date Visits Re quested Visits Authorized [id number] Closed 04/30/2023 02/17/2024 3 3 Encounter Details Date Type Department Care Team (Late st Contact Info) Description 05/08/2023 8:05 AM CDT Hospital Encounter Department of Radiation Oncology in [place], [place] [address] [place] [phone] Radha Patterson M.D. [address] [place] [phone] Social History Tobacco Use Types Packs/Day Years Used Date Smoking Tobacco: Every Day Cigarettes 0.5 Smokeless Tobacco: Never Alcohol Use Standard Drinks/Week Comments Not Currently 0 (1 standard drink = 0.6 oz pur e alcohol) [facility] Utilities Answer Date Recorded In [...] AM CDT Telemedicine Department of Oncology in [place], [place] 200 [place] [address] Mohinder Ariza M.D. 200 [place] [phone] 06/19/2023 2:00 PM CDT Appointment Department of Neurology in [place], [place] [address] [place] [phone] Darion Heaton M.D. [address] [place] [phone] Discharge Disposition: Home or Self Care 06/20/2023 10:00 AM CDT Comprehensive Visit Department of Neurology in [place], [place] [address] [place] [phone] Ej Senior M.B.B.S. [address] [place] [phone] 07/07/2023 1:15 PM CDT Clinical Communication Virtual Review in [place], [place] 200 [place] [address] 07/09/2023 11:15 AM CDT Appointment Department of Radiology, [facility] in [place], [place] [address] [place] [phone] Mohinder Ariza M.D. [address] [place] [phone] 07/09/2023 4:00 PM CDT Office Visit Department of Neurology in [address] [phone] Mohinder Ariza M.D. [address] [place] [phone] documented as of this encounter Visit Diagnoses Not on filedocumented in this encounter
--- OUTSIDE RECORDS SUMMARY | 2023-05-29 13:36 | XMS_ITS | Encounter Summary ---
Author Name Unknown Organization [facility] [place] [facility] Address [address] [place] [address] Care Team Providers Care Lathe Set Up Person Name Role Phone Unavailable Primary Care Provider Unavailabl e Reason for Visit * Radiation Therapy (Routine) - Closed Specialty Diagnoses / Procedures Referred By Contac t Referred To Contact Diagnoses Secondary Malignant Neoplasm Brain (HCC) Procedures Prior Auth Rad Tx OR STEREOTACTIC BODY RADTN [facility] Radha Patterson M.D. [address] [place] [phone] [facility] Referral ID Status Reason Start Date Expiration Date Visits Re quested Visits Authorized [id number] Closed 04/30/2023 02/17/2024 3 3 Encounter Details Date Type Department Care Team ([facility] st Contact Info) Description 05/07/2023 11:53 AM CDT Hospital Encounter Department of Radiation Oncology in [place], [place] [address] [place] [phone] Radha Patterson M.D. [address] [place] [phone] Social History Tobacco Use Types Packs/Day Years Used Date Smoking Tobacco: Every Day Cigarettes 0.5 Smokeless Tobacco: Never Alcohol Use Standard Drinks/Week Comments Not Currently 0 (1 standard drink = 0.6 oz pur e alcohol) [facility] Utilities Answer Date Recorded In the [...] your living situation today? I have a [facility] place to live 05/07/2023 [...] AM CDT Telemedicine Department of Oncology in [place], [place] 200 [place] [address] Mohinder Ariza M.D. 200 [place] [phone] 06/19/2023 2:00 PM CDT Appointment Department of Neurology in [place], [place] [address] [place] [phone] Darion Heaton M.D. [address] [place] [phone] Discharge Disposition: Home or Self Care 06/20/2023 10:00 AM CDT Comprehensive Visit Department of Neurology in [place], [place] [address] [place] [phone] Ej Senior M.B.B.S. [address] [place] [phone] 07/07/2023 1:15 PM CDT Clinical Communication Virtual Review in [place], [place] 200 [place] [address] 07/09/2023 11:15 AM CDT Appointment Department of Radiology, [facility] in [place], [place] [address] [place] [phone] Mohinder Ariza M.D. [address] [place] [phone] 07/09/2023 4:00 PM CDT Office Visit Department of Neurology in [address] [phone] Mohinder Ariza M.D. [address] [place] [phone] documented as of this encounter Visit Diagnoses Not on filedocumented in this encounter
--- OUTSIDE RECORDS SUMMARY | 2023-05-29 13:36 | XMS_ITS | Encounter Summary ---
Author Name Unknown Organization [facility] Address [address] [place] [address] Care Team Providers Care Injection Operator Name Role Phone Unavailable Primary Care Provider Unavailabl e Reason for Referral * Outpatient (Routine) - Authorized Specialty Diagnoses / Procedures Referred By Contac t Referred To Contact Radiation Oncology Marnie Schultz APRN, C.N.P., D.N.P. [address] [place] [phone] [facility] Region Referral ID Status Reason Start Date Expiration Date V isits Requested Visits Authorized [id number] Authorized 05/08/2023 11/06/2024 10 10 Scheduling Instructions Phone visit on please Reason for Visit * Outpatient (Routine) - Authorized Specialty Diagnoses / Procedures Referred By Contac t Referred To Contact Radiation Oncology Marnie Schultz APRN, C.N.P., D.N.P. [address] [place] [phone] [facility] Region Referral ID Status Reason Start Date Expiration Date V isits Requested Visits Authorized [id number] Authorized 05/08/2023 11/06/2024 10 10 Encounter Details Date Type Department Care Team ([facility] st Contact Info) Description 05/09/2023 9:00 AM CDT - 05/09/2023 12:56 PM CDT Hospital Encounter Department of Radiation Oncology in [place], [place] [address] [place] [phone] Marnie Schultz APRN, C.N.P., D.N.P. [address] [place] [phone] Geraldine Chang R.N. 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 Answer Date Recorded In the past 12 months has e [employer], [employer], oil, or water [employer] threatened to shut off services in your [...] this encounter Progress Notes * Geraldine Chang RHalima. - 05/09/2023 9:00 AM CDT ASSESSMENT Patient [...] asking for refill to be sent to [facility] in [place]. PLAN I discussed with patient that Dr. [...] Dexamethasone yesterday to patient's preferred pharmacy in [place]. I provided patient with our after hours contact number. documented in this encounter Plan of Treatment Upcoming Encounters Date Type Department Care Team (Latest Contact Info) Description 05/30/2023 8:00 AM CDT Telemedicine Department of Oncology in [place], [place] [address] [place] [phone] Mohinder Ariza M.D. [address] [place] [phone] 06/19/2023 2:00 PM CDT Appointment Department of Neurology in [place], [place] [address] [place] [phone] Darion Heaton M.D. [address] [place] [phone] Discharge Disposition: Home or Self Care 06/20/2023 10:00 AM CDT Comprehensive Visit Department of Neurology in [place], [place] [address] [place] [phone] Ej Senior M.B.B.S. [address] [place] [phone] 07/07/2023 1:15 PM CDT Clinical Communication Virtual Review in [place], [place] 200 [place] [address] 07/09/2023 11:15 AM CDT Appointment Department of Radiology, [facility] in [place], [place] [address] [place] [phone] Mohinder Ariza M.D. [address] [place] [phone] 07/09/2023 4:00 PM CDT Office Visit Department of Neurology in [place], [place] [address] [place] [phone] Mohinder Ariza M.D. 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
--- OUTSIDE RECORDS SUMMARY | 2023-05-29 13:36 | XMS_ITS | Encounter Summary ---
Author Name Unknown Organization [facility] Address [address] [place] [address] Care Team Providers Care Ballpoint Pen Cartridge Tester Name Role Phone Unavailable Primary Care Provider Unavailabl e Encounter Details Date Type Department Care Team ( Contact Info) Description 05/01/2023 Orders Only Department of Neurology in [place], [place] [address] [place] [phone] Mohinder Ariza M.D. [address] [place] [phone] Social History Tobacco Use Types Packs/Day Years [...] AM CDT Telemedicine Department of Oncology in [place], [place] [address] [place] [phone] Mohinder Ariza M.D. [address] [place] [phone] 06/19/2023 2:00 PM CDT Appointment Department of Neurology in [place], [place] [address] [place] [phone] Darion Heaton M.D. [address] [place] [phone] Discharge Disposition: Home or Self Care 06/20/2023 10:00 AM CDT Comprehensive Visit Department of Neurology in [place], [place] [address] [place] [phone] Ej Senior M.B.B.S. [address] [place] [phone] 07/07/2023 1:15 PM CDT Clinical Communication Virtual Review in [place], [place] 200 [place] [address] 07/09/2023 11:15 AM CDT Appointment Department of Radiology, [facility] in [place], [place] [address] [place] [phone] Mohinder Ariza M.D. [address] [place] [phone] 07/09/2023 4:00 PM CDT Office Visit Department of Neurology in [place], [place] [address] [place] [phone] Mohinder Ariza M.D. [address] [place] [phone] documented as of this encounter Visit Diagnoses Not on filedocumented in this encounter
--- OUTSIDE RECORDS SUMMARY | 2023-05-29 13:36 | XMS_ITS | Encounter Summary ---
Author Name Unknown Organization [facility] Address [address] [place] [address] Care Team Providers Care Deburrer Machine Name Role Phone Unavailable Primary Care Provider Unavailabl e Reason for Visit * Reason Onset Date Comments Prescription change and directions 05/06/2023 Encounter Details Date Type Department Care Team (Latest Contact Info) Description 05/06/2023 Clinical Communication Department of Neurology in [place], [place] [address] [place] [phone] Mohinder Ariza M.D. [address] [place] [phone] Prescription change and directions Social History Tobacco Use Types Packs/Day Years Used Date Smoking Tobacco: Every Day Cigarettes 0.5 Smokeless Tobacco: Never Alcohol Use Standard Drinks/Week Comments Not Currently 0 (1 standard drink = 0.6 oz pur e alcohol) [facility] Utilities Answer Date Recorded In the past 12 months has [facility] [employer], gas, oil, or water [employer] threatened to shut off services in your [...] your living situation today? I have a [facility] place to live 05/07/2023 Sex and [...] AM CDT Telemedicine Department of Oncology in [place], [place] [address] [place] [phone] Mohinder Ariza M.D. [address] [place] [phone] 06/19/2023 2:00 PM CDT Appointment Department of Neurology in [place], [place] [address] [place] [phone] Darion Heaton M.D. [address] [place] [phone] Discharge Disposition: Home or Self Care 06/20/2023 10:00 AM CDT Comprehensive Visit Department of Neurology in [place], [place] [address] [place] [phone] Ej Senior M.B.B.S. [address] [place] [phone] 07/07/2023 1:15 PM CDT Clinical Communication Virtual Review in [place], [place] 200 [place] [address] 07/09/2023 11:15 AM CDT Appointment Department of Radiology, [facility] in [place], [place] [address] [place] [phone] Mohinder Ariza M.D. [address] [place] [phone] 07/09/2023 4:00 PM CDT Office Visit Department of Neurology in [place], [place] [address] [place] [phone] Mohinder Ariza M.D. [address] [place] [phone] documented as of this encounter Visit Diagnoses Not on filedocumented in this encounter
--- OUTSIDE RECORDS SUMMARY | 2023-05-29 13:36 | XMS_ITS | Encounter Summary ---
Author Name Unknown Organization [facility] Address [address] [place] [address] Care Team Providers Care Tube Pusher Name Role Phone Unavailable Primary Care Provider Unavailabl e Encounter Details Date Type Department Care Team (Late st Contact Info) Description 05/08/2023 Documentation Department of Neurology in [place], [place] [address] [place] [phone] Mohinder Ariza M.D. [address] [place] [phone] Social History Tobacco Use Types Packs/Day Years Used Date Smoking Tobacco: Every Day Cigarettes 0.5 Smokeless Tobacco: Never Alcohol Use Standard Drinks/Week Comments Not Currently 0 (1 standard drink = 0.6 oz pur e alcohol) [facility] Utilities Answer Date Recorded In the past 12 months has [facility] [employer], gas, oil, or water [employer] threatened to shut off services in your [...] your living situation today? I have a [facility] place to live 05/07/2023 Sex [...] AM CDT Telemedicine Department of Oncology in [place], [place] [address] [place] [phone] Mohinder Ariza M.D. [address] [place] [phone] 06/19/2023 2:00 PM CDT Appointment Department of Neurology in [place], [place] [address] [place] [phone] Darion Heaton M.D. [address] [place] [phone] Discharge Disposition: Home or Self Care 06/20/2023 10:00 AM CDT Comprehensive Visit Department of Neurology in [address] [phone] Ej Senior M.B.B.SDaniel [address] [place] [phone] 07/07/2023 1:15 PM CDT Clinical Communication Virtual Review in [place], [place] 200 [place] [address] 07/09/2023 11:15 AM CDT Appointment Department of Radiology, [facility] in [place], [place] [address] [place] [phone] Mohinder Ariza M.D. [address] [place] [phone] 07/09/2023 4:00 PM CDT Office Visit Department of Neurology in [place], [place] [address] [place] [phone] Mohinder Ariza M.D. [address] [place] [phone] documented as of this encounter Visit Diagnoses Not on filedocumented in this encounter
--- OUTSIDE RECORDS SUMMARY | 2023-05-29 13:36 | XMS_ITS | Encounter Summary ---
Author Name Unknown Organization [facility] Address [address] [place] [address] Care Team Providers Care Aircraft Powertrain Repairer Name Role Phone Unavailable Primary Care Provider Unavailabl e Reason for Visit * Radiation Therapy (Routine) - Closed Specialty Diagnoses / Procedures Referred By Contac t Referred To Contact Diagnoses Secondary Malignant Neoplasm Brain (HCC) Procedures Prior Auth Rad Tx MA STEREOTACTIC BODY RADTN [facility] Radha Patterson M.D. [address] [place] [phone] [facility] Referral ID Status Reason Start Date Expiration Date Visits Re quested Visits Authorized [id number] Closed 04/30/2023 02/17/2024 3 3 Encounter Details Date Type Department Care Team (Late st Contact Info) Description 05/06/2023 4:00 PM CDT Hospital Encounter Department of Radiation Oncology in [place], [place] [address] [place] [phone] Radha Patterson M.D. [address] [place] [phone] Social History Tobacco Use Types Packs/Day Years Used Date Smoking Tobacco: Every Day Cigarettes 0.5 Smokeless Tobacco: Never Alcohol Use Standard Drinks/Week Comments Not Currently 0 (1 standard drink = 0.6 oz pur e alcohol) [facility] Utilities Answer Date Recorded In [...] your living situation today? I have a [facility] place to live 05/07/2023 Sex and Gender Information Value Date Recorded Sex Assigned at Female 05/07/2023 9:41 AM CDT Gender Identity Female 05/07/2023 9:41 AM CDT Sexual Orientation Straight 05/07/2023 9: 41 AM CDT documented as of this encounter Plan of Treatment Upcoming Encounters Date Type Department Care Team (Latest Contact Info) Description 05/30/2023 8:00 AM CDT Telemedicine Department of Oncology in [place], [place] 200 [place] [address] Mohinder Ariza M.D. 200 [place] [phone] 06/19/2023 2:00 PM CDT Appointment Department of Neurology in [place], [place] [address] [place] [phone] Darion Heaton M.D. [address] [place] [phone] Discharge Disposition: Home or Self Care 06/20/2023 10:00 AM CDT Comprehensive Visit Department of Neurology in [place], [place] [address] [place] [phone] Ej Senior M.B.B.S. [address] [place] [phone] 07/07/2023 1:15 PM CDT Clinical Communication Virtual Review in [place], [place] 200 [place] [address] 07/09/2023 11:15 AM CDT Appointment Department of Radiology, [facility] in [place], [place] [address] [place] [phone] Mohinder Ariza M.D. [address] [place] [phone] 07/09/2023 4:00 PM CDT Office Visit Department of Neurology in [address] [phone] Mohinder Ariza M.D. [address] [place] [phone] documented as of this encounter Visit Diagnoses Not on filedocumented in this encounter
--- OUTSIDE RECORDS SUMMARY | 2023-05-29 13:36 | XMS_ITS | Encounter Summary ---
Author Name Unknown Organization [facility] Address [address] [place] [address] Care Team Providers Care Lacquer Machine Feeder Name Role Phone Unavailable Primary Care Provider Unavailabl e Reason for Referral * Outpatient (Routine) - Authorized Specialty Diagnoses / Procedures Referred By Contac t Referred To Contact Radiation Oncology Radha Patterson M.D. [address] [place] [phone] [facility] Region Referral ID Status Reason Start Date Expiration Date V isits Requested Visits Authorized [id number] Authorized 05/07/2023 11/05/2024 1 1 Scheduling Instructions In 1 week with YIG * Radiation Therapy (Routine) - Authorized Specialty Diagnoses / Procedures Referred By Yoletteac t Referred To Contact Diagnoses Secondary Malignant Neoplasm Brain (HCC) Procedures Management Visit Radha Patterson M.D. [address] [place] [phone] [facility] Region Referral ID Status Reason Start Date Expiration Date V isits Requested Visits Authorized [id number] Authorized 04/29/2023 04/28/2024 10 10 Reason for Visit * Radiation Therapy (Routine) - Authorized Specialty Diagnoses / Procedures Referred By Contac t Referred To Contact Diagnoses Secondary Malignant Neoplasm Brain (HCC) Procedures Management Visit Radha Patterson M.D. 200 [place] [address] [facility] Region Referral ID Status Reason Start Date Expiration Date V isits Requested Visits Authorized [id number] Authorized 04/29/2023 04/28/2024 10 10 Encounter Details Date Type Department Care Team (Latest Contact Info) Description 05/07/2023 11:53 AM CDT - 05/07/2023 4:36 PM CDT Hospital Encounter Department of Radiation Oncology in [place], [place] [address] [place] [phone] Radha Patterson M.D. 200 [place] [phone] Secondary Malignant Neoplasm Brain (HCC) Social History Tobacco Use Types Packs/Day Years Used Date Smoking Tobacco: Every Day Cigarettes 0.5 Smokeless Tobacco: Never Alcohol Use Standard Drinks/Week Comments Not Currently 0 (1 standard drink = 0.6 oz pur e alcohol) [facility] Utilities Answer Date Recorded In the past 12 months has e electric, gas, oil, or water [employer] threatened to shut off services in your [...] your living situation today? I have a [facility] place to live 05/07/2023 Sex and [...] (cGy) First Treatment Last Treatment Elapsed Days [id number] 05/06/2023 05/07/2023 1 Course [...] medications are managed by [facility] in [place]. Patient denies heada ches, nausea, vomiting or [...] Dr. Driver regarding upcoming scans scheduled at [facility] since brain MR is scheduled now for [...] AM CDT Telemedicine Department of Oncology in [place], [place] [address] [place] [phone] Mohinder Ariza M.D. [address] [place] [phone] 06/19/2023 2:00 PM CDT Appointment Department of Neurology in [place], [place] [address] [place] [phone] Darion Heaton M.D. [address] [place] [phone] Discharge Disposition: Home or Self Care 06/20/2023 10:00 AM CDT Comprehensive Visit Department of Neurology in [place], [place] [address] [place] [phone] Ej Senior M.B.B.S. [address] [place] [phone] 07/07/2023 1:15 PM CDT Clinical Communication Virtual Review in [place], [place] 200 [place] [address] 07/09/2023 11:15 AM CDT Appointment Department of Radiology, [facility] in [address] [phone] Mohinder Ariza M.D. [address] [place] [phone] 07/09/2023 4:00 PM CDT Office Visit Department of Neurology in [address] [phone] Mohinder Ariza M.D. [address] [place] [phone] Scheduled Orders Name Type Priority Associated Diagnoses [...]
--- OUTSIDE RECORDS SUMMARY | 2023-05-29 13:36 | XMS_ITS | Encounter Summary ---
Author Name Unknown Organization [facility] Address [address] [place] [address] Care Team Providers Care Cnc Machinist Name Role Phone Unavailable Primary Care Provider Unavailabl e Reason for Visit * Outpatient (Routine) - Closed Specialty Diagnoses / Procedures Referred By Randy christiansen Referred To Contact Neurology Mohinder Ariza M.D. [address] [place] [phone] [facility] Referral ID Status Reason Start Date Expiration Date Visits Re quested Visits Authorized [id number] Closed 05/01/2023 10/30/2024 1 1 Encounter Details Date Type Department Care Team (Late st Contact Info) Description 05/02/2023 11:40 AM CDT Telemedicine Department of Oncology in [place], [place] [address] [place] [phone] Mohinder Ariza M.D. [address] [place] [phone] Secondary Malignant Neoplasm Brain (HCC) (Primary Dx); [...] 05/27/2022 Other Patient presented to ED at [facility] for right-sided chest pain. Recommended follow up with supervisor pile driving for bronchoscopy based on imaging. 05/27/2022 Critical [...] Evaluated by Dr. Tita Driver, Medical Oncology [facility]. Recommended immediate radiation referral for brain metastases. [...] Critical Imaging The patient presented to the [facility] ER after experiencing a focal seizure in [...] AM CDT Telemedicine Department of Oncology in [place], [place] [address] [place] [phone] Mohinder Ariza M.D. [address] [place] [phone] 06/19/2023 2:00 PM CDT Appointment Department of Neurology in [place], [place] [address] [place] [phone] Darion Heaton M.D. [address] [place] [phone] Discharge Disposition: Home or Self Care 06/20/2023 10:00 AM CDT Comprehensive Visit Department of Neurology in [place], [place] [address] [place] [phone] Ej Senior M.B.B.S. [address] [place] [phone] 07/07/2023 1:15 PM CDT Clinical Communication Virtual Review in [place], [place] 200 [place] [address] 07/09/2023 11:15 AM CDT Appointment Department of Radiology, [facility] in [place], [place] [address] [place] [phone] Mohinder Ariza M.D. [address] [place] [phone] 07/09/2023 4:00 PM CDT Office Visit Department of Neurology in [address] [phone] Mohinder Ariza M.D. [address] [place] [phone] documented as of this encounter Visit Diagnoses Diagnosis Secondary Malignant Neoplasm Brain (HCC)- Primary Seizure (HCC) documented in this encounter
--- OUTSIDE RECORDS SUMMARY | 2023-05-29 13:37 | XMS_ITS | Encounter Summary ---
Author Name Unknown Organization [facility] Address [address] [place] [address] Care Team Providers Care Corporation Secretary Name Role Phone Unavailable Primary Care Provider Unavailabl e Reason for Referral * Outpatient (Routine) - Closed Specialty Diagnoses / Procedures Referred By Randy christiansen Referred To Contact Radiation Oncology Jane Tobar P.A.-C., M.SDaniel [address] [place] [phone] Radha Patterson M.D. [address] [place] [phone] Referral ID Status Reason Start Date Expiration Date Visits Re quested Visits Authorized [id number] Closed 04/29/2023 10/28/2024 1 1 Scheduling Instructions MRI brain at [facility] - ordered by ER physician; please get images and report; please wait to schedule - pending imaging review by ananya SHAH and kit on 05/01/23 Reason for Visit * Outpatient (Routine) - Closed Specialty Diagnoses / Procedures Referred By Contac t Referred To Contact Radiation Oncology Jane Tobar P.A.-C., M.SDaniel [address] [place] [phone] Radha Patterson M.D. [address] [place] [phone] Referral ID Status Reason Start Date Expiration Date Visits Re quested Visits Authorized [id number] Closed 04/29/2023 10/28/2024 1 1 Encounter Details Date Type Department Care Team (Latest Contact Info) Description 05/01/2023 7:41 AM CDT - 05/01/2023 8:29 AM CDT Hospital Encounter Department of Radiation Oncology in [place], [place] [address] [place] [address] Radha Patterson M.D. [address] [place] [phone] Malignant Neoplasm Of Lung Small Cell Right [...] times a day with meals. 0 04/24/2023 ibuprofen (ADVIL,MOTRIN) 200 mg tablet Take 200 [...] 05/27/2022 Other Patient presented to ED at [facility] for right-sided chest pain. Recommended follow up with weatherstrip machine operator for bronchoscopy based on imaging. 05/27/2022 Critical [...] Evaluated by Dr. Tita Driver, Medical Oncology [facility]. Recommended immediate radiation referral for brain [...] Critical Imaging The patient presented to the [facility] ER after experiencing a focal seizure [...] the right hand.Patient was able to complete lmqcni-cv-hede, slwa-dl-vyoe, and rapid alternating movements, but didneed erxq-ht-rilc instructions for dhpxui-lt-tmci. Recall 3/3 words. Gait is normal. ASSESSMENT [...] revealed at least seven brain lesions. [facility] also [...] Tobar P.A.-C., M.S. 05/01/2023 1:10 PM CDT [facility] [address] [place] [address] ADDENDUM: I received a reply from Dr. [...] service. I reviewed thedocumentation of Ms. Jane JERRY Tobar, MS and agree with the findings and plan. Please see Daniel 's detailed note for the patient's initial presentation [...] therapy. Wediscussed the acute as well as assisted risks, including, but not limited to fatigue, [...] this to her. My thanks to Neisha Hurst and Bassem for the opportunity to participate [...] AM CDT Telemedicine Department of Oncology in [address] [phone] Mohinder Ariza M.D. [address] [place] [phone] 06/19/2023 2:00 PM CDT Appointment Department of Neurology in [address] [phone] Darion Heaton M.D. [address] [place] [phone] Discharge Disposition: Home or Self Care 06/20/2023 10:00 AM CDT Comprehensive Visit Department of Neurology in [address] [phone] Ej Senior M.B.B.S. [address] [place] [phone] 07/07/2023 1:15 PM CDT Clinical Communication Virtual Review in [place], [place] 200 [place] [address] 07/09/2023 11:15 AM CDT Appointment Department of Radiology, [facility] in [address] [address] Mohinder Ariza M.D. [address] [place] [phone] 07/09/2023 4:00 PM CDT Office Visit Department of Neurology in [place], [place] 200 [place] [address] Mohinder Ariza M.D. 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
--- OUTSIDE RECORDS SUMMARY | 2023-05-29 13:37 | XMS_ITS | Encounter Summary ---
Author Name Unknown Organization [facility] Address [address] [place] [address] Care Team Providers Care Business Reporting Developer Name Role Phone Unavailable Primary Care Provider Unavailabl e Reason for Visit * Reason Comments Med Refill Encounter Details Date Type Department Care Team ( Contact Info) Description 03/31/2023 Refill Department of Neurology in [place], [place] [address] [place] [phone] Mohinder Ariza M.D. [address] [place] [phone] Med Refill Social History Tobacco Use Types [...] AM CDT Telemedicine Department of Oncology in [place], [place] [address] [place] [phone] Mohinder Ariza M.D. [address] [place] [phone] 06/19/2023 2:00 PM CDT Appointment Department of Neurology in [place], [place] [address] [place] [phone] Darion Heaton M.D. [address] [place] [phone] Discharge Disposition: Home or Self Care 06/20/2023 10:00 AM CDT Comprehensive Visit Department of Neurology in [place], [place] [address] [place] [phone] Ej Senior M.B.B.S. [address] [place] [phone] 07/07/2023 1:15 PM CDT Clinical Communication Virtual Review in [place], [place] 200 [place] [address] 07/09/2023 11:15 AM CDT Appointment Department of Radiology, [facility] in [place], [place] [address] [place] [phone] Mohinder Ariza M.D. [address] [place] [phone] 07/09/2023 4:00 PM CDT Office Visit Department of Neurology in [place], [place] [address] [place] [phone] Mohinder Ariza M.D. [address] [place] [phone] documented as of this encounter Visit Diagnoses Not on filedocumented in this encounter
--- OUTSIDE RECORDS SUMMARY | 2023-05-29 13:37 | XMS_ITS | Encounter Summary ---
Author Name Unknown Organization [facility] Address [address] [place] [address] Care Team Providers Care Retail Support Specialist Name Role Phone Unavailable Primary Care Provider Unavailabl e Encounter Details Date Type Department Care Team (Latest Contact Info) Description 04/30/2023 9:50 PM CDT Ancillary Procedure Department of Radiology in [place], [place] [address] [place] [phone] Radha Patterson M.D. [address] [place] [phone] Secondary Malignant Neoplasm Brain (HCC) Social History [...] AM CDT Telemedicine Department of Oncology in [place], [place] [address] [place] [phone] Mohinder Ariza M.D. [address] [place] [phone] 06/19/2023 2:00 PM CDT Appointment Department of Neurology in [address] [phone] Darion Heaton M.D. [address] [place] [phone] Discharge Disposition: Home or Self Care 06/20/2023 10:00 AM CDT Comprehensive Visit Department of Neurology in [address] [address] Ej Senior M.B.B.S. [address] [place] [phone] 07/07/2023 1:15 PM CDT Clinical Communication Virtual Review in [place], [place] 200 [place] [address] 07/09/2023 11:15 AM CDT Appointment Department of Radiology, [facility] in [address] [phone] Mohinder Ariza M.D. [address] [place] [phone] 07/09/2023 4:00 PM CDT Office Visit Department of Neurology in [address] [phone] Mohinder Ariza M.D. [address] [place] [phone] documented as of this encounter Procedures Procedure [...]
--- OUTSIDE RECORDS SUMMARY | 2023-05-29 13:37 | XMS_ITS | Encounter Summary ---
Author Name Unknown Organization [facility] Address [address] [place] [address] Care Team Providers Care It Applications Analyst Name Role Phone Unavailable Primary Care Provider Unavailabl e Encounter Details Date Type Department Care Team ( st Contact Info) Description 04/30/2023 Orders Only Department of Radiation Oncology in [place], [place] [address] [place] [phone] Radha Patterson M.D. [address] [place] [phone] Secondary Malignant Neoplasm Brain (HCC) (Primary Dx) [...] AM CDT Telemedicine Department of Oncology in [place], [place] [address] [place] [phone] Mohinder Ariza M.D. [address] [place] [phone] 06/19/2023 2:00 PM CDT Appointment Department of Neurology in [address] [phone] Darino Heaton M.D. [address] [place] [phone] Discharge Disposition: Home or Self Care 06/20/2023 10:00 AM CDT Comprehensive Visit Department of Neurology in [address] [phone] Ej Senior M.B.B.S. [address] [place] [phone] 07/07/2023 1:15 PM CDT Clinical Communication Virtual Review in [place], [place] 200 [place] [address] 07/09/2023 11:15 AM CDT Appointment Department of Radiology, [facility] in [address] [phone] Mohinder Ariza M.D. [address] [place] [phone] 07/09/2023 4:00 PM CDT Office Visit Department of Neurology in [address] [phone] Mohinder Ariza M.D. [address] [place] [phone] documented as of this encounter Results * [...]
--- OUTSIDE RECORDS SUMMARY | 2023-05-29 13:37 | XMS_ITS | Encounter Summary ---
Author Name Unknown Organization [facility] Address [address] [place] [address] Care Team Providers Care Rodent Control Worker Name Role Phone Unavailable Primary Care Provider Unavailabl e Reason for Referral * Outpatient (Routine) - Authorized Specialty Diagnoses / Procedures Referred By Contac t Referred To Contact Radiation Oncology Radha Patterson M.D. [address] [place] [phone] [facility] Region Referral ID Status Reason Start Date Expiration Date V isits Requested Visits Authorized [id number] Authorized 04/29/2023 10/28/2024 10 10 * Radiation Therapy (Routine) - Authorized Specialty Diagnoses / Procedures Referred By Contac t Referred To Contact Diagnoses Secondary Malignant Neoplasm Brain (HCC) Procedures Management Visit Radha Patterson M.D. [address] [place] [phone] [facility] Region Referral ID Status Reason Start Date Expiration Date V isits Requested Visits Authorized [id number] Authorized 04/29/2023 04/28/2024 10 10 * Radiation Therapy (Routine) - Closed Specialty Diagnoses / Procedures Referred By Contac t Referred To Contact Diagnoses Secondary Malignant Neoplasm Brain (HCC) Procedures Prior Auth Rad Tx [place] STEREOTACTIC BODY RADTN DEL SRT Radha Patterson M.D. [address] [place] [phone] [facility] Referral ID Status Reason Start Date Expiration Date Visits Re quested Visits Authorized [id number] Closed 04/30/2023 02/17/2024 3 3 * Radiation Therapy (Routine) - Closed Specialty Diagnoses / Procedures Referred By Randy christiansen Referred To Contact Diagnoses Secondary Malignant Neoplasm Brain (HCC) Procedures Initial Rad Onc Treatment Planning CT Simulation Radha Patterson M.D. [address] [place] [phone] [facility] Referral ID Status Reason Start Date Expiration Date Visits Re quested Visits Authorized [id number] Closed 04/29/2023 04/28/2024 1 1 Encounter Details Date Type Department Care Team (Late st Contact Info) Description 04/29/2023 Clinical Communication Department of Radiation Oncology in [place], [place] [address] [place] [address] Jane Tobar P.A.-C., M.S. [address] [place] [phone] Social History Tobacco Use Types Packs/Day Years [...] a phone from Dr. Curtis at the [facility] ER today regarding this patient. The patient [...] AM CDT Telemedicine Department of Oncology in [place], [place] [address] [place] [phone] Mohinder Ariza M.D. [address] [place] [phone] 06/19/2023 2:00 PM CDT Appointment Department of Neurology in [place], [place] [address] [place] [phone] Darion Heaton M.D. [address] [place] [phone] Discharge Disposition: Home or Self Care 06/20/2023 10:00 AM CDT Comprehensive Visit Department of Neurology in [address] [phone] Ej Senior M.B.B.SDaniel [address] [place] [phone] 07/07/2023 1:15 PM CDT Clinical Communication Virtual Review in [place], [place] 200 [place] [address] 07/09/2023 11:15 AM CDT Appointment Department of Radiology, [facility] in [address] [address] Mohinder Ariza M.D. [address] [place] [phone] 07/09/2023 4:00 PM CDT Office Visit Department of Neurology in [address] [address] Mohinder Ariza M.D. [address] [place] [phone] Scheduled Orders Name Type Priority Associated Diagnoses [...]
--- OUTSIDE RECORDS SUMMARY | 2023-05-29 13:37 | XMS_ITS | Encounter Summary ---
Author Name Unknown Organization [facility] Address [address] [place] [address] Care Team Providers Care Architectural Job Captain Name Role Phone Unavailable Primary Care Provider Unavailabl e Encounter Details Date Type Department Care Team (Late st Contact Info) Description 02/03/2023 Documentation Department of Radiation Oncology in [place], [place] [address] [place] [phone] Radha Patterson M.D. [address] [place] [phone] Social History Tobacco Use Types Packs/Day Years [...] Geraldine Chang R.N. - 02/03/2023 11:59 PM TOOL ANALYST DIAGNOSIS: 1. 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 Treatment Intent: Palliative Concomitant Therapy: None Single Plan Treatment Course: 2xMultiSite Plan ID Fractions Dose / Fraction (cGy) Dose Treated (cGy) Dose Planned (cGy) First Treatment Last Treatment Elapsed Days [id number] 400 2000 2000 01/21/2023 01/27/2023 6 [id number] 300 3000 3000 01/21/2023 02/03/2023 13 Course [...] by: Geraldine Chang R.N., 03/04/2023 12:57 PM TOOL ANALYST [facility] [address] [place] [address] ANALYST documented in this encounter Plan of Treatment Upcoming Encounters Date Type Department Care Team (Latest Contact Info) Description 05/30/2023 8:00 AM CDT Telemedicine Department of Oncology in [place], [place] [address] [place] [phone] Mohinder Ariza M.D. [address] [place] [phone] 06/19/2023 2:00 PM CDT Appointment Department of Neurology in [place], [place] [address] [place] [phone] Dairon Heaton M.D. [address] [place] [phone] Discharge Disposition: Home or Self Care 06/20/2023 10:00 AM CDT Comprehensive Visit Department of Neurology in [place], [place] [address] [place] [phone] Ej Senior M.B.B.S. [address] [place] [phone] 07/07/2023 1:15 PM CDT Clinical Communication Virtual Review in [place], [place] 200 [place] [address] 07/09/2023 11:15 AM CDT Appointment Department of Radiology, [facility] in [place], [place] [address] [place] [phone] Mohinder Ariza M.D. [address] [place] [phone] 07/09/2023 4:00 PM CDT Office Visit Department of Neurology in [place], [place] [address] [place] [phone] Mohinder Ariza M.D. 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
--- OUTSIDE RECORDS SUMMARY | 2023-05-29 13:37 | XMS_ITS | Encounter Summary ---
Author Name Unknown Organization [facility] Address [address] [place] [address] Care Team Providers Care Mission Systems Engineer Name Role Phone Unavailable Primary Care Provider Unavailabl e Encounter Details Date Type Department Care Team ( Contact Info) Description 03/31/2023 Orders Only Department of Oncology in [place], [place] [address] [place] [phone] Mohinder Ariza M.D. [address] [place] [phone] Social History Tobacco Use Types Packs/Day Years [...] AM CDT Telemedicine Department of Oncology in [place], [place] [address] [place] [phone] Mohinder Ariza M.D. [address] [place] [phone] 06/19/2023 2:00 PM CDT Appointment Department of Neurology in [place], [place] [address] [place] [phone] Darion Heaton M.D. [address] [place] [phone] Discharge Disposition: Home or Self Care 06/20/2023 10:00 AM CDT Comprehensive Visit Department of Neurology in [place], [place] [address] [place] [phone] Ej Senior M.B.B.S. [address] [place] [phone] 07/07/2023 1:15 PM CDT Clinical Communication Virtual Review in [place], [place] 200 [place] [address] 07/09/2023 11:15 AM CDT Appointment Department of Radiology, [facility] in [place], [place] [address] [place] [phone] Mohinder Ariza M.D. [address] [place] [phone] 07/09/2023 4:00 PM CDT Office Visit Department of Neurology in [place], [place] [address] [place] [phone] Mohinder Ariza M.D. [address] [place] [phone] documented as of this encounter Visit Diagnoses Not on filedocumented in this encounter
--- OUTSIDE RECORDS SUMMARY | 2023-05-29 13:37 | XMS_ITS | Encounter Summary ---
Author Name Unknown Organization [facility] Address [address] [place] [address] Care Team Providers Care Consumer Services Consultant Name Role Phone Unavailable Primary Care Provider Unavailabl e Reason for Visit * Reason Comments Med Change Request Encounter Details Date Type Department Care Team ( Contact Info) Description 02/27/2023 Refill Department of Radiation Oncology in [place], [place] [address] [place] [phone] Marnie Schultz APRN, C.N.P., D.N.P. [address] [place] [phone] Med Change Request Social History Tobacco Use [...] AM CDT Telemedicine Department of Oncology in [place], [place] [address] [place] [phone] Mohinder Ariza M.D. [address] [place] [phone] 06/19/2023 2:00 PM CDT Appointment Department of Neurology in [address] [phone] Darion Heaton M.D. [address] [place] [phone] Discharge Disposition: Home or Self Care 06/20/2023 10:00 AM CDT Comprehensive Visit Department of Neurology in [address] [phone] Ej Senior M.B.B.S. [address] [place] [phone] 07/07/2023 1:15 PM CDT Clinical Communication Virtual Review in [place], [place] 200 [place] [address] 07/09/2023 11:15 AM CDT Appointment Department of Radiology, [facility] in [address] [phone] Mohinder Ariza M.D. [address] [place] [phone] 07/09/2023 4:00 PM CDT Office Visit Department of Neurology in [address] [phone] Mohinder Ariza M.D. [address] [place] [phone] documented as of this encounter Visit Diagnoses Not on filedocumented in this encounter
--- OUTSIDE RECORDS SUMMARY | 2023-05-29 13:37 | XMS_ITS | Encounter Summary ---
Author Name Unknown Organization [facility] Address [address] [place] [address] Care Team Providers Care Duct Maker Name Role Phone Unavailable Primary Care Provider Unavailabl e Reason for Referral * Outpatient (Routine) - Closed Specialty Diagnoses / Procedures Referred By Randy christiansen Referred To Contact Radiation Oncology Jane Tobar P.A.-C., M.S. [address] [place] [phone] Radha Patterson M.D. [address] [place] [phone] Referral ID Status Reason Start Date Expiration Date Visits Re quested Visits Authorized [id number] Closed 04/29/2023 10/28/2024 1 1 Scheduling Instructions MRI brain at [facility] - ordered by ER physician; please get images and report; please wait to schedule - pending imaging review by ananya SHAH and kit on 05/01/23 Encounter Details Date Type Department Care Team (Late st Contact Info) Description 04/29/2023 Orders Only Department of Radiation Oncology in [place], [place] [address] [place] [phone] Jane Tobar P.A.-C., M.S. [address] [place] [phone] Malignant Neoplasm Of Lung Small Cell Right [...] AM CDT Telemedicine Department of Oncology in [address] [phone] Mohinder Ariza M.D. [address] [place] [phone] 06/19/2023 2:00 PM CDT Appointment Department of Neurology in [address] [phone] Darion Heaton M.D. [address] [place] [phone] Discharge Disposition: Home or Self Care 06/20/2023 10:00 AM CDT Comprehensive Visit Department of Neurology in [address] [phone] Ej Senior M.B.B.S. [address] [place] [phone] 07/07/2023 1:15 PM CDT Clinical Communication Virtual Review in [address] [address] 07/09/2023 11:15 AM CDT Appointment Department of Radiology, [facility] in [place], [place] [address] [place] [address] Mohinder Ariza M.D. [address] [place] [phone] 07/09/2023 4:00 PM CDT Office Visit Department of Neurology in [place], [place] [address] [place] [address] Mohinder Ariza M.D. 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
--- OUTSIDE RECORDS SUMMARY | 2023-05-29 13:39 | XMS_ITS | Clinical Summary ---
Author Name Unknown Organization [facility] [employer] [facility] Address [place], [place] [address] Care Team Providers Care [employer] Science Tutor Name Role Phone Andres Trimble MD Primary Care Provider + Ceci Sanders RN, BSN Unavailable [phone] Allergies No known active allergies Medications [...] Comments Blood Pressure 120/74 02/04/2023 2:54 PM SEWING MACHINE REPAIRER Pulse 60 02/04/2023 2:54 PM SEWING MACHINE REPAIRER Temperature 36.6 ??C (97.8 ??F) 06/17/2022 1 1:40 AM CDT Respiratory Rate 18 06/17/2022 12:2 5 PM CDT Oxygen Saturation 99% 02/04/2023 2:54 PM SEWING MACHINE REPAIRER Inhaled Oxygen Concentration - - Weight 68.4 kg (150 lb 14.4 oz) 02/04/2023 2:54 PM SEWING MACHINE REPAIRER Height 170.2 cm (5' 7) 06/14/2022 12:0 [...] SCREEN FFDM (IA) Routine 02/08/2009 9:12 AM SEWING MACHINE REPAIRER Other Screening Mammogram LIPID PANEL Routine 02/08/2009 8:53 AM SEWING MACHINE REPAIRER Well [facility] Exam from Last 3 Months or Most Recently Relevant to Health Maintenance Results * HPV HIGH RISK (08/14/2021 8:15 AM CDT) TYPE 16 Negative Negative 08/16/2021 4:43 PM CDT [facility] TYPE 18 Negative Negative 08/16/2021 4:43 PM CDT [facility] OTHER HIGH RISK TYPES Negative Negative 08/16/2021 4:43 PM CDT [facility] Other (Cervical/Vagina l) 08/14/2021 8:15 AM CDT 08/15/2021 7:46 AM CDT Narrative [facility] - 08/16/2021 4:43 PM CDT HPV types 16, 18, 31, 33, 35, 39, 45, 51, 52, 56, 58, 59, 66 and 68 DNA were undetectable or below the pre-set threshold. Methodology: James José Miguel 4800 HPV Test Andres Trimble MD MICROBIOLOGY [facility] [address] [place] [address], [place] * XR MAMMO BILAT SCREEN FFDM (02/08/2009 9:12 AM SEWING MACHINE REPAIRER) MAMMOGRAM ACR 2 Benign Finding Anatomical Region Laterality Modality BREASTS, Breast Left, Breast Right Bilateral Mammography 02/08/2009 9:12 AM SEWING MACHINE REPAIRER Narrative 02/08/2009 3:26 PM SEWING MACHINE REPAIRER Benign findings noted on mammogram. ??For complete [...] * (ABNORMAL) LIPID PANEL (02/08/2009 8:53 AM SEWING MACHINE REPAIRER) CHOLESTEROL,TOTAL 239(H) 110 - 199 mg/dL [facility] TRIGLYCERIDES 164(H) <150 mg/dL [facility] HDL CHOLESTEROL 60 >40 mg/dL [facility] CHOL/HDL RATIO 3.98 <4.51 [facility] LDL CHOLESTEROL 146(H) <131 mg/dL [facility] PATIENT STATUS Fasting [facility] Blood specimen (specimen) BLOOD SPECIMEN / Unknown 02/08/2009 8:53 AM SEWING MACHINE REPAIRER 02/08/2009 8:49 AM SEWING MACHINE REPAIRER Lexi Shirley MD CHEMISTRY [facility] [address] [place] [address] from Last 3 Months or Most Recently Relevant to Health Maintenance Advance Directives * Full Code (Latest Code Status on File) Date Activated Date Inactivated Comments 06/17/2022 10:00 AM 06/17/2022 2:54 PM Question Answer Comments Code Status Discussion: Reviewed Preferences Care Teams [employer] Science Tutor Relationship Specialty Start Date End Date Andres Trimble MD [address] [place] [address] PCP - General Family Practice 02/04/19 Ceci Sanders, RN, BSN [address] [address] Nurse Navigator - Oncology Registered Nurse 06/18/22
--- NOTE | 2023-05-29 14:45 | PE_ITS ---
[facility] [address] [facility] [address] Phone:?[phone] Fax:?[phone] Referring Physician Information: Lakia Remy PA-C [address] [facility] [address] Phone:?[phone] Fax:?[phone] Patient:Mauro Manjarrez D.O.B:?1965 Sex:?Female Phone:?[phone] [facility] MRN:?[id number] Exam Date:?05/29/2023 EXAM: PET/CT EYES TO THIGHS, CANCER RESTAGING CLINICAL INFORMATION: Metastatic lung cancer. TECHNICAL INFORMATION: Helical acquisition of data was obtained from the orbits to the upper thighs with reconstruction of 3.75 mm thick images at 3.[address] data was used for attenuation correction. PET scanning was performed through the same anatomic range 60 minutes following administration of 12.4 mCi of 18-FDG delivered intravenously. The patient's glucose at the time of the injection was 104 mg/dL. PET, CT and PET/CT fusion images are interpreted using a computer viewing workstation. PET, CT and PET/CT fusion images were archived and saved in the patient's permanent medical record. COMPARISON: Brain MRI from 05/28/2023, CT CAP from 04/10/2023. PET-CT from 06/13/2022. INTERPRETATION: Head and Neck: There are no abnormal hypermetabolic foci within the visualized portions of the head or neck. There is physiologic uptake in the intracranial soft tissues. Chest: Right infrahilar uptake (Se 2 Im 106) has a maximum SUV of 4.69 and measures roughly 1.2 x 1.2 cm, grossly stable since the most recent diagnostic chest CT. On the comparison PET-CT from May 2022, the lesion measured roughly 6 x 7 cm with maximum SUV of 28.7. Prior hypermetabolic right pleural effusion has resolved since the prior PET-CT. There are no other abnormal hypermetabolic foci within the chest. Background mediastinal blood pool uptake has a maximum SUV of 2.6. No new lung nodules or masses detected on this free-breathing exam. No lymphadenopathy detected. Abdomen and Pelvis: Known right adrenal metastasis (Se 2 Im 140) measures 1.3 x 1.0 cm with a maximum SUV of 14.04. Its appearance is essentially unchanged when compared to the most recent diagnostic abdominopelvic CT. On the prior PET-CT it measured 1.0 cm with maximum SUV of 11.5. There are no other abnormal hypermetabolic foci within the abdomen or pelvis. (On the prior PET-CT, there was hypermetabolic portocaval and left-paraaortic lymphadenopathy, as well as hypermetabolic renal nodules; these have no present visible correlate.) Background hepatic parenchymal uptake has a maximum SUV of 3.48. There is physiologic excretion of radiotracer in the urine and bowel. Skeleton, Musculature, and Integument: No abnormal hypermetabolic foci within the skeleton. No branden osteoblastic or osteolytic disease. CONCLUSION: There is residual viable malignancy within the patient's known right infrahilar pulmonary lesion and known right adrenal metastasis. Overall appearance is stable compared to the CT from Mar 2023 and the extent/degree of metabolic activity has improved since the PET-CT from May 2022. No new sites of disease from the skull base to mid-thighs. Electronically signed on 06/02/2023 10:27:00 AM by Darion Zelaya M.D.
== END 2023-05-29 13:33 | disposition home or self-care (01) ==
LOC: RAD 13:33
PROVIDERS: PCP Family Medicine; Visit Provider Internal Medicine Hematology & Oncology
DX: C34.31 Malignant neoplasm of lower lobe, right bronchus or lung (principal); C79.71 Secondary malignant neoplasm of right adrenal gland
CPT/HCPCS: 78815; A9552

== ENCOUNTER 2023-06-20 14:00 | Outpatient (RCR) | payer BC, SELFPAY ==
[2022-12-23 13:41] LABS: Basophils Absolute Auto 0.02 K/uL (0.00-0.30); Basophils Percent Auto 0.3 % (0.0-3.0); Eosinophils Absolute Auto 0.11 K/uL (0.00-0.50); Eosinophils Percent Auto 1.8 % (0.0-7.0); Hematocrit 38.5 % (33.0-51.0); Hemoglobin* 12.3 gm/dL (12.0-16.0); Immature Granulocytes Abs Auto 0.02 K/uL (0.00-0.30); Immature Granulocytes Pct Auto 0.3 %; Lymphocytes Absolute Auto 1.42 K/uL (0.90-2.90); Lymphocytes Percent Auto 23.7 % (20-44); Mean Corpuscular HGB Conc 32 gm/dL (32-36); Mean Corpuscular Hemoglobin 31 pg (26-34); Mean Corpuscular Volume 96 fL (80-100); Monocytes Percent Auto 7.7 % (0.0-11.0); Neutrophils Absolute Auto 3.95 K/uL (1.7-7.0); Neutrophils Percent Auto 66.2 % (42.0-72.0); Platelet Count* 246 K/uL (140-440); RDW Coefficient of Variation % 13.6 % (11.5-15.5); White Blood Count* 5.98 K/uL (4.50-11.00)
[2022-12-23 13:42] LABS: Slide Review Reflex No
[2022-12-23 13:57] LABS: Albumin* 4.3 g/dL (3.3-5.0); Chloride* 106 mmol/L (96-114)
[2022-12-23 13:58] LABS: Potassium* 3.7 mmol/L (3.6-5.1); Sodium* 142 mmol/L (135-149)
[2022-12-23 14:00] LABS: Anion Gap 8 mEq/L (7-15); Aspartate Amino Transferase* 30 U/L (12-35); Bilirubin Total* 0.2 mg/dL (0.1-1.5); Carbon Dioxide* 28 mmol/L (20-32); Creatinine* 0.6 mg/dL (0.5-1.5); Estimated Glomerular Filt Rate 103 ml/min; Total Protein* 7.2 g/dL (6.0-8.3)
[2022-12-23 14:01] LABS: Alanine Aminotransferase* 18 U/L (4-35); Alkaline Phosphatase* 65 U/L (40-150); Blood Urea Nitrogen* 14 mg/dL (7-30); Glucose* 79 mg/dL (60-115)
[2022-12-24 10:11] VITALS: BP 122/82; PULSE 67; RESP 16; TEMP 37.2; O2SAT 97
[2022-12-24] MEDS: SODIUM CHLORIDE 0.9 % (FLUSH) 10 ML SYRINGE IVF ×2 (10:15→11:00)
[2022-12-24] MEDS: HEPARIN 500 UNIT/5 ML SYRINGE IVF (11:00)
[2022-12-25 07:08] LABS: Cortisol, Serum 9.9 ug/dL
[2023-01-13 09:07] LABS: Basophils Absolute Auto 0.01 K/uL (0.00-0.30); Basophils Percent Auto 0.2 % (0.0-3.0); Eosinophils Absolute Auto 0.09 K/uL (0.00-0.50); Eosinophils Percent Auto 1.6 % (0.0-7.0); Hematocrit 39.2 % (33.0-51.0); Hemoglobin* 12.8 gm/dL (12.0-16.0); Immature Granulocytes Abs Auto 0.01 K/uL (0.00-0.30); Immature Granulocytes Pct Auto 0.2 %; Lymphocytes Absolute Auto 1.23 K/uL (0.90-2.90); Lymphocytes Percent Auto 21.6 % (20-44); Mean Corpuscular HGB Conc 33 gm/dL (32-36); Mean Corpuscular Hemoglobin 31 pg (26-34); Mean Corpuscular Volume 93 fL (80-100); Monocytes Percent Auto 6.7 % (0.0-11.0); Neutrophils Absolute Auto 3.98 K/uL (1.7-7.0); Neutrophils Percent Auto 69.7 % (42.0-72.0); Platelet Count* 239 K/uL (140-440); RDW Coefficient of Variation % 13.7 % (11.5-15.5)
[2023-01-13 09:11] LABS: Slide Review Reflex No
[2023-01-13 09:18] LABS: Albumin* 4.8 g/dL (3.3-5.0); Chloride* 107 mmol/L (96-114); Sodium* 141 mmol/L (135-149)
[2023-01-13 09:20] LABS: Anion Gap 9 mEq/L (7-15); Bilirubin Total* 0.2 mg/dL (0.1-1.5); Carbon Dioxide* 25 mmol/L (20-32); Creatinine* 0.8 mg/dL (0.5-1.5); Estimated Glomerular Filt Rate 85 ml/min
[2023-01-13 09:21] LABS: Alanine Aminotransferase* 17 U/L (4-35); Alkaline Phosphatase* 69 U/L (40-150); Aspartate Amino Transferase* 23 U/L (12-35); Blood Urea Nitrogen* 16 mg/dL (7-30); Calcium* 9.3 mg/dL (8.4-10.6); Glucose* 97 mg/dL (60-115); Total Protein* 7.6 g/dL (6.0-8.3)
--- NOTE | 2023-01-17 11:52 | URNOTE ---
Received request for Tencentriq (Atezolizumab) (J9022), Lurbinectedin (Zepzelca) (J9223), Pegfilgrastim (Neulasta Onpro) (J2506), Palonosetron (J2469). This has been approved by [email or web address] on behalf of Danika Rivera as follows: Tencentriq (Atezolizumab) (J9022) Canceled PA, medication d/c per Dr. Driver. Lurbinectedin (Zepzelca) (J9223), 5.7mg every 21 days for 18 visits, from 01/20/23 to 10/20/23. Order ID [id number]. Pegfilgrastim (Neulasta Onpro) (J2506), 6mg every 21 days for 13 visits, from 01/15/23 to 01/16/24. Order ID [id number]. Palonosetron (J2469) prior authorization not required date range 01/15/23 to 01/15/24. Order ID [id number].
--- NOTE | 2023-01-17 12:23 | ONC.NURNOTE ---
fitness for duty form faxed to Oziel gracia per her request
--- NOTE | 2023-01-22 11:48 | ONC.NURNOTE ---
refaxed the return to work form. pt called and aware.
[2023-02-18] MEDS: SODIUM CHLORIDE 0.9 % (FLUSH) 10 ML SYRINGE IVF ×2 (09:04→12:22)
[2023-02-18 09:08] LABS: Basophils Absolute Auto 0.02 K/uL (0.00-0.30); Basophils Percent Auto 0.3 % (0.0-3.0); Eosinophils Absolute Auto 0.09 K/uL (0.00-0.50); Eosinophils Percent Auto 1.1 % (0.0-7.0); Hematocrit 35.4 % (33.0-51.0); Hemoglobin* 11.6 gm/dL (12.0-16.0); Immature Granulocytes Abs Auto 0.01 K/uL (0.00-0.30); Immature Granulocytes Pct Auto 0.1 %; Mean Corpuscular HGB Conc 33 gm/dL (32-36); Mean Corpuscular Hemoglobin 31 pg (26-34); Mean Corpuscular Volume 93 fL (80-100); Monocytes Percent Auto 8.4 % (0.0-11.0); Neutrophils Percent Auto 82.1 % (42.0-72.0); Platelet Count* 175 K/uL (140-440); RDW Coefficient of Variation % 15.2 % (11.5-15.5); Red Blood Count 3.79 m/uL (4.00-5.20); White Blood Count* 7.99 K/uL (4.50-11.00)
[2023-02-18 09:16] LABS: Slide Review Reflex No
[2023-02-18 09:22] LABS: Albumin* 4.7 g/dL (3.3-5.0); Chloride* 105 mmol/L (96-114)
[2023-02-18 09:23] LABS: Potassium* 3.7 mmol/L (3.6-5.1); Sodium* 138 mmol/L (135-149)
[2023-02-18 09:25] LABS: Anion Gap 10 mEq/L (7-15); Aspartate Amino Transferase* 24 U/L (12-35); Bilirubin Total* 0.2 mg/dL (0.1-1.5); Carbon Dioxide* 23 mmol/L (20-32); Creatinine* 0.8 mg/dL (0.5-1.5); Estimated Glomerular Filt Rate 85 ml/min; Total Protein* 7.1 g/dL (6.0-8.3)
[2023-02-18 09:26] LABS: Alanine Aminotransferase* 19 U/L (4-35); Alkaline Phosphatase* 63 U/L (40-150); Blood Urea Nitrogen* 17 mg/dL (7-30); Glucose* 100 mg/dL (60-115)
[2023-02-18] MEDS: dexAMETHasone 20 MG in 0.9 % SODIUM CHLORIDE 100 ml 100 ML 420 MG IVPB (10:47)
[2023-02-18] MEDS: 0.9 % SODIUM CHLORIDE 250 ml IV (10:47)
[2023-02-18] MEDS: PALONOSETRON 0.25 MG/5 ML inj IV (10:48)
[2023-02-18] MEDS: HEPARIN 500 UNIT/5 ML SYRINGE IVF (12:22)
--- NOTE | 2023-02-19 15:06 | ONC.NURNOTE ---
Credit Risk Review Officer called pt to see how she was feeling after 1st Lurbinectedin on 02/18/23. Pt states she is doing well and has no concerns at this time. Pt instructed to call [facility] if she has any questions or concerns.
[2023-02-19 16:43] LABS: Free T3 2.5 pg/mL (2.5-4.3)
[2023-03-07 14:44] LABS: Basophils Absolute Auto 0.04 K/uL (0.00-0.30); Basophils Percent Auto 0.4 % (0.0-3.0); Eosinophils Absolute Auto 0.05 K/uL (0.00-0.50); Eosinophils Percent Auto 0.6 % (0.0-7.0); Hematocrit 36.3 % (33.0-51.0); Hemoglobin* 11.9 gm/dL (12.0-16.0); Immature Granulocytes Abs Auto 0.05 K/uL (0.00-0.30); Immature Granulocytes Pct Auto 0.6 %; Lymphocytes Percent Auto 7.8 % (20-44); Mean Corpuscular HGB Conc 33 gm/dL (32-36); Mean Corpuscular Hemoglobin 32 pg (26-34); Mean Corpuscular Volume 96 fL (80-100); Monocytes Percent Auto 9.3 % (0.0-11.0); Neutrophils Percent Auto 81.3 % (42.0-72.0); Platelet Count* 253 K/uL (140-440); RDW Coefficient of Variation % 16.1 % (11.5-15.5); Red Blood Count 3.77 m/uL (4.00-5.20); White Blood Count* 8.92 K/uL (4.50-11.00)
[2023-03-07 14:46] LABS: Slide Review Reflex No
[2023-03-07 15:04] LABS: Chloride* 104 mmol/L (96-114)
[2023-03-07 15:05] LABS: Albumin* 4.7 g/dL (3.3-5.0); Potassium* 3.8 mmol/L (3.6-5.1); Sodium* 141 mmol/L (135-149)
[2023-03-07 15:08] LABS: Alanine Aminotransferase* 15 U/L (4-35); Alkaline Phosphatase* 72 U/L (40-150); Anion Gap 9 mEq/L (7-15); Aspartate Amino Transferase* 20 U/L (12-35); Bilirubin Total* 0.2 mg/dL (0.1-1.5); Blood Urea Nitrogen* 20 mg/dL (7-30); Carbon Dioxide* 28 mmol/L (20-32); Creatinine* 0.8 mg/dL (0.5-1.5); Estimated Glomerular Filt Rate 85 ml/min; Glucose* 101 mg/dL (60-115); Total Protein* 7.4 g/dL (6.0-8.3)
[2023-03-07 15:09] LABS: Calcium* 9.3 mg/dL (8.4-10.6)
[2023-03-10 09:00] VITALS: BP 125/80; PULSE 60; RESP 15; TEMP 35.5; O2SAT 99
[2023-03-10] MEDS: PALONOSETRON 0.25 MG/5 ML inj IV (12:16)
[2023-03-10] MEDS: dexAMETHasone 20 MG in 0.9 % SODIUM CHLORIDE 100 ml 100 ML 408 MG IVPB (12:17)
[2023-03-10] MEDS: SODIUM CHLORIDE 0.9 % (FLUSH) 10 ML SYRINGE IVF (12:23)
[2023-03-10] MEDS: 0.9 % SODIUM CHLORIDE 250 ml IV (12:23)
[2023-03-10] MEDS: HEPARIN 500 UNIT/5 ML SYRINGE IVF (13:58)
[2023-03-28 10:12] LABS: Basophils Absolute Auto 0.04 K/uL (0.00-0.30); Basophils Percent Auto 0.4 % (0.0-3.0); Hematocrit 38.4 % (33.0-51.0); Hemoglobin* 12.7 gm/dL (12.0-16.0); Immature Granulocytes Abs Auto 0.06 K/uL (0.00-0.30); Immature Granulocytes Pct Auto 0.6 %; Lymphocytes Percent Auto 9.9 % (20-44); Mean Corpuscular HGB Conc 33 gm/dL (32-36); Mean Corpuscular Hemoglobin 32 pg (26-34); Mean Corpuscular Volume 98 fL (80-100); Monocytes Percent Auto 9.8 % (0.0-11.0); Neutrophils Percent Auto 78.3 % (42.0-72.0); Platelet Count* 286 K/uL (140-440); RDW Coefficient of Variation % 16.2 % (11.5-15.5); Red Blood Count 3.92 m/uL (4.00-5.20); White Blood Count* 9.72 K/uL (4.50-11.00)
[2023-03-28 10:17] LABS: Slide Review Reflex No
[2023-03-28 10:24] LABS: Albumin* 5.3 g/dL (3.3-5.0); Chloride* 105 mmol/L (96-114)
[2023-03-28 10:25] LABS: Potassium* 3.7 mmol/L (3.6-5.1); Sodium* 139 mmol/L (135-149)
[2023-03-28 10:27] LABS: Anion Gap 11 mEq/L (7-15); Aspartate Amino Transferase* 21 U/L (12-35); Bilirubin Total* 0.4 mg/dL (0.1-1.5); Carbon Dioxide* 23 mmol/L (20-32); Creatinine* 0.8 mg/dL (0.5-1.5); Estimated Glomerular Filt Rate 85 ml/min; Total Protein* 8.1 g/dL (6.0-8.3)
[2023-03-28 10:28] LABS: Alanine Aminotransferase* 13 U/L (4-35); Alkaline Phosphatase* 77 U/L (40-150); Blood Urea Nitrogen* 15 mg/dL (7-30); Calcium* 9.6 mg/dL (8.4-10.6); Glucose* 97 mg/dL (60-115)
[2023-03-31] MEDS: 0.9 % SODIUM CHLORIDE 250 ml IV (09:09)
[2023-03-31] MEDS: SODIUM CHLORIDE 0.9 % (FLUSH) 10 ML SYRINGE IVF ×2 (09:09→10:30)
[2023-03-31] MEDS: PALONOSETRON 0.25 MG/5 ML inj IV (09:09)
[2023-03-31] MEDS: dexAMETHasone 20 MG in 0.9 % SODIUM CHLORIDE 100 ml 100 ML 420 MG IVPB (09:09)
[2023-03-31] MEDS: HEPARIN 500 UNIT/5 ML SYRINGE IVF (10:30)
[2023-04-18 10:53] LABS: Basophils Absolute Auto 0.04 K/uL (0.00-0.30); Basophils Percent Auto 0.4 % (0.0-3.0); Eosinophils Absolute Auto 0.05 K/uL (0.00-0.50); Eosinophils Percent Auto 0.5 % (0.0-7.0); Hematocrit 38.4 % (33.0-51.0); Hemoglobin* 12.7 gm/dL (12.0-16.0); Immature Granulocytes Abs Auto 0.07 K/uL (0.00-0.30); Immature Granulocytes Pct Auto 0.7 %; Lymphocytes Percent Auto 7.3 % (20-44); Mean Corpuscular HGB Conc 33 gm/dL (32-36); Mean Corpuscular Hemoglobin 33 pg (26-34); Mean Corpuscular Volume 99 fL (80-100); Monocytes Percent Auto 8.9 % (0.0-11.0); Neutrophils Percent Auto 82.2 % (42.0-72.0); Platelet Count* 245 K/uL (140-440); RDW Coefficient of Variation % 15.7 % (11.5-15.5); Red Blood Count 3.87 m/uL (4.00-5.20); White Blood Count* 10.64 K/uL (4.50-11.00)
[2023-04-18 11:04] LABS: Slide Review Reflex No
[2023-04-18 11:19] LABS: Albumin* 4.9 g/dL (3.3-5.0); Chloride* 104 mmol/L (96-114); Potassium* 3.4 mmol/L (3.6-5.1); Sodium* 137 mmol/L (135-149)
[2023-04-18 11:21] LABS: Anion Gap 11 mEq/L (7-15); Bilirubin Total* 0.3 mg/dL (0.1-1.5); Carbon Dioxide* 22 mmol/L (20-32); Creatinine* 0.6 mg/dL (0.5-1.5); Estimated Glomerular Filt Rate 103 ml/min
[2023-04-18 11:22] LABS: Alanine Aminotransferase* 13 U/L (4-35); Alkaline Phosphatase* 81 U/L (40-150); Aspartate Amino Transferase* 18 U/L (12-35); Blood Urea Nitrogen* 19 mg/dL (7-30); Calcium* 9.5 mg/dL (8.4-10.6); Glucose* 101 mg/dL (60-115); Total Protein* 7.8 g/dL (6.0-8.3)
[2023-04-21] MEDS: 0.9 % SODIUM CHLORIDE 250 ml IV (09:36)
[2023-04-21] MEDS: SODIUM CHLORIDE 0.9 % (FLUSH) 10 ML SYRINGE IVF ×2 (09:37→11:24)
[2023-04-21] MEDS: dexAMETHasone 20 MG in 0.9 % SODIUM CHLORIDE 100 ml 100 ML 420 MG IVPB (09:52)
[2023-04-21] MEDS: PALONOSETRON 0.25 MG/5 ML inj IV (09:53)
[2023-04-21] MEDS: HEPARIN 500 UNIT/5 ML SYRINGE IVF (11:24)
--- NOTE | 2023-04-29 08:16 | ONC.NURNOTE ---
Patient called in stating she had some seizure activity on Friday with her legs shaking and now its gong to her arm -- like when she first was diagnosed with cancer and they found it in her brain. Has brain MRI scheduled for May and hasn't had one since December. Rescheduled her neurology appointment for June due to a vacation. Patient told if she believes she is having seizure activity she should go to ED to be evaluated to prevent further seizure activity.
[2023-05-09 11:13] LABS: Hematocrit 37.7 % (33.0-51.0); Hemoglobin* 12.5 gm/dL (12.0-16.0); Immature Granulocytes Pct Auto 1.2 %; Lymphocytes Percent Auto 3.7 % (20-44); Mean Corpuscular HGB Conc 33 gm/dL (32-36); Mean Corpuscular Hemoglobin 34 pg (26-34); Mean Corpuscular Volume 101 fL (80-100); Monocytes Percent Auto 4.3 % (0.0-11.0); Neutrophils Percent Auto 90.8 % (42.0-72.0); Platelet Count* 251 K/uL (140-440); RDW Coefficient of Variation % 14.5 % (11.5-15.5); Red Blood Count 3.72 m/uL (4.00-5.20); White Blood Count* 11.21 K/uL (4.50-11.00)
[2023-05-09 11:21] LABS: Slide Review Reflex No
[2023-05-09 11:36] LABS: Albumin* 4.7 g/dL (3.3-5.0); Chloride* 104 mmol/L (96-114); Potassium* 3.8 mmol/L (3.6-5.1); Sodium* 137 mmol/L (135-149)
[2023-05-09 11:39] LABS: Alkaline Phosphatase* 70 U/L (40-150); Anion Gap 10 mEq/L (7-15); Aspartate Amino Transferase* 17 U/L (12-35); Bilirubin Total* 0.3 mg/dL (0.1-1.5); Blood Urea Nitrogen* 30 mg/dL (7-30); Carbon Dioxide* 23 mmol/L (20-32); Creatinine* 0.6 mg/dL (0.5-1.5); Estimated Glomerular Filt Rate 103 ml/min; Glucose* 121 mg/dL (60-115); Total Protein* 7.3 g/dL (6.0-8.3)
[2023-05-09 11:40] LABS: Alanine Aminotransferase* 16 U/L (4-35); Calcium* 9.3 mg/dL (8.4-10.6)
[2023-05-12 08:18] VITALS: BP 136/50; PULSE 60; RESP 18; TEMP 36.9; O2SAT 98
[2023-05-12] MEDS: PALONOSETRON 0.25 MG/5 ML inj IV (08:35)
[2023-05-12] MEDS: dexAMETHasone 20 MG in 0.9 % SODIUM CHLORIDE 100 ml 100 ML 408 MG IVPB (08:49)
[2023-05-30 11:18] LABS: Hematocrit 39.1 % (33.0-51.0); Hemoglobin* 13.1 gm/dL (12.0-16.0); Immature Granulocytes Abs Auto 0.23 K/uL (0.00-0.30); Immature Granulocytes Pct Auto 2.1 %; Lymphocytes Percent Auto 2.1 % (20-44); Mean Corpuscular HGB Conc 34 gm/dL (32-36); Mean Corpuscular Hemoglobin 34 pg (26-34); Mean Corpuscular Volume 100 fL (80-100); Monocytes Percent Auto 4.2 % (0.0-11.0); Neutrophils Percent Auto 91.6 % (42.0-72.0); Platelet Count* 158 K/uL (140-440); RDW Coefficient of Variation % 14.8 % (11.5-15.5); White Blood Count* 10.99 K/uL (4.50-11.00)
[2023-05-30 11:21] LABS: Slide Review Reflex No
[2023-05-30 11:28] LABS: Albumin* 4.3 g/dL (3.3-5.0); Chloride* 104 mmol/L (96-114); Sodium* 133 mmol/L (135-149)
[2023-05-30 11:29] LABS: Potassium* 3.4 mmol/L (3.6-5.1)
[2023-05-30 11:31] LABS: Alanine Aminotransferase* 33 U/L (4-35); Alkaline Phosphatase* 98 U/L (40-150); Anion Gap 4 mEq/L (7-15); Aspartate Amino Transferase* 21 U/L (12-35); Bilirubin Total* 0.5 mg/dL (0.1-1.5); Blood Urea Nitrogen* 28 mg/dL (7-30); Carbon Dioxide* 25 mmol/L (20-32); Creatinine* 0.7 mg/dL (0.5-1.5); Estimated Glomerular Filt Rate 100 ml/min; Glucose* 141 mg/dL (60-115); Total Protein* 6.6 g/dL (6.0-8.3)
[2023-05-30 11:32] LABS: Calcium* 8.3 mg/dL (8.4-10.6)
--- NOTE | 2023-05-30 12:33 | PC.NURSE ---
Pt present at [facility] today for labs prior to treatment on Friday. RN noted results. Called and LM on pt's primary line encouraging her to take her Potassium as ordered and also add a little salt to her diet as her potassium and sodium were low, respectively. Invited a call back with questions otherwise pt will be back on Friday.
[2023-06-02] MEDS: 0.9 % SODIUM CHLORIDE 250 ml IV (11:18)
[2023-06-02] MEDS: SODIUM CHLORIDE 0.9 % (FLUSH) 10 ML SYRINGE IVF ×2 (11:18→13:05)
[2023-06-02] MEDS: dexAMETHasone 20 MG in 0.9 % SODIUM CHLORIDE 100 ml 100 ML 420 MG IVPB (11:25)
[2023-06-02] MEDS: PALONOSETRON 0.25 MG/5 ML inj IV (11:26)
[2023-06-02] MEDS: HEPARIN 500 UNIT/5 ML SYRINGE IVF (13:05)
[2023-06-20 13:14] LABS: Basophils Absolute Auto 0.03 K/uL (0.00-0.30); Basophils Percent Auto 0.3 % (0.0-3.0); Hematocrit 37.5 % (33.0-51.0); Hemoglobin* 12.7 gm/dL (12.0-16.0); Immature Granulocytes Abs Auto 0.42 K/uL (0.00-0.30); Immature Granulocytes Pct Auto 3.9 %; Lymphocytes Percent Auto 5.6 % (20-44); Mean Corpuscular HGB Conc 34 gm/dL (32-36); Mean Corpuscular Hemoglobin 34 pg (26-34); Mean Corpuscular Volume 101 fL (80-100); Monocytes Percent Auto 5.2 % (0.0-11.0); Platelet Count* 93 K/uL (140-440); RDW Coefficient of Variation % 15.6 % (11.5-15.5); Red Blood Count 3.72 m/uL (4.00-5.20); White Blood Count* 10.64 K/uL (4.50-11.00)
[2023-06-20 13:33] LABS: Albumin* 4.5 g/dL (3.3-5.0); Chloride* 98 mmol/L (96-114)
[2023-06-20 13:34] LABS: Potassium* 4.3 mmol/L (3.6-5.1); Slide Review Reflex Yes; Sodium* 134 mmol/L (135-149)
[2023-06-20 13:36] LABS: Alkaline Phosphatase* 77 U/L (40-150); Anion Gap 5 mEq/L (7-15); Aspartate Amino Transferase* 31 U/L (12-35); Bilirubin Total* 0.5 mg/dL (0.1-1.5); Blood Urea Nitrogen* 13 mg/dL (7-30); Carbon Dioxide* 31 mmol/L (20-32); Creatinine* 0.7 mg/dL (0.5-1.5); Est. Creatinine Clearance* 84.15; Estimated Glomerular Filt Rate 100 ml/min
[2023-06-20 13:37] LABS: Alanine Aminotransferase* 50 U/L (4-35); Calcium* 8.9 mg/dL (8.4-10.6); Glucose* 123 mg/dL (60-115)
[2023-06-20 13:48] LABS: Slide Review Acceptable Review (Acceptable)
== END 2023-06-21 23:59 | disposition home or self-care (01) ==
LOC: CCIC 14:00
PROVIDERS: Clinical Nurse Specialist; PCP Family Medicine; Referring Provider Family Medicine; Visit Provider Internal Medicine Hematology & Oncology
DX: C34.91 Malignant neoplasm of unspecified part of right bronchus or lung (principal); E05.00 Thyrotoxicosis with diffuse goiter without thyrotoxic crisis or storm
CPT/HCPCS: 36415; 36591; 80053; 82533; 84439; 84443; 84481; 85025; 96376; 96377; 96413; 99212; 99213; 99215; G0463; J2506; J1100; J1642; J2469; J7050; J9022; J9223

== ENCOUNTER 2023-06-24 08:03 | Outpatient (CLI) | payer BC, SELFPAY ==
--- OUTSIDE RECORDS SUMMARY | 2023-06-24 08:07 | XMS_ITS | Continuity of Care Document ---
Author Name Unknown Organization [facility] enter Address [address] [place] [address] Phone Care Team Providers Care Cable Engineer Name Role Phone [facility] Unavailable Unava ilable Procedures Procedure Date INJECT SACROILIAC JOINT INJECT SACROILIAC JOINT INJECT SACROILIAC JOINT Inj for sacroiliac jt anesth Inj for sacroiliac jt anesth INJ FORAMEN EPIDURAL L/S INJ FORAMEN EPIDURAL L/S Advance Directives Directive Yes / No Effective Date File Name No Information Encounters Encounter Description Practice Location Reason(s) For Visit Diagnoses Date Provider Providers Copied on Encounter [facility], [address] [place] [address], [id number], tel:[phone] [place] [address] No Information 3 [facility]. [address] [place] [address], [id number], [place]. tel:[phone] Referring Provider: Renetta Bush, [address] [facility] [place], [address] . tel:[phone] [facility], [address] [place] [address], [id number], tel:[phone] [place] [address] No Information 3 [facility]. [address] [place] [address], [id number], . tel:[phone] Referring Provider: Miles Rey, [address] [place], [address] . tel:[phone] [facility], [address] [place] [address], [id number], tel:[phone] [facility] No Information 3 2 [facility]. [address] [place] [address], [id number], . tel:[phone] Referring Provider: Liam Blakely [address] [facility] [place] [address], [place], [address]. tel:[phone] [facility], [address] [place] [address], [id number], tel:[phone] [place] [address] No Information 2 [facility]. [address] [place] [address], [id number], . tel:[phone] Referring Provider: Renetta Bush, [address] [place], [address] . tel:[phone] [facility], [address] [place] [address], [id number], tel:[phone] [place] [address] No Information 0 [facility]. [address] [place] [address], [id number], . tel:[phone] Referring Provider: Liam Blakely [address] [facility] [place] [address], [place], [address]. tel:[phone] Family History Family Member Type Diagnosis Age At Onset No Information Payers Payer name Insurance type Covered republican ID Christian fragoso(s) Ariel Cross Ariel Garnica BL [id number] Social History Type Description Quantity Date [...]
--- OUTSIDE RECORDS SUMMARY | 2023-06-24 08:07 | XMS_ITS | Continuity of Care Document ---
Author Name Unknown Organization [facility] Address [address] [place] [address] Phone Care Team Providers Care Property Utilization Officer Name Role Phone Murphy Chi Unavailable Unavailable Allergies, Adverse Reactions, Alerts Substance Reaction Status Criticality No Known Allergies Active No Inform ation Medications Medication Instructions Dosage Effective Dates (start - stop) Status Comments oxycodone 10 mg tablet take 1 tablet by oral route every 6 hours as needed for chronic pain; max 4/day - Active levothyroxine 100 mcg capsule take 1 capsule by oral route every day 100 MCG - Active atorvastatin 20 mg tablet take 1 tablet by oral route every day 20 MG - Active amlodipine 5 mg tablet take 1 tablet by oral route every day 5 MG - Active ibuprofen 200 mg tablet Take 200 mg by mouth 4 (four) times a day as needed. - Active buspirone 10 mg tablet take 1 tablet by oral route 3 times every day 10 MG - Active dexamethasone 2 mg tablet take 1 tablet by oral route 2 times every day 2 MG - Active Calcium-500 500 mg (as calcium carbonate 1,250 mg) chewable tablet - Active escitalopram 10 mg tablet take 1 tablet by oral route every day 10 MG - Active prochlorperazine maleate 10 mg tablet take 1 tablet by oral route 3 days after chemo - Active LEVETIRACETAM (unknown strength) take 1 tablet by oral route 2 times every day Not Available - Active Tylenol Extra Strength 500 mg tablet take 2 tablet by oral route every 4 - 6 hours as needed not to exceed 8 tablets per 24hrs 1000 MG - Active atorvastatin 20 mg tablet take 1 tablet by oral route every day 20 MG - No Longer Active Procedures Procedure Date OFFICE/OUTPATIENT VISIT, EST [...] q3mo opiod tx OFFICE VISIT, EST TELEMEDICINE Feb-25-20 22 Foll-up eval q3mo opiod tx OFFICE VISIT, EST TELEMEDICINE Foll-up eval q3mo opiod tx OFFICE VISIT, EST TELEMEDICINE Injection Sacroiliac Left Foll-up eval q3mo opiod tx OFFICE VISIT, EST TELEMEDICINE Foll-up eval q3mo opiod tx OFFICE VISIT, EST TELEMEDICINE Foll-up eval q3mo opiod tx OFFICE VISIT, EST TELEMEDICINE INJ TRIGGER POINT, 02/18 MUSCL Kenalog Triamcinolone acetonide inj Foll-up eval [...] q3mo opiod tx OFFICE VISIT, EST TELEMEDICINE Dec-11-20 20 INJ FORAMEN EPIDURAL L/S BILATERAL OFFICE [...] opiod tx OFFICE VISIT, EST TELEMEDICINE 20 Drug Urine Toxology With Chromatography PT-FOCUSED HLTH RISK ASSOR OFFICE/OUTPATIENT VISIT, NEW Results Test Name Date and Time Measure Units Reference Range Abnormal Flag Status Comments Panel Description: URINE DRUG SCREEN Preliminar y Image UDT 1 AMPHETAMINE 09:30:00 -100 (Negativ e) ng/mL 0 Preliminary Performed by:[facility] (1) BARBITURATES 09:30:00 -99 (Negativ e) ng/mL 0 Preliminary Performed by:[facility] (1) COCAINE 09:30:00 -99 (Negativ e) ng/mL 0 Preliminary Performed by:[facility] (1) METHADONE 09:30:00 -100 (Negativ e) ng/mL 0 Preliminary Performed by:[facility] (1) OPIATES 09:30:00 -61 (Negativ e) ng/mL 0 Preliminary Performed by:[facility] (1) BENZODIAZEPINES 09:30:00 -107 (Negativ e) ng/mL 0 Preliminary Performed by:[facility] (1) PHENCYCLIDINE - PCP 09:30:00 -99.00 (Negativ e) ng/mL 0.00 Preliminary Performed by:[facility] (1) CANNABINOIDS - THC - MARIJUANA 09:30:00 -102 (Negativ e) ng/mL 0 Preliminary Performed by:[facility] (1) ECSTASY - MDMA 09:30:00 -91 (Negativ e) ng/mL 0 Preliminary Performed by:[facility] (1) OXYCODONE 09:30:00 118 (Positiv e) ng/mL 0 A Preliminary Performed by:[facility] (1) ETHYL ALCOHOL 09:30:00 1 (Negativ e) mg/dL 100 Preliminary Performed by:[facility] (1) URINE SPECIFIC GRAVITY 09:30:00 1.003 (Accepta ble) 1.003 - 1.035 Preliminary Performed by:[facility] (1) URINE PH 09:30:00 7.4 (Accepta ble) 4.4 - 9.0 Preliminary Performed by:[facility] (1) URINE CREATININE 09:30:00 12 (Unaccep table) mg/dL 20 - 400 Preliminary Performed by:[facility] (1) Panel Description: BENZODIAZEPINES Final Alprazolam 09:29:00 < 20 (CONSIST ENT) ng/mL 20.0 Final Performed by:[facility] (1) 3-Fmiqu-Qtflnptytt 09:29:00 < 40 (CONSIST ENT) ng/mL 40.0 Final Performed by:[facility] (1) Nordiazepam 09:29:00 < 20 (CONSIST ENT) ng/mL 20.0 Final Performed by:[facility] (1) Temazepam 09:29:00 < 20 (CONSIST ENT) ng/mL 20.0 Final Performed by:[facility] (1) Lorazepam 09:29:00 < 20 (CONSIST ENT) ng/ml 20.0 Final Performed by:[facility] (1) Panel Description: FENTANYL Final Fentanyl 09:29:00 < 10 (CONSIST ENT) ng/mL 10.0 Final Performed by:[facility] (1) Norfentanyl 09:29:00 < 20 (CONSIST ENT) ng/mL 20.0 Final Performed by:[facility] (1) Panel Description: LSD Final LSD 09:29:00 < 10 (CONSIST ENT) ng/ml 10.0 Final Performed by:[facility] (1) Panel Description: TRAMADOL Final O Desmethyl Cis Tramadol 09:29:00 < 50 (CONSIST ENT) ng/ml 50.0 Final Performed by:[facility] (1) Panel Description: SEDATIVE Final Zolpidem 09:29:00 < 20 (CONSIST ENT) ng/mL 20.0 Final Performed by:[facility] (1) Panel Description: TAPENTADOL Final Tapentadol 09:29:00 < 40 (CONSIST ENT) ng/mL 40.0 Final Performed by:[facility] (1) Panel Description: Pregabalin Final Pregabalin 09:29:00 < 50 (CONSIST ENT) ng/mL 50.0 Final Performed by:[facility] (1) Panel Description: URINE DRUG SCREEN Final Image UDT 2 AMPHETAMINE 09:29:00 -100 (Negativ e) ng/mL 0 Final Performed by:[facility] (1) BARBITURATES 09:29:00 -99 (Negativ e) ng/mL 0 Final Performed by:[facility] (1) COCAINE 09:29:00 -99 (Negativ e) ng/mL 0 Final Performed by:[facility] (1) METHADONE 09:29:00 -100 (Negativ e) ng/mL 0 Final Performed by:[facility] (1) OPIATES 09:29:00 -61 (Negativ e) ng/mL 0 Final Performed by:[facility] (1) BENZODIAZEPINES 09:29:00 -107 (Negativ e) ng/mL 0 Final Performed by:[facility] (1) PHENCYCLIDINE - PCP 09:29:00 -99.00 (Negativ e) ng/mL 0.00 Final Performed by:[facility] (1) CANNABINOIDS - THC - MARIJUANA 09:29:00 -102 (Negativ e) ng/mL 0 Final Performed by:[facility] (1) ECSTASY - MDMA 09:29:00 -91 (Negativ e) ng/mL 0 Final Performed by:[facility] (1) OXYCODONE 09:29:00 118 (Positiv e) ng/mL 0 A Final Performed by:[facility] (1) ETHYL ALCOHOL 09:29:00 1 (Negativ e) mg/dL 100 Final Performed by:[facility] (1) URINE SPECIFIC GRAVITY 09:29:00 1.003 (Accepta ble) 1.003 - 1.035 Final Performed by:[facility] (1) URINE PH 09:29:00 7.4 (Accepta ble) 4.4 - 9.0 Final Performed by:[facility] (1) URINE CREATININE 09:29:00 12 (Unaccep table) mg/dL 20 - 400 Final Performed by:[facility] (1) Panel Description: STIMULANTS Final Amphetamine 09:29:00 < 50 (CONSIST ENT) ng/mL 50.0 Final Performed by:[facility] (1) Methamphetamine 09:29:00 < 50 (CONSIST ENT) ng/mL 50.0 Final Performed by:[facility] (1) Methylphenidate 09:29:00 < 40 (CONSIST ENT) ng/mL 40.0 Final Performed by:[facility] (1) Panel Description: EYEWEAR MANUFACTURING TECH AMPHETAMINES Final MDMA 09:29:00 < 50 (CONSIST ENT) ng/mL 50.0 Final Performed by:[facility] (1) Panel Description: OPIOIDS Final Buprenorphine 09:29:00 < 10 (CONSIST ENT) ng/mL 10.0 Final Performed by:[facility] (1) Norbuprenorphine 09:29:00 < 40 (CONSIST ENT) ng/mL 40.0 Final Performed by:[facility] (1) Naloxone 09:29:00 < 20 (CONSIST ENT) ng/mL 20.0 Final Performed by:[facility] (1) Propoxyphene 09:29:00 < 20 (CONSIST ENT) ng/mL 20.0 Final Performed by:[facility] (1) EDDP 09:29:00 < 20 (CONSIST ENT) ng/mL 20.0 Final Performed by:[facility] (1) Panel Description: MUSCLE RELAXANTS/SEDATIVE Fi nal Carisoprodol 09:29:00 < 50 (CONSIST ENT) ng/mL 50.0 Final Performed by:[facility] (1) Meprobamate 09:29:00 < 50 (CONSIST ENT) ng/mL 50.0 Final Performed by:[facility] (1) Zolpidem 09:29:00 < 20 (CONSIST ENT) ng/mL 20.0 Final Performed by:[facility] (1) Panel Description: OPIATES Final Codeine 09:29:00 < 50 (CONSIST ENT) ng/mL 50.0 Final Performed by:[facility] (1) Morphine 09:29:00 < 20 (CONSIST ENT) ng/mL 20.0 Final Performed by:[facility] (1) Hydrocodone 09:29:00 < 20 (CONSIST ENT) ng/mL 20.0 Final Performed by:[facility] (1) Hydromorphone 09:29:00 < 20 (CONSIST ENT) ng/mL 20.0 Final Performed by:[facility] (1) Oxycodone 09:29:00 696.8 (CONSIST ENT) ng/mL 50.0 Final Performed by:[facility] (1) Oxymorphone 09:29:00 407.1 (CONSIST ENT) ng/mL 20.0 Final Performed by:[facility] (1) Thebaine 09:29:00 < 10 (CONSIST ENT) ng/mL 10.0 Final Performed by:[facility] (1) Panel Description: ILLICIT Final Norfentanyl 09:29:00 < 20 (CONSIST ENT) ng/mL 20.0 Final Performed by:[facility] (1) 6-Acetyl Morphine 09:29:00 < 20 (CONSIST ENT) ng/mL 20.0 Final Performed by:[facility] (1) Phencyclidine 09:29:00 < 20 (CONSIST ENT) ng/mL 20.0 Final Performed by:[facility] (1) Ketamine 09:29:00 < 40 (CONSIST ENT) ng/mL 40.0 Final Performed by:[facility] (1) Benzoylecgonine(Co c Met) 09:29:00 < 10 (CONSIST ENT) ng/ml 20.0 Final Performed by:[facility] (1) Panel Description: Nortriptyline Final Nortriptyline 09:29:00 < 50 (CONSIST ENT) ng/mL 50.0 Final Performed by:[facility] (1) Panel Description: Amtriptyline Final Amtriptyline 09:29:00 < 50 (CONSIST ENT) ng/mL 50.0 Final Performed by:[facility] (1) Advance Directives Directive Yes / No Effective Date File Name No Information Encounters Encounter Description Practice Location Reason(s) For Visit Diagnoses Date Provider Providers Copied on Encounter OFFICE/OUTPAT IENT VISIT, EST [facility], [address], [place], [id number] , [place] tel:[phone] [facility] [place] low back pain (chief complaint) Malignant neoplasm of pleuraChronic pain syndromeSacroilii tisSpinal stenosis, lumbar regionRadiculopat hy, lumbar regionMyalgia, other siteLong term (current) use of opiate analgesicEncounte r for therapeutic drug level monitoring May- 4 Kelsey Arrington. [address] [place] [address] [address], [place], [place], [id number] , [place]. tel:[phone] Referring Provider: Miles Jiménez, [address] [place] [address], [address]. [phone] OFFICE VISIT, [facility], [address] [place] [address], [id number] , [place] tel: [phone] [facility] low back pain (chief complaint) Malignant neoplasm of pleuraChronic pain syndromeSacroilii tisSpinal stenosis, lumbar regionRadiculopat hy, lumbar regionMyalgia, other siteLong term (current) use of opiate analgesic Apr-2 4 Kelsey Arrington. [address] [place] [address] [address], [place], [place], [id number] , [place]. tel: [phone] OFFICE VISIT, EST [facility], [address] [place] [address], [id number] , [place] tel: [phone] [facility] low back pain (chief complaint) Malignant neoplasm of pleuraChronic pain syndromeSacroilii tisSpinal stenosis, lumbar regionRadiculopat hy, lumbar regionMyalgia, other siteLong term (current) use of opiate analgesic Apr-0 4 Kelsey Arrington. [address] [place] [address] [address], [place], [place], [id number] , [place]. tel: [phone] OFFICE/OUTPAT IENT VISIT, [facility], [address] [place] [address], [id number] , [place] tel: [phone] [facility] Low back pain (chief complaint) Malignant neoplasm of pleuraChronic pain syndromeSacroilii tisSpinal stenosis, lumbar regionRadiculopat hy, lumbar regionMyalgia, other siteLong term (current) use of opiate analgesicEncounte r for therapeutic drug level monitoring 4 Kelsey Arrington. [address] [place] [address] [address], [place], [id number] , [place]. tel:[phone] Referring Provider: Miles Jiménez, [address] [place] [address], [address]. tel:[phone] OFFICE VISIT, EST [facility], [address] [place] [address], [id number] , [place] tel: [phone] [facility] Neck Pain (chief complaint) Malignant neoplasm of pleuraChronic pain syndromeSacroilii tisSpinal stenosis, lumbar regionRadiculopat hy, lumbar regionMyalgia, other siteLong term (current) use of opiate analgesic 4 Kelsey Arrington. [address] [place] [address] [address], [place], [id number] , [place]. tel: [phone] OFFICE VISIT, [facility], [address] [place] [address], [id number] , [place] tel: [phone] [facility] Neck Pain (chief complaint) Malignant neoplasm of pleuraChronic pain syndromeSacroilii tisSpinal stenosis, lumbar regionRadiculopat hy, lumbar regionMyalgia, other siteLong term (current) use of opiate analgesic 3 Kelsey Arrington. [address] [place] [address] [address], [place], [id number] , [place]. tel:[phone] [facility], [address] [place] [address], [id number] , [place] tel:[phone] [facility] Sacroiliitis, not elsewhere classified 3 Eleazar Jackson. [address] [place] [address], [id number] , [place]. tel:[phone] Referring Provider: Renetta Bush, [address] [place] [address], [address]. [phone] OFFICE/OUTPAT IENT VISIT, [facility], [address] [place] [address], [id number] , [place] [phone] [facility] Neck Pain (chief complaint) Malignant neoplasm of pleuraChronic pain syndromeSacroilii tisSpinal stenosis, lumbar regionRadiculopat hy, lumbar regionMyalgia, other siteLong term (current) use of opiate analgesicEncounte r for therapeutic drug level monitoring 3 Kelsey Arrington. [address] [place] [address] [address], [place], [place], [id number] , [place]. [phone] Referring Provider: Murphy Cole, [address] [place] [address] [address], [place], [address]. [phone] [facility], [address] [place] [address], [id number] , [place] tel:[phone] [facility] No Information 3 Kelsey Arrington. [address] [place] [address] [address], [place], [place], [id number] , [place]. [phone] Referring Provider: Murphy Cole, [address] [place] [address] [address], [place], [address]. tel:[phone] OFFICE VISIT, [facility], [address] [place] [address], [id number] , [place] [phone] [facility] Neck Pain (chief complaint) Malignant neoplasm of pleuraChronic pain syndromeSacroilii tisSpinal stenosis, lumbar regionRadiculopat hy, lumbar regionMyalgia, other siteLong term (current) use of opiate analgesic 3 Kelsey Arrington. [address] [place] [address] [address], [place], [place], [id number] , [place]. tel:[phone] Referring Provider: Miles Jiménez, [address] [place] [address], [address]. tel:[phone] OFFICE/OUTPAT IENT VISIT, [facility], [address] [place] [address], [id number] , [place] tel:[phone] [facility] Neck Pain (chief complaint) Malignant neoplasm of pleuraChronic pain syndromeSacroilii tisSpinal stenosis, lumbar regionRadiculopat hy, lumbar regionMyalgia, other siteLong term (current) use of opiate analgesicEncounte r for therapeutic drug level monitoring 3 Colekayla Arrington. [address] [facility] [address], [place], [place], [id number] , [place]. tel:[phone] Referring Provider: Miles Jiménez, [address] [place] [address], [address]. tel:[phone] [facility], [address] [place] [address], [id number] , [place] [phone] [facility] No Information 3 Cole Murphy. [address] [facility] [address], [place], [place], [id number] , [place]. tel:[phone] Referring Provider: Miles Jiménez, [address] [place] [address], [address]. tel:[phone] OFFICE VISIT, EST TELEMEDICINE [facility], [address] [place] [address], [id number] , [place] tel:[phone] [facility] Neck Pain (chief complaint) Malignant neoplasm of pleuraChronic pain syndromeSacroilii tisSpinal stenosis, lumbar regionRadiculopat hy, lumbar regionMyalgia, other siteLong term (current) use of opiate analgesic 3 Kelsey Arrington. [address] [place] [address] [address], [place], [place], [id number] , [place]. tel:[phone] Referring Provider: Miles Jiménez, [address] [place] [address], [address]. tel:[phone] OFFICE VISIT, EST TELEMEDICINE [facility], [address] [place] [address], [id number] , [place] tel:[phone] [facility] Neck Pain (chief complaint) Chronic pain syndromeSacroilii tisSpinal stenosis, lumbar regionRadiculopat hy, lumbar regionMyalgia, other siteLong term (current) use of opiate analgesicMalignan t neoplasm of pleura 3 Kelsey Arrington. [address] [place] [address] [address], [place], [place], [id number] , [place]. tel:[phone] Referring Provider: Miles Jiménez, [address] [place] [address], [address]. [phone] OFFICE/OUTPAT IENT VISIT, EST [facility], [address] [place] [address], [id number] , [place] tel:[phone] [facility] low back pain (chief complaint) Chronic pain syndromeSacroilii tisSpinal stenosis, lumbar regionRadiculopat hy, lumbar regionMyalgia, other siteLong term (current) use of opiate analgesicMalignan t neoplasm of pleuraEncounter for therapeutic drug level monitoring 3 Kelsey Arrington. [address] [place] [address] [address], [place], [place], [id number] , [place]. [phone] Referring Provider: Miles Jiménez, [address] [place] [address], [address]. tel:[phone] [facility], [address] [place] [address], [id number] , [place] tel:[phone] [facility] No Information 3 Kelsey Arrington. [address] [place] [address] [address], [place], [place], [id number] , [place]. tel:[phone] OFFICE VISIT, EST TELEMEDICINE [facility], [address] [place] [address], [id number] , [place] tel:[phone] [facility] low back pain (chief complaint) Chronic pain syndromeSacroilii tisSpinal stenosis, lumbar regionRadiculopat hy, lumbar regionMyalgia, other siteLong term (current) use of opiate analgesic Apr-2 3 Kelsey Arrington. [address], [place], [place], [id number] , [place]. tel:[phone] Referring Provider: Miles Jiménez, [address] [place] [address], [address]. [phone] OFFICE VISIT, EST TELEMEDICINE [facility], [address] [place] [address], [id number] , [place] tel:[phone] [facility] low back pain (chief complaint) Spinal stenosis, lumbar regionSacroiliiti sMyalgia, other siteRadiculopathy , lumbar regionLong term (current) use of opiate analgesicChronic pain syndrome Mar-2 3 Jenny Campos. [address] [place] [address], [id number] , [place]. tel:[phone] Referring Provider: Miles Jiménez, [address] [place] [address], [address]. [phone] OFFICE/OUTPAT IENT VISIT, [facility], [address] [place] [address], [id number] , [place] tel:[phone] [facility] low back pain (chief complaint) SacroiliitisSpina l stenosis, lumbar regionRadiculopat hy, lumbar regionMyalgia, other siteLong term (current) use of opiate analgesic Mar-0 - 3 Kelsey Arrington. [address] [place] [address] [address], [place], [place], [id number] , [place]. tel:[phone] Referring Provider: Miles Jiménez, [address] [place] [address], [address]. tel:[phone] [facility], [address] [place] [address], [id number] , [place] tel:[phone] [facility] No Information Apr-0 - 3 Kelsey Arrington. [address] [place] [address] [address], [place], [place], [id number] , [place]. tel:[phone] [facility], [address] [place] [address], [id number] , [place] tel: [phone] [facility] Sacroiliitis, not elsewhere classified 3 Krissy Aquino. [address] [place] [address], [id number] , [place]. tel:[phone] Referring Provider: Miles Jiménez, [address] [place] [address], [address]. tel:[phone] OFFICE VISIT, EST TELEMEDICINE [facility], [address] [place] [address], [id number] , [place] tel: [phone] [facility] low back pain (chief complaint) SacroiliitisSpina l stenosis, lumbar regionRadiculopat hy, lumbar regionMyalgia, other siteLong term (current) use of opiate analgesic 3 Kelsey Arrington. [address] [place] [address] [address], [place], [place], [id number] , [place]. tel: [phone] OFFICE VISIT, EST TELEMEDICINE [facility], [address] [place] [address], [id number] , [place] tel: [phone] [facility] low back pain (chief complaint) SacroiliitisSpina l stenosis, lumbar regionRadiculopat hy, lumbar regionMyalgia, other siteLong term (current) use of opiate analgesic 2 Kelsey Hayesel. [address] [place] [address] [address], [place], [place], [id number] , [place]. tel: [phone] [facility], [address] [place] [address], [id number] , [place] tel: [phone] [facility] No Information 2 Kelsey Arrington. [address] [place] [address] [address], [place], [place], [id number] , [place]. tel: [phone] Referring Provider: Miles Jiménez, [address] [place] [address], [address]. tel:[phone] OFFICE/OUTPAT IENT VISIT, [facility], [address] [place] [address], [id number] , [place] tel: [phone] [facility] [place] low back pain (chief complaint) SacroiliitisSpina l stenosis, lumbar regionRadiculopat hy, lumbar regionMyalgia, other siteLong term (current) use of opiate analgesicEncounte r for therapeutic drug level monitoring 2 Kelsey Arrington. [address] [place] [address] [address], [place], [place], [id number] , [place]. [phone] Referring Provider: Miles Jiménez, [address] [place] [address], [address]. tel:[phone] OFFICE VISIT, EST TELEMEDICINE [facility], [address] [place] [address], [id number] , [place] [phone] [facility] low back pain (chief complaint) SacroiliitisSpina l stenosis, lumbar regionRadiculopat hy, lumbar regionMyalgia, other siteLong term (current) use of opiate analgesic Nov- 2 Kelsey Arrington. [address] [place] [address] [address], [place], [place], [id number] , [place]. [phone] [facility], [address] [place] [address], [id number] , [place] [phone] [facility] Sacroiliitis, not elsewhere classified Sep-3 2 Blakely Liam. [facility], [address] [address], [place], [address], [place]. [phone] Referring Provider: Miles Jiménez, [address] [place] [address], [address]. tel:[phone] OFFICE VISIT, EST TELEMEDICINE [facility], [address] [place] [address], [id number] , [place] [phone] [facility] low back pain (chief complaint) SacroiliitisSpina l stenosis, lumbar regionRadiculopat hy, lumbar regionMyalgia, other siteLong term (current) use of opiate analgesic Sep-2 2 Cole Murphy. [address] [place] [address] [address], [place], [place], [id number] , [place]. tel:[phone] Referring Provider: Miles Jiménez, [address] [place] [address], [address]. tel:[phone] [facility], [address] [place] [address], [id number] , [place] tel: [phone] [facility] No Information 2 Kelsey Arrington. [address] [place] [address] [address], [place], [place], [id number] , [place]. tel:[phone] Referring Provider: Miles Jiménez, [address] [place] [address], [address]. tel:[phone] OFFICE/OUTPAT IENT VISIT, EST [facility], [address] [place] [address], [id number] , [place] tel: [phone] [facility] low back pain (chief complaint) SacroiliitisSpina l stenosis, lumbar regionRadiculopat hy, lumbar regionMyalgia, other siteLong term (current) use of opiate analgesic 2 Kelsey Arrington. [address] [place] [address] [address], [place], [place], [id number] , [place]. tel: [phone] Referring Provider: Miles Jiménez, [address] [place] [address], [address]. tel:[phone] OFFICE VISIT, EST TELEMEDICINE [facility], [address] [place] [address], [id number] , [place] tel: [phone] [facility] Back Pain (chief complaint) SacroiliitisSpina l stenosis, lumbar regionRadiculopat hy, lumbar regionMyalgia, other siteLong term (current) use of opiate analgesic 2 Colehina Arrington. [address] [place] [address] [address], [place], [id number] , [place]. tel: [phone] OFFICE VISIT, EST TELEMEDICINE [facility], [address] [place] [address], [id number] , [place] tel: [phone] [facility] Back Pain (chief complaint) SacroiliitisSpina l stenosis, lumbar regionRadiculopat hy, lumbar regionMyalgia, other siteLong term (current) use of opiate analgesic Aug- 2 Kelsey Arrington. [address] [facility] [address], [place], [place], [id number] , [place]. tel: [phone] [facility], [address] [place] [address], [id number] , [place] tel: [phone] [facility] Sacroiliitis, not elsewhere classified 2 Eleazar Jackson. [address] [place] [address], [id number] , [place]. tel: [phone] Referring Provider: Miles Jiménez, [address] [place] [address], [address]. tel:[phone] OFFICE VISIT, EST TELEMEDICINE [facility], [address] [place] [address], [id number] , [place] tel: [phone] [facility] Back Pain (chief complaint) SacroiliitisSpina l stenosis, lumbar regionRadiculopat hy, lumbar regionMyalgia, other siteLong term (current) use of opiate analgesic 2 Colehina Arrington. [address] [place] [address] [address], [place], [place], [id number] , [place]. tel: [phone] Referring Provider: Miles Jiménez, [address] [place] [address], [address]. tel:[phone] OFFICE VISIT, EST TELEMEDICINE [facility], [address] [place] [address], [id number] , [place] tel: [phone] [facility] Back Pain (chief complaint) SacroiliitisSpina l stenosis, lumbar regionRadiculopat hy, lumbar regionMyalgia, other siteLong term (current) use of opiate analgesic 2 Kelsey Arrington. [address] [facility] [address], [place] , [place], [id number] , [place]. tel: [phone] [facility], [address] [place] [address], [id number] , [place] tel: [phone] [facility] [place] No Information 2 Kelsey Arrington. [address] [place] [address] [address], [place], [id number] , [place]. tel: [phone] OFFICE/OUTPAT IENT VISIT, EST [facility], [address] [place] [address], [id number] , [place] tel: [phone] [facility] Back Pain (chief complaint) Myalgia, other siteSacroiliitisS lester stenosis, lumbar regionRadiculopat hy, lumbar regionLong term (current) use of opiate analgesicEncounte r for screening for other disorderEncounter for therapeutic drug level monitoring 2 Kelsey Arrington. [address] [place] [address] 100, [place], [id number] , [place]. tel: [phone] Referring Provider: Miles Jiménez, [address] [place] [address], [address]. [phone] OFFICE VISIT, EST TELEMEDICINE [facility], [address] [place] [address], [id number] , [place] tel: [phone] [facility] No Information 2 Kelsey Arrington. [address] [place] [address] [address], [place], [id number] , [place]. tel:[phone] Referring Provider: Miles Jiménez, [address] [place] [address], [address]. [phone] OFFICE VISIT, EST TELEMEDICINE [facility], [address] [place] [address], [id number] , [place] tel: [phone] [facility] Back Pain (chief complaint) Radiculopathy, lumbar regionSacroiliiti sSpinal stenosis, lumbar regionMyalgia, other siteLong term (current) use of opiate analgesic 2 Cole Murphy. [address] [place] [address] [address], [place], [place], [id number] , [place]. tel: [phone] OFFICE VISIT, EST TELEMEDICINE [facility], [address] [place] [address], [id number] , [place] tel: [phone] [facility] [place] Back Pain (chief complaint) Radiculopathy, lumbar regionSacroiliiti sSpinal stenosis, lumbar regionMyalgia, other siteLong term (current) use of opiate analgesic Dec-2 1 Kelsey Arrington. [address] [place] [address], [place], [place], [id number] , [place]. tel: [phone] [facility], [address] [place] [address], [id number] , [place] tel: [phone] [facility] Sacroiliitis Jan-0 1 Eleazar Jackson. [address] [place] [address], [id number] , [place]. tel: [phone] Referring Provider: Miles Jiménez, [address] [place] [address], [address]. tel:[phone] OFFICE VISIT, EST TELEMEDICINE [facility], [address] [place] [address], [id number] , [place] tel: [phone] [facility] Back Pain (chief complaint) Radiculopathy, lumbar regionSpinal stenosis, lumbar regionSacroiliiti sMyalgia, other siteLong term (current) use of opiate analgesic Jan-0 1 Kelsey Arrington. [address] [place] [address], [place], [place], [id number] , [place]. tel: [phone] Referring Provider: Miles Jiménez, [address] [place] [address], [address]. [phone] OFFICE VISIT, EST TELEMEDICINE [facility], [address] [place] [address], [id number] , [place] tel: [phone] [facility] [place] Back Pain (chief complaint) Radiculopathy, lumbar regionSpinal stenosis, lumbar regionSacroiliiti sMyalgia, other siteLong term (current) use of opiate analgesic Nov-0 1 Cole Murphy. [address] [facility] [address], [place], [place], [id number] , [place]. tel:[phone] OFFICE VISIT, EST TELEMEDICINE [facility], [address] [place] [address], [id number] , [place] tel:[phone] [facility] Back Pain (chief complaint) Myalgia, other siteSacroiliitisR adiculopathy, lumbar regionSpinal stenosis, lumbar regionLong term (current) use of opiate analgesic Oct-0 1 Cole Murphy. [facility] [facility] [address], [place], [place], [id number] , [place]. tel:[phone] Referring Provider: Miles Jiménez, [address] [place] [address], [address]. [phone] [facility], [address] [place] [address], [id number] , [place] tel:[phone] [facility] Myalgia, other site Sep-1 0- 1 Cole Murphy. [address] [place] [address] [address], [place], [place], [id number] , [place]. tel:[phone] Referring Provider: Miles Jiménez, [address] [place] [address], [address]. [phone] OFFICE VISIT, EST [facility], [address] [place] [address], [id number] , [place] tel:[phone] [facility] Back Pain (chief complaint) SacroiliitisRadic ulopathy, lumbar regionSpinal stenosis, lumbar regionLong term (current) use of opiate analgesicMyalgia, other site Sep-0 1 Cole Murphy. [address] [place] [address] [address], [place], [place], [id number] , [place]. tel:[phone] Referring Provider: Miles Jiménez, [address] [place] [address], [address]. tel:[phone] OFFICE VISIT, EST TELEMEDICINE [facility], [address] [place] [address], [id number] , [place] tel: [phone] [facility] Back Pain (chief complaint) SacroiliitisRadic ulopathy, lumbar regionSpinal stenosis, lumbar regionLong term (current) use of opiate analgesicMyalgia, other site 1 Colekayla Hayesel. [facility] [address], [place], [place], [id number] , [place]. tel: [phone] Referring Provider: Miles Jiménez, [address] [place] [address], [address]. tel:[phone] OFFICE VISIT, [facility], [address] [place] [address], [id number] , [place] tel:[phone] [facility] Back Pain (chief complaint) SacroiliitisRadic ulopathy, lumbar regionSpinal stenosis, lumbar regionLong term (current) use of opiate analgesicMyalgia, other site 1 Cole Murphy. [address] [place] [address] [address], [place], [place], [id number] , [place]. tel:[phone] Referring Provider: Miles Jiménez, [address] [place] [address], [address]. [phone] OFFICE VISIT, EST [facility], [address] [place] [address], [id number] , [place] tel:[phone] [facility] Back Pain (chief complaint) SacroiliitisRadic ulopathy, lumbar regionSpinal stenosis, lumbar regionLong term (current) use of opiate analgesicMyalgia, other site 1 Cole Murphy. [address] [place] [address] [address], [place], [place], [id number] , [place]. tel:[phone] Referring Provider: Miles Jiménez, [address] [place] [address], [address]. [phone] OFFICE VISIT, EST [facility], [address] [place] [address], [id number] , [place] tel: [phone] [facility] [place] Back Pain (chief complaint) SacroiliitisRadic ulopathy, lumbar regionSpinal stenosis, lumbar regionLong term (current) use of opiate analgesicMyalgia, other site June-0 1 Kelsey Arrington. [address] [facility] [address], [place], [place], [id number] , [place]. tel:[phone] Referring Provider: Miles Jiménez, [address] [place] [address], [address]. [phone] [facility], [address] [place] [address], [id number] , [place] tel:[phone] [facility] Sacroiliitis Apr-2 1 Eleazar Jackson. [address] [place] [address], [id number] , [place]. tel:[phone] Referring Provider: Miles Jiménez, [address] [place] [address], [address]. [phone] OFFICE VISIT, EST TELEMEDICINE [facility], [address] [place] [address], [id number] , [place] tel:[phone] [facility] Back Pain (chief complaint) Radiculopathy, lumbar regionSpinal stenosis, lumbar regionLong term (current) use of opiate analgesicMyalgia, other siteSacroiliitis May-0 1 Kelsey Arrington. [address] [place] [address] [address], [place], [place], [id number] , [place]. tel:[phone] Referring Provider: Miles Jiménez, [address] [place] [address], [address]. [phone] OFFICE VISIT, EST TELEMEDICINE [facility], [address] [place] [address], [id number] , [place] tel:[phone] [facility] Back Pain (chief complaint) Radiculopathy, lumbar regionSpinal stenosis, lumbar regionLong term (current) use of opiate analgesicMyalgia, other siteSacroiliitis Apr-0 1 Kelsey Arrington. [address] [place] [address] [address], [place], [place], [id number] , [place]. tel: [phone] Referring Provider: Miles Jiménez, [address] [place] [address], [address]. tel:[phone] OFFICE VISIT, EST TELEMEDICINE [facility], [address] [place] [address], [id number] , [place] tel: [phone] [facility] Back Pain (chief complaint) Radiculopathy, lumbar regionSpinal stenosis, lumbar regionLong term (current) use of opiate analgesicSacroili itisMyalgia, other site 1 Kelsey Arrington. [address] [place] [address] [address], [place], [place], [id number] , [place]. tel: [phone] Referring Provider: Miles Jiménez, [address] [place] [address], [address]. tel:[phone] [facility], [address] [place] [address], [id number] , [place] tel: [phone] [facility] No Information 1 Cole Murphy. [address] [place] [address] [address], [place], [place], [id number] , [place]. tel: [phone] OFFICE/OUTPAT IENT VISIT, [facility], [address] [place] [address], [id number] , [place] tel: [phone] [facility] Back Pain (chief complaint) Radiculopathy, lumbar regionSpinal stenosis, lumbar regionLong term (current) use of opiate analgesicSacroili itisMyalgia, other site 1 Kelsey Arrington. [address] [place] [address] [address], [place], [place], [id number] , [place]. tel: [phone] Referring Provider: Miles Jiménez, [address] [place] [address], [address]. tel:[phone] OFFICE VISIT, EST TELEMEDICINE [facility], [address] [place] [address], [id number] , [place] [phone] [facility] Back Pain (chief complaint) Radiculopathy, lumbar regionSpinal stenosis, lumbar regionLong term (current) use of opiate analgesicSacroili itisMyalgia, other site 0 Kelsey Arrington. [address] [place] [address] [address], [place], [place], [id number] , [place]. tel:[phone] Referring Provider: Miles Jiménez, [address] [place] [address], [address]. [phone] [facility], [address] [place] [address], [id number] , [place] [phone] [facility] Radiculopathy, lumbar region 0 Reddy Wheeler. [facility], [address] [facility] [address], [place], [address], [place]. [phone] Referring Provider: Miles Jiménez, [address] [place] [address], [address]. tel:[phone] OFFICE VISIT, EST TELEMEDICINE [facility], [address] [place] [address], [id number] , [place] [phone] [facility] Back Pain (chief complaint) Radiculopathy, lumbar regionSpinal stenosis, lumbar regionLong term (current) use of opiate analgesicSacroili itisMyalgia, other site 0 Colehina Arrington. [address] [place] [address] [address], [place], [place], [id number] , [place]. [phone] Referring Provider: Miles Jiménez, [address] [place] [address], [address]. tel:[phone] OFFICE VISIT, EST TELEMEDICINE [facility], [address] [place] [address], [id number] , [place] [phone] [facility] Back Pain (chief complaint) Radiculopathy, lumbar regionSpinal stenosis, lumbar regionLong term (current) use of opiate analgesicSacroili itisMyalgia, other site 0 Cole Murphy. [address] [place] [address] [address], [place], [place], [id number] , [place]. [phone] Referring Provider: Miles Jiménez, [address] [place] [address], [address]. tel:[phone] OFFICE VISIT, [facility] TELEMEDICINE [facility], [address] [place] [address], [id number] , [place] tel:[phone] [facility] Back Pain (chief complaint) Radiculopathy, lumbar regionSpinal stenosis, lumbar regionLong term (current) use of opiate analgesicSacroili itisMyalgia, other site 0 Cole Murphy. [address] [place] [address] [address], [place], [place], [id number] , [place]. [phone] Referring Provider: Miles Jiménez, [address] [place] [address], [address]. [phone] OFFICE/OUTPAT IENT VISIT, [facility], [address] [place] [address], [id number] , [place] tel:[phone] [facility] Back Pain (chief complaint) Radiculopathy, lumbar regionSpinal stenosis, lumbar regionLong term (current) use of opiate analgesicSacroili itisMyalgia, other site 0 Cole Murphy. [address] [place] [address] [address], [place], [place], [id number] , [place]. tel:[phone] Referring Provider: Miles Jiménez, [address] [place] [address], [address]. [phone] [facility], [address] [place] [address], [id number] , [place] [phone] [facility] [place] Radiculopathy, lumbar region Aug- 0 Nava Campos. [address] [place] [address], [id number] , [place]. tel:[phone] Referring Provider: Miles Jiménez, [address] [place] [address], [address]. tel:[phone] OFFICE VISIT, EST TELEMEDICINE [facility], [address] [place] [address], [id number] , [phone] [facility] [place] Back Pain (chief complaint) Radiculopathy, lumbar regionSpinal stenosis, lumbar regionLong term (current) use of opiate analgesicSacroili itis 0 Kelsey Arrington. [address] [place] [address], [id number] , [place]. [phone] Referring Provider: Miles Jiménez, [address] [place] [address], [address]. tel:[phone] [facility], [address] [place] [address], [id number] , [place] [phone] [facility] Radiculopathy, lumbar region 0 Kelsey Arrington. [address] [place] [address], [id number] , [place]. [phone] OFFICE VISIT, EST TELEMEDICINE [facility], [address] [place] [address], [id number] , [place] [phone] [facility] [place] Back Pain (chief complaint) Radiculopathy, lumbar regionSpinal stenosis, lumbar regionLong term (current) use of opiate analgesicSacroili itis 0 Cole Murphy. [address] [place] [address], [id number] , [place]. [phone] Referring Provider: Miles Jiménez, [address] [place] [address], [address]. tel:[phone] OFFICE VISIT, EST TELEMEDICINE [facility], [address] [place] [address], [id number] , [place] [phone] [facility] Back Pain (chief complaint) Low back painChronic pain syndromeRadiculop athy, lumbar regionSpinal stenosis, lumbar regionLong term (current) use of opiate analgesic 0 Colehina Arrington. [facility] [address], [place], [place], [id number] , [place]. tel:[phone] [facility], [address] [place] [address], [id number] , [place] tel:[phone] [facility] Low back pain 0 Will Miles. [address] [place] [address], [id number] , [place]. tel:[phone] Referring Provider: Miles Jiménez, [address] [place] [address], [address]. [phone] OFFICE VISIT, EST TELEMEDICINE [facility], [address] [place] [address], [id number] , [place] tel:[phone] [facility] Back Pain (chief complaint) Chronic pain syndromeRadiculop athy, lumbar regionSpinal stenosis, lumbar regionLong term (current) use of opiate analgesic May- 0 Cole Murphy. [address] [place] [address] [address], [place], [id number] , [place]. tel:[phone] Referring Provider: Miles Jiménez, [address] [place] [address], [address]. [phone] OFFICE VISIT, EST TELEMEDICINE [facility], [address] [place] [address], [id number] , [place] tel:[phone] [facility] Back Pain (chief complaint) Chronic pain syndromeRadiculop athy, lumbar regionSpinal stenosis, lumbar regionLong term (current) use of opiate analgesicLow back pain 0 Colehina Arrington. [address] [place] [address] [address], [place], [place], [id number] , [place]. [phone] Referring Provider: Miles Jiménez, [address] [place] [address], [address]. [phone] OFFICE/OUTPAT IENT VISIT, [facility], [address] [place] [address], [id number] , [place] tel:[phone] [facility] [place] Back Pain (chief complaint) Chronic pain syndromeOther intervertebral disc degeneration, lumbar regionRadiculopat hy, lumbar regionSpinal stenosis, lumbar regionEncounter for therapeutic drug level monitoringLong term (current) use of opiate analgesic Apr-0 0 Kelsey Arrington. [address] [facility] [address], [place], [place], [id number] , [place]. tel:[phone] Referring Provider: Abdifatah Henry, [facility] [address], [place], [address]. tel:[phone] Family History Family Member Type Diagnosis Age At Onset No Information Payers Payer name Insurance type Covered alliance party ID Authoriza ticarlton(s) [employer] Ariel Granica BL [id number] Social History Type Description Quantity Date Captured Comments Alcohol Use Details Unknown Caffeine Use Details Unknown Tobacco Use Status Smoking Status No Information Sex Female Chief Complaint And Reason For Visit From encounter dated '06/12/2023 08:00'. low back pain (chief complaint). Description: Severity level is 5. Duration: chronic. The problem is fluctuating. It occurs persistently. The client describes the pain as an ache and sharp. Symptoms are aggravated by ascending stairs, descending stairs, lifting, housework and prolonged positioning.Symptoms are relieved by pain meds/drugs, stretching, walking and changing positions. Reason For Referral Reason For Referral No Information Plan Of Treatment Date Type Action Status Goal Height. Due on d ue Goal UDT. Due on due Goal OARS. Due on due Goal CT-Colonography. Due on due Goal PHQ-9. Due on du e Goal Review Allergy List. Due on due Goal Creatinine. Due on 24 due Goal Order Annual PT. Due on due Goal IRON POURER Paperwork. Due on due Goal Tobacco Use. Due on due Goal HPV. Due on due Goal FIT-DNA. Due on due Goal ALT (SGPT). Due on due Goal PERSONAL CHEF Scanned. Due on due Goal AST (SGOT). [...] due Goal Creatinine. Due on due Goal PERSONAL CHEF Scanned. Due on due Goal Order Annual PT. Due on due Goal UDT. Due on due Goal OARS. Due on due Goal ALT (SGPT). Due on due Goal Hepatitis C scre ening. Due on due Goal Medication Recon ciliation. Due on due Goal Height. Due on d ue Goal Zoster vaccine ( 1st). Due on due Goal AST (SGOT). Due on due Goal FIT. Due on due Goal Lipid panel. Due on due Goal Update Social Hi story. Due on due Goal FIT-DNA. Due on due Goal CT-Colonography. Due on due Goal Review Allergy List. Due on due Goal Tobacco Use. Due on due Goal Weight. Due on d ue Goal Unhealthy drug u se screening. Due on due Goal HPV. Due on due Goal IRON POURER Paperwork. Due on due Goal PHQ-9. Due on du e Goal PERSONAL CHEF Scanned. Due on due Goal Creatinine. Due on due Goal UDT. Due on due Goal OARS. Due on due Goal Zoster vaccine ( [...] Goal ALT (SGPT). Due on due Goal IRON POURER Paperwork. Due on due Goal Lipid panel. Due on due Goal AST (SGOT). Due on due Goal Weight. Due on d ue Goal Update Social Hi story. Due on due Goal Height. Due on d ue Goal UDT. Due on due Goal Review Allergy List. Due on due Goal IRON POURER Paperwork. Due on due Goal FIT. Due [...] Goal Lipid panel. Due on due Goal PERSONAL CHEF Scanned. Due on due Goal CT-Colonography. Due on due Goal Unhealthy drug u se screening. Due on due Goal FIT-DNA. Due on due Goal Weight. Due on d ue Goal Medication Recon ciliation. Due on due Goal Hepatitis C scre ening. Due on due Goal Zoster vaccine ( ). Due on due Goal Tobacco cessation counseling completed Goal PERSONAL CHEF Scanned. Due on due Goal UDT. Due [...] C scre ening. Due on due Goal IRON POURER Paperwork. Due on due Goal Unhealthy drug u se screening. Due on due Goal Review Allergy List. Due on due Goal Tobacco Use. Due on due Goal Creatinine. Due on due Goal Zoster vaccine ( 1st). Due on due Goal ALT (SGPT). Due on due Goal OARS. Due on due Goal ALT (SGPT). Due on due Goal UDT. Due on due Goal AST (SGOT). Due on due Goal IRON POURER Paperwork. Due on due Goal Creatinine. Due on due Goal PERSONAL CHEF Scanned. Due on 023 due Goal HPV. [...] due Goal UDT. Due on due Goal PERSONAL CHEF Scanned. Due on due Goal AST (SGOT). Due on due Goal Order Annual PT. Due on due Goal IRON POURER Paperwork. Due on due Goal PHQ-9. Due on du e Goal FIT-DNA. Due on due Goal CT-Colonography. Due on due Goal Weight. Due on d ue Goal Height. Due on d ue Goal Review Allergy List. Due on due Goal Creatinine. Due on due Goal HPV. Due on due Goal Update Social Hi story. Due on due Goal FIT. Due on due Goal Hepatitis C scre ening. Due on due Goal Unhealthy drug u se screening. Due on due Goal Medication Recon ciliation. Due on due Goal Zoster vaccine ( 1st). Due on due Goal Tobacco Use. Due on due Goal Lipid panel. Due on due Goal IRON POURER Paperwork. Due on due Goal AST (SGOT). Due on due Goal OARS. Due on due Goal Hepatitis C scre ening. Due on due Goal Tobacco Use. Due on due Goal Order Annual PT. Due on due Goal Lipid panel. Due on due Goal FIT. Due on due Goal Creatinine. Due on due Goal CT-Colonography. Due on due Goal PERSONAL CHEF Scanned. Due on due Goal Review Allergy List. Due on due Goal PHQ-9. Due on du e Goal Medication Recon ciliation. Due on due Goal Weight. Due on d ue Goal UDT. Due on due Goal HPV. Due on due Goal FIT-DNA. Due on due Goal Zoster vaccine ( 1st). Due on due Goal Unhealthy drug u se screening. Due on due Goal Height. Due on d ue Goal Update Social Hi story. Due on due Goal ALT (SGPT). Due on due Goal HPV. Due on due Goal CT-Colonography. Due on due Goal Medication Recon ciliation. Due on due Goal AST (SGOT). Due on due Goal IRON POURER Paperwork. Due on due Goal OARS. Due [...] Review Allergy List. Due on due Goal PERSONAL CHEF Scanned. Due on due Goal UDT. Due on due Goal Tobacco Use. Due on due Goal ALT (SGPT). Due on due Goal Order Annual PT. Due on due Goal Unhealthy drug u se screening. Due on due Goal Zoster vaccine ( ). Due on due Goal OARS. Due on due Goal Order Annual PT. Due on due Goal IRON POURER Paperwork. Due on due Goal PHQ-9. Due on du e Goal UDT. Due on due Goal Height. Due on d ue Goal Zoster vaccine ( ). Due on due Goal FIT. Due on [...] Social Hi story. Due on due Goal PERSONAL CHEF Scanned. Due on due Goal Review Allergy [...] due Goal CT-Colonography. Due on due Goal IRON POURER Paperwork. Due on due Goal AST (SGOT). [...] Goal Lipid panel. Due on due Goal PERSONAL CHEF Scanned. Due on due Goal UDT. Due on due Goal Weight. Due on d ue Goal Medication Recon ciliation. Due on due Goal PERSONAL CHEF Scanned. Due on due Goal IRON POURER Paperwork. Due on due Goal OARS. Due [...] due Goal FIT-DNA. Due on due Goal IRON POURER Paperwork. Due on due Goal PERSONAL CHEF Scanned. Due on 023 due Goal OARS. [...] C scre ening. Due on due Goal IRON POURER Paperwork. Due on due Goal FIT-DNA. Due on due Goal PHQ-9. Due on du e Goal Tobacco Use. Due on due Goal HPV. Due on due Goal Update Social Hi story. Due on due Goal CT-Colonography. Due on due Goal UDT. Due on due Goal Lipid panel. Due on due Goal FIT. Due on due Goal Height. Due on d ue Goal PERSONAL CHEF Scanned. Due on due Goal Medication Recon ciliation. Due on due Goal Unhealthy drug u se screening. Due on due Goal Weight. Due on d ue Goal Creatinine. Due on due Goal AST (SGOT). Due on due Goal Order Annual PT. Due on due Goal Zoster vaccine ( 1st). Due on due Goal Review Allergy List. Due on due Goal OARS. Due on due Goal ALT (SGPT). Due on due Goal Lipid panel. Due on due Goal Zoster vaccine ( 1st). Due on due Goal Creatinine. Due on due Goal Medication Recon ciliation. Due on due Goal PERSONAL CHEF Scanned. Due on due Goal Height. Due on d ue Goal UDT. Due on due Goal Order Annual PT. Due on due Goal IRON POURER Paperwork. Due on due Goal HPV. Due [...] u se screening. Due on due Goal PERSONAL CHEF Scanned. Due on due Goal Review Allergy List. Due on due Goal FIT. Due on due Goal Weight. Due on d ue Goal Creatinine. Due on due Goal PHQ-9. Due on du e Goal Medication Recon ciliation. Due on due Goal Unhealthy drug u se screening. Due on due Goal OARS. Due on due Goal FIT-DNA. Due on due Goal IRON POURER Paperwork. Due on due Goal Update Social [...] due Goal UDT. Due on due Goal PERSONAL CHEF Scanned. Due on due Goal Creatinine. Due on due Goal IRON POURER Paperwork. Due on due Goal Order Annual [...] vaccine ( 1st). Due on due Goal Tobacco Use. Due on due Goal CT-Colonography. Due on due Goal Lipid panel. Due on due Goal HPV. Due on due Goal Unhealthy drug u se screening. Due on due Goal Weight. Due on d ue Goal FIT. Due on due Goal PERSONAL CHEF Scanned. Due on due Goal AST (SGOT). Due on due Goal UDT. Due on due Goal Creatinine. Due on due Goal ALT (SGPT). Due on due Goal Order Annual PT. Due on due Goal Medication Recon ciliation. Due on due Goal Weight. Due on d ue Goal IRON POURER Paperwork. Due on due Goal FIT-DNA. Due on due Goal Update Social Hi story. Due on due Goal HPV. Due on due Goal FIT. Due on due Goal OARS. Due on due Goal Unhealthy drug u se screening. Due on due Goal PHQ-9. Due on du e Goal Lipid panel. Due on due Goal CT-Colonography. Due on due Goal Hepatitis C scre [...] C scre ening. Due on due Goal PERSONAL CHEF Scanned. Due on due Goal Medication Recon ciliation. Due on due Goal FIT. Due on due Goal PHQ-9. Due on du e Goal ALT (SGPT). Due on due Goal AST (SGOT). Due on due Goal Order Annual PT. Due on due Goal OARS. Due on due Goal IRON POURER Paperwork. Due on due Goal Zoster vaccine ( 1st). Due on due Goal Height. Due on d ue Goal Update Social Hi story. Due on due Goal Unhealthy drug u se screening. Due on due Goal Lipid panel. Due on due Goal HPV. Due on due Goal CT-Colonography. Due on due Goal ALT (SGPT). Due on due Goal IRON POURER Paperwork. Due on due Goal AST (SGOT). [...] ue Goal CT-Colonography. Due on due Goal PERSONAL CHEF Scanned. Due on due Goal Lipid panel. Due on due Goal ALT (SGPT). Due on due Goal AST (SGOT). Due on due Goal IRON POURER Paperwork. Due on due Goal PHQ-9. Due on du e Goal PERSONAL CHEF Scanned. Due on due Goal OARS. Due [...] vaccine ( ). Due on due Goal UDT. Due on due Goal AST (SGOT). Due on due Goal ALT (SGPT). Due on due Goal FIT-DNA. Due on due Goal Creatinine. Due on due Goal UDT. Due on due Goal Zoster vaccine ( ). Due on due Goal PERSONAL CHEF Scanned. Due on due Goal Lipid panel. Due on due Goal Unhealthy drug u se screening. Due on due Goal Order Annual PT. Due on due Goal OARS. Due on due Goal IRON POURER Paperwork. Due on due Goal Weight. Due [...] Order Annual PT. Due on due Goal PERSONAL CHEF Scanned. Due on due Goal ALT (SGPT). Due on due Goal Weight. Due on d ue Goal OARS. Due on due Goal AST (SGOT). Due on due Goal UDT. Due on due Goal Creatinine. Due on due Goal Update Social Hi story. Due on due Goal IRON POURER Paperwork. Due on due Goal Medication Recon [...] Goal Height. Due on d ue Goal PERSONAL CHEF Scanned. Due on due Goal Weight. Due on d ue Goal ALT (SGPT). Due on due Goal Creatinine. Due on due Goal IRON POURER Paperwork. Due on due Goal Order Annual PT. Due on due Goal Tobacco Use. Due on due Goal Medication Recon ciliation. Due on due Goal Update Social Hi story. Due on due Goal Unhealthy drug u se screening. Due on due Goal PERSONAL CHEF Scanned. Due on due Goal OARS. Due on due Goal ALT (SGPT). Due on due Goal Order Annual PT. Due on due Goal PHQ-9. Due on du e Goal Tobacco Use. Due on due Goal Creatinine. Due on due Goal FIT. Due on due Goal Hepatitis C scre ening. Due on due Goal UDT. Due on due Goal IRON POURER Paperwork. Due on due Goal AST (SGOT). [...] Order Annual PT. Due on due Goal IRON POURER Paperwork. Due on due Goal PERSONAL CHEF Scanned. Due on due Goal OARS. Due [...] Goal Lipid panel. Due on due Goal PERSONAL CHEF Scanned. Due on due Goal Tobacco Use. [...] vaccine ( 1st). Due on due Goal IRON POURER Paperwork. Due on due Goal Medication Recon ciliation. Due on due Goal Creatinine. Due on due Goal PHQ-9. Due on du e Goal Update Social Hi story. Due on due Goal ALT (SGPT). Due on due Goal UDT. Due on due Goal OARS. Due on due Goal CT-Colonography. Due on due Goal Review Allergy List. Due on due Goal IRON POURER Paperwork. Due on due Goal PHQ-9. Due [...] vaccine ( 1st). Due on due Goal PERSONAL CHEF Scanned. Due on due Goal Height. Due on d ue Goal CT-Colonography. Due on due Goal FIT. [...] ue Goal Creatinine. Due on due Goal Order Annual PT. Due on due Goal FIT-DNA. Due on due Goal IRON POURER Paperwork. Due on due Goal PERSONAL CHEF Scanned. Due on due Goal Zoster vaccine ( [...] Goal ALT (SGPT). Due on due Goal IRON POURER Paperwork. Due on due Goal OARS. Due on due Goal Update Social Hi story. Due on due Goal PERSONAL CHEF Scanned. Due on due Goal UDT. Due on due Goal Review Allergy List. Due on due Goal Creatinine. Due on due Goal FIT-DNA. Due on due Goal Height. Due on d ue Goal Unhealthy drug u se screening. Due on due Goal Lipid panel. Due on due Goal CT-Colonography. Due on due Goal FIT. Due on due Goal HPV. Due on due Goal Weight. Due on d ue Goal Zoster vaccine ( 1st). Due on due Goal Tobacco Use. Due on due Goal Hepatitis C scre ening. Due on due Goal PHQ-9. Due on du e Goal Medication Recon ciliation. Due on due Goal Update Social Publicate story. Due on due Goal Review Allergy List. Due on due Goal Unhealthy drug u se screening. Due on due Goal FIT. Due on due Goal Height. Due on d ue Goal AST (SGOT). Due on due Goal Lipid panel. Due on due Goal Order Annual PT. Due on due Goal Weight. Due on d ue Goal PERSONAL CHEF Scanned. Due on due Goal ALT (SGPT). Due on due Goal PHQ-9. Due on du e Goal CT-Colonography. Due on due Goal Creatinine. Due on due Goal Hepatitis C scre ening. Due on due Goal UDT. Due on due Goal IRON POURER Paperwork. Due on due Goal Zoster vaccine [...] due Goal Creatinine. Due on due Goal IRON POURER Paperwork. Due on due Goal Medication Recon ciliation. Due on due Goal PERSONAL CHEF Scanned. Due on due Goal PHQ-9. Due [...] Goal Height. Due on d ue Goal PERSONAL CHEF Scanned. Due on due Goal Creatinine. Due on due Goal UDT. Due on due Goal ALT (SGPT). Due on due Goal Review Allergy List. Due on due Goal IRON POURER Paperwork. Due on due Goal Order Annual [...] Goal ALT (SGPT). Due on due Goal PERSONAL CHEF Scanned. Due on due Goal IRON POURER Paperwork. Due on due Goal Height. Due [...] Goal Height. Due on d ue Goal PERSONAL CHEF Scanned. Due on due Goal OARS. Due on due Goal Weight. Due on d ue Goal Creatinine. Due on due Goal AST (SGOT). Due on due Goal IRON POURER Paperwork. Due on due Goal UDT. Due on due Goal Review Allergy List. Due on due Goal Update Social Hi story. Due on due Goal Order Annual PT. Due on due Goal Tobacco Use. Due on due Goal Height. Due on d ue Goal PHQ-9. Due on du e Goal IRON POURER Paperwork. Due on due Goal Order Annual PT. Due on due Goal Tobacco Use. Due on due Goal Update Social Hi story. Due on due Goal OARS. Due on due Goal Weight. Due on d ue Goal PERSONAL CHEF Scanned. Due on due Goal Medication Recon ciliation. Due on due Goal UDT. Due on due Goal ALT (SGPT). Due on due Goal Review Allergy List. Due on due Goal Creatinine. Due on due Goal AST (SGOT). Due on due Goal IRON POURER Paperwork. Due on due Goal Order Annual PT. Due on due Goal PERSONAL CHEF Scanned. Due on due Goal Creatinine. Due [...] Order Annual PT. Due on due Goal PERSONAL CHEF Scanned. Due on due Goal Weight. Due on d ue Goal Update Social Hi story. Due on due Goal IRON POURER Paperwork. Due on due Goal Tobacco Use. Due on due Goal ALT (SGPT). Due on due Goal Creatinine. Due on due Goal Height. Due on d ue Goal Review Allergy List. Due on due Goal PHQ-9. Due on du e Goal Creatinine. Due on due Goal IRON POURER Paperwork. Due on due Goal PERSONAL CHEF Scanned. Due on due Goal Review Allergy [...] Goal AST (SGOT). Due on due Goal PERSONAL CHEF Scanned. Due on due Goal IRON POURER Paperwork. Due on due Goal Update Social Hi story. Due on due Goal UDT. Due on due Goal ALT (SGPT). Due on due Goal Medication Recon ciliation. Due on due Goal PHQ-9. Due on du e Goal Review Allergy List. Due on due Goal Order Annual PT. Due on due Goal PERSONAL CHEF Scanned. Due on due Goal Creatinine. Due on due Goal IRON POURER Paperwork. Due on due Goal OARS. Due [...] Review Allergy List. Due on due Goal IRON POURER Paperwork. Due on due Goal PERSONAL CHEF Scanned. Due on due Goal Medication Recon ciliation. Due on due Goal Creatinine. Due on due Goal Tobacco Use. Due on due Goal Height. Due on d ue Goal AST (SGOT). Due on due Goal AST (SGOT). Due on due Goal ALT (SGPT). Due on due Goal PERSONAL CHEF Scanned. Due on due Goal Creatinine. Due on due Goal IRON POURER Paperwork. Due on due Goal OARS. Due on due Goal Order Annual PT. Due on due Goal Update Social Hi story. Due on due Goal Height. Due on d ue Goal Weight. Due on d ue Goal Medication Recon ciliation. Due on due Goal UDT. Due on due Goal Tobacco Use. Due on due Goal PHQ-9. Due on du e Goal Review Allergy List. Due on due Goal Order Annual PT. Due on due Goal Review Allergy List. Due on due Goal Tobacco Use. Due on due Goal Creatinine. Due on due Goal IRON POURER Paperwork. Due on due Goal AST (SGOT). Due on due Goal PERSONAL CHEF Scanned. Due on due Goal Weight. Due [...] Goal Tobacco Use. Due on due Goal IRON POURER Paperwork. Due on due Goal PERSONAL CHEF Scanned. Due on due Goal Order Annual PT. Due on due Goal OARS. Due on due Goal AST (SGOT). Due on due Goal ALT (SGPT). Due on due Goal Medication Recon ciliation. Due on due Goal UDT. Due on due Goal Weight. Due on d ue Goal Review Allergy List. Due on due Goal Height. Due on d ue Goal PHQ-9. Due on miguel carter Appointment Belkis Manjarrez BOOKED Future Order: Lab Order Drug Tara t Def 22+ Classes (G0483), Ordered on: Ordered History Of Present Illness Encounter Date Complaint History Of Prese nt Illness Comments: Belkis richardson resents for a follow up and medication refill regarding ongoing low back pain. Patient reports her lower back pain has fluctuating since [place]. Ongoing difficulty sleepingContinues with IV chemotherapy and recent scans predict she has 1 year left to live based on her stage 4 lung cancer progression. Working on decreasing prednisone. Injections are still not recommended. Following with ENT and recently had her ears drained which has made her feel better. Also will be consulting with neurology through [facility] in the near future.Reports current medication regimen provides 50-60% pain relief. Denies any side effects with current medication. No other concerns today. low back pain Severity level i s 5. Duration: chronic. The problem is fluctuating. It occurs persistently. The client describes the pain as an ache and sharp. Symptoms are aggravated by ascending stairs, descending stairs, lifting, housework and prolonged positioning. Symptoms are relieved by pain meds/drugs, stretching, walking and changing positions. low back pain Severity level i s 8. Duration: chronic. The problem is worsening. It occurs persistently. Location of pain is lower back. Comments: Belkis dylan resents virtually for a follow up and [...] tabs short today and admits to self-escalation. IRON POURER violation issued. Denies any side effects with [...] into getting hearing aids. 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 Continues to have relief with her Oxycodone 10mg. Feels her pain is overall managed at this time. Presents with a small surplus today. Denies any side effects with current medication. No other concerns today. Comments: Belkis richardson resents via [facility] for a virtual follow up and medication [...] left back. Comments: Belkis richardson resents via [facility] for a virtual follow up and medication [...] lower left back. Comments: Belkis richardson resents in clinic today [...] changing positions. Pertinent negatives include bladder incontinence. Neck Pain The severity of the problem [...] tasks. No other concerns today. Comments: Belkis bee s present here today for follow up [...] that she will have to travel to [place] in January for work; notes that she will also have to travel back to [place] for work as well.Current medication regimen of Milbridge 5-325mg provides 50-60% pain relief for increased [...] her recent long flight.Continues to use her Milbridge sparingly which she notices an appreciable benefit. [...] at previous OV. Continues to use her Milbridge sparingly which she notices an appreciable benefit. [...] completed on August 02, 2021 at the [facility]. She is requesting to repeat injections late October as she is nervous for her 10 hour flight for a work related trip to [place]. Continues to use her Milbridge sparingly which she notices an appreciable benefit.Patient [...] with prescribed medication. Continues to take her Milbridge sparingly. This helps her maintain her lowest [...] meds/drugs, stretching and changing positions. Comments: Belkis p resents for virtual follow-up and medication management. [...] recently.Of note, she is traveling to [place] soon.She reports greater than 50% relief with her medication regimen. Denies any side effects. Presents on track with prescribed medication. Continues to take her Milbridge sparingly. This helps her maintain her lowest [...] with prescribed medication. Continues to take her Milbridge sparingly. This helps her maintain her lowest [...] ordered at previous OV.Continues to take her Milbridge sparingly. This helps her maintain her lowest [...] is due to recently traveling back from [place] to [place]. She spent the winter in [place]. Her worst complaint is her left side pain. She requests repeat TPI's as well as a repeat left SI joint injection. Previous TPI's and SI joint injection provided greater than 70% relief for over three months. She also notices functional improvements with the injections.Continues to take her Milbridge sparingly. This helps her maintain her lowest [...] OV. Notes she continues to benefit from Milbridge and requests a refill. Of note, she has been able to enjoy her time in [place]. Reports current medication regimen provides 50-60% pain [...] prolonged positioning during her car ride to [place]. Pain has slowly been returning to baseline. Notes she continues to benefit from Milbridge and requests a refill. Reports current medication [...] Of note, patient plans to travel to [place] for 3 months starting on 02/02. She looks forward to being in the warm weather so she can be more active. She inquires about how to fill her medications while she is in [place]. Reports current medication regimen provides 50-60% pain [...] is charlaemma mooney with us today via [facility] Virtual Visit for follow up and medication [...] rest. Back Pain (comments) Belkis is charlaemma johng with us today via [facility] Virtual Visit [...] positions. Back Pain (comments) Belkis is charla johng with us today via [facility] Virtual Visit [...] morning. 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 Dr. Henry is requesting [facility] takeover patient's pain management regimen. 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 Currently established with [facility] and [facility] assessment Chronic pain syndrome impression Belkis is a 57 y/o fem kenan that presents for chronic low back and bilateral SI joint pain. Fluctuating since [place] assessment Sacroiliitis impression Chronic bilateral SI joint pain (L>R), fluctuating since last OV. Forwarded History: S/p repeat LEFT SI joint injections 04/05/[address] Rey with >80% relief for ~3 months. Also reported increased ability to function and complete her ADLs. S/p repeat left SI joint injection on 12/13/22 reports ~70% relief assessment Spinal stenosis, lumbar region A impression Chronic low back rosangela n, fluctuating since last OV. Forwarded/Pertinent History:Lumbar MRI report 04/05/2019 from [facility] previously reviewed and showed:1. L5-S1 advanced disc degeneration with severe left foraminal stenosis.2. L4-5 2mm spondylolisthesis with mild central canal stenosis, facet arthopathy and moderate denerative disc disease.3. L3-4 moderate degenerative disc disease assessment Radiculopathy, lumbar region May impression Chronic low back rosangela n, fluctuating since last OV. Occasional radiating sx down LLE. Forwarded History: BL L5-S1 TFESI on 01/19/[address] Jose provided more than 50% relief.Completed PT in the past and continues home exercises with benefit assessment Myalgia, other site impression Ongoing muscle spasms. 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 Current regimen relieves 50-60% of the pain, does not cause significant side effects, and increases the patient's daily activity level. Pt presents with a small surplus of medication today. Patient is currently prescribed 60 MME per day. Patient has been managing medications appropriately, and is not confused or oversedated during our office visit. Most recent UDT from 03/20/23 reviewed and consistent with current medication regimen. Appropriate to continue with opioid therapy assessment Encounter for therapeutic drug l evel monitoring Mental Status Date Cognitive Assessment Orientation - Miller ed to time, place, person, situation.Normal Orientation Patient Care Teams Name Effective Dates (start - stop) Status Members No Information
--- OUTSIDE RECORDS SUMMARY | 2023-06-24 08:07 | XMS_ITS | Continuity of Care Document ---
Author Name Unknown Organization [facility] Address [address] [place] [id number] Care Team Providers Care Fiberglass Insulation Installer Name Role Phone [facility] Unavailable Unav ailable Procedures Procedure Date INJECT SACROILIAC JOINT Inj for sacroiliac jt anesth Inj for sacroiliac jt anesth INJ FORAMEN EPIDURAL L/S INJ FORAMEN EPIDURAL L/S Inj for sacroiliac jt anesth Advance Directives Directive Yes / No Effective Date File Name No Information Encounters Encounter Description Practice Location Reason(s) For Visit Diagnoses Date Provider Providers Copied on Encounter [facility], [address] [place] [address], [id number], [facility] No Information [facility]. [address] [place] [address], [id number], . tel:[phone] Referring Provider: Renetta Bush, [address] [place] [address], [id number]. tel:[phone] [facility], [address] [place] [address], [id number], [facility] No Information [facility]. [address] [place] [address], [id number], . tel:[phone] Referring Provider: Renetta Bush, [address] [place] [address], [id number]. tel:[phone] [facility], [address] [place], [place], [id number], [facility] [place] No Information [facility]. [address] [place], [place], [id number], . tel:[phone] Referring Provider: Beth Vick, [address] [place], [address]. tel:[phone] [facility], [address] [place], [place], [id number], [facility] No Information [facility]. [address] [place], [place], [id number], . tel:[phone] Referring Provider: Miles Jiménez, [address] [place], [address]. tel:[phone] Family History Family Member Type Diagnosis Age [...]
== END 2023-06-24 08:04 | disposition home or self-care (01) ==
LOC: NFLDREF 08:04
PROVIDERS: PCP Family Medicine; Visit Provider Family Medicine
DX: I10 Essential (primary) hypertension (principal); Z79.899 Other long term (current) drug therapy
CPT/HCPCS: 80053; 80177

== ENCOUNTER 2023-08-07 06:58 | Outpatient (CLI) | payer BC, SELFPAY ==
--- OUTSIDE RECORDS SUMMARY | 2023-08-07 07:00 | XMS_ITS | Clinical Summary ---
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 For routine questions regarding patient records, call [phone] during business hours, M-F 8:00 AM - 5:00 PM Central Time. Record requests for emergency care only can be directed to [phone] at any time.[facility] Allergies No known active allergies Medications Medication Sig Dispensed Refills Start Date End Date Status amLODIPine (NORVASC) 5 mg tablet Take 5 mg by mouth daily. 04/18/2022 Active acetaminophen (TYLENOL) 500 mg tablet Twice A Day as needed Active ibuprofen (ADVIL,MOTRIN) 200 mg tablet Take 200 mg by mouth 4 (four) times a day as needed. 08/11/2009 Active levothyroxine (SYNTHROID, LEVOTHROID) 100 mcg tablet Take 100 mcg by mouth daily. 04/18/2022 Active atorvastatin (LIPITOR) 20 mg tablet 20 MG ORALLY EVERY DAY AT BEDTIME 05/12/2022 Active prochlorperazine (COMPAZINE) 25 mg suppository Insert 10 mg into the rectum every 12 (twelve) hours as needed for nausea or vomiting. Active Advair Diskus 250-50 mcg/act diskus inhaler Inhale 1 puff 2 (two) times a day. 12/13/2022 Active oxyCODONE (ROXICODONE) 5 mg immediate release tablet TAKE 1 - 2 TABLET BY ORAL ROUTE THREE TIMES DAILY NEEDED, MAX 3/DAY 12/14/2022 Active omeprazole (PriLOSEC) [address] capsule Take 1 capsule (20 mg total) by mouth every morning before breakfast. 30 capsule 1 05/12/2023 Active Additional Information Patient not taking.Reported on 07/07/2023 busPIRone (BUSPAR) 10 mg tablet Take 1 tablet by mouth 3 (three) times a day with meals. 04/24/2023 Active dexAMETHasone (DECADRON) 2 mg tablet Starting 06/02/2023, take 4 mg in the morning and 2 mg in the afternoon. Then starting 06/09/2023 decrease to 4 mg in the morning. 06/16/2023 decrease to 2 mg in the morning. 42 tablet 05/31/2023 Active Additional Information Patient not taking.Reported on 07/07/2023 LORazepam (ATIVAN) 1 mg tablet Take 1 mg by mouth as needed. 07/04/2023 Active prochlorperazine (COMPAZINE) 5 mg tablet as needed. After chemo 06/16/2023 Active lacosamide (VIMPAT) 50 mg tablet Take 1 tablet (50 mg total) by mouth 2 (two) times a day. 60 tablet 2 07/09/2023 4 Active levETIRAcetam (Keppra) 100 mg/mL solutionIndicatio ns:Secondary Malignant Neoplasm Brain (HCC) Take 30 mL (3,000 mg total) by mouth every morning AND 20 mL (2,000 mg total) every evening. 4500 mL 3 07/28/2023 5 Active levETIRAcetam (KEPPRA) 100 mg/mL solutionIndicatio ns:Secondary Malignant Neoplasm Brain (HCC) Take 17.5 mL (1,750 mg total) by mouth 2 (two) times a day. 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 08/04/2023 Orders Only Department of Oncology in [place], [place] [address] [place] [address] Tita Driver M.D. 07/28/2023 Refill Department of Neurology in [place], [place] [address] [place] [phone] Mohinder Ariza M.D. Med Refill 07/09/2023 4:00 PM CDT Telemedicine Department of Neurology in [place], [place] [address] [place] [phone] Mohinder Ariza M.D. 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 Discuss medications 06/23/2023 Orders Only Department of Neurology in [address] [address] Edgardo Mccord M.D. 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 Secondary Malignant Neoplasm Brain (HCC); Seizure (HCC) Discharge Disposition: Home or Self Care 06/16/2023 Clinical Communication Department of Neurology in [place], [place] [address] [place] [phone] Mohinder Ariza M.D. Communication (? Seizure) 05/30/2023 8:00 AM CDT Telemedicine Department of Oncology in [place], [place] [address] [place] [phone] Mohinder Ariza M.D. Secondary Malignant Neoplasm Brain (HCC) (Primary Dx); Seizure (HCC) 05/28/2023 9:00 AM CDT Clinical Communication Virtual Review in [place], [place] [address] [place] [address] 05/23/2023 Orders Only Department of Neurology in [place], [place] [address] [place] [phone] Darion Heaton M.D. Secondary Malignant Neoplasm Brain (HCC) (Primary Dx); Seizure (HCC) 05/22/2023 Orders Only Department of Neurology in [place], [place] [address] [place] [phone] Darion Heaton M.D. 05/20/2023 Clinical Communication Department of Neurology in [place], [place] [address] [place] [phone] Lucy Bueno, Fuad Update on Seizure/Episodes 05/12/2023 Refill Department of Neurology in [place], [place] [address] [place] [phone] Mohinder Ariza M.D. Med Refill 05/12/2023 Orders Only Department of Neurology in [place], [place] [address] [place] [phone] Mohinder Ariza M.D. 05/12/2023 Refill Department of Neurology in [place], [place] [address] [place] [phone] Mohinder Ariza M.D. Med Refill 05/09/2023 9:00 AM CDT - 05/09/2023 12:56 PM CDT Hospital Encounter Department of Radiation Oncology in [place], [place] [address] [place] [phone] Marnie Schultz APRN, CDanielN.P., Dao.Geraldine Stokes R.N. 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 Secondary Malignant Neoplasm Brain (HCC) 05/08/2023 8:05 AM CDT - 05/08/2023 8:59 AM CDT Hospital Encounter Department of Radiation Oncology in [address] [address] Radha Patterson M.D. Discharge Disposition: Home or Self Care 05/08/2023 Documentation Department of Radiation Oncology in [address] [phone] Radha Patterson M.D. 05/08/2023 Orders Only Department of Neurology in [place], [place] [address] [place] [address] Mohinder Ariza M.D. 05/08/2023 Documentation Department of Neurology in [place], [place] [address] [place] [phone] Mohinder Ariza M.D. 05/08/2023 Clinical Communication Department of Neurology in [place], [place] [address] [place] [address] Mohinder Ariza M.D. 05/07/2023 11:53 AM CDT - 05/07/2023 4:36 PM CDT Hospital Encounter Department of Radiation Oncology in [address] [address] Radha Patterson M.D. Secondary Malignant Neoplasm Brain (HCC) 05/07/2023 11:53 AM CDT - 05/07/2023 11:59 PM CDT Hospital Encounter Department of Radiation Oncology in [place] [address] [place] [phone] Radha Patterson M.D. Discharge Disposition: Home or Self Care from Last 3 Months Family History Medical History Relation Name Comments Leukemia Brother Breast cancer Paternal Grandmother Relation Name Status Comments Brother Paternal Grandmother Social History Tobacco Use Types Packs/Day Years Used Date Smoking Tobacco: Every Day Cigarettes Smokeless Tobacco: Never Tobacco Cessation:Ready to Q [...] living? No 05/07/2023 Nutrition Answer Date Recorded On average, how many serving s of [...] your living situation today? 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 Respiratory Rate - - Oxygen Saturation - - Inhaled Oxygen Concentration - - Weight 69.2 kg (152 lb 8.9 oz) 06/20/2023 9:46 A M CDT Height 171 cm (5' 7.32) 06/20/2023 9:46 AM CDT Body Mass Index 23.67 06/20/2023 9:46 AM CDT Plan of Treatment Health Maintenance Due [...] - Td or Tdap) 06/15/2022 06/15/2012, 12/14/2003 Depression Screening (Annual PHQ-2) 02/17/2023 Influenza Vaccine Completed 11/22/2022, , 02/08/2009 COVID-19 Vaccine Completed 11/25/2022, 07/2021, 12/28/2020, Additional history exists Zoster Vaccines Completed 12/02/2022, 05/31/2022 HPV Vaccines Aged Out No longer eligi ble based on patient's age to complete this topic Medical Devices Implanted Type Area Set Up Technician Device Identifier Shelf Expiration Date Model / Serial / Lot Ankle Implant Ankle Implant Right: Ankle Description:hardware Procedures Procedure Name Priority Date/Time Associated Diagnosis Comments OUTSIDE NM PET Routine 07/31/2023 8:30 AM CDT EEG ROUTINE - AWAKE AND SLEEP Routine 06/19/2023 2:41 PM CDT Secondary Malignant Neoplasm Brain (HCC) Seizure (HCC) OUTSIDE NM PET Routine 05/29/2023 3:15 PM CDT OUTSIDE MR NEURO Routine 05/28/2023 7:[address] NEURO Routine 05/20/2023 3:35 PM [facility]T [facility] Routine 05/08/2023 8:51 AM CDT ARIA DAILY TREATMENT INFORMATION Routine 05/08/2023 8:51 AM CDT ARIA DAILY TREATMENT INFORMATION Routine 05/07/2023 12:21 PM CDT from Last 3 Months Results * PET CT SKULL BASE TO MID THIGH SUBSEQUENT TREAT-Outside NM Pet (07/31/2023 8:30 AM CDT) Only the most recent of2 resultswithin the time period is included. 07/31/2023 8:29 AM CDT Narrative IIMS - 07/31/2023 10:33 AM CDT This order has been created and auto-finalized to support the import of outside images. If available, original interpretation can be found on the Media Tab in Chart Review, in Document Viewer, as an image in QREADS or as an Addendum. If a re-interpretation or overread is required please follow defined workflow.?? Provider Not In System IMG NM PROCEDURES IIMS NA * EEG routine - awake and sleep (06/19/2023 2:41 PM CDT) Narrative MMODAL - 06/19/2023 3:36 PM CDT Clinical interpretation: During wakefulness and drowsiness the EEG shows occasional generalized (maximal posterior regions) background slowing that indicates mild generalized cerebral dysfunction of nonspecific etiology. During sleep the EEG shows no abnormalities. No potentially epileptogenic activity is present. Classification: Special study - Short-term video EEG recording. Dysrhythmia grade 1 generalized (maximal posterior regions). Drowsiness and sleep - no activation of epileptiform discharges. EKG channel. Report: The background contained abundant, low to moderate amplitude, symmetric posterior regions 10-11 Hz alpha activity. This showed bilateral attenuation with eye opening. There was occasional, low to moderate amplitude, symmetric 6-7 Hz generalized (maximal posterior regions) theta activity that was more abundant and frequently had higher amplitude ?? during drowsiness. Hyperventilation produced no change. Photic stimulation elicited frequent, low to moderate amplitude, symmetric posterior driving responses. The patient fell asleep spontaneously during the recording, and adequate levels of sleep were attained. During sleep there were frequent, symmetric sleep spindles and rare, symmetric V waves. Drowsiness and sleep showed no activation of epileptiform discharges. An EKG channel showed regular rhythm with a rate of 66/min. Darion Heaton M.D. NEUROLOGY ORDERABLES Performing Organization Address [facility] Co de Phone Number MMODAL NA * MR head/brain wo/w con-Outside MR Neuro (05/28/2023 7:25 AM CDT) Narrative IIAL - 05/28/2023 2:54 PM CDT This order [...] IMG MRI PROCEDURE S Performing Organization Address [facility] Co de Phone Number IIMS NA * CT HEAD/BRAIN WO CON-Outside CT Neuro (05/20/2023 3:35 PM CDT) 05/20/2023 3:32 PM CDT Narrative IIMS - [...] Provider Not In System IMG CT PROCEDURES [facility] NA * Aria Course Complete Treatment Information (05/08/2023 8:51 AM CDT) Course ID [id number] sSRT BRUNO ARIA Course Start Date 4 12:50 CDT BRUNO ARIA Course End Date 4 15:24 CDT BRUNO ARIA First Treatment Date 4 16:26 CDT BRUNO ARIA Last Treatment Date 4 08:51 CDT BRUNO ARIA Treatment Elapsed Days 2 BRUNO ARIA Reference Point [id number] BRUNO ARIA Dosage Given to Date cGy 2700 BRUNO ARIA Plan ID [id number] BRUNO ARIA Fractions Treated to Date 3 BRUNO ARIA Planned Total Fractions 3 BRUNO ARIA Prescribed Dose Per Fraction 900 BRUNO ARIA Prescription Dose in cGy 2700 BRUNO ARIA Plan Primary Reference Point [id number] BRUNO ARIA 05/08/2023 8:51 AM CDT Provider Not In System RADIATION ONCOLOG Y ORDERABLES BRUNO GLADISA na * Aria Daily Treatment Information (05/08/2023 8:51 AM CDT) Only the most recent of2 resultswithin the time period is included. Course ID [id number] sSRT BRUNO ARIA Course Start Date 4 12:50 CDT BRUNO ARIA First Treatment Date 4 16:26 CDT BRUNO ARIA Last Treatment Date 4 08:51 CDT BRUNO ARIA Treatment Elapsed Days 2 BRUNO ARIA Reference Point [id number] BRUNO ARIA Dosage Given to Date cGy 2700 BRUNO ARIA Session Dosage Given 900 BRUNO ARIA Plan ID [id number] BRUNO ARIA Fractions Treated to Date 3 BRUNO ARIA Planned Total Fractions 3 BRUNO ARIA Prescribed Dose Per Fraction 900 BRUNO ARIA Prescription Dose in cGy 2700 BRUNO ARIA Plan Primary Reference Point [id number] BRUNO ARIA 05/08/2023 8:51 AM CDT Provider Not In System RADIATION ONCOLOG Y ORDERABLES DAMION GOLDSTEIN na from Last 3 Months
--- OUTSIDE RECORDS SUMMARY | 2023-08-07 07:01 | XMS_ITS | Encounter Summary ---
Author Organization [facility] Address [address] [place] [address] Care Team Providers Care Eligibility Clerk Name Role Phone Unavailable Primary Care Provider Unavailabl e Reason for Referral * MRI/CAT/PET Scan (Routine) - Pending Review Specialty Diagnoses / Procedures Referred By Randy christiansen Referred To Contact Radiology Diagnoses Secondary Malignant Neoplasm Brain (HCC) Seizure (HCC) Procedures MR Brain Perfusion without and with IV Contrast Mohinder Ariza M.D. [address] [place] [phone] [employer] Referral ID Status Reason Start Date Expiration Date V isits Requested Visits Authorized [id number] Pending Review 05/31/2023 05/30/2024 1 1 * Outpatient (Routine) - Authorized Specialty Diagnoses / Procedures Referred By Randy christiansen Referred To Contact Oncology Mohinder Ariza M.D. [address] [place] [phone] [employer] Referral ID Status Reason Start Date Expiration Date V isits Requested Visits Authorized [id number] Authorized 05/31/2023 11/29/2024 1 1 Reason for Visit * Outpatient (Routine) - Closed Specialty Diagnoses / Procedures Referred By Randy christiansen Referred To Contact Neurology Mohinder Ariza M.D. [address] [place] [phone] [facility] [employer] Referral ID Status Reason Start Date Expiration Date Visits Re quested Visits Authorized [id number] Closed 05/08/2023 11/06/2024 1 1 Encounter Details Date Type Department Care Team (Late st Contact Info) Description 05/30/2023 8:00 AM CDT Telemedicine Department of Oncology in [place], [place] [address] [place] [phone] Mohinder Ariza M.D. [address] [place] [phone] Secondary Malignant Neoplasm Brain (HCC) (Primary Dx); Seizure (HCC) Social History Tobacco Use Types Packs/Day Years Used Date Smoking Tobacco: Every Day Cigarettes Smokeless Tobacco: Never Alcohol Use Standard Drinks/Week Comments Not Currently 0 (1 standard drink = 0.6 oz pur e alcohol) [facility] Utilities Answer Date Recorded In the past 12 months has [employer], [employer], oil, or water [facility] threatened to shut off services in your [...] your living situation today? I have a sophie place to live 05/07/2023 Sex and Gender Information Value Date Recorded Sex Assigned at Female 05/07/2023 9:41 AM CDT Gender Identity Female 05/07/2023 9:41 AM CDT Sexual Orientation Straight 05/07/2023 9: 41 AM CDT documented as of this encounter Progress Notes * Mohinder Ariza M.D. - 05/30/2023 8:00 AM CDT SUBJECTIVE CHIEF COMPLAINT / REASON [...] 05/27/2022 Other Patient presented to ED at [facility] for right-sided chest pain. Recommended follow up with windshield repair technician for bronchoscopy based on imaging. 05/27/2022 Critical [...] Evaluated by Dr. Tita Driver, Medical Oncology [facility]. Recommended immediate radiation referral for [...] Critical Imaging The patient presented to the [facility] ER after experiencing a focal [...] gyrus may contribute to the patient's symptoms. 05/06/2023 - 05/08/2023 Radiation Therapy SRT to brain metastasis delivered in 3 fractions to a dose of 2700 cGy We met today to discuss post-RT baseline MRI brain and next steps. Clinically, patient is finally and markedly improved with resolution of episodes that had been concerning for seizures. No significant headache burden is reported. No new weakness is reported. In addition, she had wax removal from her ears which improved her hearing as well as her sense of balance. The following portions of the patient's history [...] evident. No incoordination evident. DATA: MRI brain that was completed 05/28/2023 ahead of the visit locally reviewed. Overall, there is significant positive radiographic response throughout. All involved lesions are either stable or decreased in size. There are no new lesions I can identify. Reviewed outside radiology report, which also stated the same. ASSESSMENT / PLAN #1 Secondary Malignant Neoplasm Brain (HCC) #2 Seizure (HCC) Belkis Manjarrez is a 57 y.o. female who presents for evaluation of brain metastases and associated suspected seizures. Patient has completed course of radiation therapy. She has improved in terms of seizures. She has also improved in terms of hearing and sense of balance since ear wax removal. MRI brain is very encouraging in that there is an overall decrease in enhancement and cerebral edema with no new lesions. This indicates a positive response to interval radiation therapy. Summary of Plan: - Dexamethasone: Patient is currently taking 4 mg twice a day. We will decrease dose as follows: - 06/02/2023 decrease to 4 mg in the morning and 2 mg in the afternoon. - 06/09/2023 decrease to 4 mg in the morning. - 06/16/2023 decrease to 2 mg in the morning. - 06/23/2023 decrease to 1 mg in the morning. - 06/30/2023 decrease to 0.5 mg in the morning, then stop. - For the moment, sending rx for 2 mg tablets to handle taper through the beginning of June. Requesting family update us through the portal at that point so we can prescribe further taper if the dose decrease is being tolerated. - Keppra: We had increased dose most recently to 1750 mg BID. Following dexamethasone taper, we candecrease to 1500 mg in the morning and 1750 mg in the evening for 1 month; then decrease to 1500 mgtwice a day. - We will cancel the MRI booked for June, but keep the visit with me so we can regroup in terms of how steroid taper is going and how well seizures are controlled. - Repeat MRI brain in 3 months, visit with me after imaging. documented in this encounter Plan of Treatment Scheduled Orders Name Type Priority Associated Diagnoses Orde r Schedule MR Brain Perfusion without and with IV Contrast Imaging RAD - Routine (most inpatients and all outpatients) Secondary Malignant Neoplasm Brain (HCC) Seizure (HCC) Expected: 08/30/2023 (Approximate), Expires: 08/29/2024 Scheduled Referrals Name Type Priority Associated Diagnoses Orde r Schedule Oncology office visit (clinic) Outpatient Referral Routine Expected: 08/30/2023 (Approximate), Expires: 08/29/2024 documented as of this encounter Visit Diagnoses Diagnosis Secondary Malignant Neoplasm Brain (HCC)- Primary Seizure (HCC) documented in this encounter
--- OUTSIDE RECORDS SUMMARY | 2023-08-07 07:01 | XMS_ITS | Encounter Summary ---
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 [address] [place] [address] Social History Tobacco Use Types Packs/Day Years Used Date Smoking Tobacco: Every Day Cigarettes Smokeless Tobacco: Never Alcohol Use Standard Drinks/Week Comments Not Currently 0 (1 standard drink = 0.6 oz pur e alcohol) [facility] Utilities Answer Date Recorded In the [...] your living situation today? I have a [facility] place to live 05/07/2023 Sex and Gender Information Value Date Recorded Sex Assigned at Female 05/07/2023 9:41 AM CDT Gender Identity Female 05/07/2023 9:41 AM CDT Sexual Orientation Straight 05/07/2023 9: 41 AM CDT documented as of this encounter Plan of Treatment Not on file documented as of this encounter Visit Diagnoses Not on filedocumented in this encounter
--- OUTSIDE RECORDS SUMMARY | 2023-08-07 07:01 | XMS_ITS | Referral Summary ---
Author Organization [facility] Address [address] [place] [address] Care Team Providers Care Scout Executive Name Role Phone Unavailable Primary Care Provider Unavailabl e Source Comments Patient records contain information from all sites at [facility]. For routine questions regarding patient records, call [phone] during business hours, M-F 8:00 AM - 5:00 PM Central Time. Record requests for emergency care only can be directed to [phone] at any time.[facility] Encounters Date Type Department Care Team Description 08/05/2023 Orders Only Department of Oncology in [place], [place] [address] [place] [address] Tita Driver M.D. 08/04/2023 Orders Only Department of Oncology in [place], [place] [address] [place] [address] Tita Driver M.D. 07/28/2023 Refill Department of Neurology in [place], [place] [address] [place] [address] Mohinder Ariza M.D. Med Refill 07/09/2023 4:00 PM CDT Telemedicine Department of Neurology in [place], [place] [address] [place] [phone] Mohinder Ariza M.D. 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 Discuss medications 06/23/2023 Orders Only Department of Neurology in [address] [address] Edgardo Mccord M.D. 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 Secondary Malignant Neoplasm Brain (HCC); Seizure (HCC) Discharge Disposition: Home or Self Care 06/16/2023 Clinical Communication Department of Neurology in [address] [address] Mohinder Ariza M.D. Communication (? Seizure) 05/30/2023 8:00 AM CDT Telemedicine Department of Oncology in [address] [address] Mohinder Ariza M.D. Secondary Malignant Neoplasm Brain (HCC) (Primary Dx); Seizure (HCC) 05/28/2023 9:00 AM CDT Clinical Communication Virtual Review in [address] [address] 05/23/2023 Orders Only Department of Neurology in [address] [address] Darion Heaton M.D. Secondary Malignant Neoplasm Brain (HCC) (Primary Dx); Seizure (HCC) 05/22/2023 Orders Only Department of Neurology in [place], [place] [address] [place] [address] Darion Heaton M.D. 05/20/2023 Clinical Communication Department of Neurology in [place], [place] [address] [place] [address] Lucy Bueno R.N. Update on Seizure/Episodes 05/12/2023 Refill Department of Neurology in [place], [place] [address] [place] [address] Mohinder Ariza M.D. Med Refill 05/12/2023 Orders Only Department of Neurology in [place], [place] [address] [place] [address] Mohinder Ariza M.D. 05/12/2023 Refill Department of Neurology in [place], [place] [address] [place] [address] Mohinder Ariza M.D. Med Refill 05/09/2023 9:00 AM CDT - 05/09/2023 12:56 PM CDT Hospital Encounter Department of Radiation Oncology in [address] [phone] Marnie Schultz APRN, C.N.P., D.N.P. Geraldine Chang, R.N. 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 05/08/2023 Orders Only Department of Neurology in [place], [place] [address] [place] [address] Mohinder Ariza M.D. 05/08/2023 Documentation Department of Neurology in [place], [place] [address] [place] [address] Mohinder Ariza M.D. 05/08/2023 Clinical Communication Department of Neurology in [place], [place] [address] [place] [address] Mohinder Ariza M.D. 05/08/2023 9:00 AM CDT - 05/08/2023 3:06 PM CDT Hospital Encounter Department of Radiation Oncology in [address] [address] Angel Luis Esquivel M.D. Secondary Malignant Neoplasm Brain (HCC) 05/08/2023 8:05 AM CDT - 05/08/2023 8:59 AM CDT Hospital Encounter Department of Radiation Oncology in [address] [address] Radha Patterson M.D. Discharge Disposition: Home or Self Care 05/07/2023 11:53 AM CDT - 05/07/2023 4:36 PM CDT Hospital Encounter Department of Radiation Oncology in [address] [address] Radha Patterson M.D. Secondary Malignant Neoplasm Brain (HCC) 05/07/2023 11:53 AM CDT - 05/07/2023 11:59 PM CDT Hospital Encounter Department of Radiation Oncology in [address] [address] Radha Patterson M.D. Discharge Disposition: Home or Self Care from Last 3 Months Allergies No known [...] times a day. 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 Respiratory Rate - - Oxygen Saturation - - Inhaled Oxygen Concentration - - Weight 69.2 kg (152 lb 8.9 oz) 06/20/2023 9:46 A M CDT Height 171 cm (5' 7.32) 06/20/2023 9:46 AM CDT Body Mass Index 23.67 06/20/2023 9:46 AM CDT Plan of Treatment Not on file Medical Devices Implanted Type Area [employer]estock Br[employer] Inspector Device Identifier Shelf Expiration Date Model [...] Provider Not In System IMG NM PROCEDURES Performing Organization Address [facility] de Phone Number IIMS NA * EEG routine - awake [...] Heaton M.D. NEUROLOGY ORDERABLES Performing Organization Address [facility] de Phone Number MMODAL NA * MR head/brain wo/w con-Outside MR Neuro (05/28/2023 7:25 AM CDT) Narrative [facility] - 05/28/2023 2:54 PM CDT This order [...] IMG MRI PROCEDURE S Performing Organization Address [facility] Co de Phone Number IIMS NA * CT HEAD/BRAIN WO CON-Outside CT Neuro (05/20/2023 3:35 PM CDT) 05/20/2023 3:32 PM CDT Narrative [facility] - 05/20/2023 4:00 PM CDT This order [...] System IMG CT PROCEDURES Performing Organization Address [facility] Co de Phone Number IIKS NA * Aria Course Complete Treatment Information (05/08/2023 8:51 AM CDT) Course ID [id number] sSRT BRUNO ARIA Course Start Date 4 12:50 CDT BRUNO ARIA Course End Date 4 15:24 CDT BRUNO ARIA First Treatment Date 4 16:26 CDT BRUNO ARIA Last Treatment Date 4 08:51 CDT BRUNO ARIA Treatment Elapsed Days 2 BRUNO ARIA Reference Point [id number] BRUNO ARIA Dosage Given to Date cGy 2700 BRUNO ARIA Plan ID [id number] BRUNO ARIA Fractions Treated to Date 3 BRUNO ARIA Planned Total Fractions 3 BRUNO ARIA Prescribed Dose Per Fraction 900 BRUNO ARIA Prescription Dose in cGy 2700 BRUNO ARIA Plan Primary Reference Point [id number] BRUNO ARIA 05/08/2023 8:51 AM CDT Provider Not In System RADIATION ONCOLOG Y ORDERABLES DAMION GOLDSTEIN na * Aria Daily Treatment Information (05/08/2023 8:51 AM CDT) Only the most recent of2 resultswithin the time period is included. Course ID [id number] sSRT BRUNO ARIA Course Start Date 4 12:50 CDT BRUNO ARIA First Treatment Date 4 16:26 CDT BRUNO ARIA Last Treatment Date 4 08:51 CDT BRUNO ARIA Treatment Elapsed Days 2 BRUNO ARIA Reference Point [id number] BRUNO ARIA Dosage Given to Date cGy 2700 BRUNO ARIA Session Dosage Given 900 BRUNO ARIA Plan ID [id number] BRUNO ARIA Fractions Treated to Date 3 BRUNO ARIA Planned Total Fractions 3 BRUNO ARIA Prescribed Dose Per Fraction 900 BRUNO ARIA Prescription Dose in cGy 2700 BRUNO ARIA Plan Primary Reference Point [id number] BRUNO ARIA 05/08/2023 8:51 AM CDT Provider Not In System RADIATION ONCOLOG Y ORDERABLES Performing Organization Address [facility] Co de Phone Number DAMION GOLDSTEIN na from Last 3 Months
--- OUTSIDE RECORDS SUMMARY | 2023-08-07 07:01 | XMS_ITS | Encounter Summary ---
Author Organization [facility] Address [address] [place] [address] Care Team Providers Care Peace Officer Name Role Phone Unavailable Primary Care Provider Unavailabl e Reason for Visit * Reason Onset Date Comments Communication 06/16/2023 ? Seizure Encounter Details Date Type Department Care Team (Latest Contact Info) Description 06/16/2023 Clinical Communication Department of Neurology in [place], [place] [address] [place] [phone] Mohinder Ariza M.D. [address] [place] [phone] Communication (? Seizure) Social History Tobacco Use Types Packs/Day Years Used Date Smoking Tobacco: Every Day Cigarettes Smokeless Tobacco: Never Alcohol Use Standard Drinks/Week Comments Not Currently 0 (1 standard drink = 0.6 oz pur e alcohol) [facility] Utilities Answer Date Recorded In the past 12 months has [facility] [employer], gas, oil, or water [employer] threatened to shut off services in your [...] your living situation today? I have a [facility] place to live 05/07/2023 Sex and Gender Information Value Date Recorded Sex Assigned at Female 05/07/2023 9:41 AM CDT Gender Identity Female 05/07/2023 9:41 AM CDT Sexual Orientation Straight 05/07/2023 9: 41 AM CDT documented as of this encounter Miscellaneous Notes * Telephone Encounter - Leidy Reardon R.N. - 06/16/2023 1:58 PM CDT SUBJECTIVE CHIEF COMPLAINT / REASON FOR CALL Communication (? Seizure) Information Discussed I returned a call to Mrs. Manjarrez to inquire about the reported seizures. On Friday morning, Mrs. Manjarrez reported an episode that began with body shaking and she tried tograb onto something and ended up losing consciousness, falling and blacking out. The episode was unwitnessed. Mrs. Manjarrez does not believe that she it her head. She feels as though she became alert immediately after falling. Mrs. Manjarrez went on with her day without further symptoms. On Friday, Mrs. Manjarrez experienced a brief episode of bilateral leg shaking that lasted a few seconds. She was standing at the time and did not lose consciousness. On Friday morning she has a repeat of the Friday episode. Mrs. Manjarrez is currently taking Keppra 1750 mg twice a day and Dexamethazone 2 mg daily. She has not missed any doses of her medication. She denies alcohol consumption, dehydration, and acute illness. Mrs. Manjarrez is scheduled for an EEG on and Epilepsy Consult on Monday 06/19. She will also be seeing Dr. Ariza on 07/08. Mrs. Manjarrez is wondering if any changes should be made prior to the upcoming appointments. I let her know that I will be reaching out to Dr. Ariza for input and will give her a call back with his response. Addendum: I returned a call to Mrs. Manjarrez and on behalf of Dr. Ariza, I advised her to start taking Keppra 2000 mg twice a day. This would be 20 mL as she is taking the liquid form of Keppra. She is tolerating Keppra without issues. Mrs. Manjarrez will begin this dose tonight. She will contact us if problems arise. PLAN Disposition/Recommendation: recommended immediate action: call 911 or see medical care if loss of consciousness episodes become more frequent. Information/Education: patient/caller able to teach back Caller agreeable to plan of care: yes The following references were used: nursing clinical judgement documented in this encounter Plan of Treatment Not on file documented as of this encounter Visit Diagnoses Not on filedocumented in this encounter
--- OUTSIDE RECORDS SUMMARY | 2023-08-07 07:01 | XMS_ITS | Encounter Summary ---
Author Organization [facility] Address [address] [place] [address] Care Team Providers Care Motion Picture Cameraman Name Role Phone Unavailable Primary Care Provider Unavailabl e Reason for Referral * Outpatient (Routine) - Closed Specialty Diagnoses / Procedures Referred By Contac t Referred To Contact Diagnoses Secondary Malignant Neoplasm Brain (HCC) Seizure (HCC) Procedures EEG routine - awake and sleep Darion Heaton M.D. 200 [place] [address] [facility] Referral ID Status Reason Start Date Expiration Date Visits Re quested Visits Authorized [id number] Closed 05/23/2023 05/22/2024 1 1 * Outpatient (Routine) - Closed Specialty Diagnoses / Procedures Referred By Randy christiansen Referred To Contact Neurology Diagnoses Secondary Malignant Neoplasm Brain (HCC) Seizure (HCC) Darion Heaton M.D. 200 [place] [address] [facility] Referral ID Status Reason Start Date Expiration Date Visits Re quested Visits Authorized [id number] Closed 05/23/2023 11/21/2024 1 1 Encounter Details Date Type Department Care Team (Late st Contact Info) Description 05/23/2023 Orders Only Department of Neurology in [place], [place] [address] [place] [phone] Darion Heaton M.D. 200 [place] [address] Secondary Malignant Neoplasm Brain (HCC) (Primary Dx); Seizure (HCC) Social History Tobacco Use Types Packs/Day Years Used Date Smoking Tobacco: Every Day Cigarettes Smokeless Tobacco: Never Alcohol Use Standard Drinks/Week Comments Not Currently 0 (1 standard drink = 0.6 oz pur e alcohol) [facility] Utilities Answer Date Recorded In the past 12 months has e [employer], gas, oil, or water [employer] threatened to shut off services in your [...] your living situation today? I have a [facility] place to live 05/07/2023 Sex and Gender Information Value Date Recorded Sex Assigned at Female 05/07/2023 9:41 AM CDT Gender Identity Female 05/07/2023 9:41 AM CDT Sexual Orientation Straight 05/07/2023 9: 41 AM CDT documented as of this encounter Plan of Treatment Scheduled Referrals Name Type Priority Associated Diagnoses Orde r Schedule Neurology - Epilepsy consult (clinic) Outpatient Referral Routine Secondary Malignant Neoplasm Brain (HCC) Seizure (HCC) Expected: 05/23/2023 (Approximate), Expires: 08/21/2024 documented as of this encounter Results * EEG routine - awake and sleep [...] of 66/min. Darion Heaton M.D. NEUROLOGY ORDERABLES MMODAL NA documented in this encounter Visit Diagnoses Diagnosis Secondary Malignant Neoplasm Brain (HCC)- Primary Seizure (HCC) Secondary Malignant Neoplasm Brain (HCC) Seizure (HCC) documented in this encounter
--- OUTSIDE RECORDS SUMMARY | 2023-08-07 07:01 | XMS_ITS ---
Author Organization [facility] Address [address] [place] [address] Care Team Providers Care Pigs Feet Finisher Name Role Phone Unavailable Primary Care Provider Unavailabl e Active Problems Problem Noted Date Diagnosed Date Secondary Malignant Neoplasm Brain 06/20/2022 Malignant Neoplasm Of Lung Small Cell Right 05/2022 Current Oncology Plans No current plan information found. Past Plans No past plan information found. Radiation Treatments * Plan Last Treated On Elapsed Days Fractions Treated Prescribed Fraction Dose Prescribed Total Dose [id number] 05/08/2023 2 3 of 3 900 cGy 2,700 cGy [id number] 02/03/2023 13 10 of 10 300 cGy 3,000 cG y [id number] 01/27/2023 6 5 of 5 400 cGy 2,000 cG y [id number] 07/02/2022 11 10 of 10 300 cGy 3,000 cGy Reference Point Last Treated On Elapsed Days Session Dose Total Dose [id number] 05/08/2023 2 900 cGy 2,700 cGy [id number] 02/03/2023 13 300 cGy 3,000 cG y [id number] 01/27/2023 6 400 cGy 2,000 cGy [id number] 07/02/2022 11 300 cGy 3,000 cGy
--- OUTSIDE RECORDS SUMMARY | 2023-08-07 07:01 | XMS_ITS | Encounter Summary ---
Author Organization [facility] Address [address] [place] [address] Care Team Providers Care Observer Electrical Prospecting Name Role Phone Unavailable Primary Care Provider Unavailabl e Reason for Visit * Reason Onset Date Comments Update on Seizure/Episodes 05/20/2023 Encounter Details Date Type Department Care Team (Latest Contact Info) Description 05/20/2023 Clinical Communication Department of Neurology in [place], [place] [address] [place] [phone] Lucy Bueno, RDanielN. [address] [place] [phone] Update on Seizure/Episodes Social History Tobacco Use Types Packs/Day Years Used Date Smoking Tobacco: Every Day Cigarettes Smokeless Tobacco: Never Alcohol Use Standard Drinks/Week Comments Not Currently 0 (1 standard drink = 0.6 oz pur e alcohol) [facility] Utilities Answer Date Recorded In the past 12 months has [facility] electric, gas, oil, or water company [...] your living situation today? I have a [facility] place to live 05/07/2023 Sex and [...] MRI brain on 05/27 and PET on 4/11. I will forward all of this information [...] 05/27 and PET on 05/28 both in [place]. She has a video visitwith Dr. Ariza on 05/29. She has another appointment for wax removal from ear with local ENT on 05/28. I did review with Dr. Heaton in Dr. Ariza's absence. He agreed with the plan to have CT without contrast locally and have the images electronically pushed to us and the report faxed to [phone] Ariza. The EEG results should be faxed to us as well. No change in medication at this time. I will have Dr. Ariza's medical engineer watch for the results and then review [...]
--- OUTSIDE RECORDS SUMMARY | 2023-08-07 07:01 | XMS_ITS ---
Author Organization [facility] Address [address] [place] [address] Care Team Providers Care Operations Lieutenant Name Role Phone Unavailable Unavailable Unavailable Surgery Details Not on file Complications Check Surgery Details section. Procedure Estimated Blood Loss Check Surgery Details section. Procedure Findings Check Surgery Details section. Procedure Specimens Taken Check Surgery Details section.
--- OUTSIDE RECORDS SUMMARY | 2023-08-07 07:01 | XMS_ITS | Encounter Summary ---
Author Organization [facility] Address [address] [place] [address] Care Team Providers Care Ent Nurse Name Role Phone Unavailable Primary Care Provider Unavailabl e Reason for Visit * Reason Onset Date Comments Discuss medications 06/23/2023 Encounter Details Date Type Department Care Team (Latest Contact Info) Description 06/23/2023 Clinical Communication Department of Neurology in [place], [place] [address] [place] [phone] Mohinder Ariza M.D. [address] [place] [address] Discuss medications Social History Tobacco Use Types Packs/Day Years Used Date Smoking Tobacco: Every Day Cigarettes Smokeless Tobacco: Never Alcohol Use Standard Drinks/Week Comments Not Currently 0 (1 standard drink = 0.6 oz pur e alcohol) [facility] Utilities Answer Date Recorded In the past 12 months has e [employer], gas, oil, or water [employer] threatened to shut off services in your [...] living situation today? I have a [facility] place to live 05/07/2023 Sex and Gender Information Value Date Recorded Sex Assigned at Female 05/07/2023 9:41 AM CDT Gender Identity Female 05/07/2023 9:41 AM CDT Sexual Orientation Straight 05/07/2023 9: 41 AM CDT documented as of this encounter Miscellaneous Notes * Telephone Encounter - Leidy Reardon R.N. - 06/23/2023 11:41 AM CDT SUBJECTIVE CHIEF COMPLAINT / REASON FOR CALL Discuss medications Information Discussed I returned a phone call to Ms. Manjarrez's spouse, Altaf, to gather his questions about Keppra and dexamethasone. Ms. Manjarrez met with the epilepsy team on 06/19 and the plan is to obtain basic labs, levetiracetam trough level, and EKG (to document the baseline PA interval before using lacosamide). Following this, Dr. Senior discussed with the patient and her a gradual increase in the morning dose of levetiracetam: 2500 mg in the morning and 2000 mg at night x 3 days, followed by 3000 mg in the morning and 2000 mg at night. Lacosamide could be added in the future if seizures persist. Altaf is wondering if any changes should be made to the steroid taper. Ms. Manjarrez is currently taking dexamethasone 1 mg daily (beginning today) and then scheduled to drop to 0.5 mg daily on 06/29, per previous communication sent by Dr. Ariza. Altaf is hoping to get the EKG and labs completed in the near future. He is reaching out to patient's primary care provider with this request and will contact us if he has difficulty. Ms. Manjarrez was scheduled for chemotherapy today, however, the treatment has been delayed for approximately one week as patient works though medication changes. PLAN Disposition/Recommendation: self-care , appropriate at this time, patient encouraged to call back with questions Information/Education: patient/caller able to teach back Caller agreeable to plan of care: yes The following references were used: nursing clinical judgement documented in this encounter Plan of Treatment Not on file documented as of this encounter Visit Diagnoses Not on filedocumented in this encounter
--- OUTSIDE RECORDS SUMMARY | 2023-08-07 07:01 | XMS_ITS | Encounter Summary ---
Author Organization [facility] Address [address] [place] [phone] Care Team Providers Care Hair Sample Matcher Name Role Phone Unavailable Primary Care Provider Unavailabl e Reason for Referral * Outpatient (Routine) - Closed Specialty Diagnoses / Procedures Referred By Randy christiansen Referred To Contact Neurology Mohinder Ariza M.D. [address] [place] [phone] [facility] Referral ID Status Reason Start Date Expiration Date Visits Re quested Visits Authorized [id number] Closed 05/08/2023 11/06/2024 1 1 Scheduling Instructions Please add on for me at 8 AM. Encounter Details Date Type Department Care Team (Late st Contact Info) Description 05/08/2023 Orders Only Department of Neurology in [place], [place] [address] [place] [phone] Mohinder Ariza M.D. [address] [place] [phone] Social History Tobacco Use Types Packs/Day Years Used Date Smoking Tobacco: Every Day Cigarettes Smokeless Tobacco: Never Alcohol Use Standard Drinks/Week Comments Not Currently 0 (1 standard drink = 0.6 oz pur e alcohol) [facility] Utilities Answer Date Recorded In the [...] your living situation today? I have a [facility] place to live 05/07/2023 Sex [...]
--- OUTSIDE RECORDS SUMMARY | 2023-08-07 07:01 | XMS_ITS | Encounter Summary ---
Author Organization [facility] Address [address] [place] [id number] Care Team Providers Care Professional Nurse Name Role Phone Unavailable Primary Care Provider Unavailabl e Reason for Referral * Outpatient (Routine) - Authorized Specialty Diagnoses / Procedures Referred By Randy christiansen Referred To Contact Diagnoses Secondary Malignant Neoplasm Brain (HCC) Seizure (HCC) Procedures ECG 12 Lead Ej Senior M.B.B.S. [address] [place] [phone] [facility] Referral ID Status Reason Start Date Expiration Date V isits Requested Visits Authorized [id number] Authorized 06/20/2023 06/19/2024 1 1 Reason for Visit * Outpatient (Routine) - Closed Specialty Diagnoses / Procedures Referred By Randy christiansen Referred To Contact Neurology Diagnoses Secondary Malignant Neoplasm Brain (HCC) Seizure (HCC) Darion Heaton M.D. [address] [place] [phone] [facility] Referral ID Status Reason Start Date Expiration Date Visits Re quested Visits Authorized [id number] Closed 05/23/2023 11/21/2024 1 1 Encounter Details Date Type Department Care Team (Latest Contact Info) Description 06/20/2023 10:00 AM CDT Comprehensive Visit Department of Neurology in [place], [place] [address] [place] [phone] Ej Senior M.B.B.S. 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 I have a [facility] place to live 05/07/2023 Sex and Gender Information Value Date Recorded Sex Assigned at Female 05/07/2023 9:41 AM CDT Gender Identity Female 05/07/2023 9:41 AM CDT Sexual Orientation Straight 05/07/2023 9: 41 AM CDT documented as of this encounter Last Filed Vital Signs Vital Sign Reading Time Taken Comments Blood Pressure - - Pulse - - Temperature - - Respiratory Rate - - Oxygen Saturation - - Inhaled Oxygen Concentration - - Weight 69.2 kg (152 lb 8.9 oz) 06/20/2023 9:46 A M CDT Height 171 cm (5' 7.32) 06/20/2023 9:46 AM CDT Body Mass Index 23.67 06/20/2023 9:46 AM CDT documented in this encounter Consult Notes * Edgardo Mccord M.D. - 06/20/2023 10:00 AM CDT SUBJECTIVE REFERRING PROVIDER Darion Heaton M.D. CHIEF COMPLAINT / REASON FOR VISIT Belkis Manjarrez is a 57 y.o. female who presents for evaluation of seizure activity. I personally met with this delightful patient and her in the Division of Epilepsy at [facility] on June 20, 2023. Patient was kindly referred for an epilepsy subspecialty consultation by colleagues in neuro-oncology. HISTORY OF PRESENT ILLNESS I have reviewed the history and physical examination findings of Dr. Senior , and have personally seen and examined the patient. I agree with their documentation other than where indicated in my note. Epilepsy Pre-Visit Question Set (Submitted on 06/16/2023) Who is filling out this form?: patient How many types of seizures do you have?: 1 What seizure types do you have?: unknown Describe what happens during your seizures.: I black out and fall belkis Did you have any of the following conditions before the onset of your seizures?: brain tumor How old were you when you started having seizures? (in years): This year Do you get a warning before you have a seizure?: sometimes experiences Which warnings do you get before you have a seizure?: fear/anxiety, funny feeling that is hard to describe Do you black out or become confused during the seizure?: typically experiences How long do your seizures last?: a few seconds On average, how often do you have your most common type of seizure at this time?: daily In the past 6 months, what is the longest period of time that you have gone without having a seizure?: 1 month What injuries have you experienced during a seizure?: other Please specify other injuries.: Rib Have you been in a motor vehicle accident associated with a seizure?: has not occurred Do you have the following symptoms in addition to seizures?: anxiety, confusion Have your seizures been evaluated at another center?: has not occurred Have you undergone any of the following testing?: none What other treatments have you tried for epilepsy?: other Please specify other treatments.: None What are your goals for this appointment?: determine whether current treatment is appropriate, identify the cause of the patient's epilepsy Current Outpatient Medications Medication Instructions acetaminophen (TYLENOL) 500 mg tablet Twice A Day as needed Advair Diskus 250-50 mcg/act diskus inhaler 1 puff, inhalation, 2 times daily amLODIPine (NORVASC) 5 mg, oral, Daily atorvastatin (LIPITOR) 20 mg tablet 20 MG ORALLY EVERY DAY AT BEDTIME busPIRone (BUSPAR) 10 mg tablet 1 tablet, oral, 3 times daily with meals dexAMETHasone (DECADRON) 2 mg tablet Starting 06/02/2023, take 4 mg in the morning and 2 mg in the afternoon. Then starting 06/09/2023 decrease to 4 mg in the morning. 06/16/2023 decrease to 2 mg in themorning. ibuprofen (ADVIL,MOTRIN) 200 mg, oral, 4 times daily PRN levETIRAcetam (KEPPRA) 1,750 mg, oral, 2 times daily levothyroxine (SYNTHROID, LEVOTHROID) 100 mcg, oral, Daily omeprazole (PRILOSEC) 20 mg, oral, Daily before breakfast oxyCODONE (ROXICODONE) 5 mg immediate release tablet TAKE 1 - 2 TABLET BY ORAL ROUTE THREE TIMES DAILY NEEDED, MAX 3/DAY prochlorperazine (COMPAZINE) 10 mg, rectal, Every 12 hours PRN EEG Clinical interpretation 06/19/2023: During wakefulness and drowsiness the EEG shows occasional generalized (maximal posterior regions) background slowing that indicates mild generalized cerebral dysfunction of nonspecific etiology. During sleep the EEG shows no abnormalities. No potentially epileptogenic activity is present. Classification: Special study - Short-term video EEG recording. Dysrhythmia grade 1 generalized (maximal posterior regions). Drowsiness and sleep - no activation of epileptiform discharges. EKG channel. The following portions of the patient's history were reviewed and updated as appropriate: allergies, current medications, family history, medical history, social history, surgical history, and problem list. OBJECTIVE Height 171 cm, weight 69.2 kg. PHYSICAL EXAM I agree with the exam findings as documented by Dr. Senior . ASSESSMENT / PLAN #1 Secondary Malignant Neoplasm Brain (HCC) #2 Seizure (HCC) I counseled the patient and her that I would recommend a diagnostic evaluation for her seizure disorder. We will obtain a trough levetiracetam level as well as selected chemistry and hematology studies. We will also do an EKG study as the patient may require Vimpat or lacosamide therapy. Itwill be important to document the MO interval prior to using this antiseizure medication. My colleague will discuss a gradual increase in the dose of Keppra as needed and tolerated. The patient appears to be tolerating the current dose of Keppra well. Unfortunately there has been a recentincrease in seizure tendency. The patient should also be given a rescue medication in the event that she has a prolonged seizure lasting 2 minutes or longer in duration or has a cluster of 3 or more seizures in 24 hours. I shared my thoughts and findings with the patient and her . We will review the diagnostic studies and contact the patient with the test results. The patient was given my professional businesscard. I encouraged her to use the patient portal to contact my office with any questions or concerns. Assessment and plan per Dr. Senior . Patient Education: Ready to learn, no apparent learning barriers were identified; learning preferences include listening. Explained diagnosis and treatment plan; patient expressed understanding of the content. * Ej Senior M.B.B.S. - 06/20/2023 10:00 AM CDT Darion Heaton M.D. [address] [place] [phone] SUBJECTIVE CHIEF COMPLAINT / REASON FOR VISIT Belkis Manjarrez is a 57 y.o. right-handed female who presents to Epilepsy Clinic to get a second opinion about a diagnosis of epilepsy and get a second opinion regarding epilepsy treatment HISTORY OF PRESENT ILLNESS History information was obtained from the patient, spouse, and medical records. Answers submitted by the patient for this visit: Epilepsy Pre-Visit Question Set (Submitted on 06/16/2023) Who is filling out this form?: patient How many types of seizures do you have?: 1 What seizure types do you have?: unknown Describe what happens during your seizures.: I black out and fall belkis Did you have any of the following conditions before the onset of your seizures?: brain tumor How old were you when you started having seizures? (in years): This year Do you get a warning before you have a seizure?: sometimes experiences Which warnings do you get before you have a seizure?: fear/anxiety, funny feeling that is hard to describe Do you black out or become confused during the seizure?: typically experiences How long do your seizures last?: a few seconds On average, how often do you have your most common type of seizure at this time?: daily In the past 6 months, what is the longest period of time that you have gone without having a seizure?: 1 month What injuries have you experienced during a seizure?: other Please specify other injuries.: Rib Have you been in a motor vehicle accident associated with a seizure?: has not occurred Do you have the following symptoms in addition to seizures?: anxiety, confusion Have your seizures been evaluated at another center?: has not occurred Have you undergone any of the following testing?: none What other treatments have you tried for epilepsy?: other Please specify other treatments.: None What are your goals for this appointment?: determine whether current treatment is appropriate, identify the cause of the patient's epilepsy Narrative neurological and seizure history: In April 2022, the patient developed right-sided neck pain, right-hand paresthesia, and mild weakness. Initially, there was suspicion of cervical spinal stenosis contributing to these symptoms. Later, she also developed some respiratory symptoms, and the additional workup demonstrated multifocal brain lesions as well as a right hilum mass. MRI brain showed supratentorial and infratentorial enhancing lesions consistent with brain metastases; the most dominant ones were within the left postcentral gyrus and left occipital head regions with perilesional edema. Bronchoscopy and subsequent biopsy identified SCLC, and the patient received WBRT for intracranial metastatic disease at [place], [place], in June 2022. She saw Dr. Ariza in the Neuro-oncology clinic at the same time; there was concern about focal motor seizures affecting the right side, so she was started on levetiracetam 500 mg twice daily. After WBRT, she was started on chemotherapy: Carboplatin and etoposide x 4 cycles and atezolizumab was added with cycle 2. A repeat MRI of the brain demonstrated a significant interval decrease in the size of intracranial metastases; she was maintained on immunotherapy. The patient noticed frequent seizures in April 2023; she would develop rhythmic shaking of bilateral lower extremities, which often began on the right and then spread to the left. The episodes lastedfor a few seconds but were severe in intensity, and she would hold on to something to prevent a fall. They tend to occur in the morning and are more noticeable in standing, and the patient has preserved awareness during them. However, she would develop bilateral arm shakiness and loss of awareness,followed by falls in a few instances. Her has witnessed these episodes and reported that her eyes would be opened, but she is unresponsive. Dr. Ariza advised increasing the dose of levetiracetam initially to 750 mg twice daily and then 1000 mg twice daily for better control of epilepsy. Repeat MRI showed multifocal enhancement consistent with progressive intracranial disease. Her radiation oncologist decided to proceed with additional WBRT to achieve better control of intracranial disease. While undergoing radiation therapy, she continued to experience seizures; Dr. Ariza increased the dose of levetiracetam to 1750 mg twice daily. Additionally, the dose of dexamethasone was also adjusted. The patient completed radiation therapy and reported an improvement in the frequency of seizures. Post-RT brain MRI also demonstrated decreased enhancement and cerebral edema. Per the patient, she had no seizures for almost three weeks post-RT; however, the seizure recurred last week, and she had one brief seizure earlier today before the clinic appointment. She usually does not get any aura or warning before them. The seizures are stereotypical, with the majority lasting 10-20 seconds, and she does not lose awareness with them. But there were instances where she mentioned passing out and falling to the ground; based on the collateral information from her , itappears that she would lose awareness and fall with her eyes open but not responsive for a few seconds. He never witnessed staring spells or generalized convulsive activity. The patient currently takes levetiracetam 2000 mg twice daily and denies any side effects related to its use. She is also on a tapering dose of dexamethasone. Her is unsure if the timing of the decrease in the dose of dexamethasone last week has any direct association/correlation with the re- emergence of seizures. Seizure Synopsis Onset: April 2022 Epilepsy Type: Focal Etiology: Structural Semiology: She experiences seizures of a single semiology Type #1 - Develops rhythmic shaking of bilateral lower extremities, which often began on the right and thenspread to the left. - Lasting 10-20 seconds, usually has preserved awareness, - A few times the jerking spread to the bilateral arms, she would lose awareness and fall - Tend to occur in the morning and more noticeable in the standing position Work-up: - Routine EEG 06/19/23 Clinical interpretation; During wakefulness and drowsiness the EEG shows occasional generalized (maximal posterior regions) background slowing that indicates mild generalized cerebral dysfunction of nonspecific etiology. During sleep the EEG shows no abnormalities. No potentially epileptogenic activity is present. - MRI Brain 04/29/2023 Impression: Bilateral hemispheric supratentorial and infratentorial enhancing masses consistent with metastases - MRI Brain 05/28/2023 Impression: Interval improvement in the intracranial metastatic disease with no new lesions Treatment History: Current antiseizure medications Levetiracetam 2000 mg twice daily Problems associated with the patient's current medications include: None. Previous antiseizure medications None Is the patient aware of driving and other safety concerns related to epilepsy: Yes If the patient is female and of child-bearing age, is she aware how epilepsy medications may affectcontraceptive use and ?: Not applicable Current Outpatient Medications: acetaminophen (TYLENOL) 500 mg tablet, Twice A Day as needed, Disp: , Rfl: Advair Diskus 250-50 mcg/act diskus inhaler, Inhale 1 puff 2 (two) times a day., Disp: , Rfl: amLODIPine (NORVASC) 5 mg tablet, Take 5 mg by mouth daily., Disp: , Rfl: atorvastatin (LIPITOR) 20 mg tablet, 20 MG ORALLY EVERY DAY AT BEDTIME, Disp: , Rfl: busPIRone (BUSPAR) 10 mg tablet, Take 1 tablet by mouth 3 (three) times a day with meals., Disp: , Rfl: dexAMETHasone (DECADRON) 2 mg tablet, Starting 06/02/2023, take 4 mg in the morning and 2 mg in the afternoon. Then starting 06/09/2023 decrease to 4 mg in the morning. 06/16/2023 decrease to 2 mg in the morning., Disp: 42 tablet, Rfl: 0 ibuprofen (ADVIL,MOTRIN) 200 mg tablet, Take 200 mg by mouth 4 (four) times a day as needed., Disp:, Rfl: levETIRAcetam (KEPPRA) 100 mg/mL solution, Take 17.5 mL (1,750 mg total) by mouth 2 (two) times a day., Disp: 1050 mL, Rfl: 3 levothyroxine (SYNTHROID, LEVOTHROID) 100 mcg tablet, Take 100 mcg by mouth daily., Disp: , Rfl: omeprazole (PriLOSEC) [address] capsule, Take 1 capsule (20 mg total) by mouth every morning before breakfast., Disp: 30 capsule, Rfl: 1 oxyCODONE (ROXICODONE) 5 mg immediate release tablet, TAKE 1 - 2 TABLET BY ORAL ROUTE THREE TIMES DAILY NEEDED, MAX 3/DAY, Disp: , Rfl: prochlorperazine (COMPAZINE) 25 mg suppository, Insert 10 mg into the rectum every 12 (twelve) hours as needed for nausea or vomiting., Disp: , Rfl: The following portions of the patient's history were reviewed and updated as appropriate: allergies, current medications, family history, medical history, social history, surgical history, and problem list. REVIEW OF SYSTEMS REVIEW OF SYSTEMS OBJECTIVE Height 171 cm, weight 69.2 kg. PHYSICAL EXAM Neuro: alert and oriented to person, place and time. Speech is without dysarthria or aphasia. Emotionally labile and tearful at times. Cranial nerves: PERRLA, EOMI, facial sensation intact, facial symmetry,. Motor strength is full. Gait is normal. There is no ataxia or dysmetria on [id number]. 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 Belkis Manjarrez is a 57-year-old right-handed female who presents to the Epilepsy Clinic with her . 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 Over the past year, she has been maintained on levetiracetam 500 mg twice dailyfor seizures affecting the right side, which was effective. However, the seizure recurred in April 2023 in the setting of progressive intracranial disease and radiation therapy, and the dose of levetiracetam was titrated for better control of seizures. The seizures subsided following an increment in the dose of levetiracetam and post-WBRT; however, they recur again recently. The description and symptomatology suggest focal motor seizures with and without impaired awareness, likely emanating from the left post-central/antoine-rolandic region in the setting of intracranial metastatic disease. The patient would benefit from adjustment in the antiseizure regimen. Currently, she takes levetiracetam 2000 mg twice daily and is tolerating it well. The patient also receives chemotherapy every month. Due to the minimal interaction between levetiracetam and chemotherapeutic agents, it would be reasonable to increase the dose of levetiracetam first rather than add a second antiseizure medication. As seizures tend to occur in the morning, we discussed with the patient and her a gradual increase in the morning dose of levetiracetam: 2500mg in the morning and 2000 mg at night x 3 days, followed by 3000 mg in the morning and 2000 mg at night. We advised the patient and her to provide us an update about seizure frequency in 2-3 weeks; if seizures persist despite an increment in the dose of levetiracetam, we will consider adding lacosamide. We will obtain basic labs, levetiracetam trough level, and EKG (to document the baseline MO interval before using lacosamide). I have provided the patient with orders; she will get them locally and send us the results. We also discussed that the patient should also be given rescue medication if she has a prolonged seizure lasting 2 minutes or longer in duration or has a cluster of 3 or more seizures in 24 hours. TIME: [id number] time was 60 minutes with greater than 50% spent in counseling. 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
--- OUTSIDE RECORDS SUMMARY | 2023-08-07 07:01 | XMS_ITS | Encounter Summary ---
Author Organization [facility] Address [address] [place] [id number] Care Team Providers Care Worm Grower Name Role Phone Unavailable Primary Care Provider Unavailabl e Reason for Visit * Reason Comments Med Refill Encounter Details Date Type Department Care Team ([facility] st Contact Info) Description 07/28/2023 Refill Department of Neurology in [place], [place] [address] [place] [phone] Mohinder Ariza M.D. [address] [place] [phone] Med Refill Social History Tobacco Use Types Packs/Day Years Used Date Smoking Tobacco: Every Day Cigarettes Smokeless Tobacco: Never Alcohol Use Standard Drinks/Week Comments Not Currently 0 (1 standard drink = 0.6 oz pur e alcohol) [facility] Utilities Answer Date Recorded In the past [address] [facility] [employer], gas, oil, or water [facility] threatened to shut off services in your [...]
--- OUTSIDE RECORDS SUMMARY | 2023-08-07 07:01 | XMS_ITS | Encounter Summary ---
Author Organization [facility] Address [address] [place] [address] Care Team Providers Care Brazer Helper Induction Name Role Phone Unavailable Primary Care Provider Unavailabl e Encounter Details Date Type Department Care Team (Latest Contact Info) Description 07/07/2023 1:15 PM CDT Clinical Communication Virtual Review in [place], [place] [address] [place] [phone] Social History Tobacco Use Types Packs/Day Years Used Date Smoking Tobacco: Every Day Cigarettes Smokeless Tobacco: Never Alcohol Use Standard Drinks/Week Comments Not Currently 0 (1 standard drink = 0.6 oz pur e alcohol) [facility] Utilities Answer Date Recorded [...] Date Recorded Employment status Working with temporary [employer] tions 05/07/2023 Housing Stability Answer Date Recorded What is your living situation today? I have a [facility] place to live 05/07/2023 Sex [...]
--- OUTSIDE RECORDS SUMMARY | 2023-08-07 07:01 | XMS_ITS | Encounter Summary ---
Author Organization [facility] Address [address] [place] [address] Care Team Providers Care Advertising Assistant Manager Name Role Phone Unavailable Primary Care Provider Unavailabl e Reason for Referral * Outpatient (Routine) - Authorized Specialty Diagnoses / Procedures Referred By Randy t Referred To Contact Oncology Tita Driver M.D. [address] [place] [phone] [facility] Referral ID Status Reason Start Date Expiration Date V isits Requested Visits Authorized [id number] Authorized 08/04/2023 02/02/2025 1 1 Encounter Details Date Type Department Care Team (Late st Contact Info) Description 08/04/2023 Orders Only Department of Oncology in [place], [place] [address] [place] [phone] Tita Driver M.D. [address] [place] [phone] Social History Tobacco Use Types Packs/Day Years Used Date Smoking Tobacco: Every Day Cigarettes Smokeless Tobacco: Never Alcohol Use Standard Drinks/Week Comments Not Currently 0 (1 standard drink = 0.6 oz pur e alcohol) [facility] Utilities Answer Date Recorded [...] office visit (clinic) Outpatient Referral Routine Expected: 08/18/2023, Expires: 11/03/2024 documented as of this encounter Visit Diagnoses Not on filedocumented in this encounter
--- OUTSIDE RECORDS SUMMARY | 2023-08-07 07:01 | XMS_ITS | Encounter Summary ---
Author Organization [facility] Address [address] [place] [address] Care Team Providers Care Graphics Editor Name Role Phone Unavailable Primary Care Provider Unavailabl e Encounter Details Date Type Department Care Team ([facility] st Contact Info) Description 05/08/2023 Clinical Communication Department of Neurology in [place], [place] [address] [place] [phone] Mohinder Ariza M.D. [address] [place] [phone] Social History Tobacco Use Types Packs/Day Years Used Date Smoking Tobacco: Every Day Cigarettes Smokeless Tobacco: Never Alcohol Use Standard Drinks/Week Comments Not Currently 0 (1 standard drink = 0.6 oz pur e alcohol) [facility] Utilities Answer Date Recorded In the past [...] your living situation today? I have a [facility] place to live 05/07/2023 Sex and [...] her blood work done Monday 05/08 at [facility] and the records should be at the [facility]. We will call and request the labs. I did call the [facility] who stated they will not know until later this afternoon if they will have the Dexamethasone today. Patient asked me to call the [facility]. I will update her once we have found records and a pharmacy. She thanked me for the assistance. * Telephone Encounter - Karla Salas M.S.N., RGavin, Tori. - 05/08/2023 11:23 AM CDT SUBJECTIVE CHIEF [...] updated prescription for Keppra sent to her [facility] pharmacy. Patient's states that the went [...]
--- OUTSIDE RECORDS SUMMARY | 2023-08-07 07:01 | XMS_ITS | Encounter Summary ---
Author Organization [facility] Address [address] [place] [address] Care Team Providers Care Roofing Subcontractor Name Role Phone Unavailable Primary Care Provider Unavailabl e Encounter Details Date Type Department Care Team (Late st Contact Info) Description 05/22/2023 Orders Only Department of Neurology in [place], [place] [address] [place] [phone] Darion Heaton M.D. [address] [place] [address] Social History Tobacco Use Types Packs/Day Years Used Date Smoking Tobacco: Every Day Cigarettes Smokeless Tobacco: Never Alcohol Use Standard Drinks/Week Comments Not Currently 0 (1 standard drink = 0.6 oz pur e alcohol) [facility] Utilities Answer Date Recorded In [...] your living situation today? I have a [facility] place to live 05/07/2023 Sex and [...]
--- OUTSIDE RECORDS SUMMARY | 2023-08-07 07:01 | XMS_ITS | Encounter Summary ---
Author Organization [facility] Address [address] [place] [address] Care Team Providers Care Making Department Preparer Name Role Phone Unavailable Primary Care Provider Unavailabl e Encounter Details Date Type Department Care Team ([facility] st Contact Info) Description 05/08/2023 Documentation Department of Radiation Oncology in [place], [place] [address] [place] [phone] Radha Patterson M.D. [address] [place] [phone] Social History Tobacco Use Types Packs/Day Years Used Date Smoking Tobacco: Every Day Cigarettes Smokeless Tobacco: Never Alcohol Use Standard Drinks/Week Comments Not Currently 0 (1 standard drink = 0.6 oz pur e alcohol) [facility] Utilities Answer Date Recorded In the past 12 months has [employer], gas, oil, or water [employer] threatened to shut off services in your [...] (cGy) First Treatment Last Treatment Elapsed Days [id number] 05/06/2023 05/08/2023 2 Course [...] Belkis Gibson R.N., 05/22/2023 11:22 AM CDT [facility] [address] [place] [address] documented in this encounter Plan of Treatment Not on file documented as of this encounter Visit Diagnoses Diagnosis 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
--- OUTSIDE RECORDS SUMMARY | 2023-08-07 07:01 | XMS_ITS | Encounter Summary ---
Author Organization [facility] Address [address] [place] [address] Care Team Providers Care Mica Paster Name Role Phone Unavailable Primary Care Provider Unavailabl e Reason for Visit * Reason Comments Med Refill Encounter Details Date Type Department Care Team ([facility] st Contact Info) Description 05/12/2023 Refill Department of Neurology in [place], [place] [address] [place] [phone] Mohinder Ariza M.D. [address] [place] [phone] Med Refill Social History Tobacco Use Types Packs/Day Years Used Date Smoking Tobacco: Every Day Cigarettes Smokeless Tobacco: Never Alcohol Use Standard Drinks/Week Comments Not Currently 0 (1 standard drink = 0.6 oz pur e alcohol) [facility] Utilities Answer Date Recorded In the past 12 months has [facility] [employer], gas, oil, or water [employer] threatened to shut off services in your [...] living situation today? I have a [facility] place to live 05/07/2023 Sex and [...]
--- OUTSIDE RECORDS SUMMARY | 2023-08-07 07:01 | XMS_ITS | Encounter Summary ---
Author Organization [facility] Address [address] [place] [address] Care Team Providers Care Csr Retail Name Role Phone Unavailable Primary Care Provider Unavailabl e Reason for Referral * Outpatient (Routine) - Authorized Specialty Diagnoses / Procedures Referred By Contac t Referred To Contact Radiation Oncology Marnie Schultz APRN, C.N.P., D.N.P. [address] [place] [phone] [facility] Region Referral ID Status Reason Start Date Expiration Date V isits Requested Visits Authorized [id number] Authorized 05/08/2023 11/06/2024 10 10 Scheduling Instructions Phone visit on please Reason for Visit * Outpatient (Routine) - Authorized Specialty Diagnoses / Procedures Referred By Contac t Referred To Contact Radiation Oncology Marnie Schultz APRN, C.N.P., D.N.P. [address] [place] [phone] [facility] Region Referral ID Status Reason Start Date Expiration Date V isits Requested Visits Authorized [id number] Authorized 05/08/2023 11/06/2024 10 10 Encounter Details Date Type Department Care Team (Late st Contact Info) Description 05/09/2023 9:00 AM CDT - 05/09/2023 12:56 PM CDT Hospital Encounter Department of Radiation Oncology in [place], [place] [address] [place] [phone] Marnie Schultz APRN, C.N.P., D.N.P. [address] [place] [phone] Geraldine Chang R.N. 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 I have a [facility] place to live 05/07/2023 Sex and [...] needed Advair Diskus 250-50 mcg/act diskus inhaler Inhale 1 puff 2 (two) times a day. 12/13/2022 amLODIPine (NORVASC) 5 mg tablet Take 5 mg by mouth daily. 04/18/2022 atorvastatin (LIPITOR) 20 mg tablet 20 MG ORALLY EVERY DAY AT BEDTIME 05/12/2022 busPIRone (BUSPAR) 10 mg tablet Take 1 tablet by mouth 3 (three) times a day with meals. 04/24/2023 ibuprofen (ADVIL,MOTRIN) 200 mg tablet Take 200 mg by mouth 4 (four) times a day as needed. 08/11/2009 levothyroxine (SYNTHROID, LEVOTHROID) 100 mcg tablet Take 100 mcg by mouth daily. 04/18/2022 oxyCODONE (ROXICODONE) 5 mg immediate release tablet TAKE 1 - 2 TABLET BY ORAL ROUTE THREE TIMES DAILY NEEDED, MAX 3/DAY 12/14/2022 prochlorperazine (COMPAZINE) 25 mg suppository Insert 10 mg into the rectum every 12 (twelve) hours as needed for nausea or vomiting. dexAMETHasone (DECADRON) 2 mg tablet Take 1 tablet (2 mg total) by mouth 2 (two) times a day. 20 tablet 05/01/2023 05/31/2023 dexAMETHasone (DECADRON) 4 mg tablet Take 1 tablet (4 mg total) by mouth 2 (two) times a day. 60 tablet 05/08/2023 05/12/2023 levETIRAcetam (KEPPRA) 100 mg/mL solutionIndications:Seco ndary Malignant Neoplasm Brain (HCC) Take 15 mL (1,500 mg total) by mouth 2 (two) times a day. 1000 mL 10 05/08/2023 05/31/2023 lidocaine viscous (lidocaine) 2 % mucosal solution Apply 5 mL to the mouth or throat 4 (four) times a day. TAKE 5-10 ML BY MOUTH 4 TIMES A DAY AFTER MEALS AND BEDTIME. HOLD IN MOUTH FOR 1 MINUTE. DO NOT EAT OR DRINK FOR 15-30 MINUTES AFTER USE. 100 mL 1 02/27/2023 05/30/2023 memantine (NAMENDA) 10 mg tablet Take 1 tablet (10 mg total) by mouth as directed. Week 1: 5 mg (1/2 tablet) in AM; Week 2: 5 mg (1/2 tablet) in AM and 5 mg in PM; Week 3: 10mg in AM and 5 mg in PM; Week 4: 10mg in AM and 10 mg in PM 35 tablet 06/20/2022 05/30/2023 memantine (NAMENDA) 10 mg tablet Take 1 tablet (10 mg total) by mouth 2 (two) times a day. 60 tablet 10/07/2022 05/30/2023 documented as of this encounter Progress Notes [...] asking for refill to be sent to [facility] in [place]. PLAN I discussed with patient that Dr. [...] Dexamethasone yesterday to patient's preferred pharmacy in [place]. I provided patient with our after hours contact number. 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
--- OUTSIDE RECORDS SUMMARY | 2023-08-07 07:01 | XMS_ITS | Encounter Summary ---
Author Organization [facility] Address [address] [place] [address] Care Team Providers Care Tube Turner Name Role Phone Unavailable Primary Care Provider Unavailabl e Encounter Details Date Type Department Care Team (Latest Contact Info) Description 05/28/2023 9:00 AM CDT Clinical Communication Virtual Review in [place], [place] [address] [place] [phone] Social History Tobacco Use Types Packs/Day Years Used Date Smoking Tobacco: Every Day Cigarettes Smokeless Tobacco: Never Tobacco Cessation:Ready to Q uit: Not Asked; Counseling Given: Not Answered Alcohol Use Standard Drinks/Week Comments Not Currently 0 (1 standard drink = 0.6 oz pur e alcohol) [facility] Utilities Answer Date Recorded In the past [...] Date Recorded Employment status Working with temporary [employer] 05/07/2023 Housing Stability Answer Date Recorded What is your living situation today? I have a [facility] place to live 05/07/2023 Sex and Gender [...]
--- OUTSIDE RECORDS SUMMARY | 2023-08-07 07:01 | XMS_ITS | Encounter Summary ---
Author Organization [facility] Address [address] [place] [address] Care Team Providers Care Draw Fire Operator Name Role Phone Unavailable Primary Care Provider Unavailabl e Encounter Details Date Type Department Care Team ([facility] st Contact Info) Description 05/08/2023 Documentation Department of Neurology in [place], [place] [address] [place] [phone] Mohinder Ariza M.D. [address] [place] [phone] Social History Tobacco Use Types Packs/Day Years Used Date Smoking Tobacco: Every Day Cigarettes Smokeless Tobacco: Never Alcohol Use Standard Drinks/Week Comments Not Currently 0 (1 standard drink = 0.6 oz pur e alcohol) [facility] Utilities Answer Date Recorded In [...] your living situation today? I have a [facility] place to live 05/07/2023 Sex [...]
--- OUTSIDE RECORDS SUMMARY | 2023-08-07 07:01 | XMS_ITS | Encounter Summary ---
Author Organization [facility] Address [address] [place] [address] Care Team Providers Care Geography Instructor Name Role Phone Unavailable Primary Care Provider Unavailabl e Encounter Details Date Type Department Care Team (Late st Contact Info) Description 08/05/2023 Orders Only Department of Oncology in [place], [place] [address] [place] [phone] Tita Driver M.D. [address] [place] [phone] Social History Tobacco Use Types Packs/Day Years Used Date Smoking Tobacco: Every Day Cigarettes Smokeless Tobacco: Never Alcohol Use Standard Drinks/Week Comments Not Currently 0 (1 standard drink = 0.6 oz pur e alcohol) [facility] Utilities Answer Date Recorded In the past 12 months has [facility] [employer], gas, oil, or water [employer] threatened to shut off services in your [...]
--- OUTSIDE RECORDS SUMMARY | 2023-08-07 07:01 | XMS_ITS | Encounter Summary ---
Author Organization [facility] Address [address] [place] [address] Care Team Providers Care Supervising Editor Trailer Name Role Phone Unavailable Primary Care Provider Unavailabl e Reason for Visit * Outpatient (Routine) - Closed Specialty Diagnoses / Procedures Referred By Randy christiansen Referred To Contact Neurology Mohinder Ariza M.D. [address] [place] [phone] [facility] Referral ID Status Reason Start Date Expiration Date Visits Re quested Visits Authorized [id number] Closed 06/21/2022 06/20/2025 1 1 Encounter Details Date Type Department Care Team (Late st Contact Info) Description 07/09/2023 4:00 PM CDT Telemedicine Department of Neurology in [place], [place] [address] [place] [phone] Mohinder Ariza M.D. 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 I have a [facility] place to live 05/07/2023 Sex and Gender Information Value Date Recorded Sex Assigned at Female 05/07/2023 9:41 AM CDT Gender Identity Female 05/07/2023 9:41 AM CDT Sexual Orientation Straight 05/07/2023 9: 41 AM CDT documented as of this encounter Progress Notes * Mohinder Ariza M.D. - 07/09/2023 4:00 PM CDT SUBJECTIVE CHIEF COMPLAINT / REASON [...] up with PCP for possible consideration of MR. 05/09/[address] cervical spine without contrast Impression: 1. No acute osseous abnormality. Multilevel cervical spondylosis with cervical kyphotic curvature 2. Mild spinal canal stenosis at C5-6 and C6-7 3. Severe right neuroforaminal stenosis at C4-5, moderate bilateral neural foramen narrowing at C5-6, and severe bilateral neural foramen narrowing at C6-7 05/27/2022 Other Patient presented to ED at [facility] for right-sided chest pain. Recommended follow up with platemaker for bronchoscopy based on imaging. 05/27/2022 Critical [...] Evaluated by Dr. Tita Driver, Medical Oncology [facility]. Recommended immediate radiation referral for brain [...] Critical Imaging The patient presented to the [facility] ER after experiencing a focal seizure [...] fractions to a dose of 2700 cGy Patient spouse provided the following updates: 06/27 single focal seizure. 06/28 seizure with a fall at 8 AM. 06/29 focal seizure at 6:30 pm. 06/30 focal seizure. Keppra increased from 2000 mg BID to 2500/2000. 07/01 focal seizure. 07/02 focal seizure 6:30 AM. 07/03 Keppra increased to 3000/2000. 07/05 3:40 PM had a brief seizure and fell. 07/08 had a brief seizure 8:10 AM. She is completely off dexamethasone at this point. The following portions of the patient's history [...] deficit evident. No incoordination evident. DATA: MRI was apparently completed sometime earlier this month. This was not made available during visit. ASSESSMENT / PLAN #1 Secondary Malignant Neoplasm Brain (HCC) #2 Seizure (HCC) Belkis Manjarrez is a 57 y.o. female who presents for evaluation of brain metastases and associated seizures. We reviewed the recent seizures as outlined above. Discussed adding a second agent. Reached out to Dr. Mccord, this was his plan as well. We are going to proceed with Vimpat as outlined below. Summary of Plan: - Continue Keppra 3000 mg QAM, 2000 mg QPM. - Start Vimpat 50 mg BID. - If tolerated, increase to 100 mg BID in 2 weeks. EKG has already been completed. - We may need to further increase dose (assuming medication is tolerated) to achieve better seizurecontrol. - We will maintain off dexamethasone. - Evidently, an MRI was performed in June 2023. We do not have this on file, we will request it. - Assuming June MRI is reviewed and stable, we will plan on seeing patient back in September 2023 with a new scan obtained locally, sooner if needed. ADDENDUM: We called [facility] and called family again. There is no updated MRI available, May scan is the last one available. Plan remains as above. 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
--- OUTSIDE RECORDS SUMMARY | 2023-08-07 07:01 | XMS_ITS | Encounter Summary ---
Author Organization [facility] Address [address] [place] [address] Care Team Providers Care Braider Operator Name Role Phone Unavailable Primary Care Provider Unavailabl e Encounter Details Date Type Department Care Team ([facility] st Contact Info) Description 06/23/2023 Orders Only Department of Neurology in [place], [place] [address] [place] [phone] Edgardo Mccord M.D. [address] [place] [phone] Social History Tobacco Use Types Packs/Day Years Used Date Smoking Tobacco: Every Day Cigarettes Smokeless Tobacco: Never Alcohol Use Standard Drinks/Week Comments Not Currently 0 (1 standard drink = 0.6 oz pur e alcohol) [facility] Utilities Answer Date Recorded In [...] your living situation today? I have a [facility] place to live 05/07/2023 Sex and [...]
--- OUTSIDE RECORDS SUMMARY | 2023-08-07 07:01 | XMS_ITS | Encounter Summary ---
Author Organization [facility] Address [address] [place] [address] Care Team Providers Care Donor Services Technician Name Role Phone Unavailable Primary Care Provider Unavailabl e Reason for Referral * Outpatient (Routine) - Closed Specialty Diagnoses / Procedures Referred By Contac t Referred To Contact Diagnoses Secondary Malignant Neoplasm Brain (HCC) Seizure (HCC) Procedures EEG routine - awake and sleep Darion Heaton M.D. [address] [place] [phone] [facility] Referral ID Status Reason Start Date Expiration Date Visits Re quested Visits Authorized [id number] Closed 05/23/2023 05/22/2024 1 1 Reason for Visit * Outpatient (Routine) - Closed Specialty Diagnoses / Procedures Referred By Randy christiansen Referred To Contact Diagnoses Secondary Malignant Neoplasm Brain (HCC) Seizure (HCC) Procedures EEG routine - awake and sleep Darion Heaton M.D. 200 [place] [phone] [facility] Referral ID Status Reason Start Date Expiration Date Visits Re quested Visits Authorized [id number] Closed 05/23/2023 05/22/2024 1 1 Encounter Details Date Type Department Care Team (Latest Contact Info) Description 06/19/2023 1:27 PM CDT - 06/19/2023 11:59 PM CDT Hospital Encounter Department of Neurology in [place], [place] [address] [place] [phone] [place] [address] Secondary Malignant Neoplasm Brain (HCC); Seizure (HCC) Discharge Disposition: Home or Self Care Social History Tobacco Use Types Packs/Day Years Used Date Smoking Tobacco: Every Day Cigarettes Smokeless Tobacco: Never Alcohol Use Standard Drinks/Week Comments Not Currently 0 (1 standard drink = 0.6 oz pur e alcohol) [facility] Utilities Answer Date Recorded In the past 12 months has e [employer], gas, oil, or water [employer] threatened to shut off services in your [...] (three) times a day with meals. 04/24/2023 dexAMETHasone (DECADRON) 2 mg tablet Starting 06/02/2023, take 4 mg in the morning and 2 mg in the afternoon. Then starting 06/09/2023 decrease to 4 mg in the morning. 06/16/2023 decrease to 2 mg in the morning. 42 tablet 05/31/2023 ibuprofen (ADVIL,MOTRIN) 200 mg tablet Take 200 mg by mouth 4 (four) times a day as needed. 08/11/2009 levothyroxine (SYNTHROID, LEVOTHROID) 100 mcg tablet Take 100 mcg by mouth daily. 04/18/2022 omeprazole (PriLOSEC) [address] capsule Take 1 capsule (20 mg total) by mouth every morning before breakfast. 30 capsule 1 05/12/2023 oxyCODONE (ROXICODONE) 5 mg immediate release tablet TAKE 1 - 2 TABLET BY ORAL ROUTE THREE TIMES DAILY NEEDED, MAX 3/DAY 12/14/2022 prochlorperazine (COMPAZINE) 25 mg suppository Insert 10 mg into the rectum every 12 (twelve) hours as needed for nausea or vomiting. prochlorperazine (COMPAZINE) 5 mg tablet as needed. After chemo 06/16/2023 levETIRAcetam (KEPPRA) 100 mg/mL solutionIndications:Sec ondary Malignant Neoplasm Brain (HCC) Take 17.5 mL (1,750 mg total) by mouth 2 (two) times a day. 1050 mL 3 05/31/2023 07/28/2023 documented as of this encounter Plan of Treatment Not on file documented as of this encounter Procedures Procedure Name Priority Date/Time Associated Diagnosis Comments EEG ROUTINE - AWAKE AND SLEEP Routine 06/19/2023 2:41 PM CDT Secondary Malignant Neoplasm Brain (HCC) Seizure (HCC) documented in this encounter Results * EEG routine - [...] Diagnoses Diagnosis Secondary Malignant Neoplasm Brain (HCC) Seizure (HCC) documented in this encounter
--- OUTSIDE RECORDS SUMMARY | 2023-08-07 07:01 | XMS_ITS | Encounter Summary ---
Author Organization [facility] Address [address] [place] [address] Care Team Providers Care Chip Separator Name Role Phone Unavailable Primary Care Provider Unavailabl e Reason for Visit * Reason Comments Med Refill Encounter Details Date Type Department Care Team ([facility] st Contact Info) Description 05/12/2023 Refill Department of Neurology in [place], [place] [address] [place] [phone] Mohinder Ariza M.D. [address] [place] [phone] Med Refill Social History Tobacco Use Types Packs/Day Years Used Date Smoking Tobacco: Every Day Cigarettes Smokeless Tobacco: Never Alcohol Use Standard Drinks/Week Comments Not Currently 0 (1 standard drink = 0.6 oz pur e alcohol) [facility] Utilities Answer Date Recorded In the past 12 months has [facility] [employer], gas, oil, or water [employer] threatened to shut off services in your [...] your living situation today? I have a [facility] place to live 05/07/2023 Sex [...]
--- OUTSIDE RECORDS SUMMARY | 2023-08-07 07:02 | XMS_ITS | Encounter Summary ---
Author Organization [facility] Address [address] [place] [address] Care Team Providers Care Home Office Claims Examiner Name Role Phone Unavailable Primary Care Provider Unavailabl e Reason for Visit * Reason Comments Med Refill Encounter Details Date Type Department Care Team ([facility] st Contact Info) Description 05/06/2023 Refill Department of Neurology in [place], [place] [address] [place] [phone] Mohinder Ariza M.D. [address] [place] [phone] Med Refill Social History Tobacco Use Types Packs/Day Years Used Date Smoking Tobacco: Every Day Cigarettes Smokeless Tobacco: Never Alcohol Use Standard Drinks/Week Comments Not Currently 0 (1 standard drink = 0.6 oz pur e alcohol) [facility] Utilities Answer Date Recorded In the past 12 months has [facility] [employer], gas, oil, or water [employer] threatened to shut off services in your [...] your living situation today? I have a [facility] place to live 05/07/2023 Sex and [...]
--- OUTSIDE RECORDS SUMMARY | 2023-08-07 07:02 | XMS_ITS | Encounter Summary ---
Author Organization [facility] Address [address] [place] [address] Care Team Providers Care Hand Decorator Name Role Phone Unavailable Primary Care Provider Unavailabl e Encounter Details Date Type Department Care Team ([facility] st Contact Info) Description 05/06/2023 Clinical Communication Department of Radiation Oncology in [place], [place] [address] [place] [phone] Jane Tobar P.A.-C., M.S. [address] [place] [phone] Social History Tobacco Use Types Packs/Day Years Used Date Smoking Tobacco: Every Day Cigarettes Smokeless Tobacco: Never Alcohol Use Standard Drinks/Week Comments Not Currently 0 (1 standard drink = 0.6 oz pur e alcohol) [facility] Utilities Answer Date Recorded In the past 12 months has [facility] [employer], gas, oil, or water [employer] threatened to shut off services in your [...] your living situation today? I have a [facility] place to live 05/07/2023 Sex and [...] for a management visit tomorrow with Dr. Patterson. She will contact us sooner with questions or concerns. She verbally expressed her understanding of the plan. Jane Tobar P.A.-C., M.S. documented in this encounter Plan of Treatment Not on file documented as of this encounter Visit Diagnoses Not on filedocumented in this encounter
--- OUTSIDE RECORDS SUMMARY | 2023-08-07 07:02 | XMS_ITS | Encounter Summary ---
Author Organization [facility] Address [address] [place] [address] Care Team Providers Care Fuel Efficient Automobile Designer Name Role Phone Unavailable Primary Care Provider Unavailabl e Reason for Referral * Outpatient (Routine) - Authorized Specialty Diagnoses / Procedures Referred By Contac t Referred To Contact Radiation Oncology Marnie Schultz APRN, C.N.P., D.N.PDaniel [address] [place] [phone] [facility] Region Referral ID Status Reason Start Date Expiration Date V isits Requested Visits Authorized [id number] Authorized 05/08/2023 11/06/2024 10 10 Scheduling Instructions Phone visit on please * Radiation Therapy (Routine) - Authorized Specialty Diagnoses / Procedures Referred By Contac t Referred To Contact Diagnoses Secondary Malignant Neoplasm Brain (HCC) Procedures Management Visit Radha Patterson M.D. [address] [place] [phone] [facility] Region Referral ID Status Reason Start Date Expiration Date V isits Requested Visits Authorized [id number] Authorized 04/29/2023 04/28/2024 10 10 Reason for Visit * Radiation Therapy (Routine) - Authorized Specialty Diagnoses / Procedures Referred By Contac t Referred To Contact Diagnoses Secondary Malignant Neoplasm Brain (HCC) Procedures Management Visit Radha Patterson M.D. 200 [place] [phone] [facility] Region Referral ID Status Reason Start Date Expiration Date V isits Requested Visits Authorized [id number] Authorized 04/29/2023 04/28/2024 10 10 Encounter Details Date Type Department Care Team (Latest Contact Info) Description 05/08/2023 9:00 AM CDT - 05/08/2023 3:06 PM CDT Hospital Encounter Department of Radiation Oncology in [place], [place] [address] [place] [phone] Angel Luis Esquivel M.D. 200 [place] [phone] Secondary Malignant Neoplasm Brain (HCC) Social History Tobacco Use Types Packs/Day Years Used Date Smoking Tobacco: Every Day Cigarettes Smokeless Tobacco: Never Alcohol Use Standard Drinks/Week Comments Not Currently 0 (1 standard drink = 0.6 oz pur e alcohol) [facility] Utilities Answer Date Recorded In the past 12 months has e [employer], gas, oil, or water [employer] threatened to shut off services in your [...] (HCC) SUPERVISED BY: Angel Luis Esquivel M.D. ([phone]) HISTORY OF PRESENT ILLNESS Belkis Manjarrez is a 57 y.o. female with metastatic small cell lung cancer. Patient completed SRS to the lesions in the left anterior frontal today, May 07. Treatment Course: [id number] Plan ID Fractions Dose / Fraction (cGy) Dose Treated (cGy) Dose Planned (cGy) First Treatment Last Treatment Elapsed Days [id number] 05/06/2023 05/08/2023 2 Course [...] or concerns. Signed by: Marnie Schultz APRN, Eric.NPenny, D.N.P. 05/08/2023 10:04 AM CDT Associated attestation [...] episode of seizure activity as described in Daniel Schultz's note. Her thinking cleared quite quickly [...] Luis Esquivel M.D. 05/08/23 3:06 PM CDT [facility] Radiation Therapy [facility] documented in this encounter Plan of Treatment [...]
--- OUTSIDE RECORDS SUMMARY | 2023-08-07 07:02 | XMS_ITS | Encounter Summary ---
Author Organization [facility] Address [address] [place] [address] Care Team Providers Care Coding Support Specialist Name Role Phone Unavailable Primary Care Provider Unavailabl e Reason for Referral * Outpatient (Routine) - Closed Specialty Diagnoses / Procedures Referred By Randy christiansen Referred To Contact Neurology Mohinder Ariza M.D. [address] [place] [phone] [facility] Referral ID Status Reason Start Date Expiration Date Visits Re quested Visits Authorized [id number] Closed 05/01/2023 10/30/2024 1 1 Encounter Details Date Type Department Care Team (Late st Contact Info) Description 05/01/2023 Orders Only Department of Neurology in [place], [place] [address] [place] [phone] Mohinder Ariza M.D. [address] [place] [phone] Social History Tobacco Use Types Packs/Day Years [...]
--- OUTSIDE RECORDS SUMMARY | 2023-08-07 07:02 | XMS_ITS | Encounter Summary ---
Author Organization [facility] Address [address] [place] [address] Care Team Providers Care Assistant Store Manager Sales Name Role Phone Unavailable Primary Care Provider Unavailabl e Encounter Details Date Type Department Care Team (Latest Contact Info) Description 04/30/2023 9:50 PM CDT Ancillary Procedure Department of Radiology in [place], [place] [address] [place] [phone] Radha Patterson M.D. [address] [place] [phone] Secondary Malignant Neoplasm Brain (HCC) Social History [...]
--- OUTSIDE RECORDS SUMMARY | 2023-08-07 07:02 | XMS_ITS | Encounter Summary ---
Author Organization [facility] Address [address] [place] [address] Care Team Providers Care Geospatial Scientist Name Role Phone Unavailable Primary Care Provider Unavailabl e Encounter Details Date Type Department Care Team (Late st Contact Info) Description 04/30/2023 Orders Only Department of Radiation Oncology in [place], [place] [address] [place] [phone] Rdaha Patterson M.D. [address] [place] [phone] Secondary Malignant Neoplasm Brain (HCC) (Primary Dx) [...] on file documented as of this encounter Results * [...]
--- OUTSIDE RECORDS SUMMARY | 2023-08-07 07:02 | XMS_ITS | Encounter Summary ---
Author Organization [facility] Address [address] [place] [address] Care Team Providers Care Cant Hooker Name Role Phone Unavailable Primary Care Provider Unavailabl e Reason for Referral * Radiation Therapy (Routine) - Closed Specialty Diagnoses / Procedures Referred By Contac t Referred To Contact Diagnoses Secondary Malignant Neoplasm Brain (HCC) Procedures Initial Rad Onc Treatment Planning CT Simulation Radha Patterson M.D. 200 [place] [phone] [facility] Region Referral ID Status Reason Start Date Expiration Date Visits Re quested Visits Authorized [id number] Closed 04/29/2023 04/28/2024 1 1 Reason for Visit * Radiation Therapy (Routine) - Closed Specialty Diagnoses / Procedures Referred By Randy christiansen Referred To Contact Diagnoses Secondary Malignant Neoplasm Brain (HCC) Procedures Initial Rad Onc Treatment Planning CT Simulation Radha Patterson M.D. 200 [place] [phone] [facility] Region Referral ID Status Reason Start Date Expiration Date Visits Re quested Visits Authorized [id number] Closed 04/29/2023 04/28/2024 1 1 Encounter Details Date Type Department Care Team (Latest Contact Info) Description 05/01/2023 8:30 AM CDT - 05/01/2023 3:46 PM CDT Hospital Encounter Department of Radiation Oncology in [address] [phone] Radha Patterson M.D. [address] [place] [phone] Secondary Malignant Neoplasm Brain (HCC) Social History [...] hours as needed for nausea or vomiting. clonazePAM (KlonoPIN) 0.5 mg disintegrating tablet Dissolve 1 tablet (0.5 mg total) in the mouth 2 (two) times a day as needed for seizures (Please take for seizure lasting greater than 1 minute). 30 tablet 06/21/2022 05/02/2023 dexAMETHasone (DECADRON) 2 mg tablet Take 1 tablet (2 mg total) by mouth 2 (two) times a day. 20 tablet 05/01/2023 05/31/2023 HYDROcodone-acetaminoph en (NORCO) 5-325 mg per tablet TAKE 1 TABLET BY ORAL ROUTE EVERY 8-12 HOURS NEEDED FOR CHRONIC PAIN MAX 3/DAY 06/17/2022 05/02/2023 levETIRAcetam (KEPPRA) 100 mg/mL solution [...] a day. 60 tablet 11 05/01/2023 05/02/2023 lidocaine viscous (lidocaine) 2 % mucosal solution [...] 05/30/2023 memantine (NAMENDA) 10 mg tablet Take 10 mg by mouth 2 (two) times a day. 05/02/2023 memantine (NAMENDA) 10 mg tablet Take 1 tablet (10 mg total) by mouth 2 (two) times a day. 60 tablet 10/07/2022 05/30/2023 documented as of this encounter Procedure Notes * Kay Parekh RTT - 05/01/2023 8:30 AM CDTAssociated Order(s): [...] planning. CT images were transferred to the Eclipse treatment planning system, after a reference isocenter was determined and marked. Segmentation and treatment planning will take place prior to treatment delivery. Patient set up and imaging was appropriate and completed without incident. Celery Stripper use:No Associated attestation - Radha Patterson M.D. - 05/01/2023 3:45 PM CDT I was present during all critical and rincon portions of the procedure(s) and immediately available [facility] services the entire duration. See note [...]
--- OUTSIDE RECORDS SUMMARY | 2023-08-07 07:02 | XMS_ITS | Encounter Summary ---
Author Organization [facility] Address [address] [place] [address] Care Team Providers Care Quality Control Lab Technician Name Role Phone Unavailable Primary Care Provider Unavailabl e Reason for Visit * Radiation Therapy (Routine) - Closed Specialty Diagnoses / Procedures Referred By Contac t Referred To Contact Diagnoses Secondary Malignant Neoplasm Brain (HCC) Procedures Prior Auth Rad Tx [place] [facility] Radha Patterson M.D. [address] [place] [phone] [facility] Referral ID Status Reason Start Date Expiration Date Visits Re quested Visits Authorized [id number] Closed 04/30/2023 02/17/2024 3 3 Encounter Details Date Type Department Care Team (Latest Contact Info) Description 05/07/2023 11:53 AM CDT - 05/07/2023 11:59 PM CDT Hospital Encounter Department of Radiation Oncology in [place], [place] [address] [place] [phone] Radha Patterson M.D. [address] [place] [phone] Discharge Disposition: Home or Self Care Social History Tobacco Use Types Packs/Day Years Used Date Smoking Tobacco: Every Day Cigarettes Smokeless Tobacco: Never Alcohol Use Standard Drinks/Week Comments Not Currently 0 (1 standard drink = 0.6 oz pur e alcohol) [facility] Utilities Answer Date Recorded In the past 12 months has [employer], gas, oil, or water [employer] threatened to shut off services in your [...] your living situation today? I have a [facility] place to live 05/07/2023 Sex [...] 2 (two) times a day. 10 tablet 05/06/2023 05/08/2023 levETIRAcetam (KEPPRA) 100 mg/mL solution Take 10 mL (1,000 mg total) by mouth 2 (two) times a day. 600 mL 11 05/06/2023 05/08/2023 lidocaine viscous (lidocaine) 2 % mucosal solution [...] 10/07/2022 05/30/2023 documented as of this encounter Plan of Treatment Not on file documented as of this encounter Visit Diagnoses Not on filedocumented in this encounter
--- OUTSIDE RECORDS SUMMARY | 2023-08-07 07:02 | XMS_ITS | Encounter Summary ---
Author Organization [facility] Address [address] [place] [address] Care Team Providers Care Claim Attorney Name Role Phone Unavailable Primary Care Provider Unavailabl e Reason for Visit * Reason Comments Med Refill Encounter Details Date Type Department Care Team (Late st Contact Info) Description 03/31/2023 Refill Department of Neurology in [place], [place] [address] [place] [phone] Mohinder Ariza M.D. [address] [place] [phone] Med Refill Social History Tobacco Use Types [...]
--- OUTSIDE RECORDS SUMMARY | 2023-08-07 07:02 | XMS_ITS | Encounter Summary ---
Author Organization [facility] Address [address] [place] [address] Care Team Providers Care Encapsulator Name Role Phone Unavailable Primary Care Provider Unavailabl e Reason for Visit * Reason Onset Date Comments Prescription change and directions 05/06/2023 Encounter Details Date Type Department Care Team (Latest Contact Info) Description 05/06/2023 Clinical Communication Department of Neurology in [place], [place] [address] [place] [phone] Mohinder Ariza M.D. [address] [place] [phone] Prescription change and directions Social History Tobacco Use Types Packs/Day Years Used Date Smoking Tobacco: Every Day Cigarettes Smokeless Tobacco: Never Alcohol Use Standard Drinks/Week Comments Not Currently 0 (1 standard drink = 0.6 oz pur e alcohol) [facility] Utilities Answer Date Recorded In the past 12 months has [facility] [employer], gas, oil, or water [employer] threatened to shut off services in your [...] your living situation today? I have a [facility] place to live 05/07/2023 Sex and Gender Information Value Date Recorded Sex Assigned at Female 05/07/2023 9:41 AM CDT Gender Identity Female 05/07/2023 9:41 AM CDT Sexual Orientation Straight 05/07/2023 9: 41 AM CDT documented as of this encounter Miscellaneous Notes * Telephone Encounter - Lucy Bueno R.N. - 05/06/2023 10:07 AM CDT SUBJECTIVE CHIEF [...] equal 1000 mg this morning and starting tonglen shewill take 10 ml and then twice daily [...]
--- OUTSIDE RECORDS SUMMARY | 2023-08-07 07:02 | XMS_ITS | Clinical Summary ---
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 Tobacco abuse 08/01/2009 Encounters Date Type Department Care Team Description 07/31/2023 7:00 AM CDT - 07/31/2023 11:59 PM CDT Hospital Encounter [facility] [address] [place] [address] Tita Driver MD Small cell lung cancer, right lower lobe (HC) 07/31/2023 Travel from Last 3 Months Immunizations Name Administration Dates Next Due Influenza [...] Comments Blood Pressure 120/74 02/04/2023 2:54 PM WOOL BATTING WORKER Pulse 60 02/04/2023 2:54 PM WOOL BATTING WORKER Temperature 36.6 ??C (97.8 ??F) 06/17/2022 1 1:40 AM CDT Respiratory Rate 18 06/17/2022 12:2 5 PM CDT Oxygen Saturation 99% 02/04/2023 2:54 PM WOOL BATTING WORKER Inhaled Oxygen Concentration - - Weight 68.4 kg (150 lb 14.4 oz) 02/04/2023 2:54 PM WOOL BATTING WORKER Height 170.2 cm (5' 7) 06/14/2022 12:0 [...] 02/08 Pap test for age 21-65 08/14/2024 2, 08/14/2021, 02/16/2009, Additional history exists COVID-19 vaccine series Completed 11/26/19, 10/23/2021, 12/28/2020, Additional history exists Pneumococcal series for age 6-64 Aged Out No longer eligible based on patient's age to complete this topic Procedures Procedure Name Priority Date/Time Associated Diagnosis Comments PET CT SKULL BASE TO MID THIGH SUBSEQUENT TREAT Routine 07/31/2023 8:45 AM CDT Small cell lung cancer, right lower lobe (HC) HPV THIN PREP Routine 08/14/2021 8:15 AM CDT XR MAMMO BILAT SCREEN FFDM (IA) Routine 02/08/2009 9:12 AM WOOL BATTING WORKER Other Screening Mammogram LIPID PANEL Routine 02/08/2009 8:53 AM WOOL BATTING WORKER Well Woman Exam from Last 3 Months or Most Recently Relevant to Health Maintenance Results * PET CT SKULL BASE TO MID THIGH SUBSEQUENT TREAT (07/31/2023 8:45 AM CDT) Anatomical Region Laterality Modality Positron Emissio n Tomography (PET) 08/03/2023 5:38 AM CDT Narrative 08/03/2023 5:38 AM CDT For Patients: ??As a result of the Cures Act, medical imaging exams and procedure reports are released immediately into your electronic medical record. ??You may view this report before your referring provider. ??If you have questions, please contact your health care provider. Indication: Small-cell lung cancer, right lower lobe, subsequent examination Technique: Patient was injected in the left antecubital vein with 12.45 mCi FDG intravenously, with PET-CT imaging performed from the skull vertex to mid thighs [address] images were obtained for attenuation correction and localization, and do not replace a diagnostic quality examination. Blood glucose: 107 mg/dL. Comparison: PET-CT performed 05/29/2023 Findings: Liver background: SUVMean 2.5 Mediastinal blood pool background: SUVMean 1.7 Head and Neck Brain: No abnormal foci of uptake appreciated. Sinuses, orbits, mastoids: No significant abnormality or abnormal uptake appreciated. Oral cavity, pharynx, larynx: No significant abnormality or abnormal uptake appreciated. Lymph nodes: No enlarged or avid nodes appreciated. Thyroid: Grossly unremarkable. Chest Lungs: Increased size of a right perihilar mass measuring 4.0 x 2.9 centimeters, previously 1.8 x 1.6 centimeters. While the posterior inferior portion of the mass demonstrates decreased uptake with SUV max 3.2, previously 4.7, there is new uptake in the growing portion of the anterior superior mass with SUV max 5.4, previously non avid. Mediastinum: Right chest MediPort terminates in the SVC. Lymph nodes: Increased uptake within right hilar and subcarinal nodes, previously non avid. A right central hilar node measures 12 millimeters, SUV max 8.0, while a subcarinal node measures 11 millimeters, SUV max 4.5. Abdomen and Pelvis Hepatobiliary: No abnormal foci of uptake. No significant abnormality appreciated. Spleen: Unremarkable. Pancreas: Unremarkable. Adrenal glands: Increased size of the right adrenal gland lesion measuring up to 2.9 centimeters with SUV max 13.6, previously 1.4 centimeters with SUV max 13.9. Kidneys: Parenchyma appears grossly unremarkable with no abnormal uptake appreciated. No calculi. No hydronephrosis. Bowel: No abnormal focal uptake appreciated. No mass lesion. Vascular: Calcified atherosclerosis. Lymph nodes: No enlarged or avid nodes appreciated. Peritoneum: No avid mass. No free air. No free fluid. : No abnormal uptake appreciated. Soft tissues: No avid soft tissue lesion appreciated. Bones: No focal uptake appreciated. Diffuse uptake throughout osseous structures suspicious for marrow infiltration. Impression: 1. Increased size and uptake of the right perihilar mass with new hilar and mediastinal lymphadenopathy and increased size of the right adrenal lesion compatible with progression of disease. 2. New diffuse osseous uptake noted with a generalized heterogeneous and nodular pattern. While this could represent lymphadenopathy and may be seen in the setting of colony-stimulating factors, the appearances most concerning for marrow infiltration of disease. Dictated by Aj Fortune MD @ 08/03/2023 5:38:07 AM (Electronically Signed) Procedure Note Aj Fortune MD - 08/03/2023 For Patients: As a result of the Century Cures Act, medical imagingexams and procedure reports are released immediately into your electronicmedical record. You may view this report before your referring provider.If you have questions, please contact your health care provider. Indication: Small-cell lung cancer, right lower lobe, subsequent examination Technique: Patient was injected in the left antecubital vein with 12.45 mCi FDGintravenously, with PET-CT imaging performed from the skull vertex to midthighs [address] images were obtained for attenuationcorrection and localization, and do not replace a diagnostic qualityexamination. Blood glucose: 107 mg/dL. Comparison: PET-CT performed 05/29/2023 Findings: Liver background: SUVMean 2.5 Mediastinal blood pool background: SUVMean 1.7 Head and Neck Brain: No abnormal foci of uptake appreciated. Sinuses, orbits, mastoids: No significant abnormality or abnormal uptakeappreciated. Oral cavity, pharynx, larynx: No significant abnormality or abnormaluptake appreciated. Lymph nodes: No enlarged or avid nodes appreciated. Thyroid: Grossly unremarkable. Chest Lungs: Increased size of a right perihilar mass measuring 4.0 x 2.9centimeters, previously 1.8 x 1.6 centimeters. While the posteriorinferior portion of the mass demonstrates decreased uptake with SUV max3.2, previously 4.7, there is new uptake in the growing portion of theanterior superior mass with SUV max 5.4, previously non avid. Mediastinum: Right chest MediPort terminates in the SVC. Lymph nodes: Increased uptake within right hilar and subcarinal nodes,previously non avid. A right central hilar node measures 12 millimeters,SUV max 8.0, while a subcarinal node measures 11 millimeters, SUV max4.5. Abdomen and Pelvis Hepatobiliary: No abnormal foci of uptake. No significant abnormalityappreciated. Spleen: Unremarkable. Pancreas: Unremarkable. Adrenal glands: Increased size of the right adrenal gland lesion measuringup to 2.9 centimeters with SUV max 13.6, previously 1.4 centimeters withSUV max 13.9. Kidneys: Parenchyma appears grossly unremarkable with no abnormal uptakeappreciated. No calculi. No hydronephrosis. Bowel: No abnormal focal uptake appreciated. No mass lesion. Vascular: Calcified atherosclerosis. Lymph nodes: No enlarged or avid nodes appreciated. Peritoneum: No avid mass. No free air. No free fluid. : No abnormal uptake appreciated. Soft tissues: No avid soft tissue lesion appreciated. Bones: No focal uptake appreciated. Diffuse uptake throughout osseousstructures suspicious for marrow infiltration. Impression: 1. Increased size and uptake of the right perihilar mass with new hilarand mediastinal lymphadenopathy and increased size of the right adrenallesion compatible with progression of disease. 2. New diffuse osseous uptake noted with a generalized heterogeneous andnodular pattern. While this could represent lymphadenopathy and may beseen in the setting of colony-stimulating factors, the appearances mostconcerning for marrow infiltration of disease. Dictated by Aj Fortune MD @ 08/03/2023 5:38:07 AM (Electronically Signed) Tita Driver MD PET * HPV HIGH RISK (08/14/2021 8:15 AM CDT) TYPE 16 Negative Negative 08/16/2021 4:43 PM CDT [facility] TYPE 18 Negative Negative 08/16/2021 4:43 PM CDT [facility] OTHER HIGH RISK TYPES Negative Negative 08/16/2021 4:43 PM CDT [facility] Other (Cervical/Vagina l) 08/14/2021 8:15 AM CDT 08/15/2021 7:46 AM CDT Narrative [facility] - 08/16/2021 4:43 PM CDT HPV types 16, 18, 31, 33, 35, 39, 45, 51, 52, 56, 58, 59, 66 and 68 DNA were undetectable or below the pre-set threshold. Methodology: James José Miguel 4800 HPV Test Andres Trimble MD MICROBIOLOGY [facility] [address] [place] [address], * XR MAMMO BILAT SCREEN FFDM (02/08/2009 9:12 AM WOOL BATTING WORKER) MAMMOGRAM ACR 2 Benign Finding Anatomical Region Laterality Modality BREASTS, Breast Left, Breast Right Bilateral Mammography 02/08/2009 9:12 AM WOOL BATTING WORKER Narrative 02/08/2009 3:26 PM WOOL BATTING WORKER Benign findings noted on mammogram. ??For complete description of the mammographic examination, please reference scanned document within [employer]. ?? We are mailing a results letter to the patient. ACR 2 Benign Finding Procedure Note FrankenocMilo W - 02/08/2009 Benign findings noted on mammogram. For complete description of themammographic examination, please reference scanned document [facility]. We are mailing a results letter to the patient. ACR 2 Benign Finding Lexi Shirley MD MAMMO * (ABNORMAL) LIPID PANEL (02/08/2009 8:53 AM WOOL BATTING WORKER) CHOLESTEROL,TOTAL 239(H) 110 - 199 mg/dL [facility] TRIGLYCERIDES 164(H) <150 mg/dL [facility] HDL CHOLESTEROL 60 >40 mg/dL [facility] CHOL/HDL RATIO 3.98 <4.51 [facility] LDL CHOLESTEROL 146(H) <131 mg/dL [facility] PATIENT STATUS Fasting [facility] Blood specimen (specimen) BLOOD SPECIMEN / Unknown 02/08/2009 8:53 AM WOOL BATTING WORKER 02/08/2009 8:49 AM WOOL BATTING WORKER Lexi Shirley MD CHEMISTRY [facility] [address] [place] [address] from Last 3 Months or Most Recently Relevant to Health Maintenance Advance Directives * Full Code (Latest Code Status on File) Date Activated Date Inactivated Comments 06/17/2022 10:00 AM 06/17/2022 2:54 PM Question Answer Comments Code Status Discussion: Reviewed Preferences Care Teams Skilled Nursing Case Manager Relationship Specialty Start Date End Date Andres Trimble MD [address] [place] [address] PCP - General Family Practice 02/04/19 Ceci Sanders, RN, BSN [address] [place] [address] Nurse Navigator - Oncology Registered Nurse 06/18/22
--- OUTSIDE RECORDS SUMMARY | 2023-08-07 07:02 | XMS_ITS | Encounter Summary ---
Author Organization [facility] Address [address] [place] [address] Care Team Providers Care Glassware Maker Name Role Phone Unavailable Primary Care Provider Unavailabl e Reason for Referral * Outpatient (Routine) - Authorized Specialty Diagnoses / Procedures Referred By Contac t Referred To Contact Radiation Oncology Radha Patterson M.D. [address] [place] [phone] [facility] Region Referral ID Status Reason Start Date Expiration Date V isits Requested Visits Authorized [id number] Authorized 05/07/2023 11/05/2024 1 1 Scheduling Instructions In 1 week with YIG * Radiation Therapy (Routine) - Authorized Specialty Diagnoses / Procedures Referred By Contac t Referred To Contact Diagnoses Secondary Malignant Neoplasm Brain (HCC) Procedures Management Visit Radha Patterson M.D. [address] [place] [phone] [facility] Region Referral ID Status Reason Start Date Expiration Date V isits Requested Visits Authorized [id number] Authorized 04/29/2023 04/28/2024 10 10 Reason for Visit * Radiation Therapy (Routine) - Authorized Specialty Diagnoses / Procedures Referred By Contac t Referred To Contact Diagnoses Secondary Malignant Neoplasm Brain (HCC) Procedures Management Visit Radha Patterson M.D. [address] [place] [phone] [facility] Region Referral ID Status Reason Start Date Expiration Date V isits Requested Visits Authorized [id number] Authorized 04/29/2023 04/28/2024 10 10 Encounter Details Date Type Department Care Team (Latest Contact Info) Description 05/07/2023 11:53 AM CDT - 05/07/2023 4:36 PM CDT Hospital Encounter Department of Radiation Oncology in [place], [place] [address] [place] [phone] Radha Patterson M.D. [address] [place] [phone] Secondary Malignant Neoplasm Brain (HCC) Social History Tobacco Use Types Packs/Day Years Used Date Smoking Tobacco: Every Day Cigarettes Smokeless Tobacco: Never Alcohol Use Standard Drinks/Week Comments Not Currently 0 (1 standard drink = 0.6 oz pur e alcohol) [facility] Utilities Answer Date Recorded In the past 12 months has th [employer] electric, gas, oil, or water [employer] threatened to shut off services in [...] (cGy) First Treatment Last Treatment Elapsed Days [id number] [phone] 05/06/2023 05/07/2023 1 Course [...] medications are managed by [facility] in [place]. Patient denies heada ches, nausea, vomiting or [...] Dr. Driver regarding upcoming scans scheduled at [facility] since brain MR is scheduled now for [...]
--- OUTSIDE RECORDS SUMMARY | 2023-08-07 07:02 | XMS_ITS | Encounter Summary ---
Author Organization [facility] Address [address] [place] [address] Care Team Providers Care Lock And Dam Operator Name Role Phone Unavailable Primary Care Provider Unavailabl e Reason for Visit * Outpatient (Routine) - Closed Specialty Diagnoses / Procedures Referred By Randy christiansen Referred To Contact Neurology Mohinder Ariza M.D. [address] [place] [phone] [facility] Referral ID Status Reason Start Date Expiration Date Visits Re quested Visits Authorized [id number] Closed 05/01/2023 10/30/2024 1 1 Encounter Details Date Type Department Care Team (Late st Contact Info) Description 05/02/2023 11:40 AM CDT Telemedicine Department of Oncology in [place], [place] [address] [place] [phone] Mohinder Ariza M.D. [address] [place] [phone] Secondary Malignant Neoplasm Brain (HCC) (Primary Dx); [...] 05/27/2022 Other Patient presented to ED at [facility] for right-sided chest pain. Recommended follow up with ancillary services manager for bronchoscopy based on imaging. 05/27/2022 Critical [...] Evaluated by Dr. Tita Driver, Medical Oncology [facility]. Recommended immediate radiation referral for [...] Critical Imaging The patient presented to the [facility] ER after experiencing a focal [...]
--- OUTSIDE RECORDS SUMMARY | 2023-08-07 07:02 | XMS_ITS | Encounter Summary ---
Author Organization [facility] Address [address] [place] [address] Care Team Providers Care Grocery Caddy Name Role Phone Unavailable Primary Care Provider Unavailabl e Reason for Referral * Outpatient (Routine) - Closed Specialty Diagnoses / Procedures Referred By Randy christiansen Referred To Contact Radiation Oncology Jane Tobar P.A.-C., M.S. [address] [place] [phone] Radha Patterson M.D. [address] [place] [phone] Referral ID Status Reason Start Date Expiration Date Visits Re quested Visits Authorized [id number] Closed 04/29/2023 10/28/2024 1 1 Scheduling Instructions MRI brain at [facility] - ordered by ER physician; please get images and report; please wait to schedule - pending imaging review by ananya SHAH and kit on 05/01/23 Encounter Details Date Type Department Care Team (Late st Contact Info) Description 04/29/2023 Orders Only Department of Radiation Oncology in [place], [place] [address] [place] [phone] Jane Tobar P.A.-C., M.S. [address] [place] [phone] Malignant Neoplasm Of Lung Small Cell Right [...]
--- OUTSIDE RECORDS SUMMARY | 2023-08-07 07:02 | XMS_ITS | Encounter Summary ---
Author Organization [facility] Address [address] [place] [address] Care Team Providers Care Weather Forecaster Name Role Phone Unavailable Primary Care Provider Unavailabl e Reason for Visit * Reason Onset Date Comments levetiracetam 05/02/2023 Encounter Details Date Type Department Care Team (Late st Contact Info) Description 05/02/2023 Clinical Communication Department of Neurology in [place], [place] [address] [place] [phone] Mohinder Ariza M.D. [address] [place] [phone] levetiracetam Social History Tobacco Use Types Packs/Day Years Used Date Smoking Tobacco: Every Day Cigarettes Smokeless Tobacco: Never Alcohol Use Standard Drinks/Week Comments Not Currently 0 (1 standard drink = 0.6 oz pur e alcohol) [facility] Utilities Answer Date Recorded In the past 12 months has [facility], gas, oil, or water [employer] threatened to shut off services in your [...]
--- OUTSIDE RECORDS SUMMARY | 2023-08-07 07:02 | XMS_ITS | Encounter Summary ---
Author Organization [facility] Address [address] [place] [address] Care Team Providers Care Respooler Name Role Phone Unavailable Primary Care Provider Unavailabl e Reason for Visit * Radiation Therapy (Routine) - Closed Specialty Diagnoses / Procedures Referred By Contac t Referred To Contact Diagnoses Secondary Malignant Neoplasm Brain (HCC) Procedures Prior Auth Rad Tx AR STEREOTACTIC BODY RADTN DEL [facility] Radha Patterson M.D. [address] [place] [phone] [facility] Referral ID Status Reason Start Date Expiration Date Visits Re quested Visits Authorized [id number] Closed 04/30/2023 02/17/2024 3 3 Encounter Details Date Type Department Care Team (Latest Contact Info) Description 05/06/2023 4:00 PM CDT - 05/06/2023 11:59 PM CDT Hospital Encounter Department of Radiation Oncology in [place], [place] [address] [place] [phone] Radha Patterson M.D. [address] [place] [phone] Discharge Disposition: Home or Self Care Social History Tobacco Use Types Packs/Day Years Used Date Smoking Tobacco: Every Day Cigarettes Smokeless Tobacco: Never Alcohol Use Standard Drinks/Week Comments Not Currently 0 (1 standard drink = 0.6 oz pur e alcohol) [facility] Utilities Answer Date Recorded In the past 12 months has [employer], gas, oil, or water [employer] threatened to shut off services in [...] your living situation today? I have a [facility] place to live 05/07/2023 Sex and [...]
--- OUTSIDE RECORDS SUMMARY | 2023-08-07 07:02 | XMS_ITS | Encounter Summary ---
Author Organization [facility] Address [address] [place] [address] Care Team Providers Care Recovery Advocate Name Role Phone Unavailable Primary Care Provider Unavailabl e Reason for Referral * Outpatient (Routine) - Authorized Specialty Diagnoses / Procedures Referred By Contac t Referred To Contact Radiation Oncology Radha Patterson M.D. [address] [place] [phone] [facility] Region Referral ID Status Reason Start Date Expiration Date V isits Requested Visits Authorized [id number] Authorized 04/29/2023 10/28/2024 10 10 * Radiation Therapy (Routine) - Authorized Specialty Diagnoses / Procedures Referred By Contac t Referred To Contact Diagnoses Secondary Malignant Neoplasm Brain (HCC) Procedures Management Visit Radha Patterson M.D. [address] [place] [phone] [facility] Region Referral ID Status Reason Start Date Expiration Date V isits Requested Visits Authorized [id number] Authorized 04/29/2023 04/28/2024 10 10 * Radiation Therapy (Routine) - Closed Specialty Diagnoses / Procedures Referred By Contac t Referred To Contact Diagnoses Secondary Malignant Neoplasm Brain (HCC) Procedures Prior Auth Rad Tx MD STEREOTACTIC BODY RADTN DEL [facility] Radha Patterson M.D. [address] [place] [phone] [facility] Referral ID Status Reason Start Date Expiration Date Visits Re quested Visits Authorized [id number] Closed 04/30/2023 02/17/2024 3 3 * Radiation Therapy (Routine) - Closed Specialty Diagnoses / Procedures Referred By Randy christiansen Referred To Contact Diagnoses Secondary Malignant Neoplasm Brain (HCC) Procedures Initial Rad Onc Treatment Planning CT Simulation Radha Patterson M.D. [address] [place] [phone] [facility] Referral ID Status Reason Start Date Expiration Date Visits Re quested Visits Authorized [id number] Closed 04/29/2023 04/28/2024 1 1 Encounter Details Date Type Department Care Team (Late st Contact Info) Description 04/29/2023 Clinical Communication Department of Radiation Oncology in [place], [place] [address] [place] [phone] Jane Tobar P.A.-C., M.S. [address] [place] [phone] Social History Tobacco Use Types Packs/Day Years [...] Miscellaneous Notes * Telephone Encounter - Jane Toabr P.A.-C., M.S. - 04/29/2023 3:54 PM CDT We received a phone from Dr. Curtis at the [facility] ER today regarding this patient. The [...]
--- OUTSIDE RECORDS SUMMARY | 2023-08-07 07:02 | XMS_ITS | Encounter Summary ---
Author Organization [facility] Address [address] [place] [address] Care Team Providers Care Clinical Technician Name Role Phone Unavailable Primary Care Provider Unavailabl e Reason for Visit * Radiation Therapy (Routine) - Closed Specialty Diagnoses / Procedures Referred By Contac t Referred To Contact Diagnoses Secondary Malignant Neoplasm Brain (HCC) Procedures Prior Auth Rad Tx IN STEREOTACTIC BODY [facility] Radha Patterson M.D. [address] [place] [phone] [facility] Referral ID Status Reason Start Date Expiration Date Visits Re quested Visits Authorized [id number] Closed 04/30/2023 02/17/2024 3 3 Encounter Details Date Type Department Care Team (Latest Contact Info) Description 05/08/2023 8:05 AM CDT - 05/08/2023 8:59 AM CDT Hospital Encounter Department of Radiation Oncology in [place], [place] [address] [place] [phone] Radha Patterson M.D. [address] [place] [phone] Discharge Disposition: Home or Self Care Social History Tobacco Use Types Packs/Day Years Used Date Smoking Tobacco: Every Day Cigarettes Smokeless Tobacco: Never Alcohol Use Standard Drinks/Week Comments Not Currently 0 (1 standard drink = 0.6 oz pur e alcohol) [facility] Utilities Answer Date Recorded In the past 12 months has [employer], gas, oil, or water [employer] threatened to shut off services in your [...] your living situation today? I have a [facility] place to live 05/07/2023 Sex and [...] times a day. 20 tablet 05/01/2023 05/31/2023 lidocaine viscous (lidocaine) 2 % mucosal [...]
--- OUTSIDE RECORDS SUMMARY | 2023-08-07 07:02 | XMS_ITS | Encounter Summary ---
Author Organization [facility] Address [address] [place] [id number] Care Team Providers Care Metallurgical Laboratory Assistant Name Role Phone Unavailable Primary Care Provider Unavailabl e Encounter Details Date Type Department Care Team (Late st Contact Info) Description 05/01/2023 Orders Only Department of Neurology in [place], [place] [address] [place] [phone] Mohinder Ariza M.D. [address] [place] [phone] Social History Tobacco Use Types Packs/Day Years [...]
--- OUTSIDE RECORDS SUMMARY | 2023-08-07 07:02 | XMS_ITS | Encounter Summary ---
Author Organization [facility] Address [address] [place] [id number] Care Team Providers Care Development Manager Name Role Phone Unavailable Primary Care Provider Unavailabl e Reason for Referral * Outpatient (Routine) - Closed Specialty Diagnoses / Procedures Referred By Randy christiansen Referred To Contact Radiation Oncology Jane Tobar P.A.-C., M.SDaniel [address] [place] [phone] Radha Patterson M.D. [address] [place] [phone] Referral ID Status Reason Start Date Expiration Date Visits Re quested Visits Authorized [id number] Closed 04/29/2023 10/28/2024 1 1 Scheduling Instructions MRI brain at [facility] - ordered by ER physician; please get images and report; please wait to schedule - pending imaging review by ananya SHAH and kit on 05/01/23 Reason for Visit * Outpatient (Routine) - Closed Specialty Diagnoses / Procedures Referred By Randy christiansen Referred To Contact Radiation Oncology Jane Tobar P.A.-C., M.SDaniel [address] [place] [phone] Radha Patterson M.D. [address] [place] [phone] Referral ID Status Reason Start Date Expiration Date Visits Re quested Visits Authorized [id number] Closed 04/29/2023 10/28/2024 1 1 Encounter Details Date Type Department Care Team (Latest Contact Info) Description 05/01/2023 7:41 AM CDT - 05/01/2023 8:29 AM CDT Hospital Encounter Department of Radiation Oncology in [place], [place] [address] [place] [phone] Radha Patterson M.D. 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 30 tablet 06/21/2022 05/02/2023 HYDROcodone-acetaminoph en (NORCO) 5-325 mg [...] a day. 180 tablet 3 06/21/2022 05/02/2023 lidocaine viscous (lidocaine) 2 % mucosal [...] 05/27/2022 Other Patient presented to ED at [facility] for right-sided chest pain. Recommended follow up with cripple chaser for bronchoscopy based on imaging. 05/27/2022 Critical [...] Evaluated by Dr. Tita Driver, Medical Oncology [facility]. Recommended immediate radiation referral for brain [...] Critical Imaging The patient presented to the [facility] ER after experiencing a focal seizure [...] the right hand.Patient was able to complete opjiqc-nn-wwlt, qyym-bg-bcck, and rapid alternating movements, but didneed qpmf-au-loim instructions for kmghcs-xj-qcwe. Recall 3/3 words. Gait is normal. ASSESSMENT [...] revealed at least seven brain lesions. [facility] was also [...] Tobar P.A.-C., M.S. 05/01/2023 1:10 PM CDT [facility] [address] [place] [address] ADDENDUM: I received a reply from Dr. [...] of the service. I reviewed thedocumentation of Jane JERRY Tobar, and agree with the findings and plan. Please see 's detailed note for the patient's initial [...] therapy. 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
--- NOTE | 2023-08-07 07:15 | CRLHL7_ITS ---
For Patients: As a result of the Century Cures Act, medical imaging exams and procedure reports are released immediately into your electronic medical record. You may view this report before your referring provider. If you have questions, please contact your health care provider. Indication: Lung cancer staging Technique: Noncontrast sagittal T1, axial FLAIR, T2 turbo spine echo, and diffusion weighted images. Supplemental post contrast T1 weighted axial and coronal sequences are provided after administration of 15 mL Dotarem gadolinium-based IV contrast. Comparison: MRI 05/28/2023 Findings: There is no evidence of diffusion restriction to suggest acute ischemia. No mass effect or midline shift. No hydrocephalus. The pituitary gland, optic chiasm, pineal gland, and cerebellar tonsils are unremarkable. No osseous lesions. 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 Stable 8 mm enhancing treated metastasis in the left precentral gyrus with associated encephalomalacia (series 13, image 38). Enlargement of enhancing lesion in the left postcentral gyrus that measures 4.5 mm previously 2.5 mm (series 13, image 29). New rim enhancing 7 mm lesion in the left occipital lobe with moderate adjacent vasogenic edema (series 13, image 69). Stable 6 millimeter lesion in the left occipital lobe that demonstrates T1 shortening (series 13, image 94). New 4.7 millimeter lesion in the right lateral leana (series 13, image 108). Enlargement of 8.7 centimeter enhancing lesion in the right superior cerebellum previously 5.1 mm (series 13, image 108) with moderately increased vasogenic edema. Enlargement of 4.4 millimeter enhancing lesion in the right lateral cerebellum previous the 3.6 mm (series 13, image 122). Impression : 1. No evidence of acute intracranial abnormality. 2. New enhancing lesion in the left occipital lobe with moderate edema, new enhancing lesion in the right lateral leana, enlargement of enhancing lesions in the right superior and lateral cerebellum and left postcentral gyrus. 3. Otherwise stable treated metastases. Dictated by Andres Marley MD @ 08/08/2023 2:53:46 PM (Electronically Signed)
== END 2023-08-07 06:59 | disposition home or self-care (01) ==
LOC: MRI 06:58
PROVIDERS: PCP Family Medicine; Visit Provider Internal Medicine Hematology & Oncology
DX: C34.90 Malignant neoplasm of unspecified part of unspecified bronchus or lung (principal)
CPT/HCPCS: 70553; A9575

== ENCOUNTER 2023-09-13 20:04 | Outpatient (CLI) | payer BC, SELFPAY ==
--- OUTSIDE RECORDS SUMMARY | 2023-09-17 00:04 | XMS_ITS | Clinical Summary ---
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 For routine questions regarding patient records, call [phone] during business hours, M-F 8:00 AM - 5:00 PM Central Time. Record requests for emergency care only can be directed to [phone] at any time.[facility] Allergies No known active allergies Medications [...] tablet as needed. After chemo 06/16/2023 Active levETIRAcetam (Keppra) 100 mg/mL solutionIndicatio ns:Secondary Malignant Neoplasm Brain (HCC) Take 30 mL (3,000 mg total) by mouth every morning AND 20 mL (2,000 mg total) every evening. 4500 mL 3 07/28/2023 5 Active lacosamide (Vimpat) 100 mg tablet Take 1 tablet (100 mg total) by mouth 2 (two) times a day. 180 tablet 3 08/19/2023 5 Active dexAMETHasone (Decadron) 4 mg tablet Take 1 tablet (4 mg total) by mouth 2 (two) times a day. for the next seven days. 14 tablet 08/28/2023 Active lacosamide (VIMPAT) 50 mg tablet Take 1 tablet (50 mg total) by mouth 2 (two) times a day. 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 Grieman, Kari A, R.N. 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 Appt Request (Internal Review) 09/12/2023 Orders Only Department of Oncology in [place], [place] [address] [place] [address] Tita Driver M.D. 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 Order Request 09/08/2023 9:40 AM CDT - 09/08/2023 4:31 PM CDT Hospital Encounter Department of Radiation Oncology in [place], [place] [address] [place] [address] Radha Patterson M.D. Grieman, Kari A, R.N. Nicotine Dependence 09/03/2023 1:00 PM CDT Telemedicine Department of Oncology in [place], [place] [address] [place] [address] Dharmesh Alberto M.D., Ph.D. Dominique Aguilar Secondary Malignant Neoplasm Brain (HCC) 09/03/2023 Orders Only Department of Oncology in [place], [place] [address] [place] [address] Dominique Aguilar Secondary Malignant Neoplasm Brain (HCC) (Primary Dx) 09/01/2023 10:00 AM CDT - 09/01/2023 2:37 PM CDT Hospital Encounter Department of Radiation Oncology in [address] [address] Angel Luis Esquivel M.D. Grieman, Kari A R.N. Secondary Malignant Neoplasm Brain (HCC) (Primary Dx) 08/28/2023 10:00 AM CDT - 08/28/2023 5:06 PM CDT Hospital Encounter Department of Radiation Oncology in [address] [address] Angel Luis Esquivel M.D. Retterath, Chelsey A R.N. 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 Secondary Malignant Neoplasm Brain (HCC) 08/26/2023 8:23 AM CDT Hospital Encounter Department of Radiation Oncology in [address] [address] Radha Patterson M.D. 08/25/2023 8:55 AM CDT Hospital Encounter Department of Radiation Oncology in [address] [address] Radha Patterson M.D. 08/22/2023 2:55 PM CDT Hospital Encounter Department of Radiation Oncology in [address] [address] Radha Patterson M.D. 08/22/2023 10:30 AM CDT Comprehensive Visit Department of Neurologic Surgery in [address] [address] Dharmesh Alberto M.D., Ph.D. Secondary Malignant Neoplasm Brain (HCC) 08/19/2023 11:40 AM CDT Telemedicine Department of Neurology in [place], [place] [address] [place] [address] Mohinder Ariza M.D. Secondary Malignant Neoplasm Brain (HCC) (Primary Dx) 08/19/2023 9:31 AM CDT - 08/19/2023 3:20 PM CDT Hospital Encounter Department of Radiation Oncology in [address] [address] Radha Patterson M.D. Secondary Malignant Neoplasm Brain (HCC) 08/19/2023 9:31 AM CDT - 08/19/2023 11:52 AM CDT Hospital Encounter Department of Radiation Oncology in [address] [address] Radha Patterson M.D. 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 Secondary Malignant Neoplasm Brain (HCC) (Primary Dx) 08/14/2023 12:40 PM CDT Ancillary Procedure Department of Radiology in [place], [place] [address] [place] [address] Radha Patterson M.D. Secondary Malignant Neoplasm Brain (HCC) 08/14/2023 Orders Only Department of Oncology in [place], [place] [address] [place] [address] Mohinder Ariza M.D. 08/14/2023 Orders Only Department of Radiation Oncology in [place] [address] [place] [address] Marnie Schultz APRN, C.N.P., D.N.P. Secondary Malignant Neoplasm Brain (HCC) (Primary Dx) 08/14/2023 Orders Only Department of Radiation Oncology in [place], [place] [address] [place] [address] Radha Patterson M.D. Secondary Malignant Neoplasm Brain (HCC) (Primary Dx) 08/05/2023 Orders Only Department of Oncology in [place], [place] [address] [place] [place] [address] Tita Driver M.D. 08/04/2023 Orders Only Department of Oncology in [place], [place] [address] [place] [address] Tita Driver M.D. 07/28/2023 Refill Department of Neurology in [address] [address] Mohinder Ariza M.D. Med Refill 07/09/2023 4:00 PM CDT Telemedicine Department of Neurology in [address] [address] Mohinder Ariza M.D. 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 Discuss medications 06/23/2023 Orders Only Department of Neurology in [place], [place] [address] [place] [address] Edgardo Mccord M.D. 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 Secondary Malignant Neoplasm Brain (HCC); Seizure (HCC) Discharge Disposition: Home or Self Care from [...] drink = 0.6 oz pur e alcohol) [facility] Engiver Answer Date Recorded In the past 12 months has e [employer], gas, oil, or water [employer] threatened to shut off services in your [...] today? I have a [facility] place to live 05/07/2023 Sex and Gender Information Value Date Recorded Sex Assigned at Female 05/07/2023 9:41 AM CDT Gender Identity Female 05/07/2023 9:41 AM CDT Sexual Orientation Straight 05/07/2023 9: 41 AM CDT Last Filed Vital Signs Vital Sign Reading Time Taken Comments Blood Pressure 119/44 08/26/2023 9:24 AM CDT Pulse 57 08/19/2023 8:53 AM CDT Temperature 36.5 ??C (97.7 ??F) 08/26/2023 9:24 AM CD T Respiratory Rate - - Oxygen Saturation - - Inhaled Oxygen Concentration - - Weight 73.3 kg (161 lb 9.6 oz) 08/26/2023 9:24 A M CDT Height 171 cm (5' 7.32) 06/20/2023 9:46 AM CDT Body Mass Index 25.07 06/20/2023 9:46 AM CDT Plan of Treatment [...] Depression Screening (Annual PHQ-2) 02/17/2023 Influenza Vaccine (#1) 2023 3, 04/15/2022, 02/08/2009 COVID-19 Vaccine Completed 11/25/2022, 07/2021, 12/28/2020, Additional history exists Zoster Vaccines Completed 12/02/2022, 05/31/2022 HPV Vaccines Aged Out No longer eligi ble based on patient's age to complete this topic Medical Devices Implanted Type Area Supervisor Grading Device Identifier Shelf Expiration Date Model / Serial / Lot Ankle Implant Ankle Implant Right: Ankle Description:hardware Procedures Procedure Name Priority Date/Time Associated Diagnosis Comments [facility] DAILY TREATMENT INFORMATION Routine 08/26/2023 9:10 AM CDT [facility] 08/25/2023 9:29 AM CDT [facility] DAILY TREATMENT INFORMATION Routine 08/22/2023 3:21 PM CDT [facility] COURSE COMPLETE TREATMENT INFORMATION Routine 08/22/2023 8:14 AM CDT INITIAL RAD ONC TREATMENT PLANNING CT SIMULATION Routine 08/19/2023 10:30 AM CDT Secondary Malignant Neoplasm Brain (HCC) INTERPRETATION OF OUTSIDE MR HEAD RAD - Routine (most inpatients and all outpatients) 08/14/2023 12:39 PM CDT Secondary Malignant Neoplasm Brain (HCC) OUTSIDE MR NEURO Routine 08/07/2023 7:30 AM CDT OUTSIDE NM PET Routine 07/31/2023 8:30 AM CDT EEG ROUTINE - AWAKE AND SLEEP Routine 06/19/2023 2:41 PM CDT Secondary Malignant Neoplasm Brain (HCC) Seizure (HCC) from Last 3 Months Results * Aria Daily Treatment Information (08/26/2023 9:10 AM CDT) Only the most recent of3 resultswithin the time period is included. Course ID [id number] [facility] ARIA Course Start Date 4 11:10 CDT BRUNO ARIA First Treatment Date 4 15:12 CDT BRUNO ARIA Last Treatment Date 4 09:10 CDT BRUNO ARIA Treatment Elapsed Days 4 BRUNO ARIA Reference Point [id number] BRUNO ARIA Dosage Given to Date cGy 2700 BRUNO ARIA Session Dosage Given 900 BRUNO ARIA Plan ID [id number] BRUNO ARIA Fractions Treated to Date 3 BRUNO ARIA Planned Total Fractions 3 BRUNO ARIA Prescribed Dose Per Fraction 900 BRUNO ARIA Prescription Dose in cGy 2700 BRNUO ARIA Plan Primary Reference Point [id number] BRUNO ARIA 08/26/2023 9:10 AM CDT Provider Not In System RADIATION ONCOLOG Y ORDERABLES BRUNO ARIA na * Aria Course Complete Treatment Information (08/22/2023 8:14 AM CDT) Course ID [id number] BRUNO ARIA Course Start Date 01/17/2023 10:38 CDT BRUNO ARIA Course End Date 08/22/2023 08:13 CDT BRUNO ARIA Reference Point [id number] BRUNO ARIA Dosage Given to Date cGy 0 BRUNO ARIA Reference Point [id number] BRUNO ARIA Dosage Given to Date cGy 0 BRUNO ARIA Reference Point dpvTemp BRUNO ARIA Dosage Given to Date cGy 0 BRUNO ARIA Plan ID [id number] BRUNO ARIA Fractions Treated to Date 0 BRUNO ARIA Planned Total Fractions 5 BRUNO ARIA Prescribed Dose Per Fraction 400 BRUNO ARIA Prescription Dose in cGy 2000 BRUNO ARIA Plan Primary Reference Point [id number] BRUNO ARIA Plan ID [id number] BRUNO ARIA Fractions Treated to Date 0 BRUNO ARIA Planned Total Fractions 10 BRUNO ARIA Prescribed Dose Per Fraction 300 BRUNO ARIA Prescription Dose in cGy 3000 BRUNO ARIA Plan Primary Reference Point [id number] BRUNO ARIA Plan ID [id number] BRUNO ARIA Fractions Treated to Date 0 BRUNO ARIA Planned Total Fractions 10 BRUNO ARIA Prescribed Dose Per Fraction 300 BRUNO ARIA Prescription Dose in cGy 3000 BRUNO ARIA Plan Primary Reference Point [id number] BRUNO ARIA Plan ID [id number] BRUNO ARIA Fractions Treated to Date 0 BRUNO ARIA Planned Total Fractions [address] [facility] Prescribed Dose Per Fraction [address] [facility] Prescription Dose in cGy [address] [facility] Plan Primary Reference Point dpvTemp BRUNO ARIA 08/22/2023 8:14 AM CDT Provider Not In System RADIATION ONCOLOG Y ORDERABLES Performing Organization Address City/[facility]/ZIP Co de Phone Number DAMION GOLDSTEIN na * Initial Rad Onc Treatment Planning CT Simulation (08/19/2023 10:30 AM CDT) Narrative BRUNO GLADISA - 08/19/2023 10:30 AM CDT Jessica Petty, RTT ? 08/19/2023 ??9:58 AM Initial Rad Onc Treatment Planning CT Simulation Performed by: Radha Patterson M.D. Authorized by: Radha Patterson M.D. ?? Radha Patterson M.D. RADIATION ONCOLOG Y ORDERABLES Performing Organization Address City/[facility] Co de Phone Number DAMION GOLDSTEIN na * Interpretation of Outside MR Head (08/14/2023 12:39 PM CDT) Anatomical Region Laterality Modality Neuroradiology RST LOS, Neur oradiology ARZ LOS, Neuroradiology FLA LOS, Head, Other N/A Magnetic Resonance Impressions 08/14/2023 4:35 PM CDT Progression of intracranial metastatic disease with new and enlarging lesions, as described. Increased conspicuity of enhancement along the right lateral leana is indeterminate for an additional enlarging metastasis versus a benign vascular structure. Continued imaging surveillance is recommended. Narrative 08/14/2023 4:35 PM CDT EXAM: ??INTERPRETATION OF OUTSIDE MR HEAD without and with intravenous gadolinium contrast dated 08/07/2023 COMPARISON: ??05/28/2023 outside brain MRI FINDINGS: ??New peripherally enhancing metastasis with associated perilesional edema in the left parasagittal parieto-occipital region (se6/im23, se13/im69). Interval enlargement of enhancing left lateral perirolandic metastasis measuring 4-5 mm (se13/im28) (previously 1-2 mm) and 8 mm metastasis in the right cerebellar hemisphere (se13/im109) (previously 5 mm), both with increased perilesional edema. Stable 5 mm partially hemorrhagic metastasis in the left occipital lobe (se6/im17, se13/im94). Stable treated metastasis with associated encephalomalacia and gliosis in the left perirolandic region (se6/im31, se13/im38). Additional new vs more conspicuous region of enhancement along the peripheral parenchymal and leptomeningeal margin of the lateral right leana (se13/im105- 111); this region of enhancement is technically indeterminate but may be benign and vascular in nature. No interval intracranial hemorrhage, additional mass or mass effect, extra-axial fluid collection, hydrocephalus, or new infarct. No new calvarial metastases. Procedure Note Richie Morataya M.D., Ph.D. - 08/14/2023 EXAM: INTERPRETATION OF OUTSIDE MR HEAD without and with intravenousgadolinium contrast dated 08/07/2023 COMPARISON: 05/28/2023 outside brain MRI FINDINGS: New peripherally enhancing metastasis with associatedperilesional edema in the left parasagittal parieto-occipital region(se6/im23, se13/im69). Interval enlargement of enhancing left lateralperirolandic metastasis measuring 4-5 mm (se13/im28) (previously 1-2 mm) and 8 mm metastasis in the rightcerebellar hemisphere (se13/im109) (previously 5 mm), both with increasedperilesional edema. Stable 5 mm partially hemorrhagic metastasis in theleft occipital lobe (se6/im17, se13/im94). Stable treated metastasis with associated encephalomalacia and gliosis inthe left perirolandic region (se6/im31, se13/im38). Additional new vs more conspicuous region of enhancement along theperipheral parenchymal and leptomeningeal margin of the lateral right leana(se13/li863-720); this region of enhancement is technically indeterminatebut may be benign and vascular in nature. No interval intracranial hemorrhage, additional mass or mass effect,extra-axial fluid collection, hydrocephalus, or new infarct. No newcalvarial metastases. IMPRESSION: Progression of intracranial metastatic disease with new and enlarginglesions, as described. Increased conspicuity of enhancement along theright lateral leana is indeterminate for an additional enlarging metastasisversus a benign vascular structure. Continued imaging surveillance is recommended. Radha Patterson M.D. [facility] [place] PROCEDURE S * MR head/brain wo/w con-Outside MR Neuro (08/07/2023 7:30 AM CDT) Narrative [facility] - 08/14/2023 9:38 AM CDT This order has been created and auto-finalized to support the import of outside images. If available, original interpretation can be found on the Media Tab in Chart Review, in Document Viewer, as an image in QREADS or as an Addendum. If a re-interpretation or overread is required please follow defined workflow.?? Provider Not In System IMG MRI PROCEDURE S Performing Organization Address City/[facility] Co de Phone Number [facility] NA * PET CT SKULL BASE TO MID THIGH SUBSEQUENT TREAT-Outside NM Pet (07/31/2023 8:30 AM CDT) 07/31/2023 8:29 AM CDT Narrative [facility] - [...] Heaton M.D. NEUROLOGY ORDERABLES Performing Organization Address City/State/[facility] Co de Phone Number MMODAL NA from Last 3 Months
--- OUTSIDE RECORDS SUMMARY | 2023-09-17 00:05 | XMS_ITS ---
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 Linked Problems Malignant Neoplasm Of Lung S mall Cell Right (HCC)Secondary Malignant Neoplasm Brain (HCC) Treatment Medications No medications scheduled. Past Plans No past plan information found. Radiation Treatments * Plan Last Treated On Elapsed Days Fractions Treated Prescribed Fraction Dose Prescribed Total Dose [id number] 08/26/2023 4 3 of 3 900 cGy 2,700 cGy [id number] 05/08/2023 2 3 of 3 900 cGy 2,700 cGy [id number] 02/03/2023 13 10 of 10 300 cGy 3,000 cG y [id number] 01/27/2023 6 5 of 5 400 cGy 2,000 cG y [id number] 07/02/2022 11 10 of 10 300 cGy 3,000 cGy Reference Point Last Treated On Elapsed Days Session Dose Total Dose [id number] 08/26/2023 4 900 cGy 2,700 cGy [id number] 05/08/2023 2 900 cGy 2,700 cGy [id number] 02/03/2023 13 300 cGy 3,000 cG y [id number] 01/27/2023 6 400 cGy 2,000 cGy [id number] 07/02/2022 11 300 cGy 3,000 cGy
--- OUTSIDE RECORDS SUMMARY | 2023-09-17 00:05 | XMS_ITS | Encounter Summary ---
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 [address] [place] [address] [facility] Referral ID Status Reason Start Date Expiration Date V isits Requested Visits Authorized [id number] Authorized 09/12/2023 03/13/2025 1 1 Encounter Details Date Type Department Care Team (Late st Contact Info) Description 09/12/2023 Orders Only Department of Oncology in [place], [place] [address] [place] [phone] Tita Driver M.D. 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
--- OUTSIDE RECORDS SUMMARY | 2023-09-17 00:05 | XMS_ITS | Encounter Summary ---
Author Organization [facility] Address [address] [place] [address] Care Team Providers Care Veterinary Medicine Scientist Name Role Phone Unavailable Primary Care Provider Unavailabl e Reason for Referral * Outpatient (Routine) - Authorized Specialty Diagnoses / Procedures Referred By Randy t Referred To Contact Radha Patterson M.D. [address] [place] [phone] [facility] Referral ID Status Reason Start Date Expiration Date V isits Requested Visits Authorized [id number] Authorized 09/01/2023 03/02/2025 5 5 Reason for Visit * Outpatient (Routine) - Authorized Specialty Diagnoses / Procedures Referred By Randy christiansen Referred To Contact Radha Patterson M.D. [address] [place] [phone] [facility] Referral ID Status Reason Start Date Expiration Date V isits Requested Visits Authorized [id number] Authorized 09/01/2023 03/02/2025 5 5 Encounter Details Date Type Department Care Team (Latest Contact Info) Description 09/15/2023 10:19 AM CDT - 09/15/2023 10:24 AM CDT Hospital Encounter Department of Radiation Oncology in [place], [place] [address] [place] [phone] Radha Patterson M.D. [address] [place] [phone] Geraldine Chang R.N. 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 I have a [facility] place to live 05/07/2023 Sex [...] mg in the morning. 42 tablet 05/31/2023 dexAMETHasone (Decadron) 4 mg tablet Take 1 tablet (4 mg total) by mouth 2 (two) times a day. for the next seven days. 14 tablet 08/28/2023 ibuprofen (ADVIL,MOTRIN) 200 mg tablet Take 200 mg by mouth 4 (four) times a day as needed. 08/11/2009 lacosamide (Vimpat) 100 mg tablet Take 1 tablet (100 mg total) by mouth 2 (two) times a day. 180 tablet 3 08/19/2023 08/13/2024 levETIRAcetam (Keppra) 100 mg/mL solutionIndications:Sec ondary Malignant Neoplasm Brain (HCC) Take 30 mL (3,000 mg total) by mouth every morning AND 20 mL (2,000 mg total) every evening. 4500 mL 3 07/28/2023 07/27/2024 levothyroxine (SYNTHROID, LEVOTHROID) 100 mcg tablet Take 100 mcg by mouth daily. 04/18/2022 LORazepam (ATIVAN) 1 mg tablet Take 1 mg by mouth as needed. 07/04/2023 omeprazole (PriLOSEC) [address] capsule Take [...] mg tablet as needed. After chemo 06/16/2023 documented as of this encounter Progress Notes * Geraldine Chang RHalima. - 09/15/2023 10:30 AM CDT ASSESSMENT I spoke with patient's , Saúl this morning. Saúl did relay to me that patient is now in hospice care. Saúl did have another call coming in from another health care provider therefore needed to go. Saúl knows to contact our care team for any support/assistance going forward. PLAN Radiation Oncology Waka can be contacted at anytime for any questions or concerns. I offered our full support to Saúl today. Disposition/Recommendation: hospice care . Information/Education: patient/caller able to teach back. Caller agreeable to plan of care: yes. The following references were used: nursing clinical judgement. 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
--- OUTSIDE RECORDS SUMMARY | 2023-09-17 00:05 | XMS_ITS | Encounter Summary ---
Author Organization [facility] Address [address] [place] [address] Care Team Providers Care Vegetable Harvest Worker Name Role Phone Unavailable Primary Care Provider Unavailabl e Encounter Details Date Type Department Care Team (Late st Contact Info) Description 09/09/2023 Clinical Communication Department of Oncology in [place], [place] [address] [place] [phone] Trina Patel RDanielNDaniel [address] [place] [phone] Social History Tobacco Use Types Packs/Day Years Used Date Smoking Tobacco: Every Day Cigarettes Smokeless Tobacco: Never Alcohol Use Standard Drinks/Week Comments Not Currently 0 (1 standard drink = 0.6 oz pur e alcohol) [facility] Utilities Answer Date Recorded In the past 12 months has th e electric, gas, oil, or water [employer] threatened to shut off services in your [...] Telephone Encounter - Lucy Bueno R.N. - 09/10/2023 2:30 PM CDT SUBJECTIVE CHIEF COMPLAINT / REASON FOR CALL Seizure update and steroid taper clarification ASSESSMENT I returned a call to Belkis Hays's to obtain update on seizures, short term memory loss, and dexamethasone. Belkis is a 57 y.o. 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 She completed a 4 fractioned course of 2700 cGy dose from 08/20-08/25. Dr. Ariza saw her on 08/18 for evaluation of brain mets and associated seizures. At that time he increased Vimpat to 100 mg twice daily. She is taking that dose as well as the liquid Keppra 3000 mg in an and 2000 mg in the pm. He also provided a Dexamethasone taper at that time beginning with 2 mg twice daily until 2 weeks of the completion of radiation. Saúl calls to report that she had 2 seizures this past week: 1.) 09/01: Strong event while she was standing. Lasted 20-30 seconds. Bilateral legs shook, blank look on face, did not respond to talking. Patient tells her she can hear during the events but is concentrating to control the seizure so she does not respond. 2.) 09/05: She had same symptoms but only lasted 10-15 seconds and not as strong. She has not had any additional seizures. Memory loss: Saúl explains that since 08/18 he notices worsening. This past week in particular. For example: She turned the water on ( located in the kitchen island) and then walked away to sit on the couch and watch TV. When he asked her about the water she did not recall turning the water on. She has overall become more forgetful. He is monitoring her to make sure she is safe. On 08/27 Belkis was instructed to increase dexamethasone to 4 mg twice daily for 7 days. On 08/31 she was told to decrease to 4 mg in the am and 2 mg in the pm for one week starting on 09/01. 09/07 they were instructed to decrease to 2 mg twice daily. Saúl is hesitant to decrease due to the 2 seizuresmelvina had since the instructions. He would like to clarify what directions he should be following and if she should truly decrease to2 mg in the am and 2 mg in the pm. In addition, he will need a new prescription. He only has 4 pills each of 4 mg and 2 mg tablets. I will review with Dr. Ariza and call Saúl back with instructions. He thanked me for the call. PLAN Review with Dr. Ariza and call Saúl back with how to proceed. Disposition/Recommendation: notified provider and awaiting recommendations. Information/Education: patient/caller able to teach back. Caller agreeable to plan of care: yes. The following references were used: nursing clinical judgement, previous plan of care date: Dr Ariza's note of 08/18, Radiation notes from 08/27, 08/31, and 09/07 , and provider Dr Ariza . 09/09 4 pm Addendum: Per Dr. Ariza, I called Saúl back with the following message: If radiation oncology wants to take the lead on the dexamethasone, let's please let them manage. We don't want to confuse family, everyone does this a little differently. No objection to decrease onmy end. If further decline occurs, we can increase back up and consider repeat imaging and bevacizumab. The memory issue is sadly to a degree expected to worsen over time at this point with the amount ofRT patient received. Saúl agrees with the above and will follow the instructions given on 09/07 for the Dexamethasone taper. He knows to call radiation with questions. He has called the pharmacy and has picked up the Dexamethasone 2 mg tablets and has 60 of them. If things significantly worsen he will call us as well. He will call to arrange the November MRI to be done in [place] and appointment with Dr. Ariza. He verbalized understanding and agreement to this plan. documented in this encounter Plan of Treatment Not on file documented as of this encounter Visit Diagnoses Not on filedocumented in this encounter
--- OUTSIDE RECORDS SUMMARY | 2023-09-17 00:05 | XMS_ITS | Encounter Summary ---
Author Organization [facility] Address [address] [place] [address] Care Team Providers Care Breaking Machine Operator Name Role Phone Unavailable Primary Care Provider Unavailabl e Reason for Visit * Reason Onset Date Comments Order Request 09/09/2023 Encounter Details Date Type Department Care Team (Late st Contact Info) Description 09/09/2023 Clinical Communication Department of Oncology in [place], [place] [address] [place] [phone] Tita Driver M.D. [address] [place] [phone] Order Request Social History Tobacco Use Types Packs/Day Years Used Date Smoking Tobacco: Every Day Cigarettes Smokeless Tobacco: Never Alcohol Use Standard Drinks/Week Comments Not Currently 0 (1 standard drink = 0.6 oz pur e alcohol) [facility] Utilities Answer Date Recorded In the past 12 months has [employer], [employer], oil, or water [employer] threatened to shut off services in your [...] encounter Miscellaneous Notes * Telephone Encounter - Marcelina Garzon - 09/12/2023 10:44 AM CDT 09/11 sent to triage documented in this encounter Plan of Treatment Not on file documented as of this encounter Visit Diagnoses Not on filedocumented in this encounter
--- OUTSIDE RECORDS SUMMARY | 2023-09-17 00:05 | XMS_ITS | Encounter Summary ---
Author Organization [facility] Address [address] [place] [address] Care Team Providers Care Lead Systems Engineer Name Role Phone Unavailable Primary Care Provider Unavailabl e Reason for Visit * Reason Onset Date Comments Appt Request 09/12/2023 Internal Review Encounter Details Date Type Department Care Team (Latest Contact Info) Description 09/12/2023 Clinical Communication Department of Oncology in [place], [place] [address] [place] [phone] Khanh Ibanez, PDanielADaniel-Eric. [address] [place] [phone] Appt Request (Internal Review) Social History Tobacco Use Types Packs/Day Years Used Date Smoking Tobacco: Every Day Cigarettes Smokeless Tobacco: Never Alcohol Use Standard Drinks/Week Comments Not Currently 0 (1 standard drink = 0.6 oz pur e alcohol) [facility] Utilities Answer Date Recorded In the past 12 months has [facility] [employer], gas, oil, or water [email or web address] threatened to shut off services in your [...] your living situation today? I have a [facility] place to live 05/07/2023 Sex and [...]
--- OUTSIDE RECORDS SUMMARY | 2023-09-17 00:05 | XMS_ITS | Referral Summary ---
Author Organization [facility] Address [address] [place] [address] Care Team Providers Care Survey Researcher Name Role Phone Unavailable Primary Care Provider Unavailabl e Source Comments Patient records contain information from all sites at [facility]. For routine questions regarding patient records, call [phone] during business hours, M-F 8:00 AM - 5:00 PM Central Time. Record requests for emergency care only can be directed to [phone] at any time.[facility] Encounters Date Type Department Care Team Description 09/15/2023 10:19 AM CDT - 09/15/2023 10:24 AM CDT Hospital Encounter Department of Radiation Oncology in [place], [place] [address] [place] [phone] Radha Patterson M.D. 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 Appt Request (Internal Review) 09/12/2023 Orders Only Department of Oncology in [place], [place] [address] [place] [phone] Tita Driver M.D. 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 09/09/2023 Clinical Communication Department of Oncology in [place], [place] [address] [place] [address] Tita Driver M.D. Order Request 09/08/2023 9:40 AM CDT - 09/08/2023 4:31 PM CDT Hospital Encounter Department of Radiation Oncology in [address] [phone] Radha Patterson M.D. Grieman, Kari A, R.N. Nicotine Dependence 09/03/2023 1:00 PM CDT Telemedicine Department of Oncology in [place], [place] [address] [place] [address] Dharmesh Alberto M.D., Ph.D. Dominique Aguilar Secondary Malignant Neoplasm Brain (HCC) 09/03/2023 Orders Only Department of Oncology in [place], [place] [address] [place] [address] Dominique Aguilar Secondary Malignant Neoplasm Brain (HCC) (Primary Dx) 09/01/2023 10:00 AM CDT - 09/01/2023 2:37 PM CDT Hospital Encounter Department of Radiation Oncology in [address] [phone] Angel Luis Esquivel M.D. Grieman, Kari A R.NDaniel Secondary Malignant Neoplasm Brain (HCC) (Primary Dx) 08/28/2023 10:00 AM CDT - 08/28/2023 5:06 PM CDT Hospital Encounter Department of Radiation Oncology in [address] [phone] Angel Luis Esquivel M.D. Retterath, Chelsey A, R.N. 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 Secondary Malignant Neoplasm Brain (HCC) 08/26/2023 8:23 AM CDT Hospital Encounter Department of Radiation Oncology in [address] [phone] Radha Patterson M.D. 08/25/2023 8:55 AM CDT Hospital Encounter Department of Radiation Oncology in [address] [phone] Radha Patterson M.D. 08/22/2023 10:30 AM CDT Comprehensive Visit Department of Neurologic Surgery in [address] [phone] Dharmesh Alberto M.D., Ph.D. Secondary Malignant Neoplasm Brain (HCC) 08/22/2023 2:55 PM CDT Hospital Encounter Department of Radiation Oncology in [address] [phone] Radha Patterson M.D. 08/19/2023 9:31 AM CDT - 08/19/2023 11:52 AM CDT Hospital Encounter Department of Radiation Oncology in [address] [phone] Radha Patterson M.D. Retterath, Chelsey A, RDanielN. 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 Secondary Malignant Neoplasm Brain (HCC) 08/19/2023 11:40 AM CDT Telemedicine Department of Neurology in [place], [place] [address] [place] [phone] Mohinder Ariza M.D. Secondary Malignant Neoplasm Brain (HCC) (Primary Dx) 08/19/2023 8:48 AM CDT - 08/19/2023 9:30 AM CDT Hospital Encounter Department of Radiation Oncology in [place], [place] [address] [place] [phone] Radha Patterson M.D. Secondary Malignant Neoplasm Brain (HCC) (Primary Dx) 08/14/2023 Orders Only Department of Oncology in [place], [place] [address] [place] [address] Mohinder Ariza M.D. 08/14/2023 Orders Only Department of Radiation Oncology in [address] [phone] Marnie Schultz APRN, C.N.P., D.N.PDainel Secondary Malignant Neoplasm Brain (HCC) (Primary Dx) 08/14/2023 12:40 PM CDT Ancillary Procedure Department of Radiology in [place], [place] [address] [place] [address] Radha Patterson M.D. Secondary Malignant Neoplasm Brain (HCC) 08/14/2023 Orders Only Department of Radiation Oncology in [place] [address] [place] [address] Radha Patterson M.D. Secondary Malignant Neoplasm Brain (HCC) (Primary Dx) 08/05/2023 Orders Only Department of Oncology in [place], [place] [address] [place] [address] Tita Driver M.D. 08/04/2023 Orders Only Department of Oncology in [place], [place] [address] [place] [address] Tita Driver M.D. 07/28/2023 Refill Department of Neurology in [place], [place] [address] [place] [address] Mohinder Ariza M.D. Med Refill 07/09/2023 4:00 PM CDT Telemedicine Department of Neurology in [address] [phone] Mohinder Ariza M.D. 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 Discuss medications 06/23/2023 Orders Only Department of Neurology in [address] [phone] Edgardo Mccord M.D. 06/20/2023 10:00 AM CDT Comprehensive Visit Department of Neurology in [address] [address] Ej Senior M.B.B.S. 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 Secondary Malignant Neoplasm Brain [...] total) every evening. 4500 mL 3 07/28/2023 Active lacosamide (Vimpat) 100 mg tablet Take 1 tablet (100 mg total) by mouth 2 (two) times a day. 180 tablet 3 08/19/2023 Active dexAMETHasone (Decadron) 4 mg tablet Take [...] drink = 0.6 oz pur e alcohol) [facility] [employer] Answer Date Recorded In the past 12 months has th e [employer], gas, oil, or water [employer] threatened to shut off services in your [...] Date Recorded Employment status Working with temporary [employer] t[employer] 05/07/2023 Housing Stability Answer Date Recorded [...] on file Medical Devices Implanted Type Area Beam Machine Operator Device Identifier Shelf Expiration Date Model / Serial / Lot Ankle Implant Ankle Implant Right: Ankle Description:hardware Procedures Procedure Name Priority Date/Time Associated Diagnosis Comments [facility] Routine 08/26/2023 9:10 AM CDT [facility] DAILY TREATMENT INFORMATION Routine 08/25/2023 9:29 AM CDT [facility] DAILY TREATMENT INFORMATION Routine 08/22/2023 3:21 PM CDT [facility] COURSE COMPLETE TREATMENT INFORMATION Routine 08/22/2023 8:14 [...] time period is included. Course ID [id number] SRT BRUNO ARIA Course Start Date 4 11:10 CDT BRUNO ARIA First Treatment Date 4 15:12 CDT BRUNO ARIA Last Treatment Date 4 09:10 CDT BRUNO ARIA Treatment Elapsed Days 4 BRUNO ARIA Reference Point [id number] BRUNO ARIA Dosage Given to Date cGy 2700 BRUNO ARIA Session Dosage Given 900 BRUNO ARIA Plan ID [id number] BRUNO ARIA Fractions Treated to Date 3 BRUNO ARIA Planned Total Fractions 3 BRUNO ARIA Prescribed Dose Per Fraction 900 BRUNO ARIA Prescription Dose in cGy 2700 BRUNO ARIA Plan Primary Reference Point [id number] BRUNO ARIA 08/26/2023 9:10 AM CDT Provider Not In System RADIATION ONCOLOG Y ORDERABLES BRUNO GLADISGloria na * Aria Course Complete Treatment Information (08/22/2023 8:14 AM CDT) Course ID [id number] BRUNO ARIA Course Start Date 01/17/2023 10:38 CDT BRUNO ARIA Course End Date 08/22/2023 08:13 CDT BRUNO ARIA Reference Point [id number] BRUNO ARIA Dosage Given to Date cGy 0 BRUNO ARIA Reference Point [id number] BRUNO ARIA Dosage Given to Date cGy 0 BRUNO ARIA Reference Point [id number] BRUNO ARIA Dosage Given to Date cGy 0 BRUNO ARIA Plan ID [id number] BRUNO ARIA Fractions Treated to Date 0 BRUNO ARIA Planned Total Fractions 5 BRUNO ARIA Prescribed Dose Per Fraction 400 BRUNO ARIA Prescription Dose in cGy 2000 BRUNO ARIA Plan Primary Reference Point [id number] BRUNO ARIA Plan ID [id number] BRUNO ARIA Fractions Treated to Date 0 BRUNO ARIA Planned Total Fractions 10 BRUNO ARIA Prescribed Dose Per Fraction 300 BRUNO ARIA Prescription Dose in cGy 3000 BRUNO ARIA Plan Primary Reference Point [id number] BRUNO ARIA Plan ID [id number] BRUNO ARIA Fractions Treated to Date 0 BRUNO ARIA Planned Total Fractions 10 BRUNO ARIA Prescribed Dose Per Fraction 300 BRUNO ARIA Prescription Dose in cGy 3000 BRUNO ARIA Plan Primary Reference Point [id number] BRUNO ARIA Plan ID [id number] BRUNO ARIA Fractions Treated to Date 0 BRUNO ARIA Planned Total Fractions 10 BRUNO ARIA Prescribed Dose Per Fraction 300 BRUNO ARIA Prescription Dose in cGy 3000 BRUNO ARIA Plan Primary Reference Point [id number] BRUNO ARIA 08/22/2023 8:14 AM CDT Provider Not In System RADIATION ONCOLOG Y ORDERABLES DAMION GOLDSTEIN na * Initial Rad Onc Treatment Planning CT Simulation (08/19/2023 10:30 AM CDT) [facility] 10[facility]30 AM CDT Jessica Petty R, RTT ? 08/19/2023 ??9:58 AM Initial Rad [...] and leptomeningeal margin of the lateral right leana([id number]); this region of enhancement is technically indeterminatebut [...] imaging surveillance is recommended. Radha Patterson M.D. [facility] MRI PROCEDURE S * MR head/brain wo/w con-Outside MR Neuro (08/07/2023 7:30 AM CDT) Narrative [facility] - 08/14/2023 9:38 AM CDT This order has been created and auto-finalized to support the import of outside images. If available, original interpretation can be found on the Media Tab in Chart Review, in Document Viewer, as an image in QREADS or as an Addendum. If a re-interpretation or overread is required please follow defined workflow.?? Provider Not In System [facility] MRI PROCEDURE S IIMS NA * PET CT SKULL BASE TO MID THIGH SUBSEQUENT TREAT-Outside NM Pet (07/31/2023 8:30 AM CDT) 07/31/2023 8:29 AM CDT Narrative [facility] - 07/31/2023 10:33 AM CDT This order [...] System IMG NM PROCEDURES Performing Organization Address [facility] de Phone Number IIMS NA * EEG [...] Heaton M.D. NEUROLOGY ORDERABLES Performing Organization Address [facility] de Phone Number MMODAL NA from Last 3 Months EFRAIN [place] [phone]
--- OUTSIDE RECORDS SUMMARY | 2023-09-17 00:05 | XMS_ITS ---
Author Organization [facility] Address [address] [place] [address] Care Team Providers Care Hearing Aid Assembly Supervisor Name Role Phone Unavailable Unavailable Unavailable Surgery Details Not on file Complications Check Surgery Details section. Procedure Estimated Blood Loss Check Surgery Details section. Procedure Findings Check Surgery Details section. Procedure Specimens Taken Check Surgery Details section.
--- OUTSIDE RECORDS SUMMARY | 2023-09-17 00:06 | XMS_ITS | Encounter Summary ---
Author Organization [facility] Address [address] [place] [address] Care Team Providers Care Wellness Coach Name Role Phone Unavailable Primary Care Provider Unavailabl e Reason for Referral * Outpatient (Routine) - Authorized Specialty Diagnoses / Procedures Referred By Randy t Referred To Contact Research Diagnoses Secondary Malignant Neoplasm Brain (HCC) Dharmesh Alberto M.D., Ph.D. [address] [place] [phone] [facility] Referral ID Status Reason Start Date Expiration Date V isits Requested Visits Authorized [id number] Authorized 09/03/2023 03/04/2025 1 1 Scheduling Instructions Please schedule with me at 1pm via video visit, thank you! Encounter Details Date Type Department Care Team (Late st Contact Info) Description 09/03/2023 Orders Only Department of Oncology in [place], [place] [address] [place] [phone] Dominique Aguilar [address] [place] [phone] Secondary Malignant Neoplasm Brain (HCC) (Primary Dx) Social History Tobacco Use Types Packs/Day Years Used Date Smoking Tobacco: Every Day Cigarettes Smokeless Tobacco: Never Alcohol Use Standard Drinks/Week Comments Not Currently 0 (1 standard drink = 0.6 oz pur e alcohol) [facility] Utilities Answer Date Recorded In the past [...] your living situation today? I [facility] [employer] [facility] to live 05/07/2023 Sex and Gender Information Value Date Recorded Sex Assigned at Female 05/07/2023 9:41 AM CDT Gender Identity Female 05/07/2023 9:41 AM CDT Sexual Orientation Straight 05/07/2023 9: 41 AM CDT documented as of this encounter Plan of Treatment Scheduled Referrals Name Type Priority Associated Diagnoses Order Schedule Research Director Of Marketing And Promotions office visit (clinic) Outpatient Referral Routine Secondary Malignant Neoplasm Brain (HCC) Expected: 09/04/2023, Expires: 12/03/2024 documented as of this encounter Visit Diagnoses Diagnosis Secondary Malignant Neoplasm Brain (HCC)- Primary documented in this encounter
--- OUTSIDE RECORDS SUMMARY | 2023-09-17 00:06 | XMS_ITS | Encounter Summary ---
Author Organization [facility] Address [address] [place] [id number] Care Team Providers Care Printer Slotter Operator Name Role Phone Unavailable Primary Care Provider Unavailabl e Encounter Details Date Type Department Care Team (Late st Contact Info) Description 08/26/2023 8:23 AM CDT Hospital Encounter Department of Radiation Oncology in [place], [place] [address] [place] [phone] Radha Patterson M.D. [address] [place] [phone] Social History Tobacco Use Types Packs/Day Years Used Date Smoking Tobacco: Every Day Cigarettes Smokeless Tobacco: Never Alcohol Use Standard Drinks/Week Comments Not Currently 0 (1 standard drink = 0.6 oz pur e alcohol) [facility] Utilities Answer Date Recorded In the past 12 months has [employer], gas, oil, or water [employer] threatened to shut off services in your [...] your living situation today? I have a [facility] place to live 05/07/2023 Sex [...]
--- OUTSIDE RECORDS SUMMARY | 2023-09-17 00:06 | XMS_ITS | Encounter Summary ---
Author Organization [facility] Address [address] [place] [address] Care Team Providers Care Power Builder Developer Name Role Phone Unavailable Primary Care Provider Unavailabl e Reason for Referral * Outpatient (Routine) - Closed Specialty Diagnoses / Procedures Referred By Randy t Referred To Contact Angel Luis Esquivel M.D. [address] [place] [phone] [facility] Referral ID Status Reason Start Date Expiration Date Visits Re quested Visits Authorized [id number] Closed 08/28/2023 02/26/2025 1 1 Scheduling Instructions Please schedule on RN calendar at 10 am on 09/01/23 * Outpatient (Routine) - Closed Specialty Diagnoses / Procedures Referred By Randy t Referred To Contact Angel Luis Esquivel M.D. [address] [place] [phone] [facility] Referral ID Status Reason Start Date Expiration Date Visits Re quested Visits Authorized [id number] Closed 08/26/2023 02/24/2025 1 1 Scheduling Instructions Please schedule phone call visit on nurse calendar. Thanks! Reason for Visit * Outpatient (Routine) - Closed Specialty Diagnoses / Procedures Referred By Contkrissy t Referred To Contact Angel Luis Esquivel M.D. [address] [place] [phone] [facility] Region Referral ID Status Reason Start Date Expiration Date Visits Re quested Visits Authorized [id number] Closed 08/26/2023 02/24/2025 1 1 Encounter Details Date Type Department Care Team (Latest Contact Info) Description 08/28/2023 10:00 AM CDT - 08/28/2023 5:06 PM CDT Hospital Encounter Department of Radiation Oncology in [place], [place] [address] [place] [phone] Angel Luis Esquivel M.D. 200 [place] [phone] Belkis Gibson R.N. 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 - 08/28/2023 10:00 AM CDT SUBJECTIVE REASON FOR VISIT Nurse visit to assess symptoms post radiation treatment HISTORY OF PRESENT ILLNESS Belkis Manjarrez is a 57 y.o. 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 Treatment Course: [id number] Plan ID Fractions Dose / Fraction (cGy) Dose Treated (cGy) Dose Planned (cGy) First Treatment Last Treatment Elapsed Days [id number] 900 2700 2700 08/22/2023 08/26/2023 4 Course Summary 08/22/2023 08/26/2023 4 PHYSICAL EXAM General: Alert and oriented in no apparent distress. ASSESSMENT Patient reports that she continues to have headaches despite an increase. She continues to take Oxycodone or Tylenol as needed for discomfort. Patient did not that she had small seizure again yesterday and today. The seizure lasted 20-30 seconds and she experienced shaking of her left hand during the seizure. She denies any other issues or concerns at this time. PLAN Reviewed symptoms with Dr. Esquivel and he recommended increasing her Dexamethasone to 4 mg twice daily for the next 7 days. A prescription was sent to patient's preferred pharmacy. We will call and check in on patient's symptoms on Friday. If symptoms are improved patient can continue with current Dexamethasone taper. -Dexamethasone 4 mg am, 2 mg pm for 1 week - Then decrease to 2 mg twice daily for 1 week - Then decrease to dexamethasone 2 mg daily for 1 week. - Then decrease to dexamethasone 1 mg daily for 1 week. - Then decrease to dexamethasone 0.5 mg daily for 1 week; then stop. We can send in an additional prescription on Friday to complete the taper if needed. Disposition/Recommendation: self-care - appropriate at this time, patient encouraged to call back with questions Information/Education: patient/caller able to teach back Patient agreeable to plan of care: yes The following references were used: provider Dr. 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
--- OUTSIDE RECORDS SUMMARY | 2023-09-17 00:06 | XMS_ITS | Encounter Summary ---
Author Organization [facility] Address [address] [place] [address] Care Team Providers Care Three Dimensional Map Modeler Name Role Phone Unavailable Primary Care Provider Unavailabl e Reason for Referral * Outpatient (Routine) - Closed Specialty Diagnoses / Procedures Referred By Contac t Referred To Contact Angel Luis Esquivel M.D. [address] [place] [phone] [facility] Referral ID Status Reason Start Date Expiration Date Visits Re quested Visits Authorized [id number] Closed 08/26/2023 02/24/2025 1 1 Scheduling Instructions Please schedule phone call visit on nurse calendar. Thanks! * Radiation Therapy (Routine) - Authorized Specialty Diagnoses / Procedures Referred By Contac t Referred To Contact Diagnoses Secondary Malignant Neoplasm Brain (HCC) Procedures Management Visit Radha Patterson M.D. [address] [place] [phone] [facility] Region Referral ID Status Reason Start Date Expiration Date V isits Requested Visits Authorized [id number] Authorized 08/14/2023 08/13/2024 10 10 Reason for Visit * Radiation Therapy (Routine) - Authorized Specialty Diagnoses / Procedures Referred By Contac t Referred To Contact Diagnoses Secondary Malignant Neoplasm Brain (HCC) Procedures Management Visit Radha Patterson M.D. [address] [place] [phone] [facility] Region Referral ID Status Reason Start Date Expiration Date V isits Requested Visits Authorized [id number] Authorized 08/14/2023 08/13/2024 10 10 Encounter Details Date Type Department Care Team (Latest Contact Info) Description 08/26/2023 8:23 AM CDT - 08/26/2023 5:55 PM CDT Hospital Encounter Department of Radiation Oncology in [place], [place] [address] [place] [phone] Angel Luis Esquivel M.D. 200 [place] [phone] Secondary Malignant Neoplasm Brain (HCC) Social History Tobacco Use Types Packs/Day Years Used Date Smoking Tobacco: Every Day Cigarettes Smokeless Tobacco: Never Alcohol Use Standard Drinks/Week Comments Not Currently 0 (1 standard drink = 0.6 oz pur e alcohol) [facility] Utilities Answer Date Recorded In the past 12 months has [employer], gas, oil, or water [employer] threatened to shut off services in your [...] your living situation today? I have a [facility] place to live 05/07/2023 Sex and Gender Information Value Date Recorded Sex Assigned at Female 05/07/2023 9:41 AM CDT Gender Identity Female 05/07/2023 9:41 AM CDT Sexual Orientation Straight 05/07/2023 9: 41 AM CDT documented as of this encounter Last Filed Vital Signs Vital Sign Reading Time Taken Comments Blood Pressure 119/44 08/26/2023 9:24 AM CDT Pulse - - Temperature 36.5 ??C (97.7 ??F) 08/26/2023 9:24 AM CD T Respiratory Rate - - Oxygen Saturation - - Inhaled Oxygen Concentration - - Weight 73.3 kg (161 lb 9.6 oz) 08/26/2023 9:24 A M CDT Height - - Body Mass Index 25.07 06/20/2023 9:46 AM CDT documented in this encounter Medications [...] as of this encounter Progress Notes * Angel Luis Esquivel M.D. - 08/26/2023 9:30 AM CDT SUBJECTIVE CHIEF COMPLAINT/REASON FOR VISIT Evaluation for side effects while receiving radiation treatment for 1. Secondary Malignant Neoplasm Brain (HCC) SUPERVISED BY: Angel Luis Esquivel M.D. ([phone]) HISTORY OF PRESENT ILLNESS Belkis Manjarrez is a 57 y.o. 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 Treatment Course: 4xBrainMtSRT Plan ID Fractions Dose / Fraction (cGy) Dose Treated (cGy) Dose Planned (cGy) First Treatment Last Treatment Elapsed Days [id number] 900 2700 2700 08/22/2023 08/26/2023 4 Course Summary 08/22/2023 08/26/2023 4 Oncology History Malignant Neoplasm Of Lung Small [...] Other Patient presented to ED at [facility] for right-sided chest pain. Recommended follow up with hat and cap drying room attendant for bronchoscopy based on imaging. 05/27/2022 Critical [...] by Dr. Tita Driver, Medical Oncology [facility]. Recommended immediate radiation referral for brain [...] Treatment Details (01/21/2023 - 02/03/2023) Sites: Midline Lung Technique: IMRT Goal: Palliative Dose: 3000 cGy Fraction: 10 01/21/2023 - 01/27/2023 Radiation Therapy Radiation therapy to tumor in right adrenal to a total dose of 2000 cGy in 5 fractions. 02/18/2023 - 07/21/2023 Chemotherapy Lurbinectedin with maintenance atezolizumab 04/10/[address] chest, abdomen, pelvis demonstrated a stable right lower lobe perihilar mass measuring 1.4 x 1.0cm. Resolution of previously demonstrated mediastinal lymphadenopathy. Previously demonstrated 1.7 cm right adrenal metastasis now measured 8 mm. No new metastatic lesion evident. 04/29/2023 Critical Imaging The patient presented to the [facility] ER after experiencing a focal seizure [...] fractions to a dose of 2700 cGy 05/20/[address] Head/Brain impression: 1. No new mass effect or new intracranial bleed compared to prior exam 2. Known hemorrhagic metastasis within the left occipital lobe stable 3. Left parietal encephalomalacia and nonspecific white matter disease, similar to the prior exam 05/28/2023 Critical Imaging MR Brain impression: 1. Improvement in the appearance of the intracranial metastases when compared with 04/29/2023 2. No new enhancing metastatic lesions identified 05/29/2023 Critical Imaging PET/CT impression: There is residual viable malignancy within the patient's known right infrahilar pulmonary lesion and known right adrenal metastasis. Overall appearance is stable compared to CT from March 2023 andthe extent/degree of metabolic activity has improved since the PET-CT from May 2022. No new sitesof disease from skull base to mid thigh 07/31/2023 Critical Imaging PET/CT 1. Chest Lungs: Increased size of a right perihilar mass measuring 4.0 x 2.9 cm, previously 1.8 x 1.6 cm. While the posterior inferior portion of the mass demonstrates decreased uptake with SUV max 3.2, previously 4.7, there is new uptake in the growing portion of the anterior superior mass with SUV max 5.4, previously non avid. Lymph nodes: Increased uptake within right hilar and subcarinal nodes, previously non avid. A rightcentral hilar node measures 12 mm, SUV max 8.0, while a subcarinal node measures 11 mm, SUV max 4.5. 2. New diffuse osseous uptake noted with a generalized heterogeneous and nodular pattern. While this could represent lymphadenopathy and may be seen in the setting of colony-stimulating factors, the appearances most concerning for marrow infiltration of disease. 08/07/2023 Critical Imaging [place] interpretation of outside brain MR IMPRESSION: New peripherally enhancing metastasis with associated perilesional edema in the left parasagittal parieto-occipital region. Interval enlargement of enhancing left lateral perirolandic metastasis measuring 4-5 mm (previously 1-2 mm) and 8 mm metastasis in the right cerebellar hemisphere (previously 5 mm), both with increased perilesional edema. Stable 5 mm partially hemorrhagic metastasis in the left occipital lobe. Stable treated metastasis with associated encephalomalacia and gliosis in the left perirolandic region. Increased conspicuity of enhancement along the right lateral leana is indeterminate for an additional enlarging metastasis versus a benign vascular structure. Continued imaging surveillance is recommended. The patient was seen and examined today with Dr. Esquivel. The patient reports that she had a seizure this morning that lasted 15-20 seconds. She did not loose consciousness but notes that he left leg was shaking. She last seizure was ago but was shorter in duration. She notes left hand shaking and weakness since starting radiation. She has been experiencing headaches the last couple days. She reports that she is taking Oxycodone 4 times daily for chronic pain in her back and chest. The Oxycodone is helpful to her headaches so she hasn't taking Tylenol. She denies nausea. She is currently taking Dexamethasone 2 mg twice daily. PATIENT REPORTED SYMPTOM SCREEN FATIGUE (Scale: 0 = no fatigue; 10 = worst fatigue you can imagine): 5 PAIN (Scale: 0 = no pain; 10 = worst pain you can imagine): 7 OVERALL QUALITY OF LIFE (Scale: 0 = as bad as can be; 10 = as good as can be): 7 OBJECTIVE BP (!) 119/44 (BP Location: Left arm, Patient Position: Sitting, Cuff Size: Regular) Temp 36.5 ??C (Temporal) Wt 73.3 kg BMI 25.07 kg/m?? PHYSICAL EXAMINATION General: Alert and oriented, in no apparent distress. ASSESSMENT / PLAN #1 Metastatic small-cell lung cancer with multiple brain metastases at diagnosis #2 Whole brain radiotherapy, completed on July 02, 2022 #3 Chemotherapy/immunotherapy followed by maintenance immunotherapy, June through December 2022 #4 Radiation therapy to subcarinal and paratracheal metastasis initiated on January 21, 2023; completed on February 03, 2023 #5 Radiation therapy to tumor in the right adrenal initiated on January 21, 2023; completed on February 03, 2023 #6 Stereotactic radiation therapy to the intracranial metastases initiated on May 06, 2023; completed May 08, 2023 #7 Stereotactic radiation therapy to a left parasagittal parieto-occipital brain metastasis initiated on August 24, 2023; completed August 26, 2023 The patient is tolerating radiation treatment with anticipated side effects. Per Dr. Esquivel patient is to increase Dexamethasone to 4 mg in the morning and 2 mg in the evening. We will call on to check in on her symptoms and taper Dexamethasone if symptoms are improved. Patient can continue to take Oxycodone or Tylenol as needed to headaches. Patient will follow up with Dr. Driver on September 15, 2023. She will have a brain MRI on our [facility] in November 2023 followed by an office visit with Dr. Ariza. We will touch base with Dr. Patterson to see if she plans to see her back afterthe MRI in November. She can contact our care team with any questions or concerns. Signed by: Belkis Gibson R.N. 08/26/2023 9:57 AM CDT I saw and evaluated the patient and participated in the rincon portions of the service. I reviewed thedocumentation of Belkis Gibson R.N. and agree with the findings and plan. The patient appears well on exam. Her oral cavity is clear with no signs of thrush. She is here with her Serge. She completed treatment as planned today. She is experiencing some increase in her seizure activity as well as some new left-sided hand weakness since initiation of treatment and mild headache. She is currently on dexamethasone 2 mg twice daily. She will increase dexamethasone to 4 mg in the morning and 2 mg in the afternoon starting today for 1. If she is doing well in 1 week she will reduce her dose as follows per Dr. Ariza: - Dexamethasone 2 mg twice daily for 2 weeks. - Then decrease to dexamethasone 2 mg daily for 1 week. - Then decrease to dexamethasone 1 mg daily for 1 week. - Then decrease to dexamethasone 0.5 mg daily for 1 week; then stop. Nursing staff will check on her progress by phone on . She has follow-up with Dr. Driver and Dr. Ariza as above. We will touch base with Dr. Patterson next week to determine when she would like to see the patient in follow-up. The patient can contact our team at any time with questions or concerns. She verbalized satisfaction with this plan Signed by: Angel Luis Esquivel M.D. 08/26/2023 5:54 PM CDT [facility] [address] [place], [place] [id number] documented in this encounter Miscellaneous Notes * Addendum Note - Radha Gifford C.N.A. - 08/26/2023 9:30 AM CDTEncounter addended by: Radha Gifford C.N.A. on: 08/27/2023 8:04 AM Actions taken: Letter saved documented in this encounter Plan of Treatment Scheduled Orders Name Type Priority Associated Diagnoses Orde r Schedule Management Visit Radiation Oncology Routine Secondary Malignant Neoplasm Brain (HCC) Once for 1 Occurrences starting 08/26/2023 until 08/26/2023 Scheduled Referrals Name Type Priority Associated Diagnoses Orde r Schedule NonF2F phone visit Outpatient Referral Routine Expected: 08/28/2023, Expires: 11/25/2024 documented as of this encounter Visit Diagnoses Diagnosis Secondary Malignant Neoplasm Brain (HCC) documented in this encounter
--- OUTSIDE RECORDS SUMMARY | 2023-09-17 00:06 | XMS_ITS | Encounter Summary ---
Author Organization [facility] Address [address] [place] [address] Care Team Providers Care Pepper Cutter Name Role Phone Unavailable Primary Care Provider Unavailabl e Reason for Referral * Outpatient (Routine) - Authorized Specialty Diagnoses / Procedures Referred By Randy t Referred To Contact Radha Patterson M.D. [address] [place] [phone] [facility] Referral ID Status Reason Start Date Expiration Date V isits Requested Visits Authorized [id number] Authorized 09/01/2023 03/02/2025 5 5 Reason for Visit * Outpatient (Routine) - Authorized Specialty Diagnoses / Procedures Referred By Randy christiansen Referred To Contact Radha Patterson M.D. [address] [place] [phone] [facility] Referral ID Status Reason Start Date Expiration Date V isits Requested Visits Authorized [id number] Authorized 09/01/2023 03/02/2025 5 5 Encounter Details Date Type Department Care Team (Latest Contact Info) Description 09/08/2023 9:40 AM CDT - 09/08/2023 4:31 PM CDT Hospital Encounter Department of Radiation Oncology in [place], [place] [address] [place] [phone] Radha Patterson M.D. [address] [place] [phone] Geraldine Chang R.N. [address] [place] [phone] Nicotine Dependence Social History Tobacco Use Types Packs/Day Years Used Date Smoking Tobacco: Every Day Cigarettes Smokeless Tobacco: Never Alcohol Use Standard Drinks/Week Comments Not Currently 0 (1 standard drink = 0.6 oz pur e alcohol) [facility] Utilities Answer Date Recorded In [...] your living situation today? I have a [facility] place to live 05/07/2023 Sex and [...] Progress Notes * Geraldine Chang R.N. - 09/08/2023 10:00 AM CDT ASSESSMENT I spoke with patient and her , Saúl today. Patient states that on Friday her legs were shaky for 30-40 seconds and then resolved on own. Patient denies seizures. Patient reports that her headaches are quite minimal and not bothersome. Patient denies new symptoms or concerns today. Saúl confirmed that patient has been taking 4 mg of Dexamethasone in the morning and 2 mg of Dexamethasone in the late afternoon for the past 7 days. Patient is scheduled to follow up with Dr. Driver at [facility] on Friday, September 15, 2023. Patient is asking if her follow up with Dr. Noguera be video visit instead. I will ask our desk to inquire about video visit for Dr. Ariza. Patient states that she was called by Oncology [place] regarding follow up on our [facility]. Patient and Saúl plan to discuss Medical Oncology follow up plan with Dr. Driver next Friday. PLAN I discussed continued taper plan with patient and Saúl today: - Decrease to 2 mg twice daily for 1 week starting tomorrow for 1 week. - Then decrease to dexamethasone 2 mg daily for 1 week. - Then decrease to dexamethasone 1 mg daily for 1 week. - Then decrease to dexamethasone 0.5 mg daily for 1 week; then stop I will call patient and Saúl in 1 week to reassess. Patient and Saúl know to call our care team sooner for any questions or concerns. Disposition/Recommendation: self-care - appropriate at this time, patient encouraged to call back with questions. Information/Education: patient/caller able to teach back. Caller agreeable to plan of care: yes. The following references were used: previous plan of care date: 08/26/23 . documented in this encounter Plan of Treatment Scheduled Referrals Name Type Priority Associated Diagnoses Orde r Schedule NonF2F phone visit Outpatient Referral Routine Once for 1 Occurrences starting 09/08/2023 until 09/08/2023 documented as of this encounter Visit Diagnoses Diagnosis Nicotine Dependence documented in this encounter
--- OUTSIDE RECORDS SUMMARY | 2023-09-17 00:06 | XMS_ITS | Encounter Summary ---
Author Organization [facility] Address [address] [place] [address] Care Team Providers Care Powerplant Operator Name Role Phone Unavailable Primary Care Provider Unavailabl e Reason for Visit * Outpatient (Routine) - Authorized Specialty Diagnoses / Procedures Referred By Contkrissy t Referred To Contact Research Diagnoses Secondary Malignant Neoplasm Brain (HCC) Dharmesh Alberto M.D., Ph.D. [address] [place] [phone] [facility] Referral ID Status Reason Start Date Expiration Date V isits Requested Visits Authorized [id number] Authorized 09/03/2023 03/04/2025 1 1 Encounter Details Date Type Department Care Team (Late st Contact Info) Description 09/03/2023 1:00 PM CDT Telemedicine Department of Oncology in [place], [place] [address] [place] [phone] Dharmesh Alberto M.D., Ph.D. [address] [place] [phone] Dominique Aguilar [address] [place] [phone] Secondary Malignant Neoplasm Brain (HCC) Social History Tobacco Use Types Packs/Day Years Used Date Smoking Tobacco: Every Day Cigarettes Smokeless Tobacco: Never Alcohol Use Standard Drinks/Week Comments Not Currently 0 (1 standard drink = 0.6 oz pur e alcohol) [facility] Utilities Answer Date Recorded In the past [...] your living situation today? I have a [facility] place to live 05/07/2023 Sex and [...]
--- OUTSIDE RECORDS SUMMARY | 2023-09-17 00:06 | XMS_ITS | Encounter Summary ---
Author Organization [facility] Address [address] [place] [address] Care Team Providers Care Geospatial Program Management Officer Name Role Phone Unavailable Primary Care Provider Unavailabl e Reason for Referral * Outpatient (Routine) - Closed Specialty Diagnoses / Procedures Referred By Randy christiansen Referred To Contact Angel Luis Esquivel M.D. [address] [place] [phone] [facility] Referral ID Status Reason Start Date Expiration Date Visits Re quested Visits Authorized [id number] Closed 08/28/2023 02/26/2025 1 1 Scheduling Instructions Please schedule on RN calendar at 10 am on 09/01/23 Reason for Visit * Outpatient (Routine) - Closed Specialty Diagnoses / Procedures Referred By Randy christiansen Referred To Contact Angel Luis Esquivel M.D. [address] [place] [phone] [facility] Referral ID Status Reason Start Date Expiration Date Visits Re quested Visits Authorized [id number] Closed 08/28/2023 02/26/2025 1 1 Encounter Details Date Type Department Care Team (Latest Contact Info) Description 09/01/2023 10:00 AM CDT - 09/01/2023 2:37 PM CDT Hospital Encounter Department of Radiation Oncology in [place], [place] [address] [place] [phone] Angel Luis Esquivel M.D. [address] [place] [phone] Geraldine Chang R.N. [address] [place] [phone] Secondary Malignant Neoplasm Brain (HCC) (Primary Dx) Social History Tobacco Use Types Packs/Day Years Used Date Smoking Tobacco: Every Day Cigarettes Smokeless Tobacco: Never Alcohol Use Standard Drinks/Week Comments Not Currently 0 (1 standard drink = 0.6 oz pur e alcohol) [facility] Utilities Answer Date Recorded In the [...] situation today? I have a [facility] place to live 05/07/2023 Sex and [...] Progress Notes * Geraldine Chang R.N. - 09/01/2023 10:00 AM CDT ASSESSMENT I spoke with patient and her , Serge today. Patient and Serge note that patient's headaches have improved the last day or so. They note that patient has not had seizure activity in several days.Patient is resting to help managing fatigue. Patient denies new symptoms or concerns. Patient is currently taking 4 mg of Dexamethasone twice a day. PLAN I have reviewed Dr. Esquivel's recommendations: If symptoms are improved patient can continue [...] mg daily for 1 week; then stop. Serge will be picking up Dexamethasone prescription today. He currently does have supply of 2 mg tablets. Patient will start taper of 4 mg of Dexamethasone in the morning and 2 mg in the pm tomorrow, September 02, 2023 for 7 days. Nursing will call them in 7 days to reassess for next taper down instructions. Radiation Oncology [place] can be contacted at anytime for any questions or concerns. Disposition/Recommendation: self-care - appropriate at this time, patient encouraged to call back with questions. Information/Education: patient/caller able to teach back. Caller agreeable to plan of care: yes. The following references were used: nursing clinical judgement and provider Dr. Esquivel . documented in this encounter Plan of Treatment Scheduled Referrals Name Type Priority Associated Diagnoses Orde r Schedule NonF2F phone visit Outpatient Referral Routine Once for 1 Occurrences starting 09/01/2023 until 09/01/2023 documented as of this encounter Visit Diagnoses Diagnosis Secondary Malignant Neoplasm Brain (HCC)- Primary documented in this encounter
--- OUTSIDE RECORDS SUMMARY | 2023-09-17 00:07 | XMS_ITS | Encounter Summary ---
Author Organization [facility] Address [address] [place] [address] Care Team Providers Care Nutritionists Name Role Phone Unavailable Primary Care Provider Unavailabl e Encounter Details Date Type Department Care Team (Late st Contact Info) Description 08/22/2023 2:55 PM CDT Hospital Encounter Department of Radiation Oncology in [place], [place] [address] [place] [phone] Radha Patterson M.D. [address] [place] [phone] Social History Tobacco Use Types Packs/Day Years Used Date Smoking Tobacco: Every Day Cigarettes Smokeless Tobacco: Never Alcohol Use Standard Drinks/Week Comments Not Currently 0 (1 standard drink = 0.6 oz pur e alcohol) [facility] Utilities Answer Date Recorded In the past 12 months has [employer], gas, oil, or water [employer] threatened to shut off services in your [...]
--- OUTSIDE RECORDS SUMMARY | 2023-09-17 00:07 | XMS_ITS | Encounter Summary ---
Author Organization [facility] Address [address] [place] [address] Care Team Providers Care Vp Of Global Marketing Name Role Phone Unavailable Primary Care Provider Unavailabl e Reason for Referral * Outpatient (Routine) - Closed Specialty Diagnoses / Procedures Referred By Randy christiansen Referred To Contact Neurology Mohinder Ariza M.D. [address] [place] [phone] [facility] Referral ID Status Reason Start Date Expiration Date Visits Re quested Visits Authorized [id number] Closed 08/14/2023 02/12/2025 1 1 Scheduling Instructions Please add on with me at noon on Friday08/19/2023 Encounter Details Date Type Department Care Team (Late st Contact Info) Description 08/14/2023 Orders Only Department of Oncology in [place], [place] [address] [place] [phone] Mohinder Ariza M.D. [address] [place] [phone] Social History Tobacco Use Types Packs/Day Years [...] your living situation today? I have a [facility] place to live 05/07/2023 Sex and Gender Information Value Date Recorded Sex Assigned at Female 05/07/2023 9:41 AM CDT Gender Identity Female 05/07/2023 9:41 AM CDT Sexual Orientation Straight 05/07/2023 9: 41 AM CDT documented as of this encounter Plan of Treatment Scheduled Referrals Name Type Priority Associated Diagnoses Orde r Schedule Neurology office visit (clinic) Outpatient Referral Routine Expected: 08/19/2023 (Approximate), Expires: 11/13/2024 documented as of this encounter Visit Diagnoses Not on filedocumented in this encounter
--- OUTSIDE RECORDS SUMMARY | 2023-09-17 00:07 | XMS_ITS | Encounter Summary ---
Author Organization [facility] Address [address] [place] [address] Care Team Providers Care Guide Alpine Name Role Phone Unavailable Primary Care Provider Unavailabl e Reason for Referral * Outpatient (Routine) - Authorized Specialty Diagnoses / Procedures Referred By Randy christiansen Referred To Contact Neurology Mohinder Ariza M.D. [address] [place] [phone] [facility] Referral ID Status Reason Start Date Expiration Date V isits Requested Visits Authorized [id number] Authorized 08/19/2023 02/17/2025 1 1 * MRI/CAT/PET Scan (Routine) - Pending Review Specialty Diagnoses / Procedures Referred By Randy christiansen Referred To Contact Radiology Diagnoses Secondary Malignant Neoplasm Brain (HCC) Procedures MR Brain Perfusion without and with IV Contrast Mohinder Ariza M.D. [address] [place] [phone] [facility] Referral ID Status Reason Start Date Expiration Date V isits Requested Visits Authorized [id number] Pending Review 08/19/2023 08/18/2024 1 1 * Outpatient (Routine) - Closed Specialty Diagnoses / Procedures Referred By Randy christiansen Referred To Contact Neurological Surgery Diagnoses Secondary Malignant Neoplasm Brain (HCC) Mohinder Ariza M.D. [address] [place] [phone] [facility] Referral ID Status Reason Start Date Expiration Date Visits Re quested Visits Authorized [id number] Closed 08/19/2023 02/17/2025 1 1 Scheduling Instructions Please schedule with Dr. Alberto Reason for Visit * Outpatient (Routine) - Closed Specialty Diagnoses / Procedures Referred By Randy christiansen Referred To Contact Neurology Mohinder Ariza M.D. [address] [place] [phone] [facility] Referral ID Status Reason Start Date Expiration Date Visits Re quested Visits Authorized [id number] Closed 08/14/2023 02/12/2025 1 1 Encounter Details Date Type Department Care Team (Late st Contact Info) Description 08/19/2023 11:40 AM CDT Telemedicine Department of Neurology in [place], [place] [address] [place] [phone] Mohinder Ariza M.D. [address] [place] [phone] Secondary Malignant Neoplasm Brain (HCC) (Primary Dx) Social History Tobacco Use Types Packs/Day Years Used Date Smoking Tobacco: Every Day Cigarettes Smokeless Tobacco: Never Alcohol Use Standard Drinks/Week Comments Not Currently 0 (1 standard drink = 0.6 oz pur e alcohol) [facility] Utilities Answer Date Recorded In the past 12 months has [employer], [employer], oil, or water [employer] threatened to shut off services in your [...] your living situation today? I have a [facility] place to live 05/07/2023 Sex and Gender Information Value Date Recorded Sex Assigned at Female 05/07/2023 9:41 AM CDT Gender Identity Female 05/07/2023 9:41 AM CDT Sexual Orientation Straight 05/07/2023 9: 41 AM CDT documented as of this encounter Progress Notes * Mohinder Ariza M.D. - 08/19/2023 11:40 AM CDT SUBJECTIVE CHIEF COMPLAINT / REASON FOR VISIT Belkis Manjarrez is a 57 y.o. female who presents for evaluation of brain metastases and associated seizures. HISTORY OF PRESENT ILLNESS Oncology History [...] 05/27/2022 Other Patient presented to ED at [facility] for right-sided chest pain. Recommended follow up with digital service engineer for bronchoscopy based on imaging. 05/27/2022 Critical [...] Evaluated by Dr. Tita Driver, Medical Oncology [facility]. Recommended immediate radiation referral for brain metastases. [...] Critical Imaging The patient presented to the [facility] ER after experiencing a focal seizure in [...] marrow infiltration of disease. 08/07/2023 Critical Imaging [place] interpretation of outside brain MR IMPRESSION: New [...] vascular structure. Continued imaging surveillance is recommended. Patient and spouse provided updates: Overall there is marked improvement after initiation of Vimpatand seizure burden is reduced, though some breakthrough events are noted. Patient also had some headache but improved almost immediately after steroid initiation. The following portions of the patient's history [...] motor deficit evident. No incoordination evident. DATA: Recent MRI reviewed. Additional RT is planned. ASSESSMENT / PLAN #1 Secondary Malignant Neoplasm Brain (HCC) #2 Seizure (HCC) Belkis Manjarrez is a 57 y.o. female who presents for evaluation of brain metastases and associated seizures. Patient is planned for additional RT. Seizure control is improved but there are still some events and we will try to optimize Vimpat dosing accordingly. Summary of Plan: - Continue Keppra 3000 mg QAM, 2000 mg QPM. - Increase Vimpat to 100 mg BID. - Continue dexamethasone 2 mg BID for now and until 2 weeks after upcoming RT. - Then decrease to dexamethasone 2 mg daily for 1 week. - Then decrease to dexamethasone 1 mg daily for 1 week. - Then decrease to dexamethasone 0.5 mg daily for 1 week; then stop. - Referral to neurosurgery for consideration of GENNY. Patient and spouse have heard about this modality and would like further opinion. - Repeat MRI in approximately 3 months. - Return with our group after imaging, sooner if needed. documented in this encounter Plan of Treatment Scheduled Orders Name Type Priority Associated Diagnoses Orde r Schedule MR Brain Perfusion without and with IV Contrast Imaging RAD - Routine (most inpatients and all outpatients) Secondary Malignant Neoplasm Brain (HCC) Expected: 11/19/2023 (Approximate), Expires: 11/18/2024 Scheduled Referrals Name Type Priority Associated Diagnoses Order Schedule Neurological Surgery - Brain tumor consult (clinic) Outpatient Referral Routine Secondary Malignant Neoplasm Brain (HCC) Expected: 08/19/2023, Expires: 11/18/2024 Neurology office visit (clinic) Outpatient Referral Routine Expected: 11/19/2023, Expires: 11/18/2024 documented as of this encounter Visit Diagnoses Diagnosis Secondary Malignant Neoplasm Brain (HCC)- Primary documented in this encounter
--- OUTSIDE RECORDS SUMMARY | 2023-09-17 00:07 | XMS_ITS | Encounter Summary ---
Author Organization [facility] Address [address] [place] [address] Care Team Providers Care Billboard Installer Name Role Phone Unavailable Primary Care Provider Unavailabl e Encounter Details Date Type Department Care Team (Late st Contact Info) Description 08/25/2023 8:55 AM CDT Hospital Encounter Department of Radiation Oncology in [place], [place] [address] [place] [phone] Radha Patterson M.D. [address] [place] [phone] Social History Tobacco Use Types Packs/Day Years Used Date Smoking Tobacco: Every Day Cigarettes Smokeless Tobacco: Never Alcohol Use Standard Drinks/Week Comments Not Currently 0 (1 standard drink = 0.6 oz pur e alcohol) [facility] Utilities Answer Date Recorded In the past 12 months has [employer], gas, oil, or water [employer] threatened to shut off services in your [...] your living situation today? I have a [facility] place to live 05/07/2023 Sex and [...]
--- OUTSIDE RECORDS SUMMARY | 2023-09-17 00:07 | XMS_ITS | Encounter Summary ---
Author Organization [facility] Address [address] [place] [address] Care Team Providers Care Contact Center Specialist Name Role Phone Unavailable Primary Care Provider Unavailabl e Reason for Visit * Outpatient (Routine) - Closed Specialty Diagnoses / Procedures Referred By Randy christiansen Referred To Contact Neurological Surgery Diagnoses Secondary Malignant Neoplasm Brain (HCC) Mohinder Ariza M.D. [address] [place] [phone] [facility] Referral ID Status Reason Start Date Expiration Date Visits Re quested Visits Authorized [id number] Closed 08/19/2023 02/17/2025 1 1 Encounter Details Date Type Department Care Team (Latest Contact Info) Description 08/22/2023 10:30 AM CDT Comprehensive Visit Department of Neurologic Surgery in [place], [place] [address] [place] [phone] Dharmesh Alberto M.D., Ph.D. [address] [place] [phone] Secondary Malignant Neoplasm Brain (HCC) Social History [...] your living situation today? I have a [facility] place to live 05/07/2023 Sex [...]
--- OUTSIDE RECORDS SUMMARY | 2023-09-17 00:07 | XMS_ITS | Encounter Summary ---
Author Organization [facility] Address [address] [place] [address] Care Team Providers Care Supersonic Engineer Name Role Phone Unavailable Primary Care Provider Unavailabl e Reason for Visit * Appointment Request (Routine) - Closed Specialty Diagnoses / Procedures Referred By Contac t Referred To Contact Radiation Oncology Diagnoses Secondary Malignant Neoplasm Brain (HCC) Tootie Mccurdy APRN [address] [place] [address] Referral ID Status Reason Start Date Expiration Date Visits Re quested Visits Authorized [id number] Closed 08/14/2023 08/13/2024 1 1 Encounter Details Date Type Department Care Team (Latest Contact Info) Description 08/19/2023 8:48 AM CDT - 08/19/2023 9:30 AM CDT Hospital Encounter Department of Radiation Oncology in [place], [place] [address] [place] [phone] Radha Patterson M.D. [address] [place] [address] Secondary Malignant Neoplasm Brain (HCC) (Primary Dx) Social History Tobacco Use Types Packs/Day Years Used Date Smoking Tobacco: Every Day Cigarettes Smokeless Tobacco: Never Alcohol Use Standard Drinks/Week Comments Not Currently 0 (1 standard drink = 0.6 oz pur e alcohol) [facility] Utilities Answer Date Recorded In the past [...] your living situation today? I have a [facility] place to live 05/07/2023 Sex and Gender Information Value Date Recorded Sex Assigned at Female 05/07/2023 9:41 AM CDT Gender Identity Female 05/07/2023 9:41 AM CDT Sexual Orientation Straight 05/07/2023 9: 41 AM CDT documented as of this encounter Last Filed Vital Signs Vital Sign Reading Time Taken Comments Blood Pressure 133/54 08/19/2023 8:53 AM CDT Pulse 57 08/19/2023 8:53 AM CDT Temperature 36.6 ??C (97.8 ??F) 08/19/2023 8:53 AM CD T Respiratory Rate - - Oxygen Saturation - - Inhaled Oxygen Concentration - - Weight 70.8 kg (156 lb 1.4 oz) 08/19/2023 8:53 A M CDT Height - - Body Mass Index 24.21 06/20/2023 9:46 AM CDT documented in this [...] (four) times a day as needed. 08/11/2009 levETIRAcetam (Keppra) 100 mg/mL solutionIndications:Sec ondary Malignant [...] chemo 06/16/2023 documented as of this encounter Consult Notes * Marnie Schultz APRN, C.N.P., D.N.P. - 08/19/2023 9:00 AM CDT SUBJECTIVE REQUESTING PROVIDER Tootie Mccurdy APRN REASON FOR CONSULT 1. Secondary Malignant Neoplasm Brain (HCC) SUPERVISED BY: Radha Patterson M.D. HISTORY OF PRESENT ILLNESS Belkis Manjarrez is a 57 y.o. female with metastatic small cell lung cancer. She has developed new brain lesions. She presents today for an opinion regarding the role of radiation therapy in the management of her disease. Her oncologic history is as follows: Oncology [...] 05/27/2022 Other Patient presented to ED at [facility] for right-sided chest pain. Recommended follow up with wellness rn for bronchoscopy based on imaging. 05/27/2022 Critical [...] Evaluated by Dr. Tita Driver, Medical Oncology [facility]. Recommended immediate radiation referral for [...] Critical Imaging The patient presented to the [facility] ER after experiencing a focal [...] marrow infiltration of disease. 08/07/2023 Critical Imaging [place] interpretation of outside brain MR IMPRESSION: New [...] vascular structure. Continued imaging surveillance is recommended. INTERVAL HISTORY The patient was seen and examined today with Dr. Patterson. The patient reports okay overall. She recently has developed moderate headaches in her mid forehead. She reports this started about 2-3 weeks ago. She rates them 3-4/10. She feels the right hand finemotor movement has also decreased in function and is more weak. She reports an increase in word-finding difficulty. She has also noticed some blurred vision when trying to read small print on our computer or in a book. She has tried to use readers but has not found them to be helpful. She reports it started maybe 2-4 weeks ago. She was started on 2 mg dexamethasone twice daily late last week and has found an improvement in her headaches but no other neurological symptoms. She has not had a seizure since around August 02. She denies any nausea or vomiting, balance concerns, numbness or tingling in any extremity, any concerns with her left arm bilateral legs, or hearing changes. She does experience occasional lightheadedness associated with her previous seizures which has improved overall. Her ECOG performance status is 1. REVIEW OF SYSTEMS Review of systems was negative except as documented above. OBJECTIVE BP (!) 133/54 (BP Location: Right arm, Patient Position: Sitting, Cuff Size: Regular) Pulse (!) 57 Temp 36.6 ??C (Temporal) Wt 70.8 kg BMI 24.21 kg/m?? PHYSICAL EXAM General: Patient is alert and oriented in no apparent distress. Lymph: No palpable cervical, supraclavicular, infraclavicular, or axillary adenopathy. Lungs: Clear to auscultation bilaterally. Heart: Regular rate and rhythm. Normal S1 and S2. Neurologic: CN II-XII grossly intact. Strength is normal and symmetric in both upper and lower extremities. Sensation is intact to light touch. Gait is normal. Finger to nose and rapid alternating movements were normal. ASSESSMENT / PLAN #1 Metastatic small-cell [...] May 06, 2023; completed May 08, 2023 It was a pleasure to meet with Belkis today. She unfortunately has developed new brain lesions. She did experience occasional headaches that are moderate, along with bilateral blurred vision with the reading small print, difficulty seeing numbers on her computer, and worsening of her right arm and hand weakness. She was started on 2 mg dexamethasone BID late last week. This is helping her headache symptoms but the others remain present. Her exam reveals good strength in her right arm and hand. I do notice some difficulty with fine motor movement of her right hand like grasping a pen and adjusting it. She is able to complete all tasks with her right hand but she does have to focus more. Dr. Ariza was made aware of her new symptoms and is scheduled for a video visit later today. We discussed continuing on 2 mg dexamethasone BID until told otherwise. We discussed the risks, benefits, and alternatives of radiotherapy in this setting. We discussed the recommendation for radiation treatment to 1-3 lesions [address] Patterson will fuse previous radiation treatment plans to ensure there is minimal overlap. I discussed the logistics, as well as, the acute and chronic side effects of treatment in detail. The acute side effects may include, but are not limited to, patchy hair loss, scalp irritation, fatigue, and possible swelling of the brain that could cause new or worsening seizures, nausea/vomiting, or headache. Long- term side effects can be rare and may include, but are not limited to, prolonged hair loss, hearing loss, vision changes/loss, short-term memory deficits, changes in cognition, radiation necrosis, or a very small risk of developing a secondary malignancy. The patient was provided with a written summary of recommendations. Her questions were answered to their verbalized satisfaction. After discussion, the patient verbally stated that she would like to proceed with treatment. She will undergo CT simulation today. We anticipate starting radiation therapy in the next week. Patient seen in collaboration with Dr. Patterosn, please review her attestation for additional information. The patient was provided with our contact information. She was asked to contact us with questions or concerns. She verbally expressed her understanding of the plan. EDUCATION Ready to learn, no apparent learning barriers were identified; learning preferences include listening. Explained diagnosis and treatment plan; patient expressed understanding of the content. CONSENT Discussed the risks, benefits, alternatives, and the necessity of other members of the healthcare team participating in the procedure. All questions answered and consent given. I personally spent 43 minutes in care of the patient today. Time includes both non face to face andface to face patient care. Signed by: Marnie Schultz APRN, C.N.P., D.N.P. 08/19/2023 9:38 AM CDT [facility] [address] [place] [address] Associated attestation - Radha Patterson M.D. - 08/19/2023 1:34 PM CDT RADIATION ONCOLOGY CONSULT I saw and evaluated the patient and participated in the rincon portions of the service. I reviewed thedocumentation of Ms. Marnie SchultzKELVIN and agree with the findings and plan. Please see Ms. Schultz's detailed note for the patient's initial presentation and work-up. Briefly, Ms. Manjarrez is a very pleasant 57 year with a history of extensive stage small cell lung cancer. Shewas initially treated with whole brain radiation therapy in June of 2022 and then received Carbo/etoposide and Atezolizumab for 4 cycles. Maintenance atezolizumab was started in September of 2022. She also has had SRT radiation to the brain (9 lesions) in April of 2023. She know presents with one new lesion and a couple of lesions that have gotten slightly larger. She has responded to steroids. I didget an over-read on the outside MRI and they are calling the right lateral leana area indeterminate.I have reviewed her imaging, operative and pathology reports. On exam, she appears well. Please see Ms. Schultz's note for her detailed exam. We discussed the findings as outlined above and below in this note. We discussed the treatment alternatives including supportive care vs SRT to 1-3 lesions (determined once I fuse with the prior plan). We discussed that I would not treat enlarging lesions as they were recently treated with SRT. We can hope that they represent treatment effect, but I did mention GENNY as a possible salvage therapy.She will discuss this further with Dr. Ariza later today. We discussed the rationale, risks, side effects and goals of radiation therapy. We discussed the acute as well as exterminator helper termite risks, including, but not limited to fatigue, skin erythema, hair loss, memory/cognitive effects and small risks for radiation necrosis. They understood and their questions were answered. She wished to proceed with treatment. We tentatively plan on delivering 2700 in 3 fractions starting this August 21 or August 24. My thanks to Annita Pedroza and [place] for the opportunity to participate in this patient's care. ADDENDUM After full review she has only one new lesion at the left parasagittal parieto- occipital region. I also called her to let her know this and that I will not be present for her treatments, but my colleagues will assist her. She will have follow-up with Dr. Driver. EDUCATION Ready to learn, no apparent learning [...] May 06, 2023; completed May 08, 2023 Signed by: Radha Patterson M.D. 08/19/2023 1:18 PM CDT Pager [phone] documented in this encounter Plan of Treatment Not on file documented as of this encounter Visit Diagnoses Diagnosis Secondary Malignant Neoplasm Brain (HCC)- Primary documented in this encounter
--- OUTSIDE RECORDS SUMMARY | 2023-09-17 00:07 | XMS_ITS | Encounter Summary ---
Author Organization [facility] Address [address] [place] [id number] Care Team Providers Care Surgical Consultant Name Role Phone Unavailable Primary Care Provider Unavailabl e Reason for Visit * Radiation Therapy (Routine) - Closed Specialty Diagnoses / Procedures Referred By Randy t Referred To Contact Diagnoses Secondary Malignant Neoplasm Brain (HCC) Procedures Initial Rad Onc Treatment Planning CT Simulation Radha Patterson M.D. [address] [place] [phone] [facility] Region Referral ID Status Reason Start Date Expiration Date Visits Re quested Visits Authorized [id number] Closed 08/18/2023 08/17/2024 1 1 Encounter Details Date Type Department Care Team (Latest Contact Info) Description 08/19/2023 9:31 AM CDT - 08/19/2023 11:52 AM CDT Hospital Encounter Department of Radiation Oncology in [place], [place] [address] [place] [phone] Radha Patterson M.D. [address] [place] [phone] Belkis Gibson R.N. [address] [place] [phone] Malignant Neoplasm Of Lung Small Cell Right (HCC) (Primary Dx); Secondary Malignant Neoplasm Brain (HCC) Social History Tobacco Use Types Packs/Day Years Used Date Smoking Tobacco: Every Day Cigarettes Smokeless Tobacco: Never Alcohol Use Standard Drinks/Week Comments Not Currently 0 (1 standard drink = 0.6 oz pur e alcohol) [facility] Utilities Answer Date Recorded In the past [...] living situation today? I have a [facility] place to live 05/07/2023 Sex [...] of this encounter Progress Notes * Belkis Gibson R.N. - 08/19/2023 10:00 AM CDT Has patient received IV contrast in the past? Yes History of adverse reaction to the contrast? no History of heart problems (CHF)? No History of kidney problems (current or history of dialysis, single kidney, kidney transplant)? no History of asthma? No Current inhaler use? no Lung assessment. Lungs clear to auscultation. No wheezing or rhonchi. History of diabetes? No Taking Metformin? no If yes, written instructions given: Instructions for taking metformin after an injection of iodinated contrast material, [id number] Central Line: Yes Line Type: IVAD Power Injectable: Yes Power Injectable Identifiers Used: ID Card, Riley Chain, or bracelet and [place] or Outside medical record (Date 07/04/22) Tip Placement Verified: Yes Tip Placement Location: SVC Verified Date: July 04, 2022 Blood Return Verified: Yes Procedural pause conducted by RN and RTT staff to verify: correct patient identity, correct IV contrast protocol and delay time Patient tolerated the procedure well Discharge instructions were given. Patient was provided with bottle of water and told to increase fluids over the next 24-36 hours documented in this encounter Plan of Treatment Not on file documented as of this encounter Visit Diagnoses Diagnosis 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 Administered Medications Inactive Administered Medications - up to 3 most recent administrations Medication Order MAR Action Action Date Dose Rate Site heparin flush 500 Units 500 Units, intra-catheter, As needed, line care, Starting on Fri08/19/23 at 1012, When IVAD accessed and not infusing: When no infusion to maintain patency flush every 7 days following NaCL flush. 5 mL (500 units) of Heparin 100 units/mL to each port/lumen. When IVAD not accessed or infusing: When no infusion to maintain patency flush every 28 days following NaCL flush. 5 mL (500 units) of Heparin 100 units/mL to each port/lumen. Given 08/19/2023 11:40 AM CDT 500 Units iohexoL 300 mg iodine/mL solution 1-200 mL (Omnipaque) 1-200 mL, intravenous, Once in imaging, contrast, Starting on Fri08/19/23 at 0932, For 1 dose, Intraprocedure (RAD), Administer 1-200 mL, dosing per medication reference document and per protocol. Given 08/19/2023 10:28 AM CDT 120 mL sodium chloride 0.9 % injection 10-20 mL 10-20 mL, intra-catheter, As needed, line care, Starting on Fri08/19/23 at 1012, When IVAD accessed and infusing: Flush prior to and following infusion, between multiple consecutive infusions. 10 mL to each port/lumen. Given 08/19/2023 10:12 AM CDT 20 mL sodium chloride 0.9 % injection 10-20 mL 10-20 mL, intra-catheter, As needed, line care, Starting on Fri08/19/23 at 1012, When IVAD accessed and not infusing: When no infusion to maintain patency flush every 7 days followed by heparin flush. 10 mL to each port/lumen. When IVAD not accessed or infusing: When no infusion to maintain patency flush every 28 days followed by heparin flush. 10 mL to each port/lumen. Given 08/19/2023 10:40 AM CDT 10 mL documented in this encounter
--- OUTSIDE RECORDS SUMMARY | 2023-09-17 00:07 | XMS_ITS | Encounter Summary ---
Author Organization [facility] Address [address] [place] [address] Care Team Providers Care Counter Pocket Trimmer Name Role Phone Unavailable Primary Care Provider Unavailabl e Reason for Referral * Radiation Therapy (Routine) - Closed Specialty Diagnoses / Procedures Referred By Yoletteac kuldip Referred To Contact Diagnoses Secondary Malignant Neoplasm Brain (HCC) Procedures Initial Rad Onc Treatment Planning CT Simulation Radha Patterson M.D. [address] [place] [address] [facility] Region Referral ID Status Reason Start Date Expiration Date Visits Re quested Visits Authorized [id number] Closed 08/18/2023 08/17/2024 1 1 Reason for Visit * Radiation Therapy (Routine) - Closed Specialty Diagnoses / Procedures Referred By Randy christiansen Referred To Contact Diagnoses Secondary Malignant Neoplasm Brain (HCC) Procedures Initial Rad Onc Treatment Planning CT Simulation Radha Patterson M.D. [address] [place] [address] [facility] Region Referral ID Status Reason Start Date Expiration Date Visits Re quested Visits Authorized [id number] Closed 08/18/2023 08/17/2024 1 1 Encounter Details Date Type Department Care Team (Latest Contact Info) Description 08/19/2023 9:31 AM CDT - 08/19/2023 3:20 PM CDT Hospital Encounter Department of Radiation Oncology in [address] [phone] Radha Patterson M.D. [address] [place] [address] Secondary Malignant Neoplasm Brain (HCC) Social History Tobacco Use Types Packs/Day Years Used Date Smoking Tobacco: Every Day Cigarettes Smokeless Tobacco: Never Alcohol Use Standard Drinks/Week Comments Not Currently 0 (1 standard drink = 0.6 oz pur e alcohol) [facility] Utilities Answer Date Recorded In the past 12 months has e [employer], gas, oil, or water [employer] threatened to shut off services in your [...] your living situation today? I have a [facility] place to live 05/07/2023 Sex and [...] chemo 06/16/2023 documented as of this encounter Procedure Notes * IldefonsorichJessica trinh, RTT - 08/19/2023 10:30 AM CDTAssociated Order(s): Initial Rad Onc Treatment [...] to facilitate marking of isocenter. Area scanned:Head Contrast used for the simulation procedure: IV Patient position:head first supine Custom immobilization: SRS mask (2 part mask) Motion management: None [...] imaging was appropriate and completed without incident. Fulfillment Mail Clerk use:No Associated attestation - Radha Patterson M.D. - 08/19/2023 1:08 PM CDT I was present during all critical and rincon portions of the procedure(s) and immediately available [facility] services the entire duration. See note for [...] CT Simulation (08/19/2023 10:30 AM CDT) Narrative DAMION GOLDSTEIN - 08/19/2023 10:30 AM CDT Jessica Petty, RTT ? 08/19/2023 ??9:58 AM Initial Rad Onc Treatment Planning CT Simulation Performed by: Radha Patterson M.D. Authorized by: Radha Patterson M.D. ?? Radha Patterson M.D. RADIATION ONCOLOG Y ORDERABLES DAMION GOLDSTEIN na documented in this encounter Visit Diagnoses Diagnosis Secondary Malignant Neoplasm Brain (HCC) documented in this encounter
--- OUTSIDE RECORDS SUMMARY | 2023-09-17 00:08 | XMS_ITS | Encounter Summary ---
Author Organization [facility] Address [address] [place] [address] Care Team Providers Care Assessment Clinician Name Role Phone Unavailable Primary Care Provider Unavailabl e Encounter Details Date Type Department Care Team (Late st Contact Info) Description 08/05/2023 Orders Only Department of Oncology in [place], [place] [address] [place] [phone] Tita Driver M.D. [address] [place] [phone] Social History Tobacco Use Types Packs/Day Years Used Date Smoking Tobacco: Every Day Cigarettes Smokeless Tobacco: Never Alcohol Use Standard Drinks/Week Comments Not Currently 0 (1 standard drink = 0.6 oz pur e alcohol) [facility] Utilities Answer Date Recorded In the past 12 months has [facility] [employer], gas, oil, or water [employer] threatened to shut off services in your [...]
--- OUTSIDE RECORDS SUMMARY | 2023-09-17 00:08 | XMS_ITS | Encounter Summary ---
Author Organization [facility] Address [address] [place] [address] Care Team Providers Care Chief Wharfinger Name Role Phone Unavailable Primary Care Provider Unavailabl e Reason for Visit * Outpatient (Routine) - Closed Specialty Diagnoses / Procedures Referred By Randy christiansen Referred To Contact Neurology Mohinder Ariza M.D. [address] [place] [phone] [facility] Referral ID Status Reason Start Date Expiration Date Visits Re quested Visits Authorized [id number] Closed 06/21/2022 06/20/2025 1 1 Encounter Details Date Type Department Care Team (Late st Contact Info) Description 07/09/2023 4:00 PM CDT Telemedicine Department of Neurology in [place], [place] [address] [place] [phone] Mohinder Ariza M.D. 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 Recommended follow up with oil lease buyer for bronchoscopy based on imaging. 05/27/2022 Critical [...] Evaluated by Dr. Tita Driver, Medical Oncology [facility]. Recommended immediate radiation referral for brain metastases. [...] Critical Imaging The patient presented to the [facility] ER after experiencing a focal seizure in [...] locally, sooner if needed. ADDENDUM: We called [facility] and called family again. There is no [...]
--- OUTSIDE RECORDS SUMMARY | 2023-09-17 00:08 | XMS_ITS | Encounter Summary ---
Author Organization [facility] Address [address] [place] [address] Care Team Providers Care Real Estate Accountant Name Role Phone Unavailable Primary Care Provider Unavailabl e Encounter Details Date Type Department Care Team (Latest Contact Info) Description 07/07/2023 1:15 PM CDT Clinical Communication Virtual Review in [place], [place] [address] [place] [phone] Social History Tobacco Use Types Packs/Day Years Used Date Smoking Tobacco: Every Day Cigarettes Smokeless Tobacco: Never Alcohol Use Standard Drinks/Week Comments Not Currently 0 (1 standard drink = 0.6 oz pur e alcohol) [facility] Utilities Answer Date Recorded In the [...] your living situation today? I have a [facility] place to live 05/07/2023 Sex and Gender [...]
--- OUTSIDE RECORDS SUMMARY | 2023-09-17 00:08 | XMS_ITS | Encounter Summary ---
Author Organization [facility] Address [address] [place] [address] Care Team Providers Care Timekeeper Name Role Phone Unavailable Primary Care Provider Unavailabl e Reason for Referral * Radiation Therapy (Routine) - Closed Specialty Diagnoses / Procedures Referred By Contac kuldip Referred To Contact Diagnoses Secondary Malignant Neoplasm Brain (HCC) Procedures Initial Rad Onc Treatment Planning CT Simulation Radha Patterson M.D. [address] [place] [phone] [facility] Region Referral ID Status Reason Start Date Expiration Date Visits Re quested Visits Authorized [id number] Closed 08/18/2023 08/17/2024 1 1 * Radiation Therapy (Routine) - Authorized Specialty Diagnoses / Procedures Referred By Randy christiansen Referred To Contact Diagnoses Secondary Malignant Neoplasm Brain (HCC) Procedures Management Visit Radha Patterson M.D. 200 [place] [address] [facility] Region Referral ID Status Reason Start Date Expiration Date V isits Requested Visits Authorized [id number] Authorized 08/14/2023 08/13/2024 10 10 * Radiation Therapy (Routine) - Authorized Specialty Diagnoses / Procedures Referred By Contac t Referred To Contact Diagnoses Secondary Malignant Neoplasm Brain (HCC) Procedures Prior Auth Rad Tx PA STEREOTACTIC BODY RADTN DEL PA IMRT RADIOTHERAPY PLAN SRT Radha Patterson M.D. 200 [place] [address] [facility] [place] [address] [place] [phone] Referral ID Status Reason Start Date Expiration Date V isits Requested Visits Authorized [id number] Authorized 08/19/2023 02/17/2024 3 3 Encounter Details Date Type Department Care Team (Late st Contact Info) Description 08/14/2023 Orders Only Department of Radiation Oncology in [address] [phone] Marnie Schultz APRN, C.N.P., D.N.P. 200 [place] [phone] Secondary Malignant Neoplasm Brain (HCC) (Primary Dx) Social History Tobacco Use Types Packs/Day Years Used Date Smoking Tobacco: Every Day Cigarettes Smokeless Tobacco: Never Alcohol Use Standard Drinks/Week Comments Not Currently 0 (1 standard drink = 0.6 oz pur e alcohol) [facility] Utilities Answer Date Recorded In the past 12 months has e [employer], gas, oil, or water [employer] threatened to shut off services in your [...] your living situation today? I have a [facility] place to live 05/07/2023 Sex and Gender Information Value Date Recorded Sex Assigned at Female 05/07/2023 9:41 AM CDT Gender Identity Female 05/07/2023 9:41 AM CDT Sexual Orientation Straight 05/07/2023 9: 41 AM CDT documented as of this encounter Plan of Treatment Scheduled Orders Name Type Priority Associated Diagnoses Order Schedule Prior Auth Rad Tx Radiation Oncology Routine Secondary Malignant Neoplasm Brain (HCC) Ordered: 08/14/2023 Management Visit Radiation Oncology Routine Secondary Malignant Neoplasm Brain (HCC) 10 Occurrences starting 08/14/2023 until 11/13/2024 documented as of this encounter Results * Initial Rad Onc Treatment Planning CT Simulation (08/19/2023 10:30 AM CDT) Narrative ADMION GOLDSTEIN - 08/19/2023 10:30 AM CDT Jessica Petty, RTT ? 08/19/2023 ??9:58 AM Initial Rad Onc Treatment Planning CT Simulation Performed by: Radha Patterson M.D. Authorized by: Radha Patterson M.D. ?? Radha Patterson M.D. RADIATION ONCOLOG Y ORDERABLES DAMION contreras documented in this encounter Visit Diagnoses Diagnosis Secondary Malignant Neoplasm Brain (HCC)- Primary Secondary Malignant Neoplasm Brain (HCC) documented in this encounter
--- OUTSIDE RECORDS SUMMARY | 2023-09-17 00:08 | XMS_ITS | Encounter Summary ---
Author Organization [facility] Address [address] [place] [address] Care Team Providers Care Head Of Stock Name Role Phone Unavailable Primary Care Provider Unavailabl e Reason for Referral * Outpatient (Routine) - Authorized Specialty Diagnoses / Procedures Referred By Randy t Referred To Contact Oncology Tita Driver M.D. [address] [place] [address] [facility] Referral ID Status Reason Start Date Expiration Date V isits Requested Visits Authorized [id number] Authorized 08/04/2023 02/02/2025 1 1 Encounter Details Date Type Department Care Team (Late st Contact Info) Description 08/04/2023 Orders Only Department of Oncology in [place], [place] 404 [place] [phone] Tita Driver M.D. [address] [place] [phone] Social History Tobacco Use Types Packs/Day Years Used Date Smoking Tobacco: Every Day Cigarettes Smokeless Tobacco: Never Alcohol Use Standard Drinks/Week Comments Not Currently 0 (1 standard drink = 0.6 oz pur e alcohol) [facility] Utilities Answer Date Recorded In the past 12 months has [employer], gas, oil, or water company threatened to [...] your living situation today? [facility] 05/07/2023 Sex and [...]
--- OUTSIDE RECORDS SUMMARY | 2023-09-17 00:08 | XMS_ITS | Encounter Summary ---
Author Organization [facility] Address [address] [place] [address] Care Team Providers Care Bleacher [employer] Name Role Phone Unavailable Primary Care Provider Unavailabl e Reason for Visit * Reason Comments Med Refill Encounter Details Date Type Department Care Team ([facility] st Contact Info) Description 07/28/2023 Refill Department of Neurology in [place], [place] [address] [place] [phone] Mohinder Ariza M.D. [address] [place] [phone] Med Refill Social History Tobacco Use Types Packs/Day Years Used Date Smoking Tobacco: Every Day Cigarettes Smokeless Tobacco: Never Alcohol Use Standard Drinks/Week Comments Not Currently 0 (1 standard drink = 0.6 oz pur e alcohol) [facility] Utilities Answer Date Recorded In the past 12 months has [employer], gas, oil, or water [employer] threatened to shut off services in your [...] your living situation today? I have a [facility] place to live 05/07/2023 Sex [...]
--- OUTSIDE RECORDS SUMMARY | 2023-09-17 00:08 | XMS_ITS | Encounter Summary ---
Author Organization [facility] Address [address] [place] [address] Care Team Providers Care Latin Teacher Name Role Phone Unavailable Primary Care Provider Unavailabl e Reason for Visit * Reason Onset Date Comments Discuss medications 06/23/2023 Encounter Details Date Type Department Care Team (Latest Contact Info) Description 06/23/2023 Clinical Communication Department of Neurology in [place], [place] [address] [place] [phone] Mohinder Ariza M.D. [address] [place] [address] Discuss medications Social History Tobacco Use Types Packs/Day Years Used Date Smoking Tobacco: Every Day Cigarettes Smokeless Tobacco: Never Alcohol Use Standard Drinks/Week Comments Not Currently 0 (1 standard drink = 0.6 oz pur e alcohol) [facility] Utilities Answer Date Recorded In the past 12 months has [facility] [employer], gas, oil, or water [employer] threatened to shut off services in your [...] your living situation today? I have a [facility] place to live 05/07/2023 Sex and [...] level, and EKG (to document the baseline [place] interval before using lacosamide). Following this, Dr. [...]
--- OUTSIDE RECORDS SUMMARY | 2023-09-17 00:08 | XMS_ITS | Encounter Summary ---
Author Organization [facility] Address [address] [place] [address] Care Team Providers Care Patient Companion Name Role Phone Unavailable Primary Care Provider Unavailabl e Encounter Details Date Type Department Care Team (Late st Contact Info) Description 08/14/2023 Orders Only Department of Radiation Oncology in [place], [place] [address] [place] [phone] Radha Patterson M.D. [address] [place] [phone] Secondary Malignant Neoplasm Brain (HCC) (Primary Dx) Social History Tobacco Use Types Packs/Day Years Used Date Smoking Tobacco: Every Day Cigarettes Smokeless Tobacco: Never Alcohol Use Standard Drinks/Week Comments Not Currently 0 (1 standard drink = 0.6 oz pur e alcohol) [facility] Utilities Answer Date Recorded In the past 12 months has [facility] [employer], gas, oil, or water [employer] threatened to shut off services in your [...] Results * Interpretation of Outside MR Head (08/14/2023 12:39 PM CDT) Anatomical Region Laterality Modality Neuroradiology RST LOS, Neur oradiology [facility], Neuroradiology FLA LOS, Head, Other N/A Magnetic [...] and leptomeningeal margin of the lateral right leana([id number]); this region of enhancement is technically indeterminatebut [...] structure. Continued imaging surveillance is recommended. Radha EVANS MRI PROCEDURE S documented in this encounter Visit Diagnoses Diagnosis Secondary Malignant Neoplasm Brain (HCC)- Primary Secondary Malignant Neoplasm Brain (HCC) documented in this encounter
--- OUTSIDE RECORDS SUMMARY | 2023-09-17 00:08 | XMS_ITS | Encounter Summary ---
Author Organization [facility] Address [address] [place] [address] Care Team Providers Care Director Of Content And Programming Name Role Phone Unavailable Primary Care Provider Unavailabl e Encounter Details Date Type Department Care Team (Latest Contact Info) Description 08/14/2023 12:40 PM CDT Ancillary Procedure Department of Radiology in [place], [place] [address] [place] [address] Radha Patterson M.D. [address] [place] [phone] Secondary Malignant Neoplasm Brain (HCC) Social History Tobacco Use Types Packs/Day Years Used Date Smoking Tobacco: Every Day Cigarettes Smokeless Tobacco: Never Alcohol Use Standard Drinks/Week Comments Not Currently 0 (1 standard drink = 0.6 oz pur e alcohol) [facility] Utilities Answer Date Recorded In the past 12 months has [facility] [employer], gas, oil, or water [employer] threatened to shut off services in your [...] and leptomeningeal margin of the lateral right leana([id number]); this region of enhancement is technically indeterminatebut [...]
--- OUTSIDE RECORDS SUMMARY | 2023-09-17 00:09 | XMS_ITS | Encounter Summary ---
Author Organization [facility] Address [address] [place] [address] Care Team Providers Care Legal Records Manager Name Role Phone Unavailable Primary Care Provider Unavailabl e Reason for Visit * Reason Onset Date Comments Communication 06/16/2023 ? Seizure Encounter Details Date Type Department Care Team (Latest Contact Info) Description 06/16/2023 Clinical Communication Department of Neurology in [place], [place] [address] [place] [phone] Mohinder Ariza M.D. [address] [place] [address] Communication (? Seizure) Social History Tobacco Use Types Packs/Day Years Used Date Smoking Tobacco: Every Day Cigarettes Smokeless Tobacco: Never Alcohol Use Standard Drinks/Week Comments Not Currently 0 (1 standard drink = 0.6 oz pur e alcohol) [facility] Utilities Answer Date Recorded In the past [address] [facility] [employer], gas, oil, or water [employer] threatened to shut off services in your [...]
--- OUTSIDE RECORDS SUMMARY | 2023-09-17 00:09 | XMS_ITS | Encounter Summary ---
Author Organization [facility] Address [address] [place] [address] Care Team Providers Care Practice Billing Associate Name Role Phone Unavailable Primary Care Provider Unavailabl e Encounter Details Date Type Department Care Team (Late st Contact Info) Description 06/23/2023 Orders Only Department of Neurology in [place], [place] [address] [place] [phone] Edgardo Mccord M.D. [address] [place] [address] Social History Tobacco Use Types Packs/Day Years [...] living situation today? I have a [facility] place to live 05/07/2023 [...]
--- OUTSIDE RECORDS SUMMARY | 2023-09-17 00:09 | XMS_ITS | Encounter Summary ---
Author Organization [facility] Address [address] [place] [address] Care Team Providers Care Hot Metal Crane Operator Name Role Phone Unavailable Primary Care Provider Unavailabl e Reason for Visit * Reason Onset Date Comments levetiracetam 05/02/2023 Encounter Details Date Type Department Care Team (Late st Contact Info) Description 05/02/2023 Clinical Communication Department of Neurology in [place], [place] [address] [place] [phone] Mohinder Ariza M.D. [address] [place] [phone] levetiracetam Social History Tobacco Use Types Packs/Day Years Used Date Smoking Tobacco: Every Day Cigarettes Smokeless Tobacco: Never Alcohol Use Standard Drinks/Week Comments Not Currently 0 (1 standard drink = 0.6 oz pur e alcohol) [facility] Utilities Answer Date Recorded In the past 12 months has [facility] [employer], gas, oil, or water [employer] threatened to shut off services in your [...] your living situation today? I have a [facility] place to live 05/07/2023 Sex and [...]
--- OUTSIDE RECORDS SUMMARY | 2023-09-17 00:09 | XMS_ITS | Encounter Summary ---
Author Organization [facility] Address [address] [place] [address] Care Team Providers Care Accounts Supervisor Name Role Phone Unavailable Primary Care Provider Unavailabl e Encounter Details Date Type Department Care Team ([facility] st Contact Info) Description 05/22/2023 Orders Only Department of Neurology in [place], [place] [address] [place] [phone] Darion Heaton M.D. [address] [place] [phone] Social History Tobacco Use Types Packs/Day Years Used Date Smoking Tobacco: Every Day Cigarettes Smokeless Tobacco: Never Alcohol Use Standard Drinks/Week Comments Not Currently 0 (1 standard drink = 0.6 oz pur e alcohol) [facility] Utilities Answer Date Recorded In the past 12 months has e [employer], gas, oil, or water [employer] threatened to shut off services in your [...] Date Recorded Employment status Working with temporary [employer] 05/07/2023 Housing Stability Answer Date Recorded [...]
--- OUTSIDE RECORDS SUMMARY | 2023-09-17 00:09 | XMS_ITS | Encounter Summary ---
Author Organization [facility] Address [address] [place] [address] Care Team Providers Care Research Agricultural Engineer Name Role Phone Unavailable Primary Care Provider Unavailabl e Reason for Referral * Outpatient (Routine) - Closed Specialty Diagnoses / Procedures Referred By Randy christiansen Referred To Contact Diagnoses Secondary Malignant Neoplasm Brain (HCC) Seizure (HCC) Procedures EEG routine - awake and sleep Darion Heaton M.D. 200 [place] [address] [facility] Referral ID Status Reason Start Date Expiration Date Visits Re quested Visits Authorized [id number] Closed 05/23/2023 05/22/2024 1 1 Reason for Visit * Outpatient (Routine) - Closed Specialty Diagnoses / Procedures Referred By Randy christiansen Referred To Contact Diagnoses Secondary Malignant Neoplasm Brain (HCC) Seizure (HCC) Procedures EEG routine - awake and sleep Darion Heaton M.D. 200 [place] [address] [facility] Referral ID Status Reason Start Date Expiration Date Visits Re quested Visits Authorized [id number] Closed 05/23/2023 05/22/2024 1 1 Encounter Details Date Type Department Care Team (Latest Contact Info) Description 06/19/2023 1:27 PM CDT - 06/19/2023 11:59 PM CDT Hospital Encounter Department of Neurology in [place], [place] [address] [place] [phone] Dar[place] [address] Secondary Malignant Neoplasm Brain (HCC); Seizure (HCC) Discharge Disposition: Home or Self Care Social History Tobacco Use Types Packs/Day Years Used Date Smoking Tobacco: Every Day Cigarettes Smokeless Tobacco: Never Alcohol Use Standard Drinks/Week Comments Not Currently 0 (1 standard drink = 0.6 oz pur e alcohol) [facility] Utilities Answer Date Recorded In the past 12 months has th e [employer], gas, oil, or water [employer] threatened to shut off services in [...] your living situation today? I have a [facility] place to live 05/07/2023 Sex and [...]
--- OUTSIDE RECORDS SUMMARY | 2023-09-17 00:09 | XMS_ITS | Continuity of Care Document ---
Author Organization [facility] Address [address] [place] [address] Care Team Providers Care Plug Cutting Machine Operator Name Role Phone [facility] Unavailable Unav ailable Procedures Procedure Date INJECT SACROILIAC JOINT Inj for sacroiliac jt anesth Inj for sacroiliac jt anesth INJ FORAMEN EPIDURAL L/S INJ FORAMEN EPIDURAL L/S Inj for sacroiliac jt anesth Advance Directives Directive Yes / No Effective Date File Name No Information Encounters Encounter Description Practice Location Reason(s) For Visit Diagnoses Date Provider Providers Copied on Encounter [facility], [address] [place] [address], [id number], [facility] No Information [facility]. [address] [place] [address], [id number], . tel:[phone] Referring Provider: Renetta Bush, [address] [place] [address], [address]. tel:[phone] [facility], [address] [place] [address], [id number], [facility] No Information [facility]. [address] [place] [address], [id number], . tel:[phone] Referring Provider: Renetta Bush, [address] [place] [address], [address]. tel:[phone] [facility], [address] [place], [place], [id number], [facility] [facility] No Information [facility]. [address] [place], [place], [id number], . tel:[phone] Referring Provider: Beth Vick, [address] [place], [address]. tel:[phone] [facility], [address] [place], [place], [id number], [facility] No Information [facility]. [address] [place], [place], [id number], . tel:[phone] Referring Provider: Miles Jiménez, [address] [place], [address]. tel:[phone] Family History Family Member Type Diagnosis Age [...]
--- OUTSIDE RECORDS SUMMARY | 2023-09-17 00:09 | XMS_ITS | Continuity of Care Document ---
Author Organization [facility] enter Address [address] [place] [phone] Phone Care Team Providers Care Accountant Name Role Phone [facility] Unavailable Unava ilable Procedures Procedure Date INJECT SACROILIAC JOINT INJECT SACROILIAC JOINT INJECT SACROILIAC JOINT Inj for sacroiliac jt anesth Inj for sacroiliac jt anesth INJ FORAMEN EPIDURAL L/S INJ FORAMEN EPIDURAL L/S Advance Directives Directive Yes / No Effective Date File Name No Information Encounters Encounter Description Practice Location Reason(s) For Visit Diagnoses Date Provider Providers Copied on Encounter [facility], [address] [place] [address], [id number], tel:[phone] [place] [address] No Information 3 [facility]. [address] [place] [address], [id number], [place]. tel:[phone] Referring Provider: Renetta Bush, [address] [facility] [place], [address] . tel:[phone] [facility], [address] [place] [address], [id number], tel:[phone] [place] [address] No Information 3 [facility]. [address] [place] [address], [id number], . tel:[phone] Referring Provider: Miles Rey, [address] [place], [address] . tel:[phone] [facility], [address] [place] [address], [id number], tel:[phone] [facility] No Information 3 0 2 [facility]. [address] [place] [address], [id number], . tel:[phone] Referring Provider: Liam Blakely [employer] [address] [facility] [address], [place], [address]. tel:[phone] [facility], [address] [place] [address], [id number], tel:[phone] [facility] No Information 2 [facility]. [address] [place] [address], [id number], . tel:[phone] Referring Provider: Renetta Bush, [address] [place], [address] . tel:[phone] [facility], [address] [place] [address], [id number], tel:[phone] [facility] No Information Jan-0 2 0 [facility]. [address] [place] [address], [id number], . tel:[phone] Referring Provider: Liam Blakely [employer] [address] [facility] [address], [place], [address]. tel:[phone] Family History Family Member Type Diagnosis Age At Onset No Information Payers Payer name Insurance type Covered republican ID Christian fragoso(s) Blue Cross Ariel Garnica BL [id number] Social History Type Description Quantity Date [...]
--- OUTSIDE RECORDS SUMMARY | 2023-09-17 00:09 | XMS_ITS | Encounter Summary ---
Author Organization [facility] Address [address] [place] [address] Care Team Providers Care Survival Equipment Repairer Name Role Phone Unavailable Primary Care Provider Unavailabl e Reason for Referral * Outpatient (Routine) - Authorized Specialty Diagnoses / Procedures Referred By Randy christiansen Referred To Contact Diagnoses Secondary Malignant Neoplasm Brain (HCC) Seizure (HCC) Procedures ECG 12 Lead Ej Senior M.B.B.S. [facility] Referral ID Status Reason Start Date Expiration Date V isits Requested Visits Authorized [id number] Authorized 06/20/2023 06/19/2024 1 1 Reason for Visit * Outpatient (Routine) - Closed Specialty Diagnoses / Procedures Referred By Randy christiansen Referred To Contact Neurology Diagnoses Secondary Malignant Neoplasm Brain (HCC) Seizure (HCC) Darion Heaton M.D. 200 [place] [address] [facility] Referral ID Status Reason Start Date Expiration Date Visits Re quested Visits Authorized [id number] Closed 05/23/2023 11/21/2024 1 1 Encounter Details Date Type Department Care Team (Latest Contact Info) Description 06/20/2023 10:00 AM CDT Comprehensive Visit Department of Neurology in [place], [place] [address] [place] [address] Ej Senior M.B.B.S. Localization Related Focal Partial [...] drink = 0.6 oz pur e alcohol) [facility] Utilities Answer Date Recorded In the past 12 months has e [employer], gas, oil, or water company threatened to [...] her in the Division of Epilepsy at [facility] on June 20, 2023. Patient was kindly [...] therapy. Itwill be important to document the HI interval prior to using this antiseizure medication. [...] 06/20/2023 10:00 AM CDT Darion Heaton M.D. [address] [place] [phone] SUBJECTIVE CHIEF COMPLAINT / REASON FOR VISIT [...] received WBRT for intracranial metastatic disease at [place], [place], in June [address]. [address]. [...] There is no ataxia or dysmetria on gagesm-fi-oeyy. ASSESSMENT / PLAN #1 Secondary Malignant Neoplasm [...] level, and EKG (to document the baseline [place] interval before using lacosamide). I have provided the patient with orders; she will get them locally and send us the results. We also discussed that the patient should also be given rescue medication if she has a prolonged seizure lasting 2 minutes or longer in duration or has a cluster of 3 or more seizures in 24 hours. TIME: Imfg-xp-[id number] time was 60 minutes with greater than [...]
--- OUTSIDE RECORDS SUMMARY | 2023-09-17 00:10 | XMS_ITS | Continuity of Care Document ---
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 Name Role Phone Will Miles LARSON Allergies, Adverse Reactions, Alerts Substance Reaction Status Criticality No Known Allergies Active No Inform ation Medications Medication Instructions Dosage Effective Dates (start - stop) Status Comments oxycodone 10 mg tablet take 1 tablet by oral route every 6 hours as needed for chronic pain; max 6/day for 30 days - Active hydrocodone 10 mg-acetaminophen 325 mg tablet take 1 tablet by oral route every 4 - 6 hours as needed for chronic pain; max 6/day for 30 days - Active levothyroxine 100 mcg capsule take [...] EST TELEMEDICINE Foll-up eval q3mo opiod tx Apr-28-2023 Foll-up eval q3mo opiod tx OFFICE VISIT, [...] VISIT, EST TELEMEDICINE INJ [place], 02[place]18 [facility] [place] Triamcinolone acetonide inj Foll-up eval q3mo [...] Diagnoses Date Provider Providers Copied on Encounter [facility], [address] [place], [id number] , [place] tel:[phone] [facility] [place] No Information 4 Live Aquino. [address] [place] [address], [id number] , [place]. tel: [phone] OFFICE VISIT, [facility], [address] [place] [address], [id number] , [place] tel: [phone] [facility] low back pain (chief complaint) Radiculopathy, lumbar regionSpinal stenosis, lumbar regionMalignant neoplasm of pleuraChronic pain syndromeSacroilii tisMyalgia, other siteLong term (current) use of opiate analgesic 4 Cole Murphy. [address] [place] [address] [address], [place], [id number] , [place]. tel: [phone] OFFICE/OUTPAT IENT VISIT, [facility], [address] [place] [address], [id number] , [place] tel: [phone] [facility] low back pain (chief complaint) Radiculopathy, lumbar regionSpinal stenosis, lumbar regionMalignant neoplasm of pleuraChronic pain syndromeSacroilii tisMyalgia, other siteLong term (current) use of opiate analgesicEncounte r for therapeutic drug level monitoring 4 Kelsey Arrington. [address] [place] [address] [address], [place], [id number] , [place]. tel: [phone] Referring Provider: Miles Jiménez, [address] [place] [address], [id number]. tel:[phone] OFFICE VISIT, [facility], [address] [place] [address], [id number] , [place] tel: [phone] [facility] low back pain (chief complaint) Radiculopathy, lumbar regionSpinal stenosis, lumbar regionMalignant neoplasm of pleuraChronic pain syndromeSacroilii tisMyalgia, other siteLong term (current) use of opiate analgesic 4 Kelsey Arrington. [address] [place] [address] [address], [place], [id number] , [place]. tel: [phone] OFFICE VISIT, [facility], [address] [place] [address], [id number] , [place] tel: [phone] [facility] low back pain (chief complaint) Radiculopathy, lumbar regionSpinal stenosis, lumbar regionMalignant neoplasm of pleuraChronic pain syndromeSacroilii tisMyalgia, other siteLong term (current) use of opiate analgesic 4 Colekayla Hayesel. [address] [place] [address] [address], [place], [id number] , [place]. tel: [phone] OFFICE/OUTPAT IENT VISIT, [facility], [address] [place] [address], [id number] , [place] tel: [phone] [facility] low back pain (chief complaint) Malignant neoplasm of pleuraChronic pain syndromeSacroilii tisSpinal stenosis, lumbar regionRadiculopat hy, lumbar regionMyalgia, other siteLong term (current) use of opiate analgesicEncounte r for therapeutic drug level monitoring 4 Kelsey Arrington. [address] [place] [address] [address], [place], [id number] , [place]. tel: [phone] Referring Provider: Miles Jiménez, [address] [place] [address], [id number]. [phone] OFFICE VISIT, [facility], [address] [place] [address], [id number] , [place] tel: [phone] [facility] low back pain (chief complaint) Malignant neoplasm of pleuraChronic pain syndromeSacroilii tisSpinal stenosis, lumbar regionRadiculopat hy, lumbar regionMyalgia, other siteLong term (current) use of opiate analgesic 4 Kelsey Arrington. [address] [place] [address] [address], [place], [id number] , [place]. tel: [phone] OFFICE VISIT, [facility], [address] [place] [address], [id number] , [place] tel: [phone] [facility] low back pain (chief complaint) Malignant neoplasm of pleuraChronic pain syndromeSacroilii tisSpinal stenosis, lumbar regionRadiculopat hy, lumbar regionMyalgia, other siteLong term (current) use of opiate analgesic 4 Kelsey Arrington. [address] [facility] [address], [place], [id number] , [place]. tel: [phone] OFFICE/OUTPAT IENT VISIT, [facility], [address] [place] [address], [id number] , [place] tel: [phone] [facility] Low back pain (chief complaint) Malignant neoplasm of pleuraChronic pain syndromeSacroilii tisSpinal stenosis, lumbar regionRadiculopat hy, lumbar regionMyalgia, other siteLong term (current) use of opiate analgesicEncounte r for therapeutic drug level monitoring 4 Kelsey Arrington. [address] [place] [address] [address], [place], [id number] , [place]. tel: [phone] Referring Provider: Miles Jiménez, [address] [place], [address]. [phone] OFFICE VISIT, [facility] [employer] [facility], [address] [place] [address], [id number] , [place] tel: [phone] [facility] Neck Pain (chief complaint) Malignant neoplasm of pleuraChronic pain syndromeSacroilii tisSpinal stenosis, lumbar regionRadiculopat hy, lumbar regionMyalgia, other siteLong term (current) use of opiate analgesic 4 Kelsey Arrington. [address] [place] [address] [address], [place], [id number] , [place]. tel: [phone] OFFICE VISIT, [facility] [employer] [facility], [address] [place] [address], [id number] , [place] tel: [phone] [facility] Neck Pain (chief complaint) Malignant neoplasm of pleuraChronic pain syndromeSacroilii tisSpinal stenosis, lumbar regionRadiculopat hy, lumbar regionMyalgia, other siteLong term (current) use of opiate analgesic 3 Kelsey Arrington. [address] [place] [address] [address], [place], [place], [id number] , [place]. tel:[phone] [facility], [address] [place] [address], [id number] , [place] tel:[phone] [facility] Sacroiliitis, not elsewhere classified 3 Eleazar Jackson. [address] [place] [address], [id number] , [place]. tel:[phone] Referring Provider: Renetta Bush, [address] [place] [address], [address]. [phone] OFFICE/OUTPAT IENT VISIT, [facility], [address] [place] [address], [id number] , [place] tel:[phone] [facility] Neck Pain (chief complaint) Malignant neoplasm of pleuraChronic pain syndromeSacroilii tisSpinal stenosis, lumbar regionRadiculopat hy, lumbar regionMyalgia, other siteLong term (current) use of opiate analgesicEncounte r for therapeutic drug level monitoring 3 Kelsey Arrington. [address] [place] [address] [address], [place], [place], [id number] , [place]. tel:[phone] Referring Provider: Murphy Cole, [address] [place] [address] [address] [address], [place], [address]. [phone] [facility], [address] [place] [address], [id number] , [place] tel:[phone] [facility] No Information 3 Kelsey Arrington. [address] [place] [address] [address], [place], [place], [id number] , [place]. tel:[phone] Referring Provider: Murphy Cole, [address] [place] [address] [address], [place], [address]. tel:[phone] OFFICE VISIT, EST TELEMEDICINE [facility], [address] [place] [address], [id number] , [place] tel:[phone] [facility] Neck Pain (chief complaint) Malignant neoplasm of pleuraChronic pain syndromeSacroilii tisSpinal stenosis, lumbar regionRadiculopat hy, lumbar regionMyalgia, other siteLong term (current) use of opiate analgesic Sep-2 3 Colehina Arrington. [address] [place] [address] [address], [place], [place], [id number] , [place]. tel:[phone] Referring Provider: Miles Jiménez, [address] [place] [address], [id number]. tel:[phone] OFFICE/OUTPAT IENT VISIT, EST [facility], [address] [place] [address], [id number] , [place] [phone] [facility] Neck Pain (chief complaint) Malignant neoplasm of pleuraChronic pain syndromeSacroilii tisSpinal stenosis, lumbar regionRadiculopat hy, lumbar regionMyalgia, other siteLong term (current) use of opiate analgesicEncounte r for therapeutic drug level monitoring 3 Colekayla Hayesel. [address] [place] [address] [address], [place], [place], [id number] , [place]. tel:[phone] Referring Provider: Miles Jiménez, [address] [place] [address], [id number]. tel:[phone] [facility], [address] [place] [address], [id number] , [place] [phone] [facility] No Information 3 Colekayla Arrington. [address] [place] [address] [address], [place], [place], [id number] , [place]. tel:[phone] Referring Provider: Miles Jiménez, [address] [place] [address], [address]. tel:[phone] OFFICE VISIT, EST TELEMEDICINE [facility], [address] [place] [address], [id number] , [place] tel:[phone] [facility] Neck Pain (chief complaint) Malignant neoplasm of pleuraChronic pain syndromeSacroilii tisSpinal stenosis, lumbar regionRadiculopat hy, lumbar regionMyalgia, other siteLong term (current) use of opiate analgesic 3 Kelsey Arrington. [address] [place] [address] [address], [place], [place], [id number] , [place]. tel:[phone] Referring Provider: Miles Jiménez, [address] [place] [address], [address]. tel:[phone] OFFICE VISIT, EST TELEMEDICINE [facility], [address] [place] [address], [id number] , [place] tel: [phone] [facility] Neck Pain (chief complaint) Chronic pain syndromeSacroilii tisSpinal stenosis, lumbar regionRadiculopat hy, lumbar regionMyalgia, other siteLong term (current) use of opiate analgesicMalignan t neoplasm of pleura 3 Kelsey Arrington. [address] [place] [address] [address], [place], [place], [id number] , [place]. tel:[phone] Referring Provider: Miles Jiménez, [address] [place] [address], [address]. [phone] OFFICE/OUTPAT IENT VISIT, [facility], [address] [place] [address], [id number] , [place] tel:[phone] [facility] low back pain (chief complaint) Chronic pain syndromeSacroilii tisSpinal stenosis, lumbar regionRadiculopat hy, lumbar regionMyalgia, other siteLong term (current) use of opiate analgesicMalignan t neoplasm of pleuraEncounter for therapeutic drug level monitoring 3 Kelsey Arrington. [address] [place] [address] [address], [place], [place], [id number] , [place]. tel:[phone] Referring Provider: Miles Jiménez, [address] [place] [address], [address]. [phone] [facility], [address] [place] [address], [id number] , [place] [phone] [facility] No Information James-0 - 3 Cole Murphy. [address] [place] [address] [address], [place], [id number] , [place]. [phone] OFFICE VISIT, RUST TELE[employer]IC[employer] [facility], [address] [place] [address], [id number] , [place] tel:[phone] [facility] low back pain (chief complaint) Chronic pain syndromeSacroilii tisSpinal stenosis, lumbar regionRadiculopat hy, lumbar regionMyalgia, other siteLong term (current) use of opiate analgesic May-2 3 Kelsey Arrington. [address] [place] [address] [address], [place], [place], [id number] , [place]. [phone] Referring Provider: Miles Jiménez, [address] [place] [address], [address]. tel:[phone] OFFICE VISIT, [facility], [address] [place] [address], [id number] , [place] [phone] [facility] low back pain (chief complaint) Spinal stenosis, lumbar regionSacroiliiti sMyalgia, other siteRadiculopathy , lumbar regionLong term (current) use of opiate analgesicChronic pain syndrome Apr-2 3 Jenny Campos. [address] [place] [address], [id number] , [place]. tel:[phone] Referring Provider: Miles Jiménez, [address] [place] [address], [id number]. tel:[phone] OFFICE/OUTPAT IENT VISIT, [facility], [address] [place] [address], [id number] , [place] [phone] [facility] low back pain (chief complaint) SacroiliitisSpina l stenosis, lumbar regionRadiculopat hy, lumbar regionMyalgia, other siteLong term (current) use of opiate analgesic Apr-0 - 3 Kelsey Arrington. [address] [place] [address] [address], [place], [id number] , [place]. [phone] Referring Provider: Miles Jiménez, [address] [place] [address], [address]. tel:[phone] [facility], [address] [place] [address], [id number] , [place] tel: [phone] [facility] [place] No Information 3 Kelsey Hayesel. [address] [place] [address] [address], [place], [id number] , [place]. tel:[phone] [facility], [address] [place] [address], [id number] , [place] tel:[phone] [facility] Sacroiliitis, not elsewhere classified 3 Krissy Aquino. [address] [place] [address], [id number] , [place]. tel:[phone] Referring Provider: Miles Jiménez, [address] [place] [address], [address]. [phone] OFFICE VISIT, EST TELEMEDICINE [facility], [address] [place] [address], [id number] , [place] tel: [phone] [facility] low back pain (chief complaint) SacroiliitisSpina l stenosis, lumbar regionRadiculopat hy, lumbar regionMyalgia, other siteLong term (current) use of opiate analgesic 3 Kelsey Arrington. [address] [place] [address] [address], [place], [place], [id number] , [place]. tel:[phone] OFFICE VISIT, EST TELEMEDICINE [facility], [address] [place] [address], [id number] , [place] tel:[phone] [facility] low back pain (chief complaint) SacroiliitisSpina l stenosis, lumbar regionRadiculopat hy, lumbar regionMyalgia, other siteLong term (current) use of opiate analgesic 2 Kelsey Arrington. [address] [place] [address] [address], [place], [id number] , [place]. tel: [phone] [facility], [address] [place] [address], [id number] , [place] tel: [phone] [facility] No Information 2 Kelsey Arrington. [address] [place] [address] [address], [place], [id number] , [place]. tel: [phone] Referring Provider: Miles Jiménez, [address] [place] [address], [address]. tel:[phone] OFFICE/OUTPAT IENT VISIT, [facility], [address] [place] [address], [id number] , [place] tel: [phone] [facility] low back pain (chief complaint) SacroiliitisSpina l stenosis, lumbar regionRadiculopat hy, lumbar regionMyalgia, other siteLong term (current) use of opiate analgesicEncounte r for therapeutic drug level monitoring 2 Kelsey Arrington. [address] [place] [address] [address], [place], [id number] , [place]. tel: [phone] Referring Provider: Miles Jiménez, [address] [place] [address], [address]. tel:[phone] OFFICE VISIT, RUST TELEMEDICINE [facility], [address] [place] [address], [id number] , [place] tel: [phone] [facility] low back pain (chief complaint) SacroiliitisSpina l stenosis, lumbar regionRadiculopat hy, lumbar regionMyalgia, other siteLong term (current) use of opiate analgesic 2 Kelsey Arrington. [address] [place] [address] [address], [place], [id number] , [place]. tel: [phone] [facility], [address] [place] [address], [id number] , [place] tel: [phone] [facility] Sacroiliitis, not elsewhere classified Sep-3 2 Blakelyleana Wheeler[address] [facility], [address], [place], [address], [place]. tel:[phone] Referring Provider: Miles Jiménez, [address] [place] [address], [address]. tel:[phone] OFFICE VISIT, RUST TELEMEDICINE [facility], [address] [place] [address], [id number] , [place] [phone] [facility] low back pain (chief complaint) SacroiliitisSpina l stenosis, lumbar regionRadiculopat hy, lumbar regionMyalgia, other siteLong term (current) use of opiate analgesic Sep-2 2 Kelsey Arrington. [address] [place] [address] [address], [place], [place], [id number] , [place]. [phone] Referring Provider: Miles Jiménez, [address] [place] [address], [address]. tel:[phone] [facility], [address] [place] [address], [id number] , [place] [phone] [facility] No Information Sep- 2 Kelsey Arrington. [address] [place] [address] [address], [place], [id number] , [place]. [phone] Referring Provider: Miles Jiménez, [address] [place] [address], [address]. tel:[phone] OFFICE/OUTPAT IENT VISIT, [facility], [address] [place] [address], [id number] , [place] [phone] [facility] low back pain (chief complaint) SacroiliitisSpina l stenosis, lumbar regionRadiculopat hy, lumbar regionMyalgia, other siteLong term (current) use of opiate analgesic Sep- 2 Kelsey Arrington. [address] [place] [address] [address], [place], [place], [id number] , [place]. tel:[phone] Referring Provider: Miles Jiménez, [address] [place] [address], [address]. [phone] OFFICE VISIT, EST TELEMEDICINE [facility], [address] [place] [address], [id number] , [place] tel: [phone] [facility] Back Pain (chief complaint) SacroiliitisSpina l stenosis, lumbar regionRadiculopat hy, lumbar regionMyalgia, other siteLong term (current) use of opiate analgesic 2 Cole Murphy. [address] [place] [address], [place], [place], [id number] , [place]. tel: [phone] OFFICE VISIT, EST TELEMEDICINE [facility], [address] [place] [address], [id number] , [place] tel: [phone] [facility] Back Pain (chief complaint) SacroiliitisSpina l stenosis, lumbar regionRadiculopat hy, lumbar regionMyalgia, other siteLong term (current) use of opiate analgesic 2 Kelsey Arrington. [address] [place] [address], [place], [place], [id number] , [place]. tel: [phone] [facility], [address] [place] [address], [id number] , [place] tel:[phone] [facility] Sacroiliitis, not elsewhere classified 2 Eleazar Jackson. [address] [place] [address], [id number] , [place]. tel: [phone] Referring Provider: Miles Jiménez, [address] [place] [address], [address]. tel:[phone] OFFICE VISIT, EST TELEMEDICINE [facility], [address] [place] [address], [id number] , [place] tel: [phone] [facility] Back Pain (chief complaint) SacroiliitisSpina l stenosis, lumbar regionRadiculopat hy, lumbar regionMyalgia, other siteLong term (current) use of opiate analgesic 2 Cole Murphy. [address] [place] [address] [address], [place], [place], [id number] , [place]. tel:[phone] Referring Provider: Miles Jiménez, [address] [place] [address], [address]. [phone] OFFICE VISIT, EST TELEMEDICINE [facility], [address] [place] [address], [id number] , [place] tel: [phone] [facility] Back Pain (chief complaint) SacroiliitisSpina l stenosis, lumbar regionRadiculopat hy, lumbar regionMyalgia, other siteLong term (current) use of opiate analgesic 2 Cole Murphy. [address] [place] [address] [address], [place], [place], [id number] , [place]. tel: [phone] [facility], [address] [place] [address], [id number] , [place] tel: [phone] [facility] No Information 2 Kelsey Arrington. [address] [place] [address] [address], [place], [place], [id number] , [place]. tel: [phone] OFFICE/OUTPAT IENT VISIT, [facility], [address] [place] [address], [id number] , [place] tel: [phone] [facility] Back Pain (chief complaint) Myalgia, other siteSacroiliitisS lester stenosis, lumbar regionRadiculopat hy, lumbar regionLong term (current) use of opiate analgesicEncounte r for screening for other disorderEncounter for therapeutic drug level monitoring 2 Kelsey Arrington. [address] [place] [address] [address], [place], [place], [id number] , [place]. tel:[phone] Referring Provider: Miles Jiménez, [address] [place] [address], [address]. tel:[phone] OFFICE VISIT, EST TELEMEDICINE [facility], [address] [place] [address], [id number] , [place] tel:[phone] [facility] No Information 2 Kelsey Arrington. [address] [place] [address] [address], [place], [place], [id number] , [place]. tel:[phone] Referring Provider: Miles Jiménez, [address] [place] [address], [id number]. [phone] OFFICE VISIT, EST TELEMEDICINE [facility], [address] [place] [address], [id number] , [place] tel: [phone] [facility] Back Pain (chief complaint) Radiculopathy, lumbar regionSacroiliiti sSpinal stenosis, lumbar regionMyalgia, other siteLong term (current) use of opiate analgesic 2 Kelsey Arrington. [address] [place] [address] [address], [place], [place], [id number] , [place]. tel: [phone] OFFICE VISIT, EST TELEMEDICINE [facility], [address] [place] [address], [id number] , [place] tel:[phone] [facility] Back Pain (chief complaint) Radiculopathy, lumbar regionSacroiliiti sSpinal stenosis, lumbar regionMyalgia, other siteLong term (current) use of opiate analgesic 1 Colehina Arrington. [address] [place] [address] [address], [place], [place], [id number] , [place]. tel: [phone] [facility], [address] [place] [address], [id number] , [place] tel: [phone] [facility] [place] Sacroiliitis 1 Eleazar Jackson. [address] [place] [address], [id number] , [place]. tel:[phone] Referring Provider: Miles Jiménez, [address] [place] [address], [address]. [phone] OFFICE VISIT, EST TELEMEDICINE [facility], [address] [place] [address], [id number] , [place] tel:[phone] [facility] Back Pain (chief complaint) Radiculopathy, lumbar regionSpinal stenosis, lumbar regionSacroiliiti sMyalgia, other siteLong term (current) use of opiate analgesic Dec-0 1 Kelsey Arrington. [address] [place] [address] [address], [place], [place], [id number] , [place]. tel: [phone] Referring Provider: Miles Jiménez, [address] [place] [address], [address]. tel:[phone] OFFICE VISIT, EST TELEMEDICINE [facility], [address] [place] [address], [id number] , [place] tel: [phone] [facility] Back Pain (chief complaint) Radiculopathy, lumbar regionSpinal stenosis, lumbar regionSacroiliiti sMyalgia, other siteLong term (current) use of opiate analgesic Nov-0 1 Kelsey Arrington. [address] [place] [address] [address], [place], [place], [id number] , [place]. tel: [phone] OFFICE VISIT, EST TELEMEDICINE [facility], [address] [place] [address], [id number] , [place] tel: [phone] [facility] Back Pain (chief complaint) Myalgia, other siteSacroiliitisR adiculopathy, lumbar regionSpinal stenosis, lumbar regionLong term (current) use of opiate analgesic Oct-0 1 Kelsey Arrington. [address] [place] [address] [address], [place], [place], [id number] , [place]. tel: [phone] Referring Provider: Miles Jiménez, [address] [place] [address], [address]. tel:[phone] [facility], [address] [place] [address], [id number] , [place] tel: [phone] [facility] [place] Myalgia, other site Sep-1 0- 1 Kelsey Arrington. [address] [place] [address] [address], [place], [place], [id number] , [place]. tel: [phone] Referring Provider: Miles Jiménez, [address] [place] [address], [address]. tel:[phone] OFFICE VISIT, EST TELEMEDICINE [facility], [address] [place] [address], [id number] , [place] [phone] [facility] Back Pain (chief complaint) SacroiliitisRadic ulopathy, lumbar regionSpinal stenosis, lumbar regionLong term (current) use of opiate analgesicMyalgia, other site Sep-0 1 Colehina Arrington. [address] [facility] [address], [place], [place], [id number] , [place]. [phone] Referring Provider: Miles Jiménez, [address] [place] [address], [address]. tel:[phone] OFFICE VISIT, EST TELEMEDICINE [facility], [address] [place] [address], [id number] , [place] [phone] [facility] Back Pain (chief complaint) SacroiliitisRadic ulopathy, lumbar regionSpinal stenosis, lumbar regionLong term (current) use of opiate analgesicMyalgia, other site Aug-0 1 Kelsey Arrington. [facility] [address], [place], [place], [id number] , [place]. [phone] Referring Provider: Miles Jiménez, [address] [place] [address], [address]. tel:[phone] OFFICE VISIT, EST TELEMEDICINE [facility], [address] [place] [address], [id number] , [place] [phone] [facility] Back Pain (chief complaint) SacroiliitisRadic ulopathy, lumbar regionSpinal stenosis, lumbar regionLong term (current) use of opiate analgesicMyalgia, other site Aug-0 1 Colekayla Arrington. [facility] [address], [place], [place], [id number] , [place]. tel:[phone] Referring Provider: Miles Jiménez, [address] [place] [address], [address]. tel:[phone] OFFICE VISIT, EST TELEMEDICINE [facility], [address] [place] [address], [id number] , [place] [phone] [facility] Back Pain (chief complaint) SacroiliitisRadic ulopathy, lumbar regionSpinal stenosis, lumbar regionLong term (current) use of opiate analgesicMyalgia, other site 1 Kelsey Arrington. [facility] [address], [place], [place], [id number] , [place]. tel:[phone] Referring Provider: Miles Jiménez, [address] [place] [address], [address]. [phone] OFFICE VISIT, EST TELEMEDICINE [facility], [address] [place] [address], [id number] , [place] tel:[phone] [facility] Back Pain (chief complaint) SacroiliitisRadic ulopathy, lumbar regionSpinal stenosis, lumbar regionLong term (current) use of opiate analgesicMyalgia, other site 1 Kelsey Arrington. [address] [place] [address] [address], [place], [place], [id number] , [place]. [phone] Referring Provider: Miles Jiménez, [address] [place] [address], [address]. [phone] [facility], [address] [place] [address], [id number] , [place] [phone] [facility] [place] Sacroiliitis Apr-2 1 Eleazar Jackson. [address] [place] [address], [id number] , [place]. [phone] Referring Provider: Miles Jiménez, [address] [place] [address], [address]. tel:[phone] OFFICE VISIT, EST TELEMEDICINE [facility], [address] [place] [address], [id number] , [place] [phone] [facility] Back Pain (chief complaint) Radiculopathy, lumbar regionSpinal stenosis, lumbar regionLong term (current) use of opiate analgesicMyalgia, other siteSacroiliitis 1 Kelsey Arrington. [address] [place] [address] [address], [place], [place], [id number] , [place]. tel: [phone] Referring Provider: Miles Jiménez, [address] [place] [address], [address]. tel:[phone] OFFICE VISIT, EST TELEMEDICINE [facility], [address] [place] [address], [id number] , [place] tel: [phone] [facility] Back Pain (chief complaint) Radiculopathy, lumbar regionSpinal stenosis, lumbar regionLong term (current) use of opiate analgesicMyalgia, other siteSacroiliitis 1 Kelsey Arrington. [address] [place] [address] [address], [place], [place], [id number] , [place]. tel: [phone] Referring Provider: Miles Jiménez, [address] [place] [address], [address]. tel:[phone] OFFICE VISIT, EST TELEMEDICINE [facility], [address] [place] [address], [id number] , [place] tel: [phone] [facility] Back Pain (chief complaint) Radiculopathy, lumbar regionSpinal stenosis, lumbar regionLong term (current) use of opiate analgesicSacroili itisMyalgia, other site 1 Kelsey Arrington. [address] [place] [address] [address], [place], [place], [id number] , [place]. tel:[phone] Referring Provider: Miles Jiménez, [address] [place] [address], [address]. [phone] [facility], [address] [place] [address], [id number] , [place] tel:[phone] [facility] No Information 1 Kelsey Arrington. [address] [place] [address] [address], [place], [place], [id number] , [place]. tel: [phone] OFFICE/OUTPAT IENT VISIT, EST [facility], [address] [place] [address], [id number] , [place] tel: [phone] [facility] Back Pain (chief complaint) Radiculopathy, lumbar regionSpinal stenosis, lumbar regionLong term (current) use of opiate analgesicSacroili itisMyalgia, other site 1 Colehina Arrington. [address] [place] [address] [address], [place], [place], [id number] , [place]. tel: [phone] Referring Provider: Miles Jiménez, [address] [place] [address], [address]. tel:[phone] OFFICE VISIT, RUST TELEMEDICINE [facility], [address] [place] [address], [id number] , [place] tel: [phone] [facility] Back Pain (chief complaint) Radiculopathy, lumbar regionSpinal stenosis, lumbar regionLong term (current) use of opiate analgesicSacroili itisMyalgia, other site 0 Cole Murphy. [address] [place] [address] [address], [place], [place], [id number] , [place]. tel: [phone] Referring Provider: Miles Jiménez, [address] [place] [address], [address]. tel:[phone] [facility], [address] [place] [address], [id number] , [place] tel:[phone] [facility] Radiculopathy, lumbar region [address] Red[address] Wheeler[address] [facility], [address] [facility] [address], [place], [address], [place]. [phone] Referring Provider: Miles Jiménez, [address] [place] [address], [address]. tel:[phone] OFFICE VISIT, EST TELEMEDICINE [facility], [address] [place] [address], [id number] , [place] tel: [phone] [facility] Back Pain (chief complaint) Radiculopathy, lumbar regionSpinal stenosis, lumbar regionLong term (current) use of opiate analgesicSacroili itisMyalgia, other site 0 Kelsey Arrington. [address] [place] [address] [address], [place], [place], [id number] , [place]. tel:[phone] Referring Provider: Miles Jiménez, [address] [place] [address], [address]. [phone] OFFICE VISIT, [facility], [address] [place] [address], [id number] , [place] tel:[phone] [facility] Back Pain (chief complaint) Radiculopathy, lumbar regionSpinal stenosis, lumbar regionLong term (current) use of opiate analgesicSacroili itisMyalgia, other site 0 Kelsey Arrington. [address] [place] [address] [address], [place], [place], [id number] , [place]. tel:[phone] Referring Provider: Miles Jiménez, [address] [place] [address], [address]. [phone] OFFICE VISIT, [facility], [address] [place] [address], [id number] , [place] tel:[phone] [facility] Back Pain (chief complaint) Radiculopathy, lumbar regionSpinal stenosis, lumbar regionLong term (current) use of opiate analgesicSacroili itisMyalgia, other site 0 Kelsey Arrington. [address] [place] [address] [address], [place], [place], [id number] , [place]. tel:[phone] Referring Provider: Miles Jiménez, [address] [place] [address], [address]. [phone] OFFICE/OUTPAT IENT VISIT, [facility], [address] [place] [address], [id number] , [place] tel:[phone] [facility] Back Pain (chief complaint) Radiculopathy, lumbar regionSpinal stenosis, lumbar regionLong term (current) use of opiate analgesicSacroili itisMyalgia, other site 0 Kelsey Arrington. [address] [place] [address] [address], [place], [place], [id number] , [place]. [phone] Referring Provider: Miles Jiménez, [address] [place] [address], [address]. tel:[phone] [facility], [address] [place] [address], [id number] , [place] [phone] [facility] [place] Radiculopathy, lumbar region 0 Nava Campos. [address] [place] [address], [id number] , [place]. [phone] Referring Provider: Miles Jiménez, [address] [place] [address], [address]. tel:[phone] OFFICE VISIT, EST TELEMEDICINE [facility], [address] [place] [address], [id number] , [place] [phone] [facility] Back Pain (chief complaint) Radiculopathy, lumbar regionSpinal stenosis, lumbar regionLong term (current) use of opiate analgesicSacroili itis 0 Kelsey Arrington. [address] [place] [address] [address], [place], [place], [id number] , [place]. [phone] Referring Provider: Miles Jiménez, [address] [place] [address], [address]. tel:[phone] [facility], [address] [place] [address], [id number] , [place] [phone] [facility] Radiculopathy, lumbar region 0 Colekayla Arrington. [address] [place] [address] [address], [place], [place], [id number] , [place]. [phone] OFFICE VISIT, EST TELEMEDICINE [facility], [address] [place] [address], [id number] , [place] [phone] [facility] Back Pain (chief complaint) Radiculopathy, lumbar regionSpinal stenosis, lumbar regionLong term (current) use of opiate analgesicSacroili itis 0 Kelsey Arrington. [address] [place] [address] [address], [place], [place], [id number] , [place]. tel:[phone] Referring Provider: Miles Jiménez, [address] [place] [address], [address]. [phone] OFFICE VISIT, EST TELEMEDICINE [facility], [address] [place] [address], [id number] , [place] tel:[phone] [facility] Back Pain (chief complaint) Low back painChronic pain syndromeRadiculop athy, lumbar regionSpinal stenosis, lumbar regionLong term (current) use of opiate analgesic 0 Colehina Arrington. [address] [place] [address], [place], [place], [id number] , [place]. tel:[phone] [facility], [address] [place] [address], [id number] , [place] tel:[phone] [facility] Low back pain 0 Live Aquino. [address] [place] [address], [id number] , [place]. tel:[phone] Referring Provider: Miles Jiménez, [address] [place] [address], [address]. [phone] OFFICE VISIT, EST TELEMEDICINE [facility], [address] [place] [address], [id number] , [place] tel:[phone] [facility] Back Pain (chief complaint) Chronic pain syndromeRadiculop athy, lumbar regionSpinal stenosis, lumbar regionLong term (current) use of opiate analgesic May- 0 Kelsey Arrington. [address] [place] [address] [address], [place], [place], [id number] , [place]. tel:[phone] Referring Provider: iMles Jiménez, [address] [place] [address], [address]. [phone] OFFICE VISIT, EST TELEMEDICINE [facility], [address] [place], [place], [id number] , [place] tel:[phone] [facility] Back Pain (chief complaint) Chronic pain syndromeRadiculop athy, lumbar regionSpinal stenosis, lumbar regionLong term (current) use of opiate analgesicLow back pain Apr- 0 Kelsey Arrington. [address] [facility] [address], [place], [place], [id number] , [place]. tel:[phone] Referring Provider: Miles Jiménez, [address] [place], [address]. [phone] OFFICE/OUTPAT IENT VISIT, [facility], [address] [place], [place], [id number] , [place] tel:[phone] [facility] Back Pain (chief complaint) Chronic pain syndromeOther intervertebral disc degeneration, lumbar regionRadiculopat hy, lumbar regionSpinal stenosis, lumbar regionEncounter for therapeutic drug level monitoringLong term (current) use of opiate analgesic Apr-0 0 Kelsey Arrington. [address] [facility] [address], [place], [place], [id number] , [place]. tel:[phone] Referring Provider: Abdifatah Henry, [facility] [address] [facility], [place], [address]. tel:[phone] Family History Family Member Type Diagnosis Age At Onset No Information Payers Payer name Insurance type Covered constitution party ID Leea ticarlton(s) [employer] Ariel Garnica [id number] Social History Type Description Quantity Date Captured Comments Alcohol Use Details Unknown Caffeine Use Details Unknown Tobacco Use Status Smoking Status No Information Sex Female Chief Complaint And Reason For Visit No Information Reason For Referral Reason For Referral No Information Plan Of Treatment Date Type Action Status Goal UDT. Due on due Goal Order [...] e Goal FIT-DNA. Due on due Goal NUTRITION HELPER Scanned. Due on due Goal OARS. Due on due Goal WIRE STITCHER Paperwork. Due on due Goal Lipid panel. [...] ue Goal FIT-DNA. Due on due Goal OARS. Due on due Goal Medication Recon ciliation. Due on due Goal Tobacco Use. Due on due Goal CT-Colonography. Due on due Goal HPV. Due on due Goal Height. Due on d ue Goal FIT. Due on due Goal Zoster vaccine ( 1st). Due on due Goal Lipid panel. Due on due Goal UDT. Due on due Goal Unhealthy drug u se screening. Due on due Goal PHQ-9. Due on du e Goal Order Annual PT. Due on due Goal ALT (SGPT). Due on due Goal Update Social Hi story. Due on due Goal Hepatitis C scre ening. Due on due Goal WIRE STITCHER Paperwork. Due on due Goal NUTRITION HELPER Scanned. Due on due Goal AST [...] Goal Lipid panel. Due on due Goal NUTRITION HELPER Scanned. Due on due Goal AST (SGOT). Due on due Goal WIRE STITCHER Paperwork. Due on due Goal HPV. Due on due Goal Weight. Due on d ue Goal Review Allergy List. Due on due Goal UDT. Due on due Goal NUTRITION HELPER Scanned. Due on due Goal AST (SGOT). Due on due Goal Order Annual PT. Due on due Goal WIRE STITCHER Paperwork. Due on due Goal OARS. Due on due Goal CT-Colonography. Due on due Goal Unhealthy drug u se screening. Due on due Goal Height. Due on d ue Goal FIT. Due on due Goal Lipid [...] vaccine ( 1st). Due on due Goal HPV. Due on due Goal Hepatitis C scre ening. Due on due Goal Creatinine. Due on due Goal ALT (SGPT). Due on due Goal Lipid panel. Due on due Goal Update Social Hi story. Due on due Goal Medication Recon ciliation. Due on due Goal OARS. Due on due Goal PHQ-9. Due on du e Goal FIT-DNA. Due on due Goal CT-Colonography. Due on due Goal FIT. Due on due Goal NUTRITION HELPER Scanned. Due on due Goal Height. Due on d ue Goal AST (SGOT). Due on due Goal Tobacco Use. Due on due Goal Order Annual PT. Due on due Goal Weight. Due on d ue Goal UDT. Due on due Goal Unhealthy drug u se screening. Due on due Goal WIRE STITCHER Paperwork. Due on due Goal Review Allergy List. Due on due Goal Height. Due on d ue Goal UDT. Due on due Goal OARS. Due on due Goal CT-Colonography. Due on due Goal PHQ-9. Due on du e Goal Review Allergy List. Due on due Goal Creatinine. Due on due Goal Order Annual PT. Due on due Goal WIRE STITCHER Paperwork. Due on due Goal Tobacco Use. Due on due Goal HPV. Due on due Goal FIT-DNA. Due on due Goal ALT (SGPT). Due on due Goal NUTRITION HELPER Scanned. Due on due Goal AST [...] due Goal Creatinine. Due on due Goal NUTRITION HELPER Scanned. Due on due Goal Order [...] due Goal HPV. Due on due Goal WIRE STITCHER Paperwork. Due on due Goal PHQ-9. Due on du e Goal NUTRITION HELPER Scanned. Due on due Goal Creatinine. [...] Goal ALT (SGPT). Due on due Goal WIRE STITCHER Paperwork. Due on due Goal Lipid panel. [...] Goal Lipid panel. Due on due Goal NUTRITION HELPER Scanned. Due on due Goal UDT. Due on due Goal Review Allergy List. Due on due Goal WIRE STITCHER Paperwork. Due on due Goal CT-Colonography. Due on [...] ( 1st). Due on due Goal Tobacco cessation counseling completed Goal NUTRITION HELPER Scanned. Due on due Goal UDT. [...] C scre ening. Due on due Goal WIRE STITCHER Paperwork. Due on due Goal Unhealthy drug [...] Goal AST (SGOT). Due on due Goal WIRE STITCHER Paperwork. Due on due Goal Creatinine. Due on due Goal NUTRITION HELPER Scanned. Due on due Goal HPV. Due [...] due Goal OARS. Due on due Goal NUTRITION HELPER Scanned. Due on due Goal ALT (SGPT). Due on due Goal UDT. Due on due Goal AST (SGOT). Due on due Goal WIRE STITCHER Paperwork. Due on due Goal Order Annual PT. Due on due Goal Hepatitis C scre [...] Goal Lipid panel. Due on due Goal WIRE STITCHER Paperwork. Due on due Goal OARS. Due on due Goal AST (SGOT). Due on due Goal NUTRITION HELPER Scanned. Due on due Goal Review [...] vaccine ( 1st). Due on due Goal HPV. Due on due Goal CT-Colonography. Due on due Goal Medication Recon ciliation. Due on due Goal AST (SGOT). Due on due Goal WIRE STITCHER Paperwork. Due on due Goal OARS. Due [...] Review Allergy List. Due on due Goal NUTRITION HELPER Scanned. Due on due Goal UDT. Due on due Goal Tobacco Use. Due on due Goal ALT (SGPT). Due on due Goal Order Annual PT. Due on due Goal Unhealthy drug u se screening. Due on due Goal Zoster vaccine ( 1st). Due on due Goal OARS. Due on due Goal Order Annual PT. Due on due Goal WIRE STITCHER Paperwork. Due on due Goal PHQ-9. Due [...] Social Hi story. Due on due Goal NUTRITION HELPER Scanned. Due on due Goal Review [...] due Goal CT-Colonography. Due on due Goal WIRE STITCHER Paperwork. Due on due Goal AST (SGOT). [...] Goal Lipid panel. Due on due Goal NUTRITION HELPER Scanned. Due on due Goal UDT. Due on due Goal Weight. Due on d ue Goal Medication Recon ciliation. Due on due Goal NUTRITION HELPER Scanned. Due on due Goal WIRE STITCHER Paperwork. Due on due Goal OARS. Due [...] due Goal FIT-DNA. Due on due Goal WIRE STITCHER Paperwork. Due on due Goal NUTRITION HELPER Scanned. Due on due Goal OARS. [...] C scre ening. Due on due Goal WIRE STITCHER Paperwork. Due on due Goal FIT-DNA. Due on due Goal PHQ-9. Due on du e Goal Tobacco Use. Due on 023 due Goal HPV. Due on due Goal Update Social Hi story. Due on due Goal CT-Colonography. Due on due Goal UDT. Due on due Goal Lipid panel. Due on due Goal FIT. Due on due Goal Height. Due on d ue Goal NUTRITION HELPER Scanned. Due on due Goal Medication Recon ciliation. Due on due Goal Unhealthy drug u se screening. Due on due Goal Weight. Due on d ue Goal Creatinine. Due on due Goal AST (SGOT). Due on due Goal Order Annual PT. Due on due Goal Zoster vaccine ( 1st). Due on due Goal Review Allergy List. Due on due Goal NUTRITION HELPER Scanned. Due on due Goal Height. Due on d ue Goal UDT. Due on due Goal Order Annual PT. Due on due Goal WIRE STITCHER Paperwork. Due on due Goal HPV. Due [...] Goal PHQ-9. Due on du e Goal NUTRITION HELPER Scanned. Due on due Goal Review Allergy List. Due on due Goal FIT. Due on due Goal Weight. Due on d ue Goal Creatinine. Due on due Goal PHQ-9. Due on du e Goal Medication Recon ciliation. Due on due Goal Unhealthy drug u se screening. Due on due Goal OARS. Due on due Goal FIT-DNA. Due on due Goal WIRE STITCHER Paperwork. Due on due Goal Update Social [...] due Goal UDT. Due on due Goal NUTRITION HELPER Scanned. Due on due Goal Creatinine. Due on due Goal WIRE STITCHER Paperwork. Due on due Goal AST (SGOT). [...] ue Goal FIT. Due on due Goal Creatinine. Due on due Goal NUTRITION HELPER Scanned. Due on due Goal AST (SGOT). Due on due Goal ALT (SGPT). Due on due Goal UDT. Due on due Goal Height. Due on d ue Goal Tobacco Use. Due on due Goal Order Annual PT. Due on due Goal Medication Recon ciliation. Due on due Goal Weight. Due on d ue Goal WIRE STITCHER Paperwork. Due on due Goal FIT-DNA. Due [...] C scre ening. Due on due Goal NUTRITION HELPER Scanned. Due on due Goal Medication Recon ciliation. Due on due Goal FIT. Due on due Goal PHQ-9. Due on du e Goal ALT (SGPT). Due on due Goal AST (SGOT). Due on due Goal Order Annual PT. Due on due Goal OARS. Due on due Goal WIRE STITCHER Paperwork. Due on due Goal Zoster vaccine ( 1st). Due on due Goal Height. Due on d ue Goal Update Social Hi story. Due on due Goal Unhealthy drug u se screening. Due on due Goal Lipid panel. Due on 023 due Goal HPV. Due on due Goal CT-Colonography. Due on due Goal ALT (SGPT). Due on due Goal WIRE STITCHER Paperwork. Due on due Goal AST (SGOT). [...] ue Goal CT-Colonography. Due on due Goal NUTRITION HELPER Scanned. Due on due Goal Lipid panel. Due on due Goal ALT (SGPT). Due on due Goal AST (SGOT). Due on due Goal WIRE STITCHER Paperwork. Due on due Goal PHQ-9. Due on du e Goal NUTRITION HELPER Scanned. Due on due Goal OARS. [...] vaccine ( ). Due on due Goal NUTRITION HELPER Scanned. Due on due Goal Lipid panel. Due on due Goal Unhealthy drug u se screening. Due on due Goal Order Annual PT. Due on due Goal OARS. Due on due Goal WIRE STITCHER Paperwork. Due on due Goal Weight. Due [...] Goal PHQ-9. Due on du e Goal Weight. Due on d ue Goal OARS. Due on due Goal AST (SGOT). Due on due Goal Order Annual PT. Due on due Goal NUTRITION HELPER Scanned. Due on due Goal ALT (SGPT). Due on due Goal UDT. Due on due Goal Creatinine. Due on due Goal Update Social Hi story. Due on due Goal WIRE STITCHER Paperwork. Due on due Goal Medication Recon [...] Goal Height. Due on d ue Goal NUTRITION HELPER Scanned. Due on due Goal Weight. Due on d ue Goal ALT (SGPT). Due on due Goal Creatinine. Due on due Goal WIRE STITCHER Paperwork. Due on due Goal Order Annual PT. Due on due Goal Tobacco Use. Due on due Goal Medication Recon ciliation. Due on due Goal Update Social Hi story. Due on due Goal Unhealthy drug u se screening. Due on due Goal NUTRITION HELPER Scanned. Due on due Goal OARS. Due on due Goal ALT (SGPT). Due on due Goal Order Annual PT. Due on due Goal PHQ-9. Due on du e Goal Tobacco Use. Due on due Goal Creatinine. Due on due Goal FIT. Due on due Goal Hepatitis C scre ening. Due on due Goal UDT. Due on due Goal WIRE STITCHER Paperwork. Due on due Goal AST (SGOT). [...] Order Annual PT. Due on due Goal WIRE STITCHER Paperwork. Due on due Goal NUTRITION HELPER Scanned. Due on due Goal OARS. [...] vaccine ( ). Due on due Goal Review Allergy List. [...] Goal Lipid panel. Due on due Goal NUTRITION HELPER Scanned. Due on due Goal Tobacco [...] vaccine ( ). Due on due Goal WIRE STITCHER Paperwork. Due on due Goal Medication Recon [...] vaccine ( ). Due on due Goal NUTRITION HELPER Scanned. Due on due Goal Height. Due on d ue Goal WIRE STITCHER Paperwork. Due on due Goal PHQ-9. Due [...] ue Goal Creatinine. Due on due Goal NUTRITION HELPER Scanned. Due on due Goal Order Annual PT. Due on due Goal FIT-DNA. Due on due Goal WIRE STITCHER Paperwork. Due on due Goal Zoster vaccine [...] Social Hi story. Due on due Goal NUTRITION HELPER Scanned. Due on due Goal UDT. Due on due Goal Review Allergy List. Due on due Goal Creatinine. Due on due Goal ALT (SGPT). Due on due Goal WIRE STITCHER Paperwork. Due on due Goal Order Annual [...] Goal Weight. Due on d ue Goal NUTRITION HELPER Scanned. Due on due Goal ALT (SGPT). Due on due Goal PHQ-9. Due on du e Goal CT-Colonography. Due on due Goal Creatinine. Due on due Goal Hepatitis C scre ening. Due on due Goal UDT. Due on due Goal WIRE STITCHER Paperwork. Due on due Goal Zoster vaccine [...] due Goal Creatinine. Due on due Goal WIRE STITCHER Paperwork. Due on due Goal Medication Recon ciliation. Due on due Goal NUTRITION HELPER Scanned. Due on due Goal PHQ-9. [...] Goal Height. Due on d ue Goal NUTRITION HELPER Scanned. Due on due Goal Creatinine. Due on due Goal UDT. Due on due Goal ALT (SGPT). Due on due Goal Review Allergy List. Due on due Goal WIRE STITCHER Paperwork. Due on due Goal Order Annual [...] Goal ALT (SGPT). Due on due Goal NUTRITION HELPER Scanned. Due on due Goal WIRE STITCHER Paperwork. Due on due Goal Height. Due [...] Goal Height. Due on d ue Goal NUTRITION HELPER Scanned. Due on due Goal OARS. Due on due Goal Weight. Due on d ue Goal Creatinine. Due on due Goal AST (SGOT). Due on due Goal WIRE STITCHER Paperwork. Due on due Goal UDT. Due on due Goal Review Allergy List. Due on due Goal Update Social Hi story. Due on due Goal Order Annual PT. Due on due Goal Tobacco Use. Due on due Goal Height. Due on d ue Goal PHQ-9. Due on du e Goal WIRE STITCHER Paperwork. Due on due Goal Order Annual PT. Due on due Goal Tobacco Use. Due on due Goal Update Social Hi story. Due on due Goal OARS. Due on due Goal Weight. Due on d ue Goal NUTRITION HELPER Scanned. Due on due Goal Medication Recon ciliation. Due on due Goal UDT. Due on due Goal ALT (SGPT). Due on due Goal Review Allergy List. Due on due Goal Creatinine. Due on due Goal AST (SGOT). Due on due Goal WIRE STITCHER Paperwork. Due on due Goal Order Annual PT. Due on due Goal NUTRITION HELPER Scanned. Due on due Goal Creatinine. [...] Order Annual PT. Due on due Goal NUTRITION HELPER Scanned. Due on due Goal Weight. Due on d ue Goal Update Social Hi story. Due on due Goal WIRE STITCHER Paperwork. Due on due Goal Tobacco Use. Due on due Goal ALT (SGPT). Due on due Goal Creatinine. Due on due Goal Height. Due on d ue Goal Review Allergy List. Due on due Goal PHQ-9. Due on du e Goal WIRE STITCHER Paperwork. Due on due Goal Creatinine. Due [...] Order Annual PT. Due on due Goal NUTRITION HELPER Scanned. Due on due Goal Order Annual PT. Due on due Goal Weight. Due on d ue Goal OARS. Due on due Goal Creatinine. Due on due Goal Height. Due on d ue Goal Tobacco Use. Due on due Goal AST (SGOT). Due on due Goal NUTRITION HELPER Scanned. Due on due Goal WIRE STITCHER Paperwork. Due on due Goal Update Social Hi story. Due on due Goal UDT. Due on due Goal ALT (SGPT). Due on due Goal Medication Recon ciliation. Due on due Goal PHQ-9. Due on du e Goal Review Allergy List. Due on due Goal NUTRITION HELPER Scanned. Due on due Goal Creatinine. Due on due Goal WIRE STITCHER Paperwork. Due on due Goal Order Annual [...] Review Allergy List. Due on due Goal WIRE STITCHER Paperwork. Due on due Goal NUTRITION HELPER Scanned. Due on due Goal Medication Recon ciliation. Due on due Goal Creatinine. Due on due Goal Tobacco Use. Due on due Goal Height. Due on d ue Goal AST (SGOT). Due on due Goal Creatinine. Due on due Goal WIRE STITCHER Paperwork. Due on due Goal OARS. Due on due Goal Order Annual PT. Due on due Goal ALT (SGPT). Due on due Goal NUTRITION HELPER Scanned. Due on due Goal AST (SGOT). Due on due Goal PHQ-9. Due on du e Goal Weight. Due on d ue Goal [...] due Goal Creatinine. Due on due Goal WIRE STITCHER Paperwork. Due on due Goal AST (SGOT). Due on due Goal NUTRITION HELPER Scanned. Due on due Goal Weight. [...] Goal Tobacco Use. Due on due Goal WIRE STITCHER Paperwork. Due on due Goal NUTRITION HELPER Scanned. Due on due Goal Order [...] ue Goal PHQ-9. Due on du e Appointment Belkis Manjarrez Pt BOOKE D Future Order: Lab Order Drug Tara t Def 22+ Classes (G0483), Ordered on: Ordered History Of Present Illness Encounter Date Complaint History Of Presemma nt Illness Comments: Belkis richardson resents virtually for a follow up regarding an acute flare of her chronic low back pain and cancer related pain. She presents with her Serge today. C/o severe pain in her chest and lungs since her medication change ~1 week ago. She has her repeat BL SIJ injections scheduled for 09/12/23 which she is hopeful will improve her low back pain, but she is still concerned about her uncontrolled cancer-pain with her worsening dx. Inquires about adjusting her regimen accordingly.Is currently managed on Minatare 10-325mg max 6/day with less relief than her prior Oxycodone and increased breakthrough pain. Agreeable to return to Oxycodone with the ability to take up to 6/day on days with increased pain. Advised to take less if her pain is more manageable. Denies any side effects with current medication. No other concerns today.Of note, she will be bringing in her remaining Hydrocodone on 09/12/23 for med waste. low back pain Severity level i s 8. Duration: chronic. The problem is worsening. It occurs persistently. Location of pain is lower back, chest and lungs. Comments: Belkis richardson resents in clinic for a follow up and medication refill regarding ongoing low back pain and cancer related pain. Patient reports her lower back pain has been worse this month. She has taken a leave of absence from work and has been spending some time with family which she enjoys. Reports she stopped IV chemotherapy recently and there was another tumor found in her brain in recent scans. Began another round of radiation. States she was cleared for injections with TCPC by her oncologist and would like to move forawrd with repeat BL SIJ injections.Continues with Lacosamide through neurology at [facility] with a decrease in frequency of her seizures. She is happy to have some improvement with medications. Her last seizure was on 09/02/23.Of note, her cancer center referred her to [facility] to eventually take her in for end-of-life care. She is established and has been working with Aleida Ambrose LPN. Will not be receiving treatment yet there but is happy to have someone to take her. Will continue with TCPC in the interim.Has struggled with both her chronic pain and cancer-related pain lately. States both seem to exacerbate eachother. For example her coughing fits in the morning worsen her back pain. Has not been able to control her pain well with her worsening dx and the inability to complete injections. Therefore, she presents short with her medication today. Discussed changing her regimen to keep up with her worsening cancer pain and she is agreeable. Reports current medication regimen provides 50-60% pain relief. Denies any side effects with current medication. No other concerns today. low back pain Severity level i s 8. Duration: chronic. The problem is worsening. It occurs persistently. Location of pain is lower back and Si joints. The client describes the pain as an ache and sharp. Symptoms are aggravated by ascending stairs, descending stairs, lifting, standing, twisting, prolonged positioning and housework. Symptoms are relieved by heat, pain meds/drugs and rest. Comments: Belkis richardson resents virtually for a follow up and medication refill regarding ongoing low back pain. Patient reports her lower back pain has been worse this month and at a level 5/10. She continues to work and her company is able to accommodate her as needed.Continues with IV chemotherapy and most recent scans predict she has 1 year left to live based on her stage 4 lung cancer progression. Completed an updated PET scan 07/31/23 and has an MRI scheduled for tomorrow 08/07/23. Plans to review them with her specialist on 08/11/23 prior to her next Chemotherapy treatment. Injections are not allowed per Oncology.States she was started on Lacosamide through neurology at [facility] for her seizures. Notes still having them but not as often as before. She is happy to have some improvement with medications.Of note, her hearing continues to worsen, but she was able to get hearing aids which are helpful.Reports current medication regimen provides 50-60% pain relief. Rediscussed referral to hospice for medication management. Denies any side effects with current medication. No other concerns today. low back pain Severity level i s 5. Duration: chronic. The problem is worsening. It occurs persistently. Location of pain is lower back. Comments: Belkis richardson resents virtually for a follow up and medication refill regarding ongoing low back pain. Patient reports her lower back pain has stable this month and at a level 4/10.Continues with IV chemotherapy and recent scans predict she has 1 year left to live based on her stage 4 lung cancer progression. Has been able to discontinue use of her prednisone. Injections are not allowed per Oncology.States she is still experiencing seizures and will be started on a new medication through her neurology at [facility]. Her last seizure was yesterday and prior to that 3 days ago. Notes they are scary for her because she falls when they happen. Reports current medication regimen provides 50-60% pain relief. Denies any side effects with current medication. No other concerns today. low back pain Severity level i s 4. Duration: chronic. The problem is stable. It occurs persistently. Location of pain is lower back. Comments: Belkis richardson resents for a follow [...] Also will be consulting with neurology through [facility] in the near future.Reports current medication regimen [...] tabs short today and admits to self-escalation. WIRE STITCHER violation issued. Denies any side effects with [...] into getting hearing aids. 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 Continues to have relief with her Oxycodone 10mg. Feels her pain is overall managed at this time. Presents with a small surplus today. Denies any side effects with current medication. No other concerns today. Comments: Belkis richardson resents via [facility] for a virtual follow up and medication [...] left back. Comments: Belkis richardson resents via [facility] for a virtual follow up and medication [...] will also have to travel back to [place] for work as well.Current medication regimen of Minatare 5-325mg provides 50-60% pain relief for increased [...] her recent long flight.Continues to use her Minatare sparingly which she notices an appreciable benefit. [...] at previous OV. Continues to use her Minatare sparingly which she notices an appreciable benefit. [...] completed on August 02, 2021 at the [facility]. She is requesting to repeat injections late October as she is nervous for her 10 hour flight for a work related trip to [place]. Continues to use her Minatare sparingly which she notices an appreciable benefit.Patient is not accompanied today. No other concerns. Comments: Belkis dylan resents for virtual follow-up and medication management. [...] with prescribed medication. Continues to take her Minatare sparingly. This helps her maintain her lowest [...] active recently.Of note, she is traveling to [place] soon.She reports greater than 50% relief with her medication regimen. Denies any side effects. Presents on track with prescribed medication. Continues to take her Minatare sparingly. This helps her maintain her lowest [...] with prescribed medication. Continues to take her Minatare sparingly. This helps her maintain her lowest [...] ordered at previous OV.Continues to take her Minatare sparingly. This helps her maintain her lowest [...] due to recently traveling back from [place] to [place]. She spent the winter in [place]. Her worst complaint is her left side pain. She requests repeat TPI's as well as a repeat left SI joint injection. Previous TPI's and SI joint injection provided greater than 70% relief for over three months. She also notices functional improvements with the injections.Continues to take her Minatare sparingly. This helps her maintain her lowest [...] OV. Notes she continues to benefit from Minatare and requests a refill. Of note, she has been able to enjoy her time in [place]. Reports current medication regimen provides 50-60% pain [...] positioning during her car ride to [place]. Pain has slowly been returning to baseline. Notes she continues to benefit from Minatare and requests a refill. Reports current medication [...] positions. Back Pain (comments) Belkis is charla alvarog with us today via [facility] for follow up and medication refill. Low back pain persists this month, but medication does help to some extent. She looks forward to lumbar EVELIN scheduled for later today. Of note, patient plans to travel to [place] for 3 months starting on 02/02. She [...] today. Back Pain (comments) Belkis is charla alvarovira with us today via [facility] [...] is charla mooney with us today via [facility] for follow up and medication [...] is charla mooney with us today via [facility] Visit for follow up and medication [...] morning. 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 Dr. Henry is requesting [facility] takeover patient's pain management regimen. She [...]
--- OUTSIDE RECORDS SUMMARY | 2023-09-17 00:11 | XMS_ITS | Clinical Summary ---
Author Organization [employer] [facility] Address [place], [place] [address] Care Team Providers Care Rn Child Name Role Phone Andres Trimble MD Primary Care Provider + Ceci Sanders RN, BSN Unavailable [phone] Allergies No known active allergies Medications [...] - 07/31/2023 11:59 PM CDT Hospital Encounter [facility] [address] [place] [address] Tita Driver MD Small cell lung cancer, [...] Comments Blood Pressure 120/74 02/04/2023 2:54 PM TELEVISION PICTURE TUBE REBUILDER Pulse 60 02/04/2023 2:54 PM TELEVISION PICTURE TUBE REBUILDER Temperature 36.6 ??C (97.8 ??F) 06/17/2022 1 1:40 AM CDT Respiratory Rate 18 06/17/2022 12:2 5 PM CDT Oxygen Saturation 99% 02/04/2023 2:54 PM TELEVISION PICTURE TUBE REBUILDER Inhaled Oxygen Concentration - - Weight 68.4 kg (150 lb 14.4 oz) 02/04/2023 2:54 PM TELEVISION PICTURE TUBE REBUILDER Height 170.2 cm (5' 7) 06/14/2022 12:0 [...] SCREEN FFDM (IA) Routine 02/08/2009 9:12 AM TELEVISION PICTURE TUBE REBUILDER Other Screening Mammogram LIPID PANEL Routine 02/08/2009 8:53 AM TELEVISION PICTURE TUBE REBUILDER Well Woman Exam from Last 3 Months [...] 16 Negative Negative 08/16/2021 4:43 PM CDT [facility] TYPE 18 Negative Negative 08/16/2021 4:43 PM CDT [facility] OTHER HIGH RISK TYPES Negative Negative 08/16/2021 4:43 PM CDT [facility] Other (Cervical/Vagina l) 08/14/2021 8:15 AM CDT 08/15/2021 7:46 AM CDT Narrative [facility] - 08/16/2021 4:43 PM CDT HPV types 16, 18, 31, 33, 35, 39, 45, 51, 52, 56, 58, 59, 66 and 68 DNA were undetectable or below the pre-set threshold. Methodology: James José Miguel 4800 HPV Test Andres Trimble MD MICROBIOLOGY [facility] [address] [place] [address], * XR MAMMO BILAT SCREEN FFDM (02/08/2009 9:12 AM TELEVISION PICTURE TUBE REBUILDER) MAMMOGRAM ACR 2 Benign Finding Anatomical Region Laterality Modality BREASTS, Breast Left, Breast Right Bilateral Mammography 02/08/2009 9:12 AM TELEVISION PICTURE TUBE REBUILDER Narrative 02/08/2009 3:26 PM TELEVISION PICTURE TUBE REBUILDER Benign findings noted on mammogram. ??For complete [...] * (ABNORMAL) LIPID PANEL (02/08/2009 8:53 AM TELEVISION PICTURE TUBE REBUILDER) CHOLESTEROL,TOTAL 239(H) 110 - 199 mg/dL [facility] TRIGLYCERIDES 164(H) <150 mg/dL [facility] HDL CHOLESTEROL 60 >40 mg/dL [facility] CHOL/HDL RATIO 3.[address] [facility] LDL CHOLESTEROL 146(H) <131 mg/dL [facility] PATIENT STATUS Fasting [facility] Blood specimen (specimen) BLOOD SPECIMEN / Unknown 02/08/2009 8:53 AM TELEVISION PICTURE TUBE REBUILDER 02/08/2009 8:49 AM TELEVISION PICTURE TUBE REBUILDER Lexi Shirley MD CHEMISTRY [facility] [address] [place] [address] from Last 3 Months or Most Recently Relevant to Health Maintenance Advance Directives * Full Code (Latest Code Status on File) Date Activated Date Inactivated Comments 06/17/2022 10:00 AM 06/17/2022 2:54 PM Question Answer Comments Code Status Discussion: Reviewed Preferences Care Teams Rn Child Relationship Specialty Start Date End Date Andres Trimble MD [address] [place] [address] PCP - General Family Practice 02/04/19 Ceci Sanders, RN, BSN [address] [place] [address] Nurse Navigator - Oncology Registered Nurse 06/18/22
== END 2023-09-13 20:05 | disposition home or self-care (01) ==
LOC: AMB 09-17 00:02
PROVIDERS: PCP Family Medicine; Visit Provider Family Medicine
DX: R53.1 Weakness (principal)
CPT/HCPCS: A0998

== ENCOUNTER 2023-09-15 09:50 | Outpatient (RCR) | payer BC, SELFPAY ==
[2023-06-27 08:23] LABS: Basophils Absolute Auto 0.01 K/uL (0.00-0.30); Basophils Percent Auto 0.1 % (0.0-3.0); Eosinophils Absolute Auto 0.02 K/uL (0.00-0.50); Eosinophils Percent Auto 0.3 % (0.0-7.0); Hematocrit 35.2 % (33.0-51.0); Hemoglobin* 11.7 gm/dL (12.0-16.0); Immature Granulocytes Abs Auto 0.12 K/uL (0.00-0.30); Immature Granulocytes Pct Auto 1.6 %; Lymphocytes Percent Auto 6.2 % (20-44); Mean Corpuscular HGB Conc 33 gm/dL (32-36); Mean Corpuscular Hemoglobin 34 pg (26-34); Mean Corpuscular Volume 103 fL (80-100); Monocytes Percent Auto 8.7 % (0.0-11.0); Neutrophils Percent Auto 83.1 % (42.0-72.0); Platelet Count* 132 K/uL (140-440); RDW Coefficient of Variation % 15.1 % (11.5-15.5); Red Blood Count 3.41 m/uL (4.00-5.20); White Blood Count* 7.28 K/uL (4.50-11.00)
[2023-06-27 08:30] LABS: Slide Review Reflex No
[2023-06-27 08:36] LABS: Albumin* 3.9 g/dL (3.3-5.0); Chloride* 104 mmol/L (96-114)
[2023-06-27 08:37] LABS: Potassium* 3.6 mmol/L (3.6-5.1); Sodium* 136 mmol/L (135-149)
[2023-06-27 08:39] LABS: Alkaline Phosphatase* 68 U/L (40-150); Anion Gap 1 mEq/L (7-15); Aspartate Amino Transferase* 23 U/L (12-35); Bilirubin Total* 0.3 mg/dL (0.1-1.5); Carbon Dioxide* 31 mmol/L (20-32); Creatinine* 0.6 mg/dL (0.5-1.5); Estimated Glomerular Filt Rate 103 ml/min; Total Protein* 6.4 g/dL (6.0-8.3)
[2023-06-27 08:40] LABS: Alanine Aminotransferase* 26 U/L (4-35); Blood Urea Nitrogen* 8 mg/dL (7-30); Calcium* 8.3 mg/dL (8.4-10.6); Glucose* 130 mg/dL (60-115)
[2023-06-30 09:02] VITALS: BP 126/58; PULSE 67; RESP 16; TEMP 36.6; O2SAT 96
[2023-06-30] MEDS: SODIUM CHLORIDE 0.9 % (FLUSH) 10 ML SYRINGE IVF ×2 (09:15→10:59)
[2023-06-30] MEDS: 0.9 % SODIUM CHLORIDE 250 ml IV (09:15)
[2023-06-30] MEDS: PALONOSETRON 0.25 MG/5 ML inj IV (09:21)
[2023-06-30] MEDS: dexAMETHasone 20 MG in 0.9 % SODIUM CHLORIDE 100 ml 100 ML 420 MG IVPB (09:21)
[2023-06-30] MEDS: HEPARIN 500 UNIT/5 ML SYRINGE IVF (10:59)
[2023-07-18 08:19] LABS: Basophils Absolute Auto 0.02 K/uL (0.00-0.30); Basophils Percent Auto 0.3 % (0.0-3.0); Eosinophils Absolute Auto 0.05 K/uL (0.00-0.50); Eosinophils Percent Auto 0.8 % (0.0-7.0); Hematocrit 34.6 % (33.0-51.0); Hemoglobin* 11.4 gm/dL (12.0-16.0); Immature Granulocytes Abs Auto 0.09 K/uL (0.00-0.30); Immature Granulocytes Pct Auto 1.4 %; Lymphocytes Percent Auto 11.6 % (20-44); Mean Corpuscular HGB Conc 33 gm/dL (32-36); Mean Corpuscular Hemoglobin 34 pg (26-34); Mean Corpuscular Volume 102 fL (80-100); Monocytes Percent Auto 12.4 % (0.0-11.0); Neutrophils Percent Auto 73.5 % (42.0-72.0); Platelet Count* 184 K/uL (140-440); RDW Coefficient of Variation % 14.7 % (11.5-15.5); Red Blood Count 3.39 m/uL (4.00-5.20); White Blood Count* 6.36 K/uL (4.50-11.00)
[2023-07-18 08:25] LABS: Slide Review Reflex No
[2023-07-18 08:32] LABS: Albumin* 4.6 g/dL (3.3-5.0); Chloride* 108 mmol/L (96-114); Sodium* 139 mmol/L (135-149)
[2023-07-18 08:33] LABS: Potassium* 3.9 mmol/L (3.6-5.1)
[2023-07-18 08:35] LABS: Alkaline Phosphatase* 77 U/L (40-150); Anion Gap 4 mEq/L (7-15); Aspartate Amino Transferase* 20 U/L (12-35); Bilirubin Total* 0.6 mg/dL (0.1-1.5); Blood Urea Nitrogen* 13 mg/dL (7-30); Carbon Dioxide* 27 mmol/L (20-32); Creatinine* 0.6 mg/dL (0.5-1.5); Estimated Glomerular Filt Rate 103 ml/min; Total Protein* 7.3 g/dL (6.0-8.3)
[2023-07-18 08:36] LABS: Alanine Aminotransferase* 14 U/L (4-35); Glucose* 81 mg/dL (60-115)
[2023-07-18 09:25] LABS: HDL Cholesterol* 87 mg/dL (>=50); LDL Cholesterol Calculated 71 mg/dL (<100); Triglycerides* 137 mg/dL (40-149)
[2023-07-18 09:35] LABS: Cholesterol* 185 mg/dL (90-199)
[2023-07-21 08:17] VITALS: BP 145/74; PULSE 70; RESP 18; TEMP 36.7; O2SAT 96
[2023-07-21] MEDS: dexAMETHasone 20 MG in 0.9 % SODIUM CHLORIDE 100 ml 100 ML 408 MG IVPB (08:47)
[2023-07-21] MEDS: PALONOSETRON 0.25 MG/5 ML inj IV (08:47)
[2023-07-21] MEDS: SODIUM CHLORIDE 0.9 % (FLUSH) 10 ML SYRINGE IVF ×2 (08:49→10:07)
[2023-07-21] MEDS: 0.9 % SODIUM CHLORIDE 250 ml IV (08:49)
[2023-07-21] MEDS: HEPARIN 500 UNIT/5 ML SYRINGE IVF (10:07)
--- NOTE | 2023-07-21 10:31 | ONC.NURNOTE ---
Change in Seizure Medication Pt here for treatment today. Notes change in anti-seizure medication. Keppra increased to 3000 mg q AM/2000 mg Q PM from 2000 mg BID. New addition of Lacosamide (Vimpat). Pt notes she has some nausea with it but is manageable with antiemetics.
--- NOTE | 2023-08-08 14:07 | PC.NURSE ---
Called pt today as she did not come to [facility] for her blood draw this morning. Belkis informed this RN that Dr. Drvier called them on Friday with results after a recent PET scan done in [place]. Per Belkis, Dr. Driver said that lab and chemo appt for today and Friday would be cancelled and that she would receive no more treatment. Pt is to see MD on 08/18/2023 to discuss further but Belkis is under the impression that she will be getting no further treatment and will have only a short time to live. Belkis mentioned that she is working with her employer regarding leave from work. We discussed the priority for Belkis to enjoy her last days/weeks/months on [place] and she agreed. [facility] will watch for this paperwork from her employer and will complete it with that goal in mind. Supportive listening provided. Pt's appointments for today and Friday were cancelled. Tootie Mccurdy APRN was updated as well as pharmacy.
[2023-08-19 08:42] LABS: Creatinine* 0.6 mg/dL (0.5-1.5); Estimated Glomerular Filt Rate 103 ml/min
--- NOTE | 2023-08-20 10:35 | ONC.NURNOTE ---
[employer] form completed with patient and input- signed by Dr Driver and faxed to [phone] Patient has a copy of completed forms most recent Dr Driver consult note faxed with forms
--- NOTE | 2023-08-20 15:13 | ONC.NURNOTE ---
Recieved call from [facility], they met with pt and she is not ready for hospice at this time. They will follow up with pt every [address] Driver updated.
== END 2023-09-20 23:59 | disposition home or self-care (01) ==
LOC: CCIC 09:50
PROVIDERS: Clinical Nurse Specialist; PCP Family Medicine; Referring Provider Family Medicine; Visit Provider Internal Medicine Hematology & Oncology
DX: C34.91 Malignant neoplasm of unspecified part of right bronchus or lung (principal); E05.00 Thyrotoxicosis with diffuse goiter without thyrotoxic crisis or storm
CPT/HCPCS: 36415; 80053; 80061; 82465; 82565; 85025; 96376; 96377; 96413; 99215; G0463; J2506; J1100; J1642; J2469; J7050; J9223